=== PATIENT | female | born 1945 | race Caucasian/White ===

== ENCOUNTER 2019-10-06 13:40 | Outpatient (CLI) | payer MEDICARE, SELFPAY ==
--- NOTE | ~2019-10-06 | XR_ITS ---
EXAMINATION: XR chest 2V DATE: 10/06/2019 15:08 INDICATION: Hypertension. Preop. TECHNIQUE: Frontal and lateral views of the chest were obtained. COMPARISON: Chest single view 07/07/2017, chest CT 08/13/2016 FINDINGS: There is mild scarring at the lung apices. A calcified right lung nodule and calcified righ t hilar and mediastinal lymph nodes are consistent with old granulomatous disease. There is blunting of right posterior costophrenic angle. No pneumothorax. The heart size is normal. IMPRESSION: 1. Blunting of right posterior costophrenic angle, consistent with scarring versus tiny pleural effus ion. 2. Mild scarring at the lung apices. Reviewed, dictated and finalized at location A. IMPRESSION: 1. Blunting of right posterior costophrenic angle, consistent with scarring oleksandr eladio tiny pleural effusion. 2. Mild scarring at the lung apices.
[2019-10-06 15:08] LABS: Basophils Absolute Auto 0.1 K/mm3 (0.0-0.1); Basophils Percent Auto 0.8 % (0.2-1.2); Eosinophils Percent Auto 0.1 % (0-4.4); Hematocrit 42.5 % (37.0-47.0); Hemoglobin 13.8 g/dL (12.0-15.0); Immature Granulocyte Absolute 0.44 K/mm3 (0.00-0.031); Immature Granulocyte Percent A 3.8 % (0-0.5); Lymphocytes Absolute Auto 1.11 K/mm3 (0.9-3.2); Lymphocytes Percent Auto 9.7 % (18.3-44.2); Mean Corpuscular HGB Conc 32.5 g/dl (32-36); Mean Corpuscular Hemoglobin 31.3 pg (26-34); Mean Corpuscular Volume 96.4 fl (80-100); Mean Platelet Volume 10.4 fl (7.4-10.4); Monocytes Absolute Auto 0.5 K/mm3 (0.1-0.6); Neutrophils Absolute Auto 9.3 K/mm3 (1.3-6.7); Neutrophils Percent Auto 81.6 % (45.5-73.1); Platelet Count Result 256 k/mm3 (150-375); Red Blood Count 4.41 M/mm3 (4.2-5.4); White Blood Count 11.5 K/mm3 (4.5-10.0)
[2019-10-06 15:19] LABS: Albumin Level 4.7 g/dL (3.5-5.1); Blood Urea Nitrogen 23 mg/dL (7-17); Calcium 10.2 mg/dL (8.4-10.2); Carbon Dioxide 29 mmol/L (22-30); Chloride 98 mmol/L (98-107); Estimated Glomerular Filt Rate 31; Glucose 104 mg/dL (65-105); Potassium 3.9 mmol/L (3.4-5.0); Sodium 133 mmol/L (137-145)
[2019-10-06 15:20] LABS: Hemoglobin A1C 5.1 % (<5.7)
[2019-10-06 15:21] LABS: Urine Cotinine NEGATIVE
== END 2019-10-06 13:41 | disposition home or self-care (01) ==
LOC: ANHSURGERY 13:45
PROVIDERS: PCP Internal Medicine; Visit Provider Orthopaedic Surgery
DX: M17.11 Unilateral primary osteoarthritis, right knee (principal); Z01.818 Encounter for other preprocedural examination; R91.8 Other nonspecific abnormal finding of lung field
CPT/HCPCS: 36415; 71046; 80048; 80307; 82040; 83036; 85025; 86850; 86900; 86901; 87070

== ENCOUNTER 2019-10-12 12:10 | Outpatient (CLI) | payer MEDICARE, SELFPAY ==
[2019-10-12 12:52] LABS: Hematocrit 41.2 % (37.0-47.0); Hemoglobin 13.6 g/dL (12.0-15.0); Mean Corpuscular Hemoglobin 31.2 pg (26-34); Mean Corpuscular Volume 94.5 fl (80-100); Mean Platelet Volume 10.4 fl (7.4-10.4); Platelet Count Result 243 k/mm3 (150-375); Red Blood Count 4.36 M/mm3 (4.2-5.4); Red Cell Distribution Width 13.1 % (11.5-14.5); White Blood Count 11.3 K/mm3 (4.5-10.0)
[2019-10-12 12:59] LABS: Creatinine Urine 41.3 mg/dL; Total Protein Urine Random 13 mg/dL
[2019-10-12 13:05] LABS: Albumin Level 4.8 g/dL (3.5-5.1); Blood Urea Nitrogen 24 mg/dL (7-17); Calcium 10.4 mg/dL (8.4-10.2); Carbon Dioxide 29 mmol/L (22-30); Chloride 97 mmol/L (98-107); Estimated Glomerular Filt Rate 37; Glucose 110 mg/dL (65-105); Phosphorus 3.5 mg/dL (2.5-4.5); Potassium 3.9 mmol/L (3.4-5.0); Sodium 133 mmol/L (137-145)
[2019-10-12 13:16] LABS: Parathyroid Intact 103.6 pg/mL (7.5-53.5)
[2019-10-12 13:48] LABS: Vitamin D 25 Hydroxy 51.1 ng/mL
[2019-10-18 15:56] LABS: Chloride Rand Ur 47 mmol/L (32-290); Chloride/Creatinine Rand Ur 118 (38-318); Creatinine Random Urine 40 mg/dL (20-275)
== END 2019-10-12 12:11 | disposition home or self-care (01) ==
PROVIDERS: PCP Internal Medicine; Referring Provider Orthopaedic Surgery; Visit Provider Internal Medicine Nephrology
DX: N18.3 Chronic kidney disease, stage 3 (moderate) (principal)
CPT/HCPCS: 36415; 80069; 82306; 82436; 82570; 83970; 84156; 85027; 85999

== ENCOUNTER 2019-10-14 00:03 | Outpatient (CLI) | payer MEDICARE, SELFPAY ==
[2019-10-14 17:53] LABS: SARS-CoV-2 RNA PCR Negative
== END 2019-10-14 00:04 | disposition home or self-care (01) ==
PROVIDERS: PCP Internal Medicine; Visit Provider Orthopaedic Surgery
DX: Z20.828 Contact with and (suspected) exposure to other viral communicable diseases (principal); Z01.812 Encounter for preprocedural laboratory examination
CPT/HCPCS: 87635; C9803; U0003

== ENCOUNTER 2019-10-17 02:06 | Day surgery (SDC) | payer MEDICARE, SELFPAY ==
[2019-10-06 14:23] VITALS: BMI 21.4
[2019-10-06 15:03] VITALS: BP 161/89; PULSE 84; RESP 18; TEMP 37; O2SAT 98
--- NOTE | 2019-10-14 13:52 | HP_ITS ---
DATE OF SERVICE: 10/17/2019 ADMIT DIAGNOSIS: Degenerative joint disease, right knee. HISTORY OF PRESENT ILLNESS: The patient is a 74-year-old female patient of Dr. Isaacs presents today for a right total knee arthroplasty. She has a history of rheumatoid arthritis and she is having continued symptoms of rather severe pain in the right knee. She has been on rheumatoid medications on a regular basis. She has had 2 prior cortisone injections with aspirations in the past, which gave her only very short-term relief of her symptoms, last ones being well over 3 months. She has advanced arthritis in the knee, mostly in the medial compartment as well as mildly in the patellofemoral joint. She has reached a point where her symptoms were rather severe on daily basis and feels she would rather proceed with total knee arthroplasty rather continue nonsurgical treatment. PAST MEDICAL HISTORY: She has had tubal ligation in the past, tonsils in the past. She has a history of atrial fibrillation. She has also had a history of runs of SVT seen on Holter monitor in the past as well. CURRENT MEDICATIONS: 1. Alprazolam 0.5 mg q.h.s. 2. Atorvastatin 20 mg daily. 3. Carvedilol 3.125 mg daily. 4. Hydrochlorothiazide 25 mg daily. 5. Leflunomide 10 mg daily. 6. Lysine 500 mg daily. 7. Mag oxide 400 mg twice a day. 8. Omeprazole 40 mg daily. 9. Potassium 99 twice daily. 10. Prednisone 5 mg daily. 11. Spironolactone 25 mg daily. 12. Vitamin B complex daily. 13. Xarelto 15 mg daily. ALLERGIES: SULFADIAZINE, WHICH CAUSES SEVERE NAUSEA. FAMILY HISTORY: Severe hypertension disorder and cancer. SOCIAL HISTORY: She is a nonsmoker, who quit 20 years ago. PHYSICAL EXAMINATION: VITAL SIGNS: The patient is 5 feet 5 inches tall. Other vital signs per nursing on the morning of surgery. HEENT: Grossly normal. LUNGS: Clear bilaterally. HEART: Regular rate and rhythm. EXTREMITIES: Range of motion of the right knee is from 0-145 degrees. She has moderately large effusion and synovitis. No obvious instability. Full range of motion of the hip without discomfort. Negative Stinchfield maneuvers. Moderate tenderness diffusely around the right knee. Venous stasis skin changes in both calves, right greater than left. No ulcers noted. 2+ dorsalis pedis, 1+ posterior tibial pulse. Reports numbness and tingling in both feet, which is chronic. She has no edema in the lower extremities. She has pronounced upper thoracic kyphosis and she does have dependent rubor in the right 2nd and 3rd toes. Walks with a mild limp. DIAGNOSTIC DATA: X-ray showed advanced medial compartment arthritis. There is medial subluxation of the femur on the tibia. Osteopenia noted. IMPRESSION: The patient has severe medial compartment arthritis with continued symptoms in her knee. She would like to proceed with total knee arthroplasty at this point. Surgical procedure as well as risks and complications were discussed. All questions were answered and we will proceed. The patient will see Dr. Isaacs for presurgical clearance. She has seen Dr. Oscar, the head of science and has been evaluated. She has had a stress test done on 09/28 of this year. Ejection fraction was 64% with normal left ventricular function, normal myocardial perfusion. Overall negative stress test. She has been cleared from Dr. Oscar. She will stop her Xarelto in 4 days prior to surgery. The patient also has stage 3 kidney disease, which is chronic and stable. She has seen Dr. Gao, non ferrous material handler and has been cleared on his standpoint as well. We will avoid anti-inflammatories on the patient postoperatively. Her nasal swab was negative. Sodium was slightly low at 133, potassium was normal. Her creatinine is 1.6 with a GFR of 31.
[2019-10-17] VITALS (14 sets, daily range): BP systolic 141–178; BP diastolic 67–96; PULSE 70–84; RESP 12–18; TEMP 36–36.7; O2SAT 94–100
--- NOTE | ~2019-10-17 | XR_ITS ---
EXAMINATION: XR knee RT 2V DATE: 10/17/2019 10:44 INDICATION: Postoperative evaluation following right total knee arthroplasty. TECHNIQUE: Anteroposterior and lateral views of the right knee were obtained. COMPARISON: None. FINDINGS: Right total knee arthroplasty with patellar resurfacing appears well seated and in near anatomic alig nment. No fractures identified. Expected postoperative subcutaneous intramedullary and intra-articul ar gas. IMPRESSION: 1. Right total knee arthroplasty, negative for postoperative purposes. Reviewed, dictated and finalized at location A.
--- NOTE | 2019-10-17 06:44 | WPDANESEPPF ---
Anes - Initial Pre Proc Eval Procedure: Operation Date: 10/17/19 07:30 Proposed Procedures p Right Total Knee Arthroplasty - Arash Oconnor MD Date/Time: 10/17/19 06:44 Surgeon: Arash Oconnor MD Pre Op Diagnosis: Right Knee RA Patient Data Age: 74 Gender: F Height: 1.7 m Weight: 61.5 kg Last Vital Signs Temp 37.0 C 10/06/19 15:03 Pulse 84 10/06/19 15:03 Resp 18 10/06/19 15:03 BP 161/89 H 10/06/19 15:03 Pulse Ox 98 10/06/19 15:03 Allergies Allergy/AdvReac Type Severity Reaction Status Date / Time Sulfa (Sulfonamide Allergy Unknown Nausea Verified 10/17/19 06:13 Antibiotics) Home Medications Medication Instructions Recorded Confirmed Type alprazolam 0.5 mg PO HS 10/06/19 10/06/19 History ascorbic acid (vitamin C) 500 mg PO DAILY 10/06/19 10/06/19 History atorvastatin 20 mg PO DAILY 10/06/19 10/06/19 History calcium citrate-vitamin D3 1 tablet PO DAILY 10/06/19 10/06/19 History [Citracal Regular] carvedilol 3.125 mg PO BID 10/06/19 10/06/19 History hydrochlorothiazide 25 mg PO DAILY 10/06/19 10/06/19 History lysine 500 mg PO DAILY 10/06/19 10/06/19 History magnesium oxide 400 mg PO BID 10/06/19 10/06/19 History omeprazole 40 mg PO DAILY 10/06/19 10/06/19 History potassium gluconate 198 mg PO DAILY 10/06/19 10/06/19 History prednisone 5 mg PO EVERY OTHER DAY 10/06/19 10/06/19 History prednisone 10 mg PO EVERY OTHER DAY 10/06/19 10/06/19 History rivaroxaban [Xarelto] 15 mg PO QPM 10/06/19 10/06/19 History spironolactone 25 mg PO BID 10/06/19 10/06/19 History vitamin B complex [B 1 tablet PO QPM 10/06/19 10/06/19 History Complex-Vitamin B12] Patient hx anesthesia problems: none Family hx anesthesia problems: none PMFSH Past Medical History Medical History (Updated 10/14/19 @ 13:14 by Eriberto Sanchez DO) Anxiety Atrial fibrillation GERD (gastroesophageal reflux disease) Hyperlipidemia Hypertension Rheumatoid arthritis Surgical History Surgical History (Updated 10/14/19 @ 13:14 by Eriberto Sanchez DO) History of tonsillectomy History of tubal ligation Family History Family History (Updated 10/26/18 @ 13:48 by DOCTOR UNKNOWN) Father Carcinoma of colon Mother Family history of congestive heart failure Other Family history of malignant neoplasm Hypertension Social History Social History Smoking status: Former smoker Smoking end date: 04/27/93 Alcohol intake: current Anes - Eval Final PreProcedure Day of Procedure 10/17/19 06:44 Patient weight: normal Heart: regular rate and rhythm Lungs: clear to auscultation and normal air movement Airway: Mallampati scale class II Neurological: alert and oriented Last oral intake: >/= 8 hours ASA classification: III Emergent: no Anesthetic plan: proceed Anesthesia type and monitoring: general LMA and standard monitoring Informed Consent: The patient's anesthetic plan and its attendant risks and benefits were discussed with the patient/family/POA. Questions were solicited and answers provided to the satisfaction of the patient/family/POA.
[2019-10-17] MEDS: LACTATED RINGERS 1,000 ML 30 ML IV CONT ×2 (06:45→10:35)
--- NOTE | 2019-10-17 07:24 | WPDHPUPDATE1 ---
History and Physical Update Update Date/Time: 10/17/19 07:24 History and Physical has been reviewed, including an updated exam of the patient. There are NO changes in the patient's condition. Risks, benefits, and alternatives have been discussed and questions answered. Patient agrees to proceed with procedure. Pt has venous stasis skin changes and 2 small 3-4 week old dry eschars on right leg which look to be healing fine. No Cellulitis . Risks of these worsening and risk of infection discussed . Option of postponement discussed. She would rather proceed and i think that is reasonable.
[2019-10-17] MEDS: ceFAZolin 2 GM/D5W 50 ML 2 GM/50 ML BAG IVPB (07:28)
[2019-10-17] MEDS: TRANEXAMIC ACID 1,000MG/ISO100 1,000 MG/100 ML BAG 200 MG IVPB (07:37)
[2019-10-17] MEDS: ceFAZolin SODIUM 1 GM VIAL 3 GM IRRIGATION (07:56)
[2019-10-17] MEDS: GENTAMICIN BONE CEMENT REFOBACIN 1 EACH TOPICAL (07:57)
[2019-10-17] MEDS: ceFAZolin SODIUM 1 GM VIAL IV PUSH (09:41)
--- NOTE | 2019-10-17 10:06 | PM.PROC ---
Procedure Note - Detailed Date of procedure: 10/17/19 Pre-op diagnosis: Right Knee RA RA OA right knee Post-op diagnosis: same Procedure performed: Right total knee arthroplasty Description of procedure: Patient was brought to the operating room and general anesthesia was administered. She received 2 g of Ancef 1 g of tranexamic acid preoperatively. The right leg was prepped draped in usual fashion. An op site was placed on the too small eschars. Limb was exsanguinated and tourniquet elevated to 250 mmHg. A 7 in longitudinal midline incision was used and a vastus medialis splitting approach utilized. Infrapatellar and suprapatellar fat pads were excised and a quadriceps synovectomy carried out. The cartilage on the patella and trochlea were in good condition but with her history of rheumatoid arthritis patellar resurfacing was selected. Patellar patella measured 23 mm in thickness and was cut to 17 mm. Bone quality of the patella was good. Next a guide rommel was inserted down the femoral canal after aspiration of canal contents using the 5 degree valgus cutting bushing 10 mm of bone removed the distal femur. This removed a little bit less than 10 medially because of osteophyte. Then we made the cut we introduced a few degrees of slope as she had a prominent curve on her distal femur. Next the tibial plateau was cut. We made a skim cut off the low point of the posterior central defect in the medial plateau in this removed about 8 laterally. PCL was recessed. Mild osteoporosis noted in the lateral plateau. Meniscal remnants were excised. The knee was just a little bit tight with the 10 mm spacer block in extension at this point. In flexion the medial side measured 9 mm the lateral gap 14. We set the femoral sizing guide to 5? of external rotation which matched Whitesides line nicely. Posterior referencing pins were placed. We placed the 65 cutting block and we saw that this would notch we went up to the 67.5 vanguard cutting block and this gave a flush cut with the anterior cortex. Posterior chamber cuts were made. The 67.5 overhung 1 mm laterally when it was line to line medially but otherwise fit well this time. The tibial alignment was confirmed to be appropriate. We had not released any medial capsule from the tibia thus far and we found it unnecessary to do so during the procedure. The tibia was sized to a size 71 vanguard which fit line to line posterolateral to anteromedial 1 placed at proper rotation referenced off the medial 3rd of the tibial tubercle anterior cortex of the tibial plateau and the foot. The tibia was punched and we trialed and with the size 10 insert we seemed to have appropriate stability in flexion and laterally and opened up 2 mm medial 1 appropriate anterior drawer stability and gravity flexion 145. S we were lacking about 10? of extension and there was a little bit of play medially laterally at this point. We removed the femoral trial released posterior central capsule and trialed again and this time the knee lacked about 6 or 7? of extension S. We proceeded to remove additional 2 mm of distal femur at this time. Chamfer cuts were reviewed sized. There is no posterior femoral bone removed this point. We trialed and the knee had a barely positive bounce at this time with the 10 insert 2-3 medial and 1-2 lateral opening. We removed we did a more thorough posterior central capsule released from the femur and then retry in the knee came out easily to full extension with a negative bounce with again 2-3 opening medial 1-2 lateral. Lug holes for the femur were drilled. The patella was sized to a 31 thin lug holes drilled. The bony surfaces were thoroughly irrigated and dried. A step drill was used in the sclerotic surface of the medial tibial plateau to make multiple perforations there. The mixed 2 batches of methylmethacrylate 1 continue gentamicin powder the cement was immediately applied the tibial component and then applied t
--- NOTE | 2019-10-17 11:16 | SUR.PHASEI ---
1115 - family updated on pt's status
[2019-10-17] MEDS: ACETAMINOPHEN 500 MG TABLET 1000 MG PO ×2 (14:08→20:00)
[2019-10-17] MEDS: POTASSIUM CHLORIDE 10 MEQ TABLET.ER PO (15:13)
[2019-10-17] MEDS: predniSONE 10 MG TABLET PO (15:13)
[2019-10-17] MEDS: SENNA/DOCUSATE SODIUM TABLET 2 TAB PO (16:54)
[2019-10-17] MEDS: MAGNESIUM OXIDE 400 MG TABLET PO (16:54)
[2019-10-17] MEDS: DOCUSATE SODIUM 100 MG CAPSULE PO (16:54)
[2019-10-17] MEDS: SPIRONOLACTONE 25 MG TABLET PO (16:54)
[2019-10-17] MEDS: VITAMIN B COMPLEX CAPSULE 1 CAP PO (16:54)
[2019-10-17] MEDS: FAMOTIDINE 20 MG TABLET PO (21:03)
[2019-10-17] MEDS: carvediloL 3.125 MG TABLET PO (21:03)
[2019-10-17] MEDS: ALPRAZOLAM 0.5 MG TABLET PO (21:03)
[2019-10-17] MEDS: APIXABAN 2.5 MG TABLET PO (21:03)
[2019-10-17] MEDS: ONDANSETRON INJ 4 MG/2 ML VIAL IV PUSH (21:07)
--- NOTE | 2019-10-17 23:29 | PM.IMCN ---
Assessment and Plan Assessment and plan (1) Status post total knee replacement, right: Code(s): Z96.651 - Presence of right artificial knee joint Status: Acute Assessment and Plan: Postop care per Ortho. The patient had been holding her Xarelto prior to surgery. She is now on Eliquis per Ortho for DVT prophylaxis. Pain management per Ortho. PT OT per ortho as well. (2) Hyperlipidemia: Code(s): E78.5 - Hyperlipidemia, unspecified Status: Chronic Assessment and Plan: She was continued on atorvastatin (3) Hypertension: Code(s): I10 - Essential (primary) hypertension Status: Chronic Assessment and Plan: She was continued on hydrochlorothiazide, Aldactone, and Coreg. Please continue to monitor basic metabolic panel. (4) Rheumatoid arthritis: Code(s): M06.9 - Rheumatoid arthritis, unspecified Status: Chronic Assessment and Plan: She has been continue with her prednisone she is on lysine at home but is on hold here (5) GERD (gastroesophageal reflux disease): Code(s): K21.9 - Gastro-esophageal reflux disease without esophagitis Status: Chronic Assessment and Plan: She has been continued on Pepcid (6) Anxiety: Code(s): F41.9 - Anxiety disorder, unspecified Status: Chronic Assessment and Plan: She takes Xanax at home and has been continued here. (7) Atrial fibrillation: Code(s): I48.91 - Unspecified atrial fibrillation Status: Chronic Assessment and Plan: She has paroxysmal atrial fibrillation. She also has a history of SVT. She did have a cardiac clearance prior to the surgery today. She was on Xarelto and that was on hold. She is now on Eliquis for DVT prophylaxis. She stated that she did wear a Holter monitor for about 7 days and reportedly only had 1 day where her heart rate was fast. HPI Data of Consult Consult date: 10/17/19 Requesting Physician: Arash Anaya MD Primary Care Provider: Jason Isaacs MD Consult Narrative Narrative: Chasidy Thomas is a 74 year old female who had a right total knee arthroplasty performed today by Dr. anaya the patient has a history of rheumatoid arthritis and has been on prednisone. The patient has had severe pain but has not made her immobile. The patient stated that it takes her moving around to help with the discomfort. She stated that the longer that she sits around her lays around the worse the pain gets. She has had 2 prior cortisone injections with aspirations in the past and only lasted for a short period of time with symptomatic relief. The patient is on steroids for her rheumatoid arthritis. The patient initially was scheduled to have surgery last month but due to the COVID outbreak she was not able to get it until today. The patient did have a nerve block and is not having any discomfort at this time. Although she stated she did has some mild nausea and has some acid reflux. Date of service 10/17/[address] anaya for this consult Review of Systems Review of Systems: Narrative: No fever no chills. All systems reviewed & are unremarkable except as noted in HPI and below Constitutional: Constitutional: Reports as per HPI and Reports no additional constitutional complaints Eyes: Eyes: Reports as per HPI and Reports no additional eye complaints ENT: Reports system reviewed and no additional complaints, except as documented and Reports Normal hearing present Cardiovascular: Cardiovascular: Reports no additional cardiovascular complaints Respiratory: Respiratory: Reports no additional respiratory complaints and Reports no additional respiratory complaints Gastrointestinal: Gastrointestinal: Reports as per HPI and Reports no additional gastrointestinal complaints Musculoskeletal: Musculoskeletal: Reports no additional musculoskeletal complaints Integumentary/Breasts: Skin/Breast: Reports system reviewed and no additional complai
[2019-10-18] MEDS: ACETAMINOPHEN 500 MG TABLET 1000 MG PO ×2 (01:43→08:06)
[2019-10-18 02:00] VITALS: BP 125/66; PULSE 79; RESP 12; TEMP 36.6; O2SAT 100
[2019-10-18 05:56] LABS: Basophils Percent Auto 0.2 % (0.2-1.2); Hematocrit 35.4 % (37.0-47.0); Hemoglobin 11.8 g/dL (12.0-15.0); Immature Granulocyte Absolute 0.24 K/mm3 (0.00-0.031); Immature Granulocyte Percent A 1.3 % (0-0.5); Lymphocytes Absolute Auto 0.92 K/mm3 (0.9-3.2); Mean Corpuscular HGB Conc 33.3 g/dl (32-36); Mean Corpuscular Hemoglobin 31.5 pg (26-34); Mean Corpuscular Volume 94.4 fl (80-100); Mean Platelet Volume 10.6 fl (7.4-10.4); Monocytes Absolute Auto 1.3 K/mm3 (0.1-0.6); Neutrophils Absolute Auto 15.9 K/mm3 (1.3-6.7); Neutrophils Percent Auto 86.5 % (45.5-73.1); Platelet Count Result 221 k/mm3 (150-375); Red Blood Count 3.75 M/mm3 (4.2-5.4); Red Cell Distribution Width 13.2 % (11.5-14.5); White Blood Count 18.4 K/mm3 (4.5-10.0)
[2019-10-18 06:00] VITALS: BP 134/59; PULSE 71; RESP 12; TEMP 36.7; O2SAT 98
[2019-10-18 06:14] LABS: Blood Urea Nitrogen 16 mg/dL (7-17); Calcium 8.5 mg/dL (8.4-10.2); Carbon Dioxide 25 mmol/L (22-30); Chloride 96 mmol/L (98-107); Estimated CRCL calculation 42 ml/min; Estimated Glomerular Filt Rate 54; Glucose 123 mg/dL (65-105); Potassium 3.7 mmol/L (3.4-5.0); Sodium 127 mmol/L (137-145)
--- NOTE | 2019-10-18 06:29 | PM.PNORT ---
Progress Note: A&P Additional Plan POD 1 alert min pain labs-noted, Cr-1.00, wd-dry min swelling, pt has been up with PT yesterday , NVI, overall doing well, plan to send home later today Subjective Subjective Date/Time Seen: 10/18/19 06:29 Objective Data Vital Signs Vital Signs: Vital Signs - 24 hr 10/17/19 07:11 10/17/19 10:35 10/17/19 10:50 Temperature 36.6 C 36.2 C L Pulse Rate 84 80 72 Respiratory Rate 16 14 12 Blood Pressure 150/81 H 178/96 H 165/96 H Pulse Oximetry 100 100 100 10/17/19 11:00 10/17/19 11:15 10/17/19 11:20 Temperature 36.0 C L Pulse Rate 72 72 76 Respiratory Rate 14 18 12 Blood Pressure 169/76 H 161/68 H 157/80 H Pulse Oximetry 100 97 94 10/17/19 11:35 10/17/19 12:00 10/17/19 12:15 Temperature 36.3 C L 36.2 C L Pulse Rate 71 71 72 Respiratory Rate 16 16 Blood Pressure 167/72 H 171/74 H 166/67 H Pulse Oximetry 96 97 98 10/17/19 12:45 10/17/19 13:45 10/17/19 18:00 Temperature 36.0 C L 36.3 C L 36.1 C L Pulse Rate 70 74 76 Respiratory Rate 16 16 16 Blood Pressure 163/71 H 157/74 H 150/71 H Pulse Oximetry 98 98 99 10/17/19 21:03 10/17/19 22:00 10/18/19 02:00 Temperature 36.7 C 36.6 C Pulse Rate 80 81 79 Respiratory Rate 12 12 Blood Pressure 141/79 H 125/66 Pulse Oximetry 100 100 Intake/Output Intake/Output: Intake & Output 10/15/19 10/16/19 10/17/19 10/18/19 23:59 23:59 23:59 23:59 Intake Total 1710 Balance 1710 Meds/Results Medications: Active Medications Generic Name Dose Route Start Last Admin Trade Name Freq PRN Reason Stop Dose Admin Acetaminophen 1,000 mg 10/17/19 14:00 10/18/19 01:43 Tylenol Tablet PO 1,000 mg Q6H CHASE Administration Alprazolam 0.5 mg 06/22/20 21:00 10/17/19 21:03 Xanax PO 0.5 mg HS CHASE Administration Apixaban 2.5 mg 10/17/19 21:00 10/17/19 21:03 Eliquis PO 10/29/19 09:01 2.5 mg Q12HR CHASE Administration Ascorbic Acid 500 mg 10/18/19 09:00 Vitamin C PO DAILY [facility] Atorvastatin Calcium 20 mg 10/18/19 09:00 Lipitor PO DAILY [facility] Bisacodyl 10 mg 10/17/19 11:47 Dulcolax Suppository RECTAL DAILY PRN Constipation Calcium Citrate 1 tablet 10/18/19 09:00 Calcitrate + Vit D Caplet PO 11/17/19 09:01 DAILY [facility] Carvedilol 3.125 mg 10/17/19 21:00 10/17/19 21:03 Coreg PO 3.125 mg Q12HR CHASE Administration Cephalexin HCl 500 mg 10/18/19 17:00 Keflex Capsule PO 10/25/19 17:01 TID [facility] Diphenhydramine HCl 25 mg 10/17/19 11:47 Benadryl Inj IV PUSH Q6H PRN Itching Docusate Sodium 100 mg 10/17/19 17:00 10/17/19 16:54 Colace Capsule PO 100 mg BID [facility] Administration Famotidine 20 mg 10/17/19 21:00 10/17/19 21:03 Pepcid PO 20 mg Q12HR CHASE Administration Hydrochlorothiazide 25 mg 10/18/19 09:00 Hydrochlorothiazide PO DAILY [facility] Cefazolin Sodium 1 gm in 50 mls @ 100 mls/hr 10/17/19 15:30 10/17/19 23:54 Ancef 1 Gm/D5w 50 Ml Pm IVPB 10/18/19 07:59 Infused Q8H CHASE Infusion Vancomycin HCl 1,000 mg in 250 mls @ 250 mls/hr 10/17/19 19:00 10/17/19 19:51 Vancomycin 1,000 Mg/D5w 250 Ml IVPB 10/18/19 07:59 Infused Q12H CHASE Infusion Magnesium Oxide 400 mg 10/17/19 17:00 10/17/19 16:54 Mag-Ox PO 400 mg BID CHASE Administration Morphine Sulfate 2 mg 10/17/19 11:47 Morphine Sulfate Inj IV PUSH Q2H PRN Breakthrough pain rated 4-6 Naloxone HCl 0.1 mg 10/17/19 11:47 Narcan IV PUSH Q2M PRN Opiate Reversal Non-Formulary Medication 500 mg 10/18/19 09:00 Lysine PO 11/17/19 09:01 DAILY CHASE Ondansetron HCl 4 mg 10/17/19 11:47 10/17/19 21:07 Zofran Inj IV PUSH 4 mg Q4H PRN Administration Nausea And Vomiting Oxycodone HCl 5 mg 10/17/19 13:00 10/18/19 05:19 Roxicodone Ir Tablet PO 5 mg Q4H CHASE Administration Oxycodone HCl 5 mg 10/17/19 11:47 Roxicodone Ir Tablet PO Q4H PRN Pa
[2019-10-18 08:00] VITALS: PULSE 84
--- NOTE | 2019-10-18 08:00 | WPDANESPN ---
Anes - Prog Note Post-Op Date/Time: 10/18/19 08:00 Cardiovascular status: normal Respiratory status: normal Airway patency: baseline Mental status: baseline Post-Op hydration status: normal Vital Signs: Last Vital Signs Temp 36.7 C 10/18/19 06:00 Pulse 71 10/18/19 06:00 Resp 12 10/18/19 06:00 BP 134/59 L 10/18/19 06:00 Pulse Ox 98 10/18/19 06:00 I/O: Intake & Output 10/17/19 10/18/19 10/18/19 23:59 07:59 15:59 Intake Total 840 350 Output Total 800 Balance 840 -450 Laboratory Tests 10/18/19 05:41 10/18/19 05:41 10/18/19 10/18/19 05:41 05:41 WBC 18.4 H RBC 3.75 L Hgb 11.8 L Hct 35.4 L MCV 94.4 MCH 31.5 MCHC 33.3 RDW 13.2 Plt Count 221 MPV 10.6 H Immature Gran % (Auto) 1.3 H Neut % (Auto) 86.5 H Lymph % (Auto) 5.0 L [place] % (Auto) 7.0 Eos % (Auto) 0.0 Baso % (Auto) 0.2 Lymph # (Auto) 0.92 [place] # (Auto) 1.3 H Eos # (Auto) 0.0 Baso # (Auto) 0.0 Abs Immat Gran (auto) 0.24 H Absolute Neuts (auto) 15.9 H Absolute Nucleated RBC 0.0 Nucleated RBC % 0.0 Sodium 127 L Potassium 3.7 Chloride 96 L Carbon Dioxide 25 BUN 16 Creatinine 1.00 Estim Creat Clear Calc 42 Estimated GFR 54 L Glucose 123 H Calcium 8.5 Post-procedural complaints: none Patient Feedback: Patient satisfied with anesthetic care.
[2019-10-18 08:06] VITALS: PULSE 75
[2019-10-18] MEDS: ASCORBIC ACID 500 MG TABLET PO (08:06)
[2019-10-18] MEDS: ATORVASTATIN 20 MG TABLET PO (08:06)
[2019-10-18] MEDS: carvediloL 3.125 MG TABLET PO (08:06)
[2019-10-18] MEDS: APIXABAN 2.5 MG TABLET PO (08:06)
[2019-10-18] MEDS: FAMOTIDINE 20 MG TABLET PO (08:08)
[2019-10-18] MEDS: SPIRONOLACTONE 25 MG TABLET PO (08:08)
[2019-10-18] MEDS: POTASSIUM CHLORIDE 10 MEQ TABLET.ER PO (08:08)
[2019-10-18] MEDS: hydroCHLOROthiazide 25 MG TABLET PO (08:08)
[2019-10-18] MEDS: MAGNESIUM OXIDE 400 MG TABLET PO (08:08)
[2019-10-18] MEDS: predniSONE 5 MG TABLET PO (08:08)
[2019-10-18] MEDS: DOCUSATE SODIUM 100 MG CAPSULE PO (08:08)
[2019-10-18] MEDS: SENNA/DOCUSATE SODIUM TABLET 2 TAB PO (08:09)
[2019-10-18] MEDS: polyethylene glycoL 3350 17 GM POWD.PACK PO (08:09)
[2019-10-18 10:00] VITALS: BP 148/69; PULSE 78; RESP 18; TEMP 36.6; O2SAT 99
--- NOTE | 2019-10-18 11:18 | PM.IMPN ---
Progress Note: A&P Assessment and Plan (1) Status post total knee replacement, right: Code(s): Z96.651 - Presence of right artificial knee joint Status: Acute Assessment and Plan: -----doing well postop with minimal pain. Okay to discharge from medical standpoint. I have confirmed that ortho once the reduced dose of Eliquis and then she will continue her Xarelto after Eliquis is done. (2) Hyperlipidemia: Code(s): E78.5 - Hyperlipidemia, unspecified Status: Chronic Assessment and Plan: -----continue home meds (3) Hypertension: Code(s): I10 - Essential (primary) hypertension Status: Chronic Assessment and Plan: -----Continue home meds. HCTZ stopped, losartan started. (4) Rheumatoid arthritis: Code(s): M06.9 - Rheumatoid arthritis, unspecified Status: Chronic Assessment and Plan: -----Continue steroids. I don't believe she received extra steroids perioperative. Unsure of outpt work up. She has low sodium but that seems chronic and her potassium is okay. No signs of adrenal insufficiency--bp and glucose WNL. (5) GERD (gastroesophageal reflux disease): Code(s): K21.9 - Gastro-esophageal reflux disease without esophagitis Status: Chronic Assessment and Plan: -----No acute symptoms. (6) Anxiety: Code(s): F41.9 - Anxiety disorder, unspecified Status: Chronic Assessment and Plan: -----continue xanax (7) Atrial fibrillation: Code(s): I48.91 - Unspecified atrial fibrillation Status: Chronic Assessment and Plan: -------She has paroxysmal atrial fibrillation. She also has a history of SVT. She did have a cardiac clearance prior to the surgery today. She was on Xarelto and that is on hold until 2 weeks post op. She is now on Eliquis for DVT prophylaxis (confrimed with ortho). (8) Hyponatremia: Code(s): E87.1 - Hypo-osmolality and hyponatremia Status: Acute Assessment and Plan: -----she was normal back in March but low preop at 133. After surgery she is now 127. I have spoke to her primary care physician we are going to stop the hydrochlorothiazide and the potassium. To cover her hypertension, losartan was started and we will do a BMP in 1 week. He is going to follow her for this. Time Spent With Patient Time with patient: 25 - 35 minutes Subjective Date/time seen: 10/18/19 11:18 Interval history: Pt is a 74-year-old female here for right total knee replacement. Patient was seen today and states her pain is a 6/10 requesting Tylenol. She had some nausea earlier but overall doing okay. We spoke about her sodium and she does not think she has history of hypernatremia. 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 The patient has no chest pain or shortness of breath. Review of Systems Review of Systems: All systems reviewed & are unremarkable except as noted in HPI and below Exam Narrative: Exam Narrative: General: Well developed well nourished patient in NAD HEENT: normocephalic Neck: supple Neuro: Alert and oriented x4 CV:RRR Resp:CTA Abd: Soft, non distended. No pain to palpation. Positive bowel sounds Extremities: Right knee with bandage patch without any bleeding, excessive erythema, or swelling. Negative Homans sign Objective Data Vital Signs Vital Signs: Vital Signs - 24 hr 10/17/19 11:20 10/17/19 11:35 10/17/19 12:00 Temperature 96.8 F L 97.4 F L Pulse Rate 76 71 71 Respiratory Rate 12 16 Blood Pressure 157/80 H 167/72 H 171/74 H Pulse Oximetry 94 96 97 10/17/19 12:15 10/17/19 12:45 10/17/19 13:45 Temperature 97.2 F L 96.8 F L 97.4 F L Pulse Rate 72 70 74 Respiratory Rate 16 16 16 Blood Pressure 166/67 H 163/71 H 157/74 H Pulse Oximetry 98 98 98 10/17/19
--- NOTE | 2019-10-18 12:40 | DS_ITS ---
DATE OF DISCHARGE: 10/18/2019 DIAGNOSIS: Degenerative joint disease, right knee. The patient is a 74-year-old female who underwent right total knee arthroplasty by Dr. Oocnnor on 10/17/2019. Underwent procedure without any complications. Postoperative, she has been afebrile. Vital signs were stable. Neurovascularly intact. Her wound is dry. She has a Mepilex dressing over it. She is on Eliquis for 2 weeks, and then she will resume her Xarelto that she takes chronically for atrial fibrillation. She has been in normal sinus rhythm while at the hospital. She is weightbearing as tolerated. She is on scheduled Tylenol and oxycodone for pain. We are not giving her Celebrex. She is on prednisone long-term and she will continue with this. She is off her leflunomide, will be off this for at least 2 weeks postop. She will go home with scheduled Tylenol as well as oxycodone for pain. MiraLAX and Senokot for constipation. Hemoglobin postop day 1 was 11.8, platelets were 221. Her creatinine improved while she has been here. She was 1.4 preop and was cleared by Nephrology after hydration with surgery. On postop day 1, creatinine is 1.00. GFR was still low at 54, but has had significant improvement. The patient was advised to go home, keep the leg elevated, but do her exercise on a regular basis. She has outpatient physical therapy starting in 2 days. We are not using JOSUE hose on her, because she has very thin skin. She was advised any questions or concerns before she goes home, she should call otherwise when she goes home. If there is any continued questions or concerns, she is to call the office; otherwise, we will see her at her appointed date. D I MT: Becca
[2019-10-18] MEDS: ONDANSETRON HCL ODT 4 MG TABLET PO (13:15)
== END 2019-10-18 13:24 | disposition home or self-care (01) ==
LOC: ANHSURGERY 06:03 → ANH2MED 11:50
PROVIDERS: Physician Assistant Surgical; PCP Internal Medicine; Visit Provider Orthopaedic Surgery
PROC: (CPT 27447; principal; 2019-10-17 07:30)
DX: M06.861 Other specified rheumatoid arthritis, right knee (principal); M17.11 Unilateral primary osteoarthritis, right knee; M81.0 Age-related osteoporosis without current pathological fracture; I10 Essential (primary) hypertension; E78.5 Hyperlipidemia, unspecified; K21.9 Gastro-esophageal reflux disease without esophagitis; I48.0 Paroxysmal atrial fibrillation; Z79.01 Long term (current) use of anticoagulants; Z87.891 Personal history of nicotine dependence
CPT/HCPCS: 27447; 36415; 73560; 80048; 85025; 97110; 97116; 97161; 97165; 97530; A9270; C1713; C1776; J0131; J0171; J0690; J1100; J2270; J2405; J2704; J2795; J3010; J3370; J7120; J7512

== ENCOUNTER 2019-10-20 10:55 | Observation (INO) | payer MEDICARE, SELFPAY ==
[2019-10-20] VITALS (8 sets, daily range): BP systolic 80–118; BP diastolic 43–65; PULSE 78–96; RESP 16–18; TEMP 36.3–36.6; O2SAT 96–99; BMI 24.5
--- NOTE | 2019-10-20 11:16 | ECG_ITS ---
Measurements Intervals [place] Rate: 86 P: 66 IN: 138 QRS: 87 QRSD: 82 T: 77 QT: 347 QTc: 417 Interpretive Statements SINUS RHYTHM BASELINE ARTIFACT- I, II, III, AVF NORMAL ECG Electronically Signed On 10-20-2019 12:47:10 CDT by Markus Ayala D.O.
[2019-10-20 11:39] LABS: Hematocrit 31.9 % (35.0-42.0); Hemoglobin 10.6 g/dL (11.7-13.8); Mean Corpuscular HGB Conc 33.2 g/dL (32.0-36.0); Mean Corpuscular Hemoglobin 31.5 pg (27.0-31.0); Mean Corpuscular Volume 94.7 fL (78.0-102.0); Mean Platelet Volume 10.6 fl (9.2-11.8); Platelet Count Result 236 K/mm3 (150-420); Red Blood Count 3.37 M/mm3 (4.20-5.40); Red Cell Distribution Width 13.1 % (11.6-14.4); White Blood Count 16.9 K/mm3 (4.8-10.8)
[2019-10-20 11:40] LABS: Add Urine Microscopic? YES; Appearance Urine Clear (Clear); Bilirubin Urine 2+ (Negative); Blood Urine Negative (Negative); Color Urine Yellow (Yellow); Glucose Urine UA Negative (Negative); Ketones Urine Trace (Negative); Leukocyte Esterase Ur Negative (Negative); Nitrate Urine Negative (Negative); Protein Urine 1+ (Negative); Urobilinogen Urine 0.2 mg/dL (0.2-1.0); pH Urine 5.5 (5.0-8.0)
[2019-10-20] MEDS: SODIUM CHLORIDE 0.9% IV 1,000 ML 999 ML IV CONT (11:43)
[2019-10-20] MEDS: ONDANSETRON INJ 4 MG/2 ML VIAL IV PUSH (11:43)
[2019-10-20 11:45] LABS: Bacteria Urine 1+ /hpf; RBC Urine 0-2 /hpf (0-2); Squamous Epithelial Cell Urine Few /hpf (Few); WBC Urine 0-3 /hpf (0-3)
[2019-10-20 11:55] LABS: Alanine Aminotransferase 34 U/L (14-59); Albumin Level 2.9 g/dL (3.4-5.0); Alkaline Phosphatase 111 U/L (46-116); Anion Gap 11.7 mmol/L (7-16); Aspartate Amino Transferase 54 U/L (15-37); Bilirubin,Total 0.8 mg/dL (0.00-1.00); Blood Urea Nitrogen 22 mg/dL (7-18); Calcium 9.4 mg/dL (8.5-10.1); Carbon Dioxide 29 mmol/L (21-32); Chloride 89 mmol/L (98-108); Estimated CRCL calculation 27 ml/min; Estimated Glomerular Filt Rate 32; Glucose 102 mg/dL (70-99); Osmolality Calculated 265 mOsm/kg (285-295); Potassium 3.7 mmol/L (3.5-5.1); Sodium 126 mmol/L (136-145); Total Protein 6.7 g/dL (6.4-8.2)
--- NOTE | 2019-10-20 12:05 | ED.NAVMDI ---
HPI - Nausea/Vomiting/Diarrhea General Chief complaint: Nausea/Vomiting/Diarrhea Stated complaint: in a lot of pain after knee surgery Source: patient Mode of arrival: ambulatory Limitations: no limitations History of Present Illness HPI Narrative: This is a 74-year-old female that presents to the emergency room status post right total knee arthroplasty on 10/16, [facility] and presents today with increased weakness with nausea vomiting diarrhea decreased appetite and orthostatic blood pressures. The patient is afebrile with a initial blood pressure of 117/64, there is no chest pain no shortness of breath. The patient has a history of hypertension, atrial fibrillation ruined rheumatoid arthritis. The patient during her hospital stay was switched from Xarelto to Eliquis, and currently on Coreg and spironolactone. The patient is unaware of any history of CHF because of a history of hypertension and atrial fibrillation. MD elicited complaint: nausea, vomiting and diarrhea Pertinent past history: anorexia Onset (ago): day(s) Description of diarrhea: semi-solid Associated nausea: Yes Associated abdominal pain: No Related Data Home Medications Medication Instructions Recorded Confirmed alprazolam 0.5 mg PO HS 10/06/19 10/20/19 ascorbic acid (vitamin C) 500 mg PO DAILY 10/06/19 10/20/19 atorvastatin 20 mg PO DAILY 10/06/19 10/20/19 calcium citrate-vitamin D3 1 tablet PO DAILY 10/06/19 10/20/19 [Citracal Regular] carvedilol 3.125 mg PO BID 10/06/19 10/20/19 lysine 500 mg PO DAILY 10/06/19 10/20/19 magnesium oxide 400 mg PO BID 10/06/19 10/20/19 omeprazole 40 mg PO DAILY 10/06/19 10/20/19 prednisone 5 mg PO EVERY OTHER DAY 10/06/19 10/20/19 prednisone 10 mg PO EVERY OTHER DAY 10/06/19 10/20/19 spironolactone 25 mg PO BID 10/06/19 10/20/19 vitamin B complex [B 1 tablet PO QPM 10/06/19 10/20/19 Complex-Vitamin B12] Allergies Allergy/AdvReac Type Severity Reaction Status Date / Time Sulfa (Sulfonamide Allergy Unknown Nausea Verified 10/17/19 06:13 Antibiotics) Review of Systems Review of Systems: All systems reviewed & are unremarkable except as noted in HPI and below PMFSH Past Medical History Medical History Anxiety Atrial fibrillation Paroxysmal GERD (gastroesophageal reflux disease) H/O supraventricular tachycardia Hyperlipidemia Hypertension Rheumatoid arthritis Surgical History Surgical History H/O cataract extraction H/O dilation and curettage A couple times History of tonsillectomy History of tubal ligation Family History Family History Father Carcinoma of colon Mother Family history of congestive heart failure Other Family history of malignant neoplasm Hypertension Social History Social History Social History: 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 She is and lives with her . She desires ever is a durable power criminal defense attorney for healthcare. Patient desires to be a full code. She has 3 children. She is to smoke but quit when she is around 59 years old. No alcohol marijuana or illicit drugs. Smoking status: Former smoker Tobacco type: cigarettes Smoking end date: 04/27/93 Alcohol intake: never Substance use: never Gender identity (if verbalized by the patient): Female Spiritual care concerns: No Exam Const: General: no acute distress, alert and ill appearing Orientation/consciousness: patient oriented x3 HENMT: Head: normal to inspection Mouth: Yes dry mucous membranes Eyes: Cornea: corneas normal Pupils: Equal, round and reactive pupils present Neck: Neck: normal visual inspection, no lymphadenopathy and no meningeal signs Chest: Chest palpation & inspection: no
[2019-10-20 12:14] LABS: Troponin I < 0.02 ng/mL (0.00-0.056)
[2019-10-20] MEDS: KETOROLAC 30 MG/ML VIAL (*BKC) IV PUSH (12:30)
--- NOTE | 2019-10-20 12:53 | PM.IMHP ---
H&P: HPI History of Present Illness Chief complaint: dehydration Narrative: Chasidy Thomas is a 74 year old female that presented to our ED with complaints of nausea vomiting diarrhea and decreased appetite with fatigue and weakness. This patient has a history of anxiety, AFib, GERD, hyperlipidemia, hypertension, rheumatoid arthritis, supraventricular tachycardia. Patient was recently discharged [facility] status post right TKA 10/16. according to patient when she returned home she became nauseated she is not sure if she was nauseated due to the pain medication Or antibiotics. Patient noted that her appetite had decreased and there were several times that she took her antibiotics and pain medication without meals. Which could possibly be the source of her nausea vomiting. She did note that this morning she did have 1 bout diarrhea. patient noted that she was supposed to start physical therapy/ occupational therapy today but due to her fatigue and weakness she was unable to attend. Patient noted that when she would get up she will get lightheaded and was unable to participate in physical therapy/occupational therapy. she did note that her nausea has improved but remains and she feels a little bit better after receiving IV fluids. while patient was in the ED a EKG was completed which indicated sinus rhythm troponin was negative she did have blood pressure of 80/73 and is currently 04/28/2056 patient was bolus 1 fluids, lactic acid within normal limits UA did indicate bacteria. She is being admitted for dehydration, hypertension, acute kidney injury, hyponatremia.. Patient denies SOB, CP, palpitation, extremity numbness, lightheadness, dizziness, constipation, diarrhea, chills or fever. Review of Systems Review of Systems: Narrative: CONSTITUTIONAL : complains of weakness and fatigue, no weight loss, fever, chills. HEENT: Eyes: No diplopia or blurred vision. ENT: No earache, sore throat or runny nose. CARDIOVASCULAR: No pressure, squeezing, strangling, tightness, heaviness or aching about the chest, neck, axilla or epigastrium. RESPIRATORY: No cough, shortness of breath, PND or orthopnea. GASTROINTESTINAL: patient complains of nausea, vomiting or diarrhea. GENITOURINARY: No dysuria, frequency or urgency. MUSCULOSKELETAL: No muscle, back pain, joint pain or stiffness. SKIN: surgical site wound right knee NEUROLOGIC: No paresthesias, fasciculations, seizures or weakness. PSYCHIATRIC: No disorder of thought or mood. ENDOCRINE: No heat or cold intolerance, polyuria or polydipsia. HEMATOLOGICAL: No easy bruising or bleeding. 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 She is and lives with her . She desires ever is a durable power traffic law attorney for healthcare. Patient desires to be a full code. She has 3 children. She is to smoke but quit when she is around 59 years old. No alcohol marijuana or illicit drugs. Smoking status: Former smoker Tobacco type: cigarettes Second hand tobacco smoke exposure: No Smoking end date: 04/27/93 Alcohol intake: current Drinks per week:
--- NOTE | 2019-10-20 13:32 | PC.NURSE ---
Recent total knee replacement thursday, taking pain meds and noted increase in nausea, vomiting and light headed feeling, admitted for dehydration, feeling a little better at this time, oriented to room and surroundings
[2019-10-20] MEDS: SODIUM CHLORIDE 0.9% IV 1,000 ML 100 ML IV CONT ×2 (14:18→22:59)
--- NOTE | 2019-10-20 14:20 | PC.NURSE ---
ice bag to knee for comfort, no n/v, given jello and ice water to drink, no nausea at thsi time, fluids infusing
[2019-10-20] MEDS: MAGNESIUM OXIDE 400 MG TABLET PO (17:15)
[2019-10-20] MEDS: VITAMIN B COMPLEX CAPSULE 1 CAP PO (17:15)
--- NOTE | 2019-10-20 19:30 | PC.NURSE ---
Patient up to toilet. Denies being light head. no nausea or vomiting.
--- NOTE | 2019-10-20 20:30 | PC.NURSE ---
No nausea or vomiting present. Pain reported to within acceptable range.
--- NOTE | 2019-10-20 21:30 | PC.NURSE ---
Patient resting. pain 0 on FLACC.
[2019-10-20] MEDS: APIXABAN 2.5 MG TABLET PO (21:31)
[2019-10-20] MEDS: ALPRAZOLAM 0.5 MG TABLET PO (21:34)
--- NOTE | 2019-10-20 22:30 | PC.NURSE ---
Patient resting. Call light in reach. Pain 0.
--- NOTE | 2019-10-20 23:33 | PC.NURSE ---
Pt resting quietly in bed and doesnt voice any c/o discomfort.
[2019-10-21] VITALS: BP 125/56; PULSE 78; RESP 14; TEMP 36.6; O2SAT 98
--- NOTE | 2019-10-21 00:31 | PC.NURSE ---
Pt asleep and IV fluid continues to infuse as ordered. No signs of discomfort or nausea noted.
--- NOTE | 2019-10-21 01:55 | PC.NURSE ---
Pt asleep and no signs of nausea noted. IV fluid continues to infuse as ordered.
--- NOTE | 2019-10-21 02:41 | PC.NURSE ---
Pt asleep and no signs of discomfort noted. IV fluid continues to infuse as ordered.
--- NOTE | 2019-10-21 03:37 | PC.NURSE ---
Pt asleep and no signs of nausea or discomfort noted. IV fluid continues to infuse as ordered.
--- NOTE | 2019-10-21 04:24 | PC.NURSE ---
Pt called to use the bathroom. Pt up to the bathroom with her walker and assist of one. Pt voided 550 ml of clear, yellow urine and returned back to bed with her walker and assist of one.
[2019-10-21 05:28] LABS: Hematocrit 25.7 % (35.0-42.0); Hemoglobin 8.4 g/dL (11.7-13.8); Mean Corpuscular HGB Conc 32.7 g/dL (32.0-36.0); Mean Corpuscular Hemoglobin 31.6 pg (27.0-31.0); Mean Corpuscular Volume 96.6 fL (78.0-102.0); Mean Platelet Volume 9.7 fl (9.2-11.8); Platelet Count Result 147 K/mm3 (150-420); Red Blood Count 2.66 M/mm3 (4.20-5.40); Red Cell Distribution Width 13.1 % (11.6-14.4); White Blood Count 7.5 K/mm3 (4.8-10.8)
[2019-10-21 05:44] LABS: Alanine Aminotransferase 20 U/L (14-59); Albumin Level 2.2 g/dL (3.4-5.0); Alkaline Phosphatase 82 U/L (46-116); Anion Gap 12.6 mmol/L (7-16); Aspartate Amino Transferase 31 U/L (15-37); Bilirubin,Total 0.5 mg/dL (0.00-1.00); Blood Urea Nitrogen 16 mg/dL (7-18); Calcium 8.1 mg/dL (8.5-10.1); Carbon Dioxide 26 mmol/L (21-32); Chloride 101 mmol/L (98-108); Estimated CRCL calculation 36 ml/min; Estimated Glomerular Filt Rate 45; Glucose 82 mg/dL (70-99); Osmolality Calculated 282 mOsm/kg (285-295); Potassium 3.6 mmol/L (3.5-5.1); Sodium 136 mmol/L (136-145); Total Protein 5.3 g/dL (6.4-8.2)
[2019-10-21] MEDS: ACETAMINOPHEN 500 MG TABLET 1000 MG PO (05:58)
[2019-10-21] MEDS: CEPHALEXIN 500 MG CAPSULE PO (06:01)
[2019-10-21 06:03] LABS: Band Neutrophils Percent 0 % (0-6); Basophils Absolute Manual 0.15 K/mm3 (0-0.1); Basophils Percent Manual 2 % (0-1); Eosinophils Absolute Manual 0.07 K/mm3 (0.02-0.5); Eosinophils Percent Manual 1 % (1-6); Lymphocytes Absolute Manual 1.12 K/mm3 (1.1-4.5); Lymphocytes Percent Manual 15 % (18-44); Metamyelocytes Percent 1 %; Monocytes Percent Manual 12 % (3-9); Myelocytes Percent 1 %; Neutrophils Percent Manual 68 % (46-73); Platelet Estimate Adequate (Adequate)
[2019-10-21 06:07] LABS: BNP 309 pg/mL (0-100)
--- NOTE | 2019-10-21 06:14 | PC.NURSE ---
0600 Pt c/o pain in her right hip and knee and requested pain medication. Pt given tylenol 1000 mg PO for pain relief and cephalexin 500 mg PO as ordered.
[2019-10-21 07:34] VITALS: BP 103/54; PULSE 86; RESP 18; TEMP 36.6; O2SAT 94
[2019-10-21] MEDS: CALCIUM/VITAMIN D 250 MG TABLET 1 TABLET PO (08:32)
[2019-10-21] MEDS: MAGNESIUM OXIDE 400 MG TABLET PO (08:33)
[2019-10-21] MEDS: ASCORBIC ACID 500 MG TABLET PO (08:33)
[2019-10-21] MEDS: PANTOPRAZOLE SOD SESQUIHYDRATE 20 MG TAB PO (08:33)
[2019-10-21] MEDS: APIXABAN 2.5 MG TABLET PO (08:33)
[2019-10-21] MEDS: ATORVASTATIN 10 MG TABLET 20 MG PO (08:34)
[2019-10-21] MEDS: SENNA/DOCUSATE SODIUM TABLET 2 TAB PO (08:37)
[2019-10-21] MEDS: predniSONE 10 MG TABLET PO (08:39)
--- NOTE | 2019-10-21 09:33 | PC.NURSE ---
No nausea, no vomiting, denies need for pain med at this time, ice to knee, feeling better and ready to go home, hospitalist working on DC orders
[2019-10-21 11:35] LABS: Occult Blood Negative (Negative)
--- NOTE | 2019-10-21 11:39 | P.DS_ITS ---
DS: Admitting Diagnosis Admitting Diagnosis Admitting Diagnosis: Dehydration DS: Discharge Diagnosis Discharge Diagnosis (1) Acute dehydration: Code(s): E86.0 - Dehydration Status: Acute Assessment and Plan: * resolved * secondary to nausea vomiting and diarrhea and decreased appetite as evidence low sodium level (2) Hyponatremia: Code(s): E87.1 - Hypo-osmolality and hyponatremia Status: Acute Assessment and Plan: * secondary to dehydration * improved (3) Status post total knee replacement, right: Code(s): Z96.651 - Presence of right artificial knee joint Status: Acute Assessment and Plan: * s/p R TKA on 10/16 * will follow-up with ortho * continue Eliquis for 10 days and then resume Xarelto * continue Keflex (4) Rheumatoid arthritis: Code(s): M06.9 - Rheumatoid arthritis, unspecified Status: Chronic Assessment and Plan: * continue steroids (5) Hypertension: Code(s): I10 - Essential (primary) hypertension Status: Chronic Assessment and Plan: * patient blood pressure stable * (6) Hyperlipidemia: Code(s): E78.5 - Hyperlipidemia, unspecified Status: Chronic Assessment and Plan: * continues to atorvastatin (7) GERD (gastroesophageal reflux disease): Code(s): K21.9 - Gastro-esophageal reflux disease without esophagitis Status: Chronic Assessment and Plan: * continue omeprazole (8) Atrial fibrillation: Qualifiers: Atrial fibrillation type: paroxysmal Qualified Code(s): I48.0 - Paroxysmal atrial fibrillation Code(s): I48.91 - Unspecified atrial fibrillation Status: Chronic Assessment and Plan: * controlled heart rate * EKG normal sinus rhythm * patient currently on Eliquis will continue Xarelto once Eliquis is completed * follow-up with string winding machine operator or PCP (9) Anxiety: Code(s): F41.9 - Anxiety disorder, unspecified Status: Chronic Assessment and Plan: * continue Xanax (10) Other elevated white blood cell count: Code(s): D72.828 - Other elevated white blood cell count Status: Acute Assessment and Plan: * within normal limits * probably secondary to the use of steroids for rheumatoid arthritis * patient afebrile no signs and symptoms infection noted * (11) Hypotension: Code(s): I95.9 - Hypotension, unspecified Status: Acute Assessment and Plan: * resolved * secondary to dehydration * (12) Acute kidney injury: Code(s): N17.9 - Acute kidney failure, unspecified Status: Acute Assessment and Plan: * improved * secondary to dehydration * creatinine is elevated at 1.59 currently 1.18 * unsure of patient's baseline * patient creatinine back in 06/2017 was 0.90 * patient's creatinine between 03/15- currently has been between 1.00 and 1.69 * (13) Elevated AST (SGOT): Code(s): R74.0 - Nonspecific elevation of levels of transaminase and lactic acid dehydrogenase [LDH] Status: Acute Assessment and Plan: * resolved * possibly secondary to dehydration * DS: Summary Hospital Course Hospital Course: Narrative: Chasidy Thomas is a 74 year old female that presented to our ED with complaints of nausea vomiting diarrhea and decreased appetite with fatigue and weakness. This patient has a history of anxiety, AFib, GERD, hyperlipidemia, hypertension, rheumato
--- NOTE | 2019-10-21 11:39 | PM.DS ---
DS: Admitting Diagnosis Admitting Diagnosis Admitting Diagnosis: Dehydration DS: Discharge Diagnosis Discharge Diagnosis (1) Acute dehydration: Code(s): E86.0 - Dehydration Status: Acute Assessment and Plan: resolved secondary to nausea vomiting and diarrhea and decreased appetite as evidence low sodium level (2) Hyponatremia: Code(s): E87.1 - Hypo-osmolality and hyponatremia Status: Acute Assessment and Plan: secondary to dehydration improved (3) Status post total knee replacement, right: Code(s): Z96.651 - Presence of right artificial knee joint Status: Acute Assessment and Plan: s/p R TKA on 10/16 will follow-up with ortho continue Eliquis for 10 days and then resume Xarelto continue Keflex (4) Rheumatoid arthritis: Code(s): M06.9 - Rheumatoid arthritis, unspecified Status: Chronic Assessment and Plan: continue steroids (5) Hypertension: Code(s): I10 - Essential (primary) hypertension Status: Chronic Assessment and Plan: patient blood pressure stable (6) Hyperlipidemia: Code(s): E78.5 - Hyperlipidemia, unspecified Status: Chronic Assessment and Plan: continues to atorvastatin (7) GERD (gastroesophageal reflux disease): Code(s): K21.9 - Gastro-esophageal reflux disease without esophagitis Status: Chronic Assessment and Plan: continue omeprazole (8) Atrial fibrillation: Qualifiers: Atrial fibrillation type: paroxysmal Qualified Code(s): I48.0 - Paroxysmal atrial fibrillation Code(s): I48.91 - Unspecified atrial fibrillation Status: Chronic Assessment and Plan: controlled heart rate EKG normal sinus rhythm patient currently on Eliquis will continue Xarelto once Eliquis is completed follow-up with automation qa lead or PCP (9) Anxiety: Code(s): F41.9 - Anxiety disorder, unspecified Status: Chronic Assessment and Plan: continue Xanax (10) Other elevated white blood cell count: Code(s): D72.828 - Other elevated white blood cell count Status: Acute Assessment and Plan: within normal limits probably secondary to the use of steroids for rheumatoid arthritis patient afebrile no signs and symptoms infection noted (11) Hypotension: Code(s): I95.9 - Hypotension, unspecified Status: Acute Assessment and Plan: resolved secondary to dehydration (12) Acute kidney injury: Code(s): N17.9 - Acute kidney failure, unspecified Status: Acute Assessment and Plan: improved secondary to dehydration creatinine is elevated at 1.59 currently 1.18 unsure of patient's baseline patient creatinine back in 06/2017 was 0.90 patient's creatinine between 03/15- currently has been between 1.00 and 1.69 (13) Elevated AST (SGOT): Code(s): R74.0 - Nonspecific elevation of levels of transaminase and lactic acid dehydrogenase [LDH] Status: Acute Assessment and Plan: resolved possibly secondary to dehydration DS: Summary Hospital Course Hospital Course: Narrative: Chasidy Thomas is a 74 year old female that presented to our ED with complaints of nausea vomiting diarrhea and decreased appetite with fatigue and weakness. This patient has a history of anxiety, AFib, GERD, hyperlipidemia, hypertension, rheumatoid arthritis, supraventricular tachycardia. Patient was recently discharged [facility] status post right TKA 10/16. according to patient when she returned home she became nauseated she is not sure if she was nauseated due to the pain medication Or antibiotics. Patient noted that her appetite had decreased and there were several times that she took her antibiotics and pain medication without meals. Which could possibly be the source of her nausea vomiting. She did note that she did have 1
--- NOTE | 2019-10-21 12:00 | PC.NURSE ---
Up to chair for lunch, denies increase pain
--- NOTE | 2019-10-21 13:45 | PC.NURSE ---
Discharge to home via wheel chair, personal items returned, discharge instructions reviewed with patient, no questions or concerns voiced
== END 2019-10-21 13:45 | disposition home or self-care (01) ==
LOC: CHSED 12:16 → CHS2ND 12:24
PROVIDERS: Nurse Practitioner; Admitting Provider Emergency Medicine; Emergency Provider Emergency Medicine; PCP Internal Medicine; Visit Provider Emergency Medicine
DX: E86.0 Dehydration (principal); N17.9 Acute kidney failure, unspecified; E87.1 Hypo-osmolality and hyponatremia; I48.0 Paroxysmal atrial fibrillation; I10 Essential (primary) hypertension; M06.9 Rheumatoid arthritis, unspecified; K21.9 Gastro-esophageal reflux disease without esophagitis; E78.5 Hyperlipidemia, unspecified; F41.9 Anxiety disorder, unspecified; Z96.651 Presence of right artificial knee joint; Z87.891 Personal history of nicotine dependence
CPT/HCPCS: 36415; 80053; 81001; 82272; 83605; 83880; 84484; 85025; 85027; 87040; 88321; 93005; 96361; 96365; 96375; 97161; 99283; 99285; A9270; G0378; J0696; J1885; J2405; J7030; J7512

== ENCOUNTER 2019-10-25 10:07 | Outpatient (CLI) | payer MEDICARE, SELFPAY ==
[2019-10-25 10:19] LABS: Hematocrit 30.6 % (35.0-42.0); Hemoglobin 9.6 g/dL (11.7-13.8)
[2019-10-25 11:00] LABS: Anion Gap 9.4 mmol/L (7-16); Blood Urea Nitrogen 18 mg/dL (7-18); Calcium 9.5 mg/dL (8.5-10.1); Carbon Dioxide 31 mmol/L (21-32); Chloride 99 mmol/L (98-108); Estimated Glomerular Filt Rate 42; Glucose 83 mg/dL (70-99); Osmolality Calculated 280 mOsm/kg (285-295); Potassium 4.4 mmol/L (3.5-5.1); Sodium 135 mmol/L (136-145)
== END 2019-10-25 10:08 | disposition home or self-care (01) ==
LOC: CHSLAB 10:10
PROVIDERS: Physician Assistant; PCP Internal Medicine; Visit Provider Nurse Practitioner
DX: D64.9 Anemia, unspecified (principal); E87.1 Hypo-osmolality and hyponatremia
CPT/HCPCS: 36415; 80048; 85014; 85018

== ENCOUNTER 2019-10-25 13:46 | Outpatient (RCR) | payer MEDICARE, SELFPAY ==
--- NOTE | 2019-10-25 14:37 | PTOPEVAL ---
Thank you for referring Chasidy Thomas to [facility]. Please review, sign, date and return this plan of care HALINA. I agree with and certify that the following plan of care is medically necessary. Referring Physician Date Admitting Provider: Attending Provider: Arash Oconnor MD Referring Provider: *PT Outpatient Evaluation Start: 10/25/19 13:56 Freq: Status: Active Protocol: Document 10/25/19 14:00 JROBI (Rec: 10/25/19 14:23 [facility] [id number]) Therapy Assessment Status Assessment Status Assessment Status Evaluation Outpatient Past Medical History Neurological History Hx Neurological Disorders No Significant History Cardiovascular History Hx Atrial Fibrillation Yes Hx Hypercholesterolemia Yes Hx Hypertension Yes Hx Other Cardiac Disorders Yes: DR GILL EVERY 6 MONTHS. NEXT APPT 10/10/19 . NUC STRESS 09/2019 Respiratory History Hx Respiratory Disorders No Significant History Gastrointestinal History Hx Gastroesophageal Reflux Disease Yes Genitourinary History Hx Genitourinary Disorders No Significant History Musculoskeletal History Hx Joint Replacement Yes: right knee Hx Rheumatoid Arthritis Yes Hx Other Musculoskeletal Disorders Yes: OA RT KNEE Hematological History Hx Hematological Disorders No Significant History Endocrine History Hx Endocrine Disorders No Significant History HEENT History Hx Tonsillectomy Yes Integumentary History Hx Skin Disorders No Significant History Reproductive History Hx Post Menopausal Yes Psychosocial History Hx Anxiety Yes Pain History History of Any Previous or Ongoing No Significant History Instance of Pain Anesthesia History Hx Anesthesia Reactions No Significant History Evaluation Information Problem Diagnosis s/p R TKA Onset 10/17/19 Subjective Information patient reports she had a R Query Text:As Reported By Patient/ TKA due to arthritis on 10/16/ . she reports she was back in the [facility] after surgery due to dehydration and effects from her medication. she reports she is now ready to come to rehab for the R knee. she reports she is still taking pain meds for the R knee pain. she reports she is using them less frequently. Prior Level of Function Comments Additional Prior Level of Function prior to surgery, no cane/ Comments
== END 2019-12-06 13:15 | disposition home or self-care (01) ==
LOC: CHSPT 13:46
PROVIDERS: PCP Internal Medicine; Visit Provider Orthopaedic Surgery
DX: Z96.651 Presence of right artificial knee joint (principal)
CPT/HCPCS: 36415; 80048; 85014; 85018; 97016; 97110; 97161

== ENCOUNTER 2019-11-01 09:47 | Outpatient (CLI) | payer MEDICARE, SELFPAY ==
[2019-11-01 09:57] LABS: Mean Corpuscular HGB Conc 31.3 g/dL (32.0-36.0); Mean Corpuscular Hemoglobin 31.1 pg (27.0-31.0); Mean Corpuscular Volume 99.4 fL (78.0-102.0); Mean Platelet Volume 9.2 fl (9.2-11.8); Platelet Count Result 332 K/mm3 (150-420); Red Blood Count 3.22 M/mm3 (4.20-5.40); White Blood Count 12.1 K/mm3 (4.8-10.8)
[2019-11-01 10:23] LABS: Band Neutrophils Percent 0 % (0-6); Basophils Absolute Manual 0.12 K/mm3 (0-0.1); Basophils Percent Manual 1 % (0-1); Eosinophils Absolute Manual 0.12 K/mm3 (0.02-0.5); Eosinophils Percent Manual 1 % (1-6); Lymphocytes Absolute Manual 0.84 K/mm3 (1.1-4.5); Lymphocytes Percent Manual 7 % (18-44); Metamyelocytes Percent 3 %; Monocytes Absolute Manual 0.72 K/mm3 (0.1-0.90); Monocytes Percent Manual 6 % (3-9); Neutrophils Absolute Manual 9.68 K/mm3 (1.7-7.2); Neutrophils Percent Manual 80 % (46-73); Total Cells Counted 100
[2019-11-01 10:24] LABS: Myelocytes Percent 2 %; Platelet Estimate Adequate (Adequate)
[2019-11-01 10:38] LABS: Alanine Aminotransferase 21 U/L (14-59); Albumin Level 3.4 g/dL (3.4-5.0); Alkaline Phosphatase 88 U/L (46-116); Anion Gap 13.4 mmol/L (7-16); Aspartate Amino Transferase 21 U/L (15-37); Bilirubin,Total 0.6 mg/dL (0.00-1.00); Blood Urea Nitrogen 21 mg/dL (7-18); Calcium 9.7 mg/dL (8.5-10.1); Carbon Dioxide 28 mmol/L (21-32); Chloride 102 mmol/L (98-108); Estimated Glomerular Filt Rate 31; Glucose 96 mg/dL (70-99); Osmolality Calculated 291 mOsm/kg (285-295); Potassium 4.4 mmol/L (3.5-5.1); Sodium 139 mmol/L (136-145); Total Protein 6.1 g/dL (6.4-8.2)
== END 2019-11-01 09:48 | disposition home or self-care (01) ==
LOC: CHSLAB 09:49
PROVIDERS: PCP Internal Medicine; Visit Provider Internal Medicine
DX: E87.1 Hypo-osmolality and hyponatremia (principal); R79.89 Other specified abnormal findings of blood chemistry
CPT/HCPCS: 36415; 80053; 85025

== ENCOUNTER 2019-12-07 11:34 | Outpatient (CLI) | payer MEDICARE, SELFPAY ==
[2019-12-07 11:49] LABS: Add Urine Microscopic? NO; Appearance Urine Clear (Clear); Bilirubin Urine Negative (Negative); Blood Urine Negative (Negative); Color Urine Yellow (Yellow); Glucose Urine UA Negative (Negative); Ketones Urine Negative (Negative); Leukocyte Esterase Ur Negative (Negative); Nitrate Urine Negative (Negative); Protein Urine Negative (Negative); Specific Grav Ur <= 1.005 (1.010-1.020); Urobilinogen Urine 0.2 mg/dL (0.2-1.0); pH Urine 6.5 (5.0-8.0)
[2019-12-07 11:59] LABS: Creatinine Urine 14.72 mg/dL (40-278); Total Protein Urine Random < 7.0 mg/dL (0.0-11.9)
[2019-12-07 12:48] LABS: Erythrocyte Sedimentation Rate 23 mm/hr (0-20)
[2019-12-07 13:00] LABS: Albumin Level 3.8 g/dL (3.4-5.0); Anion Gap 9 mmol/L (8-16); Blood Urea Nitrogen 23 mg/dL (7-18); Calcium 9.3 mg/dL (8.5-10.1); Carbon Dioxide 27 mmol/L (21-32); Chloride 100 mmol/L (98-108); Estimated Glomerular Filt Rate 31; Glucose 71 mg/dL (70-99); Osmolality Calculated 283 mOsm/kg (285-295); Phosphorus 3.7 mg/dL (2.6-4.7); Potassium 4.7 mmol/L (3.5-5.1); Sodium 136 mmol/L (136-145)
[2019-12-09 13:11] LABS: Complement Total CH50 >60 U/mL (31-60)
[2019-12-10 22:45] LABS: Kappa\\Lambda Light Chains 1.22 (0.26-1.65); Lambda Light Chain 13.4 mg/L (5.7-26.3)
[2019-12-11 22:28] LABS: Complement C3 147 mg/dL (83-193)
== END 2019-12-07 11:35 | disposition home or self-care (01) ==
LOC: CHSLAB 11:35
PROVIDERS: PCP Internal Medicine; Visit Provider Internal Medicine Nephrology
DX: N18.3 Chronic kidney disease, stage 3 (moderate) (principal)
CPT/HCPCS: 36415; 80069; 81003; 82570; 83883; 84156; 85652; 86038; 86160; 86162; 86334; 86335

== ENCOUNTER 2019-12-14 13:31 | Outpatient (CLI) | payer MEDICARE, SELFPAY ==
[2019-12-14 13:50] LABS: Basophils Absolute Auto 0.07 K/mm3 (0.00-0.10); Basophils Percent Auto 0.6 % (0.0-1.0); Eosinophils Absolute Auto 0.04 K/mm3 (0.02-0.50); Eosinophils Percent Auto 0.3 % (1.0-6.0); Hematocrit 34.4 % (35.0-42.0); Hemoglobin 10.9 g/dL (11.7-13.8); Immature Granulocyte Absolute 0.23 K/mm3 (0.00-0.00); Immature Granulocyte Percent A 1.9 % (0.0-0.0); Lymphocytes Absolute Auto 1.32 K/mm3 (1.10-4.50); Lymphocytes Percent Auto 10.6 % (18.0-42.0); Mean Corpuscular HGB Conc 31.7 g/dL (32.0-36.0); Mean Corpuscular Volume 97.7 fL (78.0-102.0); Mean Platelet Volume 10.3 fl (9.2-11.8); Monocytes Absolute Auto 0.71 K/mm3 (0.10-0.90); Monocytes Percent Auto 5.7 % (2.0-11.0); Neutrophils Absolute Auto 10.1 K/mm3 (1.7-7.2); Neutrophils Percent Auto 80.9 % (50.0-70.0); Platelet Count Result 252 K/mm3 (150-420); Red Blood Count 3.52 M/mm3 (4.20-5.40); Red Cell Distribution Width 13.7 % (11.6-14.4); White Blood Count 12.4 K/mm3 (4.8-10.8)
[2019-12-14 14:57] LABS: Alanine Aminotransferase 28 U/L (14-59); Albumin Level 3.6 g/dL (3.4-5.0); Alkaline Phosphatase 73 U/L (46-116); Anion Gap 7 mmol/L (8-16); Aspartate Amino Transferase 24 U/L (15-37); Bilirubin,Total 0.4 mg/dL (0.00-1.00); Blood Urea Nitrogen 23 mg/dL (7-18); Calcium 9.1 mg/dL (8.5-10.1); Carbon Dioxide 28 mmol/L (21-32); Chloride 103 mmol/L (98-108); Creatine Kinase 30 U/L (26-192); Estimated Glomerular Filt Rate 27; Glucose 90 mg/dL (70-99); Osmolality Calculated 289 mOsm/kg (285-295); Potassium 4.8 mmol/L (3.5-5.1); Rheumatoid Factor Screen Negative (Negative); Sodium 138 mmol/L (136-145); Total Protein 6.6 g/dL (6.4-8.2)
== END 2019-12-14 13:32 | disposition home or self-care (01) ==
LOC: CHSLAB 13:34
PROVIDERS: PCP Internal Medicine
DX: M05.79 Rheumatoid arthritis with rheumatoid factor of multiple sites without organ or systems involvement (principal); M06.4 Inflammatory polyarthropathy; M77.9 Enthesopathy, unspecified; M79.10 Myalgia, unspecified site; Z51.81 Encounter for therapeutic drug level monitoring
CPT/HCPCS: 36415; 80053; 82550; 85025; 86430

== ENCOUNTER 2020-03-08 10:05 | Outpatient (CLI) | payer MEDICARE, SELFPAY ==
[2020-03-08 10:19] LABS: Basophils Absolute Auto 0.06 K/mm3 (0.00-0.10); Basophils Percent Auto 0.6 % (0.0-1.0); Eosinophils Absolute Auto 0.11 K/mm3 (0.02-0.50); Hematocrit 36.2 % (35.0-42.0); Hemoglobin 11.2 g/dL (11.7-13.8); Immature Granulocyte Percent A 1.9 % (0.0-0.0); Lymphocytes Absolute Auto 1.26 K/mm3 (1.10-4.50); Mean Corpuscular HGB Conc 30.9 g/dL (32.0-36.0); Mean Corpuscular Hemoglobin 28.4 pg (27.0-31.0); Mean Corpuscular Volume 91.9 fL (78.0-102.0); Monocytes Absolute Auto 0.55 K/mm3 (0.10-0.90); Monocytes Percent Auto 5.2 % (2.0-11.0); Neutrophils Absolute Auto 8.4 K/mm3 (1.7-7.2); Neutrophils Percent Auto 79.3 % (50.0-70.0); Platelet Count Result 239 K/mm3 (150-420); Red Blood Count 3.94 M/mm3 (4.20-5.40); Red Cell Distribution Width 13.7 % (11.6-14.4); White Blood Count 10.5 K/mm3 (4.8-10.8)
[2020-03-08 10:38] LABS: Total Protein Urine Random < 6.0 mg/dL (0.0-11.9)
[2020-03-08 12:04] LABS: Albumin Level 3.8 g/dL (3.4-5.0); Anion Gap 10 mmol/L (8-16); Blood Urea Nitrogen 22 mg/dL (7-18); Calcium 9.8 mg/dL (8.5-10.1); Carbon Dioxide 27 mmol/L (21-32); Chloride 100 mmol/L (98-108); Estimated Glomerular Filt Rate 31; Glucose 86 mg/dL (70-99); Osmolality Calculated 286 mOsm/kg (285-295); Phosphorus 3.6 mg/dL (2.6-4.7); Potassium 3.6 mmol/L (3.5-5.1); Sodium 137 mmol/L (136-145)
[2020-03-12 11:49] LABS: Parathyroid Intact 72 pg/mL (14-64)
[2020-03-13 12:04] LABS: Vitamin D 25 Hydroxy 27 ng/mL (30-100)
== END 2020-03-08 10:06 | disposition home or self-care (01) ==
LOC: CHSLAB 10:06
PROVIDERS: PCP Internal Medicine; Visit Provider Internal Medicine Nephrology
DX: I12.9 Hypertensive chronic kidney disease with stage 1 through stage 4 chronic kidney disease, or unspecified chronic kidney disease (principal); N18.30 Chronic kidney disease, stage 3 unspecified
CPT/HCPCS: 36415; 80069; 82306; 82570; 83970; 84156; 85025

== ENCOUNTER 2020-04-03 12:54 | Outpatient (CLI) | payer MEDICARE, SELFPAY ==
--- NOTE | ~2020-04-03 | US_ITS ---
EXAMINATION: US retroperitoneal comp DATE: 04/03/2020 13:27 INDICATION: Stage III chronic kidney disease TECHNIQUE: Multiple ultrasound grayscale images of the kidneys were obtained. COMPARISON: None. FINDINGS: The right kidney measures 10.1 x 4.2 x 4.1 cm. The left kidney measures 9.4 x 4.4 x 4.6 cm. Diffuse m ild increased renal cortical echogenicity of both kidneys consistent with medical renal disease. Ther e is no right hydronephrosis. There is a hypoechoic region at the left renal hilum without internal v ascular flow on color Doppler, unclear whether soft tissue density or more likely the mildly dilated left renal pelvis. No stones identified. The bladder is normal. IMPRESSION: 1. Bilateral increased renal cortical echogenicity consistent with medical renal disease. 2. Hypoechoic region in the left renal pelvis which could represent either a solid mass or more likel y dilated renal pelvis but with greater than typical echogenicity. Correlate with urinalysis and woul d consider further evaluation with pre and postcontrast CT. Reviewed, dictated and finalized at location A. [employer] IMPRESSION: 1. Bilateral increased renal cortical echogenicity consistent with medical coral al disease. 2. Hypoechoic region in the left renal pelvis which could represent either a so lid mass or more likely dilated renal pelvis but with greater than typical echo genicity. Correlate with urinalysis and would consider further evaluation with pre and postcontrast CT.
== END 2020-04-03 12:55 | disposition home or self-care (01) ==
PROVIDERS: PCP Internal Medicine; Visit Provider Internal Medicine Nephrology
DX: N18.32 Chronic kidney disease, stage 3b (principal)
CPT/HCPCS: 76770

== ENCOUNTER 2020-04-29 07:19 | Emergency (ER) | payer MEDICARE, SELFPAY ==
--- NOTE | ~2020-04-29 | XR_ITS ---
EXAMINATION: XR tibia fibula RT 2V DATE: 04/29/2020 08:21 INDICATION: Skin laceration to the right lower leg TECHNIQUE: AP and lateral views of the right tibia and fibula were obtained. COMPARISON: Right knee radiographs dated 10/17/2019 FINDINGS: There is some bandaging material about the mid to distal right lower leg. Partially visualized right total knee arthroplasty which remains in near-anatomic alignment with no periprosthetic lucency to campa ggest loosening or infection. No fracture. Normal alignment and joint space at the right ankle and vi sualized hindfoot. IMPRESSION: 1. No acute osseous abnormality. Reviewed, dictated and finalized at location A. [employer]IC
[2020-04-29 07:30] VITALS: BP 159/84; PULSE 88; RESP 16; TEMP 36.6; O2SAT 100
--- NOTE | 2020-04-29 08:12 | ED.WOUNDLAC ---
HPI - Wound/Laceration General Chief Complaint: Wound/Laceration Stated Complaint: 74 YO female w/ right leg superficial laceration after she fell off a chair last night. Patient is on xarelto for a fib. Here because wound is oozing blood. Related Data Home Medications Medication Instructions Recorded Confirmed alprazolam 0.5 mg PO HS 10/06/19 04/29/20 ascorbic acid (vitamin C) 500 mg PO DAILY 10/06/19 04/29/20 atorvastatin 20 mg PO DAILY 10/06/19 04/29/20 calcium citrate-vitamin D3 1 tablet PO DAILY 10/06/19 04/29/20 [Citracal Regular] carvedilol 3.125 mg PO BID 10/06/19 04/29/20 lysine 500 mg PO DAILY 10/06/19 04/29/20 magnesium oxide 400 mg PO BID 10/06/19 04/29/20 omeprazole 40 mg PO DAILY 10/06/19 04/29/20 prednisone 5 mg PO EVERY OTHER DAY 10/06/19 04/29/20 prednisone 10 mg PO EVERY OTHER DAY 10/06/19 04/29/20 vitamin B complex [B 1 tablet PO QPM 10/06/19 04/29/20 Complex-Vitamin B12] hydrochlorothiazide 25 mg PO DAILY 04/29/20 04/29/20 leflunomide 10 mg PO DAILY 04/29/20 04/29/20 rivaroxaban [Xarelto] 15 mg PO DAILY 04/29/20 04/29/20 Allergies Allergy/AdvReac Type Severity Reaction Status Date / Time Sulfa (Sulfonamide Allergy Unknown Nausea Verified 10/17/19 06:13 Antibiotics) oxycodone Allergy Unknown Verified 04/29/20 07:33 Review of Systems Review of Systems: All systems reviewed & are unremarkable except as noted in HPI and below Constitutional: Constitutional: Reports no additional constitutional complaints Cardiovascular: Cardiovascular: Reports no additional cardiovascular complaints Respiratory: Respiratory: Reports no additional respiratory complaints Gastrointestinal: Gastrointestinal: Reports no additional gastrointestinal complaints Musculoskeletal: Musculoskeletal: Reports no additional musculoskeletal complaints Integumentary/Breasts: Skin/Breast: Reports bleeding lesions (Right Leg superficial skin tear w/ blood oozing from lesion. Length 4 cm) Neurologic: Reports system reviewed and no additional complaints, except as documented Psychiatric: Psychiatric: Reports no additional psychiatric complaints Endocrine: Endocrine: Reports no additional endocrine complaints Hematologic/Lymphatic: Hematologic/Lymphatic: Reports easy bruising Allergic/Immunologic: Allergic/Immunologic: Reports no additional allergic/immunologic complaints [facility] Past Medical History Medical History (Updated 04/29/20 @ 08:26 by Jose Shabazz MD) Anxiety Atrial fibrillation Paroxysmal GERD (gastroesophageal reflux disease) H/O supraventricular tachycardia Hyperlipidemia Hypertension Rheumatoid arthritis Surgical History Surgical History H/O cataract extraction H/O dilation and curettage A couple times History of tonsillectomy History of tubal ligation Family History Family History Father Carcinoma of colon Mother Family history of congestive heart failure Other Family history of malignant neoplasm Hypertension Social History Social History Social History: 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 She is and lives with her . She desires ever is a durable power regulatory attorney for healthcare. Patient desires to be a full code. She has 3 children. She is to smoke but quit when she is around 59 years old. No alcohol marijuana or illicit drugs. Smoking status: Former smoker Tobacco type: cigarettes Second hand tobacco smoke exposure: No Smoking end date: 04/27/93 Alcohol intake: current Drinks per week: 3 Substance use: never Gender identity (if verbalized by the patient): Female Spiritual care concerns: No Exam Const: General: cooperative, healthy appearing, comfortable, no acute distress, alert, awake and Physically active
== END 2020-04-29 08:44 | disposition home or self-care (01) ==
PROVIDERS: Emergency Provider Family Medicine; PCP Internal Medicine
DX: S81.811A Laceration without foreign body, right lower leg, initial encounter (principal); Z79.01 Long term (current) use of anticoagulants; W07.XXXA Fall from chair, initial encounter
CPT/HCPCS: 73590; 99283

== ENCOUNTER 2020-05-16 09:13 | Outpatient (CLI) | payer MEDICARE, SELFPAY ==
[2020-05-16 10:09] LABS: Alanine Aminotransferase 27 U/L (14-59); Albumin Level 3.8 g/dL (3.4-5.0); Alkaline Phosphatase 56 U/L (46-116); Anion Gap 11 mmol/L (8-16); Aspartate Amino Transferase 20 U/L (15-37); Bilirubin,Total 0.4 mg/dL (0.00-1.00); Blood Urea Nitrogen 30 mg/dL (7-18); Calcium 9.5 mg/dL (8.5-10.1); Carbon Dioxide 26 mmol/L (21-32); Chloride 102 mmol/L (98-108); Estimated Glomerular Filt Rate 25; Glucose 89 mg/dL (70-99); Osmolality Calculated 293 mOsm/kg (285-295); Phosphorus 3.2 mg/dL (2.6-4.7); Sodium 139 mmol/L (136-145); Total Protein 6.6 g/dL (6.4-8.2)
[2020-05-16 12:25] LABS: Basophils Absolute Auto 0.07 K/mm3 (0.00-0.10); Basophils Percent Auto 0.7 % (0.0-1.0); Eosinophils Absolute Auto 0.15 K/mm3 (0.02-0.50); Eosinophils Percent Auto 1.4 % (1.0-6.0); Immature Granulocyte Absolute 0.14 K/mm3 (0.00-0.00); Immature Granulocyte Percent A 1.3 % (0.0-0.0); Lymphocytes Percent Auto 24.8 % (18.0-42.0); Mean Corpuscular Volume 90.1 fL (78.0-102.0); Monocytes Absolute Auto 0.88 K/mm3 (0.10-0.90); Monocytes Percent Auto 8.4 % (2.0-11.0); Neutrophils Absolute Auto 6.6 K/mm3 (1.7-7.2); Neutrophils Percent Auto 63.4 % (50.0-70.0); Platelet Count Result 309 K/mm3 (150-420); Red Blood Count 3.22 M/mm3 (4.20-5.40); Red Cell Distribution Width 15.1 % (11.6-14.4); White Blood Count 10.5 K/mm3 (4.8-10.8)
== END 2020-05-16 09:14 | disposition home or self-care (01) ==
PROVIDERS: PCP Internal Medicine; Visit Provider Internal Medicine Nephrology
DX: R42 Dizziness and giddiness (principal); N18.30 Chronic kidney disease, stage 3 unspecified
CPT/HCPCS: 36415; 80053; 84100; 85025

== ENCOUNTER 2020-05-31 09:20 | Outpatient (CLI) | payer MEDICARE, SELFPAY ==
[2020-05-31 09:44] LABS: Hemoglobin 8.8 g/dL (11.7-13.8); Mean Corpuscular HGB Conc 31.4 g/dL (32.0-36.0); Mean Corpuscular Hemoglobin 27.7 pg (27.0-31.0); Mean Corpuscular Volume 88.1 fL (78.0-102.0); Mean Platelet Volume 10.2 fl (9.2-11.8); Platelet Count Result 286 K/mm3 (150-420); Red Blood Count 3.18 M/mm3 (4.20-5.40); Red Cell Distribution Width 14.5 % (11.6-14.4); White Blood Count 9.8 K/mm3 (4.8-10.8)
[2020-05-31 10:09] LABS: BNP 73.9 pg/mL (0-100)
[2020-05-31 10:25] LABS: Alanine Aminotransferase 38 U/L (14-59); Albumin Level 3.6 g/dL (3.4-5.0); Alkaline Phosphatase 115 U/L (46-116); Anion Gap 14 mmol/L (8-16); Aspartate Amino Transferase 30 U/L (15-37); Bilirubin,Total 0.4 mg/dL (0.00-1.00); Blood Urea Nitrogen 35 mg/dL (7-18); Calcium 9.3 mg/dL (8.5-10.1); Carbon Dioxide 25 mmol/L (21-32); Chloride 99 mmol/L (98-108); Estimated Glomerular Filt Rate 23; Ferritin 54 ng/mL (8-252); Glucose 102 mg/dL (70-99); Iron 26 ug/dL (50-170); Osmolality Calculated 294 mOsm/kg (285-295); Percent Iron Saturation 7 % (12-57); Potassium 3.8 mmol/L (3.5-5.1); Sodium 138 mmol/L (136-145); Total Protein 6.6 g/dL (6.4-8.2)
[2020-05-31 10:31] LABS: Band Neutrophils Percent 0 % (0-6); Lymphocytes Absolute Manual 2.94 K/mm3 (1.1-4.5); Lymphocytes Percent Manual 30 % (18-44); Neutrophils Absolute Manual 5.58 K/mm3 (1.7-7.2); Neutrophils Percent Manual 57 % (46-73); Total Cells Counted 100
[2020-05-31 10:32] LABS: Basophils Percent Manual 0 % (0-1); Eosinophils Absolute Manual 0.39 K/mm3 (0.02-0.5); Eosinophils Percent Manual 4 % (1-6); Monocytes Absolute Manual 0.78 K/mm3 (0.1-0.90); Monocytes Percent Manual 8 % (3-9); Myelocytes Percent 1 %; Platelet Estimate Adequate (Adequate)
[2020-05-31 10:57] LABS: Add Urine Microscopic? NO; Appearance Urine Clear (Clear); Bilirubin Urine Negative (Negative); Blood Urine Negative (Negative); Color Urine Yellow (Yellow); Glucose Urine UA Negative (Negative); Ketones Urine Negative (Negative); Leukocyte Esterase Ur Negative (Negative); Nitrate Urine Negative (Negative); Protein Urine Negative (Negative); Urobilinogen Urine 0.2 mg/dL (0.2-1.0); pH Urine 6.5 (5.0-8.0)
[2020-05-31 11:26] LABS: Erythrocyte Sedimentation Rate 56 mm/hr (0-20)
[2020-05-31 11:36] LABS: Creatine Kinase 44 U/L (26-192)
[2020-06-04 09:18] LABS: Methylmalonic Acid 156 nmol/L (87-318)
[2020-06-04 20:32] LABS: Erythropoietin (EPO) 17.4 mIU/mL (2.6-18.5)
[2020-06-05 06:38] LABS: Red Blood Cell Folate >1000 ng/mL RBC (>280)
== END 2020-05-31 09:21 | disposition home or self-care (01) ==
LOC: CHSLAB 09:21
PROVIDERS: PCP Internal Medicine; Visit Provider Internal Medicine
DX: D64.9 Anemia, unspecified (principal); I50.9 Heart failure, unspecified; N18.30 Chronic kidney disease, stage 3 unspecified
CPT/HCPCS: 36415; 80053; 81003; 82550; 82668; 82728; 82747; 83540; 83550; 83880; 83921; 85025; 85652

== ENCOUNTER 2020-06-25 15:17 | Outpatient (CLI) | payer MEDICARE, SELFPAY ==
[2020-06-25 15:37] LABS: Basophils Absolute Auto 0.08 K/mm3 (0.00-0.10); Basophils Percent Auto 0.7 % (0.0-1.0); Eosinophils Absolute Auto 0.04 K/mm3 (0.02-0.50); Eosinophils Percent Auto 0.4 % (1.0-6.0); Hematocrit 30.5 % (35.0-42.0); Hemoglobin 9.3 g/dL (11.7-13.8); Immature Granulocyte Absolute 0.25 K/mm3 (0.00-0.00); Immature Granulocyte Percent A 2.2 % (0.0-0.0); Immature Reticulocyte Fraction 21.1 % (2.0-16.52); Lymphocytes Absolute Auto 1.49 K/mm3 (1.10-4.50); Lymphocytes Percent Auto 13.3 % (18.0-42.0); Mean Corpuscular HGB Conc 30.5 g/dL (32.0-36.0); Mean Corpuscular Hemoglobin 26.6 pg (27.0-31.0); Mean Corpuscular Volume 87.1 fL (78.0-102.0); Mean Platelet Volume 10.9 fl (9.2-11.8); Monocytes Absolute Auto 0.59 K/mm3 (0.10-0.90); Monocytes Percent Auto 5.3 % (2.0-11.0); Neutrophils Absolute Auto 8.8 K/mm3 (1.7-7.2); Neutrophils Percent Auto 78.1 % (50.0-70.0); Platelet Count Result 275 K/mm3 (150-420); Red Cell Distribution Width 14.8 % (11.6-14.4); Reticulocyte Percent 2.12 % (0.50-1.50); Reticulocytes Absolute 0.07 M/mm3 (0.02-0.1); White Blood Count 11.2 K/mm3 (4.8-10.8)
[2020-06-25 16:32] LABS: Alanine Aminotransferase 31 U/L (14-59); Alkaline Phosphatase 67 U/L (46-116); Anion Gap 11 mmol/L (8-16); Aspartate Amino Transferase 22 U/L (15-37); Bilirubin,Total 0.4 mg/dL (0.00-1.00); Blood Urea Nitrogen 33 mg/dL (7-18); Calcium 9.3 mg/dL (8.5-10.1); Carbon Dioxide 26 mmol/L (21-32); Chloride 101 mmol/L (98-108); Estimated Glomerular Filt Rate 26; Ferritin 28 ng/mL (8-252); Glucose 98 mg/dL (70-99); Iron 30 ug/dL (50-170); Lactate Dehydrogenase 181 U/L (81-234); Osmolality Calculated 293 mOsm/kg (285-295); Percent Iron Saturation 7 % (12-57); Potassium 4.5 mmol/L (3.5-5.1); Sodium 138 mmol/L (136-145); Total Protein 6.8 g/dL (6.4-8.2); Vitamin B12 762 pg/mL (193-986)
[2020-06-25 16:37] LABS: Folic Acid > 20.0 ng/mL (8.6->20)
[2020-06-28 21:41] LABS: Albumin 4.2 g/dL (3.8-4.8); Alpha 1 Globulin 0.3 g/dL (0.2-0.3); Alpha 2 Globulin 0.8 g/dL (0.5-0.9); Beta 1 Globulin 0.6 g/dL (0.4-0.6); Gamma Globulin 0.5 g/dL (0.8-1.7); Interpretation Consistent with; Protein, Total 6.6 g/dL (6.1-8.1)
[2020-06-30 11:32] LABS: Methylmalonic Acid 160 nmol/L (87-318)
== END 2020-06-25 15:18 | disposition home or self-care (01) ==
LOC: CHSLAB 15:19
PROVIDERS: PCP Internal Medicine; Visit Provider Internal Medicine Hematology & Oncology
DX: D64.9 Anemia, unspecified (principal)
CPT/HCPCS: 36415; 80053; 82607; 82728; 82746; 83540; 83550; 83615; 83921; 84155; 84165; 85025; 85046; 85055

== ENCOUNTER → 2020-07-02 00:34 | Outpatient (CLI) | payer MEDICARE, SELFPAY ==
[2020-07-02 18:03] LABS: SARS-CoV-2 RNA PCR Negative
== END ==
PROVIDERS: Visit Provider Urology
DX: Z01.812 Encounter for preprocedural laboratory examination (principal); Z20.822 Contact with and (suspected) exposure to COVID-19
CPT/HCPCS: C9803; U0003; U0005

== ENCOUNTER 2020-07-05 01:17 | Day surgery (SDC) | payer MEDICARE, SELFPAY ==
[2020-06-26 13:13] VITALS: BMI 22.2
--- NOTE | ~2020-07-05 | XR_ITS ---
EXAMINATION: XR retrograde pyelogram LT EXAM DATE: 07/05/2020 15:20 INDICATION: Left-sided retrograde pyelogram. TECHNIQUE: Fluoroscopy used during XR retrograde pyelogram LT performed by Dr. Anderson Gregg MD . The DAP for this procedure was 717 radcm2. Cine run(s) available for review. FINDINGS: The left ureter was cannulated and injected. Mildly prominent calyces. Correlate with pr ocedure note. IMPRESSION: Fluoroscopy used during XR retrograde pyelogram LT. Reviewed, dictated and finalized at location B. [employer]ENT
--- NOTE | 2020-07-05 11:39 | WPDHPUPDATE1 ---
History and Physical Update Update Date/Time: 07/05/20 11:39 History and Physical has been reviewed, including an updated exam of the patient. There are NO changes in the patient's condition. Risks, benefits, and alternatives have been discussed and questions answered. Patient agrees to proceed with procedure.
[2020-07-05] MEDS: LACTATED RINGERS 1,000 ML 30 ML IV CONT (14:09)
[2020-07-05 14:11] VITALS: BP 157/81; PULSE 100; RESP 16; TEMP 36.9; O2SAT 100
--- NOTE | 2020-07-05 14:40 | WPDANESEPPF ---
Anes - Initial Pre Proc Eval Procedure: Operation Date: 07/05/20 14:45 Proposed Procedures p Cystoscopy, Left Retrograde Pyelogram, Left Ureteroscopy - Anderson Gregg MD Date/Time: 07/05/20 14:40 Surgeon: Anderson Gregg MD Pre Op Diagnosis: Left Renal Mass Patient Data Age: 74 Gender: F Height: 5 ft 8 in Weight: 64.65 kg Last Vital Signs Temp 98.5 F 07/05/20 14:11 Pulse 100 07/05/20 14:11 Resp 16 07/05/20 14:11 BP 157/81 H 07/05/20 14:11 Pulse Ox 100 07/05/20 14:11 Allergies Allergy/AdvReac Type Severity Reaction Status Date / Time Sulfa (Sulfonamide Allergy Unknown Nausea Verified 07/05/20 13:47 Antibiotics) oxycodone Allergy Nausea and Verified 07/05/20 13:47 Vomiting Home Medications Medication Instructions Recorded Confirmed Type alprazolam 0.5 mg PO HS 10/06/19 07/05/20 History ascorbic acid (vitamin C) 500 mg PO DAILY 10/06/19 07/05/20 History atorvastatin 20 mg PO QAM 10/06/19 07/05/20 History calcium citrate-vitamin D3 1 tablet PO DAILY 10/06/19 07/05/20 History [Citracal Regular] magnesium oxide 400 mg PO BID 10/06/19 07/05/20 History omeprazole 40 mg PO DAILY 10/06/19 07/05/20 History prednisone 5 mg PO EVERY OTHER DAY 10/06/19 07/05/20 History prednisone 10 mg PO EVERY OTHER DAY 10/06/19 07/05/20 History losartan 25 mg PO DAILY #30 tablet 10/18/19 07/05/20 Rx hydrochlorothiazide 25 mg PO DAILY 04/29/20 07/05/20 History leflunomide 10 mg PO DAILY 04/29/20 07/05/20 History rivaroxaban [Xarelto] 15 mg PO DAILY 04/29/20 07/04/20 History acetaminophen 1,000 mg PO Q6H 06/26/20 07/05/20 History metoprolol succinate 12.5 mg PO QAM 06/26/20 07/05/20 History spironolactone 25 mg PO DAILY 06/26/20 07/05/20 History Patient hx anesthesia problems: none Family hx anesthesia problems: none [facility] Past Medical History Medical History (Updated 06/26/20 @ 17:05 by Rodolfo Hernandez MD) Anxiety Atrial fibrillation Paroxysmal GERD (gastroesophageal reflux disease) H/O supraventricular tachycardia Hyperlipidemia Hypertension Rheumatoid arthritis Surgical History Surgical History H/O cataract extraction H/O dilation and curettage A couple times History of tonsillectomy History of tubal ligation Family History Family History Father Carcinoma of colon Mother Family history of congestive heart failure Other Family history of malignant neoplasm Hypertension Social History Social History Social History: 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 She is and lives with her . She desires ever is a durable power hands and dial inspector for healthcare. Patient desires to be a full code. She has 3 children. She is to smoke but quit when she is around 59 years old. No alcohol marijuana or illicit drugs. Smoking status: Never smoker Tobacco type: cigarettes Second hand tobacco smoke exposure: No Smoking end date: 04/27/93 Additional smoking assessment comments: STATES 1PK/DAY/30YRS QUIT 1993 Alcohol intake: current Drinks per week: 3 Substance use: never Substance use type: does not use Living arrangements: with family Gender identity (if verbalized by the patient): Female Spiritual care concerns: No Anes - Eval Final PreProcedure Day of Procedure 07/05/20 14:40 Patient weight: normal Heart: irregular rhythm Lungs: clear to auscultation Airway: Mallampati scale class II Neurological: alert and oriented Last oral intake: >/= 8 hours ASA classification: III Emergent: no Anesthetic plan: proceed Anesthesia type and monitoring: general LMA and standard monitoring Informed Consent: The patient's anesthetic plan and its attendant risks and benefits were discussed with the patient/family/POA. Questions were solicite
[2020-07-05] MEDS: ceFAZolin 2 GM/D5W 50 ML 2 GM/50 ML BAG IVPB (14:51)
[2020-07-05] MEDS: LIDOCAINE HCL 2% GEL UROJET 10 ML PKG MUCOUS MEM (15:01)
--- NOTE | 2020-07-05 15:20 | PM.PROC ---
Procedure Note - Detailed Date of procedure: 07/05/20 Pre-op diagnosis: Left Renal Mass Post-op diagnosis: other (Normal left collecting system/ureter/bladder) Procedure performed: 1. Cysto., left RPG 2. Left ureteroscopy Implants: Patient is brought to the operative suite where she was prepped and draped in routine sterile fashion while in a dorsal lithotomy position. 2% xylocaine jelly was introduced into referred systemic sedation is administered per the anesthesia department. Cystoscopy is undertaken with a 19 F rigid cystoscope. Urine was collected for cytology. The bladder was carefully inspected. Bladder mucosa without hyperemia. There is no intravesical foreign body or neoplasm. She has a single orthotopic ureteral orifices with clear efflux bilaterally. 0.035 in glidewire was advanced in left renal pelvis. Angiographic catheter was placed over that and used to obtain retrograde pyelograms. Retrograde pyelogram appeared normal without filling defect or points of obstruction. Then dilated the distal ureter with an 8 F 10 F dilator and did digital ureteroscopy with a 7.5 F scope. All calices and renal pelvis were carefully inspected and found to be without any signs of mucosal abnormalities. There is no mucosal hyperemia and no neoplastic masses or stones of any type. Ureter was carefully inspected while withdrawing the scope and likewise, found to be endoscopically normal. Anesthesia: MAC Surgeon: Anderson Gregg MD Estimated blood loss (mL): 0 Drains: No Packing: No Pathology: yes (Urine cytology) Complications: No immediate complications Condition: stable Disposition: PACU
[2020-07-05 15:22] VITALS: BP 153/78; PULSE 84; RESP 14; O2SAT 97
[2020-07-05 15:50] VITALS: BP 159/84; PULSE 78; RESP 14; O2SAT 98
== END 2020-07-05 16:20 | disposition home or self-care (01) ==
PROVIDERS: PCP Internal Medicine; Visit Provider Urology
PROC: (CPT 52352; principal; 2020-07-05 14:45)
DX: R93.41 Abnormal radiologic findings on diagnostic imaging of renal pelvis, ureter, or bladder (principal); I48.0 Paroxysmal atrial fibrillation; I10 Essential (primary) hypertension; E78.5 Hyperlipidemia, unspecified; K21.9 Gastro-esophageal reflux disease without esophagitis; M06.9 Rheumatoid arthritis, unspecified; F41.9 Anxiety disorder, unspecified; Z79.01 Long term (current) use of anticoagulants; Z87.891 Personal history of nicotine dependence
CPT/HCPCS: 52005; 74420; 88108; A9270; C1769; J0690; J2704; J3010; J7120; Q9966

== ENCOUNTER 2020-08-27 10:43 | Outpatient (CLI) | payer MEDICARE, SELFPAY ==
[2020-08-27 11:00] LABS: Basophils Absolute Auto 0.08 K/mm3 (0.00-0.10); Basophils Percent Auto 0.7 % (0.0-1.0); Eosinophils Absolute Auto 0.11 K/mm3 (0.02-0.50); Hematocrit 40.7 % (35.0-42.0); Hemoglobin 12.9 g/dL (11.7-13.8); Immature Granulocyte Absolute 0.24 K/mm3 (0.00-0.00); Immature Granulocyte Percent A 2.2 % (0.0-0.0); Lymphocytes Absolute Auto 1.37 K/mm3 (1.10-4.50); Lymphocytes Percent Auto 12.3 % (18.0-42.0); Mean Corpuscular HGB Conc 31.7 g/dL (32.0-36.0); Mean Corpuscular Hemoglobin 29.5 pg (27.0-31.0); Mean Corpuscular Volume 92.9 fL (78.0-102.0); Mean Platelet Volume 11.4 fl (9.2-11.8); Monocytes Absolute Auto 0.71 K/mm3 (0.10-0.90); Monocytes Percent Auto 6.4 % (2.0-11.0); Neutrophils Absolute Auto 8.6 K/mm3 (1.7-7.2); Neutrophils Percent Auto 77.4 % (50.0-70.0); Platelet Count Result 211 K/mm3 (150-420); Red Blood Count 4.38 M/mm3 (4.20-5.40); Red Cell Distribution Width 18.5 % (11.6-14.4); White Blood Count 11.1 K/mm3 (4.8-10.8)
[2020-08-27 11:19] LABS: Creatinine Urine 33.82 mg/dL (40-278); Total Protein Urine Random < 6.0 mg/dL (0.0-11.9); Ur Ttl Prot Creatinine Ratio 0.18 mg/mg (0-0.20)
[2020-08-27 11:47] LABS: Albumin Level 3.8 g/dL (3.4-5.0); Anion Gap 8 mmol/L (8-16); Blood Urea Nitrogen 30 mg/dL (7-18); Calcium 9.7 mg/dL (8.5-10.1); Carbon Dioxide 28 mmol/L (21-32); Chloride 101 mmol/L (98-108); Estimated Glomerular Filt Rate 33; Ferritin 98 ng/mL (8-252); Glucose 86 mg/dL (70-99); Iron 131 ug/dL (50-170); Osmolality Calculated 289 mOsm/kg (285-295); Percent Iron Saturation 38 % (12-57); Phosphorus 2.8 mg/dL (2.6-4.7); Potassium 4.1 mmol/L (3.5-5.1); Sodium 137 mmol/L (136-145)
== END 2020-08-27 10:44 | disposition home or self-care (01) ==
PROVIDERS: PCP Internal Medicine; Visit Provider Internal Medicine Hematology & Oncology
DX: N18.32 Chronic kidney disease, stage 3b (principal); D64.9 Anemia, unspecified
CPT/HCPCS: 36415; 80069; 82570; 82728; 83540; 83550; 84156; 85025

== ENCOUNTER 2020-09-28 10:59 | Observation (INO) | payer MEDICARE, SELFPAY ==
--- NOTE | ~2020-09-28 | XR_ITS ---
EXAMINATION: XR chest 2V EXAM DATE: 09/28/2020 12:04 INDICATION: Mid chest pain. TECHNIQUE: Frontal and lateral projections of the chest obtained and reviewed. Comparison is made to prior examination from 10/06/2019. FINDINGS: Small amount of nonspecific airspace disease seen overlying the posterior sulci on the lat eral projection, probably in the right lower lobe. Possible developing pneumonia. The lungs are hyper inflated which can be seen with chronic obstructive pulmonary disease (a clinical diagnosis of functi onal impairment), but is not diagnostic of it. Narrow cardiac silhouette. Biapical scarring. There is no pneumothorax suspected. There are no pleural effusions. IMPRESSION: 1. Small amount of ill-defined right basilar airspace disease, possible developing pneumonia. 2. Severe chronic hyperinflation. Reviewed, dictated and finalized at location B. IMPRESSION: 1. Small amount of ill-defined right basilar airspace disease, possible devel oping pneumonia. 2. Severe chronic hyperinflation.
[2020-09-28 11:00] VITALS: BP 158/105; PULSE 144; PULSE 153; RESP 11; TEMP 36.6; O2SAT 100
--- NOTE | 2020-09-28 11:04 | ECG_ITS ---
Measurements Intervals [place] Rate: 153 P: NC: 0 QRS: 63 QRSD: 81 T: 48 QT: 250 QTc: 399 Interpretive Statements ATRIAL FIBRILLATION WITH RAPID VENTRICULAR RESPONSE BASELINE ARTIFACT- II, III, V6 ABNORMAL ECG Electronically Signed On 09-28-2020 11:22:50 CDT by Markus Ayala D.O.
--- NOTE | 2020-09-28 11:14 | ED.ARRPALP ---
HPI - Arrhythmia/Palpitations General Chief Complaint: Arrhythmia/Palpitations Stated Complaint: chest pain, tachycardia Time Seen by Provider: 09/28/20 11:05 Source: patient Mode of arrival: ambulatory Limitations: no limitations History of Present Illness HPI narrative: 75-year-old woman with a history of atrial fibrillation comes in today complaining of shortness of breath, rapid heart rate, and chest pain since last evening. Patient states that it started abruptly while she was riding in her car. She states the chest pain is intermittent, 4/10 and sharp and also states that it is worse with a deep breath. She states she was diagnosed with atrial fibrillation 2 years ago and has been on Xarelto since. She states that she had a negative stress test at the time of that diagnosis. Has no lightheadedness, recent illness, fever, vomiting, cough or cold symptoms or dysuria. MD complaint: rapid heart beat Onset (ago): hour(s) (12) Duration: constant Severity: moderate Context: occurred during rest Arrhythmia history: atrial fibrillation Associated symptoms: chest pain and shortness of breath Related Data Home Medications Medication Instructions Recorded Confirmed alprazolam 0.5 mg PO HS 10/06/19 09/28/20 ascorbic acid (vitamin C) 500 mg PO DAILY 10/06/19 09/28/20 atorvastatin 20 mg PO QAM 10/06/19 09/28/20 calcium citrate-vitamin D3 1 tablet PO DAILY 10/06/19 09/28/20 [Citracal Regular] magnesium oxide 400 mg PO BID 10/06/19 09/28/20 omeprazole 40 mg PO DAILY 10/06/19 09/28/20 prednisone 5 mg PO EVERY OTHER DAY 10/06/19 09/28/20 prednisone 10 mg PO EVERY OTHER DAY 10/06/19 09/28/20 Xarelto 15 mg PO DAILY 04/29/20 09/28/20 hydrochlorothiazide 25 mg PO DAILY 04/29/20 09/28/20 leflunomide 10 mg PO DAILY 04/29/20 09/28/20 acetaminophen 1,000 mg PO Q6H 06/26/20 09/28/20 metoprolol succinate 12.5 mg PO QAM 06/26/20 09/28/20 spironolactone 25 mg PO DAILY 06/26/20 09/28/20 ferrous sulfate [Iron (ferrous 325 mg PO TID 09/28/20 09/28/20 sulfate)] Allergies Allergy/AdvReac Type Severity Reaction Status Date / Time Sulfa (Sulfonamide Allergy Unknown Nausea Verified 07/18/20 11:16 Antibiotics) oxycodone Allergy Nausea and Verified 07/18/20 11:16 Vomiting Review of Systems Constitutional: Constitutional: Denies chills and Denies fever(s) Eyes: Eyes: Denies change in vision and Denies photophobia ENT: Denies nasal congestion and Denies sore throat Cardiovascular: Cardiovascular: Reports chest pain and Denies radiating jaw, neck or arm pain Respiratory: Respiratory: Denies cough and Denies dyspnea Gastrointestinal: Gastrointestinal: Denies abdominal pain, Denies diarrhea, Denies nausea and Denies vomiting Genitourinary: Genitourinary: Denies nocturia and Denies dysuria Musculoskeletal: Musculoskeletal: Denies back pain, Denies arthralgias and Denies joint swelling Integumentary/Breasts: Skin/Breast: Denies pruritus, Denies erythema and Denies rash Neurologic: Denies vertigo, Denies dizziness and Denies syncope Hematologic/Lymphatic: Hematologic/Lymphatic: Denies easy bleeding and Denies easy bruising Allergic/Immunologic: Allergic/Immunologic: Denies throat swelling and Denies tongue swelling [facility] Past Medical History Medical History (Updated 09/28/20 @ 13:19 by Steven Colvin MD) Anxiety Atrial fibrillation Paroxysmal GERD (gastroesophageal reflux disease) H/O supraventricular tachycardia Hyperlipidemia Hypertension Rheumatoid arthritis Surgical History Surgical History H/O cataract extraction H/O dilation and curettage A couple times History of tonsillectomy History of tubal ligation Family History Family History Father Carcinoma of colon Mother Family history of congestive heart failure Other Family history of malignant neoplasm Hypertension Social History
[2020-09-28 11:20] VITALS: BP 158/105; PULSE 153
[2020-09-28] MEDS: dilTIAZem HCl INJ 25 MG/5 ML VIAL 10 MG IV PUSH (11:20)
[2020-09-28 11:28] LABS: Hematocrit 40.4 % (35.0-42.0); Hemoglobin 13.3 g/dL (11.7-13.8); Mean Corpuscular HGB Conc 32.9 g/dL (32.0-36.0); Mean Corpuscular Hemoglobin 30.5 pg (27.0-31.0); Mean Corpuscular Volume 92.7 fL (78.0-102.0); Mean Platelet Volume 10.7 fl (9.2-11.8); Platelet Count Result 263 K/mm3 (150-420); Red Blood Count 4.36 M/mm3 (4.20-5.40); Red Cell Distribution Width 15.6 % (11.6-14.4)
[2020-09-28 11:49] LABS: Alanine Aminotransferase 25 U/L (14-59); Albumin Level 3.6 g/dL (3.4-5.0); Alkaline Phosphatase 68 U/L (46-116); Anion Gap 9 mmol/L (8-16); Aspartate Amino Transferase 20 U/L (15-37); Bilirubin,Total 0.4 mg/dL (0.00-1.00); Blood Urea Nitrogen 33 mg/dL (7-18); Calcium 9.7 mg/dL (8.5-10.1); Carbon Dioxide 28 mmol/L (21-32); Chloride 100 mmol/L (98-108); Estimated Glomerular Filt Rate 32; Glucose 84 mg/dL (70-99); NT Pro B Type Natriuretic Pept 4216 pg/mL (0-450); Osmolality Calculated 290 mOsm/kg (285-295); Potassium 3.6 mmol/L (3.5-5.1); Sodium 137 mmol/L (136-145); Total Protein 6.6 g/dL (6.4-8.2); Troponin I 14.2 ng/L (0.00-60.4)
[2020-09-28 12:04] LABS: Band Neutrophils Percent 0 % (0-6); Eosinophils Absolute Manual 0.12 K/mm3 (0.02-0.5); Eosinophils Percent Manual 1 % (1-6); Lymphocytes Absolute Manual 1.68 K/mm3 (1.1-4.5); Lymphocytes Percent Manual 14 % (18-44); Monocytes Percent Manual 10 % (3-9); Neutrophils Percent Manual 75 % (46-73); Platelet Estimate Adequate (Adequate); Total Cells Counted 100
[2020-09-28 12:16] LABS: Add Urine Microscopic? NO; Appearance Urine Clear (Clear); Bilirubin Urine Negative (Negative); Blood Urine Negative (Negative); Color Urine Yellow (Yellow); Glucose Urine UA Negative (Negative); Ketones Urine Negative (Negative); Leukocyte Esterase Ur Negative LEU/UL (Negative); Nitrate Urine Negative (Negative); Protein Urine Negative (Negative); Specific Grav Ur <= 1.005 (1.010-1.020); Urobilinogen Urine 0.2 mg/dL (0.2-1.0)
[2020-09-28 12:29] LABS: Thyroid Stimulating Hormone Reflex 3.15 u/IU/mL (0.36-3.74)
--- NOTE | 2020-09-28 12:39 | PC.NURSE ---
9206 DR. GILL OFFICE CONTACTED. AWAITING CALL BACK
--- NOTE | 2020-09-28 12:44 | PC.NURSE ---
1208 PT CONVERTED TO NSR AT 77. ERP MADE AWARE.
--- NOTE | 2020-09-28 13:11 | PC.NURSE ---
THANH BRAR CONTACTED FOR OBS BED PLACEMENT. ROOM 209 PROVIDED. REGISTRATION NOTIFIED.
[2020-09-28 13:15] VITALS: BP 127/69; PULSE 69; RESP 16; O2SAT 100
[2020-09-28 14:00] VITALS: BP 146/85; PULSE 76; RESP 18; TEMP 36.6; O2SAT 96
--- NOTE | 2020-09-28 14:06 | PM.IMHP ---
H&P: HPI History of Present Illness Date/Time: 09/28/20 14:06 Chasidy Thomas is a 75 year old female who comes to the hospital for a C/C of Chest Pain and SOB. Pt is being admitted under Observation to monitor Atrial fibrillation with RVR, SOB, serial troponin, treat for potential pneumonia bilateral bases. Pt states that she had been doing some garden work 3+ days ago. Last night around 2000 hours she noticed that her heart was beating fast and hard but she did not have any CP at that time. Today she was driving in her car and noticed Left lower chest pain at a level of 5/10 which came about with deep breathing and with movement. Pt states this is a sharp and dull pain that does not radiate. As long as she does not take a deep breath of move her pain is 0-1. Pt has a Hx of A fib for which she takes Xarelto and Metoprolol. No recent changes to her medications. Pt denies dizziness, light headed, feeling faint, no N/V, no changes in vision or hearing, no balance issues, no abdominal pain, no cough. Pt has a PMHx of Anxiety, A fib/Flutter, Diarrhea, RA, SVT, HLD, HTN Chief Complaint: Chest Pain, Rapid Heart Beat Review of Systems Constitutional: Constitutional: Reports no additional constitutional complaints, Denies body ache(s), Denies chills, Denies fever(s) and Denies headache(s) Eyes: Eyes: Reports no additional eye complaints ENT: Reports system reviewed and no additional complaints, except as documented Cardiovascular: Cardiovascular: Reports no additional cardiovascular complaints, Reports chest pain (as noted in the HPI) and Reports chest pain at rest (as noted in the HPI) Respiratory: Respiratory: Reports no additional respiratory complaints, Denies dyspnea and Denies dyspnea on exertion Comments: no SOB at this time Gastrointestinal: Gastrointestinal: Reports no additional gastrointestinal complaints, Denies abdominal pain, Denies belching, Denies heartburn, Denies nausea and Denies vomiting Musculoskeletal: Musculoskeletal: Reports no additional musculoskeletal complaints Neurologic: Reports system reviewed and no additional complaints, except as documented, Reports Normal hearing present, Denies vertigo, Denies dizziness, Denies syncope, Denies headache(s), Denies lack of coordination and Denies focal weakness Psychiatric: Psychiatric: Reports no additional psychiatric complaints [facility] Past Medical History Medical History (Updated 09/28/20 @ 14:27 by TIARA Olmstead) Anxiety Atrial fibrillation Paroxysmal Atrial flutter (08/14/17) Blister of toe (02/24/18) Diarrhea (10/22/17) Effusion, right knee GERD (gastroesophageal reflux disease) H/O supraventricular tachycardia Hemarthrosis of right knee Hyperlipidemia Hypertension Primary osteoarthritis of right knee Primary osteoarthritis of right wrist Rheumatoid arthritis Shoulder pain (08/14/17) Wrist pain (03/09/18) Surgical History Surgical History H/O cataract extraction H/O dilation and curettage A couple times History of tonsillectomy History of tubal ligation Family History Family History Father Carcinoma of colon Mother Family history of congestive heart failure Other Family history of malignant neoplasm Hypertension Social History Social History Social History: 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. She is and lives with her . She desires ever is a durable power civil rights attorney for healthcare. Patient desires to be a full code. She has 3 children. She is to smoke but quit when she is around 59 years old. No alcohol marijuana or illicit drugs. Smoking status: Never smoker Tobacco type: cigarettes Second hand tobacco smoke exposure: No Smoking end date: 04/27/93 Additional smoking assessment comments: STATES 1PK/
[2020-09-28] MEDS: ASPIRIN 81 MG CHEWABLE TABLET 324 MG PO (14:59)
[2020-09-28 15:04] VITALS: BMI 22.6
[2020-09-28 16:00] VITALS: BP 119/72; PULSE 70; RESP 18; TEMP 36.9; O2SAT 100
[2020-09-28 16:28] LABS: Troponin I 10.5 ng/L (0.00-60.4)
[2020-09-28] MEDS: MAGNESIUM OXIDE 400 MG TABLET PO (16:37)
[2020-09-28] MEDS: RIVAROXABAN 10 MG TABLET 15 MG PO (16:49)
[2020-09-28 20:00] VITALS: BP 123/66; PULSE 73; PULSE 74; RESP 18; TEMP 36.8; O2SAT 97
[2020-09-28 20:18] LABS: Troponin I 7.8 ng/L (0.00-60.4)
[2020-09-28] MEDS: ALPRAZolam (*CRX) 0.5 MG TABLET PO (21:59)
[2020-09-28] MEDS: CEFDINIR 300 MG CAPSULE PO (21:59)
[2020-09-29] VITALS (8 sets, daily range): BP systolic 93–122; BP diastolic 58–71; PULSE 62–82; RESP 18; TEMP 36.1–36.8; O2SAT 97–98
--- NOTE | 2020-09-29 03:57 | PC.NURSE ---
Pump Assembler started new bag of cardizem at 5mg/hr. HR 68 BP 122/71. Patient NSR. Monitoring per telemetry.
[2020-09-29 05:47] LABS: Hematocrit 37.7 % (35.0-42.0); Mean Corpuscular HGB Conc 31.8 g/dL (32.0-36.0); Mean Corpuscular Hemoglobin 29.7 pg (27.0-31.0); Mean Corpuscular Volume 93.3 fL (78.0-102.0); Mean Platelet Volume 10.9 fl (9.2-11.8); Platelet Count Result 190 K/mm3 (150-420); Red Blood Count 4.04 M/mm3 (4.20-5.40); Red Cell Distribution Width 15.6 % (11.6-14.4)
[2020-09-29 06:13] LABS: Alanine Aminotransferase 25 U/L (14-59); Albumin Level 3.3 g/dL (3.4-5.0); Alkaline Phosphatase 62 U/L (46-116); Anion Gap 8 mmol/L (8-16); Aspartate Amino Transferase 17 U/L (15-37); Bilirubin,Total 0.4 mg/dL (0.00-1.00); Blood Urea Nitrogen 29 mg/dL (7-18); Calcium 9.4 mg/dL (8.5-10.1); Carbon Dioxide 29 mmol/L (21-32); Chloride 102 mmol/L (98-108); Estimated CRCL calculation 29 ml/min; Estimated Glomerular Filt Rate 34; Glucose 82 mg/dL (70-99); Osmolality Calculated 292 mOsm/kg (285-295); Potassium 3.9 mmol/L (3.5-5.1); Sodium 139 mmol/L (136-145); Total Protein 6.1 g/dL (6.4-8.2); Troponin I 6.2 ng/L (0.00-60.4)
[2020-09-29 06:32] LABS: Band Neutrophils Percent 1 % (0-6); Eosinophils Percent Manual 0 % (1-6); Lymphocytes Absolute Manual 2.08 K/mm3 (1.1-4.5); Lymphocytes Percent Manual 26 % (18-44); Monocytes Percent Manual 5 % (3-9); Neutrophils Percent Manual 64 % (46-73); Total Cells Counted 100
[2020-09-29 06:33] LABS: Basophils Absolute Manual 0.16 K/mm3 (0-0.1); Basophils Percent Manual 2 % (0-1); Myelocytes Percent 2 %; Platelet Estimate Adequate (Adequate)
[2020-09-29] MEDS: SPIRONOLACTONE 25 MG TABLET PO (08:45)
[2020-09-29] MEDS: METOPROLOL SUCCINATE EXT REL 12.5 MG TABCR PO (08:45)
[2020-09-29] MEDS: CEFDINIR 300 MG CAPSULE PO (08:45)
[2020-09-29] MEDS: hydroCHLOROthiazide 25 MG TABLET PO (08:45)
--- NOTE | 2020-09-29 11:42 | PM.DS ---
DS: Admitting Diagnosis Admitting Diagnosis Admitting Diagnosis: A. fib with RVR DS: Discharge Diagnosis Discharge Diagnosis (1) Atrial fibrillation with RVR: Code(s): I48.91 - Unspecified atrial fibrillation Status: Acute Assessment and Plan: Pt on Cardizem and will be transitioned to PO, Cardiac Monitoring, SpO2 monitoring, monitor VS, continue with Xarelto, Metoprolol, Losartan, Spironolactone, HCTZ History of paroxysmal Afib Patient currently sinus rhythm with a heart rate of 69 Patient will discharge home with Cardizem p.o. 120 mg and will need to follow-up with her primary care physician she is currently on metoprolol in She will need to follow-up with Dr. Oscar Patient last admission for A. fib with RVR was back in 07/07/2017. At that time patient was medically converted to sinus rhythm. Since then she has not had any episodes so her wire roller took her off of Cardizem. Repeat EKG before discharge indicates sinus rhythm (2) Chest pain: Qualifiers: Chest pain type: precordial pain Qualified Code(s): R07.2 - Precordial pain Code(s): R07.9 - Chest pain, unspecified Status: Acute Assessment and Plan: Serial Troponin, possible costochondritis vs cardiac in nature d/t recent yard work and physical assessment findings vs A fib RVR causing increased O2 demand, see A fib above Resolved (3) Infiltrate of lower lobe of lung present on imaging study: Code(s): R91.8 - Other nonspecific abnormal finding of lung field Status: Acute Assessment and Plan: BNP elevated, no rales on the lungs, possible pneumonia for which Cefdinir given IV Patient was discharged home with 10 days of cefdinir No blood culture collected (4) Rheumatoid arthritis: Code(s): M06.9 - Rheumatoid arthritis, unspecified Status: Chronic Assessment and Plan: Continue Prednisone which alternates 10 mg and 5 mg every other day (Pt unsure which dose she had today, will start tomorrow with 5 mg), Leflunomide (Pt will need to bring this medication in from home) (5) Hypertension: Code(s): I10 - Essential (primary) hypertension Status: Chronic Assessment and Plan: Continue HCTZ, Losartan, Metoprolol, Spironolactone, monitor VS, make adjustments to medications as needed especially with addition of Cardizem and transitioning to PO. (6) Hyperlipidemia: Code(s): E78.5 - Hyperlipidemia, unspecified Status: Chronic Assessment and Plan: Continue Atorvastatin (7) Anxiety: Code(s): F41.9 - Anxiety disorder, unspecified Status: Chronic Assessment and Plan: Continue Alprazolam DS: Summary Hospital Course Reason for hospitalization: A. fib with RVR Hospital Course: Chasidy Thomas is a 75 year old female who comes to the hospital for a C/C of Chest Pain and SOB. Pt admitted under Observation to monitor Atrial fibrillation with RVR, SOB, serial troponin, treat for potential pneumonia bilateral bases. Pt states that she had been doing some garden work 3+ days ago. she noticed that her heart was beating fast and hard but she did not have any CP at that time. Yesterday she was driving in her car and noticed Left lower chest pain at a level of 5/10 which came about with deep breathing and with movement. Pt states this is a sharp and dull pain that does not radiate. As long as she does not take a deep breath of move her pain is 0-1. Pt has a Hx of A fib for which she takes Xarelto and Metoprolol. No recent changes to her medications.today patient's heart rate is controlled she was discharged home on Cardizem and follow-up with her wire roller Dr Oscar. The patient denies SOB, CP, palpitation, extremity numbness, lightheadedness, dizziness, constipation, diarrhea, chills, or fever. Patient does admit to having soreness to her left shoulder and chest Disposition Home with self-care Observation Time spent 60 minutes Time Spent with Patient Time at
--- NOTE | 2020-09-29 12:00 | ECG_ITS ---
Measurements Intervals [place] Rate: 65 P: 57 IN: 147 QRS: 69 QRSD: 90 T: 53 QT: 416 QTc: 434 Interpretive Statements SINUS RHYTHM BASELINE ARTIFACT- I, II, III, AVR, AVL, AVF NORMAL ECG Electronically Signed On 09-29-2020 18:02:30 CDT by Markus Ayala D.O.
--- NOTE | 2020-09-29 13:35 | PC.NURSE ---
pt discharged in stable condition, pt ambulated with spouse to personal vehicle, pt verbalized understanding of discharge instructions
--- NOTE | 2020-10-01 15:17 | PC.NURSE ---
Pt states she received and understood her discharge instructions. Pt also states I was very pleased with everybody up there .
== END 2020-09-29 13:35 | disposition home or self-care (01) ==
LOC: CHSED 13:20 → CHS2ND 13:41
PROVIDERS: Admitting Provider Emergency Medicine; Emergency Provider Emergency Medicine; PCP Internal Medicine; Visit Provider Nurse Practitioner
DX: I48.20 Chronic atrial fibrillation, unspecified (principal); R07.9 Chest pain, unspecified; R91.8 Other nonspecific abnormal finding of lung field; I10 Essential (primary) hypertension; K21.9 Gastro-esophageal reflux disease without esophagitis; E78.5 Hyperlipidemia, unspecified; M17.11 Unilateral primary osteoarthritis, right knee; M19.031 Primary osteoarthritis, right wrist; M06.9 Rheumatoid arthritis, unspecified; F41.9 Anxiety disorder, unspecified; Z98.49 Cataract extraction status, unspecified eye; Z80.0 Family history of malignant neoplasm of digestive organs; Z79.02 Long term (current) use of antithrombotics/antiplatelets; Z87.891 Personal history of nicotine dependence
CPT/HCPCS: 36415; 71046; 80053; 81003; 83880; 84443; 84484; 85025; 93005; 96365; 99285; A9270; G0378

== ENCOUNTER 2020-10-31 10:41 | Inpatient (IN) | payer MEDICARE, SELFPAY ==
[2020-10-31] VITALS (13 sets, daily range): BP systolic 92–137; BP diastolic 57–98; PULSE 74–166; RESP 16–20; TEMP 36.3–36.6; O2SAT 98–100; BMI 22.2
--- NOTE | ~2020-10-31 | XR_ITS ---
EXAMINATION: XR chest 1V portable DATE: 10/31/2020 11:29 INDICATION: Shortness of breath. TECHNIQUE: A single frontal view of the chest was obtained. COMPARISON: Chest 2 views 09/28/2020 FINDINGS: There is mild scarring at left lung apex. A calcified right lung nodule and calcified media stinal lymph nodes are consistent with old granulomatous disease. No pleural effusion or pneumothorax . The heart size is normal. IMPRESSION: 1. Mild scarring at left lung apex. Reviewed, dictated and finalized at location A.
--- NOTE | ~2020-10-31 | XR_ITS ---
EXAMINATION: XR chest 1V portable EXAM DATE: 11/01/2020 08:27 INDICATION: Shortness of breath. TECHNIQUE: Portable AP frontal chest x-ray was obtained. Comparison is made to prior examination from 10/31/2020. FINDINGS: Small amount of chronic appearing right basilar reticulonodular opacity, likely postinfecti ous. Biapical scarring as well. The lungs are hyperinflated which can be seen with chronic obstructiv e pulmonary disease (a clinical diagnosis of functional impairment), but is not diagnostic of it. Eduardo row cardiac silhouette from the hyperinflated lungs. There is no pneumothorax suspected. There are no pleural effusions. There are no osseous abnormalities identified. There is no significant interval c hange. IMPRESSION: 1. Hyperinflation. Reviewed, dictated and finalized at location B. IMPRESSION: 1. Hyperinflation.
[2020-10-31] MEDS: dilTIAZem HCl INJ 25 MG/5 ML VIAL 15 MG IV PUSH (10:53)
[2020-10-31 11:15] LABS: Basophils Absolute Auto 0.1 K/mm3 (0.0-0.1); Basophils Percent Auto 0.9 % (0.2-1.2); Eosinophils Absolute Auto 0.1 K/mm3 (0-0.3); Eosinophils Percent Auto 0.7 % (0-4.4); Hematocrit 41.8 % (37.0-47.0); Hemoglobin 13.5 g/dL (12.0-15.0); Immature Granulocyte Absolute 0.72 K/mm3 (0.00-0.031); Immature Granulocyte Percent A 4.8 % (0-0.5); Lymphocytes Absolute Auto 1.53 K/mm3 (0.9-3.2); Lymphocytes Percent Auto 10.3 % (18.3-44.2); Mean Corpuscular HGB Conc 32.3 g/dl (32-36); Mean Corpuscular Hemoglobin 31.5 pg (26-34); Mean Corpuscular Volume 97.4 fl (80-100); Mean Platelet Volume 10.9 fl (7.4-10.4); Neutrophils Absolute Auto 11.3 K/mm3 (1.3-6.7); Neutrophils Percent Auto 76.3 % (45.5-73.1); Platelet Count Result 281 k/mm3 (150-375); Red Blood Count 4.29 M/mm3 (4.2-5.4); Red Cell Distribution Width 15.2 % (11.5-14.5); White Blood Count 14.9 K/mm3 (4.5-10.0)
[2020-10-31 11:24] LABS: Anion Gap 9 mmol/L (8-16); Blood Urea Nitrogen 32 mg/dL (7-17); Calcium 10.1 mg/dL (8.4-10.2); Carbon Dioxide 26 mmol/L (22-30); Chloride 100 mmol/L (98-107); Estimated Glomerular Filt Rate 27; Glucose 94 mg/dL (65-105); Potassium 3.3 mmol/L (3.4-5.0); Sodium 135 mmol/L (137-145)
[2020-10-31 11:29] LABS: INR 1.3; Partial Thromboplastin Time 25.5 SECONDS (22.3-36.8); Prothrombin Time 15.6 Seconds (11.1-14.7)
--- NOTE | 2020-10-31 11:32 | ECG_ITS ---
Measurements Intervals [place] Rate: 150 P: FL: 0 QRS: 63 QRSD: 85 T: 53 QT: 278 QTc: 440 Interpretive Statements ATRIAL FIBRILLATION WITH RAPID VENTRICULAR RESPONSE INCOMPLETE RIGHT BUNDLE BRANCH BLOCK BORDERLINE ST-T WAVE ABNORMALITY- ANTEROLAT/INF LEADS ABNORMAL ECG Electronically Signed On 10-31-2020 11:53:42 CDT by Markus Ayala D.O.
[2020-10-31 11:37] LABS: NT Pro B Type Natriuretic Pept 8910 pg/mL (5-100); Troponin I < 0.012 ng/mL (0.000-0.034)
--- NOTE | 2020-10-31 11:54 | ED.ARRPALP ---
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 Patient has had palpitations over the past 36 hours and some mild shortness of breath. She denies any chest pain. She has been compliant with her medications. States that she was seen at her concrete engineer office this morning, had an EKG performed and was referred to this emergency department. Patient has a history of this in the past in the month of September. No recent medication changes. No leg swelling or chest pain. Related Data Home Medications Medication Instructions Recorded Confirmed alprazolam 0.5 mg PO HS 10/06/19 09/28/20 ascorbic acid (vitamin C) 500 mg PO DAILY 10/06/19 09/28/20 atorvastatin 20 mg PO QAM 10/06/19 09/28/20 calcium citrate-vitamin D3 1 tablet PO DAILY 10/06/19 09/28/20 [Citracal Regular] magnesium oxide 400 mg PO BID 10/06/19 09/28/20 omeprazole 40 mg PO DAILY 10/06/19 09/28/20 prednisone 5 mg PO EVERY OTHER DAY 10/06/19 09/28/20 prednisone 10 mg PO EVERY OTHER DAY 10/06/19 09/28/20 Xarelto 15 mg PO DAILY 04/29/20 09/28/20 hydrochlorothiazide 25 mg PO DAILY 04/29/20 09/28/20 leflunomide 10 mg PO DAILY 04/29/20 09/28/20 acetaminophen 1,000 mg PO Q6H 06/26/20 09/28/20 metoprolol succinate 12.5 mg PO QAM 06/26/20 09/28/20 spironolactone 25 mg PO DAILY 06/26/20 09/28/20 ferrous sulfate [Iron (ferrous 325 mg PO TID 09/28/20 09/28/20 sulfate)] Allergies Allergy/AdvReac Type Severity Reaction Status Date / Time Sulfa (Sulfonamide AdvReac Unknown Nausea Verified 10/31/20 10:53 Antibiotics) oxycodone AdvReac Nausea and Verified 10/31/20 10:53 Vomiting Review of Systems Review of Systems: Narrative: CONSTITUTIONAL: Denies fever, chills, or sweats. EYES: Denies visual changes, redness, or discharge. ENT: Denies rhinorrhea, congestion, sore throat, or otalgia. CARDIOVASCULAR: Denies chest pain, reports palpitations without edema RESPIRATORY: Mild shortness of breath, denies cough GASTROINTESTINAL: Denies abdominal pain, nausea, vomiting, or diarrhea. GENITOURINARY: Denies dysuria or hematuria. SKIN: Denies rash or itching. MUSCULOSKELETAL: Denies back pain, joint pain, or myalgia. NEUROLOGIC: Denies headache, numbness, or weakness. [facility] Past Medical History Medical History Anxiety Atrial fibrillation Paroxysmal Atrial flutter (08/14/17) Blister of toe (02/24/18) Diarrhea (10/22/17) Effusion, right knee GERD (gastroesophageal reflux disease) H/O supraventricular tachycardia Hemarthrosis of right knee Hyperlipidemia Hypertension Primary osteoarthritis of right knee Primary osteoarthritis of right wrist Rheumatoid arthritis Shoulder pain (08/14/17) Wrist pain (03/09/18) Surgical History Surgical History H/O cataract extraction H/O dilation and curettage A couple times History of tonsillectomy History of tubal ligation Family History Family History Father Carcinoma of colon Mother Family history of congestive heart failure Other Family history of malignant neoplasm Hypertension Social History Social History Social History: 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 She is and lives with her . She desires ever is a durable power assistant district attorney for healthcare. Patient desires to be a full code. She has 3 children. S
[2020-10-31] MEDS: SODIUM CHLORIDE 0.9% IV 500 ML 999 ML IV CONT (12:46)
[2020-10-31] MEDS: MAGNESIUM SULF 2 GM/WATER 50ML 2 GM/50 ML BAG IVPB (12:46)
[2020-10-31 14:03] LABS: Troponin I < 0.012 ng/mL (0.000-0.034)
[2020-10-31 14:24] LABS: Add Urine Microscopic? YES; Appearance Urine Clear (Clear); Bilirubin Urine Negative (Negative); Blood Urine Negative (Negative); Color Urine Straw (Yellow); Glucose Urine UA Negative (Negative); Ketones Urine Negative (Negative); Leukocyte Esterase Ur Negative LEU/UL (Negative); Nitrate Urine Negative (Negative); Protein Urine Negative (Negative); Specific Grav Ur 1.009 (1.001-1.035); Squamous Epithelial Cell Urine Rare /hpf (Few); Urobilinogen Urine Negative mg/dL (<2.0); WBC Urine 0-3 /hpf
[2020-10-31] MEDS: ETOMIDATE 20 MG/10 ML AMPUL 5 MG IV PUSH (15:20)
[2020-10-31] MEDS: dilTIAZem HCl INJ 25 MG/5 ML VIAL 10 MG IV PUSH (16:12)
[2020-10-31] MEDS: POTASSIUM CHLORIDE 20 MEQ PACKET (FOR LIQUID) 40 MEQ PO (16:14)
--- NOTE | 2020-10-31 16:49 | ADMGEN ---
This patient, Chasidy Thomas, was admitted to IMU Room 207-01. Patient/family oriented to hospital policies and general routines including ID bracelet, bed and alarms, visiting hours, pain management, procedures, bathroom and other care routines, personal items, smoking policy, room service/diet, and visiting hours. Information on how to activate the Rapid Response Team has been discussed. Patient/Family are encouraged to report perceived risks to care and to ask questions if they do not understand what they are told or what they should do.
[2020-10-31 18:10] LABS: Troponin I < 0.012 ng/mL (0.000-0.034)
--- NOTE | 2020-10-31 18:18 | PM.IMHP ---
H&P: HPI History of Present Illness Date/Time: 10/31/20 18:18 Chief Complaint: shortness of breath Narrative: 75 year female with past medical history significant for hypertension, hyperlipidemia, Rheumatoid arthritis, anxiety and teaches fibrillation who was recently admitted to the hospital 09/29 with AFib with RVR and managed for pneumonia (discharged with 10 days worth of cefdinir), presented from her ob gyn's office with complaints of palpitations and shortness of breath. An EKG was obtained at the ob gyn's office that showed AFib with RVR and she was referred to the emergency room for further management. patient reports that she was discharged on Cardizem and metoprolol however was seen by her ob gyn's office 2 weeks ago, when she was asked to discontinue Cardizem. she reports feeling palpitations with shortness of breath and dyspnea on exertion for the past 2 days. She denies any chest pain, nausea, vomiting, headache, dizziness, blurred vision or any other complaints. In the ED patient was noted to have a heart rate of 160 and was attempted to be cardioverted however was unsuccessful. Cardiology was brought on board and patient was started on diltiazem drip and is now being managed in the IMU for further care. Review of Systems Review of Systems: Narrative: a 10 point review of system was conducted which was otherwise negative pertinent positives are as per HPI. [facility] Past Medical History Medical History Anxiety Atrial fibrillation Paroxysmal Atrial flutter (08/14/17) Blister of toe (02/24/18) Diarrhea (10/22/17) Effusion, right knee GERD (gastroesophageal reflux disease) H/O supraventricular tachycardia Hemarthrosis of right knee Hyperlipidemia Hypertension Primary osteoarthritis of right knee Primary osteoarthritis of right wrist Rheumatoid arthritis Shoulder pain (08/14/17) Wrist pain (03/09/18) Surgical History Surgical History H/O cataract extraction H/O dilation and curettage A couple times History of tonsillectomy History of tubal ligation Family History Family History Father Carcinoma of colon Mother Family history of congestive heart failure Other Family history of malignant neoplasm Hypertension Social History Social History Social History: 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 She is and lives with her . She desires ever is a durable power energy attorney for healthcare. Patient desires to be a full code. She has 3 children. She is to smoke but quit when she is around 59 years old. No alcohol marijuana or illicit drugs. Smoking packs per day: 1 Smoking cigarettes per day: 20.0 Years smoked: 30 Smoking pack-years: 30.00 Smoking status: Former smoker Tobacco type: cigarettes Second hand tobacco smoke exposure: No Smoking end date: 10/31/94 Additional smoking assessment comments: STATES 1PK/DAY/30YRS QUIT 1993 Alcohol intake: current Drinks per week: 6 Substance use: never Substance use type: does not use Gender identity (if verbalized by the patient): Female Spiritual care concerns: No Meds Home Medications and Allergies Home Medications Medication Instructions Recorded Confirmed Type alprazolam 0.5 mg PO HS 10/06/19 10/31/20 History ascorbic acid (vitamin C) 500 mg PO DAILY 10/06/19 10/31/20 History atorvastatin 20 mg PO QAM 10/06/19 10/31/20 History calcium citrate-vitamin D3 1 tablet PO DAILY 10/06/19 09/28/20 History [Citracal Regular] magnesium oxide 400 mg PO BID 10/06/19 10/31/20 History omeprazole 40 mg PO DAILY 10/06/19 10/31/20 History prednisone 5 mg PO EVERY OTHER DAY 10/06/19 09/28/20 History prednisone 10 mg PO EVERY OTHER DAY 10/06/19 0
[2020-10-31 20:06] LABS: Troponin I < 0.012 ng/mL (0.000-0.034)
[2020-10-31] MEDS: RIVAROXABAN 15 MG TABLET PO (22:54)
[2020-10-31] MEDS: ALPRAZolam (*CRX) 0.5 MG TABLET PO (23:11)
--- NOTE | 2020-10-31 23:27 | ECG_ITS ---
Measurements Intervals [place] Rate: 144 P: NM: 0 QRS: 70 QRSD: 80 T: 47 QT: 289 QTc: 448 Interpretive Statements ATRIAL FIBRILLATION WITH RAPID VENTRICULAR RESPONSE ABNORMAL ECG Electronically Signed On 11-01-2020 6:54:43 CDT by Markus Ayala D.O.
[2020-11-01] VITALS (22 sets, daily range): BP systolic 91–114; BP diastolic 53–70; PULSE 70–144; RESP 12–20; TEMP 36.4–36.9; O2SAT 97–99
[2020-11-01 01:24] LABS: Troponin I < 0.012 ng/mL (0.000-0.034)
[2020-11-01] MEDS: dilTIAZem HCl INJ 25 MG/5 ML VIAL 10 MG IV PUSH (05:06)
[2020-11-01 06:11] LABS: Basophils Absolute Auto 0.1 K/mm3 (0.0-0.1); Basophils Percent Auto 1.4 % (0.2-1.2); Eosinophils Absolute Auto 0.2 K/mm3 (0-0.3); Eosinophils Percent Auto 2.2 % (0-4.4); Hematocrit 33.1 % (37.0-47.0); Hemoglobin 10.8 g/dL (12.0-15.0); Immature Granulocyte Absolute 0.47 K/mm3 (0.00-0.031); Immature Granulocyte Percent A 5.3 % (0-0.5); Lymphocytes Absolute Auto 2.21 K/mm3 (0.9-3.2); Lymphocytes Percent Auto 25.1 % (18.3-44.2); Mean Corpuscular HGB Conc 32.6 g/dl (32-36); Mean Corpuscular Hemoglobin 31.1 pg (26-34); Mean Corpuscular Volume 95.4 fl (80-100); Mean Platelet Volume 10.3 fl (7.4-10.4); Monocytes Absolute Auto 0.8 K/mm3 (0.1-0.6); Platelet Count Result 198 k/mm3 (150-375); Red Blood Count 3.47 M/mm3 (4.2-5.4); Red Cell Distribution Width 15.1 % (11.5-14.5); White Blood Count 8.8 K/mm3 (4.5-10.0)
[2020-11-01 06:28] LABS: Alanine Aminotransferase 17 U/L (4-35); Albumin Level 3.3 g/dL (3.5-5.1); Alkaline Phosphatase 54 U/L (38-126); Anion Gap 3 mmol/L (8-16); Aspartate Amino Transferase 25 U/L (14-36); Bilirubin,Total 0.7 mg/dL (0.2-1.3); Blood Urea Nitrogen 22 mg/dL (7-17); Calcium 8.9 mg/dL (8.4-10.2); Carbon Dioxide 25 mmol/L (22-30); Chloride 105 mmol/L (98-107); Estimated CRCL calculation 31 ml/min; Estimated Glomerular Filt Rate 37; Glucose 83 mg/dL (65-105); Potassium 3.7 mmol/L (3.4-5.0); Sodium 133 mmol/L (137-145)
[2020-11-01 06:37] LABS: Troponin I < 0.012 ng/mL (0.000-0.034)
[2020-11-01] MEDS: LOSARTAN POTASSIUM 25 MG TABLET PO (08:13)
[2020-11-01] MEDS: hydroCHLOROthiazide 25 MG TABLET PO (08:13)
[2020-11-01] MEDS: FERROUS SULFATE 324 MG TABLET PO ×3 (08:13→18:59)
[2020-11-01] MEDS: LEFLUNOMIDE 20 MG TABLET 10 MG PO (08:13)
[2020-11-01] MEDS: ATORVASTATIN 20 MG TABLET PO (08:13)
[2020-11-01] MEDS: SPIRONOLACTONE 25 MG TABLET PO (08:13)
[2020-11-01] MEDS: PANTOPRAZOLE 40 MG TABLET PO (08:13)
[2020-11-01] MEDS: predniSONE 5 MG TABLET PO (08:14)
[2020-11-01 08:18] LABS: D Dimer 0.27 ug/mL (<0.48)
--- NOTE | 2020-11-01 08:21 | PC.NURSE ---
Spoke with Brittani Saldaña NP regarding patient's elevated heart rate 150-170's and decreased BP of 94/66. New order to hold Metoprolol until seen by Dr. Jackson and increase Cardizem drip to 10mg/hr.
--- NOTE | 2020-11-01 09:44 | PM.CNCAR ---
Assessment and Plan Additional Plan 1- paroxysmal atrial fibrillation currently in AFib with RVR 2- hypertension 3- CKD stage 3 4- rheumatoid arthritis this 75-year-old female who was admitted with AFib with RVR. currently on IV diltiazem and remains in AFib with RVR and her blood pressure is soft.. She did have a long history of tobacco use and her x-ray shows hyperinflation. I am ahesitant to use amiodarone here due to underlying lung issues. will attempt to use flecainide 50 mg p.o. b.i.d. and hopefully she converts to sinus rhythm. continue IV diltiazem. agree with holding HCTZ, losartan. Will hold also Aldactone given soft blood pressure. she does have underlying CKD stage 3 and therefore I would just keep her on flecainide 50 mg b.i.d. and will not increase the dosage. last echo in office done May 2020 shows normal LV systolic function mild mitral regurgitation. History of Present Illness History of Present Illness Consult date/time: date of tifldtk54/08/21 09:44 Requesting physician: Nadya He MD Consult reason: atrial fibrillation Reason For Visit: a fib with rvr Narrative: this 75-year-old female with past history of rheumatoid arthritis, hypertension, hyperlipidemia, CKD stage 3,atrial fibrillation on Xarelto 15 mg daily who apparently was sent from the office yesterday because of AFib with RVR. she was apparently hospitalized September 29, 2020 for atrial fibrillation at [facility] and at that time discharged home on metoprolol and diltiazem. She converted to sinus rhythm on diltiazem that time. She was seen in the Cardiology office about couple weeks ago and was taken off diltiazem. apparently was seen yesterday in the Cardiology office because patient was feeling funny and the EKG obtained in the office shows AFib with RVR with heart rate in the 180s. She was sent to the emergency room. Because she was anticoagulated all the time attempted cardioversion fail to converted to sinus rhythm. At that time she was started on IV diltiazem drip. remains in AFib with RVR. She feels some palpitations along with dyspnea on exertion but denies chest pain, limb edema, dizziness or syncope, orthopnea paroxysmal nocturnal dyspnea. serum creatinine on admission 1.8 and today 1.4, baseline around 1.5. Electrolytes within normal, hemoglobin 10, EKG reviewed and analyzed by myself shows AFib with RVR. No ischemia. Chest x-ray reviewed analyze myself shows hyperinflation. Troponins negative. Review of Systems Constitutional: Constitutional: Denies chills, Denies fever(s) and Denies poor appetite Eyes: Eyes: Denies eye discharge, Denies loss of vision, Denies eye pain and Denies photophobia ENT: Denies dizziness, Denies epistaxis, Denies nasal congestion and Denies sore throat Cardiovascular: Cardiovascular: Denies chest pain, Denies syncope, Denies pedal edema, Reports irregular heart rhythm, Denies leg edema, Reports palpitations, Denies dyspnea, Reports dyspnea on exertion and Denies orthopnea Respiratory: Respiratory: Denies cough, Reports dyspnea on exertion and Denies wheezing Gastrointestinal: Gastrointestinal: Denies abdominal pain, Denies diarrhea, Denies nausea and Denies vomiting Genitourinary: Genitourinary: Denies hematuria, Denies genital lesions and Denies dysuria Musculoskeletal: Musculoskeletal: Denies arthralgias, Denies joint swelling and Denies numbness Integumentary/Breasts: Skin/Breast: Denies pruritus and Denies rash Neurologic: Denies dizziness, Denies syncope, Denies loss of vision and Denies numbness Psychiatric: Psychiatric: Denies anxiety and Denies depression Endocrine: Endocrine: Denies cold intolerance, Denies heat intolerance and Denies palpitations Hematologic/Lymphatic: Hematologic/Lymphatic: Denies easy bleeding and Denies easy bruising Allergic/Immunologic: Allergic/Immunologic: Denies urticaria and Denies wheezing PMFSH Past Medical History Medical Histor
[2020-11-01] MEDS: FLECAINIDE ACETATE 50 MG TABLET PO ×2 (10:45→20:15)
--- NOTE | 2020-11-01 11:38 | ECG_ITS ---
Measurements Intervals [place] Rate: 77 P: 58 PA: 166 QRS: 65 QRSD: 73 T: 41 QT: 370 QTc: 419 Interpretive Statements SINUS RHYTHM BASELINE ARTIFACT- I, II, III, AVR, AVL, AVF, V1-V6 NORMAL ECG Electronically Signed On 11-01-2020 15:25:09 CDT by Markus Ayala D.O.
--- NOTE | 2020-11-01 11:49 | PC.NURSE ---
Pt converted to NSR around 1050. Notified Dr. Friedman. New order to stop Cardizem drip and obtain 12 lead EKG
[2020-11-01] MEDS: RIVAROXABAN 15 MG TABLET PO (18:59)
--- NOTE | 2020-11-01 19:23 | PM.IMPN ---
Progress Note: A&P Assessment and Plan (1) Atrial fibrillation with RVR: Code(s): I48.91 - Unspecified atrial fibrillation Status: Acute Assessment and Plan: Started on flecainide 50 mg p.o. b.i.d. as per Cardiology service Was continued on IV diltiazem in the interim while awaiting sinus rhythm conversion Patient was noted to convert into sinus rhythm and IV diltiazem drip was discontinued (2) Leukocytosis, unspecified: Qualifiers: Leukocytosis type: unspecified Qualified Code(s): D72.829 - Elevated white blood cell count, unspecified Code(s): D72.829 - Elevated white blood cell count, unspecified Status: Resolved Assessment and Plan: possibly reactive (3) CKD (chronic kidney disease) stage 3, GFR 30-59 ml/min: Qualifiers: Chronic kidney disease stage 3 subtype: stage 3a (GFR 45-59) Qualified Code(s): N18.31 - Chronic kidney disease, stage 3a Code(s): N18.30 - Chronic kidney disease, stage 3 unspecified Status: Acute Assessment and Plan: stable (4) Anemia in chronic kidney disease (CKD): Qualifiers: Chronic kidney disease stage: stage 3 (moderate) Chronic kidney disease stage 3 subtype: stage 3a (GFR 45-59) Qualified Code(s): N18.31 - Chronic kidney disease, stage 3a; D63.1 - Anemia in chronic kidney disease Code(s): N18.9 - Chronic kidney disease, unspecified; D63.1 - Anemia in chronic kidney disease Status: Acute Assessment and Plan: stable (5) Hypertension: Qualifiers: Hypertension type: unspecified Qualified Code(s): I10 - Essential (primary) hypertension Code(s): I10 - Essential (primary) hypertension Status: Acute Assessment and Plan: will hold off on hydrochlorothiazide losartan and Aldactone Await cardiology recommendations regarding metoprolol dosing blood pressures are noted to be on the softer side on diltiazem drip (6) Hyperlipidemia: Qualifiers: Hyperlipidemia type: mixed hyperlipidemia Qualified Code(s): E78.2 - Mixed hyperlipidemia Code(s): E78.5 - Hyperlipidemia, unspecified Status: Acute (7) Rheumatoid arthritis: Qualifiers: Rheumatoid arthritis location: unspecified site Rheumatoid factor presence: unspecified presence Qualified Code(s): M06.9 - Rheumatoid arthritis, unspecified Code(s): M06.9 - Rheumatoid arthritis, unspecified Status: Acute (8) Hypokalemia: Code(s): E87.6 - Hypokalemia Status: Resolved Assessment and Plan: resolved Subjective Date/time seen: 11/01/20 19:23 Interval history: patient feels much better today Was noted to have converted into normal sinus rhythm however earlier in the morning however later converted again into AFib with RVR Received flecainide as per cardiology service and converted to normal sinus rhythm thereafter Review of Systems Review of Systems: All systems reviewed & are unremarkable except as noted in HPI and below Exam Const: General: cooperative HENMT: Head: normal to inspection Eyes: General: appearance normal, both eyes and all related structures Neck: Neck: normal visual inspection Chest: Chest palpation & inspection: normal inspection of the chest Resp: Effort & Inspection: normal respiratory effort Auscultation: clear to auscultation bilaterally Cardio: Jugular venous distension: no JVD Palpation: normal PMI Rate: regular rate Rhythm: regular rhythm Heart sounds: S1 normal heart sound present and S2 normal heart sound present GI: Inspection: normal to inspection GI Palp: Yes Soft to palpation and Yes No hepatosplenomegaly present Percussion: Yes normal to percussion Auscultation: normal bowel sounds Back/Spine/Pelvis: Back: no CVA tenderness Skin: General skin exam: normal color Neuro: General: patient oriented x3, gait normal and tone normal Extrem: General: normal to inspection Right lower
[2020-11-01] MEDS: METOPROLOL SUCCINATE EXT REL 25 MG TABCR PO (20:15)
[2020-11-01] MEDS: ALPRAZolam (*CRX) 0.5 MG TABLET PO (21:58)
[2020-11-02] VITALS (8 sets, daily range): BP systolic 90–112; BP diastolic 54–74; PULSE 64–78; RESP 14–15; TEMP 36.5–36.9; O2SAT 98–100
[2020-11-02 04:54] LABS: Basophils Absolute Auto 0.1 K/mm3 (0.0-0.1); Basophils Percent Auto 1.4 % (0.2-1.2); Eosinophils Absolute Auto 0.2 K/mm3 (0-0.3); Eosinophils Percent Auto 1.7 % (0-4.4); Hematocrit 31.4 % (37.0-47.0); Hemoglobin 10.2 g/dL (12.0-15.0); Immature Granulocyte Absolute 0.45 K/mm3 (0.00-0.031); Immature Granulocyte Percent A 5.2 % (0-0.5); Lymphocytes Absolute Auto 1.91 K/mm3 (0.9-3.2); Lymphocytes Percent Auto 21.9 % (18.3-44.2); Mean Corpuscular HGB Conc 32.5 g/dl (32-36); Mean Corpuscular Hemoglobin 31.6 pg (26-34); Mean Corpuscular Volume 97.2 fl (80-100); Mean Platelet Volume 10.3 fl (7.4-10.4); Monocytes Absolute Auto 0.7 K/mm3 (0.1-0.6); Neutrophils Absolute Auto 5.4 K/mm3 (1.3-6.7); Neutrophils Percent Auto 61.8 % (45.5-73.1); Platelet Count Result 185 k/mm3 (150-375); Red Blood Count 3.23 M/mm3 (4.2-5.4); White Blood Count 8.7 K/mm3 (4.5-10.0)
[2020-11-02 05:02] LABS: Alanine Aminotransferase 16 U/L (4-35); Albumin Level 3.2 g/dL (3.5-5.1); Alkaline Phosphatase 54 U/L (38-126); Anion Gap 4 mmol/L (8-16); Aspartate Amino Transferase 22 U/L (14-36); Bilirubin,Total 0.7 mg/dL (0.2-1.3); Blood Urea Nitrogen 22 mg/dL (7-17); Carbon Dioxide 24 mmol/L (22-30); Chloride 105 mmol/L (98-107); Estimated CRCL calculation 31 ml/min; Estimated Glomerular Filt Rate 37; Glucose 83 mg/dL (65-105); Potassium 3.7 mmol/L (3.4-5.0); Sodium 133 mmol/L (137-145)
--- NOTE | 2020-11-02 07:52 | PM.PNCARD ---
Progress Note: A&P Additional Plan 1- paroxysmal atrial fibrillation currently in AFib with RVR 2- hypertension 3- CKD stage 3 4- rheumatoid arthritis this 75-year-old female who was admitted with AFib with RVR. currently on IV diltiazem and remains in AFib with RVR and her blood pressure is soft.. She did have a long history of tobacco use and her x-ray shows hyperinflation. converted to sinus rhythm. continue flecainide 50 mg p.o. b.i.d. recommend that we hold Aldactone as well because of soft blood pressure. continue Xarelto 15 mg daily. may be able to be discharged home today. will arrange for follow-up as an outpatient in couple weeks. Subjective Date/time seen: date of mykzstf80/09/21 07:52 she feels well today. She converted to sinus rhythm yesterday 15 minutes after giving the flecainide. pressure is soft. Review of Systems Constitutional: Constitutional: Denies chills, Denies fever(s) and Denies poor appetite Eyes: Eyes: Denies eye discharge, Denies loss of vision, Denies eye pain and Denies photophobia ENT: Denies dizziness, Denies epistaxis, Denies nasal congestion and Denies sore throat Cardiovascular: Cardiovascular: Denies chest pain, Denies syncope, Denies pedal edema, Reports irregular heart rhythm, Denies leg edema, Reports palpitations, Reports dyspnea on exertion and Denies orthopnea Respiratory: Respiratory: Denies cough, Reports dyspnea on exertion and Denies wheezing Gastrointestinal: Gastrointestinal: Denies abdominal pain, Denies diarrhea, Denies nausea and Denies vomiting Genitourinary: Genitourinary: Denies hematuria, Denies genital lesions and Denies dysuria Musculoskeletal: Musculoskeletal: Denies arthralgias, Denies joint swelling and Denies numbness Integumentary/Breasts: Skin/Breast: Denies pruritus and Denies rash Neurologic: Denies dizziness, Denies syncope, Denies loss of vision and Denies numbness Psychiatric: Psychiatric: Denies anxiety and Denies depression Endocrine: Endocrine: Denies cold intolerance, Denies heat intolerance and Reports palpitations Hematologic/Lymphatic: Hematologic/Lymphatic: Denies easy bleeding and Denies easy bruising Allergic/Immunologic: Allergic/Immunologic: Denies urticaria and Denies wheezing Exam Const: General: cooperative, comfortable, no acute distress, alert and awake Nutritional Appearance: well nourished Orientation/consciousness: patient oriented x3 HENMT: Head: normal to inspection, normocephalic and atraumatic Ears: hearing grossly normal bilaterally General nose exam: Normal external nose present, Normal nares present and no nasal discharge noted Face and sinus: normal facial exam and no erythema Mouth: No drooling and No restricted motion Throat: uvula midline Eyes: General: appearance normal, both eyes and all related structures Alignment and Position: position normal Conjunctivae: conjunctivae normal Sclera: sclerae normal Direct Ophthalmoscopy: No photophobia Neck: Neck: normal visual inspection and no JVD Thyroid: thyroid normal Carotids: no bruits Lymphatic: lymphedema not noted Chest: Chest palpation & inspection: normal inspection of the chest and no tenderness Resp: Effort & Inspection: normal respiratory effort and no nasal flaring Auscultation: clear to auscultation bilaterally, no crackles, no rales and no wheezes Cardio: Jugular venous distension: no JVD Rate: regular rate and tachycardic Rhythm: abnormal rhythm Heart sounds: S1 normal heart sound present, S2 normal heart sound present, no gallops, no murmurs and no rubs GI: Inspection: non-distended Auscultation: normal bowel sounds Rectal Exam: deferred : General: No no CVA tenderness Back/Spine/Pelvis: Back: No no CVA tenderness Cervical Spine: cervical ROM normal Skin: General skin exam: normal color and rashes and/or lesions noted Neuro: General: patient oriented x3 Cranial nerves: No CN's II-XII intact bilaterally Speech: normal
[2020-11-02] MEDS: ATORVASTATIN 20 MG TABLET PO (08:21)
[2020-11-02] MEDS: PANTOPRAZOLE 40 MG TABLET PO (08:22)
[2020-11-02] MEDS: METOPROLOL SUCCINATE EXT REL 25 MG TABCR PO (08:22)
[2020-11-02] MEDS: FERROUS SULFATE 324 MG TABLET PO (08:22)
[2020-11-02] MEDS: predniSONE 5 MG TABLET PO (08:22)
[2020-11-02] MEDS: FLECAINIDE ACETATE 50 MG TABLET PO (08:22)
[2020-11-02] MEDS: LEFLUNOMIDE 20 MG TABLET 10 MG PO (08:22)
--- NOTE | 2020-11-02 11:23 | PM.DS ---
DS: Admitting Diagnosis Admitting Diagnosis Admitting Diagnosis: AFib with RVR DS: Discharge Diagnosis Discharge Diagnosis (1) CKD (chronic kidney disease) stage 3, GFR 30-59 ml/min: Qualifiers: Chronic kidney disease stage 3 subtype: stage 3a (GFR 45-59) Qualified Code(s): N18.31 - Chronic kidney disease, stage 3a Code(s): N18.30 - Chronic kidney disease, stage 3 unspecified Status: Acute (2) Hypertension: Qualifiers: Hypertension type: unspecified Qualified Code(s): I10 - Essential (primary) hypertension Code(s): I10 - Essential (primary) hypertension Status: Acute (3) Hyperlipidemia: Qualifiers: Hyperlipidemia type: mixed hyperlipidemia Qualified Code(s): E78.2 - Mixed hyperlipidemia Code(s): E78.5 - Hyperlipidemia, unspecified Status: Acute (4) Leukocytosis, unspecified: Qualifiers: Leukocytosis type: unspecified Qualified Code(s): D72.829 - Elevated white blood cell count, unspecified Code(s): D72.829 - Elevated white blood cell count, unspecified Status: Resolved (5) Anemia in chronic kidney disease (CKD): Qualifiers: Chronic kidney disease stage: stage 3 (moderate) Chronic kidney disease stage 3 subtype: stage 3a (GFR 45-59) Qualified Code(s): N18.31 - Chronic kidney disease, stage 3a; D63.1 - Anemia in chronic kidney disease Code(s): N18.9 - Chronic kidney disease, unspecified; D63.1 - Anemia in chronic kidney disease Status: Acute (6) Atrial fibrillation with RVR: Code(s): I48.91 - Unspecified atrial fibrillation Status: Acute DS: Summary Hospital Course Reason for hospitalization: AFib with RVR Hospital Course: 75-year-old female with past medical history significant for hypertension hyperlipidemia rheumatoid arthritis CKD stage 3 and AFib presented with complaints of palpitation. she was managed as a case of AFib with RVR. Started on diltiazem drip however did not show any improvement. Cardiology was brought on board and patient received p.o. flecainide. After this patient converted to normal sinus rhythm and her heart rate has been stable since. During her stay she was noted to have hypotension on diltiazem drip which was stopped. In addition her other blood pressure medications including hydrochlorothiazide losartan and spironolactone were also held. She continued to receive metoprolol and p.o. flecainide. Patient has been advised by Cardiology to hold off on resuming losartan and spironolactone until she sees them. Hydrochlorothiazide will be discontinued at the time discharge. Patient will continue to receive Xarelto 15 mg. Patient was discharged in stable condition and follow-up with cardiology as outpatient. Time Spent with Patient Time attestation: Total time spent providing and/or coordinating discharge services:> 30 minutes Exam Const: General: cooperative HENMT: Head: normal to inspection General nose exam: Normal external nose present Mouth: Yes Normal oral and palatal mucosa present Eyes: General: appearance normal, both eyes and all related structures Neck: Neck: normal visual inspection Chest: Chest palpation & inspection: normal inspection of the chest Resp: Effort & Inspection: normal respiratory effort Auscultation: clear to auscultation bilaterally Cardio: Jugular venous distension: no JVD Palpation: normal PMI Rate: regular rate Rhythm: regular rhythm Heart sounds: S1 normal heart sound present and S2 normal heart sound present GI: Inspection: normal to inspection GI Palp: Yes Soft to palpation and Yes No hepatosplenomegaly present Percussion: Yes normal to percussion Auscultation: normal bowel sounds Back/Spine/Pelvis: Back: no CVA tenderness Skin: General skin exam: normal color Neuro: General: patient oriented x3 and gait normal Extrem: General: normal to inspection Psych: Appearance: grossly normal DS: Data Data Co
== END 2020-11-02 12:50 | disposition home or self-care (01) | DRG 310 ==
LOC: ANHED 15:51 → ANHIMU 15:58
PROVIDERS: Emergency Medicine; Admitting Provider Internal Medicine; Emergency Provider Emergency Medicine; PCP Internal Medicine; Visit Provider Internal Medicine
DX: I48.91 Unspecified atrial fibrillation (principal); I12.9 Hypertensive chronic kidney disease with stage 1 through stage 4 chronic kidney disease, or unspecified chronic kidney disease; N18.31 Chronic kidney disease, stage 3a; D63.1 Anemia in chronic kidney disease; D72.829 Elevated white blood cell count, unspecified; E78.2 Mixed hyperlipidemia; M06.9 Rheumatoid arthritis, unspecified; F41.9 Anxiety disorder, unspecified; Z79.01 Long term (current) use of anticoagulants; Z79.899 Other long term (current) drug therapy; Z87.891 Personal history of nicotine dependence; Z98.49 Cataract extraction status, unspecified eye
CPT/HCPCS: 36415; 71045; 80048; 80053; 81001; 83880; 84484; 85025; 85380; 85610; 85730; 92960; 93005; 96361; 96365; 96366; 96375; 96376; 99285; A9270; G0378; J3475; J7040; J7512

== ENCOUNTER 2020-11-07 10:25 | Outpatient (CLI) | payer MEDICARE, SELFPAY ==
[2020-11-07 11:28] LABS: Albumin Level 3.6 g/dL (3.4-5.0); Anion Gap 10 mmol/L (8-16); Blood Urea Nitrogen 27 mg/dL (7-18); Calcium 9.4 mg/dL (8.5-10.1); Carbon Dioxide 26 mmol/L (21-32); Chloride 106 mmol/L (98-108); Estimated Glomerular Filt Rate 33; Glucose 83 mg/dL (70-99); Osmolality Calculated 298 mOsm/kg (285-295); Phosphorus 2.4 mg/dL (2.6-4.7); Potassium 4.1 mmol/L (3.5-5.1); Sodium 142 mmol/L (136-145)
== END 2020-11-07 10:26 | disposition home or self-care (01) ==
LOC: CHSLAB 10:26
PROVIDERS: PCP Internal Medicine; Visit Provider Internal Medicine Nephrology
DX: N18.9 Chronic kidney disease, unspecified (principal)
CPT/HCPCS: 36415; 80069

== ENCOUNTER 2020-11-21 11:33 | Outpatient (CLI) | payer MEDICARE, SELFPAY ==
[2020-11-21 11:52] LABS: Hemoglobin 11.8 g/dL (11.7-13.8); Mean Corpuscular HGB Conc 31.9 g/dL (32.0-36.0); Mean Corpuscular Hemoglobin 32.7 pg (27.0-31.0); Mean Corpuscular Volume 102.5 fL (78.0-102.0); Mean Platelet Volume 10.1 fl (9.2-11.8); Platelet Count Result 208 K/mm3 (150-420); Red Blood Count 3.61 M/mm3 (4.20-5.40); Red Cell Distribution Width 14.6 % (11.6-14.4); White Blood Count 10.8 K/mm3 (4.8-10.8)
[2020-11-21 12:30] LABS: Band Neutrophils Percent 1 % (0-6); Basophils Percent Manual 1 % (0-1); Eosinophils Percent Manual 1 % (1-6); Lymphocytes Absolute Manual 1.29 K/mm3 (1.1-4.5); Lymphocytes Percent Manual 12 % (18-44); Monocytes Absolute Manual 0.43 K/mm3 (0.1-0.90); Monocytes Percent Manual 4 % (3-9); Myelocytes Percent 1 %; Neutrophils Absolute Manual 8.74 K/mm3 (1.7-7.2); Neutrophils Percent Manual 80 % (46-73); Platelet Estimate Adequate (Adequate); Total Cells Counted 100
[2020-11-21 12:53] LABS: Anion Gap 12 mmol/L (8-16); Blood Urea Nitrogen 26 mg/dL (7-18); Calcium 9.5 mg/dL (8.5-10.1); Carbon Dioxide 29 mmol/L (21-32); Chloride 105 mmol/L (98-108); Estimated Glomerular Filt Rate 35; Glucose 80 mg/dL (70-99); Osmolality Calculated 305 mOsm/kg (285-295); Potassium 3.6 mmol/L (3.5-5.1); Sodium 146 mmol/L (136-145)
== END 2020-11-21 11:34 | disposition home or self-care (01) ==
LOC: CHSLAB 11:35
PROVIDERS: PCP Internal Medicine; Visit Provider Internal Medicine Hematology & Oncology
DX: D64.9 Anemia, unspecified (principal)
CPT/HCPCS: 36415; 80048; 85025

== ENCOUNTER 2021-01-02 13:22 | Outpatient (CLI) | payer MEDICARE, SELFPAY ==
[2021-01-02 13:39] LABS: Hematocrit 41.1 % (35.0-42.0); Hemoglobin 13.3 g/dL (11.7-13.8); Mean Corpuscular HGB Conc 32.4 g/dL (32.0-36.0); Mean Corpuscular Hemoglobin 32.5 pg (27.0-31.0); Mean Corpuscular Volume 100.5 fL (78.0-102.0); Mean Platelet Volume 10.6 fl (9.2-11.8); Platelet Count Result 208 K/mm3 (150-420); Red Blood Count 4.09 M/mm3 (4.20-5.40); Red Cell Distribution Width 13.1 % (11.6-14.4); White Blood Count 12.1 K/mm3 (4.8-10.8)
[2021-01-02 14:35] LABS: Alanine Aminotransferase 33 U/L (14-59); Albumin Level 3.9 g/dL (3.4-5.0); Alkaline Phosphatase 82 U/L (46-116); Anion Gap 9 mmol/L (8-16); Aspartate Amino Transferase 25 U/L (15-37); Bilirubin,Total 0.4 mg/dL (0.00-1.00); Blood Urea Nitrogen 20 mg/dL (7-18); Calcium 9.7 mg/dL (8.5-10.1); Carbon Dioxide 29 mmol/L (21-32); Chloride 105 mmol/L (98-108); Creatine Kinase 32 U/L (26-192); Estimated Glomerular Filt Rate 36; Glucose 87 mg/dL (70-99); Osmolality Calculated 297 mOsm/kg (285-295); Potassium 4.6 mmol/L (3.5-5.1); Sodium 143 mmol/L (136-145); Total Protein 6.3 g/dL (6.4-8.2)
[2021-01-02 14:39] LABS: Rheumatoid Factor Screen Negative (Negative)
[2021-01-02 14:40] LABS: Band Neutrophils Percent 0 % (0-6); Basophils Absolute Manual 0.12 K/mm3 (0-0.1); Basophils Percent Manual 1 % (0-1); Eosinophils Percent Manual 0 % (1-6); Lymphocytes Absolute Manual 1.81 K/mm3 (1.1-4.5); Lymphocytes Percent Manual 15 % (18-44); Monocytes Absolute Manual 0.24 K/mm3 (0.1-0.90); Monocytes Percent Manual 2 % (3-9); Neutrophils Absolute Manual 9.92 K/mm3 (1.7-7.2); Neutrophils Percent Manual 82 % (46-73); Platelet Estimate Adequate (Adequate); Total Cells Counted 100
[2021-01-02 15:28] LABS: Erythrocyte Sedimentation Rate 16 mm/hr (0-20)
== END 2021-01-02 13:23 | disposition home or self-care (01) ==
LOC: CHSLAB 13:25
PROVIDERS: PCP Internal Medicine
DX: I48.91 Unspecified atrial fibrillation (principal); M05.79 Rheumatoid arthritis with rheumatoid factor of multiple sites without organ or systems involvement; M77.9 Enthesopathy, unspecified; M79.10 Myalgia, unspecified site; Z51.81 Encounter for therapeutic drug level monitoring
CPT/HCPCS: 36415; 80053; 82550; 85025; 85652; 86038; 86430

== ENCOUNTER 2021-03-19 11:37 | Outpatient (CLI) | payer MEDICARE, SELFPAY ==
[2021-03-19 11:51] LABS: Hematocrit 43.2 % (35.0-42.0); Hemoglobin 13.4 g/dL (11.7-13.8); Mean Corpuscular Hemoglobin 31.3 pg (27.0-31.0); Mean Corpuscular Volume 100.9 fL (78.0-102.0); Mean Platelet Volume 10.7 fl (9.2-11.8); Platelet Count Result 218 K/mm3 (150-420); Red Blood Count 4.28 M/mm3 (4.20-5.40); Red Cell Distribution Width 13.7 % (11.6-14.4); White Blood Count 12.4 K/mm3 (4.8-10.8)
[2021-03-19 11:56] LABS: Creatinine Urine 118.55 mg/dL (40-278); Total Protein Urine Random 12.9 mg/dL (0.0-11.9); Ur Ttl Prot Creatinine Ratio 0.11 mg/mg (0-0.20)
[2021-03-19 12:32] LABS: Total Cells Counted 100
[2021-03-19 12:33] LABS: Band Neutrophils Percent 1 % (0-6); Lymphocytes Absolute Manual 1.36 K/mm3 (1.1-4.5); Lymphocytes Percent Manual 11 % (18-44); Metamyelocytes Percent 1 %; Monocytes Absolute Manual 0.99 K/mm3 (0.1-0.90); Monocytes Percent Manual 8 % (3-9); Myelocytes Percent 1 %; Neutrophils Absolute Manual 9.79 K/mm3 (1.7-7.2); Neutrophils Percent Manual 78 % (46-73); Platelet Estimate Adequate (Adequate)
[2021-03-19 12:54] LABS: Albumin Level 3.8 g/dL (3.4-5.0); Anion Gap 7 mmol/L (8-16); Blood Urea Nitrogen 30 mg/dL (7-18); Calcium 9.5 mg/dL (8.5-10.1); Carbon Dioxide 30 mmol/L (21-32); Chloride 104 mmol/L (98-108); Estimated Glomerular Filt Rate 31; Glucose 84 mg/dL (70-99); Osmolality Calculated 297 mOsm/kg (285-295); Phosphorus 3.2 mg/dL (2.6-4.7); Potassium 4.6 mmol/L (3.5-5.1); Sodium 141 mmol/L (136-145)
[2021-03-22 11:14] LABS: Parathyroid Intact 164 pg/mL (14-64)
== END 2021-03-19 11:38 | disposition home or self-care (01) ==
LOC: CHSLAB 11:39
PROVIDERS: PCP Internal Medicine; Visit Provider Internal Medicine Nephrology
DX: N18.32 Chronic kidney disease, stage 3b (principal)
CPT/HCPCS: 36415; 80069; 82570; 83970; 84156; 85025

== ENCOUNTER 2021-04-16 13:38 | Outpatient (CLI) | payer MEDICARE, SELFPAY | END 2021-04-16 13:39 | disposition home or self-care (01) | PROVIDERS: PCP Internal Medicine; Visit Provider Specialist | DX: C44.622 Squamous cell carcinoma of skin of right upper limb, including shoulder (principal) | CPT/HCPCS: 88305 ==

== ENCOUNTER 2021-04-24 14:37 | Outpatient (CLI) | payer MEDICARE, SELFPAY ==
[2021-04-24 16:02] LABS: Influenza A QL RT-PCR Negative (Negative); Influenza B QL RT-PCR Negative (Negative); SARS-CoV-2 RNA PCR Positive (Negative)
== END 2021-04-24 14:38 | disposition home or self-care (01) ==
LOC: CHSLAB 14:39
PROVIDERS: PCP Internal Medicine; Visit Provider Internal Medicine
DX: U07.1 COVID-19 (principal); J06.9 Acute upper respiratory infection, unspecified
CPT/HCPCS: 87502; C9803; U0003; U0005

== ENCOUNTER 2021-06-18 13:39 | Outpatient (CLI) | payer MEDICARE, SELFPAY ==
[2021-06-18 13:52] LABS: Basophils Absolute Auto 0.08 K/mm3 (0.00-0.10); Basophils Percent Auto 0.8 % (0.0-1.0); Eosinophils Absolute Auto 0.03 K/mm3 (0.02-0.50); Eosinophils Percent Auto 0.3 % (1.0-6.0); Hematocrit 41.3 % (35.0-42.0); Hemoglobin 13.3 g/dL (11.7-13.8); Immature Granulocyte Absolute 0.22 K/mm3 (0.00-0.00); Immature Granulocyte Percent A 2.1 % (0.0-0.0); Lymphocytes Absolute Auto 1.13 K/mm3 (1.10-4.50); Lymphocytes Percent Auto 10.7 % (18.0-42.0); Mean Corpuscular HGB Conc 32.2 g/dL (32.0-36.0); Mean Corpuscular Volume 99.5 fL (78.0-102.0); Mean Platelet Volume 11.1 fl (9.2-11.8); Monocytes Absolute Auto 0.35 K/mm3 (0.10-0.90); Monocytes Percent Auto 3.3 % (2.0-11.0); Neutrophils Absolute Auto 8.8 K/mm3 (1.7-7.2); Neutrophils Percent Auto 82.8 % (50.0-70.0); Platelet Count Result 208 K/mm3 (150-420); Red Blood Count 4.15 M/mm3 (4.20-5.40); Red Cell Distribution Width 13.3 % (11.6-14.4); White Blood Count 10.6 K/mm3 (4.8-10.8)
[2021-06-18 14:30] LABS: Anion Gap 11 mmol/L (8-16); Blood Urea Nitrogen 25 mg/dL (7-18); Calcium 9.5 mg/dL (8.5-10.1); Carbon Dioxide 27 mmol/L (21-32); Chloride 104 mmol/L (98-108); Estimated Glomerular Filt Rate 32; Glucose 103 mg/dL (70-99); Osmolality Calculated 298 mOsm/kg (285-295); Potassium 4.8 mmol/L (3.5-5.1); Sodium 142 mmol/L (136-145)
== END 2021-06-18 13:40 | disposition home or self-care (01) ==
PROVIDERS: PCP Internal Medicine; Visit Provider Internal Medicine Hematology & Oncology
DX: D64.9 Anemia, unspecified (principal)
CPT/HCPCS: 36415; 80048; 85025

== ENCOUNTER 2021-08-14 11:57 | Emergency (ER) | payer MEDICARE, SELFPAY ==
[2021-08-14] VITALS (18 sets, daily range): BP systolic 128–140; BP diastolic 60–65; PULSE 90–111; RESP 14–25; TEMP 36.8–36.9; O2SAT 91–100
--- NOTE | ~2021-08-14 | XR_ITS ---
EXAMINATION: XR chest 1V portable EXAM DATE: 08/14/2021 13:52 INDICATION: Leukocytosis, N/D, MARIE TECHNIQUE: Portable AP frontal chest x-ray was obtained. Comparison is made to prior examination from 11/01/2020. FINDINGS: The lungs are hyperinflated which can be seen with chronic obstructive pulmonary disease (a clinical diagnosis of functional impairment), but is not diagnostic of it. Scattered apical postinfe ctious residua unchanged. No confluent consolidation, pneumothorax or pleural effusion suspected. Car diomediastinal silhouette is normal. There are no osseous abnormalities identified. IMPRESSION: Chronic hyperinflation. Reviewed, dictated and finalized at location A. IMPRESSION: Chronic hyperinflation.
--- NOTE | ~2021-08-14 | CT_ITS ---
EXAMINATION: CT abdomen pelvis w con DATE: 08/14/2021 13:49 INDICATION: Nausea. Diarrhea. TECHNIQUE: Computed tomography (CT) of the abdomen and pelvis was performed with 100 mL Omnipaque 350 intravenous contrast. Automated exposure control and iterative reconstruction technique were employe d. The dose-length product was 344.90 mGy-cm. COMPARISON: None. FINDINGS: The visualized portions of the lung bases demonstrate mild atelectasis. No pleural effusion . The heart size is normal. No pericardial effusion. There is a moderate-sized sliding hiatal hernia. The liver, gallbladder, spleen, pancreas, and adrenal glands are normal. There is cortical thinning of the kidneys. There is diverticulosis of the colon without evidence of diverticulitis. There are no dilated loops of bowel. The appendix is not visualized. There are no pathologically enlarged lymph n odes. There is no free intraperitoneal fluid. There is severe lower lumbar spondylosis. IMPRESSION: 1. Moderate-sized sliding hiatal hernia. Reviewed, dictated and finalized at location B.
--- NOTE | 2021-08-14 12:44 | ED.NAVMDI ---
HPI - Nausea/Vomiting/Diarrhea General Chief complaint: Nausea/Vomiting/Diarrhea Stated complaint: FEELING SICK Time Seen by Provider: 08/14/21 11:59 Source: patient and RN notes reviewed Mode of arrival: ambulatory Limitations: no limitations History of Present Illness MD elicited complaint: nausea and diarrhea Pertinent past history: other (colitis) Onset (ago): hour(s) (10) Description of diarrhea: watery Associated nausea: Yes Associated abdominal pain: No Location of pain: none Pain consistency: constant Severity: mild Pain scale (0-10): 2 Quality: cramping, aching and dull Exacerbating factors: none Relieving factors: none Context: anticoagulant use Associated symptoms: denies other symptoms, loss of appetite, bloating and other Treatment prior to arrival: none Related Data Home Medications Medication Instructions Recorded Confirmed alprazolam 0.5 mg PO HS 10/06/19 08/14/21 ascorbic acid (vitamin C) 500 mg PO DAILY 10/06/19 08/14/21 atorvastatin 20 mg PO QAM 10/06/19 08/14/21 calcium citrate-vitamin D3 1 tablet PO DAILY 10/06/19 08/14/21 [Citracal Regular] magnesium oxide 400 mg PO BID 10/06/19 08/14/21 omeprazole 40 mg PO DAILY 10/06/19 08/14/21 prednisone 5 mg PO EVERY OTHER DAY 10/06/19 08/14/21 prednisone 10 mg PO EVERY OTHER DAY 10/06/19 08/14/21 Xarelto 15 mg PO DAILY 04/29/20 08/14/21 leflunomide 10 mg PO DAILY 04/29/20 08/14/21 spironolactone 25 mg PO DAILY 06/26/20 08/14/21 ferrous sulfate [Iron (ferrous 325 mg PO TID 09/28/20 08/14/21 sulfate)] Allergies Allergy/AdvReac Type Severity Reaction Status Date / Time Sulfa (Sulfonamide AdvReac Unknown Nausea Verified 08/14/21 12:23 Antibiotics) oxycodone AdvReac Nausea and Verified 08/14/21 12:23 Vomiting Review of Systems Review of Systems: All systems reviewed & are unremarkable except as noted in HPI and below PMFSH Past Medical History Medical History Anxiety Atrial fibrillation Paroxysmal Atrial flutter (08/14/17) Blister of toe (02/24/18) Diarrhea (10/22/17) Effusion, right knee GERD (gastroesophageal reflux disease) H/O supraventricular tachycardia Hemarthrosis of right knee Hyperlipidemia Hypertension Primary osteoarthritis of right knee Primary osteoarthritis of right wrist Rheumatoid arthritis Shoulder pain (08/14/17) Wrist pain (03/09/18) Surgical History Surgical History H/O cataract extraction H/O dilation and curettage A couple times History of tonsillectomy History of tubal ligation Family History Family History Father Carcinoma of colon Mother Family history of congestive heart failure Other Family history of malignant neoplasm Hypertension Social History Social History Social History: 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 She is and lives with her . She desires ever is a durable power rib stiffener and heel dipper for healthcare. Patient desires to be a full code. She has 3 children. She is to smoke but quit when she is around 59 years old. No alcohol marijuana or illicit drugs. Smoking packs per day: 1 Smoking cigarettes per day: 20.0 Years smoked: 30 Smoking pack-years: 30.00 Smoking status: Former smoker Tobacco type: cigarettes Second hand tobacco smoke exposure: No Smoking end date: 10/31/94 Additional smoking assessment comments: STATES 1PK/DAY/30YRS QUIT 1993 Alcohol intake: current Drinks per week: 6 Substance use: never Substance use type: does not use Gender identity (if verbalized by the patient): Female Sexual Orientation (if Verbalized by the Patient): Straight or Heterosexual Spiritual care concerns: No Exam Const: General: no acute distress and alert Nutritional
[2021-08-14] MEDS: SODIUM CHLORIDE 0.9% IV 1,000 ML 999 ML IV CONT (12:51)
[2021-08-14] MEDS: ONDANSETRON INJ 4 MG/2 ML VIAL IV PUSH (12:55)
[2021-08-14] MEDS: PANTOPRAZOLE SODIUM IV 40 MG VIAL IV PUSH (12:55)
[2021-08-14 13:08] LABS: Basophils Absolute Auto 0.06 K/mm3 (0.00-0.10); Basophils Percent Auto 0.4 % (0.0-1.0); Eosinophils Absolute Auto 0.05 K/mm3 (0.02-0.50); Eosinophils Percent Auto 0.3 % (1.0-6.0); Hematocrit 40.1 % (35.0-42.0); Hemoglobin 12.5 g/dL (11.7-13.8); Immature Granulocyte Absolute 0.21 K/mm3 (0.00-0.00); Immature Granulocyte Percent A 1.3 % (0.0-0.0); Lymphocytes Absolute Auto 1.03 K/mm3 (1.10-4.50); Lymphocytes Percent Auto 6.2 % (18.0-42.0); Mean Corpuscular HGB Conc 31.2 g/dL (32.0-36.0); Mean Corpuscular Hemoglobin 31.3 pg (27.0-31.0); Mean Corpuscular Volume 100.3 fL (78.0-102.0); Mean Platelet Volume 11.5 fl (9.2-11.8); Monocytes Absolute Auto 1.02 K/mm3 (0.10-0.90); Monocytes Percent Auto 6.1 % (2.0-11.0); Neutrophils Absolute Auto 14.3 K/mm3 (1.7-7.2); Neutrophils Percent Auto 85.7 % (50.0-70.0); Platelet Count Result 120 K/mm3 (150-420); Red Cell Distribution Width 13.2 % (11.6-14.4); White Blood Count 16.7 K/mm3 (4.8-10.8)
[2021-08-14 13:23] LABS: Alanine Aminotransferase 39 U/L (14-59); Albumin Level 3.3 g/dL (3.4-5.0); Alkaline Phosphatase 89 U/L (46-116); Anion Gap 6 mmol/L (8-16); Aspartate Amino Transferase 27 U/L (15-37); Bilirubin,Total 0.8 mg/dL (0.00-1.00); Blood Urea Nitrogen 23 mg/dL (7-18); Calcium 9.2 mg/dL (8.5-10.1); Carbon Dioxide 29 mmol/L (21-32); Chloride 103 mmol/L (98-108); Estimated CRCL calculation 30 ml/min; Estimated Glomerular Filt Rate 34; Glucose 94 mg/dL (70-99); Osmolality Calculated 289 mOsm/kg (285-295); Potassium 4.2 mmol/L (3.5-5.1); Sodium 138 mmol/L (136-145); Total Protein 6.1 g/dL (6.4-8.2)
[2021-08-14 13:30] LABS: Lipase 151 U/L (73-393)
[2021-08-14 14:03] LABS: Appearance Urine Clear (Clear); Bilirubin Urine Negative (Negative); Color Urine Light Yellow (Yellow); Glucose Urine UA Negative (Negative); Ketones Urine Negative (Negative); Leukocyte Esterase Ur Trace LEU/UL (Negative); Nitrate Urine Negative (Negative); Protein Urine Negative (Negative); Urobilinogen Urine 0.2 mg/dL (0.2-1.0)
[2021-08-14 14:16] LABS: Add Urine Microscopic? YES; Blood Urine Trace-Intact (Negative); RBC Urine 0-2 /hpf (0-2)
[2021-08-14 14:17] LABS: Bacteria Urine Trace /hpf; Squamous Epithelial Cell Urine Occasional /hpf (Few); WBC Urine 0-3 /hpf (0-3)
== END 2021-08-14 16:27 | disposition home or self-care (01) ==
PROVIDERS: Emergency Provider Emergency Medicine; PCP Internal Medicine
DX: K52.9 Noninfective gastroenteritis and colitis, unspecified (principal); N39.0 Urinary tract infection, site not specified; K21.9 Gastro-esophageal reflux disease without esophagitis; E78.5 Hyperlipidemia, unspecified; I10 Essential (primary) hypertension; Z87.891 Personal history of nicotine dependence
CPT/HCPCS: 36415; 71045; 74177; 80053; 81001; 83690; 85025; 87040; 96361; 96365; 96375; 99284; C9113; J0696; J2405; J7030; Q9967

== ENCOUNTER 2021-09-19 13:39 | Outpatient (CLI) | payer MEDICARE, SELFPAY ==
[2021-09-19 14:05] LABS: Creatinine Urine 57.92 mg/dL (40-278); Total Protein Urine Random < 6.0 mg/dL (0.0-11.9)
[2021-09-19 14:23] LABS: Albumin Level 3.8 g/dL (3.4-5.0); Anion Gap 7 mmol/L (8-16); Blood Urea Nitrogen 25 mg/dL (7-18); Calcium 9.2 mg/dL (8.5-10.1); Carbon Dioxide 28 mmol/L (21-32); Chloride 104 mmol/L (98-108); Estimated Glomerular Filt Rate 31; Glucose 105 mg/dL (70-99); Osmolality Calculated 292 mOsm/kg (285-295); Phosphorus 3.6 mg/dL (2.6-4.7); Potassium 4.4 mmol/L (3.5-5.1); Sodium 139 mmol/L (136-145)
[2021-09-23 09:53] LABS: Parathyroid Intact 157 pg/mL (14-64)
[2021-09-24 20:57] LABS: Vitamin D 25 Hydroxy 32 ng/mL (30-100)
== END 2021-09-19 13:40 | disposition home or self-care (01) ==
LOC: CHSLAB 13:43
PROVIDERS: PCP Internal Medicine; Visit Provider Internal Medicine Nephrology
DX: N18.32 Chronic kidney disease, stage 3b (principal); E21.1 Secondary hyperparathyroidism, not elsewhere classified
CPT/HCPCS: 36415; 80069; 82306; 82570; 83970; 84156

== ENCOUNTER 2021-11-25 09:56 | Outpatient (CLI) | payer MEDICARE, SELFPAY ==
--- NOTE | ~2021-11-25 | XR_ITS ---
XR foot RT min 3V DATE: 11/25/2021 10:28 INDICATION: Right foot injury, pain, swelling TECHNIQUE: 3 views COMPARISON: None FINDINGS: There is minimal plantar calcaneal enthesopathy. Mild osteoarthritis at first metatarsopha langeal joint. No fracture or dislocation, periosteal reaction or bone destruction. IMPRESSION: Minimal plantar calcaneal enthesopathy Mild osteoarthritis at first metatarsophalangeal joint Reviewed, dictated and finalized at location B.
[2021-11-25 10:26] LABS: Basophils Absolute Auto 0.09 K/mm3 (0.00-0.10); Eosinophils Absolute Auto 0.16 K/mm3 (0.02-0.50); Eosinophils Percent Auto 1.7 % (1.0-6.0); Hematocrit 42.2 % (35.0-42.0); Hemoglobin 13.4 g/dL (11.7-13.8); Immature Granulocyte Absolute 0.24 K/mm3 (0.00-0.00); Immature Granulocyte Percent A 2.6 % (0.0-0.0); Lymphocytes Absolute Auto 1.68 K/mm3 (1.10-4.50); Lymphocytes Percent Auto 18.2 % (18.0-42.0); Mean Corpuscular HGB Conc 31.8 g/dL (32.0-36.0); Mean Corpuscular Hemoglobin 31.9 pg (27.0-31.0); Mean Corpuscular Volume 100.5 fL (78.0-102.0); Mean Platelet Volume 11.6 fl (9.2-11.8); Monocytes Absolute Auto 0.74 K/mm3 (0.10-0.90); Neutrophils Absolute Auto 6.3 K/mm3 (1.7-7.2); Neutrophils Percent Auto 68.5 % (50.0-70.0); Platelet Count Result 190 K/mm3 (150-420); Red Cell Distribution Width 13.5 % (11.6-14.4); White Blood Count 9.2 K/mm3 (4.8-10.8)
[2021-11-25 10:40] LABS: Alanine Aminotransferase 34 U/L (14-59); Albumin Level 3.6 g/dL (3.4-5.0); Alkaline Phosphatase 96 U/L (46-116); Anion Gap 7 mmol/L (8-16); Aspartate Amino Transferase 26 U/L (15-37); Bilirubin,Total 0.6 mg/dL (0.00-1.00); Blood Urea Nitrogen 24 mg/dL (7-18); CRP < 0.5 mg/dL (0.0-0.9); Calcium 9.6 mg/dL (8.5-10.1); Carbon Dioxide 30 mmol/L (21-32); Chloride 105 mmol/L (98-108); Estimated Glomerular Filt Rate 30; Glucose 89 mg/dL (70-99); Osmolality Calculated 297 mOsm/kg (285-295); Potassium 3.7 mmol/L (3.5-5.1); Sodium 142 mmol/L (136-145); Total Protein 6.6 g/dL (6.4-8.2); Uric Acid 5.3 mg/dL (2.6-6.0)
== END 2021-11-25 09:57 | disposition home or self-care (01) ==
LOC: CHSIMG 09:59
PROVIDERS: PCP Internal Medicine; Visit Provider Nurse Practitioner Family
DX: M79.671 Pain in right foot (principal); M79.89 Other specified soft tissue disorders; S99.921A Unspecified injury of right foot, initial encounter
CPT/HCPCS: 36415; 73630; 80053; 84550; 85025; 86140

== ENCOUNTER 2021-12-23 11:54 | Outpatient (CLI) | payer MEDICARE, SELFPAY ==
[2021-12-23 12:18] LABS: Hematocrit 41.7 % (35.0-42.0); Hemoglobin 13.5 g/dL (11.7-13.8); Mean Corpuscular HGB Conc 32.4 g/dL (32.0-36.0); Mean Corpuscular Hemoglobin 32.1 pg (27.0-31.0); Mean Platelet Volume 11.7 fl (9.2-11.8); Platelet Count Result 178 K/mm3 (150-420); Red Blood Count 4.21 M/mm3 (4.20-5.40); Red Cell Distribution Width 13.5 % (11.6-14.4); White Blood Count 9.6 K/mm3 (4.8-10.8)
[2021-12-23 12:32] LABS: Alanine Aminotransferase 33 U/L (14-59); Albumin Level 3.6 g/dL (3.4-5.0); Alkaline Phosphatase 73 U/L (46-116); Anion Gap 7 mmol/L (8-16); Aspartate Amino Transferase 34 U/L (15-37); Bilirubin,Total 0.5 mg/dL (0.00-1.00); Blood Urea Nitrogen 22 mg/dL (7-18); Calcium 9.5 mg/dL (8.5-10.1); Carbon Dioxide 27 mmol/L (21-32); Chloride 103 mmol/L (98-108); Creatine Kinase 40 U/L (26-192); Estimated Glomerular Filt Rate 31; Glucose 94 mg/dL (70-99); Osmolality Calculated 287 mOsm/kg (285-295); Potassium 4.1 mmol/L (3.5-5.1); Sodium 137 mmol/L (136-145); Total Protein 6.4 g/dL (6.4-8.2); Uric Acid 5.8 mg/dL (2.6-6.0)
[2021-12-23 12:40] LABS: Band Neutrophils Percent 0 % (0-6); Eosinophils Absolute Manual 0.09 K/mm3 (0.02-0.5); Eosinophils Percent Manual 1 % (1-6); Lymphocytes Absolute Manual 1.92 K/mm3 (1.1-4.5); Lymphocytes Percent Manual 20 % (18-44); Monocytes Absolute Manual 0.67 K/mm3 (0.1-0.90); Monocytes Percent Manual 7 % (3-9); Neutrophils Absolute Manual 6.91 K/mm3 (1.7-7.2); Neutrophils Percent Manual 72 % (46-73); Platelet Estimate Adequate (Adequate); Total Cells Counted 100
[2021-12-23 12:47] LABS: Rheumatoid Factor Screen Negative (Negative)
[2021-12-23 13:22] LABS: Erythrocyte Sedimentation Rate 8 mm/hr (0-20)
== END 2021-12-23 11:55 | disposition home or self-care (01) ==
LOC: CHSLAB 12:00
PROVIDERS: PCP Internal Medicine; Visit Provider Internal Medicine Hematology & Oncology
DX: D64.9 Anemia, unspecified (principal); M05.79 Rheumatoid arthritis with rheumatoid factor of multiple sites without organ or systems involvement; M06.4 Inflammatory polyarthropathy; R53.83 Other fatigue; Z51.81 Encounter for therapeutic drug level monitoring
CPT/HCPCS: 36415; 80053; 82550; 84550; 85025; 85652; 86038; 86039; 86430

== ENCOUNTER 2022-01-21 14:08 | Emergency (ER) | payer MEDICARE, SELFPAY ==
[2022-01-21] VITALS (21 sets, daily range): BP systolic 109–128; BP diastolic 61–86; PULSE 96–116; RESP 18–24; TEMP 36.8–37.2; O2SAT 93–99
--- NOTE | ~2022-01-21 | CT_ITS ---
EXAMINATION: CT abdomen pelvis wo con DATE: 01/21/2022 16:03 INDICATION: Left lower quadrant abdominal pain, nausea and fever TECHNIQUE: Computed tomography (CT) of the abdomen and pelvis was performed without intravenous contr ast. The dose Leonardo The dose-length product was 341.42 mGy-cm. COMPARISON: None FINDINGS: Chronic mild linear and groundglass opacities at the right lung base and favor atelectasis/scarring o oleksandr pulmonary edema or pneumonia. Calcified right lower lobe nodule consistent with old granulomatous disease. Heart size is normal. No pericardial or pleural effusion. Small sliding-type hiatal hernia with small amount of fluid in the distal esophagus. Small splenic calcification consistent with old g ranulomatous disease. A couple ill-defined 1-1.5 cm low-attenuation lesions in segment IVb of the dave er. These appear larger and more conspicuous than on the prior postcontrast study. Gallbladder, pancr eas, bilateral adrenal glands and kidneys are normal. There is mild colonic diverticulosis with a sig moid predominance. Couple tiny foci of likely extraluminal gas with prominent surrounding inflammator y stranding along the mesentery at the mid sigmoid colon most consistent with diverticulitis with cristin roperforation. No abscess or more remote free intraperitoneal gas. Bowels are otherwise unremarkable with no obstruction. Bladder, uterus and bilateral adnexa are unremarkable. Mild thoracolumbar levocu rvature. Severe spondylosis at the lumbosacral junction with mild to moderate more cephalad thoracolu mbar spondylosis. IMPRESSION: 1. Sigmoid diverticulitis with microperforation but without abscess. 2. Couple ill-defined 1-1.5 cm low-attenuation hepatic lesions which in the absence of known history of malignancy most likely represent either focal fat or hemangiomas but would consider follow-up with pre and postcontrast MRI. Reviewed, dictated and finalized at location A. IMPRESSION: 1. Sigmoid diverticulitis with microperforation but without abscess. 2. Couple ill-defined 1-1.5 cm low-attenuation hepatic lesions which in the abs ence of known history of malignancy most likely represent either focal fat or h emangiomas but would consider follow-up with pre and postcontrast MRI.
--- NOTE | 2022-01-21 14:17 | ED.ABDPAIN ---
HPI - Abdominal Pain General Chief Complaint: Abdominal Pain Stated Complaint: NAUSEA, ABDOMINAL PAIN Time Seen by Provider: 01/21/22 14:16 Source: patient, family and RN notes reviewed Mode of arrival: ambulatory Limitations: no limitations History of Present Illness MD elicited complaint: abdominal pain Pertinent past history: none Onset (ago): day(s) (1) Pain Consistency: constant Location: pelvis Severity: moderate Quality: aching Radiation: none Migration to: no migration Exacerbating factors: nothing Relieving factors: nothing Associated symptoms: nausea and fever (100.9) Related Data Home Medications Medication Instructions Recorded Confirmed alprazolam 0.5 mg tablet 0.5 mg PO HS 10/06/19 01/21/22 ascorbic acid (vitamin C) 500 mg 500 mg PO DAILY 10/06/19 01/21/22 tablet atorvastatin 20 mg tablet 20 mg PO QAM 10/06/19 01/21/22 calcium citrate 250 mg 1 tablet PO DAILY 10/06/19 01/21/22 calcium-vitamin D3 5 mcg (200 unit) tablet (Citracal Regular) magnesium oxide 400 mg PO BID 10/06/19 01/21/22 omeprazole 40 mg capsule,delayed 40 mg PO DAILY 10/06/19 01/21/22 release prednisone 10 mg tablet 10 mg PO EVERY OTHER DAY 10/06/19 01/21/22 prednisone 5 mg tablet 5 mg PO EVERY OTHER DAY 10/06/19 01/21/22 leflunomide 10 mg tablet 10 mg PO DAILY 04/29/20 01/21/22 rivaroxaban 15 mg tablet (Xarelto) 15 mg PO DAILY 04/29/20 01/21/22 spironolactone 25 mg tablet 25 mg PO DAILY 06/26/20 01/21/22 ferrous sulfate 325 mg (65 mg 325 mg PO TID 09/28/20 01/21/22 iron) tablet (Iron (ferrous sulfate)) Allergies Allergy/AdvReac Type Severity Reaction Status Date / Time Sulfa (Sulfonamide AdvReac Unknown Nausea Verified 01/21/22 14:27 Antibiotics) oxycodone AdvReac Nausea and Verified 01/21/22 14:27 Vomiting Review of Systems Review of Systems: All systems reviewed & are unremarkable except as noted in HPI and below Constitutional: Constitutional: Denies chills ENT: Denies nasal congestion and Denies sore throat Gastrointestinal: Gastrointestinal: Denies diarrhea Musculoskeletal: Musculoskeletal: Denies myalgias Neurologic: Denies headache(s) [facility] Past Medical History Medical History Anxiety Atrial fibrillation Paroxysmal Atrial flutter (08/14/17) Blister of toe (02/24/18) Diarrhea (10/22/17) Effusion, right knee GERD (gastroesophageal reflux disease) H/O supraventricular tachycardia Hemarthrosis of right knee Hyperlipidemia Hypertension Primary osteoarthritis of right knee Primary osteoarthritis of right wrist Rheumatoid arthritis Shoulder pain (08/14/17) Wrist pain (03/09/18) Surgical History Surgical History H/O cataract extraction H/O dilation and curettage A couple times History of tonsillectomy History of tubal ligation Family History Family History Father Carcinoma of colon Mother Family history of congestive heart failure Other Family history of malignant neoplasm Hypertension Social History Social History Social History: 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 She is and lives with her . She desires ever is a durable power criminal defense attorney for healthcare. Patient desires to be a full code. She has 3 children. She is to smoke but quit when she is around 59 years old. No alcohol marijuana or illicit drugs. Smoking packs per day: 1 Smoking cigarettes per day: 20.0 Years smoked: 30 Smoking pack-years: 30.00 Smoking status: Former smoker Tobacco type: cigarettes Second hand tobacco smoke exposure: No Smoking end date: 10/31/94 Additional smoking assessment comments: STATES 1PK/DAY/30YRS QUIT 1993 Alcohol intake: current Drinks per week: 6 Substance use: never Substance
[2022-01-21 15:19] LABS: Basophils Absolute Auto 0.09 K/mm3 (0.00-0.10); Basophils Percent Auto 0.5 % (0.0-1.0); Eosinophils Absolute Auto 0.08 K/mm3 (0.02-0.50); Eosinophils Percent Auto 0.5 % (1.0-6.0); Hemoglobin 14.3 g/dL (11.7-13.8); Immature Granulocyte Absolute 0.23 K/mm3 (0.00-0.00); Immature Granulocyte Percent A 1.3 % (0.0-0.0); Lymphocytes Absolute Auto 1.67 K/mm3 (1.10-4.50); Lymphocytes Percent Auto 9.7 % (18.0-42.0); Mean Corpuscular HGB Conc 32.5 g/dL (32.0-36.0); Mean Corpuscular Hemoglobin 31.8 pg (27.0-31.0); Mean Corpuscular Volume 97.8 fL (78.0-102.0); Mean Platelet Volume 11.6 fl (9.2-11.8); Monocytes Absolute Auto 1.65 K/mm3 (0.10-0.90); Monocytes Percent Auto 9.6 % (2.0-11.0); Neutrophils Absolute Auto 13.4 K/mm3 (1.7-7.2); Neutrophils Percent Auto 78.4 % (50.0-70.0); Platelet Count Result 169 K/mm3 (150-420); Red Cell Distribution Width 13.4 % (11.6-14.4); White Blood Count 17.2 K/mm3 (4.8-10.8)
[2022-01-21] MEDS: SODIUM CHLORIDE 0.9% IV 1,000 ML 999 ML IV CONT (15:20)
[2022-01-21 15:36] LABS: Alanine Aminotransferase 109 U/L (14-59); Albumin Level 3.3 g/dL (3.4-5.0); Alkaline Phosphatase 145 U/L (46-116); Anion Gap 10 mmol/L (8-16); Aspartate Amino Transferase 87 U/L (15-37); Bilirubin,Total 1.6 mg/dL (0.00-1.00); Blood Urea Nitrogen 21 mg/dL (7-18); Calcium 9.7 mg/dL (8.5-10.1); Carbon Dioxide 28 mmol/L (21-32); Chloride 100 mmol/L (98-108); Estimated CRCL calculation 28 ml/min; Estimated Glomerular Filt Rate 31; Glucose 99 mg/dL (70-99); Osmolality Calculated 289 mOsm/kg (285-295); Sodium 138 mmol/L (136-145); Total Protein 6.8 g/dL (6.4-8.2)
[2022-01-21 15:40] LABS: Lactic Acid Reflex 1.6 mmol/L (0.4-2.0)
[2022-01-21 15:51] LABS: CRP > 20.0 mg/dL (0.0-0.9)
--- NOTE | 2022-01-21 15:51 | PC.NURSE ---
Spoke with Dr Monroy regarding BUN, Cr, and eGFR. Per MD, obtain CT scan without contrast at this time.
--- NOTE | 2022-01-21 15:53 | PC.NURSE ---
pt off floor to CT scan
== END 2022-01-21 17:09 | disposition home or self-care (01) ==
PROVIDERS: Emergency Provider Emergency Medicine; PCP Internal Medicine
DX: K57.92 Diverticulitis of intestine, part unspecified, without perforation or abscess without bleeding (principal); I48.91 Unspecified atrial fibrillation; K21.9 Gastro-esophageal reflux disease without esophagitis; E78.5 Hyperlipidemia, unspecified; I10 Essential (primary) hypertension; Z87.891 Personal history of nicotine dependence
CPT/HCPCS: 36415; 74176; 80053; 83605; 85025; 86140; 96360; 99284; J7030

== ENCOUNTER 2022-01-30 11:26 | Outpatient (CLI) | payer MEDICARE, SELFPAY ==
[2022-01-30 11:44] LABS: Hematocrit 40.9 % (35.0-42.0); Hemoglobin 13.1 g/dL (11.7-13.8); Mean Corpuscular Hemoglobin 31.7 pg (27.0-31.0); Mean Platelet Volume 10.3 fl (9.2-11.8); Platelet Count Result 268 K/mm3 (150-420); Red Blood Count 4.13 M/mm3 (4.20-5.40); Red Cell Distribution Width 13.4 % (11.6-14.4); White Blood Count 12.5 K/mm3 (4.8-10.8)
[2022-01-30 12:34] LABS: Alanine Aminotransferase 35 U/L (14-59); Albumin Level 3.5 g/dL (3.4-5.0); Alkaline Phosphatase 113 U/L (46-116); Anion Gap 9 mmol/L (8-16); Aspartate Amino Transferase 28 U/L (15-37); Bilirubin,Total 0.5 mg/dL (0.00-1.00); Blood Urea Nitrogen 15 mg/dL (7-18); Calcium 9.2 mg/dL (8.5-10.1); Carbon Dioxide 26 mmol/L (21-32); Chloride 104 mmol/L (98-108); Estimated Glomerular Filt Rate 38; Glucose 97 mg/dL (70-99); Osmolality Calculated 288 mOsm/kg (285-295); Sodium 139 mmol/L (136-145); Total Protein 6.2 g/dL (6.4-8.2)
[2022-01-30 12:35] LABS: Total Cells Counted 100
[2022-01-30 12:36] LABS: Band Neutrophils Percent 2 % (0-6); Basophils Absolute Manual 0.12 K/mm3 (0-0.1); Basophils Percent Manual 1 % (0-1); Eosinophils Absolute Manual 0.12 K/mm3 (0.02-0.5); Eosinophils Percent Manual 1 % (1-6); Lymphocytes Absolute Manual 1.12 K/mm3 (1.1-4.5); Lymphocytes Percent Manual 9 % (18-44); Metamyelocytes Percent 3 %; Monocytes Absolute Manual 0.25 K/mm3 (0.1-0.90); Monocytes Percent Manual 2 % (3-9); Myelocytes Percent 1 %; Neutrophils Absolute Manual 10.37 K/mm3 (1.7-7.2); Neutrophils Percent Manual 81 % (46-73); Platelet Estimate Adequate (Adequate)
[2022-02-02 05:27] LABS: CA 19-9 108 U/mL (<34)
[2022-02-05 18:33] LABS: Alpha Fetoprotein Tumor Marker 10.3 ng/mL (<6.1)
== END 2022-01-30 11:27 | disposition home or self-care (01) ==
LOC: CHSLAB 11:31
PROVIDERS: PCP Internal Medicine; Visit Provider Internal Medicine
DX: K76.9 Liver disease, unspecified (principal); K57.92 Diverticulitis of intestine, part unspecified, without perforation or abscess without bleeding; D37.8 Neoplasm of uncertain behavior of other specified digestive organs; C7B.00 Secondary carcinoid tumors, unspecified site
CPT/HCPCS: 36415; 80053; 82105; 82378; 85025; 86301

== ENCOUNTER 2022-02-07 10:36 | Outpatient (CLI) | payer MEDICARE, SELFPAY ==
[2022-02-07 10:59] LABS: Hematocrit 41.5 % (35.0-42.0); Hemoglobin 12.9 g/dL (11.7-13.8); Mean Corpuscular HGB Conc 31.1 g/dL (32.0-36.0); Mean Corpuscular Hemoglobin 31.2 pg (27.0-31.0); Mean Corpuscular Volume 100.2 fL (78.0-102.0); Mean Platelet Volume 11.2 fl (9.2-11.8); Platelet Count Result 246 K/mm3 (150-420); Red Blood Count 4.14 M/mm3 (4.20-5.40); Red Cell Distribution Width 13.9 % (11.6-14.4); White Blood Count 10.4 K/mm3 (4.8-10.8)
[2022-02-07 11:17] LABS: Band Neutrophils Percent 1 % (0-6); Basophils Percent Manual 1 % (0-1); Eosinophils Percent Manual 1 % (1-6); Lymphocytes Absolute Manual 1.56 K/mm3 (1.1-4.5); Lymphocytes Percent Manual 15 % (18-44); Monocytes Absolute Manual 0.62 K/mm3 (0.1-0.90); Monocytes Percent Manual 6 % (3-9); Myelocytes Percent 3 %; Neutrophils Absolute Manual 7.59 K/mm3 (1.7-7.2); Neutrophils Percent Manual 72 % (46-73); Promyelocytes Percent 1 %; Total Cells Counted 100
[2022-02-07 11:18] LABS: Platelet Estimate Adequate (Adequate); Schistocytes None Seen (NORMAL)
[2022-02-07 12:31] LABS: Alanine Aminotransferase 30 U/L (14-59); Albumin Level 3.4 g/dL (3.4-5.0); Alkaline Phosphatase 73 U/L (46-116); Anion Gap 8 mmol/L (8-16); Aspartate Amino Transferase 25 U/L (15-37); Bilirubin,Total 0.5 mg/dL (0.00-1.00); Blood Urea Nitrogen 15 mg/dL (7-18); Calcium 9.4 mg/dL (8.5-10.1); Carbon Dioxide 29 mmol/L (21-32); Chloride 105 mmol/L (98-108); Estimated Glomerular Filt Rate 37; Glucose 82 mg/dL (70-99); Osmolality Calculated 293 mOsm/kg (285-295); Potassium 4.2 mmol/L (3.5-5.1); Sodium 142 mmol/L (136-145); Total Protein 6.1 g/dL (6.4-8.2)
== END 2022-02-07 10:37 | disposition home or self-care (01) ==
LOC: CHSLAB 10:38
PROVIDERS: PCP Internal Medicine; Visit Provider Internal Medicine
DX: D72.829 Elevated white blood cell count, unspecified (principal)
CPT/HCPCS: 36415; 80053; 85025

== ENCOUNTER 2022-02-15 09:12 | Outpatient (CLI) | payer MEDICARE, SELFPAY ==
--- NOTE | ~2022-02-15 | MR_ITS ---
EXAMINATION: MR abdomen wo/w con DATE: 02/15/2022 11:50 INDICATION: Liver mass. TECHNIQUE: Magnetic resonance imaging (MRI) of the abdomen was performed without and with 15 mL Multi Delores intravenous contrast. COMPARISON: CT abdomen and pelvis 01/21/2022 FINDINGS: The liver demonstrates focal steatosis adjacent to ligamentum teres correlating with the CT finding. The gallbladder, spleen, pancreas, adrenal glands, and kidneys kidney are normal. There is a 5 mm cys t in right kidney. There are no dilated loops of bowel. There is a small sliding hiatal hernia. There are no pathologically enlarged lymph nodes. There is no free intraperitoneal fluid. IMPRESSION: 1. Focal steatosis in the liver correlating with the CT findings. Reviewed, dictated and finalized at location A.
== END 2022-02-15 09:13 | disposition home or self-care (01) ==
PROVIDERS: PCP Internal Medicine; Visit Provider Internal Medicine
DX: K76.9 Liver disease, unspecified (principal)
CPT/HCPCS: 74183; A9577

== ENCOUNTER 2022-02-19 11:28 | Outpatient (CLI) | payer MEDICARE, SELFPAY | END 2022-02-19 11:29 | disposition home or self-care (01) | LOC: CHSLAB 11:30 | PROVIDERS: PCP Internal Medicine; Visit Provider Internal Medicine | DX: R19.7 Diarrhea, unspecified (principal) | CPT/HCPCS: 87324 ==

== ENCOUNTER 2022-02-20 10:59 | Outpatient (CLI) | payer MEDICARE, SELFPAY ==
[2022-02-20 11:15] LABS: Basophils Absolute Auto 0.09 K/mm3 (0.00-0.10); Basophils Percent Auto 1.1 % (0.0-1.0); Eosinophils Absolute Auto 0.18 K/mm3 (0.02-0.50); Eosinophils Percent Auto 2.2 % (1.0-6.0); Hemoglobin 13.1 g/dL (11.7-13.8); Immature Granulocyte Absolute 0.19 K/mm3 (0.00-0.00); Immature Granulocyte Percent A 2.3 % (0.0-0.0); Lymphocytes Absolute Auto 1.19 K/mm3 (1.10-4.50); Lymphocytes Percent Auto 14.5 % (18.0-42.0); Mean Corpuscular Hemoglobin 31.6 pg (27.0-31.0); Mean Corpuscular Volume 98.8 fL (78.0-102.0); Mean Platelet Volume 11.8 fl (9.2-11.8); Monocytes Absolute Auto 0.65 K/mm3 (0.10-0.90); Monocytes Percent Auto 7.9 % (2.0-11.0); Neutrophils Absolute Auto 5.9 K/mm3 (1.7-7.2); Platelet Count Result 185 K/mm3 (150-420); Red Blood Count 4.15 M/mm3 (4.20-5.40); Red Cell Distribution Width 13.9 % (11.6-14.4); White Blood Count 8.2 K/mm3 (4.8-10.8)
[2022-02-20 12:04] LABS: Alanine Aminotransferase 22 U/L (14-59); Albumin Level 3.6 g/dL (3.4-5.0); Alkaline Phosphatase 65 U/L (46-116); Anion Gap 5 mmol/L (8-16); Aspartate Amino Transferase 24 U/L (15-37); Bilirubin,Total 0.4 mg/dL (0.00-1.00); Blood Urea Nitrogen 16 mg/dL (7-18); Calcium 9.8 mg/dL (8.5-10.1); Carbon Dioxide 30 mmol/L (21-32); Chloride 102 mmol/L (98-108); Estimated Glomerular Filt Rate 33; Glucose 90 mg/dL (70-99); Osmolality Calculated 285 mOsm/kg (285-295); Potassium 4.6 mmol/L (3.5-5.1); Sodium 137 mmol/L (136-145); Total Protein 6.5 g/dL (6.4-8.2)
== END 2022-02-20 11:00 | disposition home or self-care (01) ==
LOC: CHSLAB 11:02
PROVIDERS: PCP Internal Medicine; Visit Provider Internal Medicine
DX: R19.7 Diarrhea, unspecified (principal)
CPT/HCPCS: 36415; 80053; 85025

== ENCOUNTER 2022-03-19 14:06 | Outpatient (CLI) | payer MEDICARE, SELFPAY ==
[2022-03-19 14:41] LABS: Basophils Absolute Auto 0.14 K/mm3 (0.00-0.10); Basophils Percent Auto 1.7 % (0.0-1.0); Eosinophils Absolute Auto 0.09 K/mm3 (0.02-0.50); Eosinophils Percent Auto 1.1 % (1.0-6.0); Hematocrit 40.4 % (35.0-42.0); Hemoglobin 12.9 g/dL (11.7-13.8); Immature Granulocyte Percent A 4.9 % (0.0-0.0); Lymphocytes Percent Auto 17.2 % (18.0-42.0); Mean Corpuscular HGB Conc 31.9 g/dL (32.0-36.0); Mean Corpuscular Hemoglobin 31.9 pg (27.0-31.0); Mean Corpuscular Volume 99.8 fL (78.0-102.0); Mean Platelet Volume 11.6 fl (9.2-11.8); Monocytes Absolute Auto 0.75 K/mm3 (0.10-0.90); Monocytes Percent Auto 9.2 % (2.0-11.0); Neutrophils Absolute Auto 5.4 K/mm3 (1.7-7.2); Neutrophils Percent Auto 65.9 % (50.0-70.0); Platelet Count Result 243 K/mm3 (150-420); Red Blood Count 4.05 M/mm3 (4.20-5.40); Red Cell Distribution Width 13.8 % (11.6-14.4); White Blood Count 8.2 K/mm3 (4.8-10.8)
[2022-03-19 14:44] LABS: Creatinine Urine 49.67 mg/dL (40-278)
[2022-03-19 14:54] LABS: Total Protein Urine Random < 7.0 mg/dL (0.0-11.9); Ur Ttl Prot Creatinine Ratio 0.14 mg/mg (0-0.20)
[2022-03-19 14:58] LABS: Albumin Level 3.4 g/dL (3.4-5.0); Anion Gap 10 mmol/L (8-16); Blood Urea Nitrogen 18 mg/dL (7-18); Calcium 9.2 mg/dL (8.5-10.1); Carbon Dioxide 25 mmol/L (21-32); Chloride 103 mmol/L (98-108); Estimated Glomerular Filt Rate 33; Glucose 116 mg/dL (70-99); Osmolality Calculated 288 mOsm/kg (285-295); Phosphorus 3.3 mg/dL (2.6-4.7); Potassium 4.5 mmol/L (3.5-5.1); Sodium 138 mmol/L (136-145)
[2022-03-26 22:29] LABS: Parathyroid Intact 191 pg/mL (14-64)
== END 2022-03-19 14:07 | disposition home or self-care (01) ==
LOC: CHSLAB 14:08
PROVIDERS: PCP Internal Medicine; Visit Provider Internal Medicine Nephrology
DX: N18.32 Chronic kidney disease, stage 3b (principal); R10.9 Unspecified abdominal pain; R19.7 Diarrhea, unspecified
CPT/HCPCS: 36415; 80069; 82570; 83970; 84156; 85025; 87045; 87177; 87209; 87324; 87427

== ENCOUNTER 2022-04-17 08:47 | Outpatient (CLI) | payer MEDICARE, SELFPAY ==
--- NOTE | ~2022-04-17 | US_ITS ---
EXAMINATION: US_ABDRLQ_US DATE: 04/17/2022 09:19 INDICATION: Right lower quadrant abdominal mass and tenderness. TECHNIQUE: Multiple grayscale and Doppler ultrasound images of the abdomen were obtained. COMPARISON: CT abdomen and pelvis 01/21/2022, abdomen MRI 02/15/2022 FINDINGS: There is no abnormal mass or hernia in the patient's area of concern in the right lower sue drant of the abdomen. IMPRESSION: 1. No abnormal mass or hernia in the patient's area of concern in the right lower quadrant of the abd omen. Reviewed, dictated and finalized at location A. R RULER IMPRESSION: 1. No abnormal mass or hernia in the patient's area of concern in the right low er quadrant of the abdomen.
== END 2022-04-17 08:48 | disposition home or self-care (01) ==
LOC: CHSIMG 08:50
PROVIDERS: PCP Internal Medicine; Visit Provider Nurse Practitioner
DX: R10.813 Right lower quadrant abdominal tenderness (principal); R19.03 Right lower quadrant abdominal swelling, mass and lump
CPT/HCPCS: 76705

== ENCOUNTER 2022-04-25 02:15 | Day surgery (SDC) | payer MEDICARE, SELFPAY ==
[2022-04-15 13:32] VITALS: BMI 21.9
[2022-04-25 10:18] VITALS: BP 134/67; PULSE 74; RESP 18; TEMP 36.2; O2SAT 100
[2022-04-25] MEDS: LACTATED RINGERS 1,000 ML 150 ML IV CONT (10:29)
--- NOTE | 2022-04-25 10:41 | PM.HPGS ---
History of Present Illness History of Present Illness Consent: Risks, benefits, and alternatives have been discussed and questions answered. Patient agrees to proceed with procedure. Chief complaint: diverticulitis Narrative: Chasidy Thomas is a 76 year old female who was diagnosed with sigmoid diverticulitis with micro perforation without abscess via CT without contrast (has CKD-can't have contrast) on 01/21/2022 after she presented with left lower quadrant abdominal pain nausea and fever.? elevated white blood cell count was noted.? She was treated with Augmentin and Flagyl for 10 days and then due to persistent elevated WBC she was treated with never round of Flagyl.? She began developing severe diarrhea with mucus and blood in her stools and was diagnosed with C diff. she was treated with an antibiotic but she is unsure of the name but it did not help.? She had a repeat C diff 03/19/2022 that was positive. Review of Systems Review of Systems: All systems reviewed & are unremarkable except as noted in HPI and below PMFSH Past Medical History Medical History Anxiety Atrial fibrillation Paroxysmal Atrial flutter (08/14/17) Blister of toe (02/24/18) Clostridioides difficile infection Diarrhea (10/22/17) Effusion, right knee Elevated AFP Elevated CA 19-9 level Family history of colon cancer GERD (gastroesophageal reflux disease) H/O supraventricular tachycardia Hemarthrosis of right knee Hyperlipidemia Hypertension Primary osteoarthritis of right knee Primary osteoarthritis of right wrist Rheumatoid arthritis RLQ abdominal mass RLQ abdominal tenderness Shoulder pain (08/14/17) Wrist pain (03/09/18) Surgical History Surgical History H/O cataract extraction H/O dilation and curettage A couple times History of tonsillectomy History of tubal ligation Family History Family History Father Carcinoma of colon Mother Family history of congestive heart failure Other Family history of malignant neoplasm Hypertension Social History Social History Social History: 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 She is and lives with her . She desires ever is a durable power claim attorney for healthcare. Patient desires to be a full code. She has 3 children. She is to smoke but quit when she is around 59 years old. No alcohol marijuana or illicit drugs. Smoking packs per day: 0.75 Smoking cigarettes per day: 15.0 Years smoked: 30 Smoking pack-years: 22.50 Smoking status: Former smoker Tobacco type: cigarettes Second hand tobacco smoke exposure: No Smoking end date: 10/31/94 Additional smoking assessment comments: STATES 1PK/DAY/30YRS QUIT 1993 Alcohol intake: current Drinks per week: 6 Substance use: never Substance use type: does not use Living arrangements: with family Gender identity (if verbalized by the patient): Female Sexual Orientation (if Verbalized by the Patient): Straight or Heterosexual Spiritual care concerns: No Meds Home Medications and Allergies Home Medications Medication Instructions Recorded Confirmed Type alprazolam 0.5 mg tablet 0.5 mg PO HS 10/06/19 04/15/22 History ascorbic acid (vitamin C) 500 mg 500 mg PO DAILY 10/06/19 04/15/22 History tablet atorvastatin 20 mg tablet 20 mg PO QAM 10/06/19 04/15/22 History calcium citrate 250 mg 1 tablet PO DAILY 10/06/19 04/15/22 History calcium-vitamin D3 5 mcg (200 unit) tablet (Citracal Regular) magnesium oxide 400 mg PO BID 10/06/19 04/15/22 History omeprazole 40 mg capsule,delayed 40 mg PO DAILY 10/06/19 04/15/22 History release prednisone 5 mg tablet 5 mg PO EVERY OTHER DAY 10/06/19 04/15/22 History leflunomide 10 mg tablet 10 m
--- NOTE | 2022-04-25 10:41 | WPDANESEPPF ---
Anes - Initial Pre Proc Eval Procedure: Operation Date: 04/25/22 11:30 Proposed Procedures p Colonoscopy - Tyler Love MD Date/Time: 04/25/22 10:41 Surgeon: Tyler Love MD Pre Op Diagnosis: diverticulitis Patient Data Age: 76 Gender: F Height: 1.73 m Weight: 64.8 kg Last Vital Signs Temp 36.2 C L 04/25/22 10:18 Pulse 74 04/25/22 10:18 Resp 18 04/25/22 10:18 BP 134/67 04/25/22 10:18 Pulse Ox 100 04/25/22 10:18 O2 Del Method Room Air 04/25/22 10:18 Allergies Allergy/AdvReac Type Severity Reaction Status Date / Time Sulfa (Sulfonamide AdvReac Unknown Nausea Verified 04/25/22 10:15 Antibiotics) oxycodone AdvReac Nausea and Verified 04/25/22 10:15 Vomiting Home Medications Medication Instructions Recorded Confirmed Type alprazolam 0.5 mg tablet 0.5 mg PO HS 10/06/19 04/15/22 History ascorbic acid (vitamin C) 500 mg 500 mg PO DAILY 10/06/19 04/15/22 History tablet atorvastatin 20 mg tablet 20 mg PO QAM 10/06/19 04/15/22 History calcium citrate 250 mg 1 tablet PO DAILY 10/06/19 04/15/22 History calcium-vitamin D3 5 mcg (200 unit) tablet (Citracal Regular) magnesium oxide 400 mg PO BID 10/06/19 04/15/22 History omeprazole 40 mg capsule,delayed 40 mg PO DAILY 10/06/19 04/15/22 History release prednisone 5 mg tablet 5 mg PO EVERY OTHER DAY 10/06/19 04/15/22 History leflunomide 10 mg tablet 10 mg PO DAILY 04/29/20 04/15/22 History rivaroxaban 15 mg tablet (Xarelto) 15 mg PO QPM 04/29/20 04/15/22 History spironolactone 25 mg tablet 25 mg PO DAILY 06/26/20 04/15/22 History ferrous sulfate 325 mg (65 mg 325 mg PO DAILY 09/28/20 04/15/22 History iron) tablet (Iron (ferrous sulfate)) flecainide 50 mg tablet 50 mg PO Q12HR 30 days #60 tabs 11/02/20 04/15/22 Rx metoprolol succinate 25 mg 25 mg PO Q12HR 30 days #60 tabs 11/02/20 04/15/22 Rx tablet,extended release 24 hr (Toprol XL) Patient hx anesthesia problems: none Family hx anesthesia problems: none Results Review: All pre-operative results and documents have been reviewed as part of the pre-operative evaluation. [facility] Past Medical History Medical History (Updated 04/25/22 @ 10:42 by Tyler Love MD) Anxiety Atrial fibrillation Paroxysmal Atrial flutter (08/14/17) Blister of toe (02/24/18) Clostridioides difficile infection Diarrhea (10/22/17) Effusion, right knee Elevated AFP Elevated CA 19-9 level Family history of colon cancer GERD (gastroesophageal reflux disease) H/O supraventricular tachycardia Hemarthrosis of right knee Hyperlipidemia Hypertension Primary osteoarthritis of right knee Primary osteoarthritis of right wrist Rheumatoid arthritis RLQ abdominal mass RLQ abdominal tenderness Shoulder pain (08/14/17) Wrist pain (03/09/18) Surgical History Surgical History H/O cataract extraction H/O dilation and curettage A couple times History of tonsillectomy History of tubal ligation Family History Family History Father Carcinoma of colon Mother Family history of congestive heart failure Other Family history of malignant neoplasm Hypertension Social History Social History Social History: 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 She is and lives with her . She desires ever is a durable power city attorney for healthcare. Patient desires to be a full code. She has 3 children. She is to smoke but quit when she is around 59 years old. No alcohol marijuana or illicit drugs. Smoking packs per day: 0.75 Smoking cigarettes per day: 15.0 Years smoked: 30 Smoking pack-years: 22.50 Smoking status: Former smoker Tobacco type: cigarettes Second hand tobacco smoke exposure: No Smoking end date: 10/31/94 Carrillo
[2022-04-25 11:31] VITALS: BP 122/79; PULSE 67; RESP 22; O2SAT 100
[2022-04-25 11:41] VITALS: BP 139/73; PULSE 64; RESP 17; O2SAT 100
[2022-04-25 11:51] VITALS: BP 147/72; PULSE 60; RESP 20; O2SAT 100
== END 2022-04-25 11:59 | disposition home or self-care (01) ==
PROVIDERS: PCP Internal Medicine; Visit Provider Internal Medicine Gastroenterology
PROC: 0DJD8ZZ Inspection of Lower Intestinal Tract, Via Natural or Artificial Opening Endoscopic (ICD-10-PCS; CPT 45378; principal; 2022-04-25 11:30)
DX: Z09 Encounter for follow-up examination after completed treatment for conditions other than malignant neoplasm (principal); K57.30 Diverticulosis of large intestine without perforation or abscess without bleeding; R19.4 Change in bowel habit; Z87.19 Personal history of other diseases of the digestive system; I48.0 Paroxysmal atrial fibrillation; F41.9 Anxiety disorder, unspecified; K21.9 Gastro-esophageal reflux disease without esophagitis; I10 Essential (primary) hypertension; E78.5 Hyperlipidemia, unspecified; M06.9 Rheumatoid arthritis, unspecified; Z79.01 Long term (current) use of anticoagulants; Z87.891 Personal history of nicotine dependence
CPT/HCPCS: 45380; 88305; J2704; J7120

== ENCOUNTER 2022-04-29 13:10 | Outpatient (CLI) | payer MEDICARE, SELFPAY | END 2022-04-29 13:11 | disposition home or self-care (01) | PROVIDERS: PCP Internal Medicine; Visit Provider Specialist | DX: C44.42 Squamous cell carcinoma of skin of scalp and neck (principal) | CPT/HCPCS: 88305 ==

== ENCOUNTER 2022-06-02 07:37 | Outpatient (CLI) | payer MEDICARE, SELFPAY ==
--- NOTE | ~2022-06-02 | CT_ITS ---
Non-contrast CT scan of the Abdomen and Pelvis Clinical indication: Liver lesion Technique: 5 mm axial scans were obtained through the abdomen and pelvis without intravenous or oral contrast. Dose reduction technique was used on this scan by utilizing automated exposure control and iterative reconstruction technique. The dose-length product (DLP) was 352.58 mGy-cm. COMPARISON: 01/21/2022 Findings: Images through the lung bases reveal chronic right basilar scarring or interstitial change . There is no evidence of renal or ureteral calculi. The kidneys and the ureters are nondilated. Stable focal hypodense area in the liver in the left hepatic lobe noted (axial image 36 for example). The spleen, pancreas, gallbladder, and adrenals appear normal. There is no aortic aneurysm. There is no evidence of bowel obstruction. Images through the pelvis were performed. There is no evidence of ascites or lymphadenopathy. Urinary bladder unremarkable. No adnexal mass seen. No ascites. Impression: Stable focal hypodense area in the left hepatic lobe. This was previously shown on MR to represent fo melanie steatosis. No other significant findings. Reviewed, dictated and finalized at [facility]. 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 This was previously shown on MR to represent focal steatosis. No other significant findings.
[2022-06-02 08:08] LABS: Basophils Absolute Auto 0.09 K/mm3 (0.00-0.10); Eosinophils Absolute Auto 0.18 K/mm3 (0.02-0.50); Hematocrit 42.3 % (35.0-42.0); Hemoglobin 13.5 g/dL (11.7-13.8); Immature Granulocyte Absolute 0.19 K/mm3 (0.00-0.00); Immature Granulocyte Percent A 2.1 % (0.0-0.0); Lymphocytes Absolute Auto 2.87 K/mm3 (1.10-4.50); Lymphocytes Percent Auto 31.4 % (18.0-42.0); Mean Corpuscular HGB Conc 31.9 g/dL (32.0-36.0); Mean Corpuscular Hemoglobin 31.9 pg (27.0-31.0); Mean Platelet Volume 11.2 fl (9.2-11.8); Monocytes Percent Auto 7.7 % (2.0-11.0); Neutrophils Absolute Auto 5.1 K/mm3 (1.7-7.2); Neutrophils Percent Auto 55.8 % (50.0-70.0); Platelet Count Result 164 K/mm3 (150-420); Red Blood Count 4.23 M/mm3 (4.20-5.40); Red Cell Distribution Width 13.3 % (11.6-14.4); White Blood Count 9.2 K/mm3 (4.8-10.8)
[2022-06-02 08:38] LABS: Alanine Aminotransferase 30 U/L (14-59); Albumin Level 3.6 g/dL (3.4-5.0); Alkaline Phosphatase 66 U/L (46-116); Anion Gap 6 mmol/L (8-16); Aspartate Amino Transferase 23 U/L (15-37); Bilirubin,Total 0.5 mg/dL (0.00-1.00); Blood Urea Nitrogen 24 mg/dL (7-18); Carbon Dioxide 31 mmol/L (21-32); Chloride 105 mmol/L (98-108); Estimated Glomerular Filt Rate 35; Glucose 82 mg/dL (70-99); Osmolality Calculated 297 mOsm/kg (285-295); Potassium 4.1 mmol/L (3.5-5.1); Sodium 142 mmol/L (136-145); Total Protein 6.2 g/dL (6.4-8.2)
[2022-06-05 12:20] LABS: CA 19-9 110 U/mL (<34)
== END 2022-06-02 07:38 | disposition home or self-care (01) ==
PROVIDERS: PCP Internal Medicine; Visit Provider Internal Medicine Hematology & Oncology
DX: K76.9 Liver disease, unspecified (principal); D37.8 Neoplasm of uncertain behavior of other specified digestive organs
CPT/HCPCS: 36415; 74176; 80053; 85025; 86301

== ENCOUNTER 2022-06-11 08:48 | Outpatient (CLI) | payer MEDICARE, SELFPAY ==
--- NOTE | ~2022-06-11 | MM_ITS ---
EXAMINATION: MM screening jose alberto BI w aurea HISTORY: Screening mammogram TECHNIQUE: Craniocaudal and mediolateral oblique 3-D tomosynthesis images were obtained and synthetic 2-D images were generated. CAD analysis was submitted and interpreted. COMPARISON: 10/15/2018 bilateral screening mammogram BREAST PARENCHYMAL COMPOSITION: The breasts are heterogeneously dense, which may obscure small masses . FINDINGS: There is no evidence of suspicious mass, calcification, or architectural distortion to sugg est malignancy in either breast. There has been no suspicious interval change. IMPRESSION: 1. No mammographic evidence of malignancy. 2. Recommend routine screening mammography in one year. BI-RADS Category 1: Negative Reviewed, dictated and finalized at location C. ATRIC PROGRAM COORDINATOR
== END 2022-06-11 08:49 | disposition home or self-care (01) ==
LOC: CHSIMG 08:49
PROVIDERS: PCP Internal Medicine; Visit Provider Internal Medicine
DX: Z12.31 Encounter for screening mammogram for malignant neoplasm of breast (principal)
CPT/HCPCS: 77063; 77067

== ENCOUNTER 2022-08-18 10:52 | Outpatient (CLI) | payer MEDICARE, SELFPAY ==
--- NOTE | ~2022-08-18 | CT_ITS ---
EXAMINATION: CT LE LT wo con DATE: 08/18/2022 11:42 INDICATION: Left lower limb pain and erythema and swelling. TECHNIQUE: Computed tomography (CT) of the left lower limb was performed without intravenous contrast . Automated exposure control and iterative reconstruction technique were employed. The dose-length pr oduct was 933.80 mGy-cm. COMPARISON: None FINDINGS: Bone alignment is normal. No fracture. The knee demonstrates moderate osteoarthritis of the medial compartment and mild osteoarthritis of the lateral and patellofemoral compartments. No knee j oint effusion. There is mild osteoarthritis of first metatarsophalangeal joint. There is mild Jessica s tendinopathy. There is subcutaneous edema in the calf and foot. There is soft tissue swelling plant ar to the first metatarsophalangeal joint and first distal phalanx. There is soft tissue swelling светлана ntar to fourth and fifth metatarsophalangeal joints. There are masses with central low-attenuation pl calvin to calcaneal tuberosity that may be fat necrosis or abscesses. The largest measures 1.6 x 1.1 x 0.9 cm. No radiopaque foreign body. IMPRESSION: 1. Masses plantar to calcaneal tuberosity that may be fat necrosis or abscesses. 2. Areas of soft tissue swelling in the plantar aspect of the forefoot, which may be pressure points. Reviewed, dictated and finalized at location A. IMPRESSION: 1. Masses plantar to calcaneal tuberosity that may be fat necrosis or abscesses . 2. Areas of soft tissue swelling in the plantar aspect of the forefoot, which m ay be pressure points.
[2022-08-18 11:06] LABS: Hematocrit 42.2 % (35.0-42.0); Hemoglobin 13.2 g/dL (11.7-13.8); Mean Corpuscular HGB Conc 31.3 g/dL (32.0-36.0); Mean Corpuscular Hemoglobin 31.4 pg (27.0-31.0); Mean Corpuscular Volume 100.2 fL (78.0-102.0); Mean Platelet Volume 10.9 fl (9.2-11.8); Platelet Count Result 222 K/mm3 (150-420); Red Blood Count 4.21 M/mm3 (4.20-5.40); Red Cell Distribution Width 13.2 % (11.6-14.4); White Blood Count 11.8 K/mm3 (4.8-10.8)
[2022-08-18 11:20] LABS: Band Neutrophils Percent 2 % (0-6); Neutrophils Absolute Manual 9.55 K/mm3 (1.7-7.2); Neutrophils Percent Manual 79 % (46-73); Total Cells Counted 100
[2022-08-18 11:21] LABS: Basophils Absolute Manual 0.11 K/mm3 (0-0.1); Basophils Percent Manual 1 % (0-1); Lymphocytes Absolute Manual 0.82 K/mm3 (1.1-4.5); Lymphocytes Percent Manual 7 % (18-44); Monocytes Absolute Manual 1.06 K/mm3 (0.1-0.90); Monocytes Percent Manual 9 % (3-9); Myelocytes Percent 2 %; Platelet Estimate Adequate (Adequate)
[2022-08-18 11:33] LABS: Alanine Aminotransferase 43 U/L (14-59); Albumin Level 3.5 g/dL (3.4-5.0); Alkaline Phosphatase 153 U/L (46-116); Anion Gap 8 mmol/L (8-16); Aspartate Amino Transferase 30 U/L (15-37); Bilirubin,Total 0.6 mg/dL (0.00-1.00); Blood Urea Nitrogen 24 mg/dL (7-18); CRP 3.1 mg/dL (0.0-0.9); Calcium 10.5 mg/dL (8.5-10.1); Carbon Dioxide 29 mmol/L (21-32); Chloride 103 mmol/L (98-108); Estimated Glomerular Filt Rate 35; Glucose 87 mg/dL (70-99); Osmolality Calculated 293 mOsm/kg (285-295); Potassium 3.9 mmol/L (3.5-5.1); Sodium 140 mmol/L (136-145); Total Protein 7.2 g/dL (6.4-8.2)
== END 2022-08-18 10:53 | disposition home or self-care (01) ==
LOC: CHSIMG 10:55
PROVIDERS: PCP Internal Medicine; Visit Provider Internal Medicine
DX: M79.605 Pain in left leg (principal); M79.89 Other specified soft tissue disorders
CPT/HCPCS: 36415; 73700; 80053; 85025; 86140

== ENCOUNTER 2022-08-20 16:12 | Outpatient (CLI) | payer MEDICARE, SELFPAY | END 2022-08-20 16:13 | disposition home or self-care (01) | PROVIDERS: PCP Internal Medicine; Visit Provider Internal Medicine | DX: R19.7 Diarrhea, unspecified (principal) | CPT/HCPCS: 87324 ==

== ENCOUNTER 2022-09-23 09:14 | Outpatient (CLI) | payer MEDICARE, SELFPAY ==
[2022-09-23 09:50] LABS: Hematocrit 39.8 % (35.0-42.0); Hemoglobin 12.7 g/dL (11.7-13.8); Mean Corpuscular HGB Conc 31.9 g/dL (32.0-36.0); Mean Corpuscular Hemoglobin 31.9 pg (27.0-31.0); Mean Platelet Volume 11.1 fl (9.2-11.8); Platelet Count Result 168 K/mm3 (150-420); Red Blood Count 3.98 M/mm3 (4.20-5.40); Red Cell Distribution Width 13.7 % (11.6-14.4); White Blood Count 8.4 K/mm3 (4.8-10.8)
[2022-09-23 10:09] LABS: Alanine Aminotransferase 21 U/L (14-59); Albumin Level 3.5 g/dL (3.4-5.0); Alkaline Phosphatase 65 U/L (46-116); Anion Gap 8 mmol/L (8-16); Aspartate Amino Transferase 23 U/L (15-37); Bilirubin,Total 0.5 mg/dL (0.00-1.00); Blood Urea Nitrogen 24 mg/dL (7-18); Calcium 9.8 mg/dL (8.5-10.1); Carbon Dioxide 29 mmol/L (21-32); Chloride 105 mmol/L (98-108); Estimated Glomerular Filt Rate 40; Glucose 81 mg/dL (70-99); Osmolality Calculated 297 mOsm/kg (285-295); Phosphorus 3.5 mg/dL (2.6-4.7); Potassium 3.6 mmol/L (3.5-5.1); Sodium 142 mmol/L (136-145); Total Protein 6.1 g/dL (6.4-8.2)
[2022-09-23 10:39] LABS: Band Neutrophils Percent 1 % (0-6); Basophils Absolute Manual 0.08 K/mm3 (0-0.1); Basophils Percent Manual 1 % (0-1); Eosinophils Absolute Manual 0.16 K/mm3 (0.02-0.5); Eosinophils Percent Manual 2 % (1-6); Lymphocytes Absolute Manual 2.52 K/mm3 (1.1-4.5); Lymphocytes Percent Manual 30 % (18-44); Metamyelocytes Percent 1 %; Monocytes Absolute Manual 0.25 K/mm3 (0.1-0.90); Monocytes Percent Manual 3 % (3-9); Myelocytes Percent 3 %; Neutrophils Absolute Manual 5.04 K/mm3 (1.7-7.2); Neutrophils Percent Manual 59 % (46-73); Platelet Estimate Adequate (Adequate); Total Cells Counted 100
[2022-09-23 11:16] LABS: Creatinine Urine 36.52 mg/dL (40-278); Total Protein Urine Random < 6.0 mg/dL (0.0-11.9); Ur Ttl Prot Creatinine Ratio 0.16 mg/mg (0-0.20)
[2022-09-27 05:09] LABS: CA 19-9 109 U/mL (<34)
[2022-09-27 21:38] LABS: Parathyroid Intact 49 pg/mL (14-64)
[2022-09-28 05:19] LABS: Vitamin D 25 Hydroxy 30 ng/mL (30-100)
== END 2022-09-23 09:15 | disposition home or self-care (01) ==
LOC: CHSLAB 09:20
PROVIDERS: PCP Internal Medicine; Visit Provider Internal Medicine Nephrology
DX: K76.9 Liver disease, unspecified (principal); N18.32 Chronic kidney disease, stage 3b; E21.1 Secondary hyperparathyroidism, not elsewhere classified; D37.8 Neoplasm of uncertain behavior of other specified digestive organs
CPT/HCPCS: 36415; 80053; 82306; 82570; 83970; 84100; 84156; 85025; 86301

== ENCOUNTER 2022-09-29 07:38 | Outpatient (CLI) | payer MEDICARE, SELFPAY ==
--- NOTE | ~2022-09-29 | CT_ITS ---
Non-contrast CT scan of the Abdomen and Pelvis Clinical indication: Liver lesion Technique: 2.5 mm axial scans were obtained through the abdomen and pelvis without intravenous or or al contrast. Dose reduction technique was used on this scan by utilizing automated exposure control a nd iterative reconstruction technique. The dose-length product (DLP) was 327.31 mGy-cm. Findings: Images through the lung bases reveal no abnormalities. There is no evidence of renal or ureteral calculi. The kidneys and the ureters are nondilated. The liver, spleen, pancreas, gallbladder, and adrenals appear normal. There are atherosclerotic calci fications of the aorta. There is no evidence of bowel obstruction. Images through the pelvis were performed. There is no evidence of ascites or lymphadenopathy. Urinary bladder unremarkable. No pelvic mass identified. Impression: No liver lesion identified. No significant abnormality seen. Reviewed, dictated and finalized at [facility]. Impression: No liver lesion identified. No significant abnormality seen.
== END 2022-09-29 07:39 | disposition home or self-care (01) ==
LOC: CHSIMG 07:39
PROVIDERS: PCP Internal Medicine; Visit Provider Internal Medicine Hematology & Oncology
DX: K76.9 Liver disease, unspecified (principal)
CPT/HCPCS: 74176

== ENCOUNTER 2022-12-25 12:12 | Outpatient (CLI) | payer MEDICARE, BC, SELFPAY ==
--- NOTE | ~2022-12-25 | DEXA_ITS ---
Bone Density Report Name: MELI VELEZ Age: 77 Sex: Female Ethnicity: White Date of : 1945 Indication: postmenopausal; screening for osteoporosis; parental hip fracture; height loss; rheumatoid arthritis; Referring Provider: Jason Isaacs Study: Bone densitometry was performed. Exam Date: December 25, 2022 Accession number: [id number] Bone Density: Region BMD T-score Z-score Classification AP Spine(L1-L4) 0.753 -2.7 -0.1 Osteoporosis Femoral Neck (Left) 0.641 -1.9 0.4 Osteopenia Total Hip (Left) 0.716 -1.9 0.1 Osteopenia Femoral Neck (Right) 0.575 -2.5 -0.2 Osteoporosis Total Hip (Right) 0.715 -1.9 0.1 Osteopenia Femoral Neck Mean 0.608 -2.2 0.1 Osteopenia Total Hip Mean 0.715 -1.9 0.1 Osteopenia World Health Organization criteria for BMD impression classify patients as: Normal (T-score at or above -1.0), Osteopenia (T-score between -1.0 and -2.5), or Osteoporosis (T-score at or below -2.5). 10-year Fracture Risk: FRAX not reported because: Some T-score for Spine Total or Hip Total or Femoral Neck at or below -2.5 Treated for osteoporosis Clinical Information Provided by Patient: Parent has had a hip fracture Has rheumatoid arthritis Is being treated for osteoporosis Has used the following medications: Reclast (i.e. zoledronate), Vitamin D, Calcium Patient maximum height was 69 Menopause Age: 49 No regular weight bearing exercise Does not regularly consume dairy products Drinks caffeinated beverages Onset of menses at age 14 Number of children 3 Impression: The patient has osteoporosis, based on the Total Spine T-score. The patient has risk factors, including: parental hip fracture. Discussion: It is important to ask patients whether they are taking their medications and to encourage continued and appropriate compliance with their osteoporosis therapies to reduce fracture risk. It is also important to review their risk factors and encourage appropriate calcium and vitamin D intakes, exercise, fall prevention and other lifestyle measures. Follow-Up: Consider a repeat BMD and Vertebral Fracture Assessment (VFA) exam in 2 years or sooner if medically necessary, to reassess this patient's status. Reported by: Dr. Nick Garcia on 12/25/2022 12:55:00 PM. Reviewed, dictated and finalized at location A.
== END 2022-12-25 12:13 | disposition home or self-care (01) ==
LOC: CHSIMG 12:14
PROVIDERS: PCP Internal Medicine; Visit Provider Internal Medicine
DX: Z78.0 Asymptomatic menopausal state (principal); M85.89 Other specified disorders of bone density and structure, multiple sites; M81.0 Age-related osteoporosis without current pathological fracture
CPT/HCPCS: 77080

== ENCOUNTER 2022-12-26 09:55 | Outpatient (CLI) | payer MEDICARE, BC, SELFPAY ==
[2022-12-26] MEDS: ZOLEDRONIC ACID 5 MG/100 ML 100 ML 400 MG IVPB (10:15)
[2022-12-26 10:39] VITALS: BP 117/68; PULSE 72; RESP 14; TEMP 36.7; O2SAT 98; BMI 23.4
--- NOTE | 2022-12-26 10:41 | PC.NURSE ---
Patient here for yearly IV Reclast. Education given. All questions answered. IV Reclast administered. SEE MAR. Tolerated well. Safe exit of hospital per self/amb.
== END 2022-12-26 09:56 | disposition home or self-care (01) ==
PROVIDERS: PCP Internal Medicine; Visit Provider Internal Medicine
DX: M81.0 Age-related osteoporosis without current pathological fracture (principal)
CPT/HCPCS: 96365; 96374; J3489

== ENCOUNTER 2023-02-03 08:46 | Outpatient (CLI) | payer MEDICARE, SELFPAY ==
[2023-02-03 09:11] LABS: Hematocrit 37.2 % (35.0-42.0); Hemoglobin 11.6 g/dL (11.7-13.8); Mean Corpuscular HGB Conc 31.2 g/dL (32.0-36.0); Mean Corpuscular Hemoglobin 32.4 pg (27.0-31.0); Mean Corpuscular Volume 103.9 fL (78.0-102.0); Mean Platelet Volume 10.4 fl (9.2-11.8); Platelet Count Result 170 K/mm3 (150-420); Red Blood Count 3.58 M/mm3 (4.20-5.40); Red Cell Distribution Width 13.5 % (11.6-14.4); White Blood Count 8.4 K/mm3 (4.8-10.8)
[2023-02-03 09:35] LABS: Albumin Level 3.6 g/dL (3.4-5.0); Anion Gap 9 mmol/L (8-16); Blood Urea Nitrogen 28 mg/dL (7-18); Calcium 9.4 mg/dL (8.5-10.1); Carbon Dioxide 27 mmol/L (21-32); Chloride 106 mmol/L (98-108); Estimated Glomerular Filt Rate 34; Glucose 91 mg/dL (70-99); Osmolality Calculated 299 mOsm/kg (285-295); Phosphorus 2.7 mg/dL (2.6-4.7); Potassium 3.9 mmol/L (3.5-5.1); Sodium 142 mmol/L (136-145)
[2023-02-03 12:46] LABS: Creatinine Urine 46.57 mg/dL (40-278); Total Protein Urine Random < 6.0 mg/dL (0.0-11.9); Ur Ttl Prot Creatinine Ratio 0.13 mg/mg (0-0.20)
[2023-02-05 19:35] LABS: Parathyroid Intact 156 pg/mL (14-64)
== END 2023-02-03 08:47 | disposition home or self-care (01) ==
LOC: CHSLAB 08:49
PROVIDERS: PCP Internal Medicine; Visit Provider Internal Medicine Nephrology
DX: N18.31 Chronic kidney disease, stage 3a (principal); D63.1 Anemia in chronic kidney disease
CPT/HCPCS: 36415; 80069; 82570; 83970; 84156; 85027

== ENCOUNTER 2023-02-16 14:17 | Outpatient (CLI) | payer MEDICARE, SELFPAY ==
--- NOTE | ~2023-02-16 | US_ITS ---
EXAMINATION: US pelvic complete DATE: 02/16/2023 14:46 INDICATION: Vaginal spotting Comparison:10/15/2018 TECHNIQUE: Multiple transabdominal sonographic images of the pelvis performed. Patient refused transv aginal examination. FINDINGS: The uterus measures 5.1 x 2.3 x 2.4 cm. The endometrial complex measures 10 mm. There is fl uid in the endometrium. The ovaries are not visualized. There is no free fluid in the pelvis. There are no abnormal masses seen on either side. IMPRESSION: 1. Thickened endomtrial complex. The differential diagnosis includes endometrial hyperplasia, polyp a nd carcinoma. Biopsy is recommended. Reviewed, dictated and finalized at location B. IMPRESSION: 1. Thickened endomtrial complex. The differential diagnosis includes endometria l hyperplasia, polyp and carcinoma. Biopsy is recommended.
== END 2023-02-16 14:18 | disposition home or self-care (01) ==
LOC: CHSIMG 14:20
PROVIDERS: PCP Internal Medicine; Visit Provider Internal Medicine
DX: N93.8 Other specified abnormal uterine and vaginal bleeding (principal); R93.3 Abnormal findings on diagnostic imaging of other parts of digestive tract
CPT/HCPCS: 76856

== ENCOUNTER 2023-03-13 00:21 | Day surgery (SDC) | payer MEDICARE, SELFPAY ==
[2023-03-09 13:23] VITALS: BMI 22.7
--- NOTE | 2023-03-09 13:24 | PC.NURSE ---
Report to the Outpatient Waiting Room, entrance under the green pavilion located off [facility], at time _0630_ on date _[id number]_. Planned Procedure Time: _0830_. Time changes happen often and if your time is changed the preop area will call you the afternoon before. - You and your visitor will be asked to self-screen and do not enter if you have any COVID symptoms. - A mask is optional within the hospital at this time. Patients may have clear liquids (water, carbonated beverages, clear teas, apple juice) until 3 hours prior to surgery with a maximum of 20 ounces. - No food from midnight until time of surgery Take the following medications with a SIP of water the morning of surgery: ___Flecainide, Metoprolol and Prednisone DO NOT STOP ANY OF YOUR OTHER PRESCRIPTION MEDICATIONS PRIOR TO SURGERY ?EXCEPT THE FOLLOWING Medications to discontinue per physician Patient says is stopping Xarelto 4 days prior to surgery as instructed by .____ Date to take last dose Please no make-up, nail ugandan, hairspray, perfume, deodorant, or body powder the day of surgery. No jewelry (including any body piercings) or valuables the day of surgery, leave them at home. Please take a shower or bath the night before, or the morning of, surgery with an antibacterial soap. Wear comfortable, loose fitting clothing. - Jewelry must be removed prior to entering the operating room. Rings and piercings that are not removed may be cut off. - The hospital will not accept responsibility for valuables. - Please leave all valuables, including medications, at home the day of surgery. If you are going home after surgery, a licensed school bus driver/custodian must drive you home. - NO public transportation without another adult if you receive anesthesia. - We recommend that an adult stay with you for 24 hours following discharge. - We also recommend that you do not drive, make important decision, drink alcoholic beverages, or take any drugs that were not prescribed by your health care provider for at least 24 hours after your discharge time. Follow any additional instructions given to you from your surgeon. If you or anyone in your household have experienced Covid symptoms in the past week, please notify your surgeon or the nurse liaison at the phone number below for possible testing. Telephone instructions given to _Chasidy__and asked if any additional questions and then verbalized understanding. Patient advised to call surgeon office or pre surgery nurse liaison [phone] if any additional questions.
--- NOTE | 2023-03-12 12:42 | PM.IMHP ---
H&P: HPI History of Present Illness Date/Time: 03/12/23 12:42 Chief Complaint: Postmenopausal bleeding Narrative: 77 y/o with episode of postmenopausal bleeding and thickened endometrial stripe of 10mm on ultrasound. She was recommended for endometrial sampling and opted for D and C hysteroscopy. Review of Systems Review of Systems: All systems reviewed & are unremarkable except as noted in HPI and below Cardiovascular: Cardiovascular: Reports no additional cardiovascular complaints, Denies chest pain and Denies dyspnea Respiratory: Respiratory: Reports no additional respiratory complaints and Denies dyspnea Gastrointestinal: Gastrointestinal: Reports abdominal pain, Denies change in bowel habits, Denies diarrhea, Denies nausea and Denies vomiting Genitourinary: Genitourinary: Reports pelvic pain Musculoskeletal: Musculoskeletal: Reports back pain Integumentary/Breasts: Skin/Breast: Reports system reviewed and no additional complaints, except as docu Neurologic: Reports system reviewed and no additional complaints, except as documented PMF Past Medical History Medical History Anxiety Atrial fibrillation Paroxysmal Atrial flutter (08/14/17) Clostridioides difficile infection Diarrhea (10/22/17) Effusion, right knee Elevated AFP Elevated CA 19-9 level GERD (gastroesophageal reflux disease) H/O supraventricular tachycardia Hemarthrosis of right knee Hyperlipidemia Hypertension Primary osteoarthritis of right knee Primary osteoarthritis of right wrist Rheumatoid arthritis RLQ abdominal mass RLQ abdominal tenderness Shoulder pain (08/14/17) Wrist pain (03/09/18) Surgical History Surgical History H/O cataract extraction H/O dilation and curettage A couple times History of appendectomy History of carpal tunnel release History of tonsillectomy History of tubal ligation History of ureteroscopy Family History Family History Father Carcinoma of colon at age 82, colon cancer Leukemia Mother Heart disease at age 72, heart disease ICH (intracerebral hemorrhage) Sibling Hypertension Leukemia Renal carcinoma Other Family history of malignant neoplasm Social History Social History Social History: 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 She is and lives with her . She desires ever is a durable power bankruptcy attorney for healthcare. Patient desires to be a full code. She has 3 children. She is to smoke but quit when she is around 59 years old. No alcohol marijuana or illicit drugs. Smoking packs per day: 1 Smoking cigarettes per day: 20.0 Years smoked: 20 Smoking pack-years: 20.00 Smoking status: Former smoker Tobacco type: cigarettes Second hand tobacco smoke exposure: No Smoking end date: 03/09/98 Additional smoking assessment comments: STATES 1PK/DAY/30YRS QUIT 1993 Alcohol intake: current Drinks per week: 6 Substance use: never Substance use type: does not use Lack of Transportation: No Lack of Food: Never True Current Housing: I Have Housing Concerned About Future Housing: No Difficulty Paying Gas/Electric Bills: No Difficulty Paying for Meds: No Currently Unemployed: No Education: High School Diploma/GED Difficulty w/ Childcare or Family Care: No Living arrangements: with family Additional living arrangements comments: Occupation/Education: retired Gender identity (if verbalized by the patient): Female Sexual Orientation (if Verbalized by the Patient): Straight or Heterosexual Spiritual care concerns: No Meds Home Medications and Allergies Home Medications Medication Instructions Recorded Confirmed Type alprazol
[2023-03-13 07:37] VITALS: BP 144/70; PULSE 67; RESP 20; TEMP 36.9; O2SAT 100
--- NOTE | 2023-03-13 07:57 | WPDANESEPPF ---
Anes - Initial Pre Proc Eval Procedure: Operation Date: 03/13/23 09:30 Proposed Procedures p Hysteroscopy Dilation and Curettage, Removal of any Endometrial Lesion, if Necessary - Graham Edwards MD Date/Time: 03/13/23 07:57 Surgeon: Graham Edwards MD Pre Op Diagnosis: Post Menopausal Bleeding Patient Data Age: 77 Gender: F Height: 1.7 m Weight: 65.9 kg Allergies Allergy/AdvReac Type Severity Reaction Status Date / Time oxycodone AdvReac Severe Nausea and Verified 03/13/23 07:41 Vomiting Sulfa (Sulfonamide AdvReac Mild Nausea Verified 03/13/23 07:41 Antibiotics) Home Medications Medication Instructions Recorded Confirmed Type alprazolam 0.5 mg tablet 0.5 mg PO HS 10/06/19 03/13/23 History ascorbic acid (vitamin C) 500 mg 500 mg PO DAILY 10/06/19 03/13/23 History tablet atorvastatin 20 mg tablet 20 mg PO QAM 10/06/19 03/13/23 History calcium citrate 250 mg 1 tablet PO DAILY 10/06/19 03/13/23 History calcium-vitamin D3 5 mcg (200 unit) tablet (Citracal Regular) magnesium oxide 400 mg PO BID 10/06/19 03/13/23 History omeprazole 40 mg capsule,delayed 40 mg PO DAILY 10/06/19 03/13/23 History release prednisone 5 mg tablet 5 mg PO EVERY OTHER DAY 10/06/19 03/13/23 History leflunomide 10 mg tablet 10 mg PO DAILY 04/29/20 03/13/23 History rivaroxaban 15 mg tablet (Xarelto) 15 mg PO QPM 04/29/20 03/13/23 History ferrous sulfate 325 mg (65 mg 325 mg PO DAILY 09/28/20 03/13/23 History iron) tablet (Iron (ferrous sulfate)) flecainide 50 mg tablet 50 mg PO Q12HR 30 days #60 tabs 11/02/20 03/13/23 Rx metoprolol succinate 25 mg 25 mg PO Q12HR 30 days #60 tabs 11/02/20 03/13/23 Rx tablet,extended release 24 hr (Toprol XL) spironolactone 25 mg tablet 25 mg PO DAILY #90 tabs 02/24/23 03/13/23 Rx cholecalciferol (vitamin D3) 25 25 mcg PO DAILY 03/09/23 03/13/23 History mcg (1,000 unit) tablet (Vitamin D3) Patient hx anesthesia problems: none Family hx anesthesia problems: none Results Review: All pre-operative results and documents have been reviewed as part of the pre-operative evaluation. [facility] Past Medical History Medical History Anxiety Atrial fibrillation Paroxysmal Atrial flutter (08/14/17) Clostridioides difficile infection Diarrhea (10/22/17) Effusion, right knee Elevated AFP Elevated CA 19-9 level GERD (gastroesophageal reflux disease) H/O supraventricular tachycardia Hemarthrosis of right knee Hyperlipidemia Hypertension Primary osteoarthritis of right knee Primary osteoarthritis of right wrist Rheumatoid arthritis RLQ abdominal mass RLQ abdominal tenderness Shoulder pain (08/14/17) Wrist pain (03/09/18) Surgical History Surgical History H/O cataract extraction H/O dilation and curettage A couple times History of appendectomy History of carpal tunnel release History of tonsillectomy History of tubal ligation History of ureteroscopy Family History Family History Father Carcinoma of colon at age 82, colon cancer Leukemia Mother Heart disease at age 72, heart disease ICH (intracerebral hemorrhage) Sibling Hypertension Leukemia Renal carcinoma Other Family history of malignant neoplasm Social History Social History Social History: 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 She is and lives with her . 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 Patient desires to be a full code. She has 3 children. She is to smoke but quit when she is around 59 years old. No alcohol marijuana or illicit drugs. Smoking packs per day: 1 Smoking cigarettes per day: 20.0 Years smoked: 20 Smoking pack-years: 20.00 S
[2023-03-13] MEDS: LACTATED RINGERS 1,000 ML 30 ML IV CONT (08:15)
[2023-03-13] MEDS: ACETAMINOPHEN 500 MG TABLET 1000 MG PO (08:25)
--- NOTE | 2023-03-13 08:36 | WPDHPUPDATE1 ---
History and Physical Update Update Date/Time: 03/13/23 08:36 History and Physical has been reviewed, including an updated exam of the patient. There are NO changes in the patient's condition. Risks, benefits, and alternatives have been discussed and questions answered. Patient agrees to proceed with procedure.
[2023-03-13] MEDS: ceFAZolin 2 GM/D5W 50 ML 2 GM/50 ML BAG IVPB (09:16)
[2023-03-13] MEDS: LIDOCAINE HCL 1% LOCAL INJ 20 ML VIAL 10 ML INFILTRATE (09:28)
--- NOTE | 2023-03-13 09:38 | W.PM.PROC2 ---
Procedure Note - Detailed Date of Procedure 03/13/23 Pre-op Diagnosis Post Menopausal Bleeding, thickened endometrial stripe Post-op Diagnosis Same Procedure Performed Dilation and curettage hysteroscopy diagnostic and removal of endometrial lesion. Surgeon Graham Edwards MD Anesthesia MAC and Local Indications Postmenopausal bleeding and abnormal thickened endometrial stripe Findings The uterine cavity there was a 1.5 cm growth consistent with polyp texture. It was removed completely rest of the cavity was atrophic appearing. Description of Procedure After form consent was obtained patient was taken to the operating room and adequate IV sedation was administered. She was placed in low lithotomy position and prepped and draped in sterile fashion. Attention was turned to the vagina. Speculum inserted. Single-tooth tenaculum placed on anterior lip of the cervix. 1% lidocaine was injected at the cervical vaginal interface at 2, 5, 8 and 10 position. The hysteroscope was inserted and hydrodilation was used to enter the cervical canal and uterine cavity. There was noted to be the 1.5 cm lesion at the posterior wall of the mid uterine cavity. The Aveta instrument was used and removed the growth completely. A curettage was then performed and there was minimal tissue obtained. The single-tooth tenaculum was removed. Hemostasis was noted. The speculum was removed. The patient tolerated procedure well. Estimated Blood Loss 5 Drains No Packing No Pathology Yes (1. Endometrial growth and scant endometrial curettings) Complications No immediate complications Condition Stable Disposition Same day [facility] Billing Surgery - Charge Forward: Surgery Billing
[2023-03-13 09:39] VITALS: BP 100/49; PULSE 58; RESP 12; O2SAT 97
[2023-03-13 10:05] VITALS: BP 121/58; PULSE 57; RESP 14
[2023-03-13 10:34] VITALS: BP 158/72; PULSE 62; RESP 16
== END 2023-03-13 10:44 | disposition home or self-care (01) ==
PROVIDERS: PCP Internal Medicine; Visit Provider Obstetrics & Gynecology
PROC: 0U5B8ZZ Destruction of Endometrium, Via Natural or Artificial Opening Endoscopic (ICD-10-PCS; CPT 58563; principal; 2023-03-13 09:30)
DX: N85.8 Other specified noninflammatory disorders of uterus (principal); N95.0 Postmenopausal bleeding; F41.9 Anxiety disorder, unspecified; I48.0 Paroxysmal atrial fibrillation; K21.9 Gastro-esophageal reflux disease without esophagitis; E78.5 Hyperlipidemia, unspecified; I10 Essential (primary) hypertension; Z87.891 Personal history of nicotine dependence; Z79.01 Long term (current) use of anticoagulants; Z80.0 Family history of malignant neoplasm of digestive organs; Z80.51 Family history of malignant neoplasm of kidney; Z82.49 Family history of ischemic heart disease and other diseases of the circulatory system
CPT/HCPCS: 58558; 88305; A9270; J0690; J2704; J3010; J7120

== ENCOUNTER 2023-05-06 09:03 | Outpatient (CLI) | payer MEDICARE, SELFPAY ==
[2023-05-06 09:30] LABS: Hematocrit 40.4 % (35.0-42.0); Hemoglobin 12.7 g/dL (11.7-13.8); Mean Corpuscular HGB Conc 31.4 g/dL (32.0-36.0); Mean Corpuscular Hemoglobin 32.1 pg (27.0-31.0); Mean Platelet Volume 11.1 fl (9.2-11.8); Platelet Count Result 197 K/mm3 (150-420); Red Blood Count 3.96 M/mm3 (4.20-5.40); Red Cell Distribution Width 13.1 % (11.6-14.4); White Blood Count 9.6 K/mm3 (4.8-10.8)
[2023-05-06 09:50] LABS: Band Neutrophils Percent 0 % (0-6); Eosinophils Absolute Manual 0.28 K/mm3 (0.02-0.5); Eosinophils Percent Manual 3 % (1-6); Lymphocytes Absolute Manual 3.07 K/mm3 (1.1-4.5); Lymphocytes Percent Manual 32 % (18-44); Monocytes Absolute Manual 0.96 K/mm3 (0.1-0.90); Monocytes Percent Manual 10 % (3-9); Myelocytes Percent 2 %; Neutrophils Absolute Manual 5.08 K/mm3 (1.7-7.2); Neutrophils Percent Manual 53 % (46-73); Platelet Estimate Adequate (Adequate); Total Cells Counted 100
[2023-05-06 10:01] LABS: Alanine Aminotransferase 35 U/L (14-59); Albumin Level 3.4 g/dL (3.4-5.0); Alkaline Phosphatase 63 U/L (46-116); Anion Gap 10 mmol/L (8-16); Aspartate Amino Transferase 24 U/L (15-37); Bilirubin,Total 0.5 mg/dL (0.00-1.00); Blood Urea Nitrogen 28 mg/dL (7-18); Calcium 8.9 mg/dL (8.5-10.1); Carbon Dioxide 28 mmol/L (21-32); Chloride 103 mmol/L (98-108); Estimated Glomerular Filt Rate 30; Glucose 84 mg/dL (70-99); Osmolality Calculated 296 mOsm/kg (285-295); Potassium 3.7 mmol/L (3.5-5.1); Sodium 141 mmol/L (136-145); Total Protein 6.2 g/dL (6.4-8.2)
[2023-05-09 07:44] LABS: CA 19-9 137 U/mL (<34)
== END 2023-05-06 09:04 | disposition home or self-care (01) ==
LOC: CHSLAB 09:05
PROVIDERS: PCP Internal Medicine; Visit Provider Internal Medicine Hematology & Oncology
DX: K76.9 Liver disease, unspecified (principal); D37.8 Neoplasm of uncertain behavior of other specified digestive organs
CPT/HCPCS: 36415; 80053; 85025; 86301

== ENCOUNTER 2023-05-15 07:16 | Outpatient (CLI) | payer MEDICARE, SELFPAY ==
--- NOTE | ~2023-05-15 | CT_ITS ---
EXAMINATION: CT abdomen pelvis w con DATE: 05/15/2023 08:20 INDICATION: Liver lesion TECHNIQUE: Computed tomography (CT) of the abdomen and pelvis was performed with 200 mL Omnipaque-350 intravenous contrast. Imaging was repeated as there was essentially no evident contrast on the initi al scan. The dose-length product was 635.76 mGy-cm. COMPARISON: CT studies dated 09/29/2022 and 01/21/2022 and MRI dated 02/15/2022 FINDINGS: Mild bronchiectatic changes and reticular pattern of scarring in the right lower lobe. Calcified righ t lower lobe nodule consistent with old granulomatous disease. Heart size is normal. No pericardial o r pleural effusion. Small sliding-type hiatal hernia. Again seen are couple very small ill-defined fo ci of decreased density in segment IVb of the liver which demonstrates corresponding signal dropout o n opposed phase imaging on prior MRI consistent with focal hepatic steatosis. No other hepatic lesion s identified. Gallbladder, spleen, pancreas, bilateral adrenal glands and left kidney are normal. 5 m m cyst at the upper pole the right kidney. There is mild colonic diverticulosis with a sigmoid predom inance. There is no adjacent inflammatory change to suggest diverticulitis. Normal small bowel. Blad pablito, uterus and bilateral adnexa are unremarkable. No free intraperitoneal gas or fluid. No pathologi kristopher enlarged abdominal or pelvic lymphadenopathy. Mild lumbar levocurvature with severe spondylosis . IMPRESSION: 1. No interval change in a couple small poorly defined foci of focal hepatic steatosis in segment IVb of the liver which would require no further follow-up. No other hepatic lesions identified. Reviewed, dictated and finalized at location A. [place] [employer] IMPRESSION: 1. No interval change in a couple small poorly defined foci of focal hepatic st eatosis in segment IVb of the liver which would require no further follow-up. N o other hepatic lesions identified.
== END 2023-05-15 07:17 | disposition home or self-care (01) ==
LOC: CHSIMG 07:17
PROVIDERS: PCP Internal Medicine; Visit Provider Internal Medicine Hematology & Oncology
DX: K76.9 Liver disease, unspecified (principal)
CPT/HCPCS: 74177; Q9967

== ENCOUNTER 2023-06-16 08:19 | Outpatient (CLI) | payer MEDICARE, SELFPAY ==
[2023-06-16 10:36] LABS: Hemoglobin 12.4 g/dL (11.7-13.8); Mean Corpuscular Hemoglobin 31.6 pg (27.0-31.0); Mean Corpuscular Volume 101.8 fL (78.0-102.0); Platelet Count Result 183 K/mm3 (150-420); Red Blood Count 3.93 M/mm3 (4.20-5.40); Red Cell Distribution Width 13.4 % (11.6-14.4); White Blood Count 9.4 K/mm3 (4.8-10.8)
[2023-06-16 10:44] LABS: Albumin Level 3.3 g/dL (3.4-5.0); Anion Gap 10 mmol/L (8-16); Blood Urea Nitrogen 25 mg/dL (7-18); Calcium 9.3 mg/dL (8.5-10.1); Carbon Dioxide 27 mmol/L (21-32); Chloride 106 mmol/L (98-108); Estimated Glomerular Filt Rate 30; Glucose 94 mg/dL (70-99); Osmolality Calculated 300 mOsm/kg (285-295); Phosphorus 3.1 mg/dL (2.6-4.7); Potassium 3.5 mmol/L (3.5-5.1); Sodium 143 mmol/L (136-145)
[2023-06-16 10:45] LABS: Creatinine Urine 82.71 mg/dL (40-278); Total Protein Urine Random 7.5 mg/dL (0.0-11.9); Ur Ttl Prot Creatinine Ratio 0.09 mg/mg (0-0.20)
[2023-06-19 14:57] LABS: Parathyroid Intact 141 pg/mL (14-64)
[2023-06-20 02:03] LABS: Vitamin D 25 Hydroxy 38 ng/mL (30-100)
== END 2023-06-16 08:20 | disposition home or self-care (01) ==
PROVIDERS: PCP Internal Medicine; Visit Provider Internal Medicine Nephrology
DX: N18.31 Chronic kidney disease, stage 3a (principal); D63.1 Anemia in chronic kidney disease; E21.1 Secondary hyperparathyroidism, not elsewhere classified; N18.30 Chronic kidney disease, stage 3 unspecified
CPT/HCPCS: 36415; 80069; 82306; 82570; 83970; 84156; 85027

== ENCOUNTER 2023-09-10 08:41 | Outpatient (CLI) | payer MEDICARE, SELFPAY ==
--- NOTE | ~2023-09-10 | XR_ITS ---
Clinical Indication: Cough, fever PA and lateral views of the chest: Comparison: 08/14/2021 Findings: The lungs are clear, without evidence of focal consolidation or pleural effusion. Probable COPD. Cardiomediastinal silhouette is within normal limits. Bones and soft tissues are unremarkable. Impression: COPD. No acute abnormality. Reviewed, dictated and finalized at location . Impression: COPD. No acute abnormality.
[2023-09-10 09:28] LABS: Hematocrit 35.3 % (35.0-42.0); Hemoglobin 11.1 g/dL (11.7-13.8); Mean Corpuscular HGB Conc 31.4 g/dL (32-36); Mean Corpuscular Hemoglobin 31.1 pg (27.0-31.0); Mean Corpuscular Volume 98.9 fL (78.0-102.0); Mean Platelet Volume 10.3 fl (9.2-11.8); Platelet Count Result 216 K/mm3 (150-420); Red Blood Count 3.57 M/mm3 (4.20-5.40); Red Cell Distribution Width 13.2 % (11.6-14.4)
[2023-09-10 09:45] LABS: White Blood Count 20.6 K/mm3 (4.8-10.8)
[2023-09-10 09:50] LABS: D Dimer 0.25 mg/L (0.19-0.50)
[2023-09-10 09:55] LABS: Band Neutrophils Percent 0 % (0-6); Lymphocytes Absolute Manual 1.64 K/mm3 (1.1-4.5); Lymphocytes Percent Manual 8 % (18-44); Metamyelocytes Percent 1 %; Monocytes Absolute Manual 2.06 K/mm3 (0.1-0.90); Monocytes Percent Manual 10 % (3-9); Neutrophils Absolute Manual 16.68 K/mm3 (1.7-7.2); Neutrophils Percent Manual 81 % (46-73); Platelet Estimate Adequate (Adequate); Total Cells Counted 100
[2023-09-10 10:09] LABS: Alanine Aminotransferase 79 U/L (14-59); Albumin Level 2.9 g/dL (3.4-5.0); Alkaline Phosphatase 262 U/L (46-116); Anion Gap 9 mmol/L (4-12); Aspartate Amino Transferase 62 U/L (15-37); Bilirubin,Total 1.4 mg/dL (0.00-1.00); Blood Urea Nitrogen 23 mg/dL (7-18); Calcium 9.5 mg/dL (8.5-10.1); Carbon Dioxide 28 mmol/L (21-32); Chloride 100 mmol/L (98-108); Estimated Glomerular Filt Rate 33; Glucose 92 mg/dL (70-99); Osmolality Calculated 287 mOsm/kg (285-295); Potassium 3.6 mmol/L (3.5-5.1); Sodium 137 mmol/L (136-145); Total Protein 5.9 g/dL (6.4-8.2)
== END 2023-09-10 08:42 | disposition home or self-care (01) ==
LOC: CHSLAB 08:44
PROVIDERS: PCP Internal Medicine; Visit Provider Nurse Practitioner Family
DX: R09.89 Other specified symptoms and signs involving the circulatory and respiratory systems (principal); R53.83 Other fatigue; J98.01 Acute bronchospasm
CPT/HCPCS: 36415; 71046; 80053; 85025; 85380

== ENCOUNTER 2023-09-14 08:51 | Outpatient (CLI) | payer MEDICARE, SELFPAY ==
[2023-09-14 11:15] LABS: Hematocrit 35.4 % (35.0-42.0); Hemoglobin 11.1 g/dL (11.7-13.8); Mean Corpuscular HGB Conc 31.4 g/dL (32-36); Mean Corpuscular Hemoglobin 31.4 pg (27.0-31.0); Mean Platelet Volume 11.1 fl (9.2-11.8); Platelet Count Result 269 K/mm3 (150-420); Red Blood Count 3.54 M/mm3 (4.20-5.40); White Blood Count 11.9 K/mm3 (4.8-10.8)
[2023-09-14 23:12] LABS: Anion Gap 11 mmol/L (4-12); Blood Urea Nitrogen 19 mg/dL (7-18); Calcium 9.7 mg/dL (8.5-10.1); Carbon Dioxide 25 mmol/L (21-32); Chloride 103 mmol/L (98-108); Estimated Glomerular Filt Rate 35; Glucose 84 mg/dL (70-99); Osmolality Calculated 289 mOsm/kg (285-295); Sodium 139 mmol/L (136-145)
[2023-09-19 10:34] LABS: Vitamin D 25 Hydroxy 73 ng/mL (30-100)
[2023-09-23 16:09] LABS: Parathyroid Intact 46 pg/mL (16-77)
== END 2023-09-14 08:52 | disposition home or self-care (01) ==
LOC: CHSLAB 08:53
PROVIDERS: PCP Internal Medicine; Visit Provider Internal Medicine Nephrology
DX: N18.31 Chronic kidney disease, stage 3a (principal); D63.1 Anemia in chronic kidney disease; N18.30 Chronic kidney disease, stage 3 unspecified; I10 Essential (primary) hypertension; E78.5 Hyperlipidemia, unspecified; E21.1 Secondary hyperparathyroidism, not elsewhere classified; J10.00 Influenza due to other identified influenza virus with unspecified type of pneumonia; R50.9 Fever, unspecified; D72.829 Elevated white blood cell count, unspecified
CPT/HCPCS: 36415; 80069; 82306; 83970; 85025; 85027

== ENCOUNTER 2023-09-22 13:50 | Outpatient (CLI) | payer MEDICARE, SELFPAY ==
[2023-09-22 14:23] LABS: Hematocrit 36.5 % (35.0-42.0); Hemoglobin 11.5 g/dL (11.7-13.8); Mean Corpuscular HGB Conc 31.5 g/dL (32-36); Mean Corpuscular Hemoglobin 31.3 pg (27.0-31.0); Mean Corpuscular Volume 99.5 fL (78.0-102.0); Mean Platelet Volume 11.4 fl (9.2-11.8); Platelet Count Result 244 K/mm3 (150-420); Red Blood Count 3.67 M/mm3 (4.20-5.40); Red Cell Distribution Width 13.4 % (11.6-14.4); White Blood Count 9.4 K/mm3 (4.8-10.8)
[2023-09-22 15:31] LABS: Alanine Aminotransferase 30 U/L (14-59); Albumin Level 3.4 g/dL (3.4-5.0); Alkaline Phosphatase 111 U/L (46-116); Anion Gap 11 mmol/L (4-12); Aspartate Amino Transferase 25 U/L (15-37); Bilirubin,Total 0.4 mg/dL (0.00-1.00); Blood Urea Nitrogen 21 mg/dL (7-18); Calcium 9.7 mg/dL (8.5-10.1); Carbon Dioxide 28 mmol/L (21-32); Chloride 104 mmol/L (98-108); Estimated Glomerular Filt Rate 30; Glucose 114 mg/dL (70-99); Magnesium 1.2 mg/dL (1.8-2.4); NT Pro B Type Natriuretic Pept 332 pg/mL (0-450); Osmolality Calculated 300 mOsm/kg (285-295); Potassium 4.1 mmol/L (3.5-5.1); Sodium 143 mmol/L (136-145); Total Protein 6.2 g/dL (6.4-8.2)
[2023-09-22 15:32] LABS: Band Neutrophils Percent 0 % (0-6); Basophils Absolute Manual 0.09 K/mm3 (0-0.1); Basophils Percent Manual 1 % (0-1); CRP < 0.5 mg/dL (0.0-0.9); Eosinophils Percent Manual 0 % (1-6); Lymphocytes Absolute Manual 0.75 K/mm3 (1.1-4.5); Lymphocytes Percent Manual 8 % (18-44); Monocytes Absolute Manual 0.37 K/mm3 (0.1-0.90); Monocytes Percent Manual 4 % (3-9); Myelocytes Percent 1 %; Neutrophils Absolute Manual 7.99 K/mm3 (1.7-7.2); Neutrophils Percent Manual 85 % (46-73); Total Cells Counted 100
[2023-09-22 15:33] LABS: Platelet Estimate Adequate (Adequate); Promyelocytes Percent 1 %
== END 2023-09-22 13:51 | disposition home or self-care (01) ==
LOC: CHSLAB 13:52
PROVIDERS: PCP Internal Medicine; Visit Provider Internal Medicine
DX: J98.4 Other disorders of lung (principal); I50.9 Heart failure, unspecified; R53.1 Weakness
CPT/HCPCS: 36415; 80053; 83735; 83880; 84100; 85025; 86140

== ENCOUNTER 2023-10-07 07:58 | Outpatient (CLI) | payer MEDICARE, SELFPAY ==
[2023-10-07 08:45] LABS: Alanine Aminotransferase 25 U/L (14-59); Albumin Level 3.4 g/dL (3.4-5.0); Alkaline Phosphatase 63 U/L (46-116); Anion Gap 7 mmol/L (4-12); Aspartate Amino Transferase 19 U/L (15-37); Bilirubin,Total 0.5 mg/dL (0.00-1.00); Blood Urea Nitrogen 30 mg/dL (7-18); Calcium 9.4 mg/dL (8.5-10.1); Carbon Dioxide 30 mmol/L (21-32); Chloride 104 mmol/L (98-108); Estimated Glomerular Filt Rate 30; Glucose 82 mg/dL (70-99); Magnesium 1.6 mg/dL (1.8-2.4); Osmolality Calculated 297 mOsm/kg (285-295); Potassium 3.9 mmol/L (3.5-5.1); Sodium 141 mmol/L (136-145)
== END 2023-10-07 07:59 | disposition home or self-care (01) ==
LOC: CHSLAB 08:03
PROVIDERS: PCP Internal Medicine; Visit Provider Internal Medicine
DX: E61.2 Magnesium deficiency (principal); E86.0 Dehydration
CPT/HCPCS: 36415; 80053; 83735

== ENCOUNTER 2023-10-16 10:04 | Outpatient (CLI) | payer MEDICARE, SELFPAY ==
[2023-10-16 10:21] LABS: Hematocrit 37.4 % (35.0-42.0); Hemoglobin 11.9 g/dL (11.7-13.8); Mean Corpuscular HGB Conc 31.8 g/dL (32-36); Mean Corpuscular Hemoglobin 32.5 pg (27.0-31.0); Mean Corpuscular Volume 102.2 fL (78.0-102.0); Mean Platelet Volume 10.9 fl (9.2-11.8); Platelet Count Result 178 K/mm3 (150-420); Red Blood Count 3.66 M/mm3 (4.20-5.40); Red Cell Distribution Width 14.5 % (11.6-14.4); White Blood Count 10.7 K/mm3 (4.8-10.8)
[2023-10-16 10:38] LABS: Creatinine Urine 188.61 mg/dL (40-278); Total Protein Urine Random 23.9 mg/dL (0.0-11.9); Ur Ttl Prot Creatinine Ratio 0.13 mg/mg (0-0.20)
[2023-10-16 11:05] LABS: Albumin Level 3.5 g/dL (3.4-5.0); Anion Gap 8 mmol/L (4-12); Blood Urea Nitrogen 24 mg/dL (7-18); Calcium 9.5 mg/dL (8.5-10.1); Carbon Dioxide 26 mmol/L (21-32); Chloride 107 mmol/L (98-108); Estimated Glomerular Filt Rate 28; Glucose 68 mg/dL (70-99); Osmolality Calculated 294 mOsm/kg (285-295); Phosphorus 2.8 mg/dL (2.6-4.7); Potassium 3.8 mmol/L (3.5-5.1); Sodium 141 mmol/L (136-145)
[2023-10-17 11:13] LABS: Parathyroid Intact 90 pg/mL (16-77)
[2023-10-18 07:08] LABS: Vitamin D 25 Hydroxy 67 ng/mL (30-100)
== END 2023-10-16 10:05 | disposition home or self-care (01) ==
LOC: CHSLAB 10:07
PROVIDERS: PCP Internal Medicine; Visit Provider Internal Medicine Nephrology
DX: N18.31 Chronic kidney disease, stage 3a (principal); D63.1 Anemia in chronic kidney disease; N18.30 Chronic kidney disease, stage 3 unspecified; I10 Essential (primary) hypertension; E78.5 Hyperlipidemia, unspecified; E21.1 Secondary hyperparathyroidism, not elsewhere classified
CPT/HCPCS: 36415; 80069; 82306; 82570; 83970; 84156; 85027

== ENCOUNTER 2023-11-17 11:16 | Outpatient (CLI) | payer MEDICARE, SELFPAY ==
[2023-11-17 12:26] LABS: Anion Gap 10 mmol/L (4-12); Blood Urea Nitrogen 23 mg/dL (7-18); Calcium 9.8 mg/dL (8.5-10.1); Carbon Dioxide 27 mmol/L (21-32); Chloride 104 mmol/L (98-108); Estimated Glomerular Filt Rate 29; Glucose 110 mg/dL (70-99); Osmolality Calculated 296 mOsm/kg (285-295); Potassium 3.9 mmol/L (3.5-5.1); Sodium 141 mmol/L (136-145)
== END 2023-11-17 11:17 | disposition home or self-care (01) ==
LOC: CHSLAB 11:18
PROVIDERS: PCP Internal Medicine; Visit Provider Internal Medicine Nephrology
DX: N18.30 Chronic kidney disease, stage 3 unspecified (principal); I10 Essential (primary) hypertension; E21.1 Secondary hyperparathyroidism, not elsewhere classified
CPT/HCPCS: 36415; 80048

== ENCOUNTER 2024-01-26 08:42 | Outpatient (CLI) | payer MEDICARE, SELFPAY ==
--- NOTE | ~2024-01-26 | XR_ITS ---
Supine and upright views of the abdomen Clinical history: Diarrhea Findings: Bowel gas pattern is nonspecific. No evidence for obstruction or free air. No abnormal mass lesion or calcification is seen. There is levoscoliosis, with degenerative change of the lumbar spin e. Impression: Nonspecific bowel gas pattern. Reviewed, dictated and finalized at [facility]. Impression: Nonspecific bowel gas pattern.
[2024-01-26 09:14] LABS: Hematocrit 37.6 % (35.0-42.0); Hemoglobin 12.1 g/dL (11.7-13.8); Mean Corpuscular HGB Conc 32.2 g/dL (32-36); Mean Corpuscular Hemoglobin 32.3 pg (27.0-31.0); Mean Corpuscular Volume 100.3 fL (78.0-102.0); Mean Platelet Volume 10.9 fl (9.2-11.8); Platelet Count Result 191 K/mm3 (150-420); Red Blood Count 3.75 M/mm3 (4.20-5.40); Red Cell Distribution Width 13.6 % (11.6-14.4)
[2024-01-26 09:21] LABS: Occult Blood Negative (Negative)
[2024-01-26 09:47] LABS: Band Neutrophils Percent 0 % (0-6); Basophils Absolute Manual 0.09 K/mm3 (0-0.1); Basophils Percent Manual 1 % (0-1); Eosinophils Absolute Manual 0.36 K/mm3 (0.02-0.50); Eosinophils Percent Manual 4 % (1-6); Lymphocytes Absolute Manual 3.24 K/mm3 (1.1-4.5); Lymphocytes Percent Manual 36 % (18-44); Monocytes Percent Manual 10 % (3-9); Neutrophils Absolute Manual 4.41 K/mm3 (1.7-7.2); Neutrophils Percent Manual 49 % (46-73); Total Cells Counted 100
[2024-01-26 09:48] LABS: Platelet Estimate Adequate (Adequate)
[2024-01-26 10:03] LABS: Alanine Aminotransferase 24 U/L (14-59); Albumin Level 3.4 g/dL (3.4-5.0); Alkaline Phosphatase 65 U/L (46-116); Amylase 75 U/L (25-115); Anion Gap 7 mmol/L (4-12); Aspartate Amino Transferase 20 U/L (15-37); Bilirubin,Total 0.5 mg/dL (0.00-1.00); Blood Urea Nitrogen 20 mg/dL (7-18); Calcium 9.6 mg/dL (8.5-10.1); Carbon Dioxide 30 mmol/L (21-32); Chloride 105 mmol/L (98-108); Estimated Glomerular Filt Rate 32; Glucose 87 mg/dL (70-99); Lipase 55 U/L (16-77); Osmolality Calculated 295 mOsm/kg (285-295); Potassium 3.9 mmol/L (3.5-5.1); Sodium 142 mmol/L (136-145)
[2024-01-26 10:22] LABS: Toxigenic C. Diff NEGATIVE (NEGATIVE)
== END 2024-01-26 08:43 | disposition home or self-care (01) ==
PROVIDERS: PCP Internal Medicine; Visit Provider Nurse Practitioner Family
DX: R19.7 Diarrhea, unspecified (principal); K57.20 Diverticulitis of large intestine with perforation and abscess without bleeding; R19.5 Other fecal abnormalities
CPT/HCPCS: 36415; 74018; 80053; 82150; 82272; 83690; 85025; 87045; 87427; 87449; 87493

== ENCOUNTER 2024-02-22 07:58 | Outpatient (CLI) | payer MEDICARE, SELFPAY ==
[2024-02-22 08:40] LABS: Hematocrit 39.8 % (35.0-42.0); Hemoglobin 12.3 g/dL (11.7-13.8); Mean Corpuscular HGB Conc 30.9 g/dL (32-36); Mean Corpuscular Hemoglobin 31.4 pg (27.0-31.0); Mean Corpuscular Volume 101.5 fL (78.0-102.0); Platelet Count Result 186 K/mm3 (150-420); Red Blood Count 3.92 M/mm3 (4.20-5.40); Red Cell Distribution Width 13.3 % (11.6-14.4); White Blood Count 8.8 K/mm3 (4.8-10.8)
[2024-02-22 08:59] LABS: Creatinine Urine 52.08 mg/dL (40-278); Total Protein Urine Random < 7.0 mg/dL (0.0-11.9); Ur Ttl Prot Creatinine Ratio 0.13 mg/mg (0-0.20)
[2024-02-22 09:14] LABS: Albumin Level 3.5 g/dL (3.4-5.0); Anion Gap 8 mmol/L (4-12); Blood Urea Nitrogen 24 mg/dL (7-18); Calcium 9.6 mg/dL (8.5-10.1); Carbon Dioxide 31 mmol/L (21-32); Chloride 106 mmol/L (98-108); Estimated Glomerular Filt Rate 34; Glucose 81 mg/dL (70-99); Osmolality Calculated 303 mOsm/kg (285-295); Phosphorus 3.1 mg/dL (2.6-4.7); Sodium 145 mmol/L (136-145)
[2024-02-23 17:18] LABS: Parathyroid Intact 69 pg/mL (16-77)
== END 2024-02-22 07:59 | disposition home or self-care (01) ==
LOC: CHSLAB 08:00
PROVIDERS: PCP Internal Medicine; Visit Provider Internal Medicine Nephrology
DX: D63.1 Anemia in chronic kidney disease (principal); I10 Essential (primary) hypertension; N18.31 Chronic kidney disease, stage 3a; E21.1 Secondary hyperparathyroidism, not elsewhere classified
CPT/HCPCS: 36415; 80069; 82570; 83970; 84156; 85027

== ENCOUNTER 2024-03-02 09:59 | Outpatient (CLI) | payer MEDICARE, SELFPAY ==
[2024-03-02 10:22] VITALS: BP 133/66; PULSE 78; RESP 14; TEMP 36.6; O2SAT 97; BMI 23.4
[2024-03-02] MEDS: ZOLEDRONIC ACID 5 MG/100 ML 100 ML 400 MG IVPB (10:30)
--- NOTE | 2024-03-02 11:55 | PC.NURSE ---
Patient here for yearly IV Reclast. Education given. NO concerns voiced. Reclast infusion administered. SEE MAR/patient care notes. Tolerated well.
== END 2024-03-02 10:00 | disposition home or self-care (01) ==
PROVIDERS: PCP Internal Medicine; Visit Provider Internal Medicine
DX: M81.0 Age-related osteoporosis without current pathological fracture (principal)
CPT/HCPCS: 96374; J3489

== ENCOUNTER 2024-04-08 15:58 | Outpatient (CLI) | payer MEDICARE, SELFPAY ==
--- NOTE | ~2024-04-08 | US_ITS ---
EXAMINATION: US venous doppler LE RT DATE: 04/08/2024 16:56 INDICATION: Right lower limb swelling. TECHNIQUE: Grayscale ultrasound images without and with compression and Doppler ultrasound images of the right lower extremity veins were obtained. COMPARISON: None. FINDINGS: The visualized portions of right common femoral vein, profunda (deep) femoral vein, femoral vein, pop liteal vein, peroneal veins, posterior tibial veins, and greater saphenous vein outflow are patent. IMPRESSION: 1. No deep venous thrombosis. Reviewed, dictated and finalized at location A. [employer] INSTRU[employer]
[2024-04-08 17:37] LABS: Hematocrit 36.7 % (37.0-47.0); Hemoglobin 11.8 g/dL (12.0-15.0); Mean Corpuscular HGB Conc 32.2 g/dl (32-36); Mean Corpuscular Hemoglobin 32.4 pg (26-34); Mean Corpuscular Volume 100.8 fl (80-100); Mean Platelet Volume 10.9 fl (7.4-10.4); Platelet Count Result 173 k/mm3 (150-375); Red Blood Count 3.64 M/mm3 (4.2-5.4); Red Cell Distribution Width 13.9 % (11.5-14.5); White Blood Count 16.1 K/mm3 (4.5-10.0)
[2024-04-08 18:08] LABS: Alanine Aminotransferase 88 U/L (6-35); Albumin Level 4.1 g/dL (3.5-5.1); Alkaline Phosphatase 154 U/L (38-126); Anion Gap 3 mmol/L (4-12); Aspartate Amino Transferase 99 U/L (14-36); Bilirubin,Total 0.8 mg/dL (0.2-1.3); Blood Urea Nitrogen 32 mg/dL (7-17); CRP 18.7 mg/dL (<1.0); Calcium 9.8 mg/dL (8.4-10.2); Carbon Dioxide 28 mmol/L (22-30); Chloride 105 mmol/L (98-107); Estimated Glomerular Filt Rate 27; Glucose 103 mg/dL (65-110); Potassium 3.9 mmol/L (3.4-5.0); Sodium 136 mmol/L (137-145); Uric Acid 4.8 mg/dL (2.5-7.5)
[2024-04-08 18:12] LABS: Erythrocyte Sedimentation Rate 63 mm/hr (0-20)
--- OUTSIDE RECORDS SUMMARY | 2024-04-12 04:08 | XMS_ITS | Referral Summary ---
Author Organization [facility] [place] [address] Address [address] [place] [address] Care Team Providers Care Ham Clerk Name Role Phone Jason Isaacs MD Primary Care Provider Allergies Active Allergy Reactions Criticality Noted Date Comments Oxycodone Dizziness,Nausea only,Hypotension,Other (See comments) High 10/18/2019 Sulfadiazine Nausea And Vomiting High 06/25/2020 Medications ALPRAZolam (XANAX) 0.5 mg tablet Take 1 tablet (0.5 mg total) by mouth nightly 8 Active atorvastatin (LIPITOR) 20 mg tablet Take 1 tablet (20 mg total) by mouth daily 8 Active predniSONE (DELTASONE) 5 mg tablet 5 mg alt with 10 mg every other day 8 Active leflunomide (ARAVA) 10 mg tabletIndication s:Rheumatoid Arthritis Take 1 tablet (10 mg total) by mouth daily 8 Active omeprazole (PriLOSEC) 40 mg capsule Take 1 capsule (40 mg total) by mouth daily Active ascorbic acid (VITAMIN C) 500 mg tablet,chewable Acti ve calcium citrate-vitamin D3 200 mg calcium -250 unit tablet 1 tablet Active magnesium oxide (MAG-OX) 400 mg (241.3 mg elemental magnesium) tablet Take 1 tablet (400 mg total) by mouth 2 (two) times a day 99 9 Active ferrous sulfate 325 mg (65 mg of elemental iron) tabletIndication s:Iron Deficiency Anemia Take 1 tablet (65 mg of elemental iron total) by mouth 3 (three) times a day with meals Active spironolactone (ALDACTONE) 25 mg tablet 1 Active flecainide (TAMBOCOR) 50 mg tablet TAKE 1 TABLET BY MOUTH TWICE A DAY 180 tablet 3 4 Active Xarelto 15 mg tablet TAKE 1 TABLET BY MOUTH EVERY DAY 90 tablet 3 4 Active montelukast (SINGULAIR) 10 mg tablet Take 1 tablet (10 mg total) by mouth every evening 4 Active cholecalciferol (VITAMIN D-3) 30826 unit capsule Take 1 capsule (10,000 Units total) by mouth daily Active metoprolol XL (TOPROL-XL) 25 mg extended release tabletIndication s:Atrial fibrillation, unspecified type (HCC) TAKE 1 TABLET BY MOUTH TWICE A DAY 180 tablet 3 4 Active Active Problems Problem Noted Date Diagnosed Date SOB (shortness of breath) 06/24/2023 Encounter for monitoring flecainide therapy 01/25 Chronic renal impairment 01/12/2020 PAF (paroxysmal atrial fibrillation) (CMS/HCC) 0 09/04/2017 Essential hypertension 09/04/2017 Rheumatoid arthritis 09/04/2017 Chronic anticoagulation 09/04/2017 Social History Tobacco Use Types Packs/Day Years Used Date Smoking Tobacco: Former Cigarettes Q uit: 07/13/1998 Smokeless Tobacco: Never Tobacco Cessation:Counseling Given: Not Answered Alcohol Use Standard Drinks/Week Comments Yes 2 (1 standard drink = 0.6 oz pur e alcohol) 2 beers a day Personal Safety Answer Date Recorded Getting School Help Needed Not on file 06/24 Comments Unknown Sex and Gender Information Value Date Recorded Sex Assigned at Not on file 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 Gender Identity Not on file Sexual Orientation Not on file Last Filed Vital Signs Vital Sign Reading Time Taken Comments Blood Pressure 110/60 12/31/2023 9:16 AM CDT Pulse 64 12/31/2023 9:16 AM CDT Temperature 36.8 ??C (98.2 ??F) 06/12/2020 11:[address] Respiratory Rate - - Oxygen Saturation 97% 12/31/2023 9:16 AM CDT Inhaled Oxygen Concentration - - Weight 65.8 kg (145 lb) 12/31/2023 9:16 AM CDT Height 175.3 cm (5' 9 ) 12/31/2023 9:16 AM CDT Body Mass Index 21.41 12/31/2023 9:16 AM CDT Plan of Treatment Not on file Insurance MEDICARE [employer] [facility] MEDICARE [facility] Care Teams Ham Clerk Relationship Specialty Start Date End Date Jason Isaacs MD PCP - General Internal Medicine 07/13/18
--- OUTSIDE RECORDS SUMMARY | 2024-04-12 04:08 | XMS_ITS | Continuity of Care Document ---
Author Organization [facility] [address] Address [address] [id number] Care Team Providers Care Senior Account Manager Name Role Phone Jason Isaacs Primary Care Physician Encounter [facility] Financial Number [id number] Date(s): 12/24/23 - 12/24/23 [facility] [address] [address] [facility] [address], [place] [id number] Encounter Diagnosis Rheumatoid arthritis involving multiple sites with positive rheumatoid factor (Discharge Diagnosis) - 12/22/23 Inflammatory polyarthritis(Discharge Diagnosis) - 12/22/23 Therapeutic drug monitoring(Discharge Diagnosis) - 12/22/23 R53.83 Fatigue(Discharge Diagnosis) - 12/22/23 M79.1 Myalgia(Discharge Diagnosis) - 12/22/23 M77.9 Tendonitis(Discharge Diagnosis) - 12/22/23 Lumbar pain with radiation down leg(Discharge Diagnosis) - 12/24/23 Discharge Disposition: Home or Self Care Attending Physician: Matthew Diaz MD Allergies, Adverse Reactions, Alerts Substance Criticality Severity Reaction Reaction Severity Status sulfa drugs Unable to assess criticality Mild Active oxyCODONE Active Assessment and Plan Future Appointments Appointment Date:12/22/2024 11:00:00 AM Scheduled Provider:Matthew Diaz MD Location:[facility] Appointment Type:[facility] EP Established Patient Medications ALPRAZolam 0.5 mg oral tablet 0.5 mg, 1 tablet(s), Oral, daily, PRN, Tablet(s), 0, anxiety Start Date: 06/08/18 Status: Ordered atorvastatin 20 mg oral tablet 20 mg, 1 tablet(s), Oral, daily, 30 tablet(s), Tablet(s), 0 Start Date: 06/08/18 Status: Ordered Citracal 1 tablet(s), Oral, daily, 180 tablet(s), Tablet(s), 0 Start Date: 12/13/19 Status: Ordered Citracal + D 1 tablet(s), Oral, daily with breakfast, 30 tablet(s), Tablet(s), 0 Start Date: 06/08/18 Status: Ordered ferrous sulfate 325 mg (65 mg elemental iron) oral tablet 325 mg, 1 tablet(s), Oral, tid with meals, Tablet(s), 0 Start Date: 12/11/20 Status: Ordered flecainide 50 mg oral tablet 50 mg, 1 tablet(s), Oral, [id number], 180 tablet(s), Tablet(s), 0 Start Date: 12/11/20 Status: Ordered leFLUNomide 10 mg oral tablet 1 tablet(s), Oral, daily, 90 tablet(s), 0, Route to Pharmacy Electronically, [id number], NCPDP_[id number], 175.3, cm, 12/18/22 10:27:00 CDT, Height, 66.5, kg, 12/18/22 10:27:00 CDT, Weight Start Date: 12/01/23 Status: Ordered magnesium oxide 400 mg oral tablet 400 mg, 1 tablet(s), Oral, bid, 14 tablet(s), Tablet(s), 0 Start Date: 12/14/18 Stop Date: 12/28/18 Status: Ordered Metoprolol Succinate ER 25 mg oral tablet, extended release 25 mg, 1 tablet(s), Oral, bid, 60 tablet(s), Tablet CR, 0 Start Date: 12/11/20 Status: Ordered montelukast 10 mg oral tablet 10 mg, 1 tablet(s), Oral, qpm, 30 tablet(s), Tablet(s), 0 Start Date: 12/24/23 Status: Ordered omeprazole 40 mg oral delayed release capsule 40 mg, 1 capsule(s), Oral, daily before breakfast, 30 capsule(s), Capsule(s), 0 Start Date: 06/08/18 Status: Ordered predniSONE 5 mg oral tablet See Instructions, 135 tablet(s), 1, ALTERNATE DAILY BETWEEN TAKING 1 TABLET EVERY MORNING AND 2 TABLETS EVERY MORNING, Route to Pharmacy Electronically, [id number], NCPDP_[id number], Instructions Replace Required Details, 175.3, cm, 12/18/22 10:27:00 CDT, Height, 66.5, kg, 12/18/22 10:27:00 CDT, Weight Start Date: 08/28/23 Status: Ordered spironolactone 25 mg oral tablet 25 mg, 1 tablet(s), Oral, daily, 90 tablet(s), Tablet(s), 0 Start Date: 12/12/21 Status: Ordered Vitamin C 500 mg oral tablet 500 mg, 1 tablet(s), Oral, daily, 30 tablet(s), Tablet(s), 0 Start Date: 06/08/18 Status: Ordered Xarelto 15 mg oral tablet 15 mg, 1 tablet(s), Oral, pm with dinner, 30 tablet(s), 0, Take with Food Start Date: 12/13/19 Status: Ordered Problem List Condition Confirmation Course Effective Dates Status H ealth Status Informant Atrial fibrillation Confirmed Active R70.0 Elevated sed rate Confirmed Active M77.9 Tendonitis Confirmed Active E83.52 Hypercalcemia Confirmed Active E87.6 Hypokalemia Confirmed Active Inflammatory polyarthritis Confirmed Active M79.1 Myalgia Confirmed Active Osteoporosis Confirmed Active R53.83 Fatigue Confirmed Active Therapeutic drug monitoring Confirmed Active Rheumatoid arthritis involving multiple sites with positive rheumatoid factor Confirmed Active E55.9 Vitamin D deficiency Confirmed Active Procedures Procedure Date Related Diagnosis Body Site Status Total knee replacement 1 10/10/19 Completed 1right Vital Signs Most recent to oldest [Reference Range]: 1 Temperature Temporal Artery [35.8-38 Deg C] 36.4 DegC (12/24/23 9:11 AM) Peripheral Pulse Rate [60-100 bpm] 80 bp m (12/24/23 9:11 AM) Blood Pressure [89-139/60-90 mm Hg] 130/ 80mm Hg (12/24/23 9:11 AM) Height 167.7 cm (12/24/23 9:11 AM) Weight 66 kg (12/24/23 9:11 AM) Social History Social History Type Response Alcohol Never alcohol user Substance Abuse Never drug user Smoking Status Never smoker;Never; Tobacco Cessation Counseling Requested N/A entered on: 12/18/22 Sex Note * Event Display: Privacy Practice Authored Date: * Event Display: Consent/Registration Forms * Event Display: Consent/Registration Forms * Event Display: ROI_Correspondence Authored Date: * Event Display: ROI_Correspondence Authored Date: Internal medicine Outpatient Note * Matthew Diaz MD: PERFORM Event Display: Internal Medicine Office/Clinic Note Authored Date: Patient Information Name:MELI VELEZ Address: [address] [place] [phone] Sex:Female Date of :1945 Emergency Contact:YOLANDA VELEZ Location:[facility] [address] Registration Date and Time:12/24/2023 10:34 CDT Primary Care Physician: Jason Isaacs M.D., Attending Physician: Matthew Diaz MD, Chief Complaint follow up History of Present Illness RHEUMATOLOGY NOTE ?? Multiple ongoing problems addressed today.?See lab??and treatment interventions. The patient presents today for evaluation for multiple active medical problems. The problems addressed are noted in the assessment section below. All medications will be reviewed with the patient. The risks to the patient and the the severity of the problems will be documented below. Laboratory studies and Imaging Studies will be ordered as needed.? REVIEW MULTIPLE ISSUES REVIEW SENIOR LIVING MANAGEMENT STRATEGY,,,? Longitudinal care is provided today.?? The patient has serious ongoing issues.?? This office is thecontinuing focal point for these health services. We are providing??continuity of care for multiple complex issues.?? See Assessment/plan section below.?? Follow up visit arranged. ? PCP ,,,,,, JASON CLEMENTS ,,,,FRAILEY RHEUM ,,, RAYMON ?? MEDS ...... LEFLUNOMIDE ?? POTTS ISSUES Amatory polyarthritis Rheumatoid arthritis, seropositive Myalgia Tendinitis Bursitis Therapeutic drug monitoring Vitamin D deficiency Osteoarthritis Right total knee replacement Atrial fibrillation on Xarelto Renal insufficiency Hypokalemia ?? HISTORY of COMPLAINT Nature of complaint,,,,MULTIPLE ISSUES Quality,,,,,,,,,,,,,,,,,,,,,,,,SEE BELOW FOR INDIVIDUAL DISCUSSSION OF EACH ISSUE Severity,,,,,,,,,,,,,,,,,,,,,, SIGNIFICANT RISK ?? PCP,,,,,,,,,,,,,,, DMITRI, NOW MELISSA RHEUM,,,,,,,,,,,RAYMON GI,,,,,,,,,,,,,,,,,, BUSE NEURO,,,,,,,,,,?? DEENA ORTHO ,,,,,,,, SCHROERER ? Labs Rheumatoid Factor: <10.0 (12/18/22) RF Screen: Negative (12/14/18) Cyclic Citrullinated Peptide IgG:??>250??High (12/18/22) FLASH Titer: <1:40 (06/04/10) Sed Rate: 4 mm/hr (12/18/22) C3: 148 (06/04/10) C4: 32 (06/04/10) Uric Acid: 5.8 mg/dL (12/14/18) FLASH Screen: NEGATIVE (08/01/16) ?? RHEUM FACTOR HAS BEEN HIGH AT TIMES CCP IS ALWAYS POSITIVE ?? PAST MEDICATION REVIEW ?AZULFIDINE DID NOTHING ?SHE HAD LIVER TROUBLE WITH THE METHOTREXATE ?TRY ARAVA 10 MG DAILY ?SHE COULD NOT HANDLE THE METHOTREXATE ?SHE TRIED TUMERIC ?WE WILL GO WITH THE ARAVA. Review of Systems General Weight Change >10lbs: No ?Fever: No ?Fatigue: No ?Difficulty Sleeping: No ?BloodTransfusion: No?Psych/Social Feeling blue/discouraged: No ?High anxiety/stress: No ?Loss of friends: No ?Feeling life has no purpose: No ?Feeling others are talking about you: No ?Feeling fear: No ?Hearing voices: No ?Marital or relationship problems: No ?tie cutter awakenings: No?Head & Neck ROS Visual Changes (Not Glasses): No ?Dizziness: No ?Double vision: No ?Sinus problems:No ?Frequent persistent nosebleeds: No ?Ear pain: No ?Trouble hearing: No ?Ringing in Ears: No ?Hoarseness: No ?Persistent sore throat: No ?Mouth sores: No ?Swollen glands (Frequent): No?Kidney/Bladder UTI: No ?Urinary Incontinence: No ?Urinary Hesitancy: No ?Frequent Urination: No ?Frequent urination at night: No ?Difficulty urinating: No ?Urinary Urgency: No ?Urinary Retention: No ?Blood in urine: No?Respiratory/Lungs Stop breathing during sleep: No ?Shortness of Breath: No ?Coughing up blood: No ?Wheezing: No ?Cough.: No ?Sore Throat: No ?Snoring: No ?Daytime sleepiness: No?Skeletal Gout: No ?Back Pain (Major): Yes ?Neck Pain (Major): No ?Weakness of arm or leg: No ?Joints Swelling/Stiffness: No ?Deformities of Back/Extremities: No ?Leg swelling: No ?Edema: No?Heart/Vascular Chest discomfort/tightness: No ?Irregular rapid heart beat: No ?Smothering feeling at night: No ?Ankle swelling: Yes ?Light headed: No ?Fainting episodes: No ?Varicose Veins: No ?Leg Pain with Walking: No ?Color/Temperature Changes of Extremities: No ?Leg Swelling ROS: No?Neuro Numbness or tingling: No ?Severe frequent headaches: No ?Abnormal coordination: No ?Trouble with speech: No ?Forgetfulness/confusion: No?Stomach/Bowel Black/Bloody stools: No ?Nausea/Vomiting (Frequent): No ?Frequent heart burn/acid (GERD): No ?Abdominal pain.: No ?Diarrhea (Frequent): Yes ?Constipation.: No ?Difficulty swallowing: No ?Vomiting blood: No?Skin & Hair Changes in hair/hair loss: No ?Major skin problems: No ?Wounds that will not heal: No ?Persistent rash: No ?Changes in moles: No?Reproduction Inability to reach climax: No ?Infertility: No ?Painful intercourse: No ?Decreased sexual desire: No ?Sexually Transmitted Diseases: No?Women Breast pain/lumps: No ?Pelvic Pain: No ?Vaginal discharge: No ?Vaginal dryness: No ?Frequent sweats/hot flashes: No ?Menstrual problems: No ?Menopause: No ? Problems: No ?Baby weighing 9lbs or more: No?? Vitals and Measurements Vital Signs Height: 167.7 cm Height Inches Conversion: 66 Weight: 66 kg Weight in Pounds (kg conversion): 145.2 Body Surface Area: 1.7534 m2 Body Mass Index: 23.47 kg/m2 Temperature Temporal Artery: 36.4 DegC Systolic Blood Pressure: 130 mm Hg Diastolic Blood Pressure: 80 mm Hg Peripheral Pulse Rate: 80 bpm Oxygen Saturation: 100 % Primary Pain Comments: low back pain HRA Pain Present: Yes Physical Exam ? Rheumatology:?? CERVICAL SPINES:??normal range of motion,??normal flexion and extension,??normal rotations.?? THORACIC SPINE:??Normal examination. No swelling or tenderness. Normal ROM.?? SACROILIAC:??No tenderness or spasm.?? LUMBAR SPINES:??STIFF AND SORE LUMBAR,,,,,NEEDS IMAGING UPPER EXTREMITY:??Bilateral examination. Mild swelling and tenderness. Mild decrease in ROM??.?? LOWER EXTREMITY:??Bilateral examination. Mild swelling and tenderness. Mild decrease in ROM.?? SHOULDERS:??Bilateral exam. Mild swelling and tenderness. Mild decrease in ROM.?? ELBOWS:??Bilateral examination. Mild swelling and tenderness. Mild decrease in ROM.?? WRISTS: Bilateral examination. Mild swelling and tenderness. Mild decrease in ROM.?? HANDS:??Bilateral examination. DIP, PIP, MCP, Wrist, Thumb evaluated. Mild swelling and tenderness.Mild decrease in ROM.??HANDS SHOW SOME INFLAMMATION, SCATTERED NODULES HIPS:??Bilateral examination. Mild swelling and tenderness. Mild decrease in ROM. No trochanteric bursitis.?? KNEES:??Bilateral examination.??LEFT KNEE IS OK,,,,Mild swelling and tenderness. Mild decrease in ROM.??,,,,RIGHT IS A TOTAL KNEE REPLACEMENT ANKLES:??Bilateral examination. Mild swelling and tenderness. Mild decrease in ROM.?? FEET:??Bilateral exam is done. Midfoot, MTP, IP toes evaluated. Mild swelling and tenderness. Mild decrease in range of motion.?? FIBROMYALGIA TENDER POINTS:??The 18 fibromyalgia trigger points were tested and were found to be negative. The count is 0/18.? Examination:?? General Examination::?? GENERAL??Patient appears well and healthy, NAD. Female Patient.? RESPIRATORY??Normal respiratory effort. Clear to auscultation bilaterally. Good air movement.?? CARDIOVASCULAR??S1 S2 normal. Regular rhythm. No extrasystoles.??No murmurs, rubs or gallops.??Carotids 2+, no bruit. No JVD.? EXTREMITY??No cyanosis, clubbing, or edema.?? MUSCULOSKELETAL??No kyphosis. No scoliosis. No tenderness. No muscle atrophy or spasm.?? SKIN??No rashes.??No skin lesions noted.?? NEUROLOGIC??No focal deficits. Motor normal 5/5, upper and lower extremity. Sensory normal. No tremor or cogwheeling..?? Assessment/Plan 1.??Rheumatoid arthritis involving multiple sites with positive rheumatoid factor Check for progression of underlying seropositive rheumatoid disease. ??Go over treatment strategies 2.??Inflammatory polyarthritis For progression of inflammatory synovitis. ??See lab work. 3.??Therapeutic drug monitoring Review medication risks and benefits??and??see lab. 4.??R53.83 Fatigue Check for progression of underlying issues. ??Watch for worsening fatigue 5.??M79.1 Myalgia Check CK. ??Check for weakness and tenderness. 6.??M77.9 Tendonitis Low impact exercise. ??Yoga. ??Water exercise. 7.??Lumbar pain with radiation down leg BOTH LEGS GO NUMB,,,,NERVY PAIN? Orders (Last 48 Hours): ???CBC with Differential, 12/24/23, Blood, ROUTINE, Routine, Order for Future Visit, Nurse Collect, Print Label, Rheumatoid arthritis involving multiple sites with positive rheumatoid factor Inflammatory polyarthritis Therapeutic drug monitoring R53.83 Fatigue M79.1 My... ???Comprehensive Metabolic Profile(CMP), 12/24/23, Blood, ROUTINE, Routine, Order for Future Visit,Nurse Collect, Print Label, Rheumatoid arthritis involving multiple sites with positive rheumatoid factor Inflammatory polyarthritis Therapeutic drug monitoring R53.83 Fatigue M79.1 My... ???Creatine Kinase(CPK (CK Total)), 12/24/23, Blood, ROUTINE, Routine, Order for Future Visit, Nurse Collect, Print Label, Rheumatoid arthritis involving multiple sites with positive rheumatoid factor Inflammatory polyarthritis Therapeutic drug monitoring R53.83 Fatigue M79.1 My... ???Cyclic Citrullinated Peptide (CCP)(CCP), 12/24/23, Blood, ROUTINE, Routine, Order for Future Visit, Nurse Collect, Print Label, Rheumatoid arthritis involving multiple sites with positive rheumatoid factor Inflammatory polyarthritis Therapeutic drug monitoring R53.83 Fatigue M79.1 My... ???LUMBAR SPINE AP/LAT 2/3 VIEWS, LUMBAR PAIN, 12/24/23, ROUTINE, Rheumatoid arthritis involving multiple sites with positive rheumatoid factor Inflammatory polyarthritis Therapeutic drug monitoring R53.83 Fatigue M79.1 Myalgia M77.9 Tendonitis Lumbar pain with radiation d... ???Return to Clinic - Established Patient, *Est. 06/24/24 +/- 28 day(s), Order for Future Visit, [facility], [facility] ???Rheumatoid Factor, Quantitative, 12/24/23, Blood, ROUTINE, Routine, Order for Future Visit, Nurse Collect, Print Label, Rheumatoid arthritis involving multiple sites with positive rheumatoid factor Inflammatory polyarthritis Therapeutic drug monitoring R53.83 Fatigue M79.1 My... ???SACRO ILIAC JOINTS COMPLETE, LUMBAR PAIN, 12/24/23, ROUTINE, Rheumatoid arthritis involving multiple sites with positive rheumatoid factor Inflammatory polyarthritis Therapeutic drug monitoring R53.83 Fatigue M79.1 Myalgia M77.9 Tendonitis Lumbar pain with radiation d... ???Sedimentation Rate(Sed Rate), 12/24/23, Blood, ROUTINE, Routine, Order for Future Visit, Nurse Collect, Print Label, Rheumatoid arthritis involving multiple sites with positive rheumatoid factor Inflammatory polyarthritis Therapeutic drug monitoring R53.83 Fatigue M79.1 My... ???Uric Acid, 12/24/23, Blood, ROUTINE, Routine, Order for Future Visit, Nurse Collect, Print Label, Rheumatoid arthritis involving multiple sites with positive rheumatoid factor Inflammatory polyarthritis Therapeutic drug monitoring R53.83 Fatigue M79.1 My... ?? We are going to address multiple serious medial issues as noted above. This evaluation will requirelaboratory and other testing. Those tests will have to be evaluated carefully and the appropriate literature reviewed. The patient's other physicians will be consulted as necessary. The data complexity is extensive. Management options are extensive. Therapy options are extensive. Literature review was done using text and internet sources. Risk to the patient is extensive. Old records were reviewed. The patient will be contacted by phone or letter when data is received.? LETTER COMMUNICATION IS DONE FOR ALL DATA. ?? Please see the orders for details. ?? A COMPLETE CHART REVIEW AND CHART PREP WAS DONE. EARLIER DATA WAS REVIEWED.? DIAGNOSES ADDRESSED ARE NOTED ABOVE WITH AN INDIVIDUAL COMMENT ON HOW THE PROBLEM WAS ADDRESSED DURING THE VISIT ?? NEW DATA REVIEWED.?? SEE ORDERS FOR DETAILS.? ANALYZE NEW DATA ??IN DETAIL. ?? RISK TO THE PATIENT IS HIGH ? Future Order Details CBC with Differential, 12/24/23, Blood, ROUTINE, Routine, Order for Future Visit, Nurse Collect, Print Label, Rheumatoid arthritis involving multiple sites with positive rheumatoid factor Inflammatory polyarthritis Therapeutic drug monitoring R53.83 Fatigue M79.1 My... Comprehensive Metabolic Profile, 12/24/23, Blood, ROUTINE, Routine, Order for Future Visit, Nurse Collect, Print Label, Rheumatoid arthritis involving multiple sites with positive rheumatoid factor Inflammatory polyarthritis Therapeutic drug monitoring R53.83 Fatigue M79.1 My... Creatine Kinase, 12/24/23, Blood, ROUTINE, Routine, Order for Future Visit, Nurse Collect, Print Label, Rheumatoid arthritis involving multiple sites with positive rheumatoid factor Inflammatory polyarthritis Therapeutic drug monitoring R53.83 Fatigue M79.1 My... Cyclic Citrullinated Peptide (CCP), 12/24/23, Blood, ROUTINE, Routine, Order for Future Visit, Nurse Collect, Print Label, Rheumatoid arthritis involving multiple sites with positive rheumatoid factor Inflammatory polyarthritis Therapeutic drug monitoring R53.83 Fatigue M79.1 My... Rheumatoid Factor, Quantitative, 12/24/23, Blood, ROUTINE, Routine, Order for Future Visit, Nurse Collect, Print Label, Rheumatoid arthritis involving multiple sites with positive rheumatoid factor Inflammatory polyarthritis Therapeutic drug monitoring R53.83 Fatigue M79.1 My... Sedimentation Rate, 12/24/23, Blood, ROUTINE, Routine, Order for Future Visit, Nurse Collect, PrintLabel, Rheumatoid arthritis involving multiple sites with positive rheumatoid factor Inflammatorypolyarthritis Therapeutic drug monitoring R53.83 Fatigue M79.1 My... Uric Acid, 12/24/23, Blood, ROUTINE, Routine, Order for Future Visit, Nurse Collect, Print Label, Rheumatoid arthritis involving multiple sites with positive rheumatoid factor Inflammatory polyarthritis Therapeutic drug monitoring R53.83 Fatigue M79.1 My... LUMBAR SPINE AP/LAT 2/3 VIEWS, LUMBAR PAIN, 12/24/23, ROUTINE, Rheumatoid arthritis involving multiple sites with positive rheumatoid factor Inflammatory polyarthritis Therapeutic drug monitoring R53.83 Fatigue M79.1 Myalgia M77.9 Tendonitis Lumbar pain with radiation d... SACRO ILIAC JOINTS COMPLETE, LUMBAR PAIN, 12/24/23, ROUTINE, Rheumatoid arthritis involving multiple sites with positive rheumatoid factor Inflammatory polyarthritis Therapeutic drug monitoring R53.83 Fatigue M79.1 Myalgia M77.9 Tendonitis Lumbar pain with radiation d... Problem List/Past Medical History Ongoing Atrial fibrillation E55.9 Vitamin D deficiency E83.52 Hypercalcemia E87.6 Hypokalemia Inflammatory polyarthritis M77.9 Tendonitis M79.1 Myalgia Osteoporosis R53.83 Fatigue R70.0 Elevated sed rate Rheumatoid arthritis involving multiple sites with positive rheumatoid factor Therapeutic drug monitoring Historical No qualifying data Procedure/Surgical History ???Total knee replacement (10/10/2019) Medications Unchanged ALPRAZolam (ALPRAZolam 0.5 mg oral tablet)1 tablet(s) By mouth daily as needed anxiety. ascorbic acid (Vitamin C 500 mg oral tablet)1 tablet(s) By mouth daily. atorvastatin (atorvastatin 20 mg oral tablet)1 tablet(s) By mouth daily. calcium citrate (Citracal)1 tablet(s) By mouth daily. calcium-vitamin D (Citracal + D)1 tablet(s) By mouth daily with breakfast. ferrous sulfate (ferrous sulfate 325 mg (65 mg elemental iron) oral tablet)1 tablet(s) By mouth 3 times a day with meals. flecainide (flecainide 50 mg oral tablet)1 tablet(s) By mouth every 12 hours. leFLUNomide (leFLUNomide 10 mg oral tablet)1 tablet(s) By mouth daily. Refills: 0. magnesium oxide (magnesium oxide 400 mg oral tablet)1 tablet(s) By mouth 2 times a day for 14 day(s). metoprolol (Metoprolol Succinate ER 25 mg oral tablet, extended release)1 tablet(s) By mouth 2 times a day. montelukast (montelukast 10 mg oral tablet)1 tablet(s) By mouth once a day (in the evening). omeprazole (omeprazole 40 mg oral delayed release capsule)1 capsule(s) By mouth daily before breakfast. predniSONE (predniSONE 5 mg oral tablet)ALTERNATE DAILY BETWEEN TAKING 1 TABLET EVERY MORNING AND 2TABLETS EVERY MORNING. Refills: 1. rivaroxaban (Xarelto 15 mg oral tablet)1 tablet(s) By mouth every evening with dinner. Take with Food. spironolactone (spironolactone 25 mg oral tablet)1 tablet(s) By mouth daily. Allergies sulfa drugs oxyCODONE Social History Alcohol Never alcohol user, 12/18/2022 Substance Abuse Never drug user, 12/18/2022 Tobacco Never smoker, Smokeless Tobacco use: Never. N/A Cessation Counseling., 12/18/2022 Family History ?Mother ?Positive ?Arthritis ?Father ?Positive ?Arthritis ?Mother ?Positive ?Tendonitis ?Father ?Positive ?Tendonitis ? POC Results Event Name?? Event Result?? Date/Time?? Oxygen Saturation 100 % 12/24/23 09:11:00 ? Voice to Text Technology Disclaimer This note may contain text inserted via Dragon or other voice to text assistive technology and airline lounge receptionist, variances may occur. Outpatient Summary note * Simran Eason RN: PERFORM Event Display: Ambulatory Patient Summary Authored Date: [id number] MELI VELEZ :1945 Visit Date:12/24/2023 [facility] Visit Instructions Your Diagnosis Rheumatoid arthritis involving multiple sites with positive rheumatoid factor Inflammatory polyarthritis Therapeutic drug monitoring R53.83 Fatigue M79.1 Myalgia M77.9 Tendonitis Lumbar pain with radiation down leg Your Care Team Attending Physician - Matthew Diaz MD Primary Care Physician - Jason Isaacs M.D. Procedure History ???Total knee replacement (10/10/2019) Discharge Vitals Vital Signs Height: 167.7 cm Height Inches Conversion: 66 Weight: 66 kg Weight in Pounds (kg conversion): 145.2 Body Surface Area: 1.7534 m2 Body Mass Index: 23.47 kg/m2 Temperature Temporal Artery: 36.4 DegC Systolic Blood Pressure: 130 mm Hg Diastolic Blood Pressure: 80 mm Hg Peripheral Pulse Rate: 80 bpm Oxygen Saturation: 100 % Primary Pain Comments: low back pain HRA Pain Present: Yes What to do next Scheduled Follow-Up Appointments 2024 11:00 AM CDT ?? With: Matthew Diaz MD Where: [facility] [address] [id number] You Need to Complete the Following CBC with Differential, 12/24/23, Blood, ROUTINE, Routine, Order for Future Visit, Nurse Collect, Print Label, Rheumatoid arthritis involving multiple sites with positive rheumatoid factor Inflammatory polyarthritis Therapeutic drug monitoring R53.83 Fatigue M79.1 My... Comprehensive Metabolic Profile, 12/24/23, Blood, ROUTINE, Routine, Order for Future Visit, Nurse Collect, Print Label, Rheumatoid arthritis involving multiple sites with positive rheumatoid factor Inflammatory polyarthritis Therapeutic drug monitoring R53.83 Fatigue M79.1 My... Creatine Kinase, 12/24/23, Blood, ROUTINE, Routine, Order for Future Visit, Nurse Collect, Print Label, Rheumatoid arthritis involving multiple sites with positive rheumatoid factor Inflammatory polyarthritis Therapeutic drug monitoring R53.83 Fatigue M79.1 My... Cyclic Citrullinated Peptide (CCP), 12/24/23, Blood, ROUTINE, Routine, Order for Future Visit, Nurse Collect, Print Label, Rheumatoid arthritis involving multiple sites with positive rheumatoid factor Inflammatory polyarthritis Therapeutic drug monitoring R53.83 Fatigue M79.1 My... Rheumatoid Factor, Quantitative, 12/24/23, Blood, ROUTINE, Routine, Order for Future Visit, Nurse Collect, Print Label, Rheumatoid arthritis involving multiple sites with positive rheumatoid factor Inflammatory polyarthritis Therapeutic drug monitoring R53.83 Fatigue M79.1 My... Sedimentation Rate, 12/24/23, Blood, ROUTINE, Routine, Order for Future Visit, Nurse Collect, PrintLabel, Rheumatoid arthritis involving multiple sites with positive rheumatoid factor Inflammatorypolyarthritis Therapeutic drug monitoring R53.83 Fatigue M79.1 My... Uric Acid, 12/24/23, Blood, ROUTINE, Routine, Order for Future Visit, Nurse Collect, Print Label, Rheumatoid arthritis involving multiple sites with positive rheumatoid factor Inflammatory polyarthritis Therapeutic drug monitoring R53.83 Fatigue M79.1 My... LUMBAR SPINE AP/LAT 2/3 VIEWS, LUMBAR PAIN, 12/24/23, ROUTINE, Rheumatoid arthritis involving multiple sites with positive rheumatoid factor Inflammatory polyarthritis Therapeutic drug monitoring R53.83 Fatigue M79.1 Myalgia M77.9 Tendonitis Lumbar pain with radiation d... SACRO ILIAC JOINTS COMPLETE, LUMBAR PAIN, 12/24/23, ROUTINE, Rheumatoid arthritis involving multiple sites with positive rheumatoid factor Inflammatory polyarthritis Therapeutic drug monitoring R53.83 Fatigue M79.1 Myalgia M77.9 Tendonitis Lumbar pain with radiation d... Referral Information Referral Information ? No Results Found ? Medications What How Much When Instructions Unchanged ALPRAZolam (ALPRAZolam 0.5 mg oral tablet) 1 tablet(s) By mouth Daily as needed for anxiety Contact prescribing physician if questions or concerns ?? Unchanged ascorbic acid (Vitamin C 500 mg oral tablet) 1 tablet(s) By mouth Daily Contact prescribing physician if questions or concerns ?? Unchanged atorvastatin (atorvastatin 20 mg oral tablet) 1 tablet(s) By mouth Daily Contact prescribing physician if questions or concerns ?? Unchanged calcium citrate (Citracal) 1 tablet(s) By mouth Daily Contact prescribing physician if questions or concerns ?? Unchanged calcium-vitamin D (Citracal + D) 1 tablet(s) By mouth Daily with breakfast Contact prescribing physician if questions or concerns ?? Unchanged ferrous sulfate (ferrous sulfate 325 mg (65 mg elemental iron) oral tablet) 1 tablet(s) By mouth 3 times a day with meals Contact prescribing physician if questions or concerns ?? Unchanged flecainide (flecainide 50 mg oral tablet) 1 tablet(s) By mouth Every 12 hours Contact prescribing physician if questions or concerns ?? Unchanged leFLUNomide (leFLUNomide 10 mg oral tablet) 1 tablet(s) By mouth Daily Contact prescribing physician if questions or concerns ?? Unchanged magnesium oxide (magnesium oxide 400 mg oral tablet) 1 tablet(s) By mouth 2 times a day Duration: 14 day(s) Contact prescribing physician if questions or concerns ?? Unchanged metoprolol (Metoprolol Succinate ER 25 mg oral tablet, extended release) 1 tablet(s) By mouth 2 times a day Contact prescribing physician if questions or concerns ?? Unchanged montelukast (montelukast 10 mg oral tablet) 1 tablet(s) By mouth Once a day (in the evening) Contact prescribing physician if questions or concerns ?? Unchanged omeprazole (omeprazole 40 mg oral delayed release capsule) 1 capsule(s) By mouth Daily before breakfast Contact prescribing physician if questions or concerns ?? Unchanged predniSONE (predniSONE 5 mg oral tablet) See instructions ALTERNATE DAILY BETWEEN TAKING 1 TABLET EVERY MORNING AND 2 TABLETS EVERY MORNING Contact prescribing physician if questions or concerns ?? Unchanged rivaroxaban (Xarelto 15 mg oral tablet) 1 tablet(s) By mouth Every evening with dinner Take with Food Contact prescribing physician if questions or concerns ?? Unchanged spironolactone (spironolactone 25 mg oral tablet) 1 tablet(s) By mouth Daily Contact prescribing physician if questions or concerns ?? Medications and Immunizations Administered Medication Administrations ? No Results Found ? Allergies sulfa drugs oxyCODONE Problems Ongoing Atrial fibrillation E55.9 Vitamin D deficiency E83.52 Hypercalcemia E87.6 Hypokalemia Inflammatory polyarthritis M77.9 Tendonitis M79.1 Myalgia Osteoporosis R53.83 Fatigue R70.0 Elevated sed rate Rheumatoid arthritis involving multiple sites with positive rheumatoid factor Therapeutic drug monitoring PatientStated No qualifying data Historical No qualifying data Common Emergency Awareness Tips IS IT A STROKE? Act FAST and Check for these signs: FACE Does the face look uneven? ARM Does one arm drift down? SPEECH Does their speech sound strange? TIME Call at any sign of stroke Voice to Text Technology Disclaimer This note may contain text inserted via Dragon or other voice to text assistive technology and airline lounge receptionist, variances may occur. Patient Care team information Care Team Personnel Name: Matthew Diaz MD Position: Physician - Internal Medicine Member Role: Specialist Physician Address: Address: [address] [place] [address] Name: Jason Isaacs M.D. Position: [facility] FAX ONLY - MD NOT ON STAFF Member Role: Primary Care Physician Address: Address: [address] [place] [address] Name: Matthew Diaz MD Position: Physician - Internal Medicine Med Service: Command And Control Specialist Senior Account Manager Role: Attending Physician Address: Address: [address] [place] [address] Care Team Related Persons Name: YOLANDA VELEZ Address: home [address] [place], [place] [id number]
--- OUTSIDE RECORDS SUMMARY | 2024-04-12 04:08 | XMS_ITS | Continuity of Care Document ---
Author Organization [facility] [address] Address [address] [facility] [address], [place] [id number] Care Team Providers Care Porcelain Turner Name Role Phone Jason Torres Primary Care Physician [phone] Encounter [facility] Financial Number [id number] Date(s): 12/18/22 - 12/18/22 [facility] [address] [facility] [address], [place] [id number] Encounter Diagnosis Rheumatoid arthritis involving multiple sites with positive rheumatoid factor (Discharge Diagnosis) - 12/17/22 Inflammatory polyarthritis(Discharge Diagnosis) - 12/17/22 M79.1 Myalgia(Discharge Diagnosis) - 12/17/22 M77.9 Tendonitis(Discharge Diagnosis) - 12/17/22 R53.83 Fatigue(Discharge Diagnosis) - 12/17/22 Therapeutic drug monitoring(Discharge Diagnosis) - 12/17/22 Osteoporosis(Discharge Diagnosis) - 12/18/22 Discharge Disposition: Home or Self Care Attending Physician: Matthew Diaz MD Allergies, Adverse Reactions, Alerts Substance Reaction Severity Status sulfa drugs Mild Active oxyCODONE Active Assessment and Plan Future Appointments Appointment Date:12/24/2023 11:00:00 AM Scheduled Provider:Matthew Diaz MD Location:[facility] 43 Appointment Type:CIMR EP Established Patient Medications [...] oral tablet 50 mg, 1 tablet(s), Oral, [id number], 180 tablet(s), Tablet(s), 0 Start Date: 12/11/20 Status: Ordered leflunomide 10 mg oral tablet 1 tablet(s), Oral, daily, 90 tablet(s), 0, 0, Route to Pharmacy Electronically, [facility]/pharmacy #[id number], NCPDP_ID-[id number], 170.3, cm, 12/12/21 10:49:00 CDT, Height, 70, kg, 12/12/21 10:49:00 CDT, Weight Start Date: 12/15/22 Stop Date: 03/15/23 Status: Ordered magnesium oxide 400 mg oral tablet 400 mg, 1 tablet(s), Oral, bid, 14 tablet(s), Tablet(s), 0 Start Date: 12/14/18 Stop Date: 12/28/18 Status: Ordered Metoprolol Succinate ER 25 mg oral tablet, extended release 25 mg, 1 tablet(s), Oral, bid, 60 tablet(s), Tablet CR, 0 Start Date: 12/11/20 Status: Ordered omeprazole 40 mg oral delayed release capsule 40 mg, 1 capsule(s), Oral, daily before breakfast, 30 capsule(s), Capsule(s), 0 Start Date: 06/08/18 Status: Ordered predniSONE 5 mg oral tablet See Instructions, 135 tablet(s), 1, ALTERNATE DAILY BETWEEN TAKING 1 TABLET EVERY MORNING AND 2 TABLETS EVERY MORNING, Route to Pharmacy Electronically, [facility] STORE [id number], NCPDP_ID-[id number], Instructions Replace Required Details, 170.3, cm, 12/12/2021 1049, Height, 70, kg, 12/12/2021 1049, Weight Start Date: 08/14/22 Status: Ordered spironolactone 25 mg oral tablet [...] Temporal Artery [35.8-38 Deg C] 36.4 DegC (12/18/22 10:24 AM) Peripheral Pulse Rate [60-100 bpm] 77 bp m (12/18/22 10:24 AM) Blood Pressure [89-139/60-90 mm Hg] 130/ 80mm Hg (12/18/22 10:24 AM) Height 175.3 cm (12/18/22 10:24 AM) Weight 66.5 kg (12/18/22 10:24 AM) Social History Social History Type Response Alcohol Never alcohol user Substance Abuse Never drug user Smoking Status Never smoker;Never; Tobacco Cessation Counseling Requested N/A entered on: 12/18/22 Sex Note * Event Display: Consent/Registration Forms Authored Date: * Event Display: Consent/Registration Forms Authored Date: * Event Display: Privacy Practice Authored Date: * Event Display: ROI_Correspondence Authored Date: * Event Display: ROI_Correspondence Authored Date: Internal medicine Outpatient Note * Matthew Diaz MD: PERFORM Event Display: Internal Medicine Office/Clinic Note Authored Date: Patient Information Name:MELI VELEZ Address: [address] [place] [phone] Sex:Female Date of :1945 Emergency Contact:YOLANDA VELEZ Location:[facility] 43 Registration Date and Time:12/18/2022 10:20 CDT Primary Care Physician: Jason Torres M.D., Attending Physician: Matthew Diaz MD, Chief Complaint follow up History of Present Illness RHEUMATOLOGY NOTE ?? PCP ,,,,,, JASON TORRES CARD ,,,,FRAILEY RHEUM ,,, RAYMNO ?? MEDS ...... LEFLUNOMIDE ?? POTTS ISSUES Amatory polyarthritis Rheumatoid arthritis, seropositive Myalgia Tendinitis Bursitis Therapeutic drug monitoring Vitamin D deficiency Osteoarthritis Right total knee replacement Atrial fibrillation on Xarelto Renal insufficiency Hypokalemia ?? 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 SEE LAB ? FIRST THING IN THE AM,,,,,QUADS ARE SORE Context,,,,,,,,,,,,,,,,,,,,,,,,BETTER WITH EXERCISE Modifying factors,,,,,,,,MEDICATIONS ARE OK Associated signs,,,,,,,,,SHE HELD THE ARAVA,,,,,OK TO RESTART...SHE WOULD PREFER TO WAIT, ,,,,,,SO,SHE WILL LET ME KNOW Timing,,,,,,,,,,,,,,,,,,,,,,,,VARY DAY TO DAY ?? PCP,,,,,,,,,,,,,,, DMITRI, NOW MELISSA RHEUM,,,,,,,,,,,RAYMON GI,,,,,,,,,,,,,,,,,, BUSE NEURO,,,,,,,,,,?? DEENA ORTHO ,,,,,,,, SCHROERER ?? 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: No?Head & Neck ROS Visual Changes [...] sleepiness: No?Skeletal Gout: No ?Back Pain (Major): No ?Neck Pain (Major): No ?Weakness of arm or leg: No ?Joints Swelling/Stiffness: No ?Deformities of Back/Extremities: No ?Leg swelling: No ?Edema: No?Heart/Vascular Chest discomfort/tightness: No ?Irregular rapid heart beat: No ?Smothering feeling at night: No ?Ankle swelling: No ?Light headed: No ?Fainting episodes: No ?Varicose Veins: No ?Leg Pain with Walking: No ?Color/Temperature Changes of Extremities: No ?Leg SwellingROS: No?Neuro Numbness or tingling: No ?Severe frequent headaches: No ?Abnormal coordination: No ?Trouble with speech: No ?Forgetfulness/confusion: No?Stomach/Bowel Black/Bloody stools: No ?Nausea/Vomiting (Frequent): No ?Frequent heart burn/acid (GERD): No ?Abdominal pain.: No ?Diarrhea (Frequent): No ?Constipation.: No ?Difficulty swallowing: No ?Vomiting blood: No?Skin & Hair Changes in hair/hair loss: No ?Major skin problems: No ?Wounds that will not heal: No ?Persistent rash: No ?Changes in moles: No?Reproduction Inability to have an erection: No ?Inability to reach climax: No ?Infertility: No ?Painful intercourse: No ?Decreased sexual desire: No ?Sexually Transmitted Diseases: No?Women Breast pain/lumps: No ?Pelvic Pain: No ?Vaginal discharge: No ?Vaginal dryness: No ?Frequent sweats/hot flashes: No ?Menstrual problems: No ?Menopause: No ? Problems: No ?Baby weighing 9lbs or more: No?? Vitals and Measurements Vital Signs Height: 175.3 cm Height Inches Conversion: 69 Weight: 66.5 kg Weight in Pounds (kg conversion): 146.3 Body Surface Area: 1.7995 m2 Body Mass Index: 21.64 kg/m2 Temperature Temporal Artery: 36.4 DegC Systolic Blood Pressure: 130 mm Hg Diastolic Blood Pressure: 80 mm Hg Peripheral Pulse Rate: 77 bpm Oxygen Saturation: 97 % Primary Pain Location: Generalized HRA Pain Present: Yes Physical Exam Rheumatology:?? CERVICAL SPINES:??normal range of motion,??normal flexion and extension,??normal rotations.?? THORACIC SPINE:??Normal examination. No swelling or tenderness. Normal ROM.?? SACROILIAC:??No tenderness or spasm.?? LUMBAR SPINES:??normal forward and lateral bending,??no sacroiliac joint tenderness,??SLR unremarkable.?? UPPER EXTREMITY:??Bilateral examination. Mild swelling and tenderness. [...] decrease in ROM. No trochanteric bursitis.?? KNEES:??Bilateral examination. LEFT KNEE IS OK,,,,Mild swelling and tenderness. Mild [...] involving multiple sites with positive rheumatoid factor Review response to medication. ??Review medication risks and benefits?? Ordered: .34918 Office Visit Level 4 Est CBC with Differential Comprehensive Metabolic Profile Creatine Kinase Cyclic Citrullinated Peptide (CCP) Return to Clinic - Established Patient Rheumatoid Factor, Quantitative Sedimentation Rate ?? 2.??Inflammatory polyarthritis Go over long-term management of inflammatory synovitis. Ordered: .[id number] Office Visit Level 4 Est CBC with Differential Comprehensive Metabolic Profile Creatine Kinase Cyclic Citrullinated Peptide (CCP) Return to Clinic - Established Patient Rheumatoid Factor, Quantitative Sedimentation Rate ?? 3.??M79.1 Myalgia Check CK. ??Check for weakness and tenderness Ordered: .[id number] Office Visit Level 4 Est CBC with Differential Comprehensive Metabolic Profile Creatine Kinase Cyclic Citrullinated Peptide (CCP) Return to Clinic - Established Patient Rheumatoid Factor, Quantitative Sedimentation Rate ?? 4.??M77.9 Tendonitis Low impact exercise. ??Yoga. Ordered: .78096 Office Visit Level 4 Est CBC with Differential Comprehensive Metabolic Profile Creatine Kinase Cyclic Citrullinated Peptide (CCP) Return to Clinic - Established Patient Rheumatoid Factor, Quantitative Sedimentation Rate ?? 5.??R53.83 Fatigue Check lab for signs of new underlying issues. Ordered: .59750 Office Visit Level 4 Est CBC with Differential Comprehensive Metabolic Profile Creatine Kinase Cyclic Citrullinated Peptide (CCP) Return to Clinic - Established Patient Rheumatoid Factor, Quantitative Sedimentation Rate ?? 6.??Therapeutic drug monitoring Reviewed drug risks and benefits. ??Go over alternative medications. Ordered: .21047 Office Visit Level 4 Est CBC with Differential Comprehensive Metabolic Profile Creatine Kinase Cyclic Citrullinated Peptide (CCP) Return to Clinic - Established Patient Rheumatoid Factor, Quantitative Sedimentation Rate ?? 7.??Osteoporosis SHE WILL GET THE DEXA OVER THERE,,,,,,,SHE WAS ON [place] IN THE PAST, SHE WILL CHECK IN [place] ? We are going to address multiple serious [...] ?? RISK TO THE PATIENT IS HIGH Problem List/Past Medical History Ongoing Atrial fibrillation [...] tablet)1 tablet(s) By mouth every 12 hours. leflunomide (leflunomide 10 mg oral tablet)1 tablet(s) By mouth daily for 90 day(s). Refills: 0. magnesium oxide (magnesium oxide 400 mg oral tablet)1 tablet(s) By mouth 2 times a day for 14 day(s). metoprolol (Metoprolol Succinate ER 25 mg oral tablet, extended release)1 tablet(s) By mouth 2 times a day. omeprazole (omeprazole 40 mg oral delayed release [...] Event Name?? Event Result?? Date/Time?? Oxygen Saturation 97 % 12/18/22 10:24:00 ? Voice to Text Technology Disclaimer This note may contain text inserted via Dragon or other voice to text assistive technology and buckle attaching machine operator, variances may occur. Outpatient Summary note * Simran Eason RN: PERFORM Event Display: Ambulatory Patient Summary Authored Date: [id number] ROSIE MELI K :1945 Visit Date:12/18/2022 [facility] Visit Instructions Your Diagnosis Rheumatoid arthritis involving multiple sites with positive rheumatoid factor Inflammatory polyarthritis M79.1 Myalgia M77.9 Tendonitis R53.83 Fatigue Therapeutic drug monitoring Osteoporosis Your Care Team Attending Physician - Matthew Diaz MD Primary Care Physician - Jason Torres M.D. Procedure History ???Total knee replacement (10/10/2019) Discharge Vitals Vital Signs Height: 175.3 cm Height Inches Conversion: 69 Weight: 66.5 kg Weight in Pounds (kg conversion): 146.3 Body Surface Area: 1.7995 m2 Body Mass Index: 21.64 kg/m2 Temperature Temporal Artery: 36.4 DegC Systolic Blood Pressure: 130 mm Hg Diastolic Blood Pressure: 80 mm Hg Peripheral Pulse Rate: 77 bpm Oxygen Saturation: 97 % Primary Pain Location: Generalized HRA Pain Present: Yes What to do next Scheduled Follow-Up Appointments 2023 11:00 AM CDT ?? With: Matthew Diaz MD Where: [facility] [address] [phone] You Need to Complete the Following CBC with Differential, 12/18/22, Blood, ROUTINE, Routine, Order for Future Visit, Nurse Collect, Print Label, Rheumatoid arthritis involving multiple sites with positive rheumatoid factor Inflammatory polyarthritis M79.1 Myalgia M77.9 Tendonitis R53.83 Fatigue The... Comprehensive Metabolic Profile, 12/18/22, Blood, ROUTINE, Routine, Order for Future Visit, Nurse Collect, Print Label, Rheumatoid arthritis involving multiple sites with positive rheumatoid factor Inflammatory polyarthritis M79.1 Myalgia M77.9 Tendonitis R53.83 Fatigue The... Creatine Kinase, 12/18/22, Blood, ROUTINE, Routine, Order for Future Visit, Nurse Collect, Print Label, Rheumatoid arthritis involving multiple sites with positive rheumatoid factor Inflammatory polyarthritis M79.1 Myalgia M77.9 Tendonitis R53.83 Fatigue The... Cyclic Citrullinated Peptide (CCP), 12/18/22, Blood, ROUTINE, Routine, Order for Future Visit, Nurse Collect, Print Label, Rheumatoid arthritis involving multiple sites with positive rheumatoid factor Inflammatory polyarthritis M79.1 Myalgia M77.9 Tendonitis R53.83 Fatigue The... Rheumatoid Factor, Quantitative, 12/18/22, Blood, ROUTINE, Routine, Order for Future Visit, Nurse Collect, Print Label, Rheumatoid arthritis involving multiple sites with positive rheumatoid factor Inflammatory polyarthritis M79.1 Myalgia M77.9 Tendonitis R53.83 Fatigue The... Sedimentation Rate, 12/18/22, Blood, ROUTINE, Routine, Order for Future Visit, Nurse Collect, PrintLabel, Rheumatoid arthritis involving multiple sites with positive rheumatoid factor Inflammatorypolyarthritis M79.1 Myalgia M77.9 Tendonitis R53.83 Fatigue The... Referral Information Referral Information ? No Results [...] physician if questions or concerns ?? Unchanged leflunomide (leflunomide 10 mg oral tablet) 1 tablet(s) By mouth Daily Duration: 90 day(s) Contact prescribing physician if questions or [...] other voice to text assistive technology and buckle attaching machine operator, variances may occur. Patient Care team information Care Team Personnel Name: Matthew Diaz MD Position: Physician - Internal Medicine Member Role: Specialist Physician Address: Address: [address] [place] [address] Name: Jason Torres M.D. Position: [facility] FAX ONLY - MD NOT ON STAFF Member Role: Primary Care Physician Address: Address: [address] [place] [address] [place] Name: Matthew Diaz MD Position: Physician - Internal Medicine Med Service: System Trainer Porcelain Turner Role: Attending Physician Address: Address: [address] [place] [address] Care Team Related Persons Name: ROSIE YOLANDA Address: [address] [phone]
--- OUTSIDE RECORDS SUMMARY | 2024-04-12 04:08 | XMS_ITS | Clinical Summary ---
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 Gender Identity Not on file Sexual Orientation Not on file Obstetrics History Last Filed Vital Signs Vital Sign Reading [...] 12/31/2023 9:16 AM CDT Plan of Treatment Health Maintenance Due Date Last Done Comments Depression Screening 1945 Fall Risk Assessment 1945 Hepatitis C Screening 1945 Osteoporosis Screening-Bone Density Scan 1945 DTaP/Tdap/Td Vaccine (1 - Tdap) 08/19/1955 Hepatitis B Screening 1962 Zoster Vaccine (1 of 2) 1994 Well Visit 65+ 2009 Pneumococcal vaccine 65+ (2 of 2 - PPSV23 or PCV20) 12/26/2018 12/26/2017 Influenza Vaccine (#1) 2023 2, 02/18/2021, 02/09/2020, Additional history exists Insurance MEDICARE [facility] MEDICARE [facility] Care Teams Tooth Cutter Clutch Relationship Specialty Start Date End Date Jason Isaacs MD PCP - General Internal Medicine 07/13/18
--- OUTSIDE RECORDS SUMMARY | 2024-04-12 04:09 | XMS_ITS | Encounter Summary ---
Author Organization [facility] Address [address] [place] [address] Care Team Providers Care Drug Abuse Resistance Education Officer Name Role Phone Jason Isaacs MD Primary Care Provider [phone] Reason for Visit * Reason Comments Follow-up 6mo PAF Hypertension Encounter Details Date Type Department Care Team (Latest Contact Info) Description 01/12/2020 10:15 AM CDT Office Visit [facility] Cardiology [address] [place] [address] Edilberto Oscar MD [facility] [place] [id number] Chronic anticoagulation (Primary Dx); Rheumatoid arthritis, involving unspecified site, unspecified rheumatoid factor presence (CMS/HCC); Essential hypertension; PAF (paroxysmal atrial fibrillation) (CMS/HCC); Chronic renal impairment, unspecified CKD stage Social History Tobacco Use Types Packs/Day Years Used Date Smoking Tobacco: Former Cigarettes Q uit: 07/13/1998 Smokeless Tobacco: Never Alcohol Use Standard Drinks/Week Comments Yes 2 (1 standard drink = 0.6 oz pur e alcohol) 2 beers a day Comments Unknown Sex and Gender Information Value Date Recorded Sex Assigned at Not on file 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 Gender Identity Not on file Sexual Orientation Not on file documented as of this encounter Last Filed Vital Signs Vital Sign Reading Time Taken Comments Blood Pressure 120/72 01/12/2020 10:27 AM CDT Pulse 71 01/12/2020 10:27 AM CDT Temperature - - Respiratory Rate - - Oxygen Saturation 98% 01/12/2020 10:27 AM CDT Inhaled Oxygen Concentration - - Weight 63 kg (139 lb) 01/12/2020 10:27 AM CDT Height 175.3 cm (5' 9 ) 01/12/2020 10:27 AM CDT Body Mass Index 20.53 01/12/2020 10:27 AM CDT documented in this encounter Progress Notes * Edilberto Oscar MD - 01/12/2020 10:15 AM CDT [facility] DATE OF VISIT: 01/12/2020 CHIEF COMPLAINT Chief Complaint Patient presents with ??? Follow-up 6mo ??? PAF ??? Hypertension HPI Chasidy Thomas is a 74 y.o. female with atrial fibrillation. I saw her in the hospital in mid June.She had acute onset of dizziness and heart palpitations. She went to the emergency room and start in and was found to be in atrial fibrillation with rapid ventricular response. She was started on a diltiazem drip and eventually converted to sinus rhythm. She was started on Xarelto because she has achads Vasc score of 3 and nearly 4 given her age. She returns today for follow-up. Telephone visit 07/25/2019: She returns without any complaints of chest pain, shortness breath, syncope, presyncope, paroxysmal nocturnal dyspnea, orthopnea, unusual edema or palpitations. No bleeding problems. Blood pressure is better controlled with the addition of carvedilol Office visit with FACTORY MAINTENANCE TECHNICIAN 10/10/2019: She called the office a few weeks ago with complaint of some chestheaviness and ???feeling funny. Her home blood pressure machine had given an irregular heart beat indication. Dr. Oscar advised a 7 day satellite project site monitor and stress testing. Since the week she called the office, she has felt better and has not had any more of the symptoms. She has a right total knee replacement scheduled for next week and has been advised to hold her Xarelto 4 days prior. She has a question about the comment on her stress test regarding ???cannot r/o IMI. Follow-up note 01/12/2020: She denies any chest pain, shortness breath, syncope, presyncope, paroxysmal nocturnal dyspnea, orthopnea, edema or palpitations. MEDICAL HISTORY History reviewed. Was PAF, rheumatoid arthritis, hypertension Social History Tobacco Use ??? Smoking status: Former Smoker Types: Cigarettes Quit date: 07/13/1998 Years since quittin.5 ??? Smokeless tobacco: Never Used Substance Use Topics ??? Alcohol use: Yes Alcohol/week: 2.0 standard drinks Types: 2 Cans of beer per week Comment: 2 beers a day ??? Drug use: No No family history on file. MEDICATIONS Home Medications ALPRAZOLAM (XANAX) 0.5 MG TABLET ASCORBIC ACID (ASCORBIC ACID WITH RUPESH HIPS) 500 MG TABLET,CHEWABLE ATORVASTATIN (LIPITOR) 20 MG TABLET CALCIUM CITRATE-VITAMIN D3 200 MG CALCIUM -250 UNIT TABLET 1 tablet. CARVEDILOL (COREG) 3.125 MG TABLET Take 3.125 mg by mouth 2 (two) times a day with meals HYDROCHLOROTHIAZIDE (HYDRODIURIL) 25 MG TABLET Take 25 mg by mouth daily LEFLUNOMIDE (ARAVA) 10 MG TABLET LYSINE 500 MG TABLET 500 mg. MAGNESIUM OXIDE (MAG-OX) 400 MG (241.3 MG ELEMENTAL MAGNESIUM) TABLET Take 1 tablet by mouth 2 (two) times a day OMEPRAZOLE (PRILOSEC) 40 MG CAPSULE Take 40 mg by mouth daily. POTASSIUM 99 MG TABLET Take by mouth. PREDNISONE (DELTASONE) 5 MG TABLET RIVAROXABAN (XARELTO) 15 MG TABLET Take 1 tablet (15 mg total) by mouth daily SPIRONOLACTONE (ALDACTONE) 25 MG TABLET Take 50 mg by mouth daily VITAMIN B COMPLEX CAPSULE Take 1 capsule by mouth daily ALLERGIES Allergies Allergen Reactions ??? Sulfasalazine Nausea only REVIEW OF SYSTEMS Review of Systems Constitution: Negative for weight gain and weight loss. HENT: Negative for hearing loss. Eyes: Negative for blurred vision and visual disturbance. Cardiovascular: Negative for chest pain, claudication, dyspnea on exertion, irregular heartbeat, leg swelling, near-syncope, orthopnea, palpitations, paroxysmal nocturnal dyspnea and syncope. Respiratory: Positive for cough. Negative for hemoptysis, shortness of breath, snoring, sputum production and wheezing. Endocrine: Negative for cold intolerance, heat intolerance and polyuria. Hematologic/Lymphatic: Bruises/bleeds easily. Skin: Negative for color change and rash. Musculoskeletal: Negative for falls, joint pain, joint swelling and myalgias. Gastrointestinal: Positive for heartburn. Negative for abdominal pain, nausea and vomiting. Genitourinary: Negative for dysuria. Neurological: Negative for dizziness, focal weakness, headaches, light- headedness, numbness and weakness. Psychiatric/Behavioral: Negative for depression. The patient is not nervous/anxious. Allergic/Immunologic: Negative for environmental allergies. PHYSICAL EXAM Blood pressure 120/72, pulse 71, height 175.3 cm (5' 9 ), weight 63 kg (139 lb), SpO2 98 %. Body mass index is 20.53 kg/m??. Physical Exam Constitutional: She is oriented to person, place, and time. She appears well-nourished. HENT: Head: Normocephalic and atraumatic. Nose: Nose normal. Eyes: Conjunctivae and EOM are normal. No scleral icterus. Neck: Neck supple. Cardiovascular: Normal rate, regular rhythm, normal heart sounds and intact distal pulses. Exam reveals no gallop and no friction rub. No murmur heard. Pulmonary/Chest: Effort normal and breath sounds normal. No respiratory distress. She has no wheezes. She has no rales. She exhibits no tenderness. Abdominal: Soft. Bowel sounds are normal. She exhibits no distension. There is no abdominal tenderness. Musculoskeletal: Normal range of motion. General: No edema. Neurological: She is alert and oriented to person, place, and time. Skin: Skin is warm and dry. Psychiatric: She has a normal mood and affect. LABS AND OTHER DIAGNOSTIC TESTS No results found for: WBC, HGB, HCT, MCV, PLT Chemistry No results found for: SODIUM, POTASSIUM, CHLORIDE, CO2, BUNSER, CREATININE, GLUCOSE No results found for: CALCIUM, ALKPHOS, AST, ALT, BILITOT No results found for: CHOL No results found for: HDL No results found for: LDL] No results found for: LDLCALC No results found for: TRIG No results found for: CHOLHDL EKG Echo June 2017: EF 60-65% with mild left atrial enlargement. No significant valve problems. Myocardial Perfusion study 07/24/2017: EF 75% without infarction or ischemia. ASSESSMENT Diagnoses and all orders for this visit: PAF (paroxysmal atrial fibrillation) (CMS/HCC) (Primary) Remains in sinus rhythm and on anticoagulation Essential hypertension At goal Rheumatoid arthritis, involving unspecified site, unspecified rheumatoid factor presence (CMS/HCC) Stable Chronic anticoagulation No bleeding problems Chronic renal insufficiency, unspecified CKD stage: Followed by Dr. Gao PLAN/RECOMMENDATIONS She is stable. She should continue her current drug regimen without change. I will see her back in 6 months or sooner as clinically indicated Edilberto Oscar MD, [facility] documented in this encounter Miscellaneous Notes * Addendum Note - Ofelia Arguelles MA - 01/12/2020 10:15 AM CDTAddended by: OFELIA ARGUELLES on: 01/12/2020 01:32 PM Modules accepted: Orders documented in this encounter Plan of Treatment Not on file documented as of this encounter Procedures Procedure Name Priority Date/Time Associated Diagnosis Comments POCT LIPID PANEL Routine 01/12/2020 1:31 PM CDT Essential hypertension documented in this encounter Results * POCT lipid panel (01/12/2020 1:31 PM CDT) Cholesterol, POC 187 mg/dL HDL, POC 100 mg/dL Triglycerides, POC 131 mg/dL LDL Cholesterol POC 61 mg/dL Capillary blood 01/12/2020 1 :31 PM CDT Edilberto Oscar MD POINT OF CARE TEST ORDERA BLES Final Result documented in this encounter Visit Diagnoses Diagnosis Chronic anticoagulation- Primary Encounter for long-term (current) use of anticoagulants Rheumatoid arthritis, involving unspecified site, unspecified rheumatoid factor presence Essential hypertension Unspecified essential hypertension PAF (paroxysmal atrial fibrillation) (CMS/HCC) (HCC) Atrial fibrillation Chronic renal impairment, unspecified CKD stage documented in this encounter Care Teams Drug Abuse Resistance Education Officer Relationship Specialty Start Date End Date Jason Isaacs MD PCP - General Internal Medicine 07/13/18 documented as of this encounter
--- OUTSIDE RECORDS SUMMARY | 2024-04-12 04:09 | XMS_ITS | Encounter Summary ---
Author Organization [facility] Address [address] [facility] [address] [place] [id number] Care Team Providers Care Apartment Coordinator Name Role Phone Jason Isaacs MD Primary Care Provider [phone] Reason for Visit * Reason Comments Hospital Follow Up Atrial Fibrillation Encounter Details Date Type Department Care Team ([facility] Contact Info) Description 11/15/2020 9:30 AM CDT Office Visit [facility] Cardiology [address] [place] [address] Cathie Brody NP [address] [facility] [address] [place] [address] Atrial fibrillation, unspecified type (HCC); Edema, lower extremity; Essential hypertension; Chronic anticoagulation; Hospital discharge follow-up Social History Tobacco Use Types Packs/Day Years Used Date Smoking Tobacco: Former Cigarettes Q uit: 07/13/1998 Smokeless Tobacco: Never Alcohol Use Standard Drinks/Week Comments Yes 2 (1 standard drink = 0.6 oz pur e alcohol) 2 beers a day Comments Unknown Sex and Gender Information Value Date Recorded Sex Assigned at Not on file Legal 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 Gender Identity Not on file Sexual Orientation Not on file documented as of this encounter Last Filed Vital Signs Vital Sign Reading Time Taken Comments Blood Pressure 126/74 11/15/2020 9:22 AM CDT Pulse 68 11/15/2020 9:22 AM CDT Temperature - - Respiratory Rate - - Oxygen Saturation 96% 11/15/2020 9:22 AM CDT Inhaled Oxygen Concentration - - Weight 69.9 kg (154 lb) 11/15/2020 9:22 AM CDT Height 175.3 cm (5' 9 ) 11/15/2020 9:22 AM CDT Body Mass Index 22.74 11/15/2020 9:22 AM CDT documented in this encounter Patient Instructions * Patient Instructions* Cathie Brody NP - 11/15/2020 9:30 AM CDT Temporarily stop the hydrochlorothiazide again. Take new medication to relieve swelling in legs - it's called furosemide. You will take 20 mg once a day in the morning for 4-5 days until you see the swelling in your legs improve. If swelling is better in 4-5 days, stop furosemide, and resume hydrochlorothiazide. If swelling is NOT better after 6-7 days on the furosemide, call the office to let meknow. Keep checking blood pressure daily and if top number remains ABOVE 130 consistently, call the office so we can instruct you to restart the losartan. documented in this encounter Ordered Prescriptions Prescription Sig Dispense Quantity Refills Last Filled Start Date End Date metoprolol XL (TOPROL-XL) 25 mg extended release tabletIndications: Atrial fibrillation, unspecified type (HCC) Take 1 tablet (25 mg total) by mouth 2 (two) times a day 11/15/2020 1 hydroCHLOROthiazid e (HYDRODIURIL) 25 mg tabletIndications: Edema, lower extremity Take 1 tablet (25 mg total) by mouth daily 2 11/23/2020 1 furosemide (LASIX) 20 mg tabletIndications: Edema, lower extremity Take one tablet daily every morning for up to 7 days. Call the office before taking longer than 7 days. 10 tablet 11/15/2020 1 documented in this encounter Progress Notes * Cathie Brody NP - 11/15/2020 9:30 AM CDT Images from the original note were not included. [facility] Cardiology [address] [place] [address] Date of Visit: 11/15/2020 Patient ID: Chasidy Thomas 1945 Chief Complaint: Chasidy Thomas is a 75 y.o. female is an established patient of Dr. Oscar returning the office for hospital follow-up after she was treated for AFib with RVR. History of Present Illness: Chasidy Thomas is a 75 y.o. femalewith atrial fibrillation. I saw her in the hospital in mid June. She had acute onset of dizziness and heart palpitations. She went to the emergency room and start inand was found to be in atrial fibrillation with rapid ventricular response. She was started on a diltiazem drip and eventually converted to sinus rhythm. She was started on Xarelto because she has a chads Vasc score of 3 and nearly 4 given her age. She returns today for follow-up. Telephone visit 07/25/2019: She returns without any complaints of chest pain, shortness breath, syncope, presyncope, paroxysmal nocturnal dyspnea, orthopnea, unusual edema or palpitations. No bleeding problems. Blood pressure is better controlled with the addition of carvedilol Office visit with MARY 10/10/2019: She called the office a few weeks ago with complaint of some chestheaviness and ???feeling funny. Her home blood pressure machine had given an irregular heart beat indication. Dr. Oscar advised a 7 day psych rn and stress testing. Since the week she called the office, she has felt better and has not had any more of the symptoms. She has a right total knee replacement scheduled for next week and has been advised to hold her Xarelto 4 days prior. She has a question about the comment on her stress test regarding ???cannot r/o IMI. Follow-up note 07/17/2020: She denies any chest pain, shortness breath, syncope, presyncope, paroxysmal nocturnal dyspnea, orthopnea, edema or palpitations. She is receiving Procrit shots. Hemoglobinhas been in the 8. Hospital follow-up with MARY Stoll 10/19/2020 - Chasidy Thomas comes to the office today for a hospital follow up visit. On 09/28/2020 she was admitted to [facility]. She presented there with palpitations, chest pain, shortness of breath. She was found to be in atrial fibrillation with rapid ventricular response. She was placed on a diltiazem drip and subsequently converted to sinus rhythm. She was sent home on oral diltiazem. Today, she reports that she is feeling well. She denies any palpitations. She has not had any symptoms since her discharge from the hospital. She remainscompliant with her anticoagulation. At this visit, diltiazem was stopped and she was kept on metoprolol and Xarelto. Hospital follow-up with MARY Brody 11/15/2020: She was readmitted for AFib with RVR. She did not respond to IV diltiazem and she became hypotensive. Therefore she was placed on flecainide (50 mg b.i.d. was chosen due to her CKD), metoprolol succinate was increased to 25 mg b.i.d.. Losartan and spironolactone were held, HCTZ discontinued. About a week or so after discharge, she called the office because feet and legs were swelling and therefore she was advised to restart HCTZ. Recent blood pressures at home have been 131/67, 137/74, 121/72. Today she reports ???feeling real good.?? She has been back on HCTZ for 4 days and she thinks it has helped the swelling ???a little.?? Otherwise she has no complaints or concerns. Twelve lead ECG performed in the office today was reviewed by me personally and shows sinus rhythm,normal axis and normal intervals, QTC 430 MS, rate 71 beats per minute Records that I personally reviewed on the day of this visit include: (the interpretation is outlined in the HPI above) 07/17/[address] Oscar, 10/19/2020 office note from MARY Saldaña I have also reviewed: allergies, current medications, past family history, past medical history, past social history, past surgical history and problem list Review of Systems Constitutional: Negative for diaphoresis, fever, malaise/fatigue, weight gain and weight loss. HENT: Negative for hearing loss. Eyes: Negative for visual disturbance. Cardiovascular: Positive for leg swelling. Negative for chest pain, claudication, dyspnea on exertion, orthopnea, palpitations, paroxysmal nocturnal dyspnea and syncope. Respiratory: Negative for cough, hemoptysis, shortness of breath, snoring and wheezing. Hematologic/Lymphatic: Bruises/bleeds easily. Skin: Negative for poor wound healing and rash. Musculoskeletal: Negative for joint pain and myalgias. Gastrointestinal: Negative for heartburn, nausea and vomiting. Genitourinary: Negative for hematuria. Neurological: Negative for dizziness, headaches and light-headedness. Psychiatric/Behavioral: Negative for depression. The patient is not nervous/anxious. Vital Signs: BP 126/74 (BP Location: Left arm, Patient Position: Sitting) Pulse 68 Ht 175.3 cm (5' 9 ) Wt 69.9 kg (154 lb) SpO2 96% BMI 22.74 kg/m?? Physical Exam Constitutional: General: She is not in acute distress. Appearance: She is well-developed. HENT: Head: Normocephalic and atraumatic. Nose: Comments: Wearing a mask Eyes: General: No scleral icterus. Conjunctiva/sclera: Conjunctivae normal. Pupils: Pupils are equal, round, and reactive to light. Neck: Vascular: No JVD. Trachea: No tracheal deviation. Cardiovascular: Rate and Rhythm: Normal rate and regular rhythm. Heart sounds: Normal heart sounds. No murmur heard. Pulmonary: Effort: Pulmonary effort is normal. No respiratory distress. Breath sounds: Normal breath sounds. Abdominal: General: Bowel sounds are normal. Palpations: Abdomen is soft. Tenderness: There is no abdominal tenderness. Musculoskeletal: Right lower leg: Edema (2+ pitting extends 3 above ankles) present. Left lower leg: Edema (2+ pitting extends 3 above ankles) present. Skin: General: Skin is warm and dry. Neurological: Mental Status: She is alert and oriented to person, place, and time. Psychiatric: Mood and Affect: Mood normal. Behavior: Behavior normal. Allergies Allergen Reactions ??? Oxycodone Dizziness, Nausea only and Hypotension ??? Sulfadiazine Nausea And Vomiting Current Outpatient Medications: ??? ALPRAZolam (XANAX) 0.5 mg tablet, Take 0.5 mg by mouth nightly , Disp: , Rfl: ??? ascorbic acid (ascorbic acid with trish hips) 500 mg tablet,chewable, , Disp: , Rfl: ??? atorvastatin (LIPITOR) 20 mg tablet, Take 20 mg by mouth daily , Disp: , Rfl: ??? calcium citrate-vitamin D3 200 mg calcium -250 unit tablet, 1 tablet., Disp: , Rfl: ??? ferrous sulfate 325 mg (65 mg of elemental iron) tablet, Take 65 mg of elemental iron by mouth 3 (three) times a day with meals, Disp: , Rfl: ??? flecainide (TAMBOCOR) 50 mg tablet, TAKE 1 TABLET BY MOUTH EVERY 12 HOURS FOR 30 DAYS, Disp: , Rfl: ??? [START ON 11/23/2020] hydroCHLOROthiazide (HYDRODIURIL) 25 mg tablet, Take 1 tablet (25 mg total) by mouth daily, Disp: , Rfl: 2 ??? leflunomide (ARAVA) 10 mg tablet, Take 10 mg by mouth daily , Disp: , Rfl: ??? magnesium oxide (MAG-OX) 400 mg (241.3 mg elemental magnesium) tablet, Take 1 tablet by mouth 2(two) times a day, Disp: , Rfl: 99 ??? metoprolol XL (TOPROL-XL) 25 mg extended release tablet, Take 1 tablet (25 mg total) by mouth 2(two) times a day, Disp: , Rfl: ??? omeprazole (PriLOSEC) 40 mg capsule, Take 40 mg by mouth daily., Disp: , Rfl: ??? predniSONE (DELTASONE) 5 mg tablet, 5 mg alt with 10 mg every other day, Disp: , Rfl: ??? Xarelto 15 mg tablet, TAKE 1 TABLET BY MOUTH EVERY DAY, Disp: 90 tablet, Rfl: 3 ??? furosemide (LASIX) 20 mg tablet, Take one tablet daily every morning for up to 7 days. Call theoffice before taking longer than 7 days., Disp: 10 tablet, Rfl: 0 No results found for: POTASSIUM, BUNSER, CREATININE, CHOL, TRIG, LDL, LDLCALC, HDL Assessment: Diagnoses and all orders for this visit: Atrial fibrillation, unspecified type (CMS/HCC) - metoprolol XL (TOPROL-XL) 25 mg extended release tablet; Take 1 tablet (25 mg total) by mouth 2 (two) times a day Edema, lower extremity - furosemide (LASIX) 20 mg tablet; Take one tablet daily every morning for up to 7 days. Call the office before taking longer than 7 days. - hydroCHLOROthiazide (HYDRODIURIL) 25 mg tablet; Take 1 tablet (25 mg total) by mouth daily Essential hypertension Chronic anticoagulation Hospital discharge follow-up Plan/Recommendations: She had 2 recent hospitalizations for AFib with RVR. She is now on flecainide and a higher dose of metoprolol and she is maintaining sinus rhythm. Her QT interval is appropriate. Continue flecainide 50 mg b.i.d. and metoprolol succinate 25 mg b.i.d. Her lower extremity edema is significant enough I am not confident the HCTZ will effectively treated. Therefore I directed her to take furosemide 20 mg daily for 4-5 days until the edema is relieved.Then stop the furosemide and resume hydrochlorothiazide. May take the furosemide up to 7 days, but if edema is still not relieved, call the office before taking anymore. Try to eat some extra potassium rich food by taking the furosemide. Blood pressures were low in the hospital and therefore losartan and spironolactone were held. I advised her to keep checking her blood pressures at home and if her systolic BP is consistently stayingabove 130, call the office and I would direct her to resume her losartan. We would ask her to keep checking it and if needed we could later resume the spironolactone if indicated. She is tolerating anticoagulation with Xarelto. Continue. Keep the previously scheduled follow-up visit with Dr. Oscar in 2 months. Call us sooner with questions or concerns. TATYANA Noonan- Nurse Practitioner with [facility] [place] This note is dictated and transcribed using [employer] Direct Software. Labor Relations Representative variancesmay occur. Despite proofreading, typographical errors may occur. documented in this encounter Miscellaneous Notes * Addendum Note - Mame Escobar MA - 11/15/2020 9:30 AM CDTAddended by: MAME ESCOBAR on: 11/15/2020 11:12 AM Modules accepted: Orders documented in this encounter Plan of Treatment Scheduled Orders Name Type Priority Associated Diagnoses Orde r Schedule ECG 12 lead ECG Routine Atrial fibrillation, unspecified type (HCC) Ordered: 11/15/2020 documented as of this encounter Visit Diagnoses Diagnosis Atrial fibrillation, unspecified type (HCC) Edema, lower extremity Essential hypertension Unspecified essential hypertension Chronic anticoagulation Encounter for long-term (current) use of anticoagulants Hospital discharge follow-up Other follow-up examination documented in this encounter Discontinued Medications Medication Sig Discontinue Reason Start Date End Da te hydroCHLOROthiazide (HYDRODIURIL) 25 mg tablet Take 25 mg by mouth daily Discontinued by another clinician 10/26/2018 11/15/2020 dilTIAZem CD 120 mg 24 hr capsule Take 120 mg by mouth daily Alternate therapy 09/29/2020 11/15/2020 losartan (COZAAR) 25 mg tablet Take 25 mg by mouth daily Side effects 12/09/2019 11/15/2020 spironolactone (ALDACTONE) 25 mg tablet Take 25 mg by mouth daily Side effects 12/10/2018 11/15/2020 metoprolol XL (TOPROL-XL) 25 mg extended release tabletIndications:Fatig ue, unspecified type TAKE 1/2 TABLET BY MOUTH EVERY DAY 08/09/2020 11/15/2020 documented as of this encounter Historical Medications * This list may reflect changes made after this encounter. flecainide (TAMBOCOR) 50 mg tablet TAKE 1 TABLET BY MOUTH EVERY 12 HOURS FOR 30 DAYS 11/02/2020 01/24/2021 added in this encounter Care Teams Apartment Coordinator Relationship Specialty Start Date End Date Jason Isaacs MD PCP - General Internal Medicine 07/13/18 documented as of this encounter
--- OUTSIDE RECORDS SUMMARY | 2024-04-12 04:09 | XMS_ITS | Encounter Summary ---
Author Organization [facility] Address [address] [facility] [address] [place] [address] Care Team Providers Care Donor Recruiter Name Role Phone Jason Isaacs MD Primary Care Provider [phone] Reason for Visit * Reason Comments Follow-up 6 month follow up. 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 Gender Identity Not on file Sexual Orientation Not on file documented as of this encounter Last Filed Vital Signs Vital Sign Reading Time Taken Comments Blood Pressure 118/78 12/17/2022 8:08 AM CDT Pulse 72 12/17/2022 8:08 AM CDT Temperature - - Respiratory Rate - - Oxygen Saturation 95% 12/17/2022 8:08 AM CDT Inhaled Oxygen Concentration - - Weight 67.1 kg (148 lb) 12/17/2022 8:08 AM CDT Height 175.3 cm (5' 9 ) 12/17/2022 8:08 AM CDT Body Mass Index 21.86 12/17/2022 8:08 AM CDT documented in this encounter Progress Notes * Edilberto Oscar MD - 12/17/2022 8:30 AM CDT Images from the original note were not included. [facility] DATE OF VISIT: 12/17/2022 CHIEF COMPLAINT Chief Complaint Patient presents with Follow-up 6 month follow up. SHASHA Thomas is a 77 y.o. female with atrial fibrillation. I saw [...] the addition of carvedilol Office visit with HR SYSTEMS ANALYST 10/10/2019: She called the office a few weeks ago with complaint of some chestheaviness and ???feeling funny. Her home blood pressure machine had given an irregular heart beat indication. Dr. Oscar advised a 7 day library monitor and stress testing. Since the week she called the office, she has felt better and has not had any more of the symptoms. She has a right total knee replacement scheduled for next week and has been advised to hold her Xarelto 4 days prior. She has a question about the comment on her stress test regarding ???cannot r/o IMI. Follow-up note 01/24/2021: She denies any chest pain, shortness breath, syncope, presyncope, paroxysmal nocturnal dyspnea, orthopnea, or palpitations. She has some lower extremity edema at times but is doing okay and the swelling is controlled by compression stockings to this point. Follow-up note 02/05/2022: She denies any chest pain, shortness breath, syncope, presyncope, paroxysmal nocturnal dyspnea, orthopnea, edema or palpitations. No bleeding problems Date of service 12/17/2022: She feels well. She has had some issues with diverticulitis was then lead to C diff. Her GI symptoms have now improved. She denies any chest pain, shortness breath, syncope, presyncope, paroxysmal nocturnal dyspnea orthopnea, edema, palpitations, bleeding MEDICAL HISTORY History reviewed. Was PAF, rheumatoid arthritis, hypertension Social History Tobacco Use Smoking status: Former Smoker Types: Cigarettes Quit date: 07/13/1998 Years since quittin.0 Smokeless tobacco: Never Used Substance Use Topics Alcohol use: Yes Alcohol/week: 2.0 standard drinks Types: 2 Cans of beer per week Comment: 2 beers a day Drug use: No History reviewed. No pertinent family history. MEDICATIONS Medication List Accurate as of December 17, 2022 8:40 AM. If you have any questions, ask your nurse or doctor. CONTINUE taking these medications ALPRAZolam 0.5 mg tablet Commonly known as: XANAX ascorbic acid 500 mg tablet,chewable Commonly known as: VITAMIN C atorvastatin 20 mg tablet Commonly known as: LIPITOR calcium citrate-vitamin D3 200 mg-6.25 mcg (250 unit) tablet ciprofloxacin 250 mg tablet Commonly known as: CIPRO ferrous sulfate 325 mg (65 mg of elemental iron) tablet flecainide 50 mg tablet Commonly known as: TAMBOCOR TAKE 1 TABLET BY MOUTH TWICE A DAY furosemide 20 mg tablet Commonly known as: LASIX Take one tablet in the am for the next 14 days. Call office if your swelling hasn't resolved. leflunomide 10 mg tablet Commonly known as: ARAVA magnesium oxide 400 mg (241.3 mg elemental magnesium) tablet Commonly known as: MAG-OX metoprolol XL 25 mg extended release tablet Commonly known as: TOPROL-XL TAKE 1 TABLET BY MOUTH TWICE A DAY metroNIDAZOLE 500 mg tablet Commonly known as: FLAGYL omeprazole 40 mg capsule Commonly known as: PriLOSEC predniSONE 5 mg tablet Commonly known as: DELTASONE spironolactone 25 mg tablet Commonly known as: ALDACTONE Xarelto 15 mg tablet Generic drug: rivaroxaban TAKE 1 TABLET BY MOUTH EVERY DAY ALLERGIES Allergies Allergen Reactions Oxycodone Dizziness, Nausea only, Hypotension and Other (See comments) Sulfadiazine Nausea And Vomiting REVIEW OF SYSTEMS Review of Systems Constitutional: Positive for weight loss. Negative for malaise/fatigue and weight gain. HENT: Negative for hearing loss. Eyes: Negative for blurred vision and visual disturbance. Cardiovascular: Negative for chest pain, claudication, dyspnea on exertion, irregular heartbeat, leg swelling, near-syncope, orthopnea, palpitations, paroxysmal nocturnal dyspnea and syncope. Respiratory: Negative for cough, hemoptysis, shortness of breath, snoring, sputum production and wheezing. Endocrine: Negative for cold intolerance, heat intolerance and polyuria. Hematologic/Lymphatic: Bruises/bleeds easily. Skin: Negative for color change and rash. Musculoskeletal: Positive for joint pain. Negative for falls, joint swelling and myalgias. Gastrointestinal: Positive for heartburn. Negative for abdominal pain, nausea and vomiting. Genitourinary: Negative for dysuria. Neurological: Negative for dizziness, focal weakness, headaches, light- headedness, numbness and weakness. Psychiatric/Behavioral: Negative for depression. The patient is not nervous/anxious. Allergic/Immunologic: Negative for environmental allergies. PHYSICAL EXAM Blood pressure 118/78, pulse 72, height 175.3 cm (5' 9 ), weight 67.1 kg (148 lb), SpO2 95 %. Body mass index is 21.86 kg/m??. Physical Exam Vitals reviewed. HENT: Head: Normocephalic and atraumatic. Nose: Nose normal. Eyes: General: No scleral icterus. Conjunctiva/sclera: Conjunctivae normal. Cardiovascular: Rate and Rhythm: Normal rate and regular rhythm. Pulses: Intact distal pulses. Heart sounds: Normal heart sounds. No murmur heard. No friction rub. No gallop. Pulmonary: Effort: Pulmonary effort is normal. No respiratory distress. Breath sounds: Normal breath sounds. No wheezing or rales. Chest: Chest wall: No tenderness. Abdominal: General: Bowel sounds are normal. There is no distension. Palpations: Abdomen is soft. Tenderness: There is no abdominal tenderness. Musculoskeletal: General: Normal range of motion. Cervical back: Neck supple. Skin: General: Skin is warm and dry. Neurological: Mental Status: She is alert and oriented to person, place, and time. Psychiatric: Mood and Affect: Mood normal. LABS AND OTHER DIAGNOSTIC TESTS No results found for: WBC , HGB , HCT , MCV , PLT Chemistry No results found for: SODIUM , POTASSIUM , CHLORIDE , CO2 , BUNSER , CREATININE , GLUCOSE No results found for: CALCIUM , ALKPHOS , AST , ALT , BILITOT No results found for: CHOL No results found for: HDL No results found for: LDL ] No results found for: LDLCALC No results found for: TRIG No results found for: CHOLHDL EKG 02/05/2022: Normal sinus rhythm. Normal EKG Echo June 2017: EF 60-65% with [...] unspecified CKD stage: Followed by Dr. Gao Encounter for monitoring flecainide therapy PLAN/RECOMMENDATIONS She will be due for an EKG at next visit because of chronic flecainide use She is stable. She should continue her current drug regimen without change including flecainide, metoprolol and Xarelto because of atrial fibrillation. I will see her back in 6 months or sooner as clinically indicated. Edilberto Oscar MD, [facility] documented in this encounter Plan of Treatment Not on file documented as of this encounter Visit Diagnoses Diagnosis Chronic anticoagulation- Primary Encounter for long-term (current) use of anticoagulants PAF (paroxysmal atrial fibrillation) (CMS/HCC) (HCC) Atrial fibrillation Essential hypertension Unspecified essential hypertension Encounter for monitoring flecainide therapy documented in this encounter Discontinued Medications Medication Sig Discontinue Reason Start Date End Da te ciprofloxacin (CIPRO) 250 mg tablet Take 1 tablet (250 mg total) by mouth every 12 (twelve) hours Therapy completed 01/31/2022 12/17/2022 metroNIDAZOLE (FLAGYL) 500 mg tablet Take 1 tablet (500 mg total) by mouth 3 (three) times a day Therapy completed 01/31/2022 12/17/2022 documented as of this encounter Care Teams Donor Recruiter Relationship Specialty Start Date End Date Jason Isaacs MD PCP - General Internal Medicine 07/13/18 documented as of this encounter
--- OUTSIDE RECORDS SUMMARY | 2024-04-12 04:09 | XMS_ITS | Encounter Summary ---
Author Organization [facility] Address [address] [place] [address] Care Team Providers Care Gyn Name Role Phone Jason Isaacs MD Primary Care Provider [phone] Encounter Details Date Type Department Care Team (Late st Contact Info) Description 12/06/2020 Telephone [facility] Cardiology [address] [place] [address] Edilberto Oscar MD [address] [id number] Social History Tobacco Use Types Packs/Day Years Used Date Smoking Tobacco: Former Cigarettes Q uit: 07/13/1998 Smokeless Tobacco: Never Alcohol Use Standard Drinks/Week Comments Yes 2 (1 standard drink = 0.6 oz pur e alcohol) 2 beers a day Comments Unknown Sex and Gender Information Value Date Recorded Sex Assigned at Not on file 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 She said that she will continue another 7 days of the furosemide and appreciated our call back. She will call us next week with updates and bpreadings. I spoke w/ her about sodium restriction and patient verbalized understanding. * Telephone Encounter - Brittani Saldaña NP - 12/07/2020 12:45 PM CDT She can continue the furosemide for another 7 days and call office with update next week. If her BPis not soft, her spironolactone can be resumed to help with the edema. Please discuss sodium restriction (2g/day) with her as well. Thank you. * Telephone Encounter - Isaac Bautista RN - 12/06/2020 2:24 PM CDT Patient is calling complaining of significant amount of swelling in her legs still. She said that she was prescribed furosemide 20 mg daily by Cathie Brody. She was advised to call back after 7 days which she continued for another 7 days. She said the furosemide has helped maybe a little but notmuch. She is not on HCTZ or spirolactone, just furosemide 20 mg daily. She is not having any issueswith urinating and has not had any worsening swelling. She just is wondering if she should stop at 14 days as instructed with her legs being this swollen. She wanted to call before the weekend but states it is not an urgent matter and she can wait for Brittani Lane to answer. Cathie Brody last note copied and pasted below: Her lower extremity edema is significant enough [...] could later resume the spironolactone if indicated. Please advise! * Telephone Encounter - Smita Rodrigues - 12/06/2020 2:07 PM CDT Pt called requesting a call from a nurse in regard to her medication Furosemide,pt states she was instructed to take this medication for 14 days,states Friday 12/08 will make 14days,pt states she still has a significant amount of swelling in her legs and feet and wants to know should she continue t he med until 12/08.please advise.Thank you Contact:[phone] documented in this encounter Plan of Treatment Not on file documented as of this encounter Visit Diagnoses Not on filedocumented in this encounter Care Teams Gyn Relationship Specialty Start Date End Date Jason Isaacs MD PCP - General Internal Medicine 07/13/18 documented as of this encounter
--- OUTSIDE RECORDS SUMMARY | 2024-04-12 04:09 | XMS_ITS | Encounter Summary ---
Author Organization [facility] Address [address] [place] [id number] Care Team Providers Care Liquor Merchant Name Role Phone Jason Isaacs MD Primary Care Provider [phone] Reason for Visit * Reason Comments Hospital Follow Up ED f/u Encounter Details Date Type Department Care Team (Latest Contact Info) Description 10/19/2020 1:00 PM CDT Office Visit [facility] Cardiology [address] [place] [address] Brittani Saldaña NP [address] [place] [address] PAF (paroxysmal atrial fibrillation) (CMS/HCC) (Primary Dx); Essential hypertension; Chronic anticoagulation Social History Tobacco Use Types Packs/Day Years Used Date Smoking Tobacco: Former Cigarettes Q uit: 07/13/1998 Smokeless Tobacco: Never Alcohol Use Standard Drinks/Week Comments Yes 2 (1 standard drink = 0.6 oz pur e alcohol) 2 beers a day Comments Unknown Sex and Gender Information Value Date Recorded Sex Assigned at Not on file 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 Gender Identity Not on file Sexual Orientation Not on file documented as of this encounter Last Filed Vital Signs Vital Sign Reading Time Taken Comments Blood Pressure 108/56 10/19/2020 12:59 PM CDT Pulse 76 10/19/2020 12:59 PM CDT Temperature - - Respiratory Rate - - Oxygen Saturation 98% 10/19/2020 12:59 PM CDT Inhaled Oxygen Concentration - - Weight 68 kg (150 lb) 10/19/2020 12:59 PM CDT Height 175.3 cm (5' 9 ) 10/19/2020 12:59 PM CDT Body Mass Index 22.15 10/19/2020 12:59 PM CDT documented in this encounter Progress Notes * Brittani Saldaña, MARY - 10/19/2020 1:00 PM CDT [facility] Cardiology [address] [place] [address] Date of Visit: 10/19/2020 Patient ID: Chasidy Thomas 1945 Chief Complaint: Chasidy Thomas is a 75 y.o. female who comes to the office for a hospital follow up for Afib with RVR History of Present Illness: Chasidy Thomas is a 74 y.o. female with atrial fibrillation. She was admitted to [facility] in June of [address] Oscar saw her in consultation. She had acute onset of dizziness and heart palpitations. She went to the emergency room and start in and was found to be in atrial fibrillation with rapid ventricular response. She was started on a diltiazem drip and eventually converted to sinus rhythm. She was started on Xarelto because she has a chads Vasc score of 3 and nearly 4 given herage. She returns today for follow-up. ?? Telephone visit 07/25/2019: She returns without any complaints of chest pain, shortness breath, syncope, presyncope, paroxysmal nocturnal dyspnea, orthopnea, unusual edema or palpitations. No bleeding problems. Blood pressure is better controlled with the addition of carvedilol ?? Office visit with COMMUNICATIONS PROFESSOR 10/10/2019: She called the office a few weeks ago with complaint of some chestheaviness and ???feeling funny. Her home blood pressure machine had given an irregular heart beat indication. Dr. Oscar advised a 7 day bank analyst and stress testing. Since the week she called the office, she has felt better and has not had any more of the symptoms. She has a right total knee replacement scheduled for next week and has been advised to hold her Xarelto 4 days prior. She has a question about the comment on her stress test regarding ???cannot r/o IMI. ?? Follow-up note 07/17/2020: She denies any chest pain, shortness breath, syncope, presyncope, paroxysmal nocturnal dyspnea, orthopnea, edema or palpitations. She is receiving Procrit shots. [place] been in the 8. 10/19/2020 Hospital follow-up with MARY Stoll Martha comes to the office today for a hospital follow up visit. [facility] She [facility] there with palpitations, chest pain, [...] the hospital. She remainscompliant with her anticoagulation. Records that I personally reviewed on the day of this visit include: (the interpretation is outlined in the HPI above) Records from the above mentioned hospital admission. Dr. Oscar office note from 07/17/2020 I have also reviewed: allergies, current medications, past family history, past medical history, past social history, past surgical history and problem list Review of Systems Constitutional: Negative for fever, malaise/fatigue, night sweats, weight gain and weight loss. HENT: Negative for hearing loss. Eyes: Negative for blurred vision and visual disturbance. Cardiovascular: Negative for chest pain, dyspnea on exertion, irregular heartbeat, leg swelling, near-syncope, palpitations and syncope. Respiratory: Negative for shortness of breath, sleep disturbances due to breathing, snoring and wheezing. Hematologic/Lymphatic: Negative for bleeding problem. Musculoskeletal: Negative for muscle cramps and muscle weakness. Gastrointestinal: Negative for abdominal pain, change in bowel habit, diarrhea, nausea and vomiting. Genitourinary: Negative for hematuria. Neurological: Negative for dizziness and headaches. Vital Signs: BP 108/56 (BP Location: Left arm, Patient Position: Sitting) Pulse 76 Ht 175.3 cm (5' 9 ) Wt 68 kg (150 lb) SpO2 98% BMI 22.15 kg/m?? Body mass index is 22.15 kg/m??. Physical Exam Vitals reviewed. Constitutional: General: She is not in acute distress. HENT: Head: Normocephalic and atraumatic. Eyes: Conjunctiva/sclera: Conjunctivae normal. Cardiovascular: Rate and Rhythm: Normal rate and regular rhythm. Heart sounds: Normal heart sounds. Pulmonary: Effort: Pulmonary effort is normal. No respiratory distress. Breath sounds: Normal breath sounds. Abdominal: General: Bowel sounds are normal. Palpations: Abdomen is soft. Musculoskeletal: General: Normal range of motion. Cervical back: Normal range of motion and neck supple. Right lower leg: Edema (trace) present. Left lower leg: Edema (trace) present. Skin: General: Skin is warm and dry. Neurological: Mental Status: She is alert and oriented to person, place, and time. Allergies Allergen Reactions ??? Oxycodone Dizziness, Nausea [...] tablet, 1 tablet., Disp: , Rfl: ??? dilTIAZem CD 120 mg 24 hr capsule, Take 120 mg by mouth daily , Disp: , Rfl: ??? ferrous sulfate 325 mg (65 mg of elemental iron) tablet, Take 65 mg of elemental iron by mouth 3 (three) times a day with meals, Disp: , Rfl: ??? hydroCHLOROthiazide (HYDRODIURIL) 25 mg tablet, Take 25 mg by mouth daily, Disp: , Rfl: 2 ??? leflunomide (ARAVA) 10 mg tablet, Take 10 mg by mouth daily , Disp: , Rfl: ??? losartan (COZAAR) 25 mg tablet, Take 25 mg by mouth daily , Disp: , Rfl: ??? magnesium oxide (MAG-OX) 400 mg (241.3 mg elemental magnesium) tablet, Take 1 tablet by mouth 2(two) times a day, Disp: , Rfl: 99 ??? metoprolol XL (TOPROL-XL) 25 mg extended release tablet, TAKE 1/2 TABLET BY MOUTH EVERY DAY, Disp: 45 tablet, Rfl: 1 ??? omeprazole (PriLOSEC) 40 mg capsule, Take 40 mg by mouth daily., Disp: , Rfl: ??? predniSONE (DELTASONE) 5 mg tablet, 5 mg alt with 10 mg every other day, Disp: , Rfl: ??? spironolactone (ALDACTONE) 25 mg tablet, Take 25 mg by mouth daily , Disp: , Rfl: 0 ??? Xarelto 15 mg tablet, TAKE 1 TABLET BY MOUTH EVERY DAY, Disp: 90 tablet, Rfl: 3 No results found for: POTASSIUM, BUNSER, CREATININE, CHOL, TRIG, LDL, LDLCALC, HDL Assessment: Diagnoses and all orders for this visit: PAF (paroxysmal atrial fibrillation) (CMS/HCC) (Primary) Essential hypertension Chronic anticoagulation History of paroxysmal atrial fibrillation that was diagnosed about 2 years ago. Since that time sheis remained well controlled on metoprolol. After her recent hospitalization she was discharged on both metoprolol and diltiazem. She is in normal sinus rhythm today. I am going to stop her diltiazem as she has previously been well controlled with metoprolol only. Her blood pressure is at goal. Continue systemic anticoagulation with Xarelto. She is not having any signs or symptoms of bleeding. She will follow up with Dr. Oscar in 3 months or earlier if clinically indicated. Brittani JOE- Nurse Practitioner with [facility] Cardiology This note is dictated and transcribed using [employer] Direct Software. Shampoo Assistant variancesmay occur. Despite proofreading, typographical errors may occur. documented in this encounter Plan of Treatment Not on file documented as of this encounter Procedures Procedure Name Priority Date/Time Associated Diagnosis Comments ECG 12-LEAD Routine 10/19/2020 PAF (paroxysmal atrial fibrillation) (CMS/HCC) documented in this encounter Results * ECG 12 lead (10/19/2020) Brittani Saldaña NP ECG ORDERABLES Final Result documented in this encounter Visit Diagnoses Diagnosis PAF (paroxysmal atrial fibrillation) (CMS/HCC) (HCC)- Primary Atrial fibrillation Essential hypertension Unspecified essential hypertension Chronic anticoagulation Encounter for long-term (current) use of anticoagulants documented in this encounter Historical Medications * This list may reflect changes made after this encounter. dilTIAZem CD 120 mg 24 hr capsule Take 120 mg by mouth daily 09/29/2020 11/15/2020 added in this encounter Care Teams Liquor Merchant Relationship Specialty Start Date End Date Jason Isaacs MD PCP - General Internal Medicine 07/13/18 documented as of this encounter
--- OUTSIDE RECORDS SUMMARY | 2024-04-12 04:09 | XMS_ITS | Encounter Summary ---
Author Organization [facility] Address [address] [place] [address] Care Team Providers Care Nurse Behavioral Health Care Name Role Phone Jason Isaacs MD Primary Care Provider [phone] Reason for Visit * Cardiology (Routine) - Closed Specialty Diagnoses / Procedures Referred By Contac t Referred To Contact Diagnoses Essential hypertension SOB (shortness of breath) Procedures Transthoracic Echo (TTE) Complete W Doppler/CF Jeane Gill MD [address] [address] Phone: tel: fax: [facility] Referral ID Status Reason Start Date Expiration Date Visits Re quested Visits Authorized [id number] Closed 06/24/2023 07/23/2024 1 1 Encounter Details Date Type Department Care Team (Latest Contact Info) Description 06/30/2023 12:30 PM IT COMPLIANCE ANALYST Ancillary Procedure [facility] Cardiology at [address] [place] [address] Essential hypertension; SOB (shortness of breath) Social History Tobacco Use Types Packs/Day Years [...] file Legal Sex Female 12:00 AM IT COMPLIANCE ANALYST Gender Identity Not on file Sexual Orientation Not on file documented as of this encounter Plan of Treatment Not on file documented as of this encounter Procedures Procedure Name Priority Date/Time Associated Diagnosis Comments TRANSTHORACIC ECHO (TTE) COMPLETE W DOPPLER/CF WO CONTRAST Routine 06/30/2023 1:06 PM IT COMPLIANCE ANALYST Essential hypertension SOB (shortness of breath) documented in this encounter Results * TRANSTHORACIC ECHO (TTE) COMPLETE W DOPPLER/CF WO CONTRAST (06/30/2023 1:06 PM IT COMPLIANCE ANALYST) Anatomical Region Laterality Modality Ultrasound 06/30/2023 12:3 0 PM IT COMPLIANCE ANALYST Narrative 06/30/2023 4:[address]IANCE ANALYST [facility] Cardiology [address], [address], [place] [address] P:[phone] P:[phone] Echocardiographic Report Patient Name: CHASIDY THOMAS K : 1945 Study Date: 06/30/2023 12:30:46 PM Gender: F Tech: Location: [facility] Ref Provider: JEANE GILL ?Height(Cm): 175 BSA: 1.81 Weight(Kg): 67.6 Heart Rate: 75 BP: 144 / 80 Quality: Good Order Provider: JEANE GILL PROCEDURES: Echocardiographic Report: Transthoracic echocardiogram with complete 2D, M-Mode, and color Doppler examination. With Strain Analysis. INDICATIONS: Hypertension, and Shortness of breath. Measurements: 2D/MM ?Value ? Range ?Doppler ?Value ? Range EF Mod ? 62 ? AV Mean PG ? 3 mmHg EF Teich MM ?56 % ?[ 54 - 74 ] ?AV Peak Varinder ?1.26 m/s ?[ 1.00 - 1.70 ] LVIDd 2D ? 4.48 cm ? [ 3.80 - 5.20 ] ?AV Peak PG ? 6 mmHg LVIDd MM ? 5.85 cm ? [ 3.80 - 5.20 ] ?AV VTI ? 29.67 cm LVIDs 2D ? 2.87 cm ? [ 2.20 - 3.50 ] ?LVOT Peak Varinder ?1.01 m/s ?[ 0.70 - 1.10 ] LVIDs MM ? 4.12 cm ? [ 2.20 - 3.50 ] ?LVOT VTI ? 24.30 cm LVPWd 2D ? 0.71 cm ? [ 0.60 - 0.90 ] ?MV E Peak Varinder ?1.23 m/s ?[ 0.60 - 1.30 ] LVPWd MM ? 0.78 cm ? [ 0.60 - 0.90 ] ?MV A Peak Varinder ?1.00 m/s ?[ 1.00 - 1.20 ] IVSd 2D ?0.77 cm ? [ 0.60 - 0.90 ] ?MV Decel Time ?201 msec ?[ 104 - 258 ] IVSd MM ?0.87 cm ? [ 0.60 - 0.90 ] ?PV Peak Varinder ?0.88 m/s ?[ 0.40 - 0.80 ] LA Dimension MM ?3.32 cm ? [ 2.70 - 3.80 ] ?TR Peak Varinder ?2.84 m/s ?[ 1.00 - 2.80 ] AoR Diam MM ?3.92 cm ? [ 2.70 - 3.70 ] ?TR Peak PG ? 32 mmHg LA Volume Index ?23 cc/m2 ?[ 16 - 34 ] ?RVSP ? 35.00 mmHg ?[ 10.00 - 36.00 ] ACS MM ? 1.96 cm ?E` ? 0.09 m/s E/E` ? 14 2D/MM ?Value ? Range ?Doppler ?Value ? Range - FINDINGS: Interpretation Site: Exam was interpreted at [facility]. Left Ventricle: Normal left ventricular systolic function. No focal wall motion abnormalities. Normal left ventricular wall thickness. Mild enlargement of left ventricle cavity. There is pseudonormal diastolic dysfunction Grade II. Ejection fraction is visually estimated at 60 %. Ejection fraction is measured at 62 %. Global Longitudinal Strain is -20 %. GLS is normal. Right Ventricle: Normal right ventricular size. Normal right ventricular systolic function. Left Atrium: There is mild enlargement of left atrium. Right Atrium: The right atrium is normal in size. Atrial Septum: Normal atrial septum. Mitral Valve: Normal appearance of the mitral valve. Moderate mitral valve regurgitation. There is no hemodynamically significant mitral stenosis by Doppler. Aortic Valve: No evidence of hemodynamically significant aortic stenosis by Doppler. Aortic cusps appear mildly sclerotic. Trileaflet aortic valve. Trace aortic valve regurgitation. Tricuspid Valve: Normal appearance of the tricuspid valve. Mild pulmonary hypertension based on right ventricular systolic pressure. Estimated peak RVSP is 35-40 mmHg. Mild tricuspid regurgitation. Pulmonic Valve: Normal appearance of the pulmonic valve. No pulmonic stenosis. Mild pulmonic regurgitation. Pericardium: Trivial pericardial effusion. Aorta: Normal aortic root. IVC: Normal size and normal respiratory collapse consistent with normal right atrial pressure (<5 mmHg). CONCLUSIONS: Normal left ventricular systolic function. No focal wall motion abnormalities. Normal left ventricular wall thickness. Mild enlargement of left ventricle cavity. There is pseudonormal diastolic dysfunction Grade II. Ejection fraction is visually estimated at 60 %. Ejection fraction is measured at 62 %. Global Longitudinal Strain is -20 %. GLS is normal. There is mild enlargement of left atrium. Moderate mitral valve regurgitation. Mild pulmonary hypertension based on right ventricular systolic pressure. Estimated peak RVSP is 35-40 mmHg. Mild tricuspid regurgitation. Mild pulmonic regurgitation. Normal sinus rhythm. Electronically Signed By: Jeane Gill MD 2023-06-30 16:00:40 IT COMPLIANCE ANALYST Procedure Note Jeane Gill MD - 06/30/2023 [facility] Cardiology [address], [address], [place] [address] P:[phone] P:[phone] Echocardiographic Report Patient Name: CHASIDY THOMAS K : 1945 Study Date: 06/30/2023 12:30:46 PM Gender: F Tech: Location: [facility] Ref Provider: JEANE GILL Height(Cm): 175 BSA: 1.81 Weight(Kg): 67.6 Heart Rate: 75 BP: 144 / 80 Quality: Good Order Provider: JEANE GILL PROCEDURES: Echocardiographic Report: Transthoracic echocardiogram with complete 2D, M-Mode, and color Dopplerexamination. With Strain Analysis. INDICATIONS: Hypertension, and Shortness of breath. Measurements: 2D/MM Value Range Doppler ValueRange EF Mod 62 AV Mean PG 3mmHg EF Teich MM 56 % [ 54 - 74 ] AV Peak Varinder 1.26m/s [ 1.00 - 1.70 ] LVIDd 2D 4.48 cm [ 3.80 - 5.20 ] AV Peak PG 6mmHg LVIDd MM 5.85 cm [ 3.80 - 5.20 ] AV VTI 29.67cm LVIDs 2D 2.87 cm [ 2.20 - 3.50 ] LVOT Peak Varinder 1.01m/s [ 0.70 - 1.10 ] LVIDs MM 4.12 cm [ 2.20 - 3.50 ] LVOT VTI 24.30cm LVPWd 2D 0.71 cm [ 0.60 - 0.90 ] MV E Peak Varinder 1.23m/s [ 0.60 - 1.30 ] LVPWd MM 0.78 cm [ 0.60 - 0.90 ] MV A Peak Varinder 1.00m/s [ 1.00 - 1.20 ] IVSd 2D 0.77 cm [ 0.60 - 0.90 ] MV Decel Time 201msec [ 104 - 258 ] IVSd MM 0.87 cm [ 0.60 - 0.90 ] PV Peak Varinder 0.88m/s [ 0.40 - 0.80 ] LA Dimension MM 3.32 cm [ 2.70 - 3.80 ] TR Peak Varinder 2.84m/s [ 1.00 - 2.80 ] AoR Diam MM 3.92 cm [ 2.70 - 3.70 ] TR Peak PG 32mmHg LA Volume Index 23 cc/m2 [ 16 - 34 ] RVSP 35.00mmHg [ 10.00 - 36.00 ] ACS MM 1.96 cm E` 0.09m/s E/E` 14 2D/MM Value Range Doppler ValueRange - FINDINGS: Interpretation Site: Exam was interpreted at [facility]. Left Ventricle: Normal left ventricular systolic function. No focal wall motionabnormalities. Normal left ventricular wall thickness. Mild enlargement of left ventriclecavity. There is pseudonormal diastolic dysfunction Grade II. Ejection fraction is visuallyestimated at 60 %. Ejection fraction is measured at 62 %. Global Longitudinal Strain is-20 %. GLS is normal. Right Ventricle: Normal right ventricular size. Normal right ventricular systolicfunction. Left Atrium: There is mild enlargement of left atrium. Right Atrium: The right atrium is normal in size. Atrial Septum: Normal atrial septum. Mitral Valve: Normal appearance of the mitral valve. Moderate mitral valveregurgitation. There is no hemodynamically significant mitral stenosis by Doppler. Aortic Valve: No evidence of hemodynamically significant aortic stenosis by Doppler.Aortic cusps appear mildly sclerotic. Trileaflet aortic valve. Trace aortic valveregurgitation. Tricuspid Valve: Normal appearance of the tricuspid valve. Mild pulmonary hypertensionbased on right ventricular systolic pressure. Estimated peak RVSP is 35-40 mmHg. Mildtricuspid regurgitation. Pulmonic Valve: Normal appearance of the pulmonic valve. No pulmonic stenosis. Mildpulmonic regurgitation. Pericardium: Trivial pericardial effusion. Aorta: Normal aortic root. IVC: Normal size and normal respiratory collapse consistent with normal rightatrial pressure (<5 mmHg). CONCLUSIONS: Normal left ventricular systolic function. No focal wall motionabnormalities. Normal left ventricular wall thickness. Mild enlargement of left ventriclecavity. There is pseudonormal diastolic dysfunction Grade II. Ejection fraction is visuallyestimated at 60 %. Ejection fraction is measured at 62 %. Global Longitudinal Strain is-20 %. GLS is normal. There is mild enlargement of left atrium. Moderate mitral valve regurgitation. Mild pulmonary hypertension based on right ventricular systolic pressure.Estimated peak RVSP is 35-40 mmHg. Mild tricuspid regurgitation. Mild pulmonic regurgitation. Normal sinus rhythm. Electronically Signed By: Jeane Gill MD 2023-06-30 16:00:40 IT COMPLIANCE ANALYST us Jeane Gill MD CV ECHO PROCEDURES Final Result documented in this encounter Visit Diagnoses Diagnosis Essential hypertension Unspecified essential hypertension SOB (shortness of breath) Shortness of breath documented in this encounter Care Teams Nurse Behavioral Health Care Relationship Specialty Start Date End Date Jason Isaacs MD PCP - General Internal Medicine 07/13/18 documented as of this encounter
--- OUTSIDE RECORDS SUMMARY | 2024-04-12 04:09 | XMS_ITS | Encounter Summary ---
Author Organization [facility] Healthcare Address [address] [place] [address] Care Team Providers Care Elementary Science Teacher Name Role Phone Jason Isaacs MD Primary Care Provider [phone] Encounter Details Date Type Department Care Team ([facility] st Contact Info) Description 02/25/2023 Telephone [facility] Medical Group Cardiology [address] [place] [address] Edilberto Oscar MD [address] [id number] Social History Tobacco Use Types Packs/Day Years Used Date Smoking Tobacco: Former Cigarettes Q uit: 07/13/1998 Smokeless Tobacco: Never Alcohol Use Standard Drinks/Week Comments Yes 2 (1 standard drink = 0.6 oz pur e alcohol) 2 beers a day Comments Unknown Sex and Gender Information Value Date Recorded Sex Assigned at Not on file 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 * Telephone Encounter - Kindra Dubois - 02/25/2023 9:42 AM CDT Ganga called from [facility] states she faxed a cardiac clearance request on 02/19. She faxed it to [phone]. Gave RN fax for her to re sent it. Contact: documented in this encounter Plan of Treatment Not on file documented as of this encounter Visit Diagnoses Not on filedocumented in this encounter Care Teams Elementary Science Teacher Relationship Specialty Start Date End Date Jason Isaacs MD PCP - General Internal Medicine 07/13/18 documented as of this encounter
--- OUTSIDE RECORDS SUMMARY | 2024-04-12 04:09 | XMS_ITS | Encounter Summary ---
Author Organization [facility] Medical [facility] Address [address] [facility] [address] [place] [id number] Care Team Providers Care Gauge Machine Operator Name Role Phone Jason Isaacs MD Primary Care Provider [phone] Reason for Referral * Cardiology (Routine) - Closed Specialty Diagnoses / Procedures Referred By Contac t Referred To Contact Diagnoses Abnormal electrocardiogram (ECG) (EKG) Fatigue, unspecified type Procedures Transthoracic Echo Complete W Doppler/CF Cathie Rizvi NP [address] [place] [id number] Phone: tel: fax: [facility] Referral ID Status Reason Start Date Expiration Date Visits Re quested Visits Authorized [id number] Closed 05/29/2020 06/28/2021 1 1 ECTOR AND MENDER Reason for Visit * Reason Comments Shortness of Breath started several week s ago and PCP recommended visit with perianesthesia nurse. Rapid Heart Rate Fatigue Encounter Details Date Type Department Care Team (Late st Contact Info) Description 05/29/2020 9:30 AM INSPECTOR AND MENDER Office Visit [facility] Medical [facility] Cardiology [address] [place] [phone] Cathie Rizvi NP [address] [place], [place] [id number] Fatigue, unspecified type (Primary Dx); PAF (paroxysmal atrial fibrillation) (CMS/HCC); Abnormal electrocardiogram (ECG) (EKG) ; Anemia, unspecified type; Chronic anticoagulation; Stage 3b chronic kidney disease Social History Tobacco Use Types Packs/Day Years Used Date Smoking Tobacco: Former Cigarettes Q uit: 07/13/1998 Smokeless Tobacco: Never Alcohol Use Standard Drinks/Week Comments Yes 2 (1 standard drink = 0.6 oz pur e alcohol) 2 beers a day Comments Unknown Sex and Gender Information Value Date Recorded Sex Assigned at Not on file Legal Sex Female 12:00 AM INSPECTOR AND MENDER Gender Identity Not on file Sexual Orientation Not on file documented as of this encounter Last Filed Vital Signs Vital Sign Reading Time Taken Comments Blood Pressure 132/68 05/29/2020 9:48 AM INSPECTOR AND MENDER Pulse 107 05/29/2020 9:48 AM INSPECTOR AND MENDER Temperature - - Respiratory Rate - - Oxygen Saturation 99% 05/29/2020 9:48 AM INSPECTOR AND MENDER Inhaled Oxygen Concentration - - Weight 65.7 kg (144 lb 12.8 oz) 021 9:48 AM INSPECTOR AND MENDER Height 175.3 cm (5' 9 ) 05/29/2020 9:48 AM INSPECTOR AND MENDER Body Mass Index 21.38 05/29/2020 9:48 AM INSPECTOR AND MENDER documented in this encounter Ordered Prescriptions Prescription Sig Dispense Quantity Refills Last Filled Start Date End Date metoprolol XL (TOPROL-XL) 25 mg extended release tabletIndications: Fatigue, unspecified type Take 0.5 tablets (12.5 mg total) by mouth daily 15 tablet 3 05/29/2020 documented in this encounter Progress Notes * Cathie Rizvi NP - 05/29/2020 9:30 AM CST Images from the original note were not included. [facility] Medical Group Cardiology [address] [place] [address] Date of Visit: 05/29/2020 Patient ID: Chasidy Thomas 1945 Chief Complaint: Chasidy Thomas is a 74 y.o. female who is an established patient of Dr. Oscar with atrial fibrillation coming the office for complaint of fatigue and palpitations. History of Present Illness: Chasidy Thomas is [...] the addition of carvedilol Office visit with DIRECTOR OF RESERVATIONS 10/10/2019: She called the office a few weeks ago with complaint of some chestheaviness and ???feeling funny. Her home blood pressure machine had given an irregular heart beat indication. Dr. Oscar advised a 7 day veneer layer and stress testing. Since the week she [...] paroxysmal nocturnal dyspnea, orthopnea, edema or palpitations. Office visit with DIRECTOR OF RESERVATIONS 05/29/2020: For the last several weeks (3 or more) she has been noticing significant fatigue. ???It is an effort to do something like take a shower.?I don't feel any pep.?? Her blood pressure was running low (systolic 80s). She saw PCP 2 weeks ago and PCP stopped carvedilol and sent her for labs.. Blood pressure improved systolic 107-126) but now she is feeling her heart beating faster, even at rest. Recent resting heart rates have recorded 89- 112. Lab results from 05/16/2020 showed H&H 9.0 and 29.0, K 4.0, BUN 30, creatinine 1.97, GFR 25. Records that I personally reviewed on the day of this visit include: (the interpretation is outlined in the HPI above) 01/12/[address] Oscar, 03/15/[address] Gao, 05/16/2020 lab results I have also reviewed: allergies, current medications, past family history, past medical history, past social history, past surgical history and problem list Review of Systems Constitution: Positive for malaise/fatigue. Negative for diaphoresis, fever, weight gain and weightloss. HENT: Negative for hearing loss. Eyes: Negative for visual disturbance. Cardiovascular: Negative for chest pain, claudication, leg swelling, orthopnea, palpitations, paroxysmal nocturnal dyspnea and syncope. Respiratory: Positive for cough and shortness of breath. Negative for hemoptysis, snoring and wheezing. Hematologic/Lymphatic: Bruises/bleeds easily. Skin: Negative for poor wound healing and rash. Musculoskeletal: Positive for joint pain (rheumatoid arth). Negative for myalgias. Gastrointestinal: Positive for heartburn. Negative for nausea and vomiting. Genitourinary: Negative for hematuria. Neurological: Negative for dizziness, headaches and light-headedness. Psychiatric/Behavioral: Negative for depression. The patient is not nervous/anxious. Vital Signs: BP 132/68 (BP Location: Right arm, Patient Position: Sitting) Pulse 107 Ht 175.3 cm (5' 9 ) Wt 65.7 kg (144 lb 12.8 oz) SpO2 99% BMI 21.38 kg/m?? Physical Exam Constitutional: She is oriented to person, place, and time. She appears well- developed and well-nourished. No distress. HENT: Head: Normocephalic and atraumatic. Nose: Nose normal. Wearing a mask Eyes: Pupils are equal, round, and reactive to light. Conjunctivae and EOM are normal. No scleral icterus. Neck: Normal range of motion. No JVD present. No tracheal deviation present. Cardiovascular: Regular rhythm and normal heart sounds. Tachycardia present. No murmur heard. Pulmonary/Chest: Effort normal and breath sounds normal. No respiratory distress. Abdominal: Soft. Bowel sounds are normal. There is no abdominal tenderness. Musculoskeletal: Normal range of motion. General: No edema. Neurological: She is alert and oriented to person, place, and time. Skin: Skin is warm and dry. Psychiatric: She has a normal mood and affect. Allergies Allergen Reactions ??? Oxycodone Dizziness, Hypotension, Nausea only and Stomach upset ??? Sulfasalazine Nausea only Current Outpatient Medications: ??? ALPRAZolam (XANAX) 0.5 mg tablet, , Disp: , Rfl: ??? ascorbic acid (ascorbic acid with trish hips) 500 mg tablet,chewable, , Disp: , Rfl: ??? atorvastatin (LIPITOR) 20 mg tablet, , Disp: , Rfl: ??? calcium citrate-vitamin D3 200 mg calcium -250 unit tablet, 1 tablet., Disp: , Rfl: ??? hydroCHLOROthiazide (HYDRODIURIL) 25 mg tablet, Take 25 mg by mouth daily, Disp: , Rfl: 2 ??? leflunomide (ARAVA) 10 mg tablet, , Disp: , Rfl: ??? losartan (COZAAR) 25 mg tablet, , Disp: , Rfl: ??? magnesium oxide (MAG-OX) 400 mg (241.3 mg elemental magnesium) tablet, Take 1 tablet by mouth 2(two) times a day, Disp: , Rfl: 99 ??? omeprazole (PriLOSEC) 40 mg capsule, Take 40 mg by mouth daily., Disp: , Rfl: ??? predniSONE (DELTASONE) 5 mg tablet, , Disp: , Rfl: ??? spironolactone (ALDACTONE) 25 mg tablet, Take 50 mg by mouth daily, Disp: , Rfl: 0 ??? Xarelto 15 mg tablet, TAKE 1 TABLET BY MOUTH EVERY DAY, Disp: 90 tablet, Rfl: 3 ??? metoprolol XL (TOPROL-XL) 25 mg extended release tablet, Take 0.5 tablets (12.5 mg total) by mouth daily, Disp: 15 tablet, Rfl: 3 No results found for: POTASSIUM, BUNSER, CREATININE, CHOL, TRIG, LDL, LDLCALC, HDL Assessment: Diagnoses and all orders for this visit: Fatigue, unspecified type (Primary) - Transthoracic Echo Complete W Doppler/CF; Future - metoprolol XL (TOPROL-XL) 25 mg extended release tablet; Take 0.5 tablets (12.5 mg total) by mouth daily PAF (paroxysmal atrial fibrillation) (CMS/HCC) Abnormal electrocardiogram (ECG) (EKG) - Transthoracic Echo Complete W Doppler/CF; Future Anemia, unspecified type Chronic anticoagulation Stage 3b chronic kidney disease Plan/Recommendations: She was taken off carvedilol 3.125 mg bid because of hypotension and hypotension resolved. However,with her history of PAF, I am concerned about her not having any beta-joselo therapy. I will put her on low-dose of Toprol-XL. I will prescribe Toprol XL 25 mg and have her take half tablet daily. To further evaluate her fatigue I will bring her back for a new echocardiogram to reassess her LV function. I am highly suspicious that her CKD is playing into her symptoms of fatigue and activity intolerance. Not sure whether her anemia is completely due to the CKD, or if there is another culprit for the anemia. She is on Xarelto, has not noticed any occult bleeding, but perhaps this should be followed up further with a GI workup? She is having labs repeated later this week, so it will be good to see if her blood counts are trending down. I also asked her to call Dr. Gao's office to follow-up on the renal ultrasound. I will follow-up with her over the phone about the results of the echo when they are available and I told her to keep the follow-up visit with Dr. Oscar next month. She agreed. Cathie Rizvi, TATYANA- Nurse Practitioner with [facility] Cardiology This note is dictated and transcribed using Visiogen Direct Software. Plasterer Spray Gun variancesmay occur. Despite proofreading, typographical errors may occur. Cosigned by Edilberto Oscar MD at 05/30/2020 9:28 AM INSPECTOR AND MENDER ECTOR AND MENDER ECTOR AND MENDER documented in this encounter Plan of Treatment Not on file documented as of this encounter Results * TRANSTHORACIC ECHO (TTE) COMPLETE W DOPPLER/CF WO CONTRAST (06/12/2020 12:52 PM INSPECTOR AND MENDER) Anatomical Region Laterality Modality Ultrasound 06/12/2020 11:5 4 AM INSPECTOR AND MENDER Narrative 06/12/2020 2:32 PM INSPECTOR AND MENDER [facility] Medical Group Cardiology [address], [place] [address] [address], [place] [address] P:[phone] P:[phone] Echocardiographic Report Patient Name: CHASIDY THOMASDomingo : 04-24-1946 Study Date: 06/12/2020 11:54:36 AM Gender: F Tech: Location: [place] Ref.Provider: MELISSA Height(Cm): 175 BSA: 1.8 Weight(Kg): 65.32 Heart Rate: 82 BP: 137/66 Quality: Good Order Provider: CATHIE RIZVI Procedures: Echocardiographic Report: Transthoracic echocardiogram with complete 2D, M-Mode, and color Doppler examination. Indications: Abnormal EKG. Measurements: 2D/M Mode ?Doppler ? Measurement ?Value ?Normal Range ? Measurement ?Value ?Normal Range ? EF Mod ? 74 ?AV Mean PG ? 4 ?mmHg ? EF MM ?72 ? [ 55 - 70 ] % ?AV Peak Varinder ?1.51 ? m/s ? LVIDd MM ? 4.53 ? [ 3.90 - 5.30 ] cm ? AV Peak PG ? 9 ?mmHg ? LVIDs MM ? 2.67 ? [ 2.30 - 3.90 ] cm ? AV VTI ? 0.31 ? cm ? LVPWd MM ? 1.07 ? [ 0.60 - 1.00 ] cm ? LVOT Peak Varinder ?1.21 ? [ 0.70 - 1.10 ] m/s ? IVSd MM ?1.07 ? [ 0.60 - 0.90 ] cm ? LVOT VTI ? 0.26 ? cm ? LA Dimension MM ?3.20 ? [ 2.70 - 3.80 ] cm ? MV E Peak Varinder ?0.91 ? [ 0.60 - 1.30 ] m/s ? AoR Diam MM ?3.20 ? [ 2.60 - 3.70 ] cm ? MV A Peak Varinder ?0.94 ? [ 0.40 - 0.80 ] m/s ? LA Volume Index ?21.00 ?[ 16.00 - 28.00 ] cc/m2 ?MV Decel Time ?250 ?[ 150 - 200 ] msec ? ACS MM ? 1.87 ? cm ? PV Peak Varinder ?0.92 ? [ 0.40 - 0.80 ] m/s ? TR Peak Varinder ?2.70 ? [ 0.40 - 0.80 ] m/s ? TR Peak PG ? 29 ? mmHg ? RVSP ? 37.00 ?mmHg ? E' ? 0.08 ? E/E' ? 12 ? Findings: Interpretation Site: Exam was interpreted at [facility]. Left Ventricle: Normal left ventricular systolic function. No focal wall motion abnormalities. Normal left ventricular size. Mild concentric left ventricular hypertrophy. Impaired diastolic relaxation Grade I. Ejection fraction is measured at 74 %. Right Ventricle: Normal right ventricular size. Normal right ventricular systolic function. Left Atrium: The left atrium is normal in size. Right Atrium: The right atrium is normal in size. Atrial Septum: Normal atrial septum. Mitral Valve: Mitral valve leaflets appear mildly thickened. Mild mitral annular calcification. Mild mitral valve regurgitation. Aortic Valve: Normal appearance of the aortic valve. No evidence of hemodynamically significant aortic stenosis by Doppler. Aortic cusps appear mildly sclerotic. Trileaflet aortic valve. No aortic regurgitation. Tricuspid Valve: Normal appearance of the tricuspid valve. Mild pulmonary hypertension based on right ventricular systolic pressure. Estimated peak RVSP is 37 mmHg. Trivial regurgitation in the tricuspid valve. Pulmonic Valve: Pulmonic valve not well visualized. Trivial regurgitation in the pulmonic valve. Pericardium: Normal pericardium with no significant pericardial effusion. Trivial pericardial effusion. Aorta: Normal aortic root. No aortic root dilation. Mild aortic root calcification. IVC: Normal size and normal respiratory collapse consistent with normal right atrial pressure (<5 mmHg). Conclusions: Normal left ventricular systolic function. No focal wall motion abnormalities. Normal left ventricular size. Mild concentric left ventricular hypertrophy. Impaired diastolic relaxation Grade I. Ejection fraction is measured at 74 %. Mitral valve leaflets appear mildly thickened. Mild mitral annular calcification. Mild mitral valve regurgitation. Normal appearance of the tricuspid valve. Mild pulmonary hypertension based on right ventricular systolic pressure. Estimated peak RVSP is 37 mmHg. Trivial regurgitation in the tricuspid valve. Normal sinus rhythm. Electronically Signed By: Shaggy Jackson MD 2020-06-12 14:32:06 INSPECTOR AND MENDER Procedure Note Maykel Jackson MD - 06/12/2020 [facility] Medical Group Cardiology [address] [facility] [address], [place] [address] [address] [facility] [address], [id number] [address] P:[phone] P:[phone] Echocardiographic Report Patient Name: CHASIDY THOMAS KPatient ID: [id number] : [id number] Date: 06/12/2020 11:54:36 AM Gender: FAccession #: [id number] Tech: GMLocation: [place] Ref.Provider: Za(Cm): 175 BSA: 1.8Weight(Kg): 65.32 Heart Rate: 82BP: 137/66 Quality: GoodOrder Provider: CATHIE RIZVI Procedures: Echocardiographic Report: Transthoracic echocardiogram with complete 2D, M-Mode, and color Dopplerexamination. Indications: Abnormal EKG. Measurements: 2D/M Mode Doppler Measurement Value Normal Range MeasurementValue Normal Range EF Mod 74 AV Mean PG 4mmHg EF MM 72 [ 55 - 70 ] % AV Peak Vel1.51 m/s LVIDd MM 4.53 [ 3.90 - 5.30 ] cm AV Peak PG 9mmHg LVIDs MM 2.67 [ 2.30 - 3.90 ] cm AV VTI0.31 cm LVPWd MM 1.07 [ 0.60 - 1.00 ] cm LVOT Peak Vel1.21 [ 0.70 - 1.10 ] m/s IVSd MM 1.07 [ 0.60 - 0.90 ] cm LVOT VTI0.26 cm LA Dimension MM 3.20 [ 2.70 - 3.80 ] cm MV E Peak Vel0.91 [ 0.60 - 1.30 ] m/s AoR Diam MM 3.20 [ 2.60 - 3.70 ] cm MV A Peak Vel0.94 [ 0.40 - 0.80 ] m/s LA Volume Index 21.00 [ 16.00 - 28.00 ] cc/m2 MV Decel Soqt643 [ 150 - 200 ] msec ACS MM 1.87 cm PV Peak Vel0.92 [ 0.40 - 0.80 ] m/s TR Peak Vel2.70 [ 0.40 - 0.80 ] m/s TR Peak PG 29mmHg RVSP37.00 mmHg E'0.08 E/E' 12 Findings: Interpretation Site: Exam was interpreted at [facility]. Left Ventricle: Normal left ventricular systolic function. No focal wall motionabnormalities. Normal left ventricular size. Mild concentric left ventricular hypertrophy.Impaired diastolic relaxation Grade I. Ejection fraction is measured at 74 %. Right Ventricle: Normal right ventricular size. Normal right ventricular systolicfunction. Left Atrium: The left atrium is normal in size. Right Atrium: The right atrium is normal in size. Atrial Septum: Normal atrial septum. Mitral Valve: Mitral valve leaflets appear mildly thickened. Mild mitral annularcalcification. Mild mitral valve regurgitation. Aortic Valve: Normal appearance of the aortic valve. No evidence of hemodynamicallysignificant aortic stenosis by Doppler. Aortic cusps appear mildly sclerotic. Trileafletaortic valve. No aortic regurgitation. Tricuspid Valve: Normal appearance of the tricuspid valve. Mild pulmonary hypertensionbased on right ventricular systolic pressure. Estimated peak RVSP is 37 mmHg. Trivialregurgitation in the tricuspid valve. Pulmonic Valve: Pulmonic valve not well visualized. Trivial regurgitation in the pulmonicvalve. Pericardium: Normal pericardium with no significant pericardial effusion. Trivialpericardial effusion. Aorta: Normal aortic root. No aortic root dilation. Mild aortic rootcalcification. IVC: Normal size and normal respiratory collapse consistent with normal rightatrial pressure (<5 mmHg). Conclusions: Normal left ventricular systolic function. No focal wall motionabnormalities. Normal left ventricular size. Mild concentric left ventricular hypertrophy.Impaired diastolic relaxation Grade I. Ejection fraction is measured at 74 %. Mitral valve leaflets appear mildly thickened. Mild mitral annularcalcification. Mild mitral valve regurgitation. Normal appearance of the tricuspid valve. Mild pulmonary hypertensionbased on right ventricular systolic pressure. Estimated peak RVSP is 37 mmHg. Trivialregurgitation in the tricuspid valve. Normal sinus rhythm. Electronically Signed By: Shaggy Jackson MD 2020-06-12 14:32:06 INSPECTOR AND MENDER Cathie Rizvi NP CV ECHO PROCEDURES Final Result documented in this encounter Visit Diagnoses Diagnosis Fatigue, unspecified type- Primary PAF (paroxysmal atrial fibrillation) (CMS/HCC) (HCC) Atrial fibrillation Abnormal electrocardiogram (ECG) (EKG) Anemia, unspecified type Chronic anticoagulation Encounter for long-term (current) use of anticoagulants Stage 3b chronic kidney disease (HCC) Abnormal electrocardiogram (ECG) (EKG) Fatigue, unspecified type documented in this encounter Discontinued Medications Medication Sig Discontinue Reason Start Date End Da te lysine 500 mg tablet 500 mg. Therapy completed potassium 99 mg tablet Take by mouth. Therapy completed 021 carvediloL (COREG) 3.125 mg tablet Take 3.125 mg by mouth 2 (two) times a day with meals Therapy completed 05/29/2020 vitamin B complex capsule Take 1 capsule by mouth daily Therapy completed 05/29/2020 documented as of this encounter Historical Medications * This list may reflect changes made after this encounter. losartan (COZAAR) 25 mg tablet Take 25 mg by mouth daily 12/09/2019 11/15/2020 added in this encounter Care Teams Gauge Machine Operator Relationship Specialty Start Date End Date Jason Isaacs MD PCP - General Internal Medicine 07/13/18 documented as of this encounter
--- OUTSIDE RECORDS SUMMARY | 2024-04-12 04:09 | XMS_ITS | Encounter Summary ---
Author Organization [facility] Medical Group Address [address] [place] [address] Care Team Providers Care Shafting Worker Name Role Phone Jason Isaacs MD Primary Care Provider [phone] Encounter Details Date Type Department Care Team (Late st Contact Info) Description 09/28/2020 Telephone [facility] Medical Group Cardiology [address] [place] [address] Edilberto Oscar MD [address] [id number] Social History Tobacco Use Types Packs/Day Years Used Date Smoking Tobacco: Former Cigarettes Q uit: 07/13/1998 Smokeless Tobacco: Never Alcohol Use Standard Drinks/Week Comments Yes 2 (1 standard drink = 0.6 oz pur e alcohol) 2 beers a day Comments Unknown Sex and Gender Information Value Date Recorded Sex Assigned at Not on file Legal Sex Female 12:00 AM AGENCY SALES DIRECTOR Gender Identity Not on file Sexual Orientation Not on file documented as of this encounter Miscellaneous Notes * Telephone Encounter - Kristina Kirkpatrick RN - 09/28/2020 12:55 PM CDT Number for call back to Dr Colvin given to [facility]. * Telephone Encounter - Yoselyn Bunch - 09/28/2020 12:[address] Colvin is requesting a call from [facility]. No details was given [phone] documented in this encounter Plan of Treatment Not on file documented as of this encounter Visit Diagnoses Not on filedocumented in this encounter Care Teams Shafting Worker Relationship Specialty Start Date End Date Jason Isaacs MD PCP - General Internal Medicine 07/13/18 documented as of this encounter
--- OUTSIDE RECORDS SUMMARY | 2024-04-12 04:09 | XMS_ITS | Encounter Summary ---
Author Organization [facility] Facility Care Team Providers Care Clerk Funeral Detail Name Role Phone Jason Isaacs MD Primary Care Provider [phone] Encounter Details Date Type Department Care Team (Latest Contact Info) Description 07/25/2019 Travel Social History Tobacco Use Types Packs/Day Years Used Date Smoking Tobacco: Former Cigarettes Q uit: 07/13/1998 Smokeless Tobacco: Never Alcohol Use Standard Drinks/Week Comments Yes 2 (1 standard drink = 0.6 oz pur e alcohol) 2 beers a day Comments Unknown Sex and Gender Information Value Date Recorded Sex Assigned at Not on file Legal Sex Female 12:00 AM MERCURY PURIFIER Gender Identity Not on file Sexual Orientation Not on file COVID-19 Exposure Response Date Recorded In the last month, have you been in contact with someone who was confirmed or suspected to have Coronavirus / COVID-19? No / Unsure 07/25/2019 10:35 AM CDT documented as of this encounter Plan of Treatment Not on file documented as of this encounter Visit Diagnoses Not on filedocumented in this encounter Care Teams Clerk Funeral Detail Relationship Specialty Start Date End Date Jason Isaacs MD PCP - General Internal Medicine 07/13/18 documented as of this encounter
--- OUTSIDE RECORDS SUMMARY | 2024-04-12 04:09 | XMS_ITS | Encounter Summary ---
Author Organization [facility] Healthcare Address [address] [place] [address] Care Team Providers Care Lime Vat Tender Name Role Phone Jason Isaacs MD Primary Care Provider Reason for Visit * Reason Comments Atrial Fibrillation Hypertension Shortness of Breath 6 mo f/u Encounter Details Date Type Department Care Team (Latest Contact Info) Description 12/31/2023 9:30 AM CDT Office Visit 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 Gender Identity Not on file Sexual Orientation Not on file documented as of this encounter Last Filed Vital Signs Vital Sign Reading Time Taken Comments Blood Pressure 110/60 12/31/2023 9:16 AM CDT Pulse 64 12/31/2023 9:16 AM CDT Temperature - - Respiratory Rate - - Oxygen Saturation 97% 12/31/2023 9:16 AM CDT Inhaled Oxygen Concentration - - Weight 65.8 kg (145 lb) 12/31/2023 9:16 AM CDT Height 175.3 cm (5' 9 ) 12/31/2023 9:16 AM CDT Body Mass Index 21.41 12/31/2023 9:16 AM CDT documented in this encounter Progress Notes * Edilberto Oscar MD - 12/31/2023 9:30 AM CDT Images from the original note were not included. [facility] DATE OF VISIT: 12/31/2023 CHIEF COMPLAINT Chief Complaint Patient presents with Atrial Fibrillation Hypertension Shortness of Breath 6 mo f/u HPI Chasidy Thomas is a 78 y.o. female with atrial fibrillation. I saw [...] the addition of carvedilol Office visit with BONE PLANT SUPERVISOR 10/10/2019: She called the office a few weeks ago with complaint of some chestheaviness and ???feeling funny. Her home blood pressure machine had given an irregular heart beat indication. Dr. Oscar advised a 7 day playground monitor and stress testing. Since the week [...] paroxysmal nocturnal dyspnea orthopnea, edema, palpitations, bleeding Follow-up note 06/24/2023: She is having some worsening shortness breath. Shortness breath occurs randomly in usually while sitting. Will last for few minutes. No chest pain, syncope, presyncope paroxysmal nocturnal dyspnea, orthopnea. Her swelling has been a little bit worse as of late also. No pal pitations Follow-up note note 12/31/2023: Shortness breath has been stable. Has a little bit of swelling in her legs at times but not particularly worse than usual. No chest pain, syncope, presyncope, paroxysmal nocturnal dyspnea, orthopnea or palpitations MEDICAL HISTORY History reviewed. Was PAF, rheumatoid arthritis, hypertension Social History Tobacco Use Smoking status: Former Smoker Types: Cigarettes Quit date: 07/13/1998 Years since quittin.0 Smokeless tobacco: Never Used Substance Use Topics Alcohol use: Yes Alcohol/week: 2.0 standard drinks Types: 2 Cans of beer per week Comment: 2 beers a day Drug use: No No family history on file. MEDICATIONS Medication List Accurate as of December 31, 2023 9:45 AM. If you have any questions, ask your nurse or doctor. CONTINUE taking these medications ALPRAZolam 0.5 mg tablet Commonly known as: XANAX ascorbic acid 500 mg tablet,chewable Commonly known as: VITAMIN C atorvastatin 20 mg tablet Commonly known as: LIPITOR calcium citrate-vitamin D3 200 mg-6.25 mcg (250 unit) tablet cholecalciferol 78864 unit capsule Commonly known as: VITAMIN D-3 ferrous sulfate 325 mg (65 mg of elemental iron) tablet flecainide 50 mg tablet Commonly known as: TAMBOCOR TAKE 1 TABLET BY MOUTH TWICE A DAY leflunomide 10 mg tablet Commonly known as: ARAVA magnesium oxide 400 mg (241.3 mg elemental magnesium) tablet Commonly known as: MAG-OX metoprolol XL 25 mg extended release tablet Commonly known as: TOPROL-XL TAKE 1 TABLET BY MOUTH TWICE A DAY montelukast 10 mg tablet Commonly known as: SINGULAIR omeprazole 40 mg capsule Commonly known as: PriLOSEC predniSONE 5 mg tablet Commonly known as: DELTASONE spironolactone 25 mg tablet Commonly known as: ALDACTONE Xarelto 15 mg tablet Generic drug: rivaroxaban TAKE 1 TABLET BY MOUTH EVERY DAY STOP taking these medications furosemide 20 mg tablet Commonly known as: LASIX Stopped by: Edilberto Oscar MD ALLERGIES Allergies Allergen Reactions Oxycodone Dizziness, Nausea [...] for environmental allergies. PHYSICAL EXAM Blood pressure 110/60, pulse 64, height 175.3 cm (5' 9 ), weight 65.8 kg (145 lb), SpO2 97%. Body mass index is 21.41 kg/m??. Physical Exam Vitals reviewed. HENT: Head: [...] EKG 02/05/2022: Normal sinus rhythm. Normal EKG EKG 06/24/2023Normal sinus rhythm, nonspecific ST abnormality. ECG Echo June 2017: EF 60-65% with mild left atrial enlargement. No significant valve problems. Myocardial Perfusion study 07/24/2017: EF 75% without infarction or ischemia. MPI 07/02/[address] changes. Global left ventricular function is normal. Left ventricular ejection fraction is 70 %. Myocardial perfusion imaging is probably normal. Recommend follow up with dictating machine mechanic. Echocardiogram 06/30/2023 Normal left ventricular systolic function. No focal [...] regurgitation. Mild pulmonic regurgitation. Normal sinus rhythm. ASSESSMENT Diagnoses and all orders for this visit: PAF (paroxysmal atrial fibrillation) (CMS/HCC) (Primary) Remains in sinus rhythm and on anticoagulation Essential hypertension At goal Rheumatoid arthritis, involving unspecified site, unspecified rheumatoid factor presence (CMS/HCC) Stable Chronic anticoagulation No bleeding problems Chronic renal insufficiency, unspecified CKD stage: Followed by Dr. Gao Encounter for monitoring flecainide therapy PLAN/RECOMMENDATIONS She is stable. She should continue her current drug regimen without change including flecainide, metoprolol and Xarelto because of atrial fibrillation. I will see her back in 6 months or sooner as clinically indicated. Edilberto Oscar MD, [facility] documented in this encounter Plan of Treatment Not on file documented as of this encounter Visit Diagnoses Diagnosis Chronic anticoagulation- Primary Encounter for long-term (current) use of anticoagulants PAF (paroxysmal atrial fibrillation) ([facility]) (HCC) Atrial fibrillation Essential hypertension Unspecified essential hypertension documented in this encounter Discontinued Medications Medication Sig Discontinue Reason Start Date End Da te furosemide (LASIX) 20 mg tabletIndications:Edema , lower extremity Take one tablet in the am for the next 14 days. Call office if your swelling hasn't resolved. Therapy completed 11/22/2020 12/31/2023 documented as of this encounter Historical Medications * This list may reflect changes made after this encounter. cholecalciferol (VITAMIN D-3) 61875 unit capsule Take 1 capsule (10,000 Units total) by mouth daily montelukast (SINGULAIR) 10 mg tablet Take 1 tablet (10 mg total) by mouth every evening 10/19/2023 added in this encounter Care Teams Lime Vat Tender Relationship Specialty Start Date End Date Jason Isaacs MD PCP - General Internal Medicine 07/13/18 documented as of this encounter
--- OUTSIDE RECORDS SUMMARY | 2024-04-12 04:09 | XMS_ITS | Encounter Summary ---
Author Organization [facility] Address [address] [place] [address] Care Team Providers Care Service Attendant Cafeteria Name Role Phone Jason Isaacs MD Primary Care Provider [phone] Encounter Details Date Type Department Care Team (Late st Contact Info) Description 10/31/2020 Telephone [facility] Cardiology [address] [place] [address] Edilberto Oscar MD [address] [id number] Social History Tobacco Use Types Packs/Day Years Used Date Smoking Tobacco: Former Cigarettes Q uit: 07/13/1998 Smokeless Tobacco: Never Alcohol Use Standard Drinks/Week Comments Yes 2 (1 standard drink = 0.6 oz pur e alcohol) 2 beers a day Comments Unknown Sex and Gender Information Value Date Recorded Sex Assigned at Not on file 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 Vitals were as follows: BP: 110/64 Left arm, sitting Pulse: 74 Oxygen:99% Pt sent to ER per THANH Acevedo and Brittani Saldaña NP Will forward EKG and note to [facility]. documented in this encounter Plan of Treatment Not on file documented as of this encounter Visit Diagnoses Not on filedocumented in this encounter Care Teams Service Attendant Cafeteria Relationship Specialty Start Date End Date Jason Isaacs MD PCP - General Internal Medicine 07/13/18 documented as of this encounter
--- OUTSIDE RECORDS SUMMARY | 2024-04-12 04:09 | XMS_ITS | Encounter Summary ---
Author Organization [facility] Address [address] [place] [address] Care Team Providers Care Executive Administrator Name Role Phone Jason Isaacs MD Primary Care Provider [phone] Encounter Details Date Type Department Care Team (Late st Contact Info) Description 11/02/2020 Orders Only [facility] Cardiology [address] [place] [address] Al Friedman MD [address] [place] [address] Social History Tobacco Use Types Packs/Day Years Used Date Smoking Tobacco: Former Cigarettes Q uit: 07/13/1998 Smokeless Tobacco: Never Alcohol Use Standard Drinks/Week Comments Yes 2 (1 standard drink = 0.6 oz pur e alcohol) 2 beers a day Comments Unknown Sex and Gender Information Value Date Recorded Sex Assigned at Not on file 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 Gender Identity Not on file Sexual Orientation Not on file documented as of this encounter Plan of Treatment Not on file documented as of this encounter Procedures Procedure Name Priority Date/Time Associated Diagnosis Comments CARDIOLOGY DOCUMENT SCAN Routine 11/02/2020 documented in this encounter Results * SCAN - CARDIOLOGY (11/02/2020) Anatomical Region Laterality Modality Other Al Friedman MD CV CARDIAC SERVICES PROCEDURES Final Result documented in this encounter Visit Diagnoses Not on filedocumented in this encounter Care Teams Executive Administrator Relationship Specialty Start Date End Date Jason Isaacs MD PCP - General Internal Medicine 07/13/18 documented as of this encounter
--- OUTSIDE RECORDS SUMMARY | 2024-04-12 04:09 | XMS_ITS | Encounter Summary ---
Author Organization [facility] Address [address] [place] [address] Care Team Providers Care Risk Engineer Name Role Phone Jason Isaacs MD Primary Care Provider [phone] Reason for Visit * Reason Comments Atrial Fibrillation Pre-op Exam Encounter Details Date Type Department Care Team ([facility] st Contact Info) Description 10/10/2019 9:00 AM CDT Office Visit [facility] Cardiology [address] [place] [address] Cathie Brody NP [address] [place] [address] PAF (paroxysmal atrial fibrillation) (CMS/HCC) (Primary Dx); PSVT (paroxysmal supraventricular tachycardia) (CMS/HCC); Abnormal resting ECG findings; Chronic anticoagulation; Preoperative cardiovascular examination Social History Tobacco Use Types Packs/Day Years Used Date Smoking Tobacco: Former Cigarettes Q uit: 07/13/1998 Smokeless Tobacco: Never Alcohol Use Standard Drinks/Week Comments Yes 2 (1 standard drink = 0.6 oz pur e alcohol) 2 beers a day Comments Unknown Sex and Gender Information Value Date Recorded Sex Assigned at Not on file 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 Gender Identity Not on file Sexual Orientation Not on file documented as of this encounter Last Filed Vital Signs Vital Sign Reading Time Taken Comments Blood Pressure 136/78 10/10/2019 8:57 AM CDT Pulse 75 10/10/2019 8:57 AM CDT Temperature - - Respiratory Rate - - Oxygen Saturation 100% 10/10/2019 8:57 AM CDT Inhaled Oxygen Concentration - - Weight 62.1 kg (137 lb) 10/10/2019 8:57 AM CDT Height 175.3 cm (5' 9 ) 10/10/2019 8:57 AM CDT Body Mass Index 20.23 10/10/2019 8:57 AM CDT documented in this encounter Progress Notes * Cathie Brody NP - 10/10/2019 9:00 AM CDT Images from the original note were not included. [facility] Cardiology [address] [place] [address] Date of Visit: 10/10/2019 Patient ID: Chasidy Thomas [id number] Chief Complaint: Chasidy Thomas is a 74 y.o. female who is an established patient Dr. Oscar with a history of atrialfibrillation coming to the office for follow-up after stress test and Holter monitor done for preoperative evaluation. History of Present Illness: Chasidy Thomas is a 74 y.o. femalewith atrial fibrillation. I saw her [...] the addition of carvedilol Office visit with PR INTERN 10/10/2019: She called the office a few weeks ago with complaint of some chestheaviness and ???feeling funny. Her home blood pressure machine had given an irregular heart beat indication. Dr. Oscar advised a 7 day quality assurance monitor body and stress testing. Since the week she called the office, she has felt better and has not had any more of the symptoms. She has a right total knee replacement scheduled for next week and has been advised to hold her Xarelto 4 days prior. She has a question about the comment on her stress test regarding ???cannot r/o IMI. Records that I personally reviewed on the day of this visit include: (the interpretation is outlined in the HPI above) 07/25/[address] Oscar, 09/20/2019 quality assurance monitor body report, 09/29/2019 stress test report and the resting ECG. I have also reviewed: allergies, current medications, past family history, past medical history, past social history, past surgical history and problem list Review of Systems Constitution: Negative for diaphoresis, fever, malaise/fatigue, weight gain and weight loss. HENT: Negative for hearing loss. Eyes: Negative for visual disturbance. Cardiovascular: Negative for chest pain, claudication, dyspnea on exertion, leg swelling, orthopnea, palpitations, paroxysmal nocturnal dyspnea and syncope. Respiratory: Negative for cough, hemoptysis, shortness of breath, snoring and wheezing. Hematologic/Lymphatic: Bruises/bleeds easily. Skin: Negative for poor wound healing and rash. Musculoskeletal: Positive for joint pain. Negative for myalgias. Gastrointestinal: Negative for heartburn, nausea and vomiting. Genitourinary: Negative for hematuria. Neurological: Negative for dizziness, headaches and light-headedness. Psychiatric/Behavioral: Negative for depression. The patient is not nervous/anxious. Vital Signs: BP 136/78 (BP Location: Left arm, Patient Position: Sitting) Pulse 75 Ht 175.3 cm (5' 9 ) Wt 62.1 kg (137 lb) SpO2 100% BMI 20.23 kg/m?? Physical Exam Constitutional: She is oriented to person, place, and time. She appears well- developed and well-nourished. No distress. HENT: Head: Normocephalic and atraumatic. Nose: Nose normal. Wearing a mask Eyes: Pupils are equal, round, and reactive to light. Conjunctivae and EOM are normal. No scleral icterus. Neck: Normal range of motion. No JVD present. No tracheal deviation present. Cardiovascular: Normal rate, regular rhythm and normal heart sounds. No murmur heard. Pulmonary/Chest: Effort normal and breath sounds normal. No respiratory distress. Abdominal: Soft. Bowel sounds are normal. There is no abdominal tenderness. Musculoskeletal: General: No edema. Right knee: She exhibits decreased range of motion. Neurological: She is alert and oriented to person, place, and time. Skin: Skin is warm and dry. Psychiatric: She has a normal mood and affect. Allergies Allergen Reactions ??? Sulfasalazine Nausea only Current Outpatient Medications: ??? ALPRAZolam (XANAX) 0.5 mg tablet, , Disp: , Rfl: ??? ascorbic acid (ascorbic acid with trish hips) 500 mg tablet,chewable, , Disp: , Rfl: ??? atorvastatin (LIPITOR) 20 mg tablet, , Disp: , Rfl: ??? calcium citrate-vitamin D3 200 mg calcium -250 unit tablet, 1 tablet., Disp: , Rfl: ??? carvediloL (COREG) 3.125 mg tablet, Take 3.125 mg by mouth 2 (two) times a day with meals, Disp: , Rfl: ??? hydroCHLOROthiazide (HYDRODIURIL) 25 mg tablet, Take 25 mg by mouth daily, Disp: , Rfl: 2 ??? leflunomide (ARAVA) 10 mg tablet, , Disp: , Rfl: ??? lysine 500 mg tablet, 500 mg., Disp: , Rfl: ??? magnesium oxide (MAG-OX) 400 mg (241.3 mg elemental magnesium) tablet, Take 1 tablet by mouth 2(two) times a day, Disp: , Rfl: 99 ??? omeprazole (PriLOSEC) 40 mg capsule, Take 40 mg by mouth daily., Disp: , Rfl: ??? potassium 99 mg tablet, Take by mouth., Disp: , Rfl: ??? predniSONE (DELTASONE) 5 mg tablet, , Disp: , Rfl: ??? rivaroxaban (XARELTO) 15 mg tablet, Take 1 tablet (15 mg total) by mouth daily, Disp: 30 tablet, Rfl: 11 ??? spironolactone (ALDACTONE) 25 mg tablet, Take 50 mg by mouth daily, Disp: , Rfl: 0 ??? vitamin B complex capsule, Take 1 capsule by mouth daily, Disp: , Rfl: No results found for: POTASSIUM, BUNSER, CREATININE, CHOL, TRIG, LDL, LDLCALC, HDL Assessment: Diagnoses and all orders for this visit: PAF (paroxysmal atrial fibrillation) (CMS/HCC) (Primary) PSVT (paroxysmal supraventricular tachycardia) (CMS/HCC) Abnormal resting ECG findings Chronic anticoagulation Preoperative cardiovascular examination Plan/Recommendations: She has a history of paroxysmal atrial fibrillation and recently wore an extended Holter monitor which did not show any AFib but showed one 8 beat run of SVT. I explained SVT to her, what common triggers can be, and the possibility of a more prolonged episode of SVT for which she could try bearing down to break this if it would occur. Because she is feeling better and the monitor was relatively unremarkable, I advised her to remain on her carvedilol without any further workup. But notify us if more prolonged palpitations begin recurring. I explained the finding of ???cannot rule out inferior MA on her ECG. Her stress test was negativefor ischemia with no fixed or reversible defects on her perfusion images with normal LVEF. Therefore I reassured her the ECG finding is not concerning. We discussed holding her Xarelto before her knee surgery. With a joint replacement and the possibility of in her axial anesthesia, I think holding for 4 days would be reasonable to ensure there is noresidual anticoagulation. However, she should resume the Xarelto as soon as possible after the surgery. Keep the previously scheduled follow-up appointment with Dr. Oscar in December. Call us sooner with questions or concerns. TATYANA Noonan- Nurse Practitioner with [facility] This note is dictated and transcribed using [employer] Software. Handle Turner variancesmay occur. Despite proofreading, typographical errors may occur. documented in this encounter Plan of Treatment Not on file documented as of this encounter Visit Diagnoses Diagnosis PAF (paroxysmal atrial fibrillation) ([facility]/HCC) ([facility])- Primary Atrial fibrillation PSVT (paroxysmal supraventricular tachycardia) ([facility]) Paroxysmal supraventricular tachycardia Abnormal resting ECG findings Chronic anticoagulation Encounter for long-term (current) use of anticoagulants Preoperative cardiovascular examination Pre-operative cardiovascular examination documented in this encounter Care Teams Risk Engineer Relationship Specialty Start Date End Date Jason Isaacs MD PCP - General Internal Medicine 07/13/18 documented as of this encounter
--- OUTSIDE RECORDS SUMMARY | 2024-04-12 04:09 | XMS_ITS | Encounter Summary ---
Author Organization [facility] Address [address] [place] [address] Care Team Providers Care Health Professor Name Role Phone Jason Isaacs MD Primary Care Provider [phone] Encounter Details Date Type Department Care Team ([facility] st Contact Info) Description 06/13/2020 Telephone [facility] Cardiology [address] [place] [address] Cathie Brody NP [address] [place] [address] Social History Tobacco Use Types Packs/Day Years Used Date Smoking Tobacco: Former Cigarettes Q uit: 07/13/1998 Smokeless Tobacco: Never Alcohol Use Standard Drinks/Week Comments Yes 2 (1 standard drink = 0.6 oz pur e alcohol) 2 beers a day Comments Unknown Sex and Gender Information Value Date Recorded Sex Assigned at Not on file Legal Sex Female 12:00 AM PR SPECIALIST Gender Identity Not on file Sexual Orientation Not on file documented as of this encounter Miscellaneous Notes * Telephone Encounter - Namrata Mane RN - 06/13/2020 9:50 AM PR SPECIALIST Left detailed message for patient on regarding results. Included date/time of next appointment and instructed to contact the office w/any questions or to review. ----- Message from Cathie Brody NP sent at 06/12/2020 2:52 PM PR SPECIALIST ----- Please call her regarding Echo result: it showed mild abnormalities but these do not explain the fatigue she is having. I'm glad PCP is sending her to a auto rental supervisor. LV systolic function (heart's ability to squeeze / strength of heart): normal LV diastolic function (heart's ability to relax / stiffness of heart muscle): mildly abnormal, thisis partly due to her history of HTN and partly due to aging. Valves: mild leakage at mitral valve, which would not cause her any symptoms Other: mild pulmonary hypertension, meaning high blood pressure in the lungs. Keep June appt with Dr. Oscar Thank you. SPECIALIST SPECIALIST documented in this encounter Plan of Treatment Not on file documented as of this encounter Visit Diagnoses Not on filedocumented in this encounter Care Teams Health Professor Relationship Specialty Start Date End Date Jason Isaacs MD PCP - General Internal Medicine 07/13/18 documented as of this encounter
--- OUTSIDE RECORDS SUMMARY | 2024-04-12 04:09 | XMS_ITS | Encounter Summary ---
Author Organization [facility] Group Address [address] [place] [address] Care Team Providers Care Wharfmaster Name Role Phone Jason Isaacs MD Primary Care Provider [phone] Encounter Details Date Type Department Care Team ([facility] st Contact Info) Description 11/22/2020 Telephone [facility] Medical [facility] Cardiology [address], [place] [address] Edilberto Oscar MD [address] [place] [address] [address] [place] [address] Social History Tobacco Use Types Packs/Day Years Used Date Smoking Tobacco: Former Cigarettes Q uit: 07/13/1998 Smokeless Tobacco: Never Alcohol Use Standard Drinks/Week Comments Yes 2 (1 standard drink = 0.6 oz pur e alcohol) 2 beers a day Comments Unknown Sex and Gender Information Value Date Recorded Sex Assigned at Not on file Legal Sex Female 12: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 Call office if your swelling hasn't resolved. 30 tablet 11/22/2020 4 documented in this encounter Miscellaneous Notes * Addendum Note - Samson Ferrer RN - 11/22/2020 5:24 PM CDTAddended by: SAMSON FERRER on: 11/22/2020 05:24 PM Modules accepted: Orders * Telephone Encounter - Samson Ferrer RN - 11/22/2020 5:23 PM CDT Called pt and reviewed message from CT. Pt verbalized understanding, rx sent to pharm. * Telephone Encounter - Cathie Brody NP - 11/22/2020 5:09 PM CDT Let us give her furosemide 20 mg daily for another 14 days. Be sure to eat a little extra potassiumrich food while taking the furosemide. Then she can resume her hydrochlorothiazide after 14 days. Call us again if the swelling has not resolved by then. Note to self, I believe spironolactone was discontinued when she was recently in the hospital. We may need to restart this in the future. * Telephone Encounter - Samson Ferrer RN - 11/22/2020 4:34 PM CDT Pt called to report that her swelling is a little better but still not gone in her legs. Pt was instructed to take up to 7 days worth of furosemide and then to call our office if her swelling remained for further instructions. Pt said if we dont get back to her tonight to call her cell in the [phone] Please advise, thank you! * Telephone Encounter - Angélica Bañuelos - 11/22/2020 3:58 PM CDT Patient was given instructions to take Lasix for the swelling in her legs, she has taken 7 pills already and there is still swelling , she wants to know if she should start back on the HCTZ. documented in this encounter Plan of Treatment Not on file documented as of this encounter Visit Diagnoses Diagnosis Edema, lower extremity documented in this encounter Discontinued Medications Medication Sig Discontinue Reason Start Date End Da te furosemide (LASIX) 20 mg tabletIndications:Edema, lower extremity Take one tablet daily every morning for up to 7 days. Call the office before taking longer than 7 days. Reorder 11/15/2020 11/22/2020 documented as of this encounter Care Teams Wharfmaster Relationship Specialty Start Date End Date Jason Isaacs MD PCP - General Internal Medicine 07/13/18 documented as of this encounter
--- OUTSIDE RECORDS SUMMARY | 2024-04-12 04:09 | XMS_ITS | Encounter Summary ---
Author Organization [facility] Healthcare Address [address] [place] [address] Care Team Providers Care Stake Driver Name Role Phone Jason Isaacs MD Primary Care Provider [phone] Reason for Referral * Diagnostic Imaging (Routine) - Closed Specialty Diagnoses / Procedures Referred By Contac t Referred To Contact Cardiology Diagnoses PAF (paroxysmal atrial fibrillation) (CMS/HCC) (HCC) SOB (shortness of breath) Procedures NM MPI SPECT (Rest and/or Stress) Multiple Studies Jeane Gill MD [address] [address] Phone: tel: fax: Referral ID Status Reason Start Date Expiration Date Visits Re quested Visits Authorized [id number] Closed 06/24/2023 07/23/2024 1 1 RPRISE PROJECT MANAGER * Cardiology (Routine) - Closed Specialty Diagnoses / Procedures [facility] To Contact Diagnoses Essential hypertension SOB (shortness of breath) Procedures Transthoracic Echo (TTE) Complete W Doppler/CF Jeane Gill MD [address] [place] [address] Phone: tel: fax: [facility] Referral ID Status Reason Start Date Expiration Date Visits Re quested Visits Authorized [id number] Closed 06/24/2023 07/23/2024 1 1 RPRISE PROJECT MANAGER Reason for Visit * Reason Comments Atrial Fibrillation Hypertension 6 mo f/u Encounter Details Date Type Department Care Team (Latest Contact Info) Description 06/24/2023 8:30 AM ENTERPRISE PROJECT MANAGER Office Visit [facility] Cardiology [address] [place] [address] Jeane Gill MD [address] [address] Chronic anticoagulation (Primary Dx); PAF (paroxysmal atrial fibrillation) (CMS/HCC) (HCC); Encounter for monitoring flecainide therapy; Essential hypertension; SOB (shortness of breath) Social [...] on file Legal Sex Female 12:00 AM ENTERPRISE PROJECT MANAGER Gender Identity Not on file Sexual Orientation Not on file documented as of this encounter Last Filed Vital Signs Vital Sign Reading Time Taken Comments Blood Pressure 136/68 06/24/2023 9:12 AM ENTERPRISE PROJECT MANAGER Pulse 72 06/24/2023 8:51 AM ENTERPRISE PROJECT MANAGER Temperature - - Respiratory Rate - - Oxygen Saturation 98% 06/24/2023 8:51 AM ENTERPRISE PROJECT MANAGER Inhaled Oxygen Concentration - - Weight 67.6 kg (149 lb) 06/24/2023 8:51 AM ENTERPRISE PROJECT MANAGER Height 175.3 cm (5' 9 ) 06/24/2023 8:51 AM ENTERPRISE PROJECT MANAGER Body Mass Index 22 06/24/2023 8:51 AM ENTERPRISE PROJECT MANAGER documented in this encounter Progress Notes * Jeane Gill MD - 06/24/2023 8:30 AM CST Images from the original note were not included. [facility] DATE OF VISIT: 06/24/2023 CHIEF COMPLAINT Chief Complaint Patient presents with Atrial Fibrillation Hypertension 6 mo f/u HPI Chasidy Thomas is a 77 y.o. female with [...] the addition of carvedilol Office visit with VISITOR SERVICES SPECIALIST 10/10/2019: She called the office a few weeks ago with complaint of some chestheaviness and ???feeling funny. Her home blood pressure machine had given an irregular heart beat indication. Dr. Gill advised a 7 day electronic device monitor and stress testing. Since the week [...] as of late also. No pal pitations MEDICAL HISTORY History reviewed. Was PAF, rheumatoid [...] history. MEDICATIONS Medication List Accurate as of June 24, 2023 9:04 AM. If you have any questions, ask your nurse or doctor. CONTINUE taking these medications ALPRAZolam 0.5 mg tablet Commonly known as: XANAX ascorbic acid 500 mg tablet,chewable Commonly known as: VITAMIN C atorvastatin 20 mg tablet Commonly known as: LIPITOR calcium citrate-vitamin D3 200 mg-6.25 mcg (250 unit) tablet ferrous sulfate 325 mg (65 mg of [...] 1 TABLET BY MOUTH TWICE A DAY omeprazole 40 mg capsule Commonly known as: [...] for environmental allergies. PHYSICAL EXAM Blood pressure 144/80, pulse 72, height 175.3 cm (5' 9 ), weight 67.6 kg (149 lb), SpO2 98%. Body mass index is 22 kg/m??. Physical Exam Vitals reviewed. HENT: Head: [...] Dr. Gao Encounter for monitoring flecainide therapy Shortness of breath New PLAN/RECOMMENDATIONS EKG today because of chronic flecainide use Lexiscan myocardial perfusion study for ischemic evaluation given her shortness of breath history 2D echocardiogram Doppler because of edema shortness of breath and PAF She is stable. She should continue her current drug regimen without change including flecainide, metoprolol and Xarelto because of atrial fibrillation. I will see her back in 6 months or sooner as clinically indicated. Jeane Gill MD, [facility] RPRISE PROJECT MANAGER documented in this encounter Miscellaneous Notes * Addendum Note - Mame Escobar MA - 06/24/2023 8:30 AM CSTAddended by: MAME ESCOBAR on: 06/24/2023 09:34 AM Modules accepted: Orders RPRISE PROJECT MANAGER documented in this encounter Plan of Treatment Not on file documented as of this encounter Procedures Procedure Name Priority Date/Time Associated Diagnosis Comments ECG 12-LEAD Routine 06/24/2023 PAF (paroxysmal atrial fibrillation) (CMS/HCC) ([facility]) Encounter for monitoring flecainide therapy Essential hypertension SOB (shortness of breath) documented in this encounter Results * NM MPI SPECT (Rest and/or Stress) Multiple Studies (07/01/2023 9:24 AM ENTERPRISE PROJECT MANAGER) Anatomical Region Laterality Modality Body N/A Nuclear Medicine 07/01/2023 8:26 AM ENTERPRISE PROJECT MANAGER Narrative 07/02/2023 9:01 AM ENTERPRISE PROJECT MANAGER [facility] Cardiology [address], [place] [address] [address], [place] [address] P:[phone] P:[phone] MPI Imaging Report Patient Name: CHASIDY THOMAS K : 1945 Study Date: 07/01/2023 8:26:21 AM Gender: F Tech: [facility] Location: [facility] Provider: JEANE GILL ?Height(Cm): 175.3 BSA: ??Weight(Kg): 67.6 BMI: 22 ?Order Provider: JEANE GILL - PHYSICIAN: Referring Physician: Dr. Isaacs. HCG Physician: Chema Gill M.D. Interpreting Physician: Shaggy Jackson M.D. Stress Supervision: Shaggy Jackson M.D. PROCEDURES: Myocardial perfusion imaging with Tc99M Sestamibi SPECT at rest and stress post regadenoson (Lexiscan) infusion. INDICATIONS: Atrial Fibrillation, Hypertension, Shortness Of Breath, Family Hx CAD, High Cholesterol, and Former Smoker. FINDINGS: Procedural Findings: One day rest/stress was used. Tc99m Sestamibi injected IV at rest was 10.4 millicuries. 33.0 millicuries of Tc99M Sestamibi injected IV during Lexiscan stress. Lexiscan 0.4mg administered IV over 10 seconds. Patient had no symptoms during stress test. Baseline heart rate was 68 BPM. Maximum Heart Rate Achieved was: 98 BPM. Baseline blood pressure was 158/80 mmHg. Post Stress Blood Pressure was 152/86 mmHg. Termination: Protocol complete. Resting ECG: Sinus rhythm. Post ECG: No diagnostic ST changes. Arrhythmia: No arrhythmias seen. Perfusion Findings: Probably normal perfusion imaging. No definite fixed or reversible defects. Technical quality of study is excellent. Prone imaging was not performed. Left ventricle cavity size at rest is normal. Left ventricle cavity size with stress is unchanged. A TID of 0.90 was automatically calculated. defect 1: Size is small. Severity is mild. Location of defect is in the basal anterior segment, basal anteroseptal segment, mid anterior segment and mid anteroseptal segment. Reversibility is not present, defect is fixed although slightly improved at stress compared to rest. Type of defect is most likely attenuation artifact. Artifact noted from breast attenuation. LV Function: Global left ventricular function is normal. Left ventricular ejection fraction is 70 %. CONCLUSIONS: No diagnostic ST changes. Global left ventricular function is normal. Left ventricular ejection fraction is 70 %. Myocardial perfusion imaging is probably normal. Recommend follow up with vulcanizing press operator. Electronically Signed By: Shaggy Jackson MD 2023-07-02 09:00:48 ENTERPRISE PROJECT MANAGER Electronically Signed By: Shagyg Jackson MD 2023-07-02 09:00:48 ENTERPRISE PROJECT MANAGER Procedure Note Maykel Jackson MD - 07/02/2023 [facility] Cardiology [address], [place] [address] [address] [place], [place] [address] P:[phone] P:[phone] MPI Imaging Report Patient Name: CHASIDY THOMAS K : 1945 Study Date: 07/01/2023 8:26:21 AM Gender: F Tech: [facility] Location: [facility] Provider: JEANE GILL Height(Cm): 175.3 BSA: Weight(Kg): 67.6 BMI: 22 Order Provider: JEANE GILL - PHYSICIAN: Referring Physician: Dr. Isaacs. HCG Physician: Chema Gill M.D.Interpreting Physician: Shaggy Jackson M.D. Stress Supervision: Shaggy Jackson M.D. PROCEDURES: Myocardial perfusion imaging with Tc99M Sestamibi SPECT at rest and stresspost regadenoson (Lexiscan) infusion. INDICATIONS: Atrial Fibrillation, Hypertension, Shortness Of Breath, Family Hx CAD,High Cholesterol, and Former Smoker. FINDINGS: Procedural Findings: One day rest/stress was used. Tc99m Sestamibi injected IV at rest was 10.4millicuries. 33.0 millicuries of Tc99M Sestamibi injected IV during Lexiscan stress.Lexiscan 0.4mg administered IV over 10 seconds. Patient had no symptoms during stresstest. Baseline heart rate was 68 BPM. Maximum Heart Rate Achieved was: 98 BPM. Baselineblood pressure was 158/80 mmHg. Post Stress Blood Pressure was 152/86 mmHg. Termination: Protocol complete. Resting ECG: Sinus rhythm. Post ECG: No diagnostic ST changes. Arrhythmia: No arrhythmias seen. Perfusion Findings: Probably normal perfusion imaging. No definite fixed or reversibledefects. Technical quality of study is excellent. Prone imaging was not performed. Leftventricle cavity size at rest is normal. Left ventricle cavity size with stress isunchanged. A TID of 0.90 was automatically calculated. defect 1: Size is small. Severity is mild. Location of defect is in the basalanterior segment, basal anteroseptal segment, mid anterior segment and mid anteroseptalsegment. Reversibility is not present, defect is fixed although slightly improvedat stress compared to rest. Type of defect is most likely attenuation artifact.Artifact noted from breast attenuation. LV Function: Global left ventricular function is normal. Left ventricular ejectionfraction is 70 %. CONCLUSIONS: No diagnostic ST changes. Global left ventricular function is normal. Left ventricular ejectionfraction is 70 %. Myocardial perfusion imaging is probably normal. Recommend follow up with vulcanizing press operator. Electronically Signed By: Shaggy Jackson MD 2023-07-02 09:00:48 ENTERPRISE PROJECT MANAGER Electronically Signed By: Shaggy Jackson MD 2023-07-02 09:00:48 ENTERPRISE PROJECT MANAGER Jeane Gill MD [facility] NM PROCEDURES Final R esult * TRANSTHORACIC ECHO (TTE) COMPLETE W DOPPLER/CF WO CONTRAST (06/30/2023 1:06 PM ENTERPRISE PROJECT MANAGER) Anatomical Region Laterality Modality Ultrasound 06/30/2023 12:3 0 PM ENTERPRISE PROJECT MANAGER Narrative 06/30/2023 4:00 PM ENTERPRISE PROJECT MANAGER [facility] Cardiology [address], [place] [address] P:[phone] P:[phone] Echocardiographic Report Patient Name: CHASIDY THOMAS K : 04-1946 Study Date: 06/30/2023 12:30:46 PM Gender: F Tech: Location: W Ref Provider: JEANE GILL ?Height(Cm): 175 BSA: [...] FINDINGS: Interpretation Site: Exam was interpreted at [facility]. Left Ventricle: Normal left ventricular systolic function. [...] Signed By: Jeane Gill MD 2023-06-30 16:00:40 ENTERPRISE PROJECT MANAGER Procedure Note Jeane Gill MD - 06/30/2023 [facility] Cardiology [address], [address], [place] [address] P:[phone] P:[phone] Echocardiographic Report Patient Name: CHASIDY THOMAS K [...] FINDINGS: Interpretation Site: Exam was interpreted at [facility]. Left Ventricle: Normal left ventricular systolic function. [...] Signed By: Jeane Gill MD 2023-06-30 16:00:40 ENTERPRISE PROJECT MANAGER Jeane Gill MD CV ECHO PROCEDURES Final Result * ECG 12 lead (06/24/2023) us Jeane Gill MD ECG ORDERABLES Final Res ult documented in this encounter Visit Diagnoses Diagnosis Chronic anticoagulation- Primary Encounter for long-term (current) use of anticoagulants PAF (paroxysmal atrial fibrillation) ([facility]) ([facility]) Atrial fibrillation Encounter for monitoring flecainide therapy Essential hypertension Unspecified essential hypertension SOB (shortness of breath) Shortness of breath Essential hypertension Unspecified essential hypertension SOB (shortness of breath) Shortness of breath PAF (paroxysmal atrial fibrillation) (CMS/HCC) (HCC) Atrial fibrillation SOB (shortness of breath) Shortness of breath documented in this encounter Care Teams Stake Driver Relationship Specialty Start Date End Date Jason Isaacs MD PCP - General Internal Medicine 07/13/18 documented as of this encounter
--- OUTSIDE RECORDS SUMMARY | 2024-04-12 04:09 | XMS_ITS | Encounter Summary ---
Author Organization [facility] Medical Group Address [address] [place] [address] Care Team Providers Care Textile Bag Sewer Name Role Phone Jason Isaacs MD Primary Care Provider [phone] Encounter Details Date Type Department Care Team (Late st Contact Info) Description 09/28/2020 Telephone [facility] Medical [facility] Cardiology [address], [place] [address] Edilberto Oscar MD [address] [place] [address] [address] [place] [address] Social History Tobacco Use Types Packs/Day Years Used Date Smoking Tobacco: Former Cigarettes Q uit: 07/13/1998 Smokeless Tobacco: Never Alcohol Use Standard Drinks/Week Comments Yes 2 (1 standard drink = 0.6 oz pur e alcohol) 2 beers a day Comments Unknown Sex and Gender Information Value Date Recorded Sex Assigned at Not on file Legal Sex Female 12: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 Bp last night was 115/103 HR 150, This morning while on the phone I hasd Patient take BP 120/97 HR 145. Patient reportsSOB at rest, left sided Chest pain, and usual fatigue. No other symptoms at this time. Denies feeling lightheaded, dizzy, or confusion. Patient stated she almost went to the ER last night r/t HR 165 and overall feeling strange. Patient has a hx of Afib with RVR June 2019 but has been in SR since. Patient has not missed a dose of Xarelto. Patient has decided to go to [facility] and have her drive her. I called [facility] and gave report to Maru LAW. Faxed last OV and any recent testing we've had in the last year. Forwarding to [facility] as an FYI * Telephone Encounter - Angélica Bañuelos - 09/28/2020 9:50 AM CDT Patient started having a fast heart rate at 150 and increased blood pressures at 115/103 she did say her home machine showed abnormal heart rate. Patient does have Afib. documented in this encounter Plan of Treatment Not on file documented as of this encounter Visit Diagnoses Not on filedocumented in this encounter Care Teams Textile Bag Sewer Relationship Specialty Start Date End Date Jason Isaacs MD PCP - General Internal Medicine 07/13/18 documented as of this encounter
--- OUTSIDE RECORDS SUMMARY | 2024-04-12 04:09 | XMS_ITS | Encounter Summary ---
Author Organization [facility] Address [address] [place] [address] Care Team Providers Care Building Service Worker Name Role Phone Jason Isaacs MD Primary Care Provider [phone] Reason for Visit * Reason Comments Follow-up 6 mo f/u Atrial Fibrillation Encounter Details Date Type Department Care Team ([facility] st Contact Info) Description 02/05/2022 9:45 AM CDT Office Visit [facility] Cardiology [address] [place] [address] Edilberto Oscar MD [facility] [place] [id number] Encounter for monitoring flecainide therapy (Primary Dx); Chronic anticoagulation; Essential hypertension; PAF (paroxysmal atrial fibrillation) (CMS/HCC) (HCC) Social History Tobacco Use Types Packs/Day Years [...] on file Legal Sex Female 12:00 AM PROFESSOR OF PRACTICE Gender Identity Not on file Sexual Orientation Not on file documented as of this encounter Last Filed Vital Signs Vital Sign Reading Time Taken Comments Blood Pressure 118/70 02/05/2022 9:31 AM CDT Pulse 71 02/05/2022 9:31 AM CDT Temperature - - Respiratory Rate - - Oxygen Saturation 98% 02/05/2022 9:31 AM CDT Inhaled Oxygen Concentration - - Weight 70.6 kg (155 lb 9.6 oz) 02/05/2022 9:31 A M CDT Height 175.3 cm (5' 9 ) 02/05/2022 9:31 AM CDT Body Mass Index 22.98 02/05/2022 9:31 AM CDT documented in this encounter Progress Notes * Edilberto Oscar MD - 02/05/2022 9:45 AM CDT Images from the original note were not included. [facility] DATE OF VISIT: 08/01/2021 CHIEF COMPLAINT Chief Complaint Patient presents with Atrial Fibrillation Hypertension 6 mo f/u HPI Chasidy Thomas is a 75 y.o. female with atrial fibrillation. I saw [...] the addition of carvedilol Office visit with TAPE EDITOR 10/10/2019: She called the office a few weeks ago with complaint of some chestheaviness and ???feeling funny. Her home blood pressure machine had given an irregular heart beat indication. Dr. Oscar advised a 7 day lay out carpenter and stress testing. Since the week she [...] orthopnea, edema or palpitations. No bleeding problems MEDICAL HISTORY History reviewed. Was PAF, rheumatoid [...] file. MEDICATIONS Medication List Accurate as of August 01, 2021 10:07 AM. If you have any questions, ask [...] 50 mg tablet Commonly known as: TAMBOCOR Take 1 tablet (50 mg total) by mouth 2 (two) times a day furosemide 20 mg tablet Commonly known as: LASIX Take one tablet in the am for the next 14 days. Call office if your swelling hasn't resolved. leflunomide 10 mg tablet Commonly known as: ARAVA magnesium oxide 400 mg (241.3 mg elemental magnesium) tablet Commonly known as: MAG-OX metoprolol XL 25 mg extended release tablet Commonly known as: TOPROL-XL Take 1 tablet (25 mg total) by mouth 2 (two) times a day omeprazole 40 mg capsule Commonly known as: PriLOSEC predniSONE 5 mg tablet Commonly known as: DELTASONE spironolactone 25 mg tablet Commonly known as: ALDACTONE Xarelto 15 mg tablet Generic drug: rivaroxaban TAKE 1 TABLET BY MOUTH EVERY DAY ALLERGIES Allergies Allergen Reactions Oxycodone Dizziness, Nausea only, Hypotension and Other (See comments) Sulfadiazine Nausea And Vomiting REVIEW OF SYSTEMS Review of Systems Constitutional: Negative for malaise/fatigue, weight gain and weight loss. HENT: [...] allergies. PHYSICAL EXAM Blood pressure 120/72, pulse 74, height 175.3 cm (5' 9 ), weight 71.2 kg (157 lb), SpO2 97 %. Body mass index is 23.18 kg/m??. Physical Exam Vitals reviewed. HENT: Head: [...] Gao Encounter for monitoring flecainide therapy PLAN/RECOMMENDATIONS EKG today because of flecainide use She is stable. She should continue her current drug regimen without change including flecainide, metoprolol and Xarelto. I will see her back in 6 months or sooner as clinically indicated. Edilberto Oscra MD, [facility] documented in this encounter Miscellaneous Notes * Addendum Note - Yue Mendoza MA - 02/05/2022 9:45 AM CDTAddended by: YUE MENDOZA on: 02/06/2022 02:57 PM Modules accepted: Orders documented in this encounter Plan of Treatment Not on file documented as of this encounter Procedures Procedure Name Priority Date/Time Associated Diagnosis Comments ECG 12-LEAD Routine 02/05/2022 PAF (paroxysmal atrial fibrillation) (CMS/HCC) (HCC) documented in this encounter Results * ECG 12 lead (02/05/2022) us Edilberto Oscar MD ECG ORDERABLES Final Res ult documented in this encounter Visit Diagnoses Diagnosis Encounter for monitoring flecainide therapy- Primary Chronic anticoagulation Encounter for long-term (current) use of anticoagulants Essential hypertension Unspecified essential hypertension PAF (paroxysmal atrial fibrillation) (CMS/HCC) (HCC) Atrial fibrillation documented in this encounter Historical Medications * This list may reflect changes made after this encounter. ciprofloxacin (CIPRO) 250 mg tablet Take 1 tablet (250 mg total) by mouth every 12 (twelve) hours 01/31/2022 12/17/2022 metroNIDAZOLE (FLAGYL) 500 mg tablet Take 1 tablet (500 mg total) by mouth 3 (three) times a day 01/31/2022 12/17/2022 added in this encounter Care Teams Building Service Worker Relationship Specialty Start Date End Date Jason Isaacs MD PCP - General Internal Medicine 07/13/18 documented as of this encounter
--- OUTSIDE RECORDS SUMMARY | 2024-04-12 04:09 | XMS_ITS | Encounter Summary ---
Author Organization [facility] Address [address] [place] [address] Care Team Providers Care Drywall Taper Helper Name Role Phone Jason Isaacs MD Primary Care Provider [phone] Reason for Visit * Reason Comments Atrial Fibrillation 6 mo f/u Encounter Details Date Type Department Care Team ([facility] st Contact Info) Description 01/24/2021 10:30 AM CDT Office Visit [facility] Cardiology [address] [facility] [place] [address] Edilberto Oscar MD [facility] [place] [id number] Chronic renal impairment, unspecified CKD stage (Primary Dx); Chronic anticoagulation; Rheumatoid arthritis, involving unspecified site, unspecified whether rheumatoid factor present (HCC); Essential hypertension; PAF (paroxysmal atrial fibrillation) (CMS/HCC) (HCC); Atrial fibrillation, unspecified type (HCC) Social History Tobacco Use Types Packs/Day Years Used Date Smoking Tobacco: Former Cigarettes Q uit: 07/13/1998 Smokeless Tobacco: Never Alcohol Use Standard Drinks/Week Comments Yes 2 (1 standard drink = 0.6 oz pur e alcohol) 2 beers a day Comments Unknown Sex and Gender Information Value Date Recorded Sex Assigned at Not on file Legal Sex Female 12:00 AM BIOMEDICAL MANAGER Gender Identity Not on file Sexual Orientation Not on file documented as of this encounter Last Filed Vital Signs Vital Sign Reading Time Taken Comments Blood Pressure 120/62 01/24/2021 10:22 AM CDT Pulse 68 01/24/2021 10:22 AM CDT Temperature - - Respiratory Rate - - Oxygen Saturation 97% 01/24/2021 10:22 AM CDT Inhaled Oxygen Concentration - - Weight 70.3 kg (155 lb) 01/24/2021 10:22 AM CDT Height 175.3 cm (5' 9 ) 01/24/2021 10:22 AM CDT Body Mass Index 22.89 01/24/2021 10:22 AM CDT documented in this encounter Ordered Prescriptions Prescription Sig Dispense Quantity Refills Last Filled Start Date End Date metoprolol XL (TOPROL-XL) 25 mg extended release tabletIndications: Atrial fibrillation, unspecified type (HCC) Take 1 tablet (25 mg total) by mouth 2 (two) times a day 180 tablet 3 01/24/2021 01/16/2022 flecainide (TAMBOCOR) 50 mg tablet Take 1 tablet (50 mg total) by mouth 2 (two) times a day 180 tablet 3 01/24/2021 11/20/2021 documented in this encounter Progress Notes * Edilberto Oscar MD - 01/24/2021 10:30 AM CDT [facility] DATE OF VISIT: 01/24/2021 CHIEF COMPLAINT Chief Complaint Patient presents with ??? Atrial Fibrillation 6 mo f/u HPI Chasidy Thomas is [...] addition of carvedilol Office visit with DIRECTOR AUTO 10/10/2019: She called the office a few weeks ago with complaint of some chestheaviness and ???feeling funny. Her home blood pressure machine had given an irregular heart beat indication. Dr. Oscar advised a 7 day it security project manager and stress testing. Since the week she [...] controlled by compression stockings to this point. MEDICAL HISTORY History reviewed. Was PAF, rheumatoid [...] Home Medications ALPRAZOLAM (XANAX) 0.5 MG TABLET Take 0.5 mg by mouth nightly ASCORBIC ACID (ASCORBIC ACID WITH RUPESH HIPS) 500 MG TABLET,CHEWABLE ATORVASTATIN (LIPITOR) 20 MG TABLET Take 20 mg by mouth daily CALCIUM CITRATE-VITAMIN D3 200 MG CALCIUM -250 UNIT TABLET 1 tablet. FERROUS SULFATE 325 MG (65 MG OF ELEMENTAL IRON) TABLET Take 65 mg of elemental iron by mouth 3 (three) times a day with meals FLECAINIDE (TAMBOCOR) 50 MG TABLET TAKE 1 TABLET BY MOUTH EVERY 12 HOURS FOR 30 DAYS FUROSEMIDE (LASIX) 20 MG TABLET Take one tablet in the am for the next 14 days. Call office if yourswelling hasn't resolved. LEFLUNOMIDE (ARAVA) 10 MG TABLET Take 10 mg by mouth daily MAGNESIUM OXIDE (MAG-OX) 400 MG (241.3 MG ELEMENTAL MAGNESIUM) TABLET Take 1 tablet by mouth 2 (two) times a day METOPROLOL XL (TOPROL-XL) 25 MG EXTENDED RELEASE TABLET Take 1 tablet (25 mg total) by mouth 2 (two) times a day OMEPRAZOLE (PRILOSEC) 40 MG CAPSULE Take 40 mg by mouth daily. PREDNISONE (DELTASONE) 5 MG TABLET 5 mg alt with 10 mg every other day SPIRONOLACTONE (ALDACTONE) 25 MG TABLET XARELTO 15 MG TABLET TAKE 1 TABLET BY MOUTH EVERY DAY ALLERGIES Allergies Allergen Reactions ??? Oxycodone Dizziness, Nausea only and Hypotension ??? Sulfadiazine Nausea And Vomiting REVIEW OF SYSTEMS Review of Systems Constitutional: Positive for malaise/fatigue. Negative for weight gain and weight loss. HENT: Negative for hearing loss. Eyes: Negative for blurred vision and visual disturbance. Cardiovascular: Negative for chest pain, claudication, dyspnea on exertion, irregular heartbeat, leg swelling, near-syncope, orthopnea, palpitations, paroxysmal nocturnal dyspnea and syncope. Respiratory: Positive for shortness of breath. Negative for cough, hemoptysis, snoring, sputum production and wheezing. Endocrine: Negative for cold intolerance, heat intolerance and polyuria. Hematologic/Lymphatic: Bruises/bleeds easily. Skin: Negative for color change and rash. Musculoskeletal: Negative for falls, joint pain, joint swelling and myalgias. Gastrointestinal: Negative for abdominal pain, heartburn, nausea and vomiting. Genitourinary: Negative for dysuria. Neurological: Negative for dizziness, focal weakness, headaches, light- headedness, numbness and weakness. Psychiatric/Behavioral: Negative for depression. The patient is not nervous/anxious. Allergic/Immunologic: Negative for environmental allergies. PHYSICAL EXAM Blood pressure 120/62, pulse 68, height 175.3 cm (5' 9 ), weight 70.3 kg (155 lb), SpO2 97 %. Body mass index is 22.89 kg/m??. Physical Exam Vitals reviewed. HENT: Head: [...] sooner as clinically indicated Edilberto Oscar MD, [facility] documented in this encounter Miscellaneous Notes * Addendum Note - Mame Escobar MA - 01/24/2021 10:30 AM CDTAddended by: MAME ESCOBAR on: 01/24/2021 11:01 AM Modules accepted: Orders documented in this encounter Plan of Treatment Not on file documented as of this encounter Visit Diagnoses Diagnosis Chronic renal impairment, unspecified CKD stage- Primary Chronic anticoagulation Encounter for long-term (current) use of anticoagulants Rheumatoid arthritis, involving unspecified site, unspecified whether rheumatoid factor present (HCC) Essential hypertension Unspecified essential hypertension PAF (paroxysmal atrial fibrillation) (CMS/HCC) (HCC) Atrial fibrillation Atrial fibrillation, unspecified type (HCC) documented in this encounter Discontinued Medications Medication Sig Discontinue Reason Start Date End Da te hydroCHLOROthiazide (HYDRODIURIL) 25 mg tabletIndications:Edema, lower extremity Take 1 tablet (25 mg total) by mouth daily Alternate therapy 11/23/2020 01/24/2021 flecainide (TAMBOCOR) 50 mg tablet TAKE 1 TABLET BY MOUTH EVERY 12 HOURS FOR 30 DAYS Reorder 11/02/2020 01/24/2021 metoprolol XL (TOPROL-XL) 25 mg extended release tabletIndications:Atrial fibrillation, unspecified type (HCC) Take 1 tablet (25 mg total) by mouth 2 (two) times a day Reorder 11/15/2020 01/24/2021 documented as of this encounter Historical Medications * This list may reflect changes made after this encounter. Medication Sig Dispense Quantity Refills Last Filled Start D ate End Date spironolactone (ALDACTONE) 25 mg tablet 01/19/2021 added in this encounter Care Teams Drywall Taper Helper Relationship Specialty Start Date End Date Jason Isaacs MD PCP - General Internal Medicine 07/13/18 documented as of this encounter
--- OUTSIDE RECORDS SUMMARY | 2024-04-12 04:09 | XMS_ITS | Encounter Summary ---
Author Organization [facility] Address [address] [place] [address] Care Team Providers Care Glass Unloading Equipment Tender Name Role Phone Jason Isaacs MD Primary Care Provider [phone] Reason for Visit * Reason Onset Date Comments Anemia and CKD follow-up 06/08/2020 Encounter Details Date Type Department Care Team ([facility] st Contact Info) Description 06/08/2020 Documentation [facility] Cardiology [address] [facility] [address] [place] [id number] Cathie Brody NP [address] [facility] [address] [place] [address] Anemia and CKD follow-up Social History Tobacco Use Types Packs/Day Years Used Date Smoking Tobacco: Former Cigarettes Q uit: 07/13/1998 Smokeless Tobacco: Never Alcohol Use Standard Drinks/Week Comments Yes 2 (1 standard drink = 0.6 oz pur e alcohol) 2 beers a day Comments Unknown Sex and Gender Information Value Date Recorded Sex Assigned at Not on file Legal Sex Female 12:00 AM ICE CREAM SCOOPER Gender Identity Not on file Sexual Orientation Not on file documented as of this encounter Progress Notes * Cathie Brody NP - 06/08/2020 3:41 PM CST PCP sent a copy of his office note from 06/06/2020. He is referring her to Hematology. He also saidhe would follow up with Dr. Gao about the abnormal renal ultrasound. CREAM SCOOPER documented in this encounter Plan of Treatment Not on file documented as of this encounter Visit Diagnoses Not on filedocumented in this encounter Care Teams Glass Unloading Equipment Tender Relationship Specialty Start Date End Date Jason Isaacs MD PCP - General Internal Medicine 07/13/18 documented as of this encounter
--- OUTSIDE RECORDS SUMMARY | 2024-04-12 04:09 | XMS_ITS | Encounter Summary ---
Author Organization [facility] Address [address] [place] [address] Care Team Providers Care Technical Support Manager Name Role Phone Jason Isaacs MD Primary Care Provider [phone] Encounter Details Date Type Department Care Team (Late st Contact Info) Description 08/01/2021 Telephone [facility] Cardiology [address] [place] [address] Edilberto Oscar MD [address] [id number] Social History Tobacco Use Types Packs/Day Years Used Date Smoking Tobacco: Former Cigarettes Q uit: 07/13/1998 Smokeless Tobacco: Never Alcohol Use Standard Drinks/Week Comments Yes 2 (1 standard drink = 0.6 oz pur e alcohol) 2 beers a day Comments Unknown Sex and Gender Information Value Date Recorded Sex Assigned at Not on file Legal Sex Female 12:00 AM INSPECTOR WATCH PARTS Gender Identity Not on file Sexual Orientation Not on file documented as of this encounter Miscellaneous Notes * Telephone Encounter - Mame Escobar MA - 08/01/2021 3:53 PM CDT Patient brought in patient assistance program form for [place]. Form completed and faxed. documented in this encounter Plan of Treatment Not on file documented as of this encounter Visit Diagnoses Not on filedocumented in this encounter Care Teams Technical Support Manager Relationship Specialty Start Date End Date Jason Isaacs MD PCP - General Internal Medicine 07/13/18 documented as of this encounter
--- OUTSIDE RECORDS SUMMARY | 2024-04-12 04:09 | XMS_ITS | Encounter Summary ---
Author Organization [facility] Address [address] [place] [address] Care Team Providers Care Electronics Computer Mechanic Name Role Phone Jason Isaacs MD Primary Care Provider [phone] Encounter Details Date Type Department Care Team (Late st Contact Info) Description 09/20/2019 Telephone [facility] Cardiology [address] [place] [address] Edilberto Oscar MD [address] [id number] Social History Tobacco Use Types Packs/Day Years Used Date Smoking Tobacco: Former Cigarettes Q uit: 07/13/1998 Smokeless Tobacco: Never Alcohol Use Standard Drinks/Week Comments Yes 2 (1 standard drink = 0.6 oz pur e alcohol) 2 beers a day Comments Unknown Sex and Gender Information Value Date Recorded Sex Assigned at Not on file Legal Sex Female 12:00 AM DENTAL INSURANCE COORDINATOR Gender Identity Not on file Sexual Orientation Not on file documented as of this encounter Miscellaneous Notes * Telephone Encounter - Mame Escobar MA - 09/20/2019 4:57 PM CDT Called patient and answered questions. * Telephone Encounter - Jacki Fields - 09/20/2019 2:40 PM CDT Chasidy has questions about the monitor that was place today. CB# [phone] documented in this encounter Plan of Treatment Not on file documented as of this encounter Visit Diagnoses Not on filedocumented in this encounter Care Teams Electronics Computer Mechanic Relationship Specialty Start Date End Date Jason Isaacs MD PCP - General Internal Medicine 07/13/18 documented as of this encounter
--- OUTSIDE RECORDS SUMMARY | 2024-04-12 04:09 | XMS_ITS | Encounter Summary ---
Author Organization [facility] Address [address] [place] [address] Care Team Providers Care Intake Worker Name Role Phone Jason Isaacs MD Primary Care Provider Reason for Visit * (Routine) - Closed Specialty Diagnoses / Procedures Referred By Contac t Referred To Contact Diagnoses PAF (paroxysmal atrial fibrillation) (CMS/HCC) (HCC) Procedures [facility] Mobile Cardiac Telemetry Event Monitor Edilberto Oscar MD [address] [place] [id number] Phone: tel: fax: [facility] Referral ID Status Reason Start Date Expiration Date Visits Re quested Visits Authorized [id number] Closed 09/15/2019 03/26/2021 1 1 Encounter Details Date Type Department Care Team (Latest Contact Info) Description 09/20/2019 1:00 PM CDT Ancillary Procedure [facility] Cardiology [address] [address] [address] [place] [address] PAF (paroxysmal atrial fibrillation) (CMS/HCC) Social History Tobacco Use Types Packs/Day Years Used Date Smoking Tobacco: Former Cigarettes Q uit: 07/13/1998 Smokeless Tobacco: Never Alcohol Use Standard Drinks/Week Comments Yes 2 (1 standard drink = 0.6 oz pur e alcohol) 2 beers a day Comments Unknown Sex and Gender Information Value Date Recorded Sex Assigned at Not on file Legal Sex Female 12:00 AM PROPULSION GENERATOR REPAIRER Gender Identity Not on file Sexual Orientation Not on file documented as of this encounter Procedure Notes * Edilberto Oscar MD - 09/26/2019 12:00 AM CDT SEVEN-DAY HELMET HAT BRIM CUTTER Indication Paroxysmal atrial fibrillation. Time Monitored 5 days 15 hours and 3 minutes. Days Monitored 7. Baseline Date 09/20/2019 through 09/26/2019. Findings Underlying normal sinus rhythm with heart rate variability between 50 and 179 beats per minute withan average heart rate of 75 beats per minute. There was one 8-beat run of paroxysmal supraventricular tachycardia at a rate of 179 beats per minute. There was also low-frequency supraventricular ectopy and low-frequency ventricular ectopy noted. There was no significant atrial fibrillation, pauses, heart block or ventricular tachycardia. Conclusion 1. Underlying normal sinus rhythm with average heart rate of 75 beats per minute. 2. One 8-beat run of nonsustained supraventricular tachycardia at a rate of 179 beats per minute. 3. No atrial fibrillation. Job ID/VF Job ID: [id number] documented in this encounter Plan of Treatment Pending Results Name Type Priority Associated Diagnoses Date /Time [facility] Mobile Cardiac Telemetry Event Monitor Cardiac Services Routine PAF (paroxysmal atrial fibrillation) (CMS/HCC) 09/20/2019 3:03 PM CDT documented as of this encounter Visit Diagnoses Diagnosis PAF (paroxysmal atrial fibrillation) (CMS/HCC) (HCC) Atrial fibrillation documented in this encounter Care Teams Intake Worker Relationship Specialty Start Date End Date Jason Isaacs MD PCP - General Internal Medicine 07/13/18 documented as of this encounter
--- OUTSIDE RECORDS SUMMARY | 2024-04-12 04:09 | XMS_ITS | Encounter Summary ---
Author Organization [facility] Address [address] [place] [address] Care Team Providers Care Can Dragger Name Role Phone Jason Isaacs MD Primary Care Provider [phone] Reason for Referral * Cardiology (Routine) - Closed Specialty Diagnoses / Procedures Referred By Contac t Referred To Contact Diagnoses PAF (paroxysmal atrial fibrillation) (CMS/HCC) (HCC) Procedures ECG 12 lead Edilebrto Oscar MD [address] [facility] [address] [place] [address] Phone: tel: fax: [facility] Referral ID Status Reason Start Date Expiration Date Visits Re quested Visits Authorized [id number] Closed 10/30/2020 11/29/2021 1 1 Encounter Details Date Type Department Care Team (Late st Contact Info) Description 10/30/2020 Telephone [facility] Cardiology [address] [address] [address] [place] [address] Edilberto Oscar MD [address] [facility] [address] [place] [address] Social History Tobacco Use Types Packs/Day Years Used Date Smoking Tobacco: Former Cigarettes Q uit: 07/13/1998 Smokeless Tobacco: Never Alcohol Use Standard Drinks/Week Comments Yes 2 (1 standard drink = 0.6 oz pur e alcohol) 2 beers a day Comments Unknown Sex and Gender Information Value Date Recorded Sex Assigned at Not on file Legal Sex Female 12:00 AM CHANNEL DEVELOPMENT DIRECTOR Gender Identity Not on file Sexual Orientation Not on file documented as of this encounter Miscellaneous Notes * Telephone Encounter - Rosenda Shahid RN - 10/30/2020 4:34 PM CDT Discussed with CK. Will have pt take extra half metoprolol if HR rapid later and BP stable. ekg tomorrow am. Pt can be seen tomorrow if needed by CK. Pt verbalized understanding. Pt aware she should go to the ER for worsening symptoms. * Telephone Encounter - Rosenda Shahid RN - 10/30/2020 4:12 PM CDT Pt calls to report that she thinks she went back in to afib last night. She flet her heart beating fast last night but did not do anything about it. This am her her HR was around 173, BP 105/83 at 8 am. 9am 114/71 145 1pm HR 92 3 pm BP 69/48, HR 93. [place] a little lightheaded. Now 118/83, HR 104, monitor still reads irregular. She is feeling a little better than before. Recently stopped her Diltiazem 120 mg daily. Pt is currently taking metoprolol 25 mg- 1/2 tablet once daily. She is asking if she should start her Dilt again. She has 8 pills left. I can have her come in for an EKG tomorrow am. ( of course ER for worsening symptoms) Please advise * Telephone Encounter - Kindra Dubois - 10/30/2020 3:56 PM CDT Pt called and stated she is in afib states she has shortness of breath, dizziness, and heart racing, no chest pains. Pt stated last night her BP was 69/48 HR 179 and this morning BP 105/83 HR 109. Please call pt to assist. Thank you. Contact: documented in this encounter Plan of Treatment Not on file documented as of this encounter Results * ECG 12 lead (10/31/2020) us Edilberto Oscar MD ECG ORDERABLES Final Res ult documented in this encounter Visit Diagnoses Diagnosis PAF (paroxysmal atrial fibrillation) (CMS/HCC) (HCC)- Primary Atrial fibrillation documented in this encounter Care Teams Can Dragger Relationship Specialty Start Date End Date Jason Isaacs MD PCP - General Internal Medicine 07/13/18 documented as of this encounter
--- OUTSIDE RECORDS SUMMARY | 2024-04-12 04:09 | XMS_ITS | Encounter Summary ---
Author Organization [facility] Address [address] [place] [address] Care Team Providers Care Supervisor Production Department Name Role Phone Jason Isaacs MD Primary Care Provider [phone] Encounter Details Date Type Department Care Team (Late st Contact Info) Description 11/12/2020 Telephone [facility] Cardiology [address] [place] [address] Edilberto Oscar MD [address] [address] Social History Tobacco Use Types Packs/Day Years Used Date Smoking Tobacco: Former Cigarettes Q uit: 07/13/1998 Smokeless Tobacco: Never Alcohol Use Standard Drinks/Week Comments Yes 2 (1 standard drink = 0.6 oz pur e alcohol) 2 beers a day Comments Unknown Sex and Gender Information Value Date Recorded Sex Assigned at Not on file Legal Sex Female 12:00 AM TITLE I PARAPROFESSIONAL Gender Identity Not on file Sexual Orientation Not on file documented as of this encounter Miscellaneous Notes * Telephone Encounter - Graciela eFrrer, RN - 11/12/2020 2:37 PM CDT Spoke with CK and she said pt diuretics were stopped d/t low BP after starting pt of flecainide. CKsaid now that she is back in NSR her BP may be better and if so we can restart her HCTZ. Called pt and her BP have been running 121/72, 110/64, 103/64, 105/64. Advised pt to restart HCTZ-told her she could take one now and resume at normal time tomorrow. Pt will keep track of her BP and bring in her readings on . Will forward to CT as FYI. * Telephone Encounter - Cathie Brody NP - 11/12/2020 2:13 PM CDT Could you ask Brittani Piper to help with this? She saw the patient in the office shortly before she went back into the hospital and probably followed her while she was in the hospital, she may be more familiar with why the medications were stopped. Thank you. * Telephone Encounter - Graciela Ferrer RN - 11/12/2020 1:41 PM CDT Called pt back. She is due to see CT in hospital f/u this 12/16. Pt was discharged from hospital on 11/02 and all of her diuretics were stopped-HCTZ and spironolactone. Pt said since then her feel and legs are swollen. She said she wakes up with them swollen and at night they are even worse. Aside from the swelling the pt is feeling fine-she has no pain or SOB. Pt knows she has an appt withCT this but she thought she would call us in the meantime. Pt does not weigh herself at home. Will forward to CT. Please advise, thank you! * Telephone Encounter - Smita Rodrigues - 11/12/2020 11:58 AM CDT Pt called states she was in the hosp recently,(hosp f/u scheduled 11/15)states for over a week now she has had edema in both legs and feet states worsens at night.please call pt to assist.Thank you Contact:[phone] documented in this encounter Plan of Treatment Not on file documented as of this encounter Visit Diagnoses Not on filedocumented in this encounter Care Teams Supervisor Production Department Relationship Specialty Start Date End Date Jason Isaacs MD PCP - General Internal Medicine 07/13/18 documented as of this encounter
--- OUTSIDE RECORDS SUMMARY | 2024-04-12 04:09 | XMS_ITS | Encounter Summary ---
Author Organization [facility] Address [address] [place] [address] Care Team Providers Care Employment Manager Name Role Phone Jason Isaacs MD Primary Care Provider [phone] Encounter Details Date Type Department Care Team (Late st Contact Info) Description 05/17/2020 Telephone [facility] Cardiology [address] [place] [address] Edilberto Oscar MD [address] [address] Social History Tobacco Use Types Packs/Day Years Used Date Smoking Tobacco: Former Cigarettes Q uit: 07/13/1998 Smokeless Tobacco: Never Alcohol Use Standard Drinks/Week Comments Yes 2 (1 standard drink = 0.6 oz pur e alcohol) 2 beers a day Comments Unknown Sex and Gender Information Value Date Recorded Sex Assigned at Not on file Legal Sex Female 12:00 AM CLERICAL AND OFFICE SUPPORT WORKERS Gender Identity Not on file Sexual Orientation Not on file documented as of this encounter Miscellaneous Notes * Telephone Encounter - Rosenda Shahid RN - 05/17/2020 3:57 PM CST Message given to [facility] ICAL AND OFFICE SUPPORT WORKERS * Telephone Encounter - Ninfa Pascal - 05/17/2020 3:[address] Gomez called to speak with to provide an update on pt. cb [phone] press # [phone] ICAL AND OFFICE SUPPORT WORKERS documented in this encounter Plan of Treatment Not on file documented as of this encounter Visit Diagnoses Not on filedocumented in this encounter Care Teams Employment Manager Relationship Specialty Start Date End Date Jason Isaacs MD PCP - General Internal Medicine 07/13/18 documented as of this encounter
--- OUTSIDE RECORDS SUMMARY | 2024-04-12 04:09 | XMS_ITS | Encounter Summary ---
Author Organization [facility] Address [address] [place] [address] Care Team Providers Care Manufacturing Shift Supervisor Name Role Phone Jason Isaacs MD Primary Care Provider [phone] Reason for Visit * Diagnostic Imaging (Routine) - Closed Specialty Diagnoses / Procedures Referred By Contac t Referred To Contact Diagnoses PAF (paroxysmal atrial fibrillation) (CMS/HCC) (HCC) Procedures NM MPI SPECT (Rest and/or Stress) Multiple Studies Edilberto Gill MD [address] [address] Phone: tel: fax: [facility] Referral ID Status Reason Start Date Expiration Date Visits Re quested Visits Authorized [id number] Closed 09/15/2019 03/26/2021 1 1 Encounter Details Date Type Department Care Team (Latest Contact Info) Description 09/29/2019 10:15 AM CDT Ancillary Procedure [facility] Cardiology 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 Gender Identity Not on file Sexual Orientation Not on file documented as of this encounter Last Filed Vital Signs Vital Sign Reading Time Taken Comments Blood Pressure - - Pulse - - Temperature 36.9 ??C (98.5 ??F) 09/29/2019 10:04 AM C DT Respiratory Rate - - Oxygen Saturation - - Inhaled Oxygen Concentration - - Weight - - Height - - Body Mass Index - - documented in this encounter Plan of Treatment Not on file documented as of this encounter Procedures Procedure Name Priority Date/Time Associated Diagnosis Comments NM MPI SPECT (REST AND/OR STRESS) MULTIPLE STUDIES Schedule Routine, Read Routine (OP Routine) 09/29/2019 11:28 AM CDT PAF (paroxysmal atrial fibrillation) ([facility]) documented in this encounter Results * NM MPI SPECT (Rest and/or Stress) Multiple Studies (09/29/2019 11:28 AM CDT) Anatomical Region Laterality Modality Body N/A Nuclear Medicine 09/29/2019 9:25 AM CDT Narrative 09/29/2019 5:34 PM CDT [facility] Cardiology [address] [facility] [address], [place] [address] [address] [facility] [address], [place] [address] P:[phone] P:[phone] MPI Imaging Report Patient Name: CHASIDY VELEZ K : 1945 Study Date: 09/29/2019 9:25:52 AM Gender: F Tech: [facility] Location: [place] Ref.Provider: EDILBERTO GILL Height(Cm): 175.3 BSA: ??Weight(Kg): 61.7 BMI: 20.08 Order Provider: EDILBERTO GILL Physician: Referring Physician: Dr. Isaacs. HCG Physician: Chema Gill M.D. Interpreting Physician: Chema Gill M.D. Stress Supervision: Chema Gill M.D. Procedures: Myocardial perfusion imaging with Tc99M Sestamibi SPECT at rest and stress post regadenoson (Lexiscan) infusion. Indications: Atrial Fibrillation, Hypertension, Pre-Op Clearance, Family Hx CAD, High Cholesterol, and Former Smoker. Findings: Procedural Findings: One day rest/stress was used. Tc99m Sestamibi injected IV at rest was 8.9 millicuries. 24.7 millicuries of Tc99M Sestamibi injected IV during Lexiscan stress. Lexiscan 0.4mg administered IV over 10 seconds. Patient had no symptoms during stress test. Baseline heart rate was 74 BPM. Maximum Heart Rate Achieved was: 109 BPM. Baseline blood pressure was 144/82 mmHg. Post Stress Blood Pressure was 148/80 mmHg. Termination: Protocol complete. Resting ECG: Normal sinus rhythm. Cannot r/o IMI - age uncertain. Post ECG: No diagnostic ST changes. Arrhythmia: Isolated PVC. Perfusion Findings: Normal perfusion imaging. No definite fixed or reversible defects. Prone imaging was not performed. Left ventricle cavity size at rest is normal. Left ventricle cavity size with stress is unchanged. A TID of 0.97 was automatically calculated. LV Function: Global left ventricular function is normal. Left ventricular ejection fraction is 64 %. Conclusions: Global left ventricular function is normal. Left ventricular ejection fraction is 64 %. Myocardial perfusion imaging is normal. Negative EKG portion of stress test. Electronically Signed By: Edilberto Gill MD 2019-09-29 17:34:23 CDT Electronically Signed By: Edilberto Gill MD 2019-09-29 17:34:23 CDT Procedure Note Edilberto Gill MD - 09/29/2019 [facility] Cardiology [address] [facility] [address], [place] [address] [address] [facility] [address], [place] [address] P:[phone] P:[phone] MPI Imaging Report Patient Name: CHASIDY VELEZ K : 1946 Study Date: 09/29/2019 9:25:52 AM Gender: F Tech: [facility] Location: [place] Ref.Provider: EDILBERTO GILL Height(Cm): 175.3 BSA: Weight(Kg): 61.7 BMI: 20.08 Order Provider: EDILBERTO GILL Physician: Referring Physician: Dr. Isaacs. HCG Physician: Chema Gill M.D. Interpreting Physician: Chema Gill M.D. Stress Supervision: Chema Gill M.D. Procedures: Myocardial perfusion imaging with Tc99M Sestamibi SPECT at rest and stresspost regadenoson (Lexiscan) infusion. Indications: Atrial Fibrillation, Hypertension, Pre-Op Clearance, Family Hx CAD, HighCholesterol, and Former Smoker. Findings: Procedural Findings: One day rest/stress was used. Tc99m Sestamibi injected IV at rest was 8.9millicuries. 24.7 millicuries of Tc99M Sestamibi injected IV during Lexiscan stress.Lexiscan 0.4mg administered IV over 10 seconds. Patient had no symptoms during stresstest. Baseline heart rate was 74 BPM. Maximum Heart Rate Achieved was: 109 BPM. Baselineblood pressure was 144/82 mmHg. Post Stress Blood Pressure was 148/80 mmHg. Termination: Protocol complete. Resting ECG: Normal sinus rhythm. Cannot r/o IMI - age uncertain. Post ECG: No diagnostic ST changes. Arrhythmia: Isolated PVC. Perfusion Findings: Normal perfusion imaging. No definite fixed or reversible defects. Proneimaging was not performed. Left ventricle cavity size at rest is normal. Left ventriclecavity size with stress is unchanged. A TID of 0.97 was automatically calculated. LV Function: Global left ventricular function is normal. Left ventricular ejectionfraction is 64 %. Conclusions: Global left ventricular function is normal. Left ventricular ejectionfraction is 64 %. Myocardial perfusion imaging is normal. Negative EKG portion of stress test. Electronically Signed By: Edilberto Gill MD 2019-09-29 17:34:23 CDT Electronically Signed By: Edilberto Gill MD 2019-09-29 17:34:23 CDT us Edilberto Gill MD IMG NM PROCEDURES Final R esult documented in this encounter Visit Diagnoses Diagnosis PAF (paroxysmal atrial fibrillation) (CMS/HCC) (HCC) Atrial fibrillation documented in this encounter Administered Medications Inactive Administered Medications - up to 3 most recent administrations Medication Order MAR Action Action Date Dose Rate Site regadenoson (LEXISCAN) 0.4 mg/5 mL injection 0.4 mg 0.4 mg, intravenous, Once, On Fernanda 09/29/19 at 1200, For 1 dose, Administer IV push over 10 seconds., Indications: Myocardial Perfusion Imaging AdjunctIndications:Myocard ial Perfusion Imaging Adjunct Given 09/29/2019 11:29 AM CDT 0.4 mg tc-99m sestamibi unit dose injection 24.7 millicurie 24.7 millicurie, intravenous, Once in imaging, radiopharmaceutical, Starting on Fernanda 09/29/19 at 1129, For 1 dose, Indications: Diagnostic RadiographyIndications:Ankita gnostic Radiography Given 09/29/2019 11:29 AM CDT 24.7 millicuries tc-99m sestamibi unit dose injection 8.9 millicurie 8.9 millicurie, intravenous, Once in imaging, radiopharmaceutical, Starting on Fernanda 09/29/19 at 1005, For 1 dose, Indications: Diagnostic RadiographyIndications:Ankita gnostic Radiography Given 09/29/2019 10:05 AM CDT 8.9 millicuries documented in this encounter Care Teams Manufacturing Shift Supervisor Relationship Specialty Start Date End Date Jason Isaacs MD PCP - General Internal Medicine 07/13/18 documented as of this encounter
--- OUTSIDE RECORDS SUMMARY | 2024-04-12 04:09 | XMS_ITS | Encounter Summary ---
Author Organization [facility] Address [address] [facility] [address] [place] [address] Care Team Providers Care Telegraph Service Rater Name Role Phone Jason Isaacs MD Primary Care Provider [phone] Reason for Visit * Cardiology (Routine) - Closed Specialty Diagnoses / Procedures Referred By Contac t Referred To Contact Diagnoses Abnormal electrocardiogram (ECG) (EKG) Fatigue, unspecified type Procedures Transthoracic Echo Complete W Doppler/CF Willie Rizvi NP [address] [facility] [address] [address] Phone: tel: fax: [facility] Referral ID Status Reason Start Date Expiration Date Visits Re quested Visits Authorized [id number] Closed 05/29/2020 06/28/2021 1 1 Encounter Details Date Type Department Care Team (Latest Contact Info) Description 06/12/2020 4:00 PM FURNITURE MOVER Ancillary Procedure [facility] Cardiology [address] [address] Abnormal electrocardiogram (ECG) (EKG) ; Fatigue, unspecified type Social History Tobacco Use Types Packs/Day Years Used Date Smoking Tobacco: Former Cigarettes Q uit: 07/13/1998 Smokeless Tobacco: Never Alcohol Use Standard Drinks/Week Comments Yes 2 (1 standard drink = 0.6 oz pur e alcohol) 2 beers a day Comments Unknown Sex and Gender Information Value Date Recorded Sex Assigned at Not on file 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 Gender Identity Not on file Sexual Orientation Not on file documented as of this encounter Last Filed Vital Signs Vital Sign Reading Time Taken Comments Blood Pressure - - Pulse - - Temperature 36.8 ??C (98.2 ??F) 06/12/2020 11:[address] Respiratory Rate - - Oxygen Saturation - - Inhaled Oxygen Concentration - - Weight - - Height - - Body Mass Index - - documented in this encounter Plan of Treatment Not on file documented as of this encounter Procedures Procedure Name Priority Date/Time Associated Diagnosis Comments TRANSTHORACIC ECHO (TTE) COMPLETE W DOPPLER/CF WO CONTRAST Routine 06/12/2020 12:52 PM FURNITURE MOVER Abnormal electrocardiogram (ECG) (EKG) Fatigue, unspecified type documented in this encounter Results * TRANSTHORACIC ECHO (TTE) COMPLETE W DOPPLER/CF WO CONTRAST (06/12/2020 12:52 PM FURNITURE MOVER) Anatomical Region Laterality Modality Ultrasound 06/12/2020 11:5 4 AM FURNITURE MOVER Narrative 06/12/2020 2:32 PM FURNITURE MOVER [facility] Cardiology [address] [facility] [address], [place] [address] [address] [facility] [address], [place] [address] P:[phone] P:[phone] Echocardiographic Report Patient Name: CHASIDY THOMAS K : 1945 Study Date: 06/12/2020 11:54:36 AM Gender: F Tech: Location: [place] Ref.Provider: MELISSA Height(Cm): 175 BSA: 1.8 Weight(Kg): 65.32 Heart Rate: 82 BP: 137/66 Quality: Good Order Provider: WILLIE RIZVI Procedures: Echocardiographic Report: Transthoracic echocardiogram with [...] Findings: Interpretation Site: Exam was interpreted at [facility]. Left Ventricle: Normal left ventricular systolic [...] Signed By: Shaggy Jackson MD 2020-06-12 14:32:06 FURNITURE MOVER Procedure Note Maykel Jackson MD - 06/12/2020 [facility] Cardiology [address] [facility] [address] [address] [address] [facility] [address], [place] [address] P:[phone] P:[phone] Echocardiographic Report Patient Name: CHASIDY THOMAS KPatient ID: [id number] : [id number] Date: 06/12/2020 11:54:36 AM Gender: FAccession #: [id number] Tech: GMLocation: [place] Ref.Provider: Za(Cm): 175 BSA: 1.8Weight(Kg): 65.32 Heart Rate: 82BP: 137/66 Quality: GoodOrder Provider: WILLIE RIZVI Procedures: Echocardiographic Report: Transthoracic echocardiogram with [...] 16.00 - 28.00 ] cc/m2 MV Decel Hfop009 [ 150 - 200 ] msec ACS MM 1.87 cm PV Peak Vel0.92 [ 0.40 - 0.80 ] m/s TR Peak Vel2.70 [ 0.40 - 0.80 ] m/s TR Peak PG 29mmHg RVSP37.00 mmHg E'0.08 E/E' 12 Findings: Interpretation Site: Exam was interpreted at [facility]. Left Ventricle: Normal left ventricular systolic [...] valve. Normal sinus rhythm. Electronically Signed By: Shgagy Jackson MD 2020-06-12 14:32:06 FURNITURE MOVER Willie Rizvi NP CV ECHO PROCEDURES Final Result documented in this encounter Visit Diagnoses Diagnosis Abnormal electrocardiogram (ECG) (EKG) Fatigue, unspecified type documented in this encounter Care Teams Telegraph Service Rater Relationship Specialty Start Date End Date Jason Isaacs MD PCP - General Internal Medicine 07/13/18 documented as of this encounter
--- OUTSIDE RECORDS SUMMARY | 2024-04-12 04:09 | XMS_ITS | Encounter Summary ---
Author Organization [facility] Address [address] [place] [address] Care Team Providers Care Product Operations Associate Name Role Phone Jason Isaacs MD Primary Care Provider [phone] Reason for Visit * Reason Comments Atrial Fibrillation Hypertension 6 mo f/u Encounter Details Date Type Department Care Team (Late st Contact Info) Description 08/01/2021 9:45 AM CDT Office Visit [facility] Cardiology [address] [place] [address] Edilberto Oscar MD [facility] [place] [id number] PAF (paroxysmal atrial fibrillation) (CMS/HCC) (HCC) (Primary Dx); Rheumatoid arthritis, involving unspecified site, unspecified whether rheumatoid factor present (HCC); Essential hypertension; Chronic anticoagulation; Chronic renal impairment, unspecified CKD stage Social [...] on file 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 Gender Identity Not on file Sexual Orientation Not on file documented as of this encounter Last Filed Vital Signs Vital Sign Reading Time Taken Comments Blood Pressure 120/72 08/01/2021 9:55 AM CDT Pulse 74 08/01/2021 9:55 AM CDT Temperature - - Respiratory Rate - - Oxygen Saturation 97% 08/01/2021 9:55 AM CDT Inhaled Oxygen Concentration - - Weight 71.2 kg (157 lb) 08/01/2021 9:55 AM CDT Height 175.3 cm (5' 9 ) 08/01/2021 9:55 AM CDT Body Mass Index 23.18 08/01/2021 9:55 AM CDT documented in this encounter Progress Notes * Edilberto Oscar MD - 08/01/2021 9:45 AM CDT Images from the original note were not included. [facility] DATE OF VISIT: 08/01/2021 CHIEF COMPLAINT Chief Complaint Patient presents with ??? Atrial Fibrillation ??? Hypertension 6 mo f/u HPI Chasidy Thomas [...] the addition of carvedilol Office visit with VAMPER 10/10/2019: She called the office a few weeks ago with complaint of some chestheaviness and ???feeling funny. Her home blood pressure machine had given an irregular heart beat indication. Dr. Oscar advised a 7 day quality assurance monitor and stress testing. Since the week [...] compression stockings to this point. Follow-up note 08/01/2021: She denies any chest pain, shortness breath, syncope, presyncope, paroxysmal nocturnal dyspnea, orthopnea, edema or palpitations. No bleeding problems MEDICAL HISTORY History reviewed. Was PAF, rheumatoid arthritis, hypertension Social History Tobacco Use ??? Smoking status: Former Smoker Types: Cigarettes Quit date: 07/13/1998 Years since quittin.0 ??? Smokeless tobacco: Never Used Substance Use [...] Allergies Allergen Reactions ??? Oxycodone Dizziness, Nausea only, Hypotension and Other (See comments) ??? Sulfadiazine Nausea And Vomiting REVIEW OF [...] 6 months or sooner as clinically indicated. She will bedue for an ECG at next visit Edilberto Oscar MD, [facility] documented in this encounter Plan of Treatment Not on file documented as of this encounter Visit Diagnoses Diagnosis PAF (paroxysmal atrial fibrillation) (CMS/HCC) (HCC)- Primary Atrial fibrillation Rheumatoid arthritis, involving unspecified site, unspecified whether rheumatoid factor present (HCC) Essential hypertension Unspecified essential hypertension Chronic anticoagulation Encounter for long-term (current) use of anticoagulants Chronic renal impairment, unspecified CKD stage documented in this encounter Care Teams Product Operations Associate Relationship Specialty Start Date End Date Jason Isaacs MD PCP - General Internal Medicine 07/13/18 documented as of this encounter
--- OUTSIDE RECORDS SUMMARY | 2024-04-12 04:09 | XMS_ITS | Encounter Summary ---
Author Organization [facility] Address [address] [place] [address] Care Team Providers Care Business Advisor Name Role Phone Jason Isaacs MD Primary Care Provider Reason for Visit * Cardiology (Routine) - Closed Specialty Diagnoses / Procedures Referred By Contac t Referred To Contact Diagnoses PAF (paroxysmal atrial fibrillation) (CMS/HCC) ([facility]) Procedures ECG 12 lead Edilberto Oscar MD [address] [address] Phone: tel: fax: [facility] Referral ID Status Reason Start Date Expiration Date Visits Re quested Visits Authorized [id number] Closed 10/30/2020 11/29/2021 1 1 Encounter Details Date Type Department Care Team (Latest Contact Info) Description 10/31/2020 10:00 AM CDT Procedure visit [facility] Cardiology [address] [address] [address] [place] [address] PAF (paroxysmal atrial fibrillation) (CMS/HCC) Social History [...] on file 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 Gender Identity Not on file Sexual Orientation Not on file documented as of this encounter Last Filed Vital Signs Vital Sign Reading Time Taken Comments Blood Pressure 110/64 10/31/2020 2:50 PM CDT Pulse 74 10/31/2020 2:50 PM CDT Temperature - - Respiratory Rate - - Oxygen Saturation 99% 10/31/2020 2:50 PM CDT Inhaled Oxygen Concentration - - Weight - - Height - - Body Mass Index - - documented in this encounter Progress Notes * Kleber Conley MA - 10/31/2020 10:00 AM CDT See telephone note documented in this encounter Plan of Treatment Not on file documented as of this encounter Procedures Procedure Name Priority Date/Time Associated Diagnosis Comments ECG 12-LEAD Routine 10/31/2020 PAF (paroxysmal atrial fibrillation) (CMS/HCC) documented in this encounter Results * ECG 12 lead (10/31/2020) us Edilberto Oscar MD ECG ORDERABLES Final Res ult documented in this encounter Visit Diagnoses Diagnosis PAF (paroxysmal atrial fibrillation) (CMS/HCC) (HCC) Atrial fibrillation documented in this encounter Care Teams Business Advisor Relationship Specialty Start Date End Date Jason Isaacs MD PCP - General Internal Medicine 07/13/18 documented as of this encounter
--- OUTSIDE RECORDS SUMMARY | 2024-04-12 04:09 | XMS_ITS | Encounter Summary ---
Author Organization [facility] Address [address] [place] [address] Care Team Providers Care Fur Dry Cleaner Hand Name Role Phone Jason Isaacs MD Primary Care Provider [phone] Reason for Visit * Reason Comments Atrial Fibrillation Fatigue Chronic Kidney Disease 6 mo f/u Encounter Details Date Type Department Care Team (Late st Contact Info) Description 07/17/2020 10:45 AM CDT Office Visit [facility] Cardiology [address] [place] [address] Edilberto Oscar MD [facility] [place] [id number] PAF (paroxysmal atrial fibrillation) ([facility]) (Primary Dx); Essential hypertension; Chronic renal impairment, unspecified CKD stage; Chronic anticoagulation; Rheumatoid arthritis, involving unspecified site, unspecified whether rheumatoid factor present ([facility]) Social History Tobacco Use Types Packs/Day Years Used Date Smoking Tobacco: Former Cigarettes Q uit: 07/13/1998 Smokeless Tobacco: Never Alcohol Use Standard Drinks/Week Comments Yes 2 (1 standard drink = 0.6 oz pur e alcohol) 2 beers a day Comments Unknown Sex and Gender Information Value Date Recorded Sex Assigned at Not on file Legal Sex Female 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 Gender Identity Not on file Sexual Orientation Not on file documented as of this encounter Last Filed Vital Signs Vital Sign Reading Time Taken Comments Blood Pressure 114/64 07/17/2020 10:44 AM CDT Pulse 78 07/17/2020 10:44 AM CDT Temperature - - Respiratory Rate - - Oxygen Saturation 97% 07/17/2020 10:44 AM CDT Inhaled Oxygen Concentration - - Weight 66.7 kg (147 lb) 07/17/2020 10:44 AM CDT Height 175.3 cm (5' 9 ) 07/17/2020 10:44 AM CDT Body Mass Index 21.71 07/17/2020 10:44 AM CDT documented in this encounter Progress Notes * Edilberto Oscar MD - 07/17/2020 10:45 AM CDT [facility] DATE OF VISIT: 07/17/2020 CHIEF COMPLAINT Chief Complaint Patient presents with ??? Atrial Fibrillation ??? Fatigue ??? Chronic Kidney Disease 6 mo f/u HPI Chasidy Thomas is a 74 y.o. [...] the addition of carvedilol Office visit with WELT STITCHER 10/10/2019: She called the office a few weeks ago with complaint of some chestheaviness and ???feeling funny. Her home blood pressure machine had given an irregular heart beat indication. Dr. Oscar advised a 7 day guide alpine and stress testing. Since the week she [...] Procrit shots. Hemoglobinhas been in the 8. MEDICAL HISTORY History reviewed. Was PAF, rheumatoid [...] 3 (three) times a day with meals HYDROCHLOROTHIAZIDE (HYDRODIURIL) 25 MG TABLET Take 25 mg by mouth daily LEFLUNOMIDE (ARAVA) 10 MG TABLET LOSARTAN (COZAAR) 25 MG TABLET MAGNESIUM OXIDE (MAG-OX) 400 MG (241.3 MG ELEMENTAL MAGNESIUM) TABLET Take 1 tablet by mouth 2 (two) times a day METOPROLOL XL (TOPROL-XL) 25 MG EXTENDED RELEASE TABLET Take 0.5 tablets (12.5 mg total) by mouth daily OMEPRAZOLE (PRILOSEC) 40 MG CAPSULE Take 40 mg by mouth daily. PREDNISONE (DELTASONE) 5 MG TABLET SPIRONOLACTONE (ALDACTONE) 25 MG TABLET Take 50 mg by mouth daily XARELTO 15 MG TABLET TAKE 1 TABLET BY MOUTH EVERY DAY ALLERGIES Allergies Allergen Reactions ??? Oxycodone Dizziness, Hypotension, Nausea only, Stomach upset and Other (See comments) ??? Sulfadiazine Nausea And Vomiting ??? Sulfasalazine Nausea only and Other (See comments) REVIEW OF SYSTEMS Review of Systems Constitution: Positive for malaise/fatigue. Negative for weight gain [...] for environmental allergies. PHYSICAL EXAM Blood pressure 114/64, pulse 78, height 175.3 cm (5' 9 ), weight 66.7 kg (147 lb), SpO2 97 %. Body mass index is 21.71 kg/m??. Physical Exam Constitutional: She is oriented to person, place, and time. She appears well-nourished. HENT: Head: Normocephalic and atraumatic. Nose: Nose normal. Eyes: Conjunctivae and EOM are normal. No scleral icterus. Cardiovascular: Normal rate, regular rhythm, normal heart sounds and intact distal pulses. Exam reveals no gallop and no friction rub. No murmur heard. Pulmonary/Chest: Effort normal and breath sounds normal. No respiratory distress. She has no wheezes. She has no rales. She exhibits no tenderness. Abdominal: Soft. Bowel sounds are normal. She exhibits no distension. There is no abdominal tenderness. Musculoskeletal: General: No edema. Normal range of motion. Cervical back: Neck supple. Neurological: She is alert and oriented to [...] sooner as clinically indicated Edilberto Oscar MD, [facility] documented in this encounter Plan of Treatment Not on file documented as of this encounter Visit Diagnoses Diagnosis PAF (paroxysmal atrial fibrillation) (CMS/HCC) (HCC)- Primary Atrial fibrillation Essential hypertension Unspecified essential hypertension Chronic renal impairment, unspecified CKD stage Chronic anticoagulation Encounter for long-term (current) use of anticoagulants Rheumatoid arthritis, involving unspecified site, unspecified whether rheumatoid factor present (HCC) documented in this encounter Historical Medications * This list may reflect changes made after this encounter. ferrous sulfate 325 mg (65 mg of elemental iron) tabletIndication s:Iron Deficiency Anemia Take 1 tablet (65 mg of elemental iron total) by mouth 3 (three) times a day with meals added in this encounter Care Teams Fur Dry Cleaner Hand Relationship Specialty Start Date End Date Jason Isaacs MD PCP - General Internal Medicine 07/13/18 documented as of this encounter
--- OUTSIDE RECORDS SUMMARY | 2024-04-12 04:09 | XMS_ITS | Encounter Summary ---
Author Organization [facility] Address [address] [place] [address] Care Team Providers Care Personal Development Educator Name Role Phone Jason Isaacs MD Primary Care Provider [phone] Encounter Details Date Type Department Care Team (Late st Contact Info) Description 10/14/2019 Telephone [facility] Cardiology [address] [place] [address] Edilberto Oscar MD [address] [id number] Social History Tobacco Use Types Packs/Day Years Used Date Smoking Tobacco: Former Cigarettes Q uit: 07/13/1998 Smokeless Tobacco: Never Alcohol Use Standard Drinks/Week Comments Yes 2 (1 standard drink = 0.6 oz pur e alcohol) 2 beers a day Comments Unknown Sex and Gender Information Value Date Recorded Sex Assigned at Not on file Legal Sex Female 12:00 AM FINISHED CLOTH 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 Oconnor. Due to spinal anesthesia and her marginal renal function, I told Dr. Oconnor I felt that a 72 hour hold was reasonable for Ms. Thomas's orthopedic surgery. * Telephone Encounter - Rosenda Shahid RN - 10/14/2019 11:55 AM CDT Situation discussed with CT. She will call Dr Oconnor to discuss conflicting hold info. * Telephone Encounter - Rosenda Shahid RN - 10/14/2019 10:42 AM CDT Message sent to [facility] via text also * Telephone Encounter - Ninfa Pascal - 10/14/2019 10:[address] Oconnor called to speak with Dr. Oscar in regards to pt care plan. He asked if Dr. Oscar can contact him between him seeing his patients. documented in this encounter Plan of Treatment Not on file documented as of this encounter Visit Diagnoses Not on filedocumented in this encounter Care Teams Personal Development Educator Relationship Specialty Start Date End Date Jason Isaacs MD PCP - General Internal Medicine 07/13/18 documented as of this encounter
--- OUTSIDE RECORDS SUMMARY | 2024-04-12 04:09 | XMS_ITS | Encounter Summary ---
Author Organization [facility] Address [address] [place] [address] Care Team Providers Care Lens Gauger Name Role Phone Jason Isaacs MD Primary Care Provider [phone] Encounter Details Date Type Department Care Team (Late st Contact Info) Description 12/14/2020 Telephone [facility] Cardiology [address] [place] [address] Edilberto Oscar MD [address] [address] Social History Tobacco Use Types Packs/Day Years Used Date Smoking Tobacco: Former Cigarettes Q uit: 07/13/1998 Smokeless Tobacco: Never Alcohol Use Standard Drinks/Week Comments Yes 2 (1 standard drink = 0.6 oz pur e alcohol) 2 beers a day Comments Unknown Sex and Gender Information Value Date Recorded Sex Assigned at Not on file Legal Sex Female 12:00 AM HIM SPECIALISTS Gender Identity Not on file Sexual Orientation Not on file documented as of this encounter Miscellaneous Notes * Telephone Encounter - Graciela Ferrer RN - 12/14/2020 11:15 AM CDT Called and spoke with pt, reviewed message from CT. Pt verbalized understanding and will look into getting some compression stockings. * Telephone Encounter - Cathie Brody NP - 12/14/2020 10:57 AM CDT Let us have her stop the furosemide and resume her spironolactone. Would she consider trying knee-high compression socks to help with the swelling? Keep checking BP 2 to 3 times a week. If systolic BP goes up to 130 or higher with the majority of the BP checks, call the office so we can restart herlosartan. Thank you. * Telephone Encounter - Graciela Ferrer RN - 12/14/2020 10:28 AM CDT Pt called to report (as we requested) that her swelling is still there but she thinks it is a little better while on the furosemide 20mg. Pt says she has no SOB or any other issues-she feels fine. She has not been weighing herself. Pt is wondering what she is to do going forward? She hasnt been taking HCTZ, spironolactone or the losartan. Will forward to CT. Please advise,thank you! MANEI-on 12/07 CK advised: She can continue the furosemide for another 7 days and call office with update next week. If her BP is not soft, her spironolactone can be resumed to help with the edema. Please discuss sodium restriction (2g/day) with her as well. Thank you. * Telephone Encounter - Kindra Dubois - 12/14/2020 9:04 AM CDT Pt called states she is taking Furosemide and is calling to report her BP readings. Also states herlegs are still swelling, but has improved. Requesting a call from nurse. 12/08 BP= 109/60 HR 72 12/09 BP= 132/73 HR 65 12/10 BP= 119/67 HR 72 12/11 BP= 122/70 HR 72 12/12 BP= 108/60 HR 68 12/13 BP= 107/61 HR 67 12/14 BP= 116/67 HR 64 Contact: documented in this encounter Plan of Treatment Not on file documented as of this encounter Visit Diagnoses Not on filedocumented in this encounter Care Teams Lens Gauger Relationship Specialty Start Date End Date Jason Isaacs MD PCP - General Internal Medicine 07/13/18 documented as of this encounter
--- OUTSIDE RECORDS SUMMARY | 2024-04-12 04:09 | XMS_ITS | Encounter Summary ---
Author Organization [facility] Address [address] [place] [address] Care Team Providers Care Turn Sewer Name Role Phone Jason Isaacs MD Primary Care Provider [phone] Reason for Visit * Reason Onset Date Comments cardiac clearance needed 10/12/2019 Encounter Details Date Type Department Care Team (Late st Contact Info) Description 10/12/2019 Telephone [facility] Cardiology [address] [place] [address] Edilberto Oscar MD [address] [id number] cardiac clearance needed Social History Tobacco Use Types Packs/Day Years Used Date Smoking Tobacco: Former Cigarettes Q uit: 07/13/1998 Smokeless Tobacco: Never Alcohol Use Standard Drinks/Week Comments Yes 2 (1 standard drink = 0.6 oz pur e alcohol) 2 beers a day Comments Unknown Sex and Gender Information Value Date Recorded Sex Assigned at Not on file Legal Sex Female 12:00 AM RN DOCUMENT IMPROVEMENT SPECIALIST Gender Identity Not on file Sexual Orientation Not on file documented as of this encounter Miscellaneous Notes * Telephone Encounter - Nita Gross RN - 10/12/2019 11:04 AM CDT Clearance received from Dr. Oscar. I faxed the clearance letter over. * Telephone Encounter - Nita Gross RN - 10/12/2019 10:30 AM CDT I called Marisol back. Patient is having a right total knee arthroplasty on 10/18/19 and her orthopedic surgeon wants cardiac clearance and would like permission to hold her Xarelto for 4 days prior to the procedure. Will forward to Dr. Oscar and Cathie Brody NP to review and comment. Return fax number is [phone]. * Telephone Encounter - Erica Slater - 10/12/2019 9:34 AM CDT Marisol janeth/ [facility] called requesting cardiac clearance pt is [facility] for surgery 10-18-2019. cb Marisol [phone] documented in this encounter Plan of Treatment Not on file documented as of this encounter Visit Diagnoses Not on filedocumented in this encounter Care Teams Turn Sewer Relationship Specialty Start Date End Date Jason Isaacs MD PCP - General Internal Medicine 07/13/18 documented as of this encounter
--- OUTSIDE RECORDS SUMMARY | 2024-04-12 04:09 | XMS_ITS | Encounter Summary ---
Author Organization [facility] Address [address] [facility] [address] [place] [address] Care Team Providers Care Pocket Stitcher Name Role Phone Jason Isaacs MD Primary Care Provider [phone] Reason for Referral * (Routine) - Closed Specialty Diagnoses / Procedures [facility] Referred To Contact Diagnoses PAF (paroxysmal atrial fibrillation) (CMS/HCC) (HCC) Procedures MCT Mobile Cardiac Telemetry Event Monitor Jeane Gill MD [address] [address] Phone: tel: fax: [facility] Referral ID Status Reason Start Date Expiration Date Visits Re quested Visits Authorized [id number] Closed 09/15/2019 03/26/2021 1 1 * Diagnostic Imaging (Routine) - Closed Specialty Diagnoses / Procedures [facility] Referred To Contact Diagnoses PAF (paroxysmal atrial fibrillation) (CMS/HCC) (HCC) Procedures NM MPI SPECT (Rest and/or Stress) Multiple Studies Jeane Gill MD [address] [place] [address] [address] Phone: tel: fax: [facility] Referral ID Status Reason Start Date Expiration Date Visits Re quested Visits Authorized [id number] Closed 09/15/2019 03/26/2021 1 1 Encounter Details Date Type Department Care Team (Late st Contact Info) Description 09/15/2019 Telephone [facility] Cardiology [address] [place] [address] Jeane Gill MD [address] [facility] [address] [place] [address] Social History Tobacco Use Types Packs/Day Years Used Date Smoking Tobacco: Former Cigarettes Q uit: 07/13/1998 Smokeless Tobacco: Never Alcohol Use Standard Drinks/Week Comments Yes 2 (1 standard drink = 0.6 oz pur e alcohol) 2 beers a day Comments Unknown Sex and Gender Information Value Date Recorded Sex Assigned at Not on file Legal Sex Female 12:00 AM VENDING MECHANIC Gender Identity Not on file Sexual Orientation Not on file documented as of this encounter Miscellaneous Notes * Telephone Encounter - Rosenda Shahid RN - 09/15/2019 5:22 PM CDT Spoke with pt. Scheduled for raman, 7 day monitor and f/u with CT. Pt verbalized understanding. * Telephone Encounter - Jeane Gill MD - 09/15/2019 4:58 PM CDT Schedule her for a Lexiscan and a 7 day dna analyst. Follow up with mandy in off to review tests before signing off on clearance. Mandy appointment should be after tests - schedule appointment with her in 3 weeks. * Telephone Encounter - Rosenda Shahid RN - 09/15/2019 10:29 AM CDT Pt is due to have knee replacement on 10/16. Last OV 07/24 (telehealth). Pt reports that since then she has had a couple of incidents of feeling funny. She took her BP bc she was not sure if her HR was going to fast or too slow and it was 126/71, 84 but HR reported as irregular . This occurred on 2 occasions. On September 09. Pt states she woke with chest heaviness, got up and sat in the chair forabout an hour when it finally resolved and she fell asleep. Denies any other symptoms, no radiatingpain, nausea, diaphoresis, etc at that time. Pt states she has had a few days with her BP reading 93/68, 96/81 and HR irregular. She states she has been feeling fine since then and has had no otheroccurences of CP. Today 135/83. hx PAF, Pt on Xarelto. Last ST 07/24/2017. Would you like to see the pt or order any other preop testing ? * Telephone Encounter - Erica Slater - 09/15/2019 9:40 AM CDT Pt has requested a return call to discuss her pending knee surgery. [phone] documented in this encounter Plan of Treatment Pending Results Name Type Priority Associated Diagnoses Date /Time [facility] Mobile Cardiac Telemetry Event Monitor Cardiac Services Routine PAF (paroxysmal atrial fibrillation) ([facility]) 09/20/2019 3:03 PM CDT Scheduled Orders Name Type Priority Associated Diagnoses Orde r Schedule [facility] Mobile Cardiac Telemetry Event Monitor Cardiac Services Routine PAF (paroxysmal atrial fibrillation) ([facility]) Expected: 09/15/2019, Expires: 09/14/2020 documented as of this encounter Results * NM MPI SPECT (Rest and/or Stress) Multiple Studies (09/29/2019 11:28 AM CDT) Anatomical Region Laterality Modality Body N/A Nuclear Medicine 09/29/2019 9:25 AM CDT Narrative 09/29/2019 5:34 PM CDT [facility] Cardiology [address], [place] [address] [address] [facility] [address], [place] [address] P:[phone] P:[phone] MPI Imaging Report Patient Name: CHASIDY THOMAS K : 1945 Study Date: 09/29/2019 9:25:52 AM Gender: F Tech: [facility] Location: [place] Ref.Provider: JEANE GILL Height(Cm): 175.3 BSA: ??Weight(Kg): 61.7 BMI: 20.08 Order Provider: JEANE GILL Physician: Referring Physician: Dr. Isaacs. HCG [...] portion of stress test. Electronically Signed By: Jeane Gill MD 2019-09-29 17:34:23 CDT Electronically Signed By: Jeane Gill MD 2019-09-29 17:34:23 CDT Procedure Note Jeane Gill MD - 09/29/2019 [facility] Cardiology [address], [place] [address] [address], [place] [address] P:[phone] P:[phone] MPI Imaging Report Patient Name: CHASIDY THOMAS K : 1945 Study Date: 09/29/2019 9:25:52 AM Gender: F Tech: [employer] [facility] Location: [place] Ref.Provider: JEANE GILL Height(Cm): 175.3 BSA: Weight(Kg): 61.7 BMI: 20.08 Order Provider: JEANE GILL Physician: Referring Physician: Dr. Isaacs. HCG [...] portion of stress test. Electronically Signed By: Jeane Gill MD 2019-09-29 17:34:23 CDT Electronically Signed By: Jeane Gill MD 2019-09-29 17:34:23 CDT us Jeane Gill MD IMG NM PROCEDURES Final R esult documented in this encounter Visit Diagnoses Diagnosis PAF (paroxysmal atrial fibrillation) (CMS/HCC) (HCC)- Primary Atrial fibrillation PAF (paroxysmal atrial fibrillation) (CMS/HCC) (HCC) Atrial fibrillation documented in this encounter Care Teams Pocket Stitcher Relationship Specialty Start Date End Date Jason Isaacs MD PCP - General Internal Medicine 07/13/18 documented as of this encounter
--- OUTSIDE RECORDS SUMMARY | 2024-04-12 04:09 | XMS_ITS | Encounter Summary ---
Author Organization [facility] Address [address] [place] [address] Care Team Providers Care Association Executive Name Role Phone Jason Isaacs MD Primary Care Provider [phone] Reason for Visit * Diagnostic Imaging (Routine) - Closed Specialty Diagnoses / Procedures Referred By Contac t Referred To Contact Cardiology Diagnoses PAF (paroxysmal atrial fibrillation) (CMS/HCC) (HCC) SOB (shortness of breath) Procedures NM MPI SPECT (Rest and/or Stress) Multiple Studies Jeane Gill MD [address] [address] Phone: tel: fax: Referral ID Status Reason Start Date Expiration Date Visits Re quested Visits Authorized [id number] Closed 06/24/2023 07/23/2024 1 1 Encounter Details Date Type Department Care Team (Latest Contact Info) Description 07/01/2023 8:15 AM CAKE WRAPPER Ancillary Procedure [facility] Cardiology [address] [place] [address] PAF (paroxysmal atrial fibrillation) (CMS/HCC) (HCC); SOB (shortness of breath) Social History Tobacco [...] on file Legal Sex Female 12:00 AM CAKE WRAPPER Gender Identity Not on file Sexual Orientation Not on file documented as of this encounter Plan of Treatment Not on file documented as of this encounter Procedures Procedure Name Priority Date/Time Associated Diagnosis Comments NM MPI SPECT (REST AND/OR STRESS) MULTIPLE STUDIES Schedule Routine, Read Routine (OP Routine) 07/01/2023 9:24 AM CAKE WRAPPER PAF (paroxysmal atrial fibrillation) (CMS/HCC) (HCC) SOB (shortness of breath) documented in this encounter Results * NM MPI SPECT (Rest and/or Stress) Multiple Studies (07/01/2023 9:24 AM CAKE WRAPPER) Anatomical Region Laterality Modality Body N/A Nuclear Medicine 07/01/2023 8:26 AM CAKE WRAPPER Narrative 07/02/2023 9:01 AM CAKE WRAPPER [facility] Cardiology [address] [facility] [address] [address] [address] [facility] [address], [place] [address] P:[phone] P:[phone] MPI Imaging Report Patient Name: CHASIDY VELEZ K : 1945 Study Date: 07/01/2023 8:26:21 AM Gender: F Tech: [facility] Location: [facility] Provider: JEANE GILL ?Height(Cm): 175.3 BSA: ??Weight(Kg): [...] is probably normal. Recommend follow up with curb hop. Electronically Signed By: Shaggy Jacksno MD 2023-07-02 09:00:48 CAKE WRAPPER Electronically Signed By: Shaggy Jackson MD 2023-07-02 09:00:48 CAKE WRAPPER Procedure Note Maykel Jackson MD - 07/02/2023 [facility] Cardiology [address] [facility] [address], [place] [address] [address] [facility] [address], [place] [address] P:[phone] P:[phone] MPI Imaging Report Patient Name: CHASIDY VELEZ K : 1945 Study Date: 07/01/2023 8:26:21 AM Gender: F Tech: [employer] [facility] Location: [facility] Provider: JEANE GILL Height(Cm): 175.3 BSA: Weight(Kg): [...] is probably normal. Recommend follow up with curb hop. Electronically Signed By: Shaggy Jackson MD 2023-07-02 09:00:48 CAKE WRAPPER Electronically Signed By: Shaggy Jackson MD 2023-07-02 09:00:48 CAKE WRAPPER Jeane Gill MD IMG NM PROCEDURES Final R esult documented in this encounter Visit Diagnoses Diagnosis PAF (paroxysmal atrial fibrillation) (CMS/HCC) (HCC) Atrial fibrillation SOB (shortness of breath) Shortness of breath documented in this encounter Administered Medications Inactive Administered Medications - up to 3 most recent administrations Medication Order MAR Action Action Date Dose Rate Site regadenoson (LEXISCAN) 0.4 mg/5 mL injection 0.4 mg 0.4 mg, intravenous, Once, On Thu07/01/23 at 1000, For 1 dose, Administer IV push over 10 seconds., Indications: Myocardial Perfusion Imaging AdjunctIndications:Myocard ial Perfusion Imaging Adjunct Given 07/01/2023 9:24 AM CAKE WRAPPER 0.4 mg tc-99m sestamibi unit dose injection 10.4 millicurie 10.4 millicurie, intravenous, Once in imaging, radiopharmaceutical, Starting on Thu07/01/23 at 0832, For 1 dose, Indications: Diagnostic RadiographyIndications:Ankita gnostic Radiography Given 07/01/2023 8:32 AM CAKE WRAPPER 10.4 millicuries tc-99m sestamibi unit dose injection 33 millicurie 33 millicurie, intravenous, Once in imaging, radiopharmaceutical, Starting on Thu07/01/23 at 0924, For 1 dose, Indications: Diagnostic RadiographyIndications:Ankita gnostic Radiography Given 07/01/2023 9:24 AM CAKE WRAPPER 33 millicuries documented in this encounter Care Teams Association Executive Relationship Specialty Start Date End Date Jason Isaacs MD PCP - General Internal Medicine 07/13/18 documented as of this encounter
--- OUTSIDE RECORDS SUMMARY | 2024-04-12 04:10 | XMS_ITS | Encounter Summary ---
Author Organization [facility] Address [address] [facility] [address] [place] [address] Care Team Providers Care Yarn Sizer Name Role Phone Jason Isaacs MD Primary Care Provider Encounter Details Date Type Department Care Team (Late st Contact Info) Description 06/16/2019 Telephone [facility] Cardiology [address] [facility] [address] [place] [address] Edilberto Oscar MD [address] [id number] Social History Tobacco Use Types Packs/Day Years Used Date Smoking Tobacco: Former Cigarettes Q uit: 07/13/1998 Smokeless Tobacco: Never Alcohol Use Standard Drinks/Week Comments Yes 2 (1 standard drink = 0.6 oz pur e alcohol) 2 beers a day Comments Unknown Sex and Gender Information Value Date Recorded Sex Assigned at Not on file Legal Sex Female 12:00 AM NETWORK CONSULTANT Gender Identity Not on file Sexual Orientation Not on file documented as of this encounter Miscellaneous Notes * Telephone Encounter - Africa Stewart RN - 06/17/2019 8:22 AM NETWORK CONSULTANT Noted ORK CONSULTANT * Telephone Encounter - Edilberto Oscar MD - 06/17/2019 8:10 AM NETWORK CONSULTANT She will likely not need any significant workup prior to a knee replacement but will discuss further at her visit on the 24 of July. ORK CONSULTANT * Telephone Encounter - Africa Stewart RN - 06/16/2019 9:49 AM NETWORK CONSULTANT Spoke with patient. She states that Dr. Oconnor will be doing her surgery. She doesn't anticipate surgery being until July. Patient has an appointment with Dr. Oscar on 07/25/19 and will discuss is further at that time. Will forward to Dr. Oscar for FYI and any possible further orders. ORK CONSULTANT * Telephone Encounter - Ninfa Pascal - 06/16/2019 9:39 AM CST Pt called to request a surgical clearance for a knee replacement. Surgery date not schedule yet. [phone] ORK CONSULTANT documented in this encounter Plan of Treatment Not on file documented as of this encounter Visit Diagnoses Not on filedocumented in this encounter Care Teams Yarn Sizer Relationship Specialty Start Date End Date Jason Isaacs MD PCP - General Internal Medicine 07/13/18 documented as of this encounter
--- OUTSIDE RECORDS SUMMARY | 2024-04-12 04:10 | XMS_ITS | Encounter Summary ---
Author Organization [facility] Address [address] [facility] [address] [place] [address] Care Team Providers Care Division Superintendent Name Role Phone Jason Isaacs MD Primary Care Provider [phone] Reason for Visit * Reason Comments Atrial Fibrillation Hypertension 6 mo f/u Encounter Details Date Type Department Care Team (Late st Contact Info) Description 07/13/2018 9:45 AM CDT Office Visit [facility] [address] [facility] [address] [place] [address] Edilberto Oscar MD [facility] [place] [id number] PAF (paroxysmal atrial fibrillation) (CMS/HCC) (Primary Dx); Rheumatoid arthritis, involving unspecified site, unspecified rheumatoid factor presence (CMS/HCC); Essential hypertension; Chronic anticoagulation; Lipid screening Social History Tobacco Use Types Packs/Day Years Used Date Smoking Tobacco: Former Cigarettes Q uit: 07/13/1998 Smokeless Tobacco: Never Alcohol Use Standard Drinks/Week Comments Yes 2 (1 standard drink = 0.6 oz pur e alcohol) 2 beers a day Comments Unknown Sex and Gender Information Value Date Recorded Sex Assigned at Not on file Legal Sex Female 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 Gender Identity Not on file Sexual Orientation Not on file documented as of this encounter Last Filed Vital Signs Vital Sign Reading Time Taken Comments Blood Pressure 146/88 07/13/2018 10:19 AM CDT Pulse 77 07/13/2018 10:19 AM CDT Temperature - - Respiratory Rate - - Oxygen Saturation 99% 07/13/2018 10:19 AM CDT Inhaled Oxygen Concentration - - Weight 61.2 kg (135 lb) 07/13/2018 10:19 AM CDT Height 175.3 cm (5' 9 ) 07/13/2018 10:19 AM CDT Body Mass Index 19.94 07/13/2018 10:19 AM CDT documented in this encounter Progress Notes * Edilberto Oscar MD - 07/13/2018 9:45 AM CDT [facility] DATE OF VISIT: 07/13/2018 CHIEF COMPLAINT Chief Complaint Patient presents with ??? Atrial Fibrillation ??? Hypertension 6 mo f/u HPI Chasidy Thomas is a 72 y.o. female with atrial fibrillation. I saw [...] her age. She returns today for follow-up. Follow-up note 07/13/2018: She returns without any complaints of chest pain, shortness breath, syncope, presyncope, paroxysmal nocturnal dyspnea, orthopnea, unusual edema or palpitations. No bleedingproblems MEDICAL HISTORY History reviewed. Was PAF, rheumatoid arthritis, hypertension Social History Tobacco Use ??? Smoking status: Former Smoker Types: Cigarettes Last attempt to quit: 07/13/1998 Years since quittin.0 ??? Smokeless tobacco: Never Used Substance Use Topics ??? Alcohol use: Yes Alcohol/week: 1.2 oz Types: 2 Cans of beer per week Comment: 2 beers a day ??? Drug use: No No family history on file. MEDICATIONS Home Medications ALPRAZOLAM (XANAX) 0.5 MG TABLET ASCORBIC ACID (ASCORBIC ACID WITH RUPESH HIPS) 500 MG TABLET,CHEWABLE ATORVASTATIN (LIPITOR) 20 MG TABLET CALCIUM CITRATE-VITAMIN D3 200 MG CALCIUM -250 UNIT TABLET 1 tablet. LACTOBAC. RHAMNOSUS GG-INULIN (CULTURELLE PROBIOTICS) 10 BILLION CELL -200 MG CAPSULE Take 1 capsule by mouth daily LEFLUNOMIDE (ARAVA) 10 MG TABLET LYSINE 500 MG TABLET 500 mg. OMEPRAZOLE (PRILOSEC) 40 MG CAPSULE Take 40 mg by mouth daily. POTASSIUM 99 MG TABLET Take by mouth. PREDNISONE (DELTASONE) 5 MG TABLET TRIAMTERENE-HYDROCHLOROTHIAZIDE (DYAZIDE) 37.5-25 MG PER CAPSULE Take 1 capsule by mouth every morning. TURMERIC ROOT EXTRACT 500 MG CAPSULE Take 1 capsule by mouth daily XARELTO 20 MG TABLET Take 1 tablet (20 mg total) by mouth daily. ALLERGIES Allergies Allergen Reactions ??? Sulfasalazine Nausea only REVIEW OF SYSTEMS Review of Systems Constitution: Negative for weight gain and weight loss. HENT: Negative for hearing loss. Eyes: Negative for blurred vision and visual disturbance. Cardiovascular: Positive for leg swelling. Negative for chest pain, claudication, dyspnea on exertion, irregular heartbeat, near-syncope, orthopnea, palpitations, paroxysmal nocturnal dyspnea and [...] for environmental allergies. PHYSICAL EXAM Blood pressure 146/88, pulse 77, height 175.3 cm (5' 9 ), weight 61.2 kg (135 lb), SpO2 99 %. Body mass index is 19.94 kg/m??. Physical Exam Constitutional: She is oriented [...] She exhibits no distension. There is no tenderness. Musculoskeletal: Normal range of motion. She exhibits no edema. Neurological: She is alert and oriented [...] for this visit: PAF (paroxysmal atrial fibrillation) ([facility]/HCC) (Primary) Remains in sinus rhythm and on anticoagulation Essential hypertension At goal Rheumatoid arthritis, involving unspecified site, unspecified rheumatoid factor presence (CMS/HCC) Stable Chronic anticoagulation No bleeding problems Chronic renal insufficiency: Creatinine 1.1 with creatinine clearance of less than 50 PLAN/RECOMMENDATIONS Basic metabolic panel to re-evaluate her creatinine clearance. Most recent kidney function does show mild renal dysfunction to the point that she should be on the 15 mg dose of Xarelto if there is noimprovement in kidney function upon recheck. At this point, No changes to her cardiac regimen at this point. I will see her back in 6 months or sooner as clinically indicated. Edilberto Oscar MD, [facility] documented in this encounter Miscellaneous Notes * Addendum Note - Mame Escobar MA - 07/13/2018 9:45 AM CDTAddended by: MAME ESCOBAR on: 07/13/2018 11:10 AM Modules accepted: Orders documented in this encounter Plan of Treatment Scheduled Orders Name Type Priority Associated Diagnoses Orde r Schedule Basic metabolic panel Lab Routine PAF (paroxysmal atrial fibrillation) ([facility]/HCC) Chronic anticoagulation 1 Occurrences starting 07/13/2018 until 07/14/2019 documented as of this encounter Procedures Procedure Name Priority Date/Time Associated Diagnosis Comments POCT LIPID PANEL Routine 07/13/2018 11:1 0 AM CDT Lipid screening documented in this encounter Results * POCT lipid panel (07/13/2018 11:10 AM CDT) Cholesterol, POC 204 mg/dL HDL, POC 97 mg/dL Triglycerides, POC 149 mg/dL LDL Cholesterol POC 77 mg/dL Chol/HDL Ratio, POC 2.1 Non-HDL Cholesterol, POC 107 mg/dL Cholesterol Total, POC 204 mg/dL Blood specimen (specimen) 07/13/2018 11:10 AM CDT Edilberto Oscar MD POINT OF CARE TEST ORDERA BLES Final Result documented in this encounter Visit Diagnoses Diagnosis PAF (paroxysmal atrial fibrillation) (CMS/HCC) (HCC)- Primary Atrial fibrillation Rheumatoid arthritis, involving unspecified site, unspecified rheumatoid factor presence Essential hypertension Unspecified essential hypertension Chronic anticoagulation Encounter for long-term (current) use of anticoagulants Lipid screening Screening for lipoid disorders documented in this encounter Historical Medications * This list may reflect changes made after this encounter. Lactobac. rhamnosus GG-inulin (CULTURELLE PROBIOTICS) 10 billion cell -200 mg capsule Take 1 capsule by mouth daily 01/18/2019 turmeric root extract 500 mg capsule Take 1 capsule by mouth daily 07/25/2019 added in this encounter Care Teams Division Superintendent Relationship Specialty Start Date End Date Jason Isaacs MD PCP - General Internal Medicine 07/13/18 documented as of this encounter
--- OUTSIDE RECORDS SUMMARY | 2024-04-12 04:10 | XMS_ITS | Encounter Summary ---
Author Organization [facility] Address [address] [facility] [address] [place] [address] Care Team Providers Care Retail Store Clerk Name Role Phone Cristobal Olivas MD Primary Care Provider [phone] Jason Isaacs MD Primary Care Provider [phone] Encounter Details Date Type Department Care Team (Late st Contact Info) Description 07/09/2018 Telephone [facility] [address] [place] [phone] Edilberto Oscar MD [address] [place] [address] Social History Tobacco Use Types Packs/Day Years Used Date Smoking Tobacco: Never Smokeless Tobacco: Never Alcohol Use Standard Drinks/Week Comments Yes 2 (1 standard drink = 0.6 oz pur e alcohol) 2 beers a day Comments Unknown Sex and Gender Information Value Date Recorded Sex Assigned at Not on file Legal Sex Female 12: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 Pt has appt to see Dr Oscar next week, so pharmacy will tell pt to hold off filling the Rx until then. * Telephone Encounter - Yoselyn Bunch - 07/09/2018 10:52 AM CDT [facility] called to inform MAF pt PCP started her on Diltiazem, [facility] says theres a drug interaction with Xarelto, [facility] wants a call back to discuss. cb [phone] documented in this encounter Plan of Treatment Not on file documented as of this encounter Visit Diagnoses Not on filedocumented in this encounter Care Teams Retail Store Clerk Relationship Specialty Start Date End Date Cristobal Olivas MD [address] [place] [address] PCP - General Surgery 09/04/17 07/12/18 Jason Isaacs MD [address] [place] [address] PCP - General Internal Medicine 07/13/18 documented as of this encounter
--- OUTSIDE RECORDS SUMMARY | 2024-04-12 04:10 | XMS_ITS | Encounter Summary ---
Author Organization [facility] Address [address] [place] [address] Care Team Providers Care Medical Advisor Name Role Phone Cristobal Olivas MD Primary Care Provider [phone] Reason for Visit * Reason Comments New Patient HFU on PAF, HTN Encounter Details Date Type Department Care Team (Latest Contact Info) Description 09/04/2017 9:45 AM CDT Office Visit [facility] [address] [place] [address] Edilberto Oscar MD [facility] [place] [id number] PAF (paroxysmal atrial fibrillation) (CMS/HCC) (Primary Dx); Essential hypertension; Rheumatoid arthritis, involving unspecified site, unspecified rheumatoid factor presence (CMS/HCC); Chronic anticoagulation Social History Tobacco Use Types Packs/Day Years Used Date Smoking Tobacco: Never Smokeless Tobacco: Never Alcohol Use Standard Drinks/Week Comments Yes 2 (1 standard drink = 0.6 oz pur e alcohol) 2 beers a day Comments Unknown Sex and Gender Information Value Date Recorded Sex Assigned at Not on file Legal Sex Female 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 Gender Identity Not on file Sexual Orientation Not on file documented as of this encounter Last Filed Vital Signs Vital Sign Reading Time Taken Comments Blood Pressure 136/80 09/04/2017 9:41 AM CDT Pulse 78 09/04/2017 9:41 AM CDT Temperature - - Respiratory Rate - - Oxygen Saturation 95% 09/04/2017 9:41 AM CDT Inhaled Oxygen Concentration - - Weight 64.9 kg (143 lb) 09/04/2017 9:41 AM CDT Height 175.3 cm (5' 9 ) 09/04/2017 9:41 AM CDT Body Mass Index 21.12 09/04/2017 9:41 AM CDT documented in this encounter Progress Notes * Edilberto Oscar MD - 09/04/2017 9:45 AM CDT [facility] DATE OF VISIT: 09/04/2017 CHIEF COMPLAINT Chief Complaint Patient presents with ??? New Patient HFU on PAF, HTN HPI Chasidy Thomas is a 72 y.o. [...] her age. She returns today for follow-up. She returns without any complaints of chest pain, shortness breath, syncope, presyncope, paroxysmalnocturnal dyspnea, orthopnea, edema or palpitations. No bleeding problems MEDICAL HISTORY History reviewed. Was PAF, rheumatoid arthritis, hypertension Social History Substance Use Topics ??? Smoking status: Never Smoker ??? Smokeless tobacco: Never Used ??? Alcohol use 1.2 oz/week 2 Cans of beer per week Comment: 2 beers a day History reviewed. No pertinent family history. MEDICATIONS Home Medications ALPRAZOLAM (XANAX) 0.5 MG TABLET ASCORBIC ACID (ASCORBIC ACID WITH RUPESH HIPS) 500 MG TABLET,CHEWABLE ATORVASTATIN (LIPITOR) 20 MG TABLET CALCIUM CITRATE-VITAMIN D3 200 MG CALCIUM -250 UNIT TABLET 1 tablet. LEFLUNOMIDE (ARAVA) 10 MG TABLET LYSINE 500 MG TABLET 500 mg. OMEPRAZOLE (PRILOSEC) 40 MG CAPSULE Take 40 mg by mouth daily. POTASSIUM 99 MG TABLET Take by mouth. PREDNISONE (DELTASONE) 5 MG TABLET TRIAMTERENE-HYDROCHLOROTHIAZIDE (DYAZIDE) 37.5-25 MG PER CAPSULE Take 1 capsule by mouth every morning. XARELTO 20 MG TABLET ALLERGIES No Known Allergies REVIEW OF SYSTEMS Review of Systems Constitution: Negative for weakness, weight gain and weight loss. HENT: Negative [...] cold intolerance, heat intolerance and polyuria. Hematologic/Lymphatic: Does not bruise/bleed easily. Skin: Negative for color change and rash. Musculoskeletal: Negative for falls, joint pain, joint swelling and myalgias. Gastrointestinal: Negative for abdominal pain, heartburn, nausea and vomiting. Genitourinary: Negative for dysuria. Neurological: Negative for dizziness, focal weakness, headaches, light- headedness and numbness. Psychiatric/Behavioral: Negative for depression. The patient is not nervous/anxious. Allergic/Immunologic: Negative for environmental allergies. PHYSICAL EXAM Blood pressure 136/80, pulse 78, height 175.3 cm (5' 9 ), weight 64.9 kg (143 lb), SpO2 95 %. Body mass index is 21.12 kg/m??. Physical Exam Constitutional: She is oriented [...] unspecified site, unspecified rheumatoid factor presence (CMS/HCC) Chronic anticoagulation No bleeding problems PLAN/RECOMMENDATIONS No changes to her cardiac regimen at this point. I will see her back in 3 months or sooner as clinically indicated. Edilberto Oscar MD, [facility] documented in this encounter Miscellaneous Notes * Addendum Note - Genesis Curiel MA - 09/04/2017 9:45 AM CDTAddended by: GENESIS CURIEL on: 09/04/2017 01:31 PM Modules accepted: Orders documented in this encounter Plan of Treatment Not on file documented as of this encounter Procedures Procedure Name Priority Date/Time Associated Diagnosis Comments POCT LIPID PANEL Routine 09/04/2017 1:30 PM CDT PAF (paroxysmal atrial fibrillation) (CMS/HCC) documented in this encounter Results * POCT lipid panel (09/04/2017 1:30 PM CDT) Cholesterol, POC 191 mg/dL HDL, POC 92 mg/dL Triglycerides, POC 117 mg/dL LDL Cholesterol POC 75 mg/dL Chol/HDL Ratio, POC 2.1 Non-HDL Cholesterol, POC 99 mg/dL Cholesterol Total, POC 191 mg/dL Blood specimen (specimen) 09/04/2017 1:30 PM CDT us Edilberto Oscar MD POINT OF CARE TEST ORDERA BLES Final Result documented in this encounter Visit Diagnoses Diagnosis PAF (paroxysmal atrial fibrillation) (CMS/HCC) (HCC)- Primary Atrial fibrillation Essential hypertension Unspecified essential hypertension Rheumatoid arthritis, involving unspecified site, unspecified rheumatoid factor presence Chronic anticoagulation Encounter for long-term (current) use of anticoagulants documented in this encounter Historical Medications * This list may reflect changes made after this encounter. calcium citrate-vitamin D3 200 mg calcium -250 unit tablet 1 tablet ascorbic acid (VITAMIN C) 500 mg tablet,chewable omeprazole (PriLOSEC) 40 mg capsule Take 1 capsule (40 mg total) by mouth daily leflunomide (ARAVA) 10 mg tabletIndications :Rheumatoid Arthritis Take 1 tablet (10 mg total) by mouth daily 08/17/2017 predniSONE (DELTASONE) 5 mg tablet 5 mg alt with 10 mg every other day 07/02/2017 atorvastatin (LIPITOR) 20 mg tablet Take 1 tablet (20 mg total) by mouth daily 08/25/2017 ALPRAZolam (XANAX) 0.5 mg tablet Take 1 tablet (0.5 mg total) by mouth nightly 08/17/2017 potassium 99 mg tablet Take by mouth. 05/29/2020 lysine 500 mg tablet 500 mg. 05/29/2020 triamterene-hydro CHLOROthiazide (DYAZIDE) 37.5-25 mg per capsule Take 1 capsule by mouth every morning. 01/18/2019 XARELTO 20 mg tablet 08/14/2017 12/10/2017 added in this encounter Care Teams Medical Advisor Relationship Specialty Start Date End Date Cristobal Olivas MD [address] [place] [address] PCP - General Surgery 09/04/17 07/12/18 documented as of this encounter
--- OUTSIDE RECORDS SUMMARY | 2024-04-12 04:10 | XMS_ITS | Encounter Summary ---
Author Organization [facility] Address [address] [place] [address] Care Team Providers Care Assistant Accounting Manager Name Role Phone Jason Isaacs MD Primary Care Provider [phone] Encounter Details Date Type Department Care Team (Late st Contact Info) Description 11/09/2018 Telephone [facility] [address] [address] [address] [place] [address] Edilberto Oscar MD [address] [address] Social History Tobacco Use Types Packs/Day Years Used Date Smoking Tobacco: Former Cigarettes Q uit: 07/13/1998 Smokeless Tobacco: Never Alcohol Use Standard Drinks/Week Comments Yes 2 (1 standard drink = 0.6 oz pur e alcohol) 2 beers a day Comments Unknown Sex and Gender Information Value Date Recorded Sex Assigned at Not on file Legal Sex Female 12:00 AM 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 Edwards's office. * Telephone Encounter - Africa Stewart RN - 11/09/2018 11:38 AM CDT Will review with Dr. Oscar. * Telephone Encounter - Yane Gautam - 11/09/2018 9:40 AM CDT Pt is scheduled for a D/C and a hysteroscopy 12/[address] Montanez. Pt was told to contact [facility] regarding cardiac clearance and blood thinner hold. cb [phone] documented in this encounter Plan of Treatment Not on file documented as of this encounter Visit Diagnoses Not on filedocumented in this encounter Care Teams Assistant Accounting Manager Relationship Specialty Start Date End Date Jason Isaacs MD PCP - General Internal Medicine 07/13/18 documented as of this encounter
--- OUTSIDE RECORDS SUMMARY | 2024-04-12 04:10 | XMS_ITS | Encounter Summary ---
Author Organization [facility] Address [address] [place] [address] Care Team Providers Care Investment Officer Name Role Phone Jason Isaacs MD Primary Care Provider [phone] Encounter Details Date Type Department Care Team (Late st Contact Info) Description 04/07/2019 Telephone [facility] [address] [place] [address] Edilberto Oscar MD [address] [id number] Social History Tobacco Use Types Packs/Day Years Used Date Smoking Tobacco: Former Cigarettes Q uit: 07/13/1998 Smokeless Tobacco: Never Alcohol Use Standard Drinks/Week Comments Yes 2 (1 standard drink = 0.6 oz pur e alcohol) 2 beers a day Comments Unknown Sex and Gender Information Value Date Recorded Sex Assigned at Not on file 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 Y WHEEL MOLDER * Telephone Encounter - Ninfa Pascal - 04/07/2019 1:42 PM CST Pt called to request samples of the xarelto 15 mg tabs. cb [phone] Y WHEEL MOLDER documented in this encounter Plan of Treatment Not on file documented as of this encounter Visit Diagnoses Not on filedocumented in this encounter Care Teams Investment Officer Relationship Specialty Start Date End Date Jason Isaacs MD PCP - General Internal Medicine 07/13/18 documented as of this encounter
--- OUTSIDE RECORDS SUMMARY | 2024-04-12 04:10 | XMS_ITS | Encounter Summary ---
Author Organization [facility] Address [address] [place] [address] Care Team Providers Care Instructor Bridge Name Role Phone No, Physician Primary Care Provider [phone] Reason for Visit * (Routine) - Closed Specialty Diagnoses / Procedures Referred By Contac t Referred To Contact Diagnoses PAF (paroxysmal atrial fibrillation) (CMS/HCC) (HCC) Procedures NM MPI SPECT (Rest and/or Stress) Multiple Studies Jeane Gill MD Phone: tel: fax: Referral ID Status Reason Start Date Expiration Date Visits Re quested Visits Authorized [id number] Closed 07/07/2017 01/03/2018 1 1 Encounter Details Date Type Department Care Team (Latest Contact Info) Description 07/24/2017 10:15 AM CDT Ancillary Procedure 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 Gender Identity Not on file Sexual Orientation Not on file documented as of this encounter Plan of Treatment Not on file documented as of this encounter Procedures Procedure Name Priority Date/Time Associated Diagnosis Comments NM MPI SPECT (REST AND/OR STRESS) MULTIPLE STUDIES Schedule Routine, Read Routine (OP Routine) 07/24/2017 10:57 AM CDT PAF (paroxysmal atrial fibrillation) (CMS/HCC) documented in this encounter Results * NM MPI SPECT (Rest and/or Stress) Multiple Studies (07/24/2017 10:57 AM CDT) Anatomical Region Laterality Modality Body N/A Nuclear Medicine 07/24/2017 9:48 AM CDT Narrative 07/24/2017 4:17 PM CDT [facility] [address] [address], [place] [address] [address] [facility] [address], [place] [address] P:[phone] P:[phone] MPI Imaging Report Patient Name: CHASIDY VELEZ K : 1945 Study Date: 07/24/2017 9:48:21 AM Gender: F Tech: Graciela Baires [facility] Location: [facility] Ref.Physician: JEANE GILL Height(Cm): 175.2 BSA: Weight(Kg): 71.8 BMI: 23.39Order Physician: JEANE GILL Physician: Referring Physician: Dr. Olivas. HCG Physician: Chema Gill M.D. Interpreting Physician: Chema Gill M.D. Stress Supervision: Chema Gill M.D. Procedures: Exercise SPECT Report: Myocardial perfusion imaging with Tc99m Sestamibi SPECT at rest and stress post exercise using the Carlos Manuel protocol. Indications: Paroxysmal Atrial Fibrillation, Dizziness, Hypertension, Family Hx CAD, High Cholesterol, Smoker, and Palpitations. Findings: Procedure: One day rest/stress protocol was used. Tc99m Sestamibi injected IV at rest was 10.8 millicuries. 33.0 millicuries of Tc99m Sestamibi injected IV at peak stress. Patient had no symptoms during stress test. Baseline heart rate was 85 BPM. Peak heart rate was 149 BPM. Max projected heart rate was 148. Percent predicted max heart rate achieved was 101 %. Exercise Time 3:00 min. Baseline blood pressure was 160/80 mmHg. Peak blood pressure 200/90 mmHg. Termination: Fatigue. Dyspnea. Exercise Tolerance: Poor for patient's age. Resting ECG: Normal sinus rhythm. Post ECG: No diagnostic ST changes. Arrhythmia: one PVC. Perfusion Findings: Normal perfusion imaging. No definite fixed or reversible defects. Technical quality of study is excellent. Prone imaging was not performed. Left ventricle cavity size at rest is normal. Left ventricle cavity size with stress is unchanged. A TID of 0.69 was automatically calculated. LV Function: Global left ventricular function is normal. Left Ventricular Ejection Fraction is 75 %. Conclusions: Negative myocardial perfusion imaging without infarct or ischemia. Global left ventricular function is normal. Left Ventricular Ejection Fraction is 75 %. Negative EKG portion of stress test. Hypertensive BP response to exercise and poor exercise capacity for age. Electronically Signed By: Jeane Gill MD 2017-07-24 16:17:27 CDT Electronically Signed By: Jeane Gill MD 2017-07-24 16:17:28 CDT CC: CC: Procedure Note Jeane Gill MD - 07/24/2017 [facility] [address], [place] [address] [address] [facility] [address] [facility] [address] [address] P:[phone] P:[phone] MPI Imaging Report Patient Name: CHASIDY VELEZ KPatient ID: [id number] : [id number] Date: 07/24/2017 9:48:21 AM Gender: FAccession #: [id number] Tech: Graciela Baires [facility] Ref.Physician: JEANE GILLHeight(Cm): 175.2 BSA: Weight(Kg): 71.8 BMI: 23.39Order Physician: JEANE GILL Physician: Referring Physician: Dr. Olivas. HCG Physician: Chema Gill M.D. Interpreting Physician: Chema Gill M.D. Stress Supervision: Chema Gill M.D. Procedures: Exercise SPECT Report: Myocardial perfusion imaging with Tc99m Sestamibi SPECT at rest and stresspost exercise using the Carlos Manuel protocol. Indications: Paroxysmal Atrial Fibrillation, Dizziness, Hypertension, Family Hx CAD,High Cholesterol, Smoker, and Palpitations. Findings: Procedure: One day rest/stress protocol was used. Tc99m Sestamibi injected IV at restwas 10.8 millicuries. 33.0 millicuries of Tc99m Sestamibi injected IV at peakstress. Patient had no symptoms during stress test. Baseline heart rate was 85 BPM. Peak heartrate was 149 BPM. Max projected heart rate was 148. Percent predicted max heart rateachieved was 101 %. Exercise Time 3:00 min. Baseline blood pressure was 160/80 mmHg. Peakblood pressure 200/90 mmHg. Termination: Fatigue. Dyspnea. Exercise Tolerance: Poor for patient's age. Resting ECG: Normal sinus rhythm. Post ECG: No diagnostic ST changes. Arrhythmia: one PVC. Perfusion Findings: Normal perfusion imaging. No definite fixed or reversible defects.Technical quality of study is excellent. Prone imaging was not performed. Left ventricle cavitysize at rest is normal. Left ventricle cavity size with stress is unchanged. A TID of0.69 was automatically calculated. LV Function: Global left ventricular function is normal. Left Ventricular EjectionFraction is 75 %. Conclusions: Negative myocardial perfusion imaging without infarct or ischemia. Global left ventricular function is normal. Left Ventricular EjectionFraction is 75 %. Negative EKG portion of stress test. Hypertensive BP response to exercise and poor exercise capacity for age. Electronically Signed By: Jeane Gill MD 2017-07-24 16:17:27 CDT Electronically Signed By: Jeane Gill MD 2017-07-24 16:17:28 CDT CC: CC: Jeane Gill MD IMG NM PROCEDURES Final R esult documented in this encounter Visit Diagnoses Diagnosis PAF (paroxysmal atrial fibrillation) (CMS/HCC) (HCC) Atrial fibrillation documented in this encounter Administered Medications Inactive Administered Medications - up to 3 most recent administrations Medication Order MAR Action Action Date Dose Rate Site tc-99m sestamibi unit dose injection 10.8 millicurie 10.8 millicurie, intravenous, Once in imaging, radiopharmaceutical, Starting on Thu07/24/17 at 0949, For 1 dose, Indications: Diagnostic RadiographyIndications:Ankita gnostic Radiography Given 07/24/2017 9:49 AM CDT 10.8 millicuries tc-99m sestamibi unit dose injection 33 millicurie 33 millicurie, intravenous, Once in imaging, radiopharmaceutical, Starting on Thu07/24/17 at 1057, For 1 dose, Indications: Diagnostic RadiographyIndications:Ankita gnostic Radiography Given 07/24/2017 10:57 AM CDT 33 millicuries documented in this encounter Care Teams Instructor Bridge Relationship Specialty Start Date End Date No, Physician PCP - General 07/07/17 09/03/17 documented as of this encounter
--- OUTSIDE RECORDS SUMMARY | 2024-04-12 04:10 | XMS_ITS | Encounter Summary ---
Author Organization [facility] Address [address] [place] [address] Care Team Providers Care Aircraft Hydraulic Equipment Mechanic Name Role Phone No, Physician Primary Care Provider Encounter Details Date Type Department Care Team ([facility] st Contact Info) Description 07/17/2017 Orders Only [facility] Cardiology [address] [place] [address] Provider, Aarti, [address] [place], [place] [id number] Social History Tobacco Use Types Packs/Day Years Used Date Smoking Tobacco: Never Assessed Comments Unknown Sex and Gender Information Value Date Recorded Sex Assigned at Not on file 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 Gender Identity Not on file Sexual Orientation Not on file documented as of this encounter Plan of Treatment Not on file documented as of this encounter Procedures Procedure Name Priority Date/Time Associated Diagnosis Comments TRANSTHORACIC ECHO (TTE) COM PLETE W DOPPLER/CF Routine 07/07/2017 documented in this encounter Results * Transthoracic Echo Complete W Doppler/CF (07/07/2017) Anatomical Region Laterality Modality Ultrasound us Historical Provider MD MOSHER ECHO PROCEDURES Final Result documented in this encounter Visit Diagnoses Not on filedocumented in this encounter Care Teams Aircraft Hydraulic Equipment Mechanic Relationship Specialty Start Date End Date No, Physician PCP - General 07/07/17 09/03/17 documented as of this encounter
--- OUTSIDE RECORDS SUMMARY | 2024-04-12 04:10 | XMS_ITS | Encounter Summary ---
Author Organization [facility] Address [address] [place] [address] Care Team Providers Care Major League Baseball Umpire Name Role Phone Jason Isaacs MD Primary Care Provider [phone] Reason for Visit * Reason Comments Atrial Fibrillation Hypertension 6 mo f/u Encounter Details Date Type Department Care Team (Latest Contact Info) Description 01/18/2019 10:30 AM CDT Office Visit [facility] [address] [facility] [address] [place] [address] Edilberto Oscar MD [facility] [place] [id number] Rheumatoid arthritis, involving unspecified site, unspecified rheumatoid factor presence (CMS/HCC) (Primary Dx); PAF (paroxysmal atrial fibrillation) (CMS/HCC); Essential hypertension; Chronic anticoagulation Social History Tobacco Use Types Packs/Day Years Used Date Smoking Tobacco: Former Cigarettes Q uit: 07/13/1998 Smokeless Tobacco: Never Alcohol Use Standard Drinks/Week Comments Yes 2 (1 standard drink = 0.6 oz pur e alcohol) 2 beers a day Comments Unknown Sex and Gender Information Value Date Recorded Sex Assigned at Not on file 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 Gender Identity Not on file Sexual Orientation Not on file documented as of this encounter Last Filed Vital Signs Vital Sign Reading Time Taken Comments Blood Pressure 164/80 01/18/2019 10:27 AM CDT Pulse 76 01/18/2019 10:27 AM CDT Temperature - - Respiratory Rate - - Oxygen Saturation 100% 01/18/2019 10:27 AM CDT Inhaled Oxygen Concentration - - Weight 59 kg (130 lb) 01/18/2019 10:27 AM CDT Height 175.3 cm (5' 9 ) 01/18/2019 10:27 AM CDT Body Mass Index 19.2 01/18/2019 10:27 AM CDT documented in this encounter Ordered Prescriptions Prescription Sig Dispense Quantity Refills Last Filled Start Date End Date rivaroxaban (XARELTO) 15 mg tablet Take 1 tablet (15 mg total) by mouth daily 30 tablet 11 01/18/2019 03/25/2020 documented in this encounter Progress Notes * Edilberto Oscar MD - 01/18/2019 10:30 AM CDT [facility] DATE OF VISIT: 01/18/2019 CHIEF COMPLAINT Chief Complaint Patient presents with ??? Atrial Fibrillation ??? Hypertension 6 mo f/u HPI Chasidy Thomas is a 73 y.o. female with atrial fibrillation. I saw [...] She returns today for follow-up. Follow-up note 01/14/2019: She returns without any complaints of chest pain, shortness breath, syncope, presyncope, paroxysmal nocturnal dyspnea, orthopnea, unusual edema or palpitations. No bleeding problems MEDICAL HISTORY History reviewed. Was PAF, rheumatoid arthritis, hypertension Social History Tobacco Use ??? Smoking status: Former Smoker Types: Cigarettes Last attempt to quit: 07/13/1998 Years since quittin.5 ??? Smokeless tobacco: [...] MG CALCIUM -250 UNIT TABLET 1 tablet. HYDROCHLOROTHIAZIDE (HYDRODIURIL) 25 MG TABLET Take 25 [...] TABLET Take 50 mg by mouth daily TURMERIC ROOT EXTRACT 500 MG CAPSULE Take [...] for falls, joint swelling and myalgias. Gastrointestinal: Negative for abdominal pain, heartburn, nausea and vomiting. Genitourinary: Negative for dysuria. Neurological: Negative for dizziness, focal weakness, headaches, light- headedness, numbness and weakness. Psychiatric/Behavioral: Negative for depression. The patient is not nervous/anxious. Allergic/Immunologic: Negative for environmental allergies. PHYSICAL EXAM Blood pressure 164/80, pulse 76, height 175.3 cm (5' 9 ), weight 59 kg (130 lb), SpO2 100 %. Body mass index is 19.2 kg/m??. Physical Exam Constitutional: She is oriented [...] creatinine clearance of less than 50 PLAN/RECOMMENDATIONS She is stable. I recommend that she check her blood pressure home. Call if consistently over 140 systolic. Otherwise she should continue her current drug regimen without change I will see her back in6 months or sooner as clinically indicated Edilberto Oscar MD, [facility] documented in this encounter Miscellaneous Notes * Addendum Note - Mame Escobar MA - 01/18/2019 10:30 AM CDTAddended by: MAME ESCOBAR on: 01/18/2019 10:56 AM Modules accepted: Orders documented in this encounter Plan of Treatment Not on file documented as of this encounter Visit Diagnoses Diagnosis Rheumatoid arthritis, involving unspecified site, unspecified rheumatoid factor presence- Primary PAF (paroxysmal atrial fibrillation) (CMS/HCC) (HCC) Atrial fibrillation Essential hypertension Unspecified essential hypertension Chronic anticoagulation Encounter for long-term (current) use of anticoagulants documented in this encounter Discontinued Medications Medication Sig Discontinue Reason Start Date End Da te triamterene-hydroCHLOROt hiazide (DYAZIDE) 37.5-25 mg per capsule Take 1 capsule by mouth every morning. Alternate therapy 01/18/2019 Lactobac. rhamnosus GG-inulin (CULTURELLE PROBIOTICS) 10 billion cell -200 mg capsule Take 1 capsule by mouth daily Therapy completed 01/18/2019 rivaroxaban (XARELTO) 15 mg tablet Take 1 tablet (15 mg total) by mouth daily Reorder 09/21/2018 01/18/2019 documented as of this encounter Historical Medications * This list may reflect changes made after this encounter. magnesium oxide (MAG-OX) 400 mg (241.3 mg elemental magnesium) tablet Take 1 tablet (400 mg total) by mouth 2 (two) times a day 99 12/29/2018 spironolactone (ALDACTONE) 25 mg tablet Take 25 mg by mouth daily 0 12/10/2018 11/15/2020 hydroCHLOROthiazi de (HYDRODIURIL) 25 mg tablet Take 25 mg by mouth daily 2 10/26/2018 11/15/2020 added in this encounter Care Teams Major League Baseball Umpire Relationship Specialty Start Date End Date Jason Isaacs MD PCP - General Internal Medicine 07/13/18 documented as of this encounter
--- OUTSIDE RECORDS SUMMARY | 2024-04-12 04:10 | XMS_ITS | Encounter Summary ---
Author Organization [facility] Medical Group Address [address] [place] [address] Care Team Providers Care Product Development Ecologist Name Role Phone Cristobal Olivas MD Primary Care Provider [phone] Encounter Details Date Type Department Care Team (Late st Contact Info) Description 10/16/2017 Telephone [facility] [address] [facility] [address], [place] [address] Edilberto Oscar MD [address] [place] [address] [address] [place], [place] [id number] Social History Tobacco Use Types Packs/Day Years Used Date Smoking Tobacco: Never Smokeless Tobacco: Never Alcohol Use Standard Drinks/Week Comments Yes 2 (1 standard drink = 0.6 oz pur e alcohol) 2 beers a day Comments Unknown Sex and Gender Information Value Date Recorded Sex Assigned at Not on file Legal 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 She was agreeable, thought she should mention the swelling. Patient said edema is minor, she feels fine, no SOB, no other complaints. Pt said her eye surgeon told her that she could continue Xarelto for cataract surgery, but pt was unsure. told her that anticoagulation is not routinely held for cataract surgery so she will continue the med perioperatively. * Telephone Encounter - Yoselyn Castellon - 10/16/2017 8:45 AM CDT Pt called because she's having swelling in her legs and feet towards the end of the day, pt will like a call back # [phone]. Pt is also needing a letter faxed over to Dr. Dwayne Arrieta stating that its ok for her to hold off on her Xarelto for one day, pt suppose to have cataract surgery on November 05. fax # [phone], Phone number [phone]. documented in this encounter Plan of Treatment Not on file documented as of this encounter Visit Diagnoses Not on filedocumented in this encounter Care Teams Product Development Ecologist Relationship Specialty Start Date End Date Cristobal Olivas MD [address] [place] [address] PCP - General Surgery 09/04/17 07/12/18 documented as of this encounter
--- OUTSIDE RECORDS SUMMARY | 2024-04-12 04:10 | XMS_ITS | Encounter Summary ---
Author Organization [facility] Medical [facility] Address [address] [facility] [address] [place] [id number] Care Team Providers Care Pressurizer Name Role Phone Cristobal Olivas MD Primary Care Provider [phone] Reason for Visit * Reason Comments Follow-up No problem Encounter Details Date Type Department Care Team ([facility] Contact Info) Description 01/12/2018 11:30 AM CDT Office Visit [facility] [address] [facility] [address] [facility] [[email or web address] [address] [place] [address] Cathie Brody NP [address] [facility] [address] [place] [address] PAF (paroxysmal atrial fibrillation) (CMS/HCC) (Primary Dx); Essential hypertension; Chronic anticoagulation Social History Tobacco Use Types Packs/Day Years Used Date Smoking Tobacco: Never Smokeless Tobacco: Never Tobacco Cessation:Counseling Given: Yes Alcohol Use Standard Drinks/Week Comments Yes 2 (1 standard drink = 0.6 oz pur e alcohol) 2 beers a day Comments Unknown Sex and Gender Information Value Date Recorded Sex Assigned at Not on file Legal 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 Female 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 Gender Identity Not on file Sexual Orientation Not on file documented as of this encounter Last Filed Vital Signs Vital Sign Reading Time Taken Comments Blood Pressure 144/78 01/12/2018 12:13 PM CDT Pulse 69 01/12/2018 12:13 PM CDT Temperature - - Respiratory Rate - - Oxygen Saturation 95% 01/12/2018 12:13 PM CDT Inhaled Oxygen Concentration - - Weight 61.7 kg (136 lb) 01/12/2018 12:13 PM CDT Height 175.3 cm (5' 9 ) 01/12/2018 12:13 PM CDT Body Mass Index 20.08 01/12/2018 12:13 PM CDT documented in this encounter Progress Notes * Cathie Brody NP - 01/12/2018 11:30 AM CDT [facility] Date of Visit: 01/12/2018 Patient ID: Chasidy Thomas 1945 Chief Complaint: Chasidy Thomas is a 72 y.o. female who is a fairly newly established patient of Dr. Oscar here for 3 month follow-up for atrial fibrillation. History of Present Illness: Chasidy Thomas is a 72 y.o. female [...] her age. She returns today for follow-up. Hospital follow-up visit 09/04/2017: She returns without any complaints of chest pain, shortness breath, syncope, presyncope, paroxysmal nocturnal dyspnea, orthopnea, edema or palpitations. No bleeding problems 3-month follow-up visit 01/12/2018 with FLUOROSCOPE OPERATOR: She has no complaints or concerns today. She has no recurrence of racing heartbeats like she experienced when she was first diagnosed with AFib with RVR. She has been compliant with Xarelto. She has does notice she bruises easily and bleeds if she scratches herself on her hands and/or forearms but otherwise denies any signs or symptoms of internal bleeding. Records that I personally reviewed on the day of this visit include: (the interpretation is outlined in the chief complaint above) 09/04/[address] Oscar I have also reviewed: allergies, current medications, past family history, past medical history, past social history, past surgical history and problem list Review of Systems Constitution: Positive for weight loss. Negative for diaphoresis, fever, malaise/fatigue and weightgain. HENT: Negative for hearing loss. Eyes: Negative for visual disturbance. Cardiovascular: Positive for leg swelling. Negative for chest pain, claudication, dyspnea on exertion, orthopnea, palpitations, paroxysmal nocturnal dyspnea and syncope. Respiratory: Negative for cough, hemoptysis, shortness of breath, snoring and wheezing. Hematologic/Lymphatic: Bruises/bleeds easily. Skin: Negative for poor wound healing and rash. No easy bruising. No bleeding problems. Musculoskeletal: Positive for joint pain. Negative for myalgias. Joint pain secondary to RA; right knee pain with walking. Gastrointestinal: Positive for heartburn. Negative for nausea and vomiting. No reflux Genitourinary: Negative for hematuria. Neurological: Negative for dizziness, headaches and light-headedness. Psychiatric/Behavioral: Negative for depression. The patient is not nervous/anxious. Vital Signs: BP 144/78 (BP Location: Right arm, Patient Position: Sitting) Pulse 69 Ht 175.3 cm (5' 9 ) Wt61.7 kg (136 lb) SpO2 95% BMI 20.08 kg/m?? Physical Exam Constitutional: She is oriented to person, place, and time. She appears well- developed and well-nourished. No distress. Pleasant woman. HENT: Head: Normocephalic and atraumatic. Nose: Nose normal. Mouth/Throat: Mucous membranes are normal. Eyes: Pupils are equal, round, and reactive to light. Conjunctivae and EOM are normal. No scleral icterus. Neck: Normal range of motion. No JVD present. No tracheal deviation present. Cardiovascular: Normal rate, regular rhythm and normal heart sounds. No murmur heard. Pulmonary/Chest: Effort normal and breath sounds normal. No respiratory distress. Abdominal: Soft. Bowel sounds are normal. There is no tenderness. Musculoskeletal: Normal range of motion. She exhibits no edema. Neurological: She is alert and oriented to person, place, and time. Skin: Skin is warm and dry. Ecchymosis noted. Bilateral hands and forearms Psychiatric: She has a normal mood and affect. Allergies Allergen Reactions ??? Sulfasalazine Nausea only Current Outpatient Prescriptions: ??? ALPRAZolam (XANAX) 0.5 mg tablet, , Disp: , Rfl: ??? ascorbic acid (ascorbic acid with trish hips) 500 mg tablet,chewable, , Disp: , Rfl: ??? atorvastatin (LIPITOR) 20 mg tablet, , Disp: , Rfl: ??? calcium citrate-vitamin D3 200 mg calcium -250 unit tablet, 1 tablet., Disp: , Rfl: ??? leflunomide (ARAVA) 10 mg tablet, , Disp: , Rfl: ??? lysine 500 mg tablet, 500 mg., Disp: , Rfl: ??? omeprazole (PriLOSEC) 40 mg capsule, Take 40 mg by mouth daily., Disp: , Rfl: ??? potassium 99 mg tablet, Take by mouth., Disp: , Rfl: ??? predniSONE (DELTASONE) 5 mg tablet, , Disp: , Rfl: ??? triamterene-hydroCHLOROthiazide (DYAZIDE) 37.5-25 mg per capsule, Take 1 capsule by mouth everymorning., Disp: , Rfl: ??? XARELTO 20 mg tablet, Take 1 tablet (20 mg total) by mouth daily., Disp: 30 tablet, Rfl: 5 Assessment: Diagnoses and all orders for this visit: PAF (paroxysmal atrial fibrillation) (CMS/HCC) (Primary) Essential hypertension Chronic anticoagulation Plan/Recommendations: Patient was diagnosed with paroxysmal atrial fibrillation earlier this year but has had no known recurrence since hospital discharge. She is not requiring any rate controlling medication. She is tolerating anticoagulation with Xarelto. Blood pressure reading in the office today is fair. This is managed by her PCP. Counseling performed at this visit included bleeding risks associated with systemic oral anticoagulation and when to seek emergency care. Return to the office to see Dr. Oscar in 6 months. Call us sooner with questions or concerns. TATYANA Noonan- Nurse Practitioner with [facility] This note is dictated and transcribed using [employer] Fluency Direct Software. Gravel Machine Operator variancesmay occur. Despite proofreading, typographical errors may occur. documented in this encounter Plan of Treatment Not on file documented as of this encounter Visit Diagnoses Diagnosis PAF (paroxysmal atrial fibrillation) (CMS/HCC) (HCC)- Primary Atrial fibrillation Essential hypertension Unspecified essential hypertension Chronic anticoagulation Encounter for long-term (current) use of anticoagulants documented in this encounter Care Teams Pressurizer Relationship Specialty Start Date End Date Cristobal Olivas MD [address] [place] [address] PCP - General Surgery 09/04/17 3 documented as of this encounter
--- OUTSIDE RECORDS SUMMARY | 2024-04-12 04:10 | XMS_ITS | Encounter Summary ---
Author Organization [facility] Address [address] [place] [address] Care Team Providers Care Suture Gauger Name Role Phone No, Physician Primary Care Provider [phone] Encounter Details Date Type Department Care Team ([facility] st Contact Info) Description 07/27/2017 Telephone [facility] [address] [facility] [address] [id number] Edilberto Oscar MD [address] [place] [address] [address] [place] [address] Social History Tobacco Use Types Packs/Day Years Used Date Smoking Tobacco: Never Assessed Comments Unknown Sex and Gender Information Value Date Recorded Sex Assigned at Not on file Legal 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 documented in this encounter Plan of Treatment Not on file documented as of this encounter Visit Diagnoses Not on filedocumented in this encounter Care Teams Suture Gauger Relationship Specialty Start Date End Date No, Physician PCP - General 07/07/17 09/03/17 documented as of this encounter
--- OUTSIDE RECORDS SUMMARY | 2024-04-12 04:10 | XMS_ITS | Encounter Summary ---
Author Organization [facility] Care Team Providers Care Ship Carpenter Name Role Phone Jason Isaacs MD Primary Care Provider [phone] Encounter Details Date Type Department Care Team (Latest Contact Info) Description 01/18/2019 Travel Social History Tobacco Use Types Packs/Day Years Used Date Smoking Tobacco: Former Cigarettes Q uit: 07/13/1998 Smokeless Tobacco: Never Alcohol Use Standard Drinks/Week Comments Yes 2 (1 standard drink = 0.6 oz pur e alcohol) 2 beers a day Comments Unknown Sex and Gender Information Value Date Recorded Sex Assigned at Not on file 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
--- OUTSIDE RECORDS SUMMARY | 2024-04-12 04:10 | XMS_ITS | Encounter Summary ---
Author Organization [facility] Address [address] [facility] [address] [place] [address] Care Team Providers Care Field Operations Farm Manager Name Role Phone Jason Isaacs MD Primary Care Provider [phone] Encounter Details Date Type Department Care Team (Late st Contact Info) Description 07/19/2018 Telephone [facility] [address] [facility] [address] [place] [address] Edilberto Oscar MD [address] [address] Social History Tobacco Use Types Packs/Day Years Used Date Smoking Tobacco: Former Cigarettes Q uit: 07/13/1998 Smokeless Tobacco: Never Alcohol Use Standard Drinks/Week Comments Yes 2 (1 standard drink = 0.6 oz pur e alcohol) 2 beers a day Comments Unknown Sex and Gender Information Value Date Recorded Sex Assigned at Not on file Legal Sex Female 12:00 AM 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 Gender Identity Not on file Sexual Orientation Not on file documented as of this encounter Miscellaneous Notes * Telephone Encounter - Genesis Hilario MA - 07/26/2018 9:51 AM CDT Spoke with pt, she voiced understanding that her samples are ready for her at the javascript front end developer * Telephone Encounter - Yoselyn Bunch - 07/26/2018 9:02 AM CDT Pt called requesting to pharmacy picking tech samples of Xarelto 15 mg today around 10-11 am, pt cb [phone] * Telephone Encounter - Nati Quiroz RN - 07/20/2018 10:20 AM CDT Called pt , she said Dr Oscar told her to call us about samples of Xarelto 15 mg, told her I will leave some samples at the javascript front end developer, she will pharmacy picking tech in a week or so. * Telephone Encounter - Yane Gautam - 07/20/2018 9:15 AM CDT Pt returned call. cb [phone] * Telephone Encounter - Nati Quiroz RN - 07/19/2018 4:[address] Oscar, Her creatinine clearance is less than 50 and therefore her Xarelto dose should be reduced from 20 mg daily down to 15 mg p.o. Daily. Spoke with spouse, he will have pt call tomorrow, She just got 90 day rx for Xarelto 20 mg. Will speak with pt tomorrow to inform her of the dose reduction. documented in this encounter Plan of Treatment Not on file documented as of this encounter Visit Diagnoses Not on filedocumented in this encounter Care Teams Field Operations Farm Manager Relationship Specialty Start Date End Date Jason Isaacs MD PCP - General Internal Medicine 07/13/18 documented as of this encounter
--- OUTSIDE RECORDS SUMMARY | 2024-04-12 04:10 | XMS_ITS | Encounter Summary ---
Author Organization [facility] Healthcare Address [address] [place] [address] Care Team Providers Care Special Collections Librarian Name Role Phone Unavailable Primary Care Provider Unavailabl e Encounter Details Date Type Department Care Team (Late st Contact Info) Description 06/13/2009 8:37 AM SAW TAILER - 06/13/2009 3:30 PM SAW TAILER Hospital Encounter [facility] Jasmina Sorenson Other nonspecific abnormal cardiovascular system function study; Other chest pain; Essential hypertension; Personal history of tobacco use, presenting hazards to health; Esophageal reflux; Pure hypercholesterolemia; Rheumatoid arthritis (HCC) Social History Tobacco Use Types Packs/Day Years Used Date Smoking Tobacco: Never Assessed Comments Unknown Sex and Gender Information Value Date Recorded Sex Assigned at Not on file Legal Sex Female 12:00 AM SAW TAILER Gender Identity Not on file Sexual Orientation Not on file documented as of this encounter Plan of Treatment Not on file documented as of this encounter Visit Diagnoses Diagnosis Other nonspecific abnormal cardiovascular system function study Other chest pain Essential hypertension Unspecified essential hypertension Personal history of tobacco use, presenting hazards to health Esophageal reflux Pure hypercholesterolemia Rheumatoid arthritis (HCC) documented in this encounter
--- OUTSIDE RECORDS SUMMARY | 2024-04-12 04:10 | XMS_ITS | Encounter Summary ---
Author Organization [facility] Address [address] [place] [address] Care Team Providers Care Solar Installer Pv Name Role Phone Cristobal Olivas MD Primary Care Provider [phone] Encounter Details Date Type Department Care Team (Late st Contact Info) Description 10/29/2017 Telephone [facility] Cardiology [address] [facility] [address] [place] [address] Edilberto Oscar MD [address] [address] Social History Tobacco Use Types Packs/Day Years Used Date Smoking Tobacco: Never Smokeless Tobacco: Never Alcohol Use Standard Drinks/Week Comments Yes 2 (1 standard drink = 0.6 oz pur e alcohol) 2 beers a day Comments Unknown Sex and Gender Information Value Date Recorded Sex Assigned at Not on file Legal Sex Female 12:00 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 Love's office with [facility] recommendations for holding Xarelto. * Telephone Encounter - Edilberto Oscar MD - 10/30/2017 8:07 AM CDT Four days is excessive. 24 hr is adequate to hold. If that is not okay with Dr. Love, patient can hold for 2 days. There is no need to hold for 4 days whatsoever * Telephone Encounter - Sowmya Reinoso RN - 10/29/2017 2:06 PM CDT Will forward to [facility] for review and recommedations * Telephone Encounter - Yane Gautam - 10/29/2017 2:00 PM CDT Tete from Dr. Love's office called to see if pt can stop her Xarelto 4 days before her colonoscopy 11/10/17 documented in this encounter Plan of Treatment Not on file documented as of this encounter Visit Diagnoses Not on filedocumented in this encounter Care Teams Solar Installer Pv Relationship Specialty Start Date End Date Cristobal Olivas MD [address] [id number] PCP - General Surgery 09/04/17 07/12/18 documented as of this encounter
--- OUTSIDE RECORDS SUMMARY | 2024-04-12 04:10 | XMS_ITS | Encounter Summary ---
Author Organization [facility] Address [address] [place] [address] Care Team Providers Care Steel Welder Name Role Phone Jason Isaacs MD Primary Care Provider [phone] Reason for Visit * Reason Comments Atrial Fibrillation 6 mo f/u Encounter Details Date Type Department Care Team (Latest Contact Info) Description 07/25/2019 10:00 AM CDT Telemedicine [facility] Cardiology [address] [facility] [address] [place] [phone] Edilberto Oscar MD [address] [id number] Chronic anticoagulation (Primary Dx); Rheumatoid arthritis, involving unspecified site, unspecified rheumatoid factor presence (CMS/HCC); Essential hypertension; PAF (paroxysmal atrial fibrillation) (CMS/HCC) Social History [...] on file Legal Sex Female 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 Gender Identity Not on file Sexual Orientation Not on file documented as of this encounter Last Filed Vital Signs Vital Sign Reading Time Taken Comments Blood Pressure 138/82 07/25/2019 10:03 AM CDT Pulse 81 07/25/2019 10:03 AM CDT Temperature - - Respiratory Rate - - Oxygen Saturation - - Inhaled Oxygen Concentration - - Weight 61.7 kg (136 lb) 07/25/2019 10:03 AM CDT Height 175.3 cm (5' 9 ) 07/25/2019 10:03 AM CDT Body Mass Index 20.08 07/25/2019 10:03 AM CDT documented in this encounter Progress Notes * Edilberto Oscar MD - 07/25/2019 10:00 AM CDT [facility] DATE OF VISIT: 07/25/2019 CHIEF COMPLAINT No chief complaint on file. HPI Chasidy Thomas is a 73 y.o. [...] better controlled with the addition of carvedilol MEDICAL HISTORY History reviewed. Was PAF, rheumatoid [...] only REVIEW OF SYSTEMS Review of Systems Cardiovascular: Negative for chest pain, dyspnea on exertion, leg swelling, near-syncope, palpitations, paroxysmal nocturnal dyspnea and syncope. PHYSICAL EXAM Blood pressure 138/82, pulse 81, weight 61.7 kg (136 lb). Body mass index is 20.08 kg/m??. Physical Exam Psychiatric: She has a normal mood and [...] anticoagulation No bleeding problems Chronic renal insufficiency: creatinine clearance of less than 50 PLAN/RECOMMENDATIONS She is stable. I recommend that she check her blood pressure home. Otherwise she should continue her current drug regimen without change I will see her back in 6 months or sooner as clinically indicated Edilberto Oscar MD, [facility] This was a telemedicine visit with Chasidy Thomas which took place via Telephone. During the visit, I was located in my office at [facility] and the patient was located in her home. The session started at 10:01 a.m. and ended at 10:07 a.m.. The patient has been informed that the visit may not be secure and acknowledged the information. I have explained the option of participating in a telephone or video visit during the - public health emergency to the patient. After being given an opportunity to ask questions about and discuss this type of visit, the patient verbally consented to proceeding with the telephone / video visit. The patient understands that this service replaces an office visit and they may be billed and/or responsible for any applicable copayments. documented in this encounter Plan of Treatment Not on file documented as of this encounter Visit Diagnoses Diagnosis Chronic anticoagulation- Primary Encounter for long-term (current) use of anticoagulants Rheumatoid arthritis, involving unspecified site, unspecified rheumatoid factor presence Essential hypertension Unspecified essential hypertension PAF (paroxysmal atrial fibrillation) (CMS/HCC) (HCC) Atrial fibrillation documented in this encounter Discontinued Medications Medication Sig Discontinue Reason Start Date End Da te turmeric root extract 500 mg capsule Take 1 capsule by mouth daily Therapy completed 07/25/2019 documented as of this encounter Historical Medications * This list may reflect changes made after this encounter. vitamin B complex capsule Take 1 capsule by mouth daily 05/29/2020 carvediloL (COREG) 3.125 mg tablet Take 3.125 mg by mouth 2 (two) times a day with meals 05/29/2020 added in this encounter Care Teams Steel Welder Relationship Specialty Start Date End Date Jason Isaacs MD PCP - General Internal Medicine 07/13/18 documented as of this encounter
--- OUTSIDE RECORDS SUMMARY | 2024-04-12 04:10 | XMS_ITS | Encounter Summary ---
Author Organization [facility] Address [address] [place] [address] Care Team Providers Care Material Loader Name Role Phone No, Physician Primary Care Provider [phone] Encounter Details Date Type Department Care Team ([facility] st Contact Info) Description 07/08/2017 Telephone [facility] [address] [address] Johana Huff RMA Social History Tobacco Use Types Packs/Day Years Used Date Smoking Tobacco: Never Assessed Comments Unknown Sex and Gender Information Value Date Recorded Sex Assigned at Not on file Legal Sex Female 12:00 AM STOCK CHASER Gender Identity Not on file Sexual Orientation Not on file documented as of this encounter Miscellaneous Notes * Telephone Encounter - Johana Huff MA - 07/10/2017 9:36 AM CDT The pt was calling to r/s her appt documented in this encounter Plan of Treatment Not on file documented as of this encounter Visit Diagnoses Not on filedocumented in this encounter Care Teams Material Loader Relationship Specialty Start Date End Date No, Physician PCP - General 07/07/17 09/03/17 documented as of this encounter
--- OUTSIDE RECORDS SUMMARY | 2024-04-12 04:10 | XMS_ITS | Encounter Summary ---
Author Organization [facility] Care Team Providers Care Poured Pipe Maker Name Role Phone Jason Isaacs MD Primary Care Provider [phone] Encounter Details Date Type Department Care Team (Latest Contact Info) Description 07/13/2018 Travel Social History Tobacco Use Types Packs/Day Years Used Date Smoking Tobacco: Former Cigarettes Q uit: 07/13/1998 Smokeless Tobacco: Never Alcohol Use Standard Drinks/Week Comments Yes 2 (1 standard drink = 0.6 oz pur e alcohol) 2 beers a day Comments Unknown Sex and Gender Information Value Date Recorded Sex Assigned at Not on file Legal Sex Female 12:00 AM TRAIN 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
--- OUTSIDE RECORDS SUMMARY | 2024-04-12 04:13 | XMS_ITS | Encounter Summary ---
Author Organization [facility] Address [address] [place] [address] Phone Care Team Providers Care Manager Resort Name Role Phone Jason Isaacs MD Primary Care Provider [phone] Encounter Details Date Type Department Care Team (Late st Contact Info) Description 03/15/2020 9:15 AM LAP WINDER Office Visit [facility] Nephrology and Hypertension [address] [place] [address], [address] [place], [place] [id number] Odin Gao MD [address] [facility], [address] [place] [address] Essential hypertension (Primary Dx); Chronic kidney disease, stage 3b; Vitamin D deficiency, not otherwise specified Social History Tobacco Use Types Packs/Day Years Used Date Smoking Tobacco: Former Smokeless Tobacco: Never Alcohol Use Standard Drinks/Week Comments Yes 2 (1 standard drink = 0.6 oz pur e alcohol) Sex and Gender Information Value Date Recorded Sex Assigned at Not on file Gender Identity Not on file Sexual Orientation Not on file documented as of this encounter Last Filed Vital Signs Vital Sign Reading Time Taken Comments Blood Pressure 138/70 03/15/2020 9:37 AM LAP WINDER Pulse 84 03/15/2020 9:37 AM LAP WINDER Temperature 36.7 ??C (98.1 ??F) 03/15/2020 9:37 AM CS T Respiratory Rate - - Oxygen Saturation - - Inhaled Oxygen Concentration - - Weight 65.3 kg (144 lb) 03/15/2020 9:37 AM LAP WINDER Height 162.6 cm (5' 4 ) 03/15/2020 9:37 AM LAP WINDER Body Mass Index 24.72 03/15/2020 9:37 AM LAP WINDER documented in this encounter Progress Notes * Odin Gao MD - 03/15/2020 9:15 AM CST Chasidy Thomas is a pleasant 74 y.o.female. Chasidy is a very pleasant lady who comes in for an elevated creatinine. She had her knee replacement and it went well. Back on the leflunomide due to arthralgias The patient has a history of chronic kidney disease with a baseline creatinine between 1.4 and 1.6. The patient has hypertension. She has had this for about 10 years. It is always been well controlled. She???s never had a stroke or a heart attack. The patient has diabetes. She doesn't check her sugars at home The patient has atrial fibrillation. This is been going on for two years. She is treated with xarelto for this. On the day of the election she felt funny and took her bp and it was 110 but HR was 150. She talked with Dr Shital aiken. He will call Dr Oscar about this The patient has rheumatoid arthritis. This is been going on for about 20 years. It has been well controlled. Past history: hypertension, atrial fibrillation, rheumatoid arthritis, chronic kidney disease. Allergies Allergen Reactions ??? Sulfasalazine Nausea Only Social History Tobacco Use ??? Smoking status: Former Smoker ??? Smokeless tobacco: Never Used Substance Use Topics ??? Alcohol use: Yes Alcohol/week: 2.0 standard drinks Types: 2 Cans of beer per week ??? Drug use: Not on file ROS Constitutional: Negative except as above Skin: Negative except as above Pulmonary: Negative except as above Urologic: Negative except as above BP 138/70 Pulse 84 Temp 98.1 ??F (36.7 ??C) Ht 5' 4 (1.626 m) Wt 144 lb (65.3 kg) BMI 24.72 kg/m?? BSA 1.72 m?? WDWN female in NAD Skin No rash Head NCAT Neck No nodes, No TMG Lungs Clear Cor RRR no rub or gallop Abd BS+ nontender and soft. Ext No edema, Psyche normal not depressed or anxious Recent Labs: 10/06/2019 Cr 1.6 10/15/2019 Cr 1.24 11/01/2019 Cr 1.6 12/07/2019 Cr 1.6, gfr 31, K 4.7, UA neg, Upro low ESR 23, FLASH neg, C' nl S+UIfx neg, K/L normal 03/08/2020 Cr 1.67, gfr 31, vit d 27,, Hb 11.2, Upro low Imaging: Renal ultrasound Wasn't done Impression: Chasidy has an elevated creatinine. 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 Control Cholesterol Check PTH/Vit D check next visit Low protein diet Avoid NSAIDs Stay well hydrated It sounds like she had afib around the election? She will call Dr Oscar about this. She is on xarelto Plan Same meds Same diet Watch the salt Get an ultrasound RTC 3 months Assessment/Plan Diagnoses and all orders for this visit: Essential hypertension Chronic kidney disease, stage 3b Vitamin D deficiency, not otherwise specified [facility] documented in this encounter Plan of Treatment Not on file documented as of this encounter Visit Diagnoses Diagnosis Essential hypertension- Primary Chronic kidney disease, stage 3b Vitamin D deficiency, not otherwise specified documented in this encounter Care Teams Manager Resort Relationship Specialty Start Date End Date Jason Isaacs MD [address] [place] [address] PCP - General Internal Medicine 10/10/19 documented as of this encounter
--- OUTSIDE RECORDS SUMMARY | 2024-04-12 04:13 | XMS_ITS | Clinical Summary ---
Author Organization [facility] Address [address] [place] [address] Phone Care Team Providers Care Foot Gatherer Name Role Phone Jason Isaacs MD Primary Care Provider [phone] Allergies Active Allergy Reactions Criticality Noted Date Comments Oxycodone Dizziness,Nausea And Vomiting,nausea,Other (see comments) High 10/18/2019 Other reaction(s): Hypotension, Hypotension, Other (See Comments), Stomach upset Other reaction(s): Nausea only Sulfasalazine Nausea Only Low 01/12/2018 Medications Medication Sig Dispensed Refills Start Date End Date Status ALPRAZolam (XANAX) 0.5 MG tablet Take 0.5 mg by mouth every night 10/05/2019 Active atorvastatin (LIPITOR) 20 MG tablet Take 20 mg by mouth 1 (one) time each day 08/23/2019 Active Calcium Citrate-Vitamin D (Calcium Citrate+D3 Petites) 200-250 MG-UNIT tablet 1 tablet Active magnesium oxide (MAG-OX) 400 MG tablet Take 1 tablet by mouth 2 (two) times a day 08/09/2019 Active omeprazole (PriLOSEC) [address] capsule 10/07/2019 Active predniSONE (DELTASONE) 5 MG tablet ALTERNATE DAILY BETWEEN TAKING 1 TABLET EVERY MORNING AND 2 TABLETS EVERY MORNING 09/30/2019 Active XARELTO 15 MG tablet Take 15 mg by mouth 1 (one) time each day 08/10/2019 Active leflunomide (ARAVA) 10 MG tablet Take 10 mg by mouth 1 (one) time each day 02/26/2020 Active ascorbic acid (VITAMIN C) 500 MG tablet Active ferrous sulfate 325 (65 Fe) MG EC tablet Take by mouth A ctive metoprolol succinate XL (TOPROL-XL) 25 MG 24 hr tablet Take 12.5 mg by mouth 1 (one) time each day 08/09/2020 Active flecainide (TAMBOCOR) 50 MG tablet 01/24/2021 Active spironolactone (ALDACTONE) 25 MG tablet Take 1 tablet (25 mg total) by mouth 1 (one) time each day 90 tablet 3 02/11/2022 Active Active Problems Problem Noted Date Diagnosed Date Anemia of chronic renal failure 06/25/2020 Vitamin D deficiency 03/15/2020 Stage 3b chronic kidney disease 10/12/2019 Essential hypertension 09/04/2017 Long-term current use of anticoagulant 8 Paroxysmal atrial fibrillation 09/04/2017 Rheumatoid arthritis 09/04/2017 Immunizations Name Administration Dates Next Due Influenza TIV (IM) 02/18/2022,02/18/2021, 020 Pneumococcal Conjugate 12/26/2017 Social History Tobacco Use Types Packs/Day Years [...] Sign Reading Time Taken Comments Blood Pressure 122/60 04/02/2022 10:22 AM HEALTHCARE ECONOMICS CONSULTANT Pulse 72 04/02/2022 10:22 AM HEALTHCARE ECONOMICS CONSULTANT Temperature 35.3 ??C (95.5 ??F) 04/02/2022 10:[address] Respiratory Rate - - Oxygen Saturation - - Inhaled Oxygen Concentration - - Weight 66.2 kg (146 lb) 04/02/2022 10:22 AM HEALTHCARE ECONOMICS CONSULTANT Height 162.6 cm (5' 4 ) 04/02/2022 10:22 AM HEALTHCARE ECONOMICS CONSULTANT Body Mass Index 25.06 04/02/2022 10:22 AM HEALTHCARE ECONOMICS CONSULTANT Plan of Treatment Health Maintenance Due Date Last Done Comments Pneumococcal PPSV23/PCV13 65 + Years / High and Highest Risk (1 of 4 - PCV) 1951 Influenza Vaccine (#1) 2023 2, 02/18/2021, 02/09/2020 Care Teams Foot Gatherer Relationship Specialty Start Date End Date Jason Isaacs MD [address] [place] [address] PCP - General Internal Medicine 10/10/19
--- OUTSIDE RECORDS SUMMARY | 2024-04-12 04:13 | XMS_ITS | Encounter Summary ---
Author Organization [facility] Address [address] [place] [address] Phone Care Team Providers Care Foil Operator Name Role Phone Jason Isaacs MD Primary Care Provider [phone] Encounter Details Date Type Department Care Team (Late st Contact Info) Description 10/14/[address] [facility] Nephrology and Hypertension [address] [facility], [address] [place] [address] Odin Gao MD [address] [facility], [address] [place] [address] Social History Tobacco Use Types Packs/Day Years [...] encounter Miscellaneous Notes * Telephone Encounter - Graham Jacques MA - 10/15/2021 9:08 AM CDT Spoke to Chasidy and she understood that you said that you are ok that she doesn't take an refill her losartan. * Telephone Encounter - Odin Gao MD - 10/14/2021 3:13 PM CDT Please let her know: Okay. We will leave it off. thanks * Telephone Encounter - Karime Talbot - 10/14/2021 1:28 PM CDT You filled a losartan prescription at the patient's last visit. The patient does not want to fill it because the last time she took it her BP dropped too low. Recent BP readings have been 119/70, 121/70, 113/66. Please advise. documented in this encounter Plan of Treatment Not on file documented as of this encounter Visit Diagnoses Not on filedocumented in this encounter Care Teams Foil Operator Relationship Specialty Start Date End Date Jason Isaacs MD [address] [place] [address] PCP - General Internal Medicine 10/10/19 documented as of this encounter
--- OUTSIDE RECORDS SUMMARY | 2024-04-12 04:13 | XMS_ITS | Encounter Summary ---
Author Organization [facility] Address [address] [place] [address] Phone Care Team Providers Care Instrument Specialist Name Role Phone Jason Isaacs MD Primary Care Provider [phone] Encounter Details Date Type Department Care Team (Late st Contact Info) Description 12/15/2019 9:45 AM CDT Office Visit [facility] Nephrology and Hypertension [address] [place] [address], [address] [place] [address] Odin Gao MD [address] [facility], [address] [place] [address] Essential hypertension (Primary Dx); Nonspecific abnormal results of function study of kidney Social History Tobacco Use Types Packs/Day Years [...] Sign Reading Time Taken Comments Blood Pressure 134/70 12/15/2019 9:58 AM CDT Pulse 84 12/15/2019 9:58 AM CDT Temperature 37 ??C (98.6 ??F) 12/15/2019 9:58 AM CDT Respiratory Rate - - Oxygen Saturation - - Inhaled Oxygen Concentration - - Weight 62.1 kg (137 lb) 12/15/2019 9:58 AM CDT Height 162.6 cm (5' 4 ) 12/15/2019 9:58 AM CDT Body Mass Index 23.52 12/15/2019 9:58 AM CDT documented in this encounter Progress Notes * Odin Gao MD - 12/15/2019 9:45 AM CDT Chasidy Thomas is a pleasant 74 y.o.female. Chasidy is a very pleasant lady who comes in for an elevated creatinine. She had her knee replacement and it went well. Back on usual meds except no hctz and no leflunomide She stopped the latter for the sg and joints have been okay since then. The patient has a history of chronic kidney disease with a baseline creatinine between 1.4 and 1.6. The patient has hypertension. She has had this for about 10 years. It is always been well controlled. She???s never had a stroke or a heart attack. The patient has diabetes. This has been scratch that the patient does not have diabetes. The patient has atrial fibrillation. This is been going on for two years. She is treated with xarelto for this. The patient has rheumatoid arthritis. This is [...] above Urologic: Negative except as above BP 134/70 Pulse 84 Temp 98.6 ??F (37 ??C) Ht 5' 4 (1.626 m) Wt 137 lb (62.1 kg) BMI 23.52 kg/m?? BSA 1.67 m?? WDWN female in NAD Skin No rash Head NCAT Neck No nodes, No TMG Lungs Clear to Auscultation Cor RRR no rub or gallop Abd BS+ nontender and soft. Ext No edema, Psyche normal not depressed or anxious Recent Labs: 10/06/2019 Cr 1.6 10/15/2019 Cr 1.24 11/01/2019 Cr 1.6 12/07/2019 Cr 1.6, gfr 31, K 4.7, UA neg, Upro low ESR 23, FLASH neg, C' nl S+UIfx neg, K/L normal Imaging: Impression: Chasidy has an elevated creatinine. 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 Restart hctz and cut spirono to one a day Control Cholesterol Check PTH/Vit D check next visit Low protein diet Avoid NSAIDs Stay well hydrated Plan Cut spirono to one a day Restart hctz Watch the salt RTC 3 months Assessment/Plan Diagnoses and all orders for this visit: Essential hypertension Nonspecific abnormal results of function study of kidney documented in this encounter Plan of Treatment Not on file documented as of this encounter Visit Diagnoses Diagnosis Essential hypertension- Primary Nonspecific abnormal results of function study of kidney documented in this encounter Care Teams Instrument Specialist Relationship Specialty Start Date End Date Jason Isaacs MD [address] [place] [phone] PCP - General Internal Medicine 10/10/19 documented as of this encounter
--- OUTSIDE RECORDS SUMMARY | 2024-04-12 04:13 | XMS_ITS | Encounter Summary ---
Author Organization [facility] Address [address] [place] [address] Phone Care Team Providers Care Ranch Helper Name Role Phone Jason Isaacs MD Primary Care Provider [phone] Encounter Details Date Type Department Care Team (Late st Contact Info) Description 02/11/2022 Refill [facility] Nephrology and Hypertension [address] [facility], [address] [facility] [place] [address] Odin Gao MD [address] [facility], [address] [place] [address] Social History Tobacco Use Types Packs/Day Years [...] on filedocumented in this encounter Care Teams Ranch Helper Relationship Specialty Start Date End Date Jason Isaacs MD [address] [place] [address] PCP - General Internal Medicine 10/10/19 documented as of this encounter
--- OUTSIDE RECORDS SUMMARY | 2024-04-12 04:13 | XMS_ITS | Encounter Summary ---
Author Organization [facility] Address [address] [place] [address] Phone Care Team Providers Care Fabrication Technician Name Role Phone Jason Isaacs MD Primary Care Provider [phone] Reason for Visit * Reason Comments Med Refill Encounter Details Date Type Department Care Team (Late st Contact Info) Description 01/09/2022 Refill [facility] Nephrology and Hypertension [address] [facility], [address] [place] [address] Odin Gao MD [address] [facility], [address] [facility] [place] [address] Social History Tobacco Use Types Packs/Day Years [...] on filedocumented in this encounter Care Teams Fabrication Technician Relationship Specialty Start Date End Date Jason Isaacs MD [address] [place] [address] PCP - General Internal Medicine 10/10/19 documented as of this encounter
--- OUTSIDE RECORDS SUMMARY | 2024-04-12 04:13 | XMS_ITS | Encounter Summary ---
Author Organization [facility] Address [address] [place] [address] Phone Care Team Providers Care Reading Aide Name Role Phone Jason Isaacs MD Primary Care Provider [phone] Encounter Details Date Type Department Care Team (Late st Contact Info) Description 04/05/2020 Telephone [facility] Nephrology and Hypertension [address] [facility], [address] [facility] [place] [address] Odin Gao MD [address] [facility], [address] [place] [address] Social History Tobacco Use Types Packs/Day Years [...] encounter Miscellaneous Notes * Telephone Encounter - Odin Gao MD - 04/05/2020 5:31 PM CST U/s shows inc echogenicity hypoechoic region near left renal pelvis. See documented in this encounter Plan of Treatment Not on file documented as of this encounter Visit Diagnoses Not on filedocumented in this encounter Care Teams Reading Aide Relationship Specialty Start Date End Date Jason Isaacs MD [address] [place] [id number] PCP - General Internal Medicine 10/10/19 documented as of this encounter
--- OUTSIDE RECORDS SUMMARY | 2024-04-12 04:13 | XMS_ITS | Encounter Summary ---
Author Organization [facility] Address [address] [place] [address] Phone Care Team Providers Care Muffle Worker Name Role Phone Jason Isaacs MD Primary Care Provider [phone] Encounter Details Date Type Department Care Team (Late st Contact Info) Description 10/12/2019 Telephone [facility] Nephrology and Hypertension [address] [facility], [address] [facility] [place] [address] Odin Gao MD [address] [facility], [address] [place] [address] Social History Tobacco Use Types Packs/Day Years [...] Telephone Encounter - Odin Gao MD - 10/13/2019 5:17 PM CDT I talked with Dr Oconnor. I will fax a note. I talked with patient. Okay for surgery. please get lab done before our next visit. * Telephone Encounter - Odin Gao MD - 10/13/2019 5:16 PM CDT 1. Phone number is [phone], please correct. 2. Please put generic slip on my chair for her for further eval. * Telephone Encounter - Odin Gao MD - 10/13/2019 5:07 PM CDT Labs: Cr 1.4, gfr 37, Na 133, Ca 10.4, PTH 103.6, Vit d 51.1, Hb 13.6. This is her baseline. Will notify Dr Oconnor that it is okay for surgery. * Telephone Encounter - Angélica Gao MA - 10/13/2019 2:06 PM CDT Pt called re: lab results from yesterday. Please call * Telephone Encounter - Odin Gao MD - 10/12/2019 11:56 AM CDT Please ask dr Isaacs to send last 3 sets of labs over going back about a year documented in this encounter Plan of Treatment Not on file documented as of this encounter Visit Diagnoses Not on filedocumented in this encounter Care Teams Muffle Worker Relationship Specialty Start Date End Date Jason Isaacs MD [address] [place] [address] PCP - General Internal Medicine 10/10/19 documented as of this encounter
--- OUTSIDE RECORDS SUMMARY | 2024-04-12 04:13 | XMS_ITS | Encounter Summary ---
Author Organization [facility] Address [address] [place] [address] Phone Care Team Providers Care Commissions Coordinator Name Role Phone Jason Isaacs MD Primary Care Provider [phone] Encounter Details Date Type Department Care Team (Late st Contact Info) Description 10/02/2021 9:45 AM CDT Office Visit [facility] Nephrology and Hypertension [address] [place] [address], [address] [place] [address] Odin Gao MD [address] [facility], [address] [place] [address] Essential hypertension (Primary Dx); Vitamin D deficiency, not otherwise specified; Stage 3b chronic kidney disease ([facility]) Social History Tobacco Use Types Packs/Day Years [...] Sign Reading Time Taken Comments Blood Pressure 142/90 10/02/2021 9:33 AM CDT Pulse 72 10/02/2021 9:33 AM CDT Temperature 36.9 ??C (98.4 ??F) 10/02/2021 9:33 AM CD T Respiratory Rate - - Oxygen Saturation - - Inhaled Oxygen Concentration - - Weight 71.2 kg (157 lb) 10/02/2021 9:33 AM CDT Height 162.6 cm (5' 4 ) 10/02/2021 9:33 AM CDT Body Mass Index 26.95 10/02/2021 9:33 AM CDT documented in this encounter Progress Notes * Odin Gao MD - 10/02/2021 9:45 AM CDT Chasidy Thomas is a pleasant 76 y.o.female. Here with . Chasidy is a very pleasant lady who comes in for an elevated creatinine. No problems urinating. On low protein diet Leflunomide working for the joints. The patient has a history of chronic kidney disease with a baseline creatinine between 1.4 and 1.6. The patient has hypertension. BP has been okay. She checks it at home from time to time and gets 130/70 or so She developed anemia and Dr Hernandez is following. Hb has been good. The patient does not have diabetes. The patient has atrial fibrillation. This is been going on for two years. She is treated with xarelto for this. She saw Dr Gregg who did cystoscopy and said all was good The patient has rheumatoid arthritis. This is been going on for about 20 years. It has been well controlled. Past history: hypertension, atrial fibrillation, rheumatoid arthritis, chronic kidney disease. Allergies Allergen Reactions ??? Oxycodone Dizziness, Nausea And Vomiting, nausea and Other (see comments) Other reaction(s): Hypotension, Hypotension, Other (See Comments), Stomach upset Other reaction(s): Nausea only ??? Sulfasalazine Nausea Only Social History Tobacco Use ??? Smoking status: Former Smoker ??? Smokeless tobacco: Never Used Substance Use Topics ??? Alcohol use: Yes Alcohol/week: 2.0 standard drinks Types: 2 Cans of beer per week ROS Constitutional: Negative except as above Skin: Negative except as above Pulmonary: Negative except as above Urologic: Negative except as above BP 142/90 Pulse 72 Temp 98.4 ??F (36.9 ??C) Ht 5' 4 (1.626 m) Wt 157 lb (71.2 kg) BMI 26.95 kg/m?? BSA 1.79 m?? WDWN female in NAD Skin No rash Head NCAT Neck No nodes, No TMG Lungs Clear Cor RRR no rub or gallop Abd BS+ nontender and soft. Ext No edema or cyanosis Psyche normal not depressed or anxious Recent Labs: 10/06/2019 Cr 1.6 10/15/2019 Cr 1.24 11/01/2019 Cr 1.6 12/07/2019 Cr 1.6, gfr 31, K 4.7, UA neg, Upro low ESR 23, FLASH neg, C' nl S+UIfx neg, K/L normal 03/08/2020 Cr 1.67, gfr 31, vit d 27,, Hb 11.2, Upro low 08/27/20 Cr 1.55, gfr 33, co2 28, Hb 12.9, Upro 180 03/19/21 Cr 1.67, gfr 31, Co2 30, PTH 164 09/19/21 Cr 1.61, gfr 31, CO2 28, PTH 157, Vit d 32, MANOHAR 100 Imagin04/03/20 Renal ultrasound inc echogenicity, and abnormality in left renal pelvis. Impression: Chasidy has an elevated creatinine. 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 She will restart the losartan. Control Cholesterol Per PCP Check PTH is high. Vit d okay.will avoid dairy; Low protein diet Avoid NSAIDs Stay well hydrated Long discussion. Afib. Per Dr Oscar. On xarelto. Plan Losartan 25mg per day Same diet RTC 6 months Assessment/Plan Diagnoses and all orders for this visit: Essential hypertension Vitamin D deficiency, not otherwise specified Stage 3b chronic kidney disease ([facility]) documented in this encounter Plan of Treatment Not on file documented as of this encounter Visit Diagnoses Diagnosis Essential hypertension- Primary Vitamin D deficiency, not otherwise specified Stage 3b chronic kidney disease (CMS-HCC) documented in this encounter Care Teams Commissions Coordinator Relationship Specialty Start Date End Date Jason Isaacs MD [address] [place] [address] PCP - General Internal Medicine 10/10/19 documented as of this encounter
--- OUTSIDE RECORDS SUMMARY | 2024-04-12 04:13 | XMS_ITS | Encounter Summary ---
Author Organization [facility] Address [address] [place] [address] Phone Care Team Providers Care Middleware Developer Name Role Phone Jason Isaacs MD Primary Care Provider [phone] Encounter Details Date Type Department Care Team (Late st Contact Info) Description 10/12/2019 11:30 AM CDT Office Visit [facility] Nephrology and Hypertension [address] [place] [address], [address] [place] [address] Odin Gao MD [address] [facility], [address] [place] [address] Essential hypertension (Primary Dx); Nonspecific abnormal results [...] Sign Reading Time Taken Comments Blood Pressure 124/70 10/12/2019 12:00 PM CDT Pulse 84 10/12/2019 12:00 PM CDT Temperature 35.9 ??C (96.6 ??F) 10/12/2019 12:00 PM C DT Respiratory Rate - - Oxygen Saturation - - Inhaled Oxygen Concentration - - Weight 61.2 kg (135 lb) 10/12/2019 12:00 PM CDT Height 162.6 cm (5' 4 ) 10/12/2019 12:00 PM CDT Body Mass Index 23.17 10/12/2019 12:00 PM CDT documented in this encounter Progress Notes * Odin Gao MD - 10/12/2019 11:30 AM CDT Chasidy Thomas is a pleasant 74 y.o.female. Chasidy is a very pleasant lady who comes in for an elevated creatinine. The patient has a history of chronic kidney disease with a baseline creatinine between 1.4 and 1.6.She has never seen a radio division officer. She has had problems with her right knee and so she went to see Dr. Oconnor who told her that she needed a knee replacement. This was scheduled for this coming Thursday. She had her preoperative labs done and this showed that her creatinine had risen from 1.4 to 1.6. Because of this she was sent for kidney evaluation. The patient has not had any nonsteroidal anti-inflammatory agents. At the time of the visit the patient was feeling fine. There was no nausea, vomiting, diarrhea, fevers, chills, or other flu like illnesses. The patient has had no bloody urine, foamy urine, kidney stones, painful urination, or bladder infections. The patient is not taking any new medications or new over the counter meds. The patient has hypertension. She has had this for about 10 years. It is always been well controlled. She???s never had a stroke or a heart attack. The patient has diabetes. This has been scratch that the patient does not have diabetes. The patient has atrial fibrillation. This is been going on for two years. She is treated with anticoagulation for this. The patient has rheumatoid arthritis. [...] file ROS Constitutional: Negative except as above Neuro: Negative except as above ENT: Negative except as above Endocrine: Negative except as above Psychiatric: Negative except as above Pulmonary: Negative except as above Cardiac: Negative except as above Abdomen: Negative except as above Urologic: Negative except as above Skin: Negative except as above Rheumatologic: Negative except as above BP 124/70 Pulse 84 Temp 96.6 ??F (35.9 ??C) Ht 5' 4 (1.626 m) Wt 135 lb (61.2 kg) BMI 23.17 kg/m?? BSA 1.66 m?? WDWN female in NAD Skin No rash Head NCAT Mouth Normal Lips, Gums, and Teeth Neck No nodes, No TMG Back No CVAT Lungs Clear to Auscultation and Percussion Cor: RRR no rub or gallop Abd BS+ nontender and soft. No HSM no masses no bruits Ext No edema, cyanosis, or clubbing. Swollen right knee Pulses normal radial and dorsalis pedis Psyche normal not depressed or anxious Neuro A+Ox3 Motor 5/5 all groups Cr Ns 2-12 intact Cb normal CAITLIN Recent Labs: Imaging: Impression: Chasidy has an elevated creatinine. The last Few sets of bloodwork show that her creatinine has range from 1.4 to 1.6. Her most recent creatinine is 1.6. Her current level is probably within her usual baseline. It is possible that she might be a little bit on the dry side because it is so hot outside. I would like to repeat the bloodwork to see where her creatinine is now. I will also get urine for electrolytes and eosinophils as well as a urinalysis. If the creatinine is stable then I think we could probably go ahead with surgery. She would have to come in down the line for full evaluation of her chronic kidney disease. I told her to avoid large amounts of protein in her diet. She does this by taste. She will stay well hydrated. She will continue her current medications. She will come back in a month or two for further evaluation and management. Assessment/Plan Diagnoses and all orders for this visit: Essential hypertension Nonspecific abnormal results of function study of kidney documented in this encounter Plan of Treatment Not on file documented as of this encounter Visit Diagnoses Diagnosis Essential hypertension- Primary Nonspecific abnormal results of function study of kidney documented in this encounter Care Teams Middleware Developer Relationship Specialty Start Date End Date Jason Isaacs MD [address] [place] [address] PCP - General Internal Medicine 10/10/19 documented as of this encounter
--- OUTSIDE RECORDS SUMMARY | 2024-04-12 04:13 | XMS_ITS | Encounter Summary ---
Author Organization [facility] Address [address] [place] [address] Phone Care Team Providers Care Delivery Merchandiser Name Role Phone Jason Isaacs MD Primary Care Provider [phone] Encounter Details Date Type Department Care Team (Late st Contact Info) Description 10/16/2020 Telephone [facility] Nephrology and Hypertension [address] [facility], [address] [place] [address] Odin Gao MD [address] [facility], [address] [place] [address] Social History Tobacco Use Types Packs/Day Years [...] Telephone Encounter - Graham Jacques MA - 11/27/2020 3:37 PM CDT RESULTS IN CHART UNDER MEDIA * Telephone Encounter - Odin Gao MD - 10/16/2020 10:07 AM CDT Ask pt to get a renal panel to check her potassium. Shell need a slip for leelee documented in this encounter Plan of Treatment Not on file documented as of this encounter Visit Diagnoses Not on filedocumented in this encounter Care Teams Delivery Merchandiser Relationship Specialty Start Date End Date Jason Isaacs MD [address] [place] [address] PCP - General Internal Medicine 10/10/19 documented as of this encounter
--- OUTSIDE RECORDS SUMMARY | 2024-04-12 04:13 | XMS_ITS | Encounter Summary ---
Author Organization [facility] Address [address] [place] [address] Phone Care Team Providers Care Telegraphic Service Dispatcher Name Role Phone Jason Isaacs MD Primary Care Provider Encounter Details Date Type Department Care Team (Late st Contact Info) Description 09/12/2020 9:15 AM CDT Office Visit [facility] Nephrology and Hypertension [address] [place] [address], [address] [place] [address] Odin Gao MD [address] [facility], [address] [place] [address] Essential hypertension (Primary Dx); Vitamin D deficiency, not otherwise specified; Stage 3b chronic kidney disease ([facility]) Social History Tobacco Use Types Packs/Day [...] Sign Reading Time Taken Comments Blood Pressure 112/70 09/12/2020 9:18 AM CDT Pulse 72 09/12/2020 9:18 AM CDT Temperature 35.8 ??C (96.4 ??F) 09/12/2020 9:18 AM CD T Respiratory Rate - - Oxygen Saturation - - Inhaled Oxygen Concentration - - Weight 67.6 kg (149 lb) 09/12/2020 9:18 AM CDT Height 162.6 cm (5' 4 ) 09/12/2020 9:18 AM CDT Body Mass Index 25.58 09/12/2020 9:18 AM CDT documented in this encounter Progress Notes * Odin Gao MD - 09/12/2020 9:15 AM CDT Chasidy Thomas is a pleasant 75 y.o.female. Chasidy is a very pleasant lady who comes in for an elevated creatinine. Back on the leflunomide due to arthralgias The patient has a history of chronic kidney disease with a baseline creatinine between 1.4 and 1.6. The patient has hypertension. BP has been okay She developed anemia and saw Dr Hernandez and is getting procrit. She responded then held. The patient has diabetes. She doesn't check [...] above Urologic: Negative except as above BP 112/70 Pulse 72 Temp 96.4 ??F (35.8 ??C) Ht 5' 4 (1.626 m) Wt 149 lb (67.6 kg) BMI 25.58 kg/m?? BSA 1.75 m?? WDWN female in NAD Skin No rash Head NCAT Neck No nodes, No TMG Lungs Clear bilaterally Cor RRR no rub or gallop Abd [...] 33, co2 28, Hb 12.9, Upro 180 Imagin04/03/20 Renal ultrasound inc echogenicity, and abnormality in left renal pelvis. Impression: Chasidy has an elevated creatinine. 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 Control Cholesterol Per PCP Check PTH/Vit D check next visit Low protein diet Avoid NSAIDs Stay well hydrated It sounds like she had afib around the election? She will call Dr Oscar about this. She is on xarelto Plan Same meds Same diet Watch the salt RTC 3 months Assessment/Plan Diagnoses and all orders for this visit: Essential hypertension Vitamin D deficiency, not otherwise specified Stage 3b chronic kidney disease (CMS-HCC) documented in this encounter Plan of Treatment Not on file documented as of this encounter Visit Diagnoses Diagnosis Essential hypertension- Primary Vitamin D deficiency, not otherwise specified Stage 3b chronic kidney disease (CMS-HCC) documented in this encounter Care Teams Telegraphic Service Dispatcher Relationship Specialty Start Date End Date Jason Isaacs MD [address] [place] [address] PCP - General Internal Medicine 10/10/19 documented as of this encounter
--- OUTSIDE RECORDS SUMMARY | 2024-04-12 04:13 | XMS_ITS | Encounter Summary ---
Author Organization [facility] Address [address] [place] [address] Phone Care Team Providers Care Carbon Lamp Cleaner Name Role Phone Jason Isaacs MD Primary Care Provider [phone] Encounter Details Date Type Department Care Team (Late st Contact Info) Description 03/16/2020 Telephone [facility] Nephrology and Hypertension [address] [facility], [address] [facility] [place] [address] Odin Gao MD [address] [facility], [address] [place] [address] Social History Tobacco Use Types Packs/Day Years [...] encounter Miscellaneous Notes * Telephone Encounter - Faiza Granados - 03/30/2020 9:35 AM CST Lab slip on HEP's chair to be signed * Telephone Encounter - Odin Gao MD - 03/29/2020 11:08 PM CST Discussed with patient. We reviewed: Take losartan again (PCP stopped in last month), keep bp good,drink fluids, no NSAIDs, low protein diet. Get rfp in 2 weeks. Please send slip to pt for rfp. Dx n18.9 * Telephone Encounter - Faiza Roberta - 03/16/2020 11:49 AM CST Spoke w/ pt, wondering if there is anything she can do to raise her GFR. Please advise documented in this encounter Plan of Treatment Not on file documented as of this encounter Visit Diagnoses Not on filedocumented in this encounter Care Teams Carbon Lamp Cleaner Relationship Specialty Start Date End Date Jason Isaacs MD [address] [place] [address] PCP - General Internal Medicine 10/10/19 documented as of this encounter
--- OUTSIDE RECORDS SUMMARY | 2024-04-12 04:13 | XMS_ITS | Encounter Summary ---
Author Organization [facility] Address [address] [place] [address] Phone Care Team Providers Care Family Member Caretaker Name Role Phone Jason Isaacs MD Primary Care Provider [phone] Encounter Details Date Type Department Care Team (Late st Contact Info) Description 09/12/2020 Telephone [facility] Nephrology and Hypertension [address] [facility], [address] [place] [address] Odin Gao MD [address] [facility], [address] [place] [address] Social History Tobacco Use Types Packs/Day Years [...] Telephone Encounter - Odin Gao MD - 09/17/2020 10:19 AM CDT I talked with office again on Thursday afternoon. The mass is actually part of the renal pelvis.Ureteroscope shows all is okay. * Telephone Encounter - Odin Gao MD - 09/13/2020 3:33 PM CDT I talked w Dr Gregg' office. Cysto was okay. Ureteroscopy also okay recently. They will talk with Dr Parres and see if more evaluation needs to be done for the mass. * Telephone Encounter - Odin Gao MD - 09/12/2020 9:22 AM CDT Call parres to get info on evaluation documented in this encounter Plan of Treatment Not on file documented as of this encounter Visit Diagnoses Not on filedocumented in this encounter Care Teams Family Member Caretaker Relationship Specialty Start Date End Date Jason Isaacs MD [address] [place] [address] PCP - General Internal Medicine 10/10/19 documented as of this encounter
--- OUTSIDE RECORDS SUMMARY | 2024-04-12 04:13 | XMS_ITS | Encounter Summary ---
Author Organization [facility] Address [address] [place] [address] Phone Care Team Providers Care Cooker Soda Name Role Phone Jason Isaacs MD Primary Care Provider Encounter Details Date Type Department Care Team (Late st Contact Info) Description 03/25/2021 9:45 AM CHIEF COMMUNICATIONS OFFICER Office Visit [facility] Nephrology and Hypertension [address] [place] [address], [address] [place] [address] Odin Gao MD [address] [facility], [address] [place] [address] Essential hypertension (Primary Dx); Vitamin D deficiency, not otherwise specified; Stage 3b chronic kidney disease (CMS-HCC); Anemia of chronic renal failure Social History Tobacco Use Types Packs/Day Years [...] Sign Reading Time Taken Comments Blood Pressure 124/72 03/25/2021 9:32 AM CHIEF COMMUNICATIONS OFFICER Pulse 60 03/25/2021 9:32 AM CHIEF COMMUNICATIONS OFFICER Temperature 36.4 ??C (97.5 ??F) 03/25/2021 9:32 AM CS T Respiratory Rate - - Oxygen Saturation - - Inhaled Oxygen Concentration - - Weight 71.2 kg (157 lb) 03/25/2021 9:32 AM CHIEF COMMUNICATIONS OFFICER Height 162.6 cm (5' 4 ) 03/25/2021 9:32 AM CHIEF COMMUNICATIONS OFFICER Body Mass Index 26.95 03/25/2021 9:32 AM CHIEF COMMUNICATIONS OFFICER documented in this encounter Progress Notes * Odin Gao MD - 03/25/2021 9:45 AM CST Chasidy Thomas is a pleasant 75 y.o.female. Chasidy is a very pleasant lady who comes in for an elevated creatinine. Urinating fine On low protein diet Back on the leflunomide due to arthralgias The patient has a history of chronic kidney disease with a baseline creatinine between 1.4 and 1.6. The patient has hypertension. BP has been okay She developed anemia and Dr Hernandez is following. Hb has been good. The patient has diabetes. She doesn't check [...] above Urologic: Negative except as above BP 124/72 Pulse 60 Temp 97.5 ??F (36.4 ??C) Ht 5' 4 (1.626 m) Wt 157 lb (71.2 kg) BMI 26.95 kg/m?? BSA 1.79 m?? WDWN female in NAD Skin No rash Head NCAT Neck No nodes, No TMG Lungs Clear to ausc Cor RRR no rub or gallop Abd [...] 1.67, gfr 31, Co2 30, PTH 164 Imagin04/03/20 Renal ultrasound inc echogenicity, and abnormality in left renal pelvis. Impression: Chasidy has an elevated creatinine. 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 Control Cholesterol Per PCP Check PTH is high. She is on vit d. Will recheck vit d level next visit Low protein diet Avoid NSAIDs Stay well hydrated It sounds like she had afib around the election? She will call Dr Oscar about this. She is on xarelto Plan Same meds Same diet Check vit d next visit RTC 6 months Assessment/Plan Diagnoses and all orders for this visit: Essential hypertension Vitamin D deficiency, not otherwise specified Stage 3b chronic kidney disease ([facility]) Anemia of chronic renal failure [facility] documented in this encounter Plan of Treatment Not on file documented as of this encounter Visit Diagnoses Diagnosis Essential hypertension- Primary Vitamin D deficiency, not otherwise specified Stage 3b chronic kidney disease (CMS-HCC) Anemia of chronic renal failure documented in this encounter Care Teams Cooker Soda Relationship Specialty Start Date End Date Jason Isaacs MD [address] [place] [address] PCP - General Internal Medicine 10/10/19 documented as of this encounter
--- OUTSIDE RECORDS SUMMARY | 2024-04-12 04:13 | XMS_ITS | Encounter Summary ---
Author Organization [facility] Address [address] [place] [address] Phone Care Team Providers Care Prehemmer Name Role Phone Jason Isaacs MD Primary Care Provider [phone] Encounter Details Date Type Department Care Team (Late st Contact Info) Description 11/07/2020 Telephone [facility] Nephrology and Hypertension [address] [facility], [address] [place] [address] Angélica Gao RN Social History Tobacco Use Types Packs/Day Years [...] encounter Miscellaneous Notes * Telephone Encounter - Angélica Gao MA - 11/07/2020 9:26 AM CDT Spoke to pt re: getting labs done to check K+. Pt to go today to [place]. Lab req faxed documented in this encounter Plan of Treatment Not on file documented as of this encounter Visit Diagnoses Not on filedocumented in this encounter Care Teams Prehemmer Relationship Specialty Start Date End Date Jason Isaacs MD [address] [place] [address] PCP - General Internal Medicine 10/10/19 documented as of this encounter
--- OUTSIDE RECORDS SUMMARY | 2024-04-12 04:13 | XMS_ITS | Encounter Summary ---
Author Organization [facility] Address [address] [place] [address] Phone Care Team Providers Care Home Housekeeper Name Role Phone Jason Isaacs MD Primary Care Provider [phone] Encounter Details Date Type Department Care Team (Late st Contact Info) Description 08/30/2020 Telephone [facility] Nephrology and Hypertension [address] [facility], [address] [place] [address] Giovanna Gao MA Social History Tobacco Use Types Packs/Day Years [...] encounter Miscellaneous Notes * Telephone Encounter - Giovanna Gao MA - 08/30/2020 2:55 PM CDT Pt asks for 30 day refil of losartan 25 mg to pharm listed in chart. documented in this encounter Plan of Treatment Not on file documented as of this encounter Visit Diagnoses Not on filedocumented in this encounter Care Teams Home Housekeeper Relationship Specialty Start Date End Date Jason Isaacs MD [address] [place] [address] PCP - General Internal Medicine 10/10/19 documented as of this encounter
--- OUTSIDE RECORDS SUMMARY | 2024-04-12 04:13 | XMS_ITS | Encounter Summary ---
Author Organization [facility] Address [address] [place] [address] Phone Care Team Providers Care Manager Business Systems Name Role Phone Jason Isaacs MD Primary Care Provider [phone] Encounter Details Date Type Department Care Team (Late st Contact Info) Description 04/02/2022 10:15 AM DICTAPHONE TYPIST Office Visit [facility] Nephrology and Hypertension [address] [place] [address], [address] [place] [address] Odin Gao MD [address] [facility], [address] [place] [address] Essential hypertension (Primary Dx); Vitamin D deficiency, [...] Comments Blood Pressure 122/60 04/02/2022 10:22 AM DICTAPHONE TYPIST Pulse 72 04/02/2022 10:22 AM DICTAPHONE TYPIST Temperature 35.3 ??C (95.5 ??F) 04/02/2022 10:[address] Respiratory Rate - - Oxygen Saturation - - Inhaled Oxygen Concentration - - Weight 66.2 kg (146 lb) 04/02/2022 10:22 AM DICTAPHONE TYPIST Height 162.6 cm (5' 4 ) 04/02/2022 10:22 AM DICTAPHONE TYPIST Body Mass Index 25.06 04/02/2022 10:22 AM DICTAPHONE TYPIST documented in this encounter Progress Notes * Odin Gao MD - 04/02/2022 10:15 AM CST Chasidy Thomas is a pleasant 76 y.o.female. Here with . Chasidy is a very pleasant lady who comes in for an elevated creatinine. No problems urinating. On low protein diet She went to ER for abd pain. Diverticulitis. atbs For 14 days. Then got cdiff. Received flagyl but didn't help so got dificid and it is working really well. Leflunomide working for the joints. The patient has a history of chronic kidney disease with a baseline creatinine between 1.4 and 1.6. The patient has hypertension. BP has been fine. She checks it at home occasionaly. She developed anemia and Dr Hernandez is [...] History Tobacco Use ??? Smoking status: Former ??? Smokeless tobacco: Never Substance Use Topics ??? Alcohol use: Yes Alcohol/week: 2.0 standard drinks Types: 2 Cans of beer per week ROS Constitutional: Negative except as above Skin: Negative except as above Pulmonary: Negative except as above Urologic: Negative except as above BP 122/60 Pulse 72 Temp 95.5 ??F (35.3 ??C) Ht 5' 4 (1.626 m) Wt 146 lb (66.2 kg) BMI 25.06 kg/m?? BSA 1.73 m?? WDWN female in NAD Skin No [...] PTH 157, Vit d 32, MANOHAR 100 03/19/22 Cr 1.51, gfr 33, PTH 191, Upro 140, Hb 12.9 Imagin04/03/20 Renal ultrasound inc echogenicity, and abnormality in left renal pelvis. Impression: Chasidy has an elevated creatinine. 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 She will restart the losartan. Control Cholesterol Per PCP Check PTH is high. On vit d. Avoid dairy. Take calcium with food. Repeat next vis.t She mentions that she has osteoporosis. She should get this txd. She received reclast a couple of years ago. She should n't take this with her ckd. Consider fosamax or prolia. Low protein diet Avoid NSAIDs Stay well hydrated Long discussion. Afib. Per Dr Oscar. On xarelto. Plan Same meds Avoid dairy. Otherwise, Same diet RTC 6 months Assessment/Plan Diagnoses and all orders for this visit: Essential hypertension Vitamin D deficiency, not otherwise specified Stage 3b chronic kidney disease ([facility]-H[facility]) Anemia of chronic renal failure [facility] documented in this encounter Plan of Treatment Not on file documented as of this encounter Visit Diagnoses Diagnosis Essential hypertension- Primary Vitamin D deficiency, not otherwise specified Stage 3b chronic kidney disease (CMS-HCC) Anemia of chronic renal failure documented in this encounter Care Teams Manager Business Systems Relationship Specialty Start Date End Date Jason Isaacs MD [address] [place] [address] PCP - General Internal Medicine 10/10/19 documented as of this encounter
== END 2024-04-08 15:59 | disposition home or self-care (01) ==
PROVIDERS: PCP Internal Medicine; Visit Provider Nurse Practitioner Family
DX: M76.60 Achilles tendinitis, unspecified leg (principal); M79.89 Other specified soft tissue disorders
CPT/HCPCS: 36415; 80053; 84550; 85027; 85652; 86140; 93971

== ENCOUNTER 2024-04-11 09:42 | Outpatient (CLI) | payer MEDICARE, SELFPAY ==
[2024-04-11 09:57] LABS: Hematocrit 36.8 % (35.0-42.0); Hemoglobin 11.6 g/dL (11.7-13.8); Mean Corpuscular HGB Conc 31.5 g/dL (32-36); Mean Corpuscular Hemoglobin 31.4 pg (27.0-31.0); Mean Corpuscular Volume 99.5 fL (78.0-102.0); Mean Platelet Volume 10.7 fl (9.2-11.8); Platelet Count Result 235 K/mm3 (150-420); Red Cell Distribution Width 13.6 % (11.6-14.4); White Blood Count 10.8 K/mm3 (4.8-10.8)
[2024-04-11 09:59] LABS: Add Urine Microscopic? YES; Appearance Urine Clear (Clear); Bilirubin Urine Negative (Negative); Blood Urine Negative (Negative); Color Urine Yellow (Yellow); Glucose Urine UA Negative (Negative); Ketones Urine Negative (Negative); Leukocyte Esterase Ur Trace (Negative); Nitrate Urine Negative (Negative); Protein Urine Trace (Negative); Specific Grav Ur 1.015 (1.010-1.020); Urobilinogen Urine 0.2 mg/dL (0.2-1.0)
[2024-04-11 10:08] LABS: Bacteria Urine Trace /hpf; RBC Urine None seen /hpf (0-2); Squamous Epithelial Cell Urine Few /hpf (Few); WBC Urine 0-3 /hpf (0-3)
[2024-04-11 10:17] LABS: Band Neutrophils Percent 0 % (0-6); Eosinophils Percent Manual 1 % (1-6); Lymphocytes Absolute Manual 0.64 K/mm3 (1.1-4.5); Lymphocytes Percent Manual 6 % (18-44); Metamyelocytes Percent 1 %; Monocytes Absolute Manual 1.29 K/mm3 (0.1-0.90); Monocytes Percent Manual 12 % (3-9); Myelocytes Percent 2 %; Neutrophils Absolute Manual 8.42 K/mm3 (1.7-7.2); Neutrophils Percent Manual 78 % (46-73); Platelet Estimate Adequate (Adequate); Total Cells Counted 100
[2024-04-11 10:51] LABS: Alanine Aminotransferase 97 U/L (14-59); Albumin Level 3.4 g/dL (3.4-5.0); Alkaline Phosphatase 218 U/L (46-116); Anion Gap 10 mmol/L (4-12); Aspartate Amino Transferase 63 U/L (15-37); Bilirubin,Total 0.5 mg/dL (0.00-1.00); Blood Urea Nitrogen 27 mg/dL (7-18); Calcium 9.2 mg/dL (8.5-10.1); Carbon Dioxide 28 mmol/L (21-32); Chloride 105 mmol/L (98-108); Estimated Glomerular Filt Rate 33; Glucose 71 mg/dL (70-99); Osmolality Calculated 299 mOsm/kg (285-295); Sodium 143 mmol/L (136-145); Total Protein 6.4 g/dL (6.4-8.2)
--- OUTSIDE RECORDS SUMMARY | 2024-04-18 10:44 | XMS_ITS | Encounter Summary ---
Author Organization [facility] Address [address] [place] [address] Phone Care Team Providers Care Jv Baseball Coach Name Role Phone Jason Isaacs MD Primary Care Provider [phone] Reason for Visit * Reason Comments Med Refill Encounter Details Date Type Department Care Team (Late st Contact Info) Description 01/09/2022 Refill [facility] Nephrology and Hypertension [address] [facility], [address] [place] [address] Odin Gao MD [address] [facility], [address] [facility] [place] [address] Social History Tobacco Use Types Packs/Day Years [...] on filedocumented in this encounter Care Teams Jv Baseball Coach Relationship Specialty Start Date End Date Jason Isaacs MD [address] [place] [address] PCP - General Internal Medicine 10/10/19 documented as of this encounter
--- OUTSIDE RECORDS SUMMARY | 2024-04-18 10:44 | XMS_ITS | Encounter Summary ---
Author Organization [facility] Address [address] [place] [address] Phone Care Team Providers Care Vice President Of Brand Management Name Role Phone Jason Isaacs MD Primary Care Provider [phone] Encounter Details Date Type Department Care Team (Late st Contact Info) Description 03/25/2021 9:45 AM BATTERY TESTER Office Visit [facility] Nephrology and Hypertension [address] [place] [address], [address] [place] [address] Odin Gao MD [address] [facility], [address] [place] [address] Essential hypertension (Primary Dx); Vitamin D deficiency, [...] Comments Blood Pressure 124/72 03/25/2021 9:32 AM BATTERY TESTER Pulse 60 03/25/2021 9:32 AM BATTERY TESTER Temperature 36.4 ??C (97.5 ??F) 03/25/2021 9:32 AM CS T Respiratory Rate - - Oxygen Saturation - - Inhaled Oxygen Concentration - - Weight 71.2 kg (157 lb) 03/25/2021 9:32 AM BATTERY TESTER Height 162.6 cm (5' 4 ) 03/25/2021 9:32 AM BATTERY TESTER Body Mass Index 26.95 03/25/2021 9:32 AM BATTERY TESTER documented in this encounter Progress Notes * [...] otherwise specified Stage 3b chronic kidney disease ([facility]-HCC) Anemia of chronic renal failure [facility] documented in this encounter Plan of Treatment Not on file documented as of this encounter Visit Diagnoses Diagnosis Essential hypertension- Primary Vitamin D deficiency, not otherwise specified Stage 3b chronic kidney disease (CMS-HCC) Anemia of chronic renal failure documented in this encounter Care Teams Vice President Of Brand Management Relationship Specialty Start Date End Date Jason Isaacs MD [address] [place] [address] PCP - General Internal Medicine 10/10/19 documented as of this encounter
--- OUTSIDE RECORDS SUMMARY | 2024-04-18 10:44 | XMS_ITS | Encounter Summary ---
Author Organization [facility] Address [address] [place] [address] Phone Care Team Providers Care Audiology Doctor Name Role Phone Jason Isaacs MD Primary Care Provider [phone] Encounter Details Date Type Department Care Team (Late st Contact Info) Description 02/11/2022 Refill [facility] Nephrology and Hypertension [address] [facility], [address] [facility] [facility] [place] [address] Odin Gao MD [address] [facility], [address] [place] [address] Social History Tobacco Use Types Packs/Day Years [...] on filedocumented in this encounter Care Teams Audiology Doctor Relationship Specialty Start Date End Date Jason Isaacs MD [address] [place] [address] PCP - General Internal Medicine 10/10/19 documented as of this encounter
--- OUTSIDE RECORDS SUMMARY | 2024-04-18 10:44 | XMS_ITS | Encounter Summary ---
Author Organization [facility] Address [address] [place] [address] Phone Care Team Providers Care Racker Octave Board Name Role Phone Jason Isaacs MD Primary Care Provider [phone] Encounter Details Date Type Department Care Team (Late st Contact Info) Description 04/02/2022 10:15 AM BULLDOZER PRESS OPERATOR Office Visit [facility] Nephrology and Hypertension [address] [place] [address], [address] [place] [address] Odin Gao MD [address] [facility], [address] [place] [address] Essential hypertension (Primary Dx); Vitamin D deficiency, [...] Comments Blood Pressure 122/60 04/02/2022 10:22 AM BULLDOZER PRESS OPERATOR Pulse 72 04/02/2022 10:22 AM BULLDOZER PRESS OPERATOR Temperature 35.3 ??C (95.5 ??F) 04/02/2022 10:[address] Respiratory Rate - - Oxygen Saturation - - Inhaled Oxygen Concentration - - Weight 66.2 kg (146 lb) 04/02/2022 10:22 AM BULLDOZER PRESS OPERATOR Height 162.6 cm (5' 4 ) 04/02/2022 10:22 AM BULLDOZER PRESS OPERATOR Body Mass Index 25.06 04/02/2022 10:22 AM BULLDOZER PRESS OPERATOR documented in this encounter Progress Notes * [...] otherwise specified Stage 3b chronic kidney disease ([facility]-HCC) Anemia of chronic renal failure [facility] documented in this encounter Plan of Treatment Not on file documented as of this encounter Visit Diagnoses Diagnosis Essential hypertension- Primary Vitamin D deficiency, not otherwise specified Stage 3b chronic kidney disease (CMS-HCC) Anemia of chronic renal failure documented in this encounter Care Teams Racker Octave Board Relationship Specialty Start Date End Date Jason Isaacs MD [address] [place] [address] PCP - General Internal Medicine 10/10/19 documented as of this encounter
--- OUTSIDE RECORDS SUMMARY | 2024-04-18 10:44 | XMS_ITS | Encounter Summary ---
Author Organization [facility] Address [address] [place] [address] Phone Care Team Providers Care Gameplay Programmer Name Role Phone Jason Isaacs MD Primary Care Provider [phone] Encounter Details Date Type Department Care Team (Late st Contact Info) Description 10/14/2021 Telephone [facility] Nephrology and Hypertension [address] [facility], [address] [place] [address] Odin Gao MD [address] [facility], [address] [place] [address] Social History Tobacco Use Types Packs/Day Years [...] on filedocumented in this encounter Care Teams Gameplay Programmer Relationship Specialty Start Date End Date Jason Isaacs MD [address] [place] [address] PCP - General Internal Medicine 10/10/19 documented as of this encounter
--- OUTSIDE RECORDS SUMMARY | 2024-04-18 10:44 | XMS_ITS | Clinical Summary ---
Author Organization [facility] Address [address] [place] [address] Phone Care Team Providers Care Boot Trimmer Name Role Phone Jason Isaacs MD Primary Care Provider [phone] Allergies Active Allergy Reactions Criticality Noted Date [...] Comments Blood Pressure 122/60 04/02/2022 10:22 AM DRY CAN TENDER Pulse 72 04/02/2022 10:22 AM DRY CAN TENDER Temperature 35.3 ??C (95.5 ??F) 04/02/2022 10:[address] Respiratory Rate - - Oxygen Saturation - - Inhaled Oxygen Concentration - - Weight 66.2 kg (146 lb) 04/02/2022 10:22 AM DRY CAN TENDER Height 162.6 cm (5' 4 ) 04/02/2022 10:22 AM DRY CAN TENDER Body Mass Index 25.06 04/02/2022 10:22 AM DRY CAN TENDER Plan of Treatment Health Maintenance Due Date Last Done Comments Pneumococcal PPSV23/PCV13 65 + Years / High and Highest Risk (1 of 4 - PCV) 1951 Influenza Vaccine (#1) 2023 2, 02/18/2021, 02/09/2020 Care Teams Boot Trimmer Relationship Specialty Start Date End Date Jason Isaacs MD [address] [place] [address] PCP - General Internal Medicine 10/10/19
--- OUTSIDE RECORDS SUMMARY | 2024-04-18 10:44 | XMS_ITS | Encounter Summary ---
Author Organization [facility] Address [address] [place] [address] Phone Care Team Providers Care Health Information Provider Name Role Phone Jason Isaacs MD Primary Care Provider [phone] Encounter Details Date Type Department Care Team (Late st Contact Info) Description 10/02/2021 9:45 AM CDT Office Visit [facility] Nephrology and Hypertension [address] [place] [address], [address] [place] [address] Odin Gao MD [address] [facility], [address] [place] [address] Essential hypertension (Primary Dx); Vitamin D deficiency, not otherwise specified; Stage 3b chronic kidney disease ([facility]-HCC) Social History Tobacco Use Types Packs/Day [...] otherwise specified Stage 3b chronic kidney disease ([facility]) documented in this encounter Plan of Treatment Not on file documented as of this encounter Visit Diagnoses Diagnosis Essential hypertension- Primary Vitamin D deficiency, not otherwise specified Stage 3b chronic kidney disease (CMS-HCC) documented in this encounter Care Teams Health Information Provider Relationship Specialty Start Date End Date Jason Isaacs MD [address] [place] [address] PCP - General Internal Medicine 10/10/19 documented as of this encounter
--- OUTSIDE RECORDS SUMMARY | 2024-04-18 10:45 | XMS_ITS | Encounter Summary ---
Author Organization [facility] Address [address] [place] [address] Phone Care Team Providers Care Food Order Delivery Runner Name Role Phone Jason Isaacs MD Primary Care Provider [phone] Encounter Details Date Type Department Care Team (Late st Contact Info) Description 10/16/2020 Telephone [facility] Nephrology and Hypertension [address] [facility], [address] [place] [address] Odin Gao MD [address] [facility], [address] [place] [address] Social History Tobacco Use Types Packs/Day Years [...] CHART UNDER MEDIA * Telephone Encounter - dOin Gao MD - 10/16/2020 10:07 AM CDT Ask pt to get a renal panel to check her potassium. Shell need a slip for leelee documented in this encounter Plan of Treatment Not on file documented as of this encounter Visit Diagnoses Not on filedocumented in this encounter Care Teams Food Order Delivery Runner Relationship Specialty Start Date End Date Jason Isaacs MD [address] [place] [address] PCP - General Internal Medicine 10/10/19 documented as of this encounter
--- OUTSIDE RECORDS SUMMARY | 2024-04-18 10:45 | XMS_ITS | Encounter Summary ---
Author Organization [facility] Address [address] [place] [address] Phone Care Team Providers Care Metallurgy Teacher Name Role Phone Jason Isaacs MD Primary Care Provider [phone] Encounter Details Date Type Department Care Team (Late st Contact Info) Description 11/07/2020 Telephone [facility] Nephrology and Hypertension [address] [facility], [address] [place] [address] Angélica Gao RN Social History Tobacco Use [...] check K+. Pt to go today to [place]. Lab req faxed documented in this encounter Plan of Treatment Not on file documented as of this encounter Visit Diagnoses Not on filedocumented in this encounter Care Teams Metallurgy Teacher Relationship Specialty Start Date End Date Jason Isaacs MD [address] [place] [address] PCP - General Internal Medicine 10/10/19 documented as of this encounter
--- OUTSIDE RECORDS SUMMARY | 2024-04-18 10:47 | XMS_ITS | Encounter Summary ---
Author Organization [facility] Address [address] [place] [address] Phone Care Team Providers Care Morphology Teacher Name Role Phone Jason Isaacs MD Primary Care Provider [phone] Encounter Details Date Type Department Care Team (Late st Contact Info) Description 08/30/2020 Telephone [facility] Nephrology and Hypertension [address] [facility], [address] [place] [address] Giovanna Gao MA Social History Tobacco Use [...] on filedocumented in this encounter Care Teams Morphology Teacher Relationship Specialty Start Date End Date Jason Isaacs MD [address] [place] [address] PCP - General Internal Medicine 10/10/19 documented as of this encounter
--- OUTSIDE RECORDS SUMMARY | 2024-04-18 10:47 | XMS_ITS | Encounter Summary ---
Author Organization [facility] Address [address] [place] [address] Phone Care Team Providers Care Squeak Rattle And Leak Repairer Name Role Phone Jason Isaacs MD Primary Care Provider [phone] Encounter Details Date Type Department Care Team (Late st Contact Info) Description 09/12/2020 9:15 AM CDT Office Visit [facility] Nephrology and Hypertension [address] [place] [address], [address] [place] [address] Odin Gao MD [address] [facility], [address] [place] [address] Essential hypertension (Primary Dx); Vitamin D deficiency, not otherwise specified; Stage 3b chronic kidney disease ([facility]-H[facility]) Social History Tobacco Use Types Packs/Day Years [...] (CMS-HCC) documented in this encounter Care Teams Squeak Rattle And Leak Repairer Relationship Specialty Start Date End Date Jason Isaacs MD [address] [place] [address] PCP - General Internal Medicine 10/10/19 documented as of this encounter
--- OUTSIDE RECORDS SUMMARY | 2024-04-18 10:49 | XMS_ITS | Encounter Summary ---
Author Organization [facility] Address [address] [place] [address] Phone Care Team Providers Care Electrical Engineering Director Name Role Phone Jason Isaacs MD Primary Care Provider [phone] Encounter Details Date Type Department Care Team (Late st Contact Info) Description 03/16/2020 Telephone [facility] Nephrology and Hypertension [address] [facility], [address] [facility] [place] [address] Odin Gao MD [address] [facility], [address] [place] [address] Social History Tobacco Use Types Packs/Day Years [...] on filedocumented in this encounter Care Teams Electrical Engineering Director Relationship Specialty Start Date End Date Jason Isaacs MD [address] [place] [address] PCP - General Internal Medicine 10/10/19 documented as of this encounter
--- OUTSIDE RECORDS SUMMARY | 2024-04-18 10:49 | XMS_ITS | Encounter Summary ---
Author Organization [facility] Address [address] [place] [address] Phone Care Team Providers Care Parts Finisher Name Role Phone Jason Isaacs MD Primary Care Provider [phone] Encounter Details Date Type Department Care Team (Late st Contact Info) Description 03/15/2020 9:15 AM HOME COORDINATOR Office Visit [facility] Nephrology and Hypertension [address] [place] [address], [address] [place], [place] [id number] Odin Gao MD [address] [facility], [address] [place] [address] Essential hypertension (Primary Dx); Chronic kidney disease, [...] Comments Blood Pressure 138/70 03/15/2020 9:37 AM HOME COORDINATOR Pulse 84 03/15/2020 9:37 AM HOME COORDINATOR Temperature 36.7 ??C (98.1 ??F) 03/15/2020 9:37 AM CS T Respiratory Rate - - Oxygen Saturation - - Inhaled Oxygen Concentration - - Weight 65.3 kg (144 lb) 03/15/2020 9:37 AM HOME COORDINATOR Height 162.6 cm (5' 4 ) 03/15/2020 9:37 AM HOME COORDINATOR Body Mass Index 24.72 03/15/2020 9:37 AM HOME COORDINATOR documented in this encounter Progress Notes * [...] 3b Vitamin D deficiency, not otherwise specified [facility] documented in this encounter Plan of Treatment Not on file documented as of this encounter Visit Diagnoses Diagnosis Essential hypertension- Primary Chronic kidney disease, stage 3b Vitamin D deficiency, not otherwise specified documented in this encounter Care Teams Parts Finisher Relationship Specialty Start Date End Date Jason Isaacs MD [address] [place] [address] PCP - General Internal Medicine 10/10/19 documented as of this encounter
--- OUTSIDE RECORDS SUMMARY | 2024-04-18 10:50 | XMS_ITS | Encounter Summary ---
Author Organization [facility] Address [address] [place] [address] Phone Care Team Providers Care Economics Teacher Name Role Phone Jason Isaacs MD Primary Care Provider [phone] Encounter Details Date Type Department Care Team (Late st Contact Info) Description 12/15/2019 9:45 AM CDT Office Visit [facility] Nephrology and Hypertension [address] [place] [address], [address] [place] [address] Odin Gao MD [address] [facility], [address] [place] [address] Essential hypertension (Primary Dx); Nonspecific abnormal results [...] kidney documented in this encounter Care Teams Economics Teacher Relationship Specialty Start Date End Date Jason Isaacs MD [address] [place] [id number] PCP - General Internal Medicine 10/10/19 documented as of this encounter
--- OUTSIDE RECORDS SUMMARY | 2024-04-18 10:50 | XMS_ITS | Encounter Summary ---
Author Organization [facility] Address [address] [place] [address] Phone Care Team Providers Care Rod Mill Operator Name Role Phone Jason Isaacs MD Primary Care Provider [phone] Encounter Details Date Type Department Care Team (Late st Contact Info) Description 10/12/2019 Telephone [facility] Nephrology and Hypertension [address] [place] [address] [facility] [place] [address] Odin Gao MD [address] [facility], [address] [place] [address] Social History Tobacco Use Types Packs/Day Years [...] 5:16 PM CDT 1. Phone number is [phone], please correct. 2. Please put generic slip [...] on filedocumented in this encounter Care Teams Rod Mill Operator Relationship Specialty Start Date End Date Jason Isaacs MD [address] [place] [address] PCP - General Internal Medicine 10/10/19 documented as of this encounter
--- OUTSIDE RECORDS SUMMARY | 2024-04-18 10:51 | XMS_ITS | Encounter Summary ---
Author Organization [facility] Address [address] [place] [address] Phone Care Team Providers Care Martial Arts Instructor Name Role Phone Jason Isaacs MD Primary Care Provider [phone] Encounter Details Date Type Department Care Team (Late st Contact Info) Description 10/12/2019 11:30 AM CDT Office Visit [facility] Nephrology and Hypertension [address] [place] [address], [address] [place] [address] Odin Gao MD [address] [facility], [address] [place] [address] Essential hypertension (Primary Dx); Nonspecific abnormal results [...] 1.4 and 1.6.She has never seen a type copy examiner. She has had problems with her right [...] kidney documented in this encounter Care Teams Martial Arts Instructor Relationship Specialty Start Date End Date Jason Isaacs MD [address] [place] [address] PCP - General Internal Medicine 10/10/19 documented as of this encounter
--- OUTSIDE RECORDS SUMMARY | 2024-04-18 10:58 | XMS_ITS | Referral Summary ---
Author Organization [facility] [address] Address [address] [place] [address] Care Team Providers Care Lab Instructor Name Role Phone Jason Isaacs MD Primary Care Provider [phone] Allergies Active Allergy Reactions Criticality Noted Date [...] every evening 4 Active cholecalciferol (VITAMIN D-3) 43337 unit capsule Take 1 capsule (10,000 Units [...] on file Legal Sex Female 12:00 AM STEAM CLEANER Gender Identity Not on file Sexual Orientation [...] of Treatment Not on file Insurance MEDICARE [facility] MEDICARE [facility] Care Teams Lab Instructor Relationship Specialty Start Date End Date Jason Isaacs MD PCP - General Internal Medicine 07/13/18
--- OUTSIDE RECORDS SUMMARY | 2024-04-18 10:58 | XMS_ITS | Encounter Summary ---
Author Organization [facility] Address [address] [place] [address] Care Team Providers Care Roofer Gypsum Name Role Phone Jason Isaacs MD Primary Care Provider [phone] Reason for Visit * Reason Comments Atrial Fibrillation Hypertension Shortness of Breath 6 mo f/u Encounter Details Date Type Department Care Team (Latest Contact Info) Description 12/31/2023 9:30 AM CDT Office Visit [facility] Cardiology [address] [place] [address] Edilberto Oscar MD [facility] [address] Chronic anticoagulation (Primary Dx); PAF [...] on file Legal Sex Female 12:00 AM SILK SOAKER Gender Identity Not on file Sexual Orientation [...] the addition of carvedilol Office visit with WASH HOUSE WORKER 10/10/2019: She called the office a few weeks ago with complaint of some chestheaviness and ???feeling funny. Her home blood pressure machine had given an irregular heart beat indication. Dr. Oscar advised a 7 day monitoring analyst and stress testing. Since the week [...] 200 mg-6.25 mcg (250 unit) tablet cholecalciferol 93459 unit capsule Commonly known as: VITAMIN D-3 [...] is probably normal. Recommend follow up with environmental health nurse. Echocardiogram 06/30/2023 Normal left ventricular systolic function. [...] sooner as clinically indicated. Edilberto Oscar MD, [facility] documented in this encounter Plan of Treatment Not on file documented as of this encounter Visit Diagnoses Diagnosis Chronic anticoagulation- Primary Encounter for long-term (current) use of anticoagulants PAF (paroxysmal atrial fibrillation) ([facility]) (HCC) Atrial fibrillation Essential hypertension Unspecified essential [...] made after this encounter. cholecalciferol (VITAMIN D-3) 23810 unit capsule Take 1 capsule (10,000 Units total) by mouth daily montelukast (SINGULAIR) 10 mg tablet Take 1 tablet (10 mg total) by mouth every evening 10/19/2023 added in this encounter Care Teams Roofer Gypsum Relationship Specialty Start Date End Date Jason Isaacs MD PCP - General Internal Medicine 07/13/18 documented as of this encounter
--- OUTSIDE RECORDS SUMMARY | 2024-04-18 10:58 | XMS_ITS | Clinical Summary ---
Author Organization [facility] [address] Address [address] [place] [address] Care Team Providers Care Marketing Communication Manager Name Role Phone Jason Isaacs MD Primary Care Provider [phone] Allergies Active Allergy Reactions Criticality Noted Date [...] every evening 4 Active cholecalciferol (VITAMIN D-3) 35484 unit capsule Take 1 capsule (10,000 Units [...] on file Legal Sex Female 12:00 AM INFANT CHILDCARE PROVIDER Gender Identity Not on file Sexual Orientation [...] 02/18/2021, 02/09/2020, Additional history exists Insurance MEDICARE [facility] MEDICARE [facility] Care Teams Marketing Communication Manager Relationship Specialty Start Date End Date Jason Isaacs MD PCP - General Internal Medicine 07/13/18
--- OUTSIDE RECORDS SUMMARY | 2024-04-18 10:59 | XMS_ITS | Encounter Summary ---
Author Organization [facility] Address [address] [facility] [address] [place] [address] Care Team Providers Care Airway Controller Name Role Phone Jason Isaacs MD Primary Care Provider [phone] Encounter Details Date Type Department Care Team (Late st Contact Info) Description 10/31/2020 Telephone [facility] Cardiology [address] [place] [address] Edilberto Oscar MD [address] [id number] Social History Tobacco Use Types Packs/Day Years Used Date Smoking Tobacco: Former Cigarettes Q uit: 07/13/1998 Smokeless Tobacco: Never Alcohol Use Standard Drinks/Week Comments Yes 2 (1 standard drink = 0.6 oz pur e alcohol) 2 beers a day Comments Unknown Sex and Gender Information Value Date Recorded Sex Assigned at Not on file Legal Sex Female 12:00 AM QUALITY CONTROL INSPECTOR HEADING Gender Identity Not on file Sexual Orientation Not on file documented as of this encounter Miscellaneous Notes * Telephone Encounter - Kleber Conlye MA - 10/31/2020 2:51 PM CDT Pt came in for an EKG. Vitals were as follows: BP: 110/64 Left arm, sitting Pulse: 74 Oxygen:99% Pt sent to ER per THANH Acevedo and Brittani Saldaña NP Will forward EKG and note to [facility]. documented in this encounter Plan of Treatment Not on file documented as of this encounter Visit Diagnoses Not on filedocumented in this encounter Care Teams Airway Controller Relationship Specialty Start Date End Date Jason Isaacs MD PCP - General Internal Medicine 07/13/18 documented as of this encounter
--- OUTSIDE RECORDS SUMMARY | 2024-04-18 10:59 | XMS_ITS | Encounter Summary ---
Author Organization [facility] Address [address] [facility] [address] [place] [address] Care Team Providers Care Commodity Lead Name Role Phone Jason Isaacs MD Primary Care Provider [phone] Encounter Details Date Type Department Care Team ([facility] st Contact Info) Description 06/13/2020 Telephone [facility] Cardiology [address] [facility] [address] [place] [address] Cathie Brody NP [address] [place] [address] Social History Tobacco Use Types Packs/Day Years Used Date Smoking Tobacco: Former Cigarettes Q uit: 07/13/1998 Smokeless Tobacco: Never Alcohol Use Standard Drinks/Week Comments Yes 2 (1 standard drink = 0.6 oz pur e alcohol) 2 beers a day Comments Unknown Sex and Gender Information Value Date Recorded Sex Assigned at Not on file Legal Sex Female 12:00 AM OUTSIDE MACHINIST HELPER Gender Identity Not on file Sexual Orientation Not on file documented as of this encounter Miscellaneous Notes * Telephone Encounter - Namrata Mane RN - 06/13/2020 9:50 AM OUTSIDE MACHINIST HELPER Left detailed message for patient on regarding results. Included date/time of next appointment and instructed to contact the office w/any questions or to review. ----- Message from Cathie Brody NP sent at 06/12/2020 2:52 PM OUTSIDE MACHINIST HELPER ----- Please call her regarding Echo result: it showed mild abnormalities but these do not explain the fatigue she is having. I'm glad PCP is sending her to a editor magazine. LV systolic function (heart's ability to squeeze [...] June appt with Dr. Oscar Thank you. IDE MACHINIST HELPER IDE MACHINIST HELPER documented in this encounter Plan of Treatment Not on file documented as of this encounter Visit Diagnoses Not on filedocumented in this encounter Care Teams Commodity Lead Relationship Specialty Start Date End Date Jason Isaacs MD PCP - General Internal Medicine 07/13/18 documented as of this encounter
--- OUTSIDE RECORDS SUMMARY | 2024-04-18 10:59 | XMS_ITS | Encounter Summary ---
Author Organization [facility] Address [address] [facility] [address] [place] [address] Care Team Providers Care Cnc Set Up Operator Name Role Phone Jason Isaacs MD Primary Care Provider [phone] Reason for Visit * Reason Comments Hospital Follow Up ED f/u Encounter Details Date Type Department Care Team (Latest Contact Info) Description 10/19/2020 1:00 PM CDT Office Visit [facility] Cardiology [address] [place] [address] Brittani Saldaña NP [address] [place] [address] PAF (paroxysmal atrial fibrillation) (CMS/HCC) [...] on file Legal Sex Female 12:00 AM 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 female who comes to the office for a hospital follow up for Afib with RVR History of Present Illness: Chasidy Thomas is a 74 y.o. female with atrial fibrillation. She was admitted to [facility] in June of [address] [...] addition of carvedilol ?? Office visit with ENGINE DISPATCHER 10/10/2019: She called the office a few weeks ago with complaint of some chestheaviness and ???feeling funny. Her home blood pressure machine had given an irregular heart beat indication. Dr. Oscar advised a 7 day radiation monitor and stress testing. Since the week [...] visit. On 09/28/2020 she was admitted to [facility] beds at [facility]. She presented there with palpitations, chest [...] clinically indicated. Brittani JOE- Nurse Practitioner with [facility] Cardiology This note is dictated and transcribed using [employer] Direct Software. Sand Mill Operator variancesmay occur. Despite proofreading, typographical errors [...] 11/15/2020 added in this encounter Care Teams Cnc Set Up Operator Relationship Specialty Start Date End Date Jason Isaacs MD PCP - General Internal Medicine 07/13/18 documented as of this encounter
--- OUTSIDE RECORDS SUMMARY | 2024-04-18 10:59 | XMS_ITS | Encounter Summary ---
Author Organization [facility] Address [address] [facility] [address] [place] [address] Care Team Providers Care Barrel Burner Name Role Phone Jason Isaacs MD Primary Care Provider [phone] Reason for Visit * Reason Comments Atrial Fibrillation Fatigue Chronic Kidney Disease 6 mo f/u Encounter Details Date Type Department Care Team (Late st Contact Info) Description 07/17/2020 10:45 AM CDT Office Visit [facility] Cardiology [address] [facility] [address] [place] [address] Edilberto Oscar MD [facility] [place] [id number] PAF (paroxysmal atrial fibrillation) ([facility]) (Primary Dx); Essential hypertension; Chronic renal impairment, unspecified CKD stage; Chronic anticoagulation; Rheumatoid arthritis, involving unspecified site, unspecified whether rheumatoid factor present ([facility]) Social History Tobacco Use Types Packs/Day Years Used Date Smoking Tobacco: Former Cigarettes Q uit: 07/13/1998 Smokeless Tobacco: Never Alcohol Use Standard Drinks/Week Comments Yes 2 (1 standard drink = 0.6 oz pur e alcohol) 2 beers a day Comments Unknown Sex and Gender Information Value Date Recorded Sex Assigned at Not on file Legal Sex Female 12:00 AM SURVEILLANCE INSPECTOR Gender Identity Not on file Sexual [...] the addition of carvedilol Office visit with PATTERN STORAGE CLERK 10/10/2019: She called the office a few [...] sooner as clinically indicated Edilberto Oscar MD, [facility] documented in this encounter Plan of [...] meals added in this encounter Care Teams Barrel Burner Relationship Specialty Start Date End Date Jason Isaacs MD PCP - General Internal Medicine 07/13/18 documented as of this encounter
--- OUTSIDE RECORDS SUMMARY | 2024-04-18 10:59 | XMS_ITS | Encounter Summary ---
Author Organization [facility] Address [address] [facility] [address] [place] [address] Care Team Providers Care Audio Visual Specialist Name Role Phone Jason Isaacs MD Primary Care Provider Reason for Referral * Cardiology (Routine) - Closed Specialty Diagnoses / Procedures Referred By Contac t Referred To Contact Diagnoses PAF (paroxysmal atrial fibrillation) (CMS/HCC) (HCC) Procedures ECG 12 lead Edilberto Oscar MD [address] [facility] [address] [place] [address] Phone: tel: fax: [facility] Referral ID Status Reason Start Date Expiration Date Visits Re quested Visits Authorized [id number] Closed 10/30/2020 11/29/2021 1 1 Encounter Details Date Type Department Care Team (Late st Contact Info) Description 10/30/2020 Telephone [facility] Cardiology [address] [place] [address] [address] [place] [address] Edilberto Oscar MD [address] [facility] [address] [place] [address] Social History Tobacco Use Types Packs/Day Years Used Date Smoking Tobacco: Former Cigarettes Q uit: 07/13/1998 Smokeless Tobacco: Never Alcohol Use Standard Drinks/Week Comments Yes 2 (1 standard drink = 0.6 oz pur e alcohol) 2 beers a day Comments Unknown Sex and Gender Information Value Date Recorded Sex Assigned at Not on file Legal Sex Female 12:00 AM GUEST RELATIONS ASSOCIATE Gender Identity Not on file Sexual Orientation [...] 92 3 pm BP 69/48, HR 93. [place] a little lightheaded. Now 118/83, HR 104, [...] fibrillation documented in this encounter Care Teams Audio Visual Specialist Relationship Specialty Start Date End Date Jason Isaacs MD PCP - General Internal Medicine 07/13/18 documented as of this encounter
--- OUTSIDE RECORDS SUMMARY | 2024-04-18 10:59 | XMS_ITS | Encounter Summary ---
Author Organization [facility] Address [address] [place] [address] Care Team Providers Care Geriatric Social Work Professor Name Role Phone Jason Isaacs MD Primary Care Provider [phone] Encounter Details Date Type Department Care Team ([facility] st Contact Info) Description 11/22/2020 Telephone [facility] Cardiology [address] [place] [address] [address] Edilberto Oscar MD [address] [place] [address] [address] [place] [address] Social History Tobacco Use Types Packs/Day Years Used Date Smoking Tobacco: Former Cigarettes Q uit: 07/13/1998 Smokeless Tobacco: Never Alcohol Use Standard Drinks/Week Comments Yes 2 (1 standard drink = 0.6 oz pur e alcohol) 2 beers a day Comments Unknown Sex and Gender Information Value Date Recorded Sex Assigned at Not on file Legal Sex Female 12:00 AM RED HAT LINUX ENGINEER Gender Identity Not on file Sexual Orientation [...] tonight to call her cell in the [phone] Please advise, thank [...] documented as of this encounter Care Teams Geriatric Social Work Professor Relationship Specialty Start Date End Date Jason Isaacs MD PCP - General Internal Medicine 07/13/18 documented as of this encounter
--- OUTSIDE RECORDS SUMMARY | 2024-04-18 10:59 | XMS_ITS | Encounter Summary ---
Author Organization [facility] Healthcare Address [address] [place] [address] Care Team Providers Care Cash Application Representative Name Role Phone Jason Isaacs MD Primary Care Provider [phone] Reason for Visit * Diagnostic Imaging (Routine) - Closed Specialty Diagnoses / Procedures Referred By Contac t Referred To Contact Cardiology Diagnoses PAF (paroxysmal atrial fibrillation) (CMS/HCC) (HCC) SOB (shortness of breath) Procedures NM MPI SPECT (Rest and/or Stress) Multiple Studies Jeane Gill MD [address] [address] Phone: tel: fax: Referral ID Status Reason Start Date Expiration Date Visits Re quested Visits Authorized [id number] Closed 06/24/2023 07/23/2024 1 1 Encounter Details Date Type Department Care Team (Latest Contact Info) Description 07/01/2023 8:15 AM JAVA WEB ARCHITECT Ancillary Procedure [facility] Cardiology [address] [place] [address] PAF (paroxysmal atrial fibrillation) (CMS/HCC) (HCC); SOB [...] file Legal Sex Female 12:00 AM JAVA WEB ARCHITECT Gender Identity Not on file Sexual Orientation Not on file documented as of this encounter Plan of Treatment Not on file documented as of this encounter Procedures Procedure Name Priority Date/Time Associated Diagnosis Comments NM MPI SPECT (REST AND/OR STRESS) MULTIPLE STUDIES Schedule Routine, Read Routine (OP Routine) 07/01/2023 9:24 AM JAVA WEB ARCHITECT PAF (paroxysmal atrial fibrillation) (CMS/HCC) (HCC) SOB (shortness of breath) documented in this encounter Results * NM MPI SPECT (Rest and/or Stress) Multiple Studies (07/01/2023 9:24 AM JAVA WEB ARCHITECT) Anatomical Region Laterality Modality Body N/A Nuclear Medicine 07/01/2023 8:26 AM JAVA WEB ARCHITECT Narrative 07/02/2023 9:01 AM JAVA WEB ARCHITECT [facility] Cardiology [address] [facility] [address] [address] [address] [facility] [address] [address] P:[phone] P:[phone] MPI Imaging Report Patient Name: CHASIDY VELEZ K : 1945 Study Date: 07/01/2023 8:26:21 AM Gender: F Tech: [facility] Location: [facility] [place] Provider: JEANE GILL ?Height(Cm): 175.3 BSA: ??Weight(Kg): [...] is probably normal. Recommend follow up with photographs curator. Electronically Signed By: Shaggy [place] MD 2023-07-02 09:00:48 JAVA WEB ARCHITECT Electronically Signed By: Shaggy [place] MD 2023-07-02 09:00:48 JAVA WEB ARCHITECT Procedure Note Maykel [place] MD - 07/02/2023 [facility] Cardiology [address] [facility] [address], [place] [address] [address] [facility] [id number], [place] [address] P:[phone] P:[phone] MPI Imaging Report Patient Name: CHASIDY VELEZ K : 1945 Study Date: 07/01/2023 8:26:21 AM Gender: F Tech: [facility] Location: [facility] [place] Provider: JEANE GILL Height(Cm): 175.3 BSA: Weight(Kg): [...] is probably normal. Recommend follow up with photographs curator. Electronically Signed By: Shaggy [place] MD 2023-07-02 09:00:48 JAVA WEB ARCHITECT Electronically Signed By: Shaggy [place] MD 2023-07-02 09:00:48 JAVA WEB ARCHITECT Jeane Gill MD IMG NM PROCEDURES Final [...] Perfusion Imaging Adjunct Given 07/01/2023 9:24 AM JAVA WEB ARCHITECT 0.4 mg tc-99m sestamibi unit dose injection 10.4 millicurie 10.4 millicurie, intravenous, Once in imaging, radiopharmaceutical, Starting on Thu07/01/23 at 0832, For 1 dose, Indications: Diagnostic RadiographyIndications:Ankita gnostic Radiography Given 07/01/2023 8:32 AM JAVA WEB ARCHITECT 10.4 millicuries tc-99m sestamibi unit dose injection 33 millicurie 33 millicurie, intravenous, Once in imaging, radiopharmaceutical, Starting on Thu07/01/23 at 0924, For 1 dose, Indications: Diagnostic RadiographyIndications:Ankita gnostic Radiography Given 07/01/2023 9:24 AM JAVA WEB ARCHITECT 33 millicuries documented in this encounter Care Teams Cash Application Representative Relationship Specialty Start Date End Date Jason Isaacs MD PCP - General Internal Medicine 07/13/18 documented as of this encounter
--- OUTSIDE RECORDS SUMMARY | 2024-04-18 10:59 | XMS_ITS | Encounter Summary ---
Author Organization [facility] Healthcare Address [address] [place] [address] Care Team Providers Care Forming Machine Tender Name Role Phone Jason Isaacs MD Primary Care Provider [phone] Encounter Details Date Type Department Care Team ([facility] st Contact Info) Description 02/25/2023 Telephone [facility] Medical [facility] Cardiology [address] [place] [address] Edilberto Oscar MD [address] [id number] Social History Tobacco Use Types Packs/Day Years Used Date Smoking Tobacco: Former Cigarettes Q uit: 07/13/1998 Smokeless Tobacco: Never Alcohol Use Standard Drinks/Week Comments Yes 2 (1 standard drink = 0.6 oz pur e alcohol) 2 beers a day Comments Unknown Sex and Gender Information Value Date Recorded Sex Assigned at Not on file Legal Sex Female 12:00 AM VICE PRESIDENT OF RECRUITING Gender Identity Not on file Sexual Orientation Not on file documented as of this encounter Miscellaneous Notes * Telephone Encounter - Africa Hanks RN - 02/25/2023 10:50 AM CDT Cardiac clearance received. * Telephone Encounter - Kindra Dubois - 02/25/2023 9:42 AM CDT Ganga called from [facility] states she faxed a cardiac clearance request on 02/19. She faxed it to [phone]. Gave RN fax for her to re sent it. Contact: documented in this encounter Plan of Treatment Not on file documented as of this encounter Visit Diagnoses Not on filedocumented in this encounter Care Teams Forming Machine Tender Relationship Specialty Start Date End Date Jason Isaacs MD PCP - General Internal Medicine 07/13/18 documented as of this encounter
--- OUTSIDE RECORDS SUMMARY | 2024-04-18 10:59 | XMS_ITS | Encounter Summary ---
Author Organization [facility] Address [address] [facility] [address] [place] [address] Care Team Providers Care Wireless Manager Name Role Phone Jason Isaacs MD Primary Care Provider [phone] Encounter Details Date Type Department Care Team (Late st Contact Info) Description 11/02/2020 Orders Only [facility] Cardiology [address] [place] [address] Al Friedman MD [address] [place] [address] Social History Tobacco Use Types Packs/Day Years Used Date Smoking Tobacco: Former Cigarettes Q uit: 07/13/1998 Smokeless Tobacco: Never Alcohol Use Standard Drinks/Week Comments Yes 2 (1 standard drink = 0.6 oz pur e alcohol) 2 beers a day Comments Unknown Sex and Gender Information Value Date Recorded Sex Assigned at Not on file Legal Sex Female 12:00 AM LINDERMAN OPERATOR Gender Identity Not on file Sexual [...] on filedocumented in this encounter Care Teams Wireless Manager Relationship Specialty Start Date End Date Jason Isaacs MD PCP - General Internal Medicine 07/13/18 documented as of this encounter
--- OUTSIDE RECORDS SUMMARY | 2024-04-18 10:59 | XMS_ITS | Encounter Summary ---
Author Organization [facility] Address [address] [facility] [address] [place] [address] Care Team Providers Care Chain Hooker Name Role Phone Jason Isaacs MD Primary Care Provider Encounter Details Date Type Department Care Team (Late st Contact Info) Description 12/14/2020 Telephone [facility] Cardiology [address] [place] [address] Edilberto Oscar MD [address] [address] Social History Tobacco Use Types Packs/Day Years Used Date Smoking Tobacco: Former Cigarettes Q uit: 07/13/1998 Smokeless Tobacco: Never Alcohol Use Standard Drinks/Week Comments Yes 2 (1 standard drink = 0.6 oz pur e alcohol) 2 beers a day Comments Unknown Sex and Gender Information Value Date Recorded Sex Assigned at Not on file Legal Sex Female 12:00 AM TOLL LINE INSPECTOR Gender Identity Not on file Sexual [...] on filedocumented in this encounter Care Teams Chain Hooker Relationship Specialty Start Date End Date Jason Isaacs MD PCP - General Internal Medicine 07/13/18 documented as of this encounter
--- OUTSIDE RECORDS SUMMARY | 2024-04-18 10:59 | XMS_ITS | Encounter Summary ---
Author Organization [facility] Address [address] [facility] [address] [place] [address] Care Team Providers Care Digital Project Manager Name Role Phone Jason Isaacs MD Primary Care Provider [phone] Reason for Visit * Reason Comments Atrial Fibrillation Hypertension 6 mo f/u Encounter Details Date Type Department Care Team (Late st Contact Info) Description 08/01/2021 9:45 AM CDT Office Visit [facility] Cardiology [address] [place] [address] Edilberto Oscar MD [facility] [place] [id number] PAF (paroxysmal atrial fibrillation) (CMS/HCC) (HCC) (Primary [...] file Legal Sex Female 12:00 AM INSPECTOR MACHINE CUT GLASS Gender Identity Not on file Sexual Orientation [...] the addition of carvedilol Office visit with GEAR REPAIRER 10/10/2019: She called the office a few weeks ago with complaint of some chestheaviness and ???feeling funny. Her home blood pressure machine had given an irregular heart beat indication. Dr. Oscar advised a 7 day monitoring coordinator and stress testing. Since the week she [...] ECG at next visit Edilberto Oscar MD, [facility] documented in this encounter Plan of [...] stage documented in this encounter Care Teams Digital Project Manager Relationship Specialty Start Date End Date Jason Isaacs MD PCP - General Internal Medicine 07/13/18 documented as of this encounter
--- OUTSIDE RECORDS SUMMARY | 2024-04-18 10:59 | XMS_ITS | Encounter Summary ---
Author Organization [facility] Medical [facility] Address [address] [facility] [address] [place] [address] Care Team Providers Care Python Developer Name Role Phone Jason Isaacs MD Primary Care Provider [phone] Encounter Details Date Type Department Care Team (Late st Contact Info) Description 08/01/2021 Telephone [facility] Cardiology [address] [place] [address] Edilberto Oscar MD [address] [id number] Social History Tobacco Use Types Packs/Day Years Used Date Smoking Tobacco: Former Cigarettes Q uit: 07/13/1998 Smokeless Tobacco: Never Alcohol Use Standard Drinks/Week Comments Yes 2 (1 standard drink = 0.6 oz pur e alcohol) 2 beers a day Comments Unknown Sex and Gender Information Value Date Recorded Sex Assigned at Not on file Legal Sex Female 12:00 AM BOX BLANK MACHINE FEEDER Gender Identity Not on file Sexual Orientation [...] on filedocumented in this encounter Care Teams Python Developer Relationship Specialty Start Date End Date Jason Isaacs MD PCP - General Internal Medicine 07/13/18 documented as of this encounter
--- OUTSIDE RECORDS SUMMARY | 2024-04-18 10:59 | XMS_ITS | Encounter Summary ---
Author Organization [facility] Address [address] [facility] [address] [place] [address] Care Team Providers Care Mechanical Research Engineer Name Role Phone Jason Isaacs MD Primary Care Provider [phone] Reason for Visit * Reason Comments Atrial Fibrillation 6 mo f/u Encounter Details Date Type Department Care Team ([facility] st Contact Info) Description 01/24/2021 10:30 AM CDT Office Visit [facility] Cardiology [address] [facility] [address] [place] [address] Edilberto Oscar MD [facility] [place] [phone] Chronic renal impairment, unspecified CKD stage (Primary [...] on file Legal Sex Female 12:00 AM BROOCH AND BRACELET MAKER Gender Identity Not on file Sexual [...] the addition of carvedilol Office visit with OVERAGE SHORTAGE AND DAMAGE CLERK 10/10/2019: She called the office a few weeks ago with complaint of some chestheaviness and ???feeling funny. Her home blood pressure machine had given an irregular heart beat indication. Dr. Oscar advised a 7 day party planner and stress testing. Since the week she [...] sooner as clinically indicated Edilberto Oscar MD, [facility] documented in this encounter Miscellaneous Notes * [...] 01/19/2021 added in this encounter Care Teams Mechanical Research Engineer Relationship Specialty Start Date End Date Jason Isaacs MD PCP - General Internal Medicine 07/13/18 documented as of this encounter
--- OUTSIDE RECORDS SUMMARY | 2024-04-18 10:59 | XMS_ITS | Encounter Summary ---
Author Organization [facility] Address [address] [facility] [address] [place] [address] Care Team Providers Care Workers Compensation Specialist Name Role Phone Jason Isaacs MD Primary Care Provider [phone] Encounter Details Date Type Department Care Team (Late st Contact Info) Description 09/28/2020 Telephone [facility] Cardiology [address] [place] [address] Edilberto Oscar MD [address] [phone] Social History Tobacco Use Types Packs/Day Years Used Date Smoking Tobacco: Former Cigarettes Q uit: 07/13/1998 Smokeless Tobacco: Never Alcohol Use Standard Drinks/Week Comments Yes 2 (1 standard drink = 0.6 oz pur e alcohol) 2 beers a day Comments Unknown Sex and Gender Information Value Date Recorded Sex Assigned at Not on file Legal Sex Female 12:00 AM BOOK REPAIRER Gender Identity Not on file Sexual Orientation Not on file documented as of this encounter Miscellaneous Notes * Telephone Encounter - Kristina Kirkpatrick RN - 09/28/2020 12:55 PM CDT Number for call back to Dr Covlin given to [facility]. * Telephone Encounter - Yoselyn Bunch - 09/28/2020 12:[address] Colvin is requesting a call from [facility]. No details was given [phone] documented in this encounter Plan of Treatment Not on file documented as of this encounter Visit Diagnoses Not on filedocumented in this encounter Care Teams Workers Compensation Specialist Relationship Specialty Start Date End Date Jason Isaacs MD PCP - General Internal Medicine 07/13/18 documented as of this encounter
--- OUTSIDE RECORDS SUMMARY | 2024-04-18 10:59 | XMS_ITS | Encounter Summary ---
Author Organization [facility] Address [address] [facility] [address] [place] [address] Care Team Providers Care Navy Fighter Pilot Name Role Phone Jason Isaacs MD Primary Care Provider [phone] Reason for Visit * Cardiology (Routine) - Closed Specialty Diagnoses / Procedures Referred By Contac t Referred To Contact Diagnoses PAF (paroxysmal atrial fibrillation) (CMS/HCC) ([facility]) Procedures ECG 12 lead Edilberto Oscar MD [address] [address] Phone: tel: fax: [facility] Referral ID Status Reason Start Date Expiration Date Visits Re quested Visits Authorized [id number] Closed 10/30/2020 11/29/2021 1 1 Encounter Details Date Type Department Care Team (Latest Contact Info) Description 10/31/2020 10:00 AM CDT Procedure visit [facility] Cardiology [address] [address] [address] [place] [address] PAF (paroxysmal atrial fibrillation) (CMS/HCC) Social History [...] on file Legal Sex Female 12:00 AM ENGINE ROOM OPERATOR Gender Identity Not on file [...] fibrillation documented in this encounter Care Teams Navy Fighter Pilot Relationship Specialty Start Date End Date Jason Isaacs MD PCP - General Internal Medicine 07/13/18 documented as of this encounter
--- OUTSIDE RECORDS SUMMARY | 2024-04-18 10:59 | XMS_ITS | Encounter Summary ---
Author Organization [facility] Address [address] [place] [address] Care Team Providers Care Typecasting Machine Operator Name Role Phone Jason Isaacs MD Primary Care Provider [phone] Reason for Visit * Reason Comments Follow-up 6 mo f/u Atrial Fibrillation Encounter Details Date Type Department Care Team ([facility] st Contact Info) Description 02/05/2022 9:45 AM CDT Office Visit [facility] Cardiology [address] [facility] [address] [place] [address] Edilberto Oscar MD [facility] [place] [phone] Encounter for monitoring flecainide therapy (Primary Dx); [...] on file Legal Sex Female 12:00 AM DISBURSING OFFICER Gender Identity Not on file Sexual Orientation [...] the addition of carvedilol Office visit with ROUTE JUMPER 10/10/2019: She called the office a few weeks ago with complaint of some chestheaviness and ???feeling funny. Her home blood pressure machine had given an irregular heart beat indication. Dr. Oscar advised a 7 day compensation and benefits analyst and stress testing. Since the week [...] sooner as clinically indicated. Edilberto Oscar MD, [facility] documented in this encounter Miscellaneous Notes [...] 12/17/2022 added in this encounter Care Teams Typecasting Machine Operator Relationship Specialty Start Date End Date Jason Isaacs MD PCP - General Internal Medicine 07/13/18 documented as of this encounter
--- OUTSIDE RECORDS SUMMARY | 2024-04-18 10:59 | XMS_ITS | Encounter Summary ---
Author Organization [facility] Group Address [address] [place] [address] Care Team Providers Care Tumbler Machine Operator Name Role Phone Jason Isaacs MD Primary Care Provider [phone] Encounter Details Date Type Department Care Team (Late st Contact Info) Description 12/06/2020 Telephone [facility] Cardiology [address] [place] [address] Edilberto Oscar MD [address] [phone] Social History Tobacco Use Types Packs/Day Years Used Date Smoking Tobacco: Former Cigarettes Q uit: 07/13/1998 Smokeless Tobacco: Never Alcohol Use Standard Drinks/Week Comments Yes 2 (1 standard drink = 0.6 oz pur e alcohol) 2 beers a day Comments Unknown Sex and Gender Information Value Date Recorded Sex Assigned at Not on file Legal Sex Female 12:00 AM OFFICE INSPECTOR Gender Identity Not on file Sexual [...] t he med until 12/08.please advise.Thank you Contact:[phone] documented in this encounter Plan of Treatment Not on file documented as of this encounter Visit Diagnoses Not on filedocumented in this encounter Care Teams Tumbler Machine Operator Relationship Specialty Start Date End Date Jason Isaacs MD PCP - General Internal Medicine 07/13/18 documented as of this encounter
--- OUTSIDE RECORDS SUMMARY | 2024-04-18 10:59 | XMS_ITS | Encounter Summary ---
Author Organization [facility] Address [address] [place] [address] Care Team Providers Care Drophammer Operator Name Role Phone Jason Isaacs MD Primary Care Provider [phone] Reason for Visit * Reason Comments Hospital Follow Up Atrial Fibrillation Encounter Details Date Type Department Care Team ([facility] Contact Info) Description 11/15/2020 9:30 AM CDT Office Visit [facility] Cardiology [address] [place] [address] Cathie Brody NP [address] [facility] [address] [place] [address] Atrial fibrillation, unspecified type (HCC); [...] on file Legal Sex Female 12:00 AM SYSTEMS LIBRARIAN Gender Identity Not on file Sexual Orientation [...] from the original note were not included. [facility] Cardiology [address] [place] [address] Date of Visit: 11/15/2020 Patient ID: Chasidy [...] indication. Dr. Oscar advised a 7 day clinical research monitor and stress testing. Since the week [...] visit. On 09/28/2020 she was admitted to [facility]. She presented there with palpitations, chest [...] TATYANA Noonan- Nurse Practition[place] [facility] [place] This note is dictated and transcribed using [employer] Software. Wildlife Biologist variancesmay occur. Despite proofreading, typographical errors may [...] 01/24/2021 added in this encounter Care Teams Drophammer Operator Relationship Specialty Start Date End Date Jason Isaacs MD PCP - General Internal Medicine 07/13/18 documented as of this encounter
--- OUTSIDE RECORDS SUMMARY | 2024-04-18 10:59 | XMS_ITS | Encounter Summary ---
Author Organization [facility] Address [address] [place] [address] Care Team Providers Care Ice Cream Machine Operator Name Role Phone Jason Isaacs MD Primary Care Provider [phone] Reason for Referral * Diagnostic Imaging (Routine) - Closed Specialty Diagnoses / Procedures Referred By Contac t Referred To Contact Cardiology Diagnoses PAF (paroxysmal atrial fibrillation) (CMS/HCC) (HCC) SOB (shortness of breath) Procedures NM MPI SPECT (Rest and/or Stress) Multiple Studies Jeane Gill MD [address] [address] Phone: tel: fax: Referral ID Status Reason Start Date Expiration Date Visits Re quested Visits Authorized [id number] Closed 06/24/2023 07/23/2024 1 1 HER OPERATOR * Cardiology (Routine) - Closed Specialty Diagnoses / Procedures [facility] Referred To Contact Diagnoses Essential hypertension SOB (shortness of breath) Procedures Transthoracic Echo (TTE) Complete W Doppler/CF Jeane Gill MD [address] [place] [address] Phone: tel: fax: [facility] Referral ID Status Reason Start Date Expiration Date Visits Re quested Visits Authorized [id number] Closed 06/24/2023 07/23/2024 1 1 HER OPERATOR Reason for Visit * Reason Comments Atrial Fibrillation Hypertension 6 mo f/u Encounter Details Date Type Department Care Team (Latest Contact Info) Description 06/24/2023 8:30 AM SLASHER OPERATOR Office Visit [facility] Cardiology [address] [place] [address] Jeane Gill MD [address] [address] Chronic anticoagulation (Primary Dx); PAF [...] on file Legal Sex Female 12:00 AM SLASHER OPERATOR Gender Identity Not on file Sexual Orientation Not on file documented as of this encounter Last Filed Vital Signs Vital Sign Reading Time Taken Comments Blood Pressure 136/68 06/24/2023 9:12 AM SLASHER OPERATOR Pulse 72 06/24/2023 8:51 AM SLASHER OPERATOR Temperature - - Respiratory Rate - - Oxygen Saturation 98% 06/24/2023 8:51 AM SLASHER OPERATOR Inhaled Oxygen Concentration - - Weight 67.6 kg (149 lb) 06/24/2023 8:51 AM SLASHER OPERATOR Height 175.3 cm (5' 9 ) 06/24/2023 8:51 AM SLASHER OPERATOR Body Mass Index 22 06/24/2023 8:51 AM SLASHER OPERATOR documented in this encounter Progress Notes [...] the addition of carvedilol Office visit with CONTRACT CONSULTANT 10/10/2019: She called the office a few weeks ago with complaint of some chestheaviness and ???feeling funny. Her home blood pressure machine had given an irregular heart beat indication. Dr. Gill advised a 7 day clinical research monitor [...] sooner as clinically indicated. Jeane Gill MD, [facility] HER OPERATOR documented in this encounter Miscellaneous Notes * Addendum Note - Mame Escobar MA - 06/24/2023 8:30 AM CSTAddended by: MAME ESCOBAR on: 06/24/2023 09:34 AM Modules accepted: Orders HER OPERATOR documented in this encounter Plan of Treatment Not on file documented as of this encounter Procedures Procedure Name Priority Date/Time Associated Diagnosis Comments ECG 12-LEAD Routine 06/24/2023 PAF (paroxysmal atrial fibrillation) (CMS/HCC) ([facility]) Encounter for monitoring flecainide therapy Essential hypertension SOB (shortness of breath) documented in this encounter Results * NM MPI SPECT (Rest and/or Stress) Multiple Studies (07/01/2023 9:24 AM SLASHER OPERATOR) Anatomical Region Laterality Modality Body N/A Nuclear Medicine 07/01/2023 8:26 AM SLASHER OPERATOR Narrative 07/02/2023 9:01 AM SLASHER OPERATOR [facility] Cardiology [address], [place] [address] [address], [place] [address] P:[phone] P:[phone] MPI Imaging Report Patient Name: CHASIDY THOMAS K : 1945 Study Date: 07/01/2023 8:26:21 AM Gender: F Tech: [facility] Location: [facility] Provider: JEANE GILL ?Height(Cm): 175.3 BSA: [...] is probably normal. Recommend follow up with front office java developer. Electronically Signed By: Shaggy Jackson MD 2023-07-02 09:00:48 SLASHER OPERATOR Electronically Signed By: Shaggy Jackson MD 2023-07-02 09:00:48 SLASHER OPERATOR Procedure Note Maykel Jackson MD - 07/02/2023 [facility] Cardiology [address] [facility] [address] [address] [address], [place], [place] [address] P:[phone] P:[phone] MPI Imaging Report Patient Name: CHASIDY THOMAS K : 1945 Study Date: 07/01/2023 8:26:21 AM Gender: F Tech: [facility] Location: [facility] Provider: JEANE GILL Height(Cm): 175.3 BSA: [...] is probably normal. Recommend follow up with front office java developer. Electronically Signed By: Shaggy Jackson MD 2023-07-02 09:00:48 SLASHER OPERATOR Electronically Signed By: Shaggy Jackson MD 2023-07-02 09:00:48 SLASHER OPERATOR Jeane Gill MD [facility] NM PROCEDURES Final R esult * TRANSTHORACIC ECHO (TTE) COMPLETE W DOPPLER/CF WO CONTRAST (06/30/2023 1:06 PM SLASHER OPERATOR) Anatomical Region Laterality Modality Ultrasound 06/30/2023 12:3 0 PM SLASHER OPERATOR Narrative 06/30/2023 4:00 PM SLASHER OPERATOR [facility] Cardiology [address] , [address], [place] [address] P:[phone] P:[phone] Echocardiographic Report Patient Name: CHASIDY THOMAS K [...] FINDINGS: Interpretation Site: Exam was interpreted at [facility]. Left Ventricle: Normal left ventricular systolic [...] regurgitation. Normal sinus rhythm. Electronically Signed By: eJane Gill MD 2023-06-30 16:00:40 SLASHER OPERATOR Procedure Note Jeane Gill MD - 06/30/2023 [facility] Cardiology [address], [address], [place] [address] P:[phone] P:[phone] Echocardiographic Report Patient Name: CHASIDY THOMAS K [...] FINDINGS: Interpretation Site: Exam was interpreted at [facility]. Left Ventricle: Normal left ventricular systolic [...] Signed By: Jeane Gill MD 2023-06-30 16:00:40 SLASHER OPERATOR Jeane Gill MD CV ECHO PROCEDURES Final Result * ECG 12 lead (06/24/2023) us Jeane Gill MD ECG ORDERABLES Final Res ult documented in this encounter Visit Diagnoses Diagnosis Chronic anticoagulation- Primary Encounter for long-term (current) use of anticoagulants PAF (paroxysmal atrial fibrillation) ([facility]) ([facility]) Atrial fibrillation Encounter for monitoring flecainide therapy Essential hypertension Unspecified essential hypertension SOB (shortness of breath) Shortness of breath Essential hypertension Unspecified essential hypertension SOB (shortness of breath) Shortness of breath PAF (paroxysmal atrial fibrillation) (CMS/HCC) (HCC) Atrial fibrillation SOB (shortness of breath) Shortness of breath documented in this encounter Care Teams Ice Cream Machine Operator Relationship Specialty Start Date End Date Jason Isaacs MD PCP - General Internal Medicine 07/13/18 documented as of this encounter
--- OUTSIDE RECORDS SUMMARY | 2024-04-18 10:59 | XMS_ITS | Encounter Summary ---
Author Organization [facility] Address [address] [place] [address] Care Team Providers Care Associate Professor Of Automation Name Role Phone Jason Isaacs MD Primary Care Provider [phone] Encounter Details Date Type Department Care Team (Late st Contact Info) Description 09/28/2020 Telephone [facility] Medical [facility] Cardiology [address] [facility] [address], [place] [address] Edilberto Oscar MD [address] [place] [address] [address] [place] [address] Social History Tobacco Use Types Packs/Day Years Used Date Smoking Tobacco: Former Cigarettes Q uit: 07/13/1998 Smokeless Tobacco: Never Alcohol Use Standard Drinks/Week Comments Yes 2 (1 standard drink = 0.6 oz pur e alcohol) 2 beers a day Comments Unknown Sex and Gender Information Value Date Recorded Sex Assigned at Not on file Legal Sex Female 12:00 AM PAINTING INSTRUCTOR Gender Identity Not on file Sexual Orientation [...] Patient has decided to go to [facility] and have her drive her. I called [facility] and gave report to Maru LAW. Faxed last OV and any recent testing we've had in the last year. Forwarding to [facility] as an FYI * Telephone Encounter - [...] on filedocumented in this encounter Care Teams Associate Professor Of Automation Relationship Specialty Start Date End Date Jason Isaacs MD PCP - General Internal Medicine 07/13/18 documented as of this encounter
--- OUTSIDE RECORDS SUMMARY | 2024-04-18 10:59 | XMS_ITS | Encounter Summary ---
Author Organization [facility] Address [address] [place] [address] Care Team Providers Care Cash Management Clerk Name Role Phone Jason Isaacs MD Primary Care Provider [phone] Reason for Visit * Reason Comments Follow-up 6 month follow up. Encounter Details Date Type Department Care Team (Latest Contact Info) Description 12/17/2022 8:30 AM CDT Office Visit [facility] Cardiology [address] [facility] [address] [facility] [address] [place] [address] Edilber[address] [facility] [place] [id number] Chronic anticoagulation (Primary Dx); PAF (paroxysmal atrial [...] on file Legal Sex Female 12:00 AM GUM MACHINE OPERATOR Gender Identity Not on file [...] the addition of carvedilol Office visit with INTEGRITY MANAGER 10/10/2019: She called the office a few weeks ago with complaint of some chestheaviness and ???feeling funny. Her home blood pressure machine had given an irregular heart beat indication. Dr. Oscar advised a 7 day chopper operator and stress testing. Since the week she [...] sooner as clinically indicated. Edilberto Oscar MD, [facility] documented in this encounter Plan of [...] documented as of this encounter Care Teams Cash Management Clerk Relationship Specialty Start Date End Date Jason Isaacs MD PCP - General Internal Medicine 07/13/18 documented as of this encounter
--- OUTSIDE RECORDS SUMMARY | 2024-04-18 10:59 | XMS_ITS | Encounter Summary ---
Author Organization [facility] Address [address] [place] [address] Care Team Providers Care Cork Sorter Name Role Phone Jason Isaacs MD Primary Care Provider [phone] Reason for Visit * Cardiology (Routine) - Closed Specialty Diagnoses / Procedures Referred By Contac t Referred To Contact Diagnoses Essential hypertension SOB (shortness of breath) Procedures Transthoracic Echo (TTE) Complete W Doppler/CF Jeane Gill MD [address] [address] Phone: tel: fax: [facility] Referral ID Status Reason Start Date Expiration Date Visits Re quested Visits Authorized [id number] Closed 06/24/2023 07/23/2024 1 1 Encounter Details Date Type Department Care Team (Latest Contact Info) Description 06/30/2023 12:30 PM NETWORKING SPECIALIST Ancillary Procedure [facility] Cardiology at [address] [place] [address] Essential hypertension; SOB (shortness of breath) Social [...] on file Legal Sex Female 12:00 AM NETWORKING SPECIALIST Gender Identity Not on file Sexual Orientation Not on file documented as of this encounter Plan of Treatment Not on file documented as of this encounter Procedures Procedure Name Priority Date/Time Associated Diagnosis Comments TRANSTHORACIC ECHO (TTE) COMPLETE W DOPPLER/CF WO CONTRAST Routine 06/30/2023 1:06 PM NETWORKING SPECIALIST Essential hypertension SOB (shortness of breath) documented in this encounter Results * TRANSTHORACIC ECHO (TTE) COMPLETE W DOPPLER/CF WO CONTRAST (06/30/2023 1:06 PM NETWORKING SPECIALIST) Anatomical Region Laterality Modality Ultrasound 06/30/2023 12:3 0 PM NETWORKING SPECIALIST Narrative 06/30/2023 4:00 PM NETWORKING SPECIALIST [facility] Cardiology [address], [address], [place] [address] P:[phone] P:[phone] Echocardiographic Report Patient Name: CHASIDY THOMAS K [...] FINDINGS: Interpretation Site: Exam was interpreted at [facility]. Left Ventricle: Normal left ventricular systolic [...] Signed By: Jeane Gill MD 2023-06-30 16:00:40 NETWORKING SPECIALIST Procedure Note Jeane Gill MD - 06/30/2023 [facility] Cardiology [address], [address], [place] [address] P:[phone] P:[phone] Echocardiographic Report Patient Name: CHASIDY THOMAS K [...] FINDINGS: Interpretation Site: Exam was interpreted at [facility]. Left Ventricle: Normal left ventricular systolic [...] Signed By: Jeane Gill MD 2023-06-30 16:00:40 NETWORKING SPECIALIST us Jeane Gill MD CV ECHO PROCEDURES Final Result documented in this encounter Visit Diagnoses Diagnosis Essential hypertension Unspecified essential hypertension SOB (shortness of breath) Shortness of breath documented in this encounter Care Teams Cork Sorter Relationship Specialty Start Date End Date Jason Isaacs MD PCP - General Internal Medicine 07/13/18 documented as of this encounter
--- OUTSIDE RECORDS SUMMARY | 2024-04-18 10:59 | XMS_ITS | Encounter Summary ---
Author Organization [facility] Address [address] [place] [address] Care Team Providers Care Knife Operator Name Role Phone Jason Isaacs MD Primary Care Provider [phone] Encounter Details Date Type Department Care Team (Late st Contact Info) Description 11/12/[address] [facility] Cardiology [address] [place] [address] Edilberto Oscar MD [address] [address] Social History Tobacco Use Types Packs/Day Years Used Date Smoking Tobacco: Former Cigarettes Q uit: 07/13/1998 Smokeless Tobacco: Never Alcohol Use Standard Drinks/Week Comments Yes 2 (1 standard drink = 0.6 oz pur e alcohol) 2 beers a day Comments Unknown Sex and Gender Information Value Date Recorded Sex Assigned at Not on file Legal Sex Female 12:00 AM GROUP BILLING COORDINATOR Gender Identity Not on file Sexual Orientation Not on file documented as of this encounter Miscellaneous Notes * Telephone Encounter - Graciela Ferrer, RN - 11/12/2020 2:37 PM CDT Spoke [...] at night.please call pt to assist.Thank you Contact:[phone] documented in this encounter Plan of Treatment Not on file documented as of this encounter Visit Diagnoses Not on filedocumented in this encounter Care Teams Knife Operator Relationship Specialty Start Date End Date Jason Isaacs MD PCP - General Internal Medicine 07/13/18 documented as of this encounter
--- OUTSIDE RECORDS SUMMARY | 2024-04-18 11:00 | XMS_ITS | Encounter Summary ---
Author Organization [facility] Address [address] [place] [address] Care Team Providers Care Youth Counselor Name Role Phone Jason Isaacs MD Primary Care Provider Reason for Visit * Reason Comments Follow-up 6mo PAF Hypertension Encounter Details Date Type Department Care Team (Latest Contact Info) Description 01/12/2020 10:15 AM CDT Office Visit [facility] Cardiology [address] [place] [address] Edilberto Oscar MD [facility] [place] [id number] Chronic anticoagulation (Primary Dx); Rheumatoid arthritis, involving [...] on file Legal Sex Female 12:00 AM BRAZING FURNACE OPERATOR Gender Identity Not on file Sexual [...] the addition of carvedilol Office visit with WORKFORCE MANAGEMENT CONSULTANT 10/10/2019: She called the office a few weeks ago with complaint of some chestheaviness and ???feeling funny. Her home blood pressure machine had given an irregular heart beat indication. Dr. Oscar advised a 7 day awake overnight monitor and stress testing. Since the week [...] sooner as clinically indicated Edilberto Oscar MD, [facility] documented in this encounter Miscellaneous Notes [...] stage documented in this encounter Care Teams Youth Counselor Relationship Specialty Start Date End Date Jason Isaacs MD PCP - General Internal Medicine 07/13/18 documented as of this encounter
--- OUTSIDE RECORDS SUMMARY | 2024-04-18 11:00 | XMS_ITS | Encounter Summary ---
Author Organization [facility] Address [address] [place] [address] Care Team Providers Care Powder Guard Name Role Phone Cristobal Olivas MD Primary Care Provider [phone] Reason for Visit * Reason Comments New Patient HFU on PAF, HTN Encounter Details Date Type Department Care Team (Latest Contact Info) Description 09/04/2017 9:45 AM CDT Office Visit [facility] [address] [place] [address] Edilberto Oscar MD [facility] [place] [phone] PAF (paroxysmal atrial fibrillation) (CMS/HCC) (Primary Dx); [...] on file Legal Sex Female 12:00 AM GOAT FARMER Gender Identity Not on file Sexual Orientation [...] sooner as clinically indicated. Edilberto Oscar MD, [facility] documented in this encounter Miscellaneous Notes [...] 12/10/2017 added in this encounter Care Teams Powder Guard Relationship Specialty Start Date End Date Cristobal Olivas MD [address] [place] [address] PCP - General Surgery 09/04/17 07/12/18 documented as of this encounter
--- OUTSIDE RECORDS SUMMARY | 2024-04-18 11:00 | XMS_ITS | Encounter Summary ---
Author Organization [facility] Address [address] [place] [address] Care Team Providers Care Technical Customer Support Specialist Name Role Phone Jason Isaacs MD Primary Care Provider [phone] Reason for Visit * Cardiology (Routine) - Closed Specialty Diagnoses / Procedures Referred By Contac t Referred To Contact Diagnoses Abnormal electrocardiogram (ECG) (EKG) Fatigue, unspecified type Procedures Transthoracic Echo Complete W Doppler/CF Willie Rizvi NP [address] [facility] [address] [address] Phone: tel: fax: [facility] Referral ID Status Reason Start Date Expiration Date Visits Re quested Visits Authorized [id number] Closed 05/29/2020 06/28/2021 1 1 Encounter Details Date Type Department Care Team (Latest Contact Info) Description 06/12/2020 4:00 PM SETTER UP Ancillary Procedure [facility] Medical [facility] Cardiology [address] [address] Abnormal electrocardiogram (ECG) (EKG) ; Fatigue, unspecified [...] on file Legal Sex Female 12:00 AM SETTER UP Gender Identity Not on file Sexual Orientation [...] DOPPLER/CF WO CONTRAST Routine 06/12/2020 12:52 PM SETTER UP Abnormal electrocardiogram (ECG) (EKG) Fatigue, unspecified type documented in this encounter Results * TRANSTHORACIC ECHO (TTE) COMPLETE W DOPPLER/CF WO CONTRAST (06/12/2020 12:52 PM SETTER UP) Anatomical Region Laterality Modality Ultrasound 06/12/2020 11:5 4 AM SETTER UP Narrative 06/12/2020 2:32 PM SETTER UP [facility] Cardiology [address] [facility] [address], [place] [address] [address] [facility] [address] [facility] [address], [place] [address] P:[phone] P:[phone] Echocardiographic Report Patient Name: CHASIDY THOMAS K : 1945 Study Date: 06/12/2020 11:54:36 AM Gender: F Tech: Location: [place] Ref.Provider: MELISSA Height(Cm): 175 BSA: 1.8 Weight(Kg): [...] Findings: Interpretation Site: Exam was interpreted at [facility]. Left Ventricle: Normal left ventricular systolic function. [...] Signed By: Shaggy Jackson MD 2020-06-12 14:32:06 SETTER UP Procedure Note Maykel Jackson MD - 06/12/2020 [facility] Cardiology [address] [facility] [address] [address] [address] [facility] [address], [place] [address] P:[phone] P:[phone] Echocardiographic Report Patient Name: CHASIDY THOMAS KPatient ID: [id number] : [id number] Date: 06/12/2020 11:54:36 AM Gender: FAccession #: [id number] Tech: GMLocation: [place] Ref.Provider: Za(Cm): 175 BSA: 1.8Weight(Kg): 65.32 Heart [...] 16.00 - 28.00 ] cc/m2 MV Decel Qmeh548 [ 150 - 200 ] msec ACS MM 1.87 cm PV Peak Vel0.92 [ 0.40 - 0.80 ] m/s TR Peak Vel2.70 [ 0.40 - 0.80 ] m/s TR Peak PG 29mmHg RVSP37.00 mmHg E'0.08 E/E' 12 Findings: Interpretation Site: Exam was interpreted at [facility]. Left Ventricle: Normal left ventricular systolic function. [...] Signed By: Shaggy Jackson MD 2020-06-12 14:32:06 SETTER UP Willie Rizvi NP CV ECHO PROCEDURES Final Result documented in this encounter Visit Diagnoses Diagnosis Abnormal electrocardiogram (ECG) (EKG) Fatigue, unspecified type documented in this encounter Care Teams Technical Customer Support Specialist Relationship Specialty Start Date End Date Jason Isaacs MD PCP - General Internal Medicine 07/13/18 documented as of this encounter
--- OUTSIDE RECORDS SUMMARY | 2024-04-18 11:00 | XMS_ITS | Encounter Summary ---
Author Organization [facility] Address [address] [place] [address] Care Team Providers Care Dental Hygiene Instructor Name Role Phone Jason Isaacs MD Primary Care Provider [phone] Reason for Visit * Diagnostic Imaging (Routine) - Closed Specialty Diagnoses / Procedures Referred By Contac t Referred To Contact Diagnoses PAF (paroxysmal atrial fibrillation) (CMS/HCC) (HCC) Procedures NM MPI SPECT (Rest and/or Stress) Multiple Studies Edilberto Gill MD [address] [address] Phone: tel: fax: [facility] Referral ID Status Reason Start Date Expiration Date Visits Re quested Visits Authorized [id number] Closed 09/15/2019 03/26/2021 1 1 Encounter Details Date Type Department Care Team (Latest Contact Info) Description 09/29/2019 10:15 AM CDT Ancillary Procedure [facility] Cardiology [address] [facility] [address] [place] [address] PAF (paroxysmal atrial fibrillation) (CMS/HCC) Social History [...] file Legal Sex Female 12:00 AM STOCK ASSOCIATE Gender Identity Not on file Sexual [...] 11:28 AM CDT PAF (paroxysmal atrial fibrillation) ([facility]) documented in this encounter Results * NM MPI SPECT (Rest and/or Stress) Multiple Studies (09/29/2019 11:28 AM CDT) Anatomical Region Laterality Modality Body N/A Nuclear Medicine 09/29/2019 9:25 AM CDT Narrative 09/29/2019 5:34 PM CDT [facility] Cardiology [address] [facility] [address], [place] [address] [address] [facility] [address], [place] [address] P:[phone] P:[phone] MPI Imaging Report Patient Name: CHASIDY VELEZ K : 1945 Study Date: 09/29/2019 9:25:52 AM Gender: F Tech: [facility] Location: [place] Ref.Provider: EDILBERTO GILL Height(Cm): 175.3 BSA: ??Weight(Kg): [...] Procedure Note Edilberto Gill MD - 09/29/2019 [facility] Cardiology [address] [facility] [address], [place] [address] [address] [facility] [address], [place] [address] P:[phone] P:[phone] MPI Imaging Report Patient Name: CHASIDY VELEZ K : 1946 Study Date: 09/29/2019 9:25:52 AM Gender: F Tech: [facility] Location: [place] Ref.Provider: EDILBERTO GILL Height(Cm): 175.3 BSA: Weight(Kg): [...] millicuries documented in this encounter Care Teams Dental Hygiene Instructor Relationship Specialty Start Date End Date Jason Isaacs MD PCP - General Internal Medicine 07/13/18 documented as of this encounter
--- OUTSIDE RECORDS SUMMARY | 2024-04-18 11:00 | XMS_ITS | Encounter Summary ---
Author Organization [facility] Address [address] [place] [address] Care Team Providers Care Aquatic Biologist Name Role Phone Jason Isaacs MD Primary Care Provider [phone] Reason for Visit * Reason Onset Date Comments cardiac clearance needed 10/12/2019 Encounter Details Date Type Department Care Team (Late st Contact Info) Description 10/12/2019 Telephone [facility] Cardiology [address] [facility] [address] [place] [address] Edilberto Oscar MD [address] [place] [id number] cardiac clearance needed Social History Tobacco Use Types Packs/Day Years Used Date Smoking Tobacco: Former Cigarettes Q uit: 07/13/1998 Smokeless Tobacco: Never Alcohol Use Standard Drinks/Week Comments Yes 2 (1 standard drink = 0.6 oz pur e alcohol) 2 beers a day Comments Unknown Sex and Gender Information Value Date Recorded Sex Assigned at Not on file Legal Sex Female 12:00 AM ENGRAVER Gender Identity Not on file Sexual Orientation [...] review and comment. Return fax number is [phone]. * Telephone Encounter - Erica Slater - 10/12/2019 9:34 AM CDT Marisol janeth/ [facility] called requesting cardiac clearance pt is pending sale to [facility] for surgery 10-18-2019. cb Marisol [phone] documented in this encounter Plan of Treatment Not on file documented as of this encounter Visit Diagnoses Not on filedocumented in this encounter Care Teams Aquatic Biologist Relationship Specialty Start Date End Date Jason Isaacs MD PCP - General Internal Medicine 07/13/18 documented as of this encounter
--- OUTSIDE RECORDS SUMMARY | 2024-04-18 11:00 | XMS_ITS | Encounter Summary ---
Author Organization [facility] Address [address] [place] [address] Care Team Providers Care Label Pinker Name Role Phone Jason Isaacs MD Primary Care Provider [phone] Encounter Details Date Type Department Care Team (Late st Contact Info) Description 04/07/2019 Telephone [facility] [address] [facility] [address] [place] [address] Edilberto Oscar MD [address] [id number] Social History Tobacco Use Types Packs/Day Years Used Date Smoking Tobacco: Former Cigarettes Q uit: 07/13/1998 Smokeless Tobacco: Never Alcohol Use Standard Drinks/Week Comments Yes 2 (1 standard drink = 0.6 oz pur e alcohol) 2 beers a day Comments Unknown Sex and Gender Information Value Date Recorded Sex Assigned at Not on file Legal Sex Female 12:00 AM BROKER AGRICULTURAL PRODUCE Gender Identity Not on file Sexual Orientation Not on file documented as of this encounter Miscellaneous Notes * Telephone Encounter - Yuni Duran MA - 04/07/2019 2:25 PM CST Samples up front, patient aware. ER AGRICULTURAL PRODUCE * Telephone Encounter - Ninfa Pascal - 04/07/2019 1:42 PM CST Pt called to request samples of the xarelto 15 mg tabs. cb [phone] ER AGRICULTURAL PRODUCE documented in this encounter Plan of Treatment Not on file documented as of this encounter Visit Diagnoses Not on filedocumented in this encounter Care Teams Label Pinker Relationship Specialty Start Date End Date Jason Isaacs MD PCP - General Internal Medicine 07/13/18 documented as of this encounter
--- OUTSIDE RECORDS SUMMARY | 2024-04-18 11:00 | XMS_ITS | Encounter Summary ---
Author Organization [facility] Address [address] [place] [address] Care Team Providers Care Investor Relations Coordinator Name Role Phone Cristobal Olivas MD Primary Care Provider [phone] Jason Isaacs MD Primary Care Provider [phone] Encounter Details Date Type Department Care Team (Late st Contact Info) Description 07/09/2018 Telephone [facility] [address] [place] [phone] Edilberto Oscar MD [address] [place] [address] Social History Tobacco Use Types Packs/Day Years Used Date Smoking Tobacco: Never Smokeless Tobacco: Never Alcohol Use Standard Drinks/Week Comments Yes 2 (1 standard drink = 0.6 oz pur e alcohol) 2 beers a day Comments Unknown Sex and Gender Information Value Date Recorded Sex Assigned at Not on file Legal Sex Female 12:00 AM ELECTRONIC SPECIALIST Gender Identity Not on file Sexual [...] wants a call back to discuss. cb [phone] documented in this encounter Plan of Treatment Not on file documented as of this encounter Visit Diagnoses Not on filedocumented in this encounter Care Teams Investor Relations Coordinator Relationship Specialty Start Date End Date Cristobal Olivas MD [address] [place] [address] PCP - General Surgery 09/04/17 07/12/18 Jason Isaacs MD [address] [place] [address] PCP - General Internal Medicine 07/13/18 documented as of this encounter
--- OUTSIDE RECORDS SUMMARY | 2024-04-18 11:00 | XMS_ITS | Encounter Summary ---
Author Organization [facility] Address [address] [facility] [address] [place] [address] Care Team Providers Care Yard Jacker Name Role Phone Cristobal Olivas MD Primary Care Provider [phone] Reason for Visit * Reason Comments Follow-up No problem Encounter Details Date Type Department Care Team ([facility] Contact Info) Description 01/12/2018 11:30 AM CDT Office Visit [facility] [address] [facility] [address] [place] [address] Cathie Brody NP [address] [facility] [address] [place] [address] PAF (paroxysmal atrial fibrillation) (CMS/HCC) [...] on file Legal Sex Female 12:00 AM GENERAL COUNSELOR Gender Identity Not on file Sexual Orientation [...] bleeding problems 3-month follow-up visit 01/12/2018 with NUCLEAR OPERATOR: She has no complaints or concerns [...] This note is dictated and transcribed using [employer] Fluency Direct Software. Video Game Programmer variancesmay occur. Despite proofreading, typographical errors may occur. documented in this encounter Plan of Treatment Not on file documented as of this encounter Visit Diagnoses Diagnosis PAF (paroxysmal atrial fibrillation) (CMS/HCC) (HCC)- Primary Atrial fibrillation Essential hypertension Unspecified essential hypertension Chronic anticoagulation Encounter for long-term (current) use of anticoagulants documented in this encounter Care Teams Yard Jacker Relationship Specialty Start Date End Date Cristobal Olivas MD [address] [place] [address] PCP - General Surgery 09/04/17 3 documented as of this encounter
--- OUTSIDE RECORDS SUMMARY | 2024-04-18 11:00 | XMS_ITS | Encounter Summary ---
Author Organization [facility] Facility Care Team Providers Care Technical Sales Advisor Name Role Phone Jason Isaacs MD Primary Care Provider [phone] Encounter Details Date Type Department Care Team [...] on file Legal Sex Female 12:00 AM BALLET SOLOIST Gender Identity Not on file Sexual Orientation Not on file documented as of this encounter Plan of Treatment Not on file documented as of this encounter Visit Diagnoses Not on filedocumented in this encounter Care Teams Technical Sales Advisor Relationship Specialty Start Date End Date Jason Isaacs MD PCP - General Internal Medicine 07/13/18 documented as of this encounter
--- OUTSIDE RECORDS SUMMARY | 2024-04-18 11:00 | XMS_ITS | Encounter Summary ---
Author Organization [facility] Address [address] [facility] [address] [place] [address] Care Team Providers Care Choir Singer Name Role Phone No, Physician Primary Care Provider [phone] Encounter Details Date Type Department Care Team ([facility] st Contact Info) Description 07/08/2017 Telephone [facility] [address] [address] Johana Huff RMA Social History Tobacco Use Types Packs/Day Years Used Date Smoking Tobacco: Never Assessed Comments Unknown Sex and Gender Information Value Date Recorded Sex Assigned at Not on file Legal Sex Female 12:00 AM MANAGER PATIENT Gender Identity Not on file Sexual Orientation Not on file documented as of this encounter Miscellaneous Notes * Telephone Encounter - Johana Huff MA - 07/10/2017 9:36 AM CDT The pt was calling to r/s her appt documented in this encounter Plan of Treatment Not on file documented as of this encounter Visit Diagnoses Not on filedocumented in this encounter Care Teams Choir Singer Relationship Specialty Start Date End Date No, Physician PCP - General 07/07/17 09/03/17 documented as of this encounter
--- OUTSIDE RECORDS SUMMARY | 2024-04-18 11:00 | XMS_ITS | Encounter Summary ---
Author Organization [facility] Address [address] [address] [place] [address] Care Team Providers Care Utility Worker Forge Name Role Phone Cristobal Olivas MD Primary Care Provider [phone] Encounter Details Date Type Department Care Team (Late st Contact Info) Description 10/16/2017 Telephone [facility] [address] [facility] [address], [place] [address] Edilberto Oscar MD [address] [place] [address] [address] [place], [place] [phone] Social History Tobacco Use Types Packs/Day Years Used Date Smoking Tobacco: Never Smokeless Tobacco: Never Alcohol Use Standard Drinks/Week Comments Yes 2 (1 standard drink = 0.6 oz pur e alcohol) 2 beers a day Comments Unknown Sex and Gender Information Value Date Recorded Sex Assigned at Not on file Legal Sex Female 12:00 AM HOSPICE VOLUNTEER COORDINATOR Gender Identity Not on file Sexual [...] pt will like a call back # [phone]. Pt is also needing a letter faxed over to Dr. Dwayne Arrieta stating that its ok for her to hold off on her Xarelto for one day, pt suppose to have cataract surgery on November 05. fax # [phone], Phone number [phone]. documented in this encounter Plan of Treatment Not on file documented as of this encounter Visit Diagnoses Not on filedocumented in this encounter Care Teams Utility Worker Forge Relationship Specialty Start Date End Date Cristobal Olivas MD [address] [place] [address] PCP - General Surgery 09/04/17 07/12/18 documented as of this encounter
--- OUTSIDE RECORDS SUMMARY | 2024-04-18 11:00 | XMS_ITS | Encounter Summary ---
Author Organization [facility] Address [address] [facility] [address] [place] [address] Care Team Providers Care Forensic Psychologist Name Role Phone Jason Isaacs MD Primary Care Provider [phone] Encounter Details Date Type Department Care Team (Late st Contact Info) Description 05/17/2020 Telephone [facility] Cardiology [address] [place] [address] Edilberto Oscar MD [address] [address] Social History Tobacco Use Types Packs/Day Years Used Date Smoking Tobacco: Former Cigarettes Q uit: 07/13/1998 Smokeless Tobacco: Never Alcohol Use Standard Drinks/Week Comments Yes 2 (1 standard drink = 0.6 oz pur e alcohol) 2 beers a day Comments Unknown Sex and Gender Information Value Date Recorded Sex Assigned at Not on file Legal Sex Female 12:00 AM MASTIC SPRAYER Gender Identity Not on file Sexual Orientation Not on file documented as of this encounter Miscellaneous Notes * Telephone Encounter - Rosenda Shahid RN - 05/17/2020 3:57 PM CST Message given to [facility] IC SPRAYER * Telephone Encounter - Ninfa Pascal - 05/17/2020 3:[address] Gomez called to speak with to provide an update on pt. cb [phone] press # [phone] IC SPRAYER documented in this encounter Plan of Treatment Not on file documented as of this encounter Visit Diagnoses Not on filedocumented in this encounter Care Teams Forensic Psychologist Relationship Specialty Start Date End Date Jason Isaacs MD PCP - General Internal Medicine 07/13/18 documented as of this encounter
--- OUTSIDE RECORDS SUMMARY | 2024-04-18 11:00 | XMS_ITS | Encounter Summary ---
Author Organization [facility] Address [address] [facility] [address] [place] [address] Care Team Providers Care Auto Wrecker Name Role Phone No, Physician Primary Care Provider [phone] Encounter Details Date Type Department Care Team ([facility] st Contact Info) Description 07/27/2017 Telephone [facility] [address] [facility] [address] [phone] Edilberto Oscar MD [address] [place] [address] [address] [place] [address] Social History Tobacco Use Types Packs/Day Years Used Date Smoking Tobacco: Never Assessed Comments Unknown Sex and Gender Information Value Date Recorded Sex Assigned at Not on file Legal Sex Female 12:00 AM LIBRARY TECHNOLOGY INSTRUCTOR Gender Identity Not on file Sexual [...] on filedocumented in this encounter Care Teams Auto Wrecker Relationship Specialty Start Date End Date No, Physician PCP - General 07/07/17 09/03/17 documented as of this encounter
--- OUTSIDE RECORDS SUMMARY | 2024-04-18 11:00 | XMS_ITS | Encounter Summary ---
Author Organization [facility] Address [address] [facility] [address] [place] [address] Care Team Providers Care Email Campaign Manager Name Role Phone Jason Isaacs MD Primary Care Provider [phone] Reason for Visit * Reason Comments Atrial Fibrillation Hypertension 6 mo f/u Encounter Details Date Type Department Care Team (Late st Contact Info) Description 07/13/2018 9:45 AM CDT Office Visit [facility] [address] [facility] [address] [place] [address] Edilberto Oscar MD [facility] [place] [id number] PAF (paroxysmal atrial fibrillation) (CMS/HCC) (Primary Dx); [...] on file Legal Sex Female 12:00 AM BOBBIN WASHER Gender Identity Not on file Sexual Orientation [...] for this visit: PAF (paroxysmal atrial fibrillation) ([facility]/HCC) (Primary) Remains in sinus rhythm and [...] sooner as clinically indicated. Edilberto Oscar MD, [facility] documented in this encounter Miscellaneous Notes * Addendum Note - Mame Escobar MA - 07/13/2018 9:45 AM CDTAddended by: MAME ESCOBAR on: 07/13/2018 11:10 AM Modules accepted: Orders documented in this encounter Plan of Treatment Scheduled Orders Name Type Priority Associated Diagnoses Orde r Schedule Basic metabolic panel Lab Routine PAF (paroxysmal atrial fibrillation) ([facility]/HCC) Chronic anticoagulation 1 Occurrences starting 07/13/2018 [...] 07/25/2019 added in this encounter Care Teams Email Campaign Manager Relationship Specialty Start Date End Date Jason Isaacs MD PCP - General Internal Medicine 07/13/18 documented as of this encounter
--- OUTSIDE RECORDS SUMMARY | 2024-04-18 11:00 | XMS_ITS | Encounter Summary ---
Author Organization [facility] Facility Care Team Providers Care Respiratory Services Manager Name Role Phone Jason Isaacs MD Primary Care Provider [phone] Encounter Details Date Type Department Care Team [...] on file Legal Sex Female 12:00 AM SEAT SCOOPER MACHINE Gender Identity Not on file Sexual Orientation Not on file documented as of this encounter Plan of Treatment Not on file documented as of this encounter Visit Diagnoses Not on filedocumented in this encounter Care Teams Respiratory Services Manager Relationship Specialty Start Date End Date Jason Isaacs MD PCP - General Internal Medicine 07/13/18 documented as of this encounter
--- OUTSIDE RECORDS SUMMARY | 2024-04-18 11:00 | XMS_ITS | Encounter Summary ---
Author Organization [facility] Address [address] [facility] [address] [place] [address] Care Team Providers Care Senior Analyst Market Intelligence Name Role Phone No, Physician Primary Care Provider [phone] Encounter Details Date Type Department Care Team ([facility] st Contact Info) Description 07/17/2017 Orders Only [facility] Cardiology [address] [place] [address] Provider, Aarti, [address] [place], [place] [id number] Social History Tobacco Use Types Packs/Day Years Used Date Smoking Tobacco: Never Assessed Comments Unknown Sex and Gender Information Value Date Recorded Sex Assigned at Not on file Legal Sex Female 12:00 AM SUPERVISOR MOLDING Gender Identity Not on file Sexual Orientation [...] on filedocumented in this encounter Care Teams Senior Analyst Market Intelligence Relationship Specialty Start Date End Date No, Physician PCP - General 07/07/17 09/03/17 documented as of this encounter
--- OUTSIDE RECORDS SUMMARY | 2024-04-18 11:00 | XMS_ITS | Encounter Summary ---
Author Organization [facility] Address [address] [facility] [address] [place] [address] Care Team Providers Care Hide Paster Name Role Phone Jason Isaacs MD Primary Care Provider [phone] Encounter Details Date Type Department Care Team (Late st Contact Info) Description 07/19/2018 Telephone [facility] [address] [facility] [address] [place] [address] Edilberto Oscar MD [address] [address] Social History Tobacco Use Types Packs/Day Years Used Date Smoking Tobacco: Former Cigarettes Q uit: 07/13/1998 Smokeless Tobacco: Never Alcohol Use Standard Drinks/Week Comments Yes 2 (1 standard drink = 0.6 oz pur e alcohol) 2 beers a day Comments Unknown Sex and Gender Information Value Date Recorded Sex Assigned at Not on file Legal Sex Female 12:00 AM BAND SPLICER Gender Identity Not on file Sexual Orientation Not on file documented as of this encounter Miscellaneous Notes * Telephone Encounter - Genesis Hilario MA - 07/26/2018 9:51 AM CDT Spoke with pt, she voiced understanding that her samples are ready for her at the it help desk manager * Telephone Encounter - Yoselyn Bunch - 07/26/2018 9:02 AM CDT Pt called requesting to sheepskin pickler samples of Xarelto 15 mg today around 10-11 am, pt cb [phone] * Telephone Encounter - Nati Quiroz RN - 07/20/2018 10:20 AM CDT Called pt , she said Dr Oscar told her to call us about samples of Xarelto 15 mg, told her I will leave some samples at the it help desk manager, she will sheepskin pickler in a week or so. * Telephone Encounter - Yane Gautam - 07/20/2018 9:15 AM CDT Pt returned call. cb [phone] * Telephone Encounter - Nati Quiroz RN - 07/19/2018 4:[address] Ocsar, Her creatinine clearance is less than 50 [...] on filedocumented in this encounter Care Teams Hide Paster Relationship Specialty Start Date End Date Jason Isaacs MD PCP - General Internal Medicine 07/13/18 documented as of this encounter
--- OUTSIDE RECORDS SUMMARY | 2024-04-18 11:00 | XMS_ITS | Encounter Summary ---
Author Organization [facility] Address [address] [facility] [address] [place] [address] Care Team Providers Care Environmental Issues Instructor Name Role Phone Jason Isaacs MD Primary Care Provider [phone] Reason for Referral * (Routine) - Closed Specialty Diagnoses / Procedures [facility] Referred To Contact Diagnoses PAF (paroxysmal atrial fibrillation) (CMS/HCC) (HCC) Procedures [facility] Mobile Cardiac Telemetry Event Monitor Jeane Gill MD [address] [address] Phone: tel: fax: [facility] Referral ID Status Reason Start Date Expiration Date Visits Re quested Visits Authorized [id number] Closed 09/15/2019 03/26/2021 1 1 * Diagnostic Imaging (Routine) - Closed Specialty Diagnoses / Procedures [facility] Referred To Contact Diagnoses PAF (paroxysmal atrial fibrillation) (CMS/HCC) (HCC) Procedures NM MPI SPECT (Rest and/or Stress) Multiple Studies Jeane Gill MD [address] [facility] [address] Phone: tel: fax: [facility] [employer] Referral ID Status Reason Start Date Expiration Date Visits Re quested Visits Authorized [id number] Closed 09/15/2019 03/26/2021 1 1 Encounter Details Date Type Department Care Team (Late st Contact Info) Description 09/15/2019 Telephone [facility] Cardiology [address] [place] [address] Jeane Gill MD [address] [facility] [address] [place] [address] Social History Tobacco Use Types Packs/Day Years Used Date Smoking Tobacco: Former Cigarettes Q uit: 07/13/1998 Smokeless Tobacco: Never Alcohol Use Standard Drinks/Week Comments Yes 2 (1 standard drink = 0.6 oz pur e alcohol) 2 beers a day Comments Unknown Sex and Gender Information Value Date Recorded Sex Assigned at Not on file Legal Sex Female 12:00 AM MEDART OPERATOR Gender Identity Not on file Sexual [...] for a Lexiscan and a 7 day environmental monitoring technician. Follow up with mandy in off to [...] call to discuss her pending knee surgery. [phone] documented in this encounter Plan of Treatment Pending Results Name Type Priority Associated Diagnoses Date /Time [facility] Mobile Cardiac Telemetry Event Monitor Cardiac Services Routine PAF (paroxysmal atrial fibrillation) ([facility]) 09/20/2019 3:03 PM CDT Scheduled Orders Name Type Priority Associated Diagnoses Orde r Schedule [facility] Mobile Cardiac Telemetry Event Monitor Cardiac Services Routine PAF (paroxysmal atrial fibrillation) ([facility]) Expected: 09/15/2019, Expires: 09/14/2020 documented as of this encounter Results * NM MPI SPECT (Rest and/or Stress) Multiple Studies (09/29/2019 11:28 AM CDT) Anatomical Region Laterality Modality Body N/A Nuclear Medicine 09/29/2019 9:25 AM CDT Narrative 09/29/2019 5:34 PM CDT [facility] Cardiology [address], [place] [address] [address] [facility] [address], [place] [address] P:[phone] P:[phone] MPI Imaging Report Patient Name: CHASIDY THOMAS K : 1945 Study Date: 09/29/2019 9:25:52 AM Gender: F Tech: [facility] Location: [place] Ref.Provider: JEANE GILL Height(Cm): 175.3 BSA: ??Weight(Kg): [...] Procedure Note Jeane Gill MD - 09/29/2019 [facility] Cardiology [address], [place] [address] [address], [place] [address] P:[phone] P:[phone] MPI Imaging Report Patient Name: CHASIDY THOMAS K : 1945 Study Date: 09/29/2019 9:25:52 AM Gender: F Tech: [facility] Location: [place] Ref.Provider: JEANE GILL Height(Cm): 175.3 BSA: Weight(Kg): [...] fibrillation documented in this encounter Care Teams Environmental Issues Instructor Relationship Specialty Start Date End Date Jason Isaacs MD PCP - General Internal Medicine 07/13/18 documented as of this encounter
--- OUTSIDE RECORDS SUMMARY | 2024-04-18 11:00 | XMS_ITS | Encounter Summary ---
Author Organization [facility] Medical [facility] Address [address] [place] [address] Care Team Providers Care Banquet Waiter/Waitress Name Role Phone Jason Isaacs MD Primary Care Provider Reason for Visit * (Routine) - Closed Specialty Diagnoses / Procedures Referred By Contac t Referred To Contact Diagnoses PAF (paroxysmal atrial fibrillation) (CMS/HCC) (HCC) Procedures MCT Mobile Cardiac Telemetry Event Monitor Edilberto Oscar MD [address] [id number] Phone: tel: fax: [facility] Referral ID Status Reason Start Date Expiration Date Visits Re quested Visits Authorized [id number] Closed 09/15/2019 03/26/2021 1 1 Encounter Details Date Type Department Care Team (Latest Contact Info) Description 09/20/2019 1:00 PM CDT Ancillary Procedure [facility] Medical [facility] Cardiology [address] [address] [address] [place] [address] PAF (paroxysmal atrial fibrillation) (CMS/HCC) Social History [...] on file Legal Sex Female 12:00 AM PURCHASE ORDER CHECKER Gender Identity Not on file Sexual Orientation Not on file documented as of this encounter Procedure Notes * Edilberto Oscar MD - 09/26/2019 12:00 AM CDT SEVEN-DAY FIELD ACCOUNT DIRECTOR Indication Paroxysmal atrial fibrillation. Time Monitored 5 [...] No atrial fibrillation. Job ID/VF Job ID: [id number] documented in this encounter Plan of Treatment Pending Results Name Type Priority Associated Diagnoses Date /Time MCT Mobile Cardiac Telemetry Event Monitor Cardiac Services Routine PAF (paroxysmal atrial fibrillation) (CMS/HCC) 09/20/2019 3:03 PM CDT documented as of this encounter Visit Diagnoses Diagnosis PAF (paroxysmal atrial fibrillation) (CMS/HCC) (HCC) Atrial fibrillation documented in this encounter Care Teams Banquet Waiter/Waitress Relationship Specialty Start Date End Date Jason Isaacs MD PCP - General Internal Medicine 07/13/18 documented as of this encounter
--- OUTSIDE RECORDS SUMMARY | 2024-04-18 11:00 | XMS_ITS | Encounter Summary ---
Author Organization [facility] Medical [facility] Address [address] [place] [address] Care Team Providers Care Wire Insulator Name Role Phone Jason Isaacs MD Primary Care Provider [phone] Reason for Referral * Cardiology (Routine) - Closed Specialty Diagnoses / Procedures Referred By Contac t Referred To Contact Diagnoses Abnormal electrocardiogram (ECG) (EKG) Fatigue, unspecified type Procedures Transthoracic Echo Complete W Doppler/CF Cathie Rizvi NP [address] [place] [address] Phone: tel: fax: [facility] Referral ID Status Reason Start Date Expiration Date Visits Re quested Visits Authorized [id number] Closed 05/29/2020 06/28/2021 1 1 N RESOURCES ANALYST Reason for Visit * Reason Comments Shortness of Breath started several week s ago and PCP recommended visit with sales and service associate. Rapid Heart Rate Fatigue Encounter Details Date Type Department Care Team (Late st Contact Info) Description 05/29/2020 9:30 AM HUMAN RESOURCES ANALYST Office Visit [facility] Medical [facility] Cardiology [address] [place] [phone] Cathie Rizvi NP [address] [place], [place] [phone] Fatigue, unspecified type (Primary Dx); PAF (paroxysmal [...] on file Legal Sex Female 12:00 AM HUMAN RESOURCES ANALYST Gender Identity Not on file Sexual Orientation Not on file documented as of this encounter Last Filed Vital Signs Vital Sign Reading Time Taken Comments Blood Pressure 132/68 05/29/2020 9:48 AM HUMAN RESOURCES ANALYST Pulse 107 05/29/2020 9:48 AM HUMAN RESOURCES ANALYST Temperature - - Respiratory Rate - - Oxygen Saturation 99% 05/29/2020 9:48 AM HUMAN RESOURCES ANALYST Inhaled Oxygen Concentration - - Weight 65.7 kg (144 lb 12.8 oz) 021 9:48 AM HUMAN RESOURCES ANALYST Height 175.3 cm (5' 9 ) 05/29/2020 9:48 AM HUMAN RESOURCES ANALYST Body Mass Index 21.38 05/29/2020 9:48 AM HUMAN RESOURCES ANALYST documented in this encounter Ordered Prescriptions Prescription [...] from the original note were not included. [facility] Medical Group Cardiology [address] [place] [address] Date of Visit: 05/29/2020 Patient ID: Chasidy [...] the addition of carvedilol Office visit with ORACLE MANAGER 10/10/2019: She called the office a few weeks ago with complaint of some chestheaviness and ???feeling funny. Her home blood pressure machine had given an irregular heart beat indication. Dr. Oscar advised a 7 day retail advisor and stress testing. Since the week she [...] orthopnea, edema or palpitations. Office visit with ORACLE MANAGER 05/29/2020: For the last several weeks (3 [...] agreed. Cathie Rizvi, TATYANA- Nurse Practitioner with [facility] Cardiology This note is dictated and transcribed using [employer] Direct Software. Welder Experimental variancesmay occur. Despite proofreading, typographical errors may occur. Cosigned by Edilberto Oscar MD at 05/30/2020 9:28 AM HUMAN RESOURCES ANALYST N RESOURCES ANALYST N RESOURCES ANALYST documented in this encounter Plan of Treatment Not on file documented as of this encounter Results * TRANSTHORACIC ECHO (TTE) COMPLETE W DOPPLER/CF WO CONTRAST (06/12/2020 12:52 PM HUMAN RESOURCES ANALYST) Anatomical Region Laterality Modality Ultrasound 06/12/2020 11:5 4 AM HUMAN RESOURCES ANALYST Narrative 06/12/2020 2:32 PM HUMAN RESOURCES ANALYST [facility] Medical Group Cardiology [address], [place] [address] [address], [place] [address] P:[phone] P:[phone] Echocardiographic Report Patient Name: CHASIDY THOMASDomingo : 04-24-1946 Study Date: 06/12/2020 11:54:36 AM Gender: F Tech: Location: [place] Ref.Provider: MELISSA Height(Cm): 175 BSA: 1.8 Weight(Kg): [...] Findings: Interpretation Site: Exam was interpreted at [facility]. Left Ventricle: Normal left ventricular systolic [...] Signed By: Shaggy Jackson MD 2020-06-12 14:32:06 HUMAN RESOURCES ANALYST Procedure Note Maykel Jackson MD - 06/12/2020 [facility] Medical [facility] Cardiology [address], [place] [address] [address] [facility] [address], [place], [place] [address] P:[phone] P:[phone] Echocardiographic Report Patient Name: CHASIDY THOMAS KPatient ID: [id number] : [id number] Date: 06/12/2020 11:54:36 AM Gender: FAccession #: [id number] Tech: GMLocation: [place] Ref.Provider: Za(Cm): 175 BSA: 1.8Weight(Kg): 65.32 Heart [...] 16.00 - 28.00 ] cc/m2 MV Decel Qkjy845 [ 150 - 200 ] msec ACS MM 1.87 cm PV Peak Vel0.92 [ 0.40 - 0.80 ] m/s TR Peak Vel2.70 [ 0.40 - 0.80 ] m/s TR Peak PG 29mmHg RVSP37.00 mmHg E'0.08 E/E' 12 Findings: Interpretation Site: Exam was interpreted at [facility]. Left Ventricle: Normal left ventricular systolic [...] Signed By: Shaggy Jackson MD 2020-06-12 14:32:06 HUMAN RESOURCES ANALYST Cathie Rizvi NP CV ECHO PROCEDURES Final [...] 11/15/2020 added in this encounter Care Teams Wire Insulator Relationship Specialty Start Date End Date Jason Isaacs MD PCP - General Internal Medicine 07/13/18 documented as of this encounter
--- OUTSIDE RECORDS SUMMARY | 2024-04-18 11:00 | XMS_ITS | Encounter Summary ---
Author Organization [facility] Medical [facility] Address [address] [place] [address] Care Team Providers Care Die Maker Apprentice Name Role Phone Jason Isaacs MD Primary Care Provider [phone] Reason for Visit * Reason Comments Atrial Fibrillation Pre-op Exam Encounter Details Date Type Department Care Team ([facility] st Contact Info) Description 10/10/2019 9:00 AM CDT Office Visit [facility] Cardiology [address] [place] [address] Cathie Brody NP [address] [place] [address] PAF (paroxysmal atrial fibrillation) (CMS/HCC) [...] on file Legal Sex Female 12:00 AM MACHINE FEED OPERATOR Gender Identity Not on file Sexual [...] from the original note were not included. [facility] Cardiology [address] [place] [address] Date of Visit: 10/10/2019 Patient ID: Chasidy [...] the addition of carvedilol Office visit with HYDRO EXCAVATION OPERATOR 10/10/2019: She called the office a few weeks ago with complaint of some chestheaviness and ???feeling funny. Her home blood pressure machine had given an irregular heart beat indication. Dr. Oscar advised a 7 day cafeteria monitor and stress testing. Since the week [...] 07/25/[address] Oscar, 09/20/2019 cafeteria monitor report, 09/29/2019 stress test report and the [...] the finding of ???cannot rule out inferior UT on her ECG. Her stress test was [...] or concerns. TATYANA Noonan- Nurse Practitioner with [facility] Cardiology This note is dictated and transcribed using [employer] Direct Software. Energy Sales Broker variancesmay occur. Despite proofreading, typographical errors may occur. documented in this encounter Plan of Treatment Not on file documented as of this encounter Visit Diagnoses Diagnosis PAF (paroxysmal atrial fibrillation) ([facility]/HCC) ([facility])- Primary Atrial fibrillation PSVT (paroxysmal supraventricular tachycardia) ([facility]) Paroxysmal supraventricular tachycardia Abnormal resting ECG findings Chronic anticoagulation Encounter for long-term (current) use of anticoagulants Preoperative cardiovascular examination Pre-operative cardiovascular examination documented in this encounter Care Teams Die Maker Apprentice Relationship Specialty Start Date End Date Jason Isaacs MD PCP - General Internal Medicine 07/13/18 documented as of this encounter
--- OUTSIDE RECORDS SUMMARY | 2024-04-18 11:00 | XMS_ITS | Encounter Summary ---
Author Organization [facility] Medical Group Address [address] [place] [address] Care Team Providers Care Animal Shelter Clerk Name Role Phone Jason Isaacs MD Primary Care Provider Encounter Details Date Type Department Care Team (Late st Contact Info) Description 06/16/2019 Telephone [facility] Medical [facility] Cardiology [address] [place] [address] Edilberto Oscar MD [address] [id number] Social History Tobacco Use Types Packs/Day Years Used Date Smoking Tobacco: Former Cigarettes Q uit: 07/13/1998 Smokeless Tobacco: Never Alcohol Use Standard Drinks/Week Comments Yes 2 (1 standard drink = 0.6 oz pur e alcohol) 2 beers a day Comments Unknown Sex and Gender Information Value Date Recorded Sex Assigned at Not on file Legal Sex Female 12:00 AM CONTROL SPECIALIST Gender Identity Not on file Sexual Orientation Not on file documented as of this encounter Miscellaneous Notes * Telephone Encounter - Africa Stewart RN - 06/17/2019 8:22 AM CONTROL SPECIALIST Noted ROL SPECIALIST * Telephone Encounter - Edilberto Oscar MD - 06/17/2019 8:10 AM CONTROL SPECIALIST She will likely not need any significant workup prior to a knee replacement but will discuss further at her visit on the 24 of July. ROL SPECIALIST * Telephone Encounter - Africa Stewart RN - 06/16/2019 9:49 AM CONTROL SPECIALIST Spoke with patient. She states that Dr. Oconnor will be doing her surgery. She doesn't anticipate surgery being until July. Patient has an appointment with Dr. Oscar on 07/25/19 and will discuss is further at that time. Will forward to Dr. Oscar for FYI and any possible further orders. ROL SPECIALIST * Telephone Encounter - Ninfa Pascal - 06/16/2019 9:39 AM CST Pt called to request a surgical clearance for a knee replacement. Surgery date not schedule yet. [phone] ROL SPECIALIST documented in this encounter Plan of Treatment Not on file documented as of this encounter Visit Diagnoses Not on filedocumented in this encounter Care Teams Animal Shelter Clerk Relationship Specialty Start Date End Date Jason Isaacs MD PCP - General Internal Medicine 07/13/18 documented as of this encounter
--- OUTSIDE RECORDS SUMMARY | 2024-04-18 11:00 | XMS_ITS | Encounter Summary ---
Author Organization [facility] Medical Group Address [address] [place] [address] Care Team Providers Care Chain Saw Mechanic Name Role Phone No, Physician Primary Care Provider [phone] Reason for Visit * (Routine) - Closed Specialty Diagnoses / Procedures Referred By Contac t Referred To Contact Diagnoses PAF (paroxysmal atrial fibrillation) (CMS/HCC) (HCC) Procedures [facility] MPI SPECT (Rest and/or Stress) Multiple Studies Jeane Gill MD Phone: tel: fax: Referral ID Status Reason Start Date Expiration Date Visits Re quested Visits Authorized [id number] Closed 07/07/2017 01/03/2018 1 1 Encounter Details Date Type Department Care Team (Latest Contact Info) Description 07/24/2017 10:15 AM CDT Ancillary Procedure [facility] Medical [facility] Cardiology [address] [place] [address] PAF (paroxysmal atrial fibrillation) (CMS/HCC) Social History Tobacco Use Types Packs/Day Years Used Date Smoking Tobacco: Never Assessed Comments Unknown Sex and Gender Information Value Date Recorded Sex Assigned at Not on file Legal Sex Female 12:00 AM HEATING EQUIPMENT INSTALLER Gender Identity Not on file Sexual Orientation [...] PM CDT [facility] [address] [address] [address], [place] [address] P:[phone] P:[phone] MPI Imaging Report Patient Name: CHASIDY VELEZ K : 1945 Study Date: 07/24/2017 9:48:21 AM Gender: F Tech: Graciela Baires [facility] Location: [facility] Ref.Physician: JEANE GILL Height(Cm): 175.2 BSA: Weight(Kg): [...] - 07/24/2017 [facility] [address] [facility] [address] [address] [address] P:[phone] P:[phone] MPI Imaging Report Patient Name: CHASIDY VELEZ KPatient ID: [id number] : [id number] Date: 07/24/2017 9:48:21 AM Gender: FAccession #: [id number] Tech: Graciela Baires [facility] Ref.Physician: JEANE GILLHeight(Cm): 175.2 BSA: Weight(Kg): 71.8 [...] millicuries documented in this encounter Care Teams Chain Saw Mechanic Relationship Specialty Start Date End Date No, Physician PCP - General 07/07/17 09/03/17 documented as of this encounter
--- OUTSIDE RECORDS SUMMARY | 2024-04-18 11:00 | XMS_ITS | Encounter Summary ---
Author Organization [facility] Care Team Providers Care Gripper Installer Name Role Phone Jason Isaacs MD Primary Care Provider [phone] Encounter Details Date Type Department Care Team [...] on file Legal Sex Female 12:00 AM CUSTOMER SERVICE ADVOCATE Gender Identity Not on file Sexual Orientation [...] on filedocumented in this encounter Care Teams Gripper Installer Relationship Specialty Start Date End Date Jason Isaacs MD PCP - General Internal Medicine 07/13/18 documented as of this encounter
--- OUTSIDE RECORDS SUMMARY | 2024-04-18 11:00 | XMS_ITS | Encounter Summary ---
Author Organization [facility] Medical [facility] Address [address] [place] [address] Care Team Providers Care Pathology Secretary Name Role Phone Jason Isaacs MD Primary Care Provider [phone] Encounter Details Date Type Department Care Team (Late st Contact Info) Description 11/09/2018 Telephone [facility] [address] [address] [address] [place] [address] Edilberto Oscar MD [address] [address] Social History Tobacco Use Types Packs/Day Years Used Date Smoking Tobacco: Former Cigarettes Q uit: 07/13/1998 Smokeless Tobacco: Never Alcohol Use Standard Drinks/Week Comments Yes 2 (1 standard drink = 0.6 oz pur e alcohol) 2 beers a day Comments Unknown Sex and Gender Information Value Date Recorded Sex Assigned at Not on file Legal Sex Female 12:00 AM GUEST SERVICES AMBASSADOR Gender Identity Not on file Sexual Orientation [...] Dr. Montanez. Pt was told to contact [facility] regarding cardiac clearance and blood thinner hold. cb [phone] documented in this encounter Plan of Treatment Not on file documented as of this encounter Visit Diagnoses Not on filedocumented in this encounter Care Teams Pathology Secretary Relationship Specialty Start Date End Date Jason Isaacs MD PCP - General Internal Medicine 07/13/18 documented as of this encounter
--- OUTSIDE RECORDS SUMMARY | 2024-04-18 11:00 | XMS_ITS | Encounter Summary ---
Author Organization [facility] Medical Group Address [address] [place] [address] Care Team Providers Care Stadium Manager Name Role Phone Cristobal Olivas MD Primary Care Provider [phone] Encounter Details Date Type Department Care Team (Late st Contact Info) Description 10/29/2017 Telephone [facility] Cardiology [address] [facility] [place] [address] Edilberto Oscar MD [address] [address] Social History Tobacco Use Types Packs/Day Years Used Date Smoking Tobacco: Never Smokeless Tobacco: Never Alcohol Use Standard Drinks/Week Comments Yes 2 (1 standard drink = 0.6 oz pur e alcohol) 2 beers a day Comments Unknown Sex and Gender Information Value Date Recorded Sex Assigned at Not on file Legal Sex Female 12:00 AM RN L AND D Gender Identity Not on file Sexual Orientation Not on file documented as of this encounter Miscellaneous Notes * Telephone Encounter - Sowmya Reinoso RN - 10/30/2017 8:29 AM CDT Fax sent to Dr. Love's office with [facility] recommendations for holding Xarelto. * Telephone [...] 10/29/2017 2:06 PM CDT Will forward to [facility] for review and recommedations * Telephone Encounter - Yane Gautam - 10/29/2017 2:00 PM CDT Tete from Dr. Love's office called to see if pt can stop her Xarelto 4 days before her colonoscopy 11/10/17 documented in this encounter Plan of Treatment Not on file documented as of this encounter Visit Diagnoses Not on filedocumented in this encounter Care Teams Stadium Manager Relationship Specialty Start Date End Date Cristobal Olivas MD [address] [id number] PCP - General Surgery 09/04/17 07/12/18 documented as of this encounter
--- OUTSIDE RECORDS SUMMARY | 2024-04-18 11:00 | XMS_ITS | Encounter Summary ---
Author Organization [facility] Medical Group Address [address] [place] [address] Care Team Providers Care Lead Generation Representative Name Role Phone Jason Isaacs MD Primary Care Provider [phone] Reason for Visit * Reason Onset Date Comments Anemia and CKD follow-up 06/08/2020 Encounter Details Date Type Department Care Team ([facility] st Contact Info) Description 06/08/2020 Documentation [facility] Cardiology [address] [facility] [address] [place] [id number] Cathie Brody NP [address] [facility] [address] [place] [address] Anemia and CKD follow-up Social [...] on file Legal Sex Female 12:00 AM OCCUPATIONAL WORK EXPERIENCE TEACHER Gender Identity Not on file Sexual Orientation Not on file documented as of this encounter Progress Notes * Cathie Brody NP - 06/08/2020 3:41 PM CST PCP sent a copy of his office note from 06/06/2020. He is referring her to Hematology. He also saidhe would follow up with Dr. Gao about the abnormal renal ultrasound. PATIONAL WORK EXPERIENCE TEACHER documented in this encounter Plan of Treatment Not on file documented as of this encounter Visit Diagnoses Not on filedocumented in this encounter Care Teams Lead Generation Representative Relationship Specialty Start Date End Date Jason Isaacs MD PCP - General Internal Medicine 07/13/18 documented as of this encounter
--- OUTSIDE RECORDS SUMMARY | 2024-04-18 11:00 | XMS_ITS | Encounter Summary ---
Author Organization [facility] Medical Group Address [address] [facility] [address] [place] [address] Care Team Providers Care Substation Operator Helper Generation Name Role Phone Jason Isaacs MD Primary Care Provider [phone] Encounter Details Date Type Department Care Team (Late st Contact Info) Description 10/14/[address] [facility] Medical Group Cardiology [address] [facility] [address] [place] [address] Edilberto Oscar MD [address] [id number] Social History Tobacco Use Types Packs/Day Years Used Date Smoking Tobacco: Former Cigarettes Q uit: 07/13/1998 Smokeless Tobacco: Never Alcohol Use Standard Drinks/Week Comments Yes 2 (1 standard drink = 0.6 oz pur e alcohol) 2 beers a day Comments Unknown Sex and Gender Information Value Date Recorded Sex Assigned at Not on file Legal Sex Female 12:00 AM MOBILE EQUIPMENT SERVICER Gender Identity Not on file Sexual Orientation [...] 10/14/2019 10:42 AM CDT Message sent to [facility] via text also * Telephone Encounter [...] on filedocumented in this encounter Care Teams Substation Operator Helper Generation Relationship Specialty Start Date End Date Jason Isaacs MD PCP - General Internal Medicine 07/13/18 documented as of this encounter
--- OUTSIDE RECORDS SUMMARY | 2024-04-18 11:00 | XMS_ITS | Encounter Summary ---
Author Organization [facility] Healthcare Address [address] [place] [address] Care Team Providers Care Test Case Developer Name Role Phone Unavailable Primary Care Provider Unavailabl e Encounter Details Date Type Department Care Team (Late st Contact Info) Description 06/13/2009 8:37 AM FLAG DECORATOR - 06/13/2009 3:30 PM FLAG DECORATOR Hospital Encounter [facility] Jasmina Sorenson Other [...] on file Legal Sex Female 12:00 AM FLAG DECORATOR Gender Identity Not on file Sexual Orientation [...]
--- OUTSIDE RECORDS SUMMARY | 2024-04-18 11:00 | XMS_ITS | Encounter Summary ---
Author Organization [facility] Medical Group Address [address] [facility] [address] [place] [address] Care Team Providers Care Lace And Textiles Restorer Name Role Phone Jason Isaacs MD Primary Care Provider [phone] Reason for Visit * Reason Comments Atrial Fibrillation 6 mo f/u Encounter Details Date Type Department Care Team (Latest Contact Info) Description 07/25/2019 10:00 AM CDT Telemedicine [facility] Medical Group Cardiology [address] [facility] [address] [place] [address] Edilberto Oscar MD [address] [phone] Chronic anticoagulation (Primary Dx); Rheumatoid arthritis, involving [...] on file Legal Sex Female 12:00 AM DIGITAL PHOTOGRAPHER Gender Identity Not on file Sexual Orientation [...] sooner as clinically indicated Edilberto Oscar MD, [facility] This was a telemedicine visit with Chasidy Thomas which took place via Telephone. During the visit, I was located in my office at [facility] and the patient was located in her [...] 05/29/2020 added in this encounter Care Teams Lace And Textiles Restorer Relationship Specialty Start Date End Date Jason Isaacs MD PCP - General Internal Medicine 07/13/18 documented as of this encounter
--- OUTSIDE RECORDS SUMMARY | 2024-04-18 11:00 | XMS_ITS | Encounter Summary ---
Author Organization [facility] Address [address] [place] [address] Care Team Providers Care Heating Equipment Repairer Name Role Phone Jason Isaacs MD Primary Care Provider [phone] Encounter Details Date Type Department Care Team (Late st Contact Info) Description 09/20/2019 Telephone [facility] Cardiology [address] [place] [address] Edilberto Oscar MD [address] [id number] Social History Tobacco Use Types Packs/Day Years Used Date Smoking Tobacco: Former Cigarettes Q uit: 07/13/1998 Smokeless Tobacco: Never Alcohol Use Standard Drinks/Week Comments Yes 2 (1 standard drink = 0.6 oz pur e alcohol) 2 beers a day Comments Unknown Sex and Gender Information Value Date Recorded Sex Assigned at Not on file Legal Sex Female 12:00 AM WOOD ROUTER HAND Gender Identity Not on file Sexual Orientation Not on file documented as of this encounter Miscellaneous Notes * Telephone Encounter - Mame Escobar MA - 09/20/2019 4:57 PM CDT Called patient and answered questions. * Telephone Encounter - Jacki Fields - 09/20/2019 2:40 PM CDT Chasidy has questions about the monitor that was place today. CB# [phone] documented in this encounter Plan of Treatment Not on file documented as of this encounter Visit Diagnoses Not on filedocumented in this encounter Care Teams Heating Equipment Repairer Relationship Specialty Start Date End Date Jason Isaacs MD PCP - General Internal Medicine 07/13/18 documented as of this encounter
--- OUTSIDE RECORDS SUMMARY | 2024-04-18 11:00 | XMS_ITS | Encounter Summary ---
Author Organization [facility] Address [address] [place] [address] Care Team Providers Care Flat Lock Operator Name Role Phone Jason Isaacs MD Primary Care Provider [phone] Reason for Visit * Reason Comments Atrial Fibrillation Hypertension 6 mo f/u Encounter Details Date Type Department Care Team (Latest Contact Info) Description 01/18/2019 10:30 AM CDT Office Visit [facility] [address] [place] [address] Edilberto Oscar MD [facility] [place] [id number] Rheumatoid arthritis, involving unspecified site, unspecified rheumatoid [...] on file Legal Sex Female 12:00 AM FORESTRY TREE PRUNER Gender Identity Not on file Sexual Orientation [...] sooner as clinically indicated Edilberto Oscar MD, [facility] documented in this encounter Miscellaneous Notes [...] 11/15/2020 added in this encounter Care Teams Flat Lock Operator Relationship Specialty Start Date End Date Jason Isaacs MD PCP - General Internal Medicine 07/13/18 documented as of this encounter
--- OUTSIDE RECORDS SUMMARY | 2024-04-18 11:03 | XMS_ITS | Encounter Summary ---
Author Organization [facility] Address [address] [place] [address] Care Team Providers Care Consolidation Accountant Name Role Phone Jason Isaacs MD Primary Care Provider [phone] Encounter Details Date Type Department Care Team (Late st Contact Info) Description 05/20/2023 External Device Data [facility] ABSTRACTION Provider, Abstract NO ADDRESS ON FILE Social History Tobacco Use Types Packs/Day Years Used Date Smoking Tobacco: Former Smokeless Tobacco: Never Comments:quit over 25 yrs ag o Alcohol Use Standard Drinks/Week Comments Yes 0 (1 standard drink = 0.6 oz pur e alcohol) occasional Sex and Gender Information Value Date Recorded Sex Assigned at Not on file Gender Identity Not on file Sexual Orientation Not on file documented as of this encounter Plan of Treatment Not on file documented as of this encounter Visit Diagnoses Not on filedocumented in this encounter Care Teams Consolidation Accountant Relationship Specialty Start Date End Date Jason Isaacs MD [address] [place] [address] PCP - General Internal Medicine 06/25/20 documented as of this encounter
--- OUTSIDE RECORDS SUMMARY | 2024-04-18 11:03 | XMS_ITS | Encounter Summary ---
Author Organization [facility] Address [address] [place] [address] Care Team Providers Care Medical Intern Name Role Phone Jason Isaacs MD Primary Care Provider [phone] Encounter Details Date Type Department Care Team (Late st Contact Info) Description 10/20/2023 External Device Data STL ABSTRACTION Provider, Abstract [...] on filedocumented in this encounter Care Teams Medical Intern Relationship Specialty Start Date End Date Jason Isaacs MD [address] [place] [address] PCP - General Internal Medicine 06/25/20 documented as of this encounter
--- OUTSIDE RECORDS SUMMARY | 2024-04-18 11:03 | XMS_ITS | Encounter Summary ---
Author Organization [facility] Address [address] [place] [address] Care Team Providers Care Title Clerk Automobile Name Role Phone Jason Isaacs MD Primary Care Provider [phone] Encounter Details Date Type Department Care Team (Late st Contact Info) Description 07/10/2023 External Device Data STL ABSTRACTION Provider, Abstract [...] on filedocumented in this encounter Care Teams Title Clerk Automobile Relationship Specialty Start Date End Date Jason Isaacs MD [address] [place] [address] PCP - General Internal Medicine 06/25/20 documented as of this encounter
--- OUTSIDE RECORDS SUMMARY | 2024-04-18 11:03 | XMS_ITS | Clinical Summary ---
Author Organization [facility] [place] [facility] Lizzeth Yuan Address [address] [place] [address] Care Team Providers Care Service Engineer Name Role Phone Jason Isaacs MD Primary Care Provider [phone] Allergies Active Allergy Reactions Criticality Noted Date Comments Oxycodone Dizziness,Hypotensio n,Ot her (See Comments),Nausea and Vomiting High 10/18/2019 Other reaction(s): Nausea only Sulfadiazine Nausea and Vomiting High 06/25/2020 Sulfasalazine Other (See Comments),Nausea and Vomiting Low 01/12/2018 Medications Medication Sig Dispensed Refills Start Date End Date Status calcium crb,cit/D3/min34/g debbi (CITRACAL PLUS BONE DENSITY ORAL) Citracal Plus Bone Density once a day Active ALPRAZolam (XANAX) 0.5 mg tablet alprazolam 0.5 mg tablet TAKE 1 TABLET BY MOUTH EVERY DAY AT BEDTIME 08/17/2017 Active atorvastatin (LIPITOR) 20 mg tablet atorvastatin 20 mg tablet 08/25/2017 Active leflunomide (ARAVA) 10 mg tablet leflunomide 10 mg tablet 08/17/2017 Active magnesium oxide (MAG-OX) 400 mg (241.3 mg magnesium) tablet magnesium oxide 400 mg (241.3 mg magnesium) tablet TAKE 1 TABLET BY MOUTH TWICE A DAY 12/29/2018 Active metoprolol succinate (TOPROL XL) 25 mg Extended Release 24 hour tablet Take 12.5 mg by mouth. 05/29/2020 Ac tive omeprazole (PriLOSEC) 40 mg Capsule, Delayed Release(E.C.) omeprazole 40 mg capsule,delayed release 10/07/2019 Active predniSONE (DELTASONE) 5 mg tablet prednisone 5 mg tablet 09/30/2019 Ac tive rivaroxaban (Xarelto) 15 mg Tablet Xarelto 15 mg tablet 08/10/2019 Acti ve ferrous sulfate 325 mg (65 mg iron) Tablet, Delayed Release (E.C.) Take by mouth. Active ascorbic acid, vitamin C, (VITAMIN C) 500 mg tablet Active flecainide (TAMBOCOR) 50 mg Tablet TAKE 1 TABLET BY MOUTH EVERY 12 HOURS FOR 30 DAYS 11/02/2020 Active spironolactone (ALDACTONE) 25 mg tablet spironolactone 25 mg tablet TAKE 2 TABLETS BY MOUTH EVERY DAY Active Calcium Cmb 2-D3-Min [id number] (Citracal Plus Bone Density) 300-200-13.5 mg-unit-mg Tablet Citracal Plus Bone Density once a day 06/08/2019 Active polycarbophil calcium (FIBERCON) 625 mg tablet Take 625 mg by mouth daily. Active Active Problems Problem Noted Date Diagnosed Date Anemia of chronic renal failure, stage 3 (modera te) 06/25/2020 Family History Medical History Relation Name Comments Cancer Father Heart Disease Mother Kidney Cancer Sister 2 Relation Name Status Comments Daughter Alive Father Mother Sister 1 Alive Sister 2 Alive Son 1 Alive Son 2 Alive Social History Tobacco Use Types Packs/Day Years Used Date Smoking Tobacco: Former Smokeless Tobacco: Never Tobacco Cessation:Counseling Given: Not Answered Comments:quit over 25 yrs ago Alcohol Use Standard Drinks/Week Comments Yes 0 (1 standard drink = 0.6 oz pur e alcohol) occasional Sex and Gender Information Value Date Recorded Sex Assigned at Not on file Gender Identity Not on file Sexual Orientation Not on file Last Filed Vital Signs Vital Sign Reading Time Taken Comments Blood Pressure 169/79 05/13/2023 9:11 AM PINSETTER MECHANIC HELPER Pulse 79 05/13/2023 9:08 AM PINSETTER MECHANIC HELPER Temperature 36 ??C (96.8 ??F) 05/13/2023 9:08 AM PINSETTER MECHANIC HELPER Respiratory Rate 10 05/13/2023 9:08 AM PINSETTER MECHANIC HELPER Oxygen Saturation 96% 05/13/2023 9:08 AM PINSETTER MECHANIC HELPER Inhaled Oxygen Concentration - - Weight 68.5 kg (151 lb) 05/13/2023 9:08 AM PINSETTER MECHANIC HELPER Height 170.2 cm (5' 7 ) 12/31/2021 10:16 AM CDT Body Mass Index 23.65 12/31/2021 10:16 AM CDT Plan of Treatment Health Maintenance Due Date Last Done Comments DTAP/TDAP/TD VACCINES (1 - Tdap) 08/19/1963 ZOSTER VACCINE (1 of 2) 1994 PNEUMOCOCCAL VACCINE 65+ YEA RS (1 of 1 - PCV) 2009 12/26/2017 RSV VACCINE (60+ or ) (1 - 1-dose 75+ series) 08/19/2019 INFLUENZA VACCINE (#1) 2023 2, 02/18/2021, 02/09/2020 OSTEOPOROSIS SCREENING Completed 10/15/2018 COLORECTAL SCREENING Discontinued 04/25/2022, 11/11/19 18 Colorectal Cancer Screening Discontinued FIT-DNA Q 3 years Discontinued FIT/FOBT Q 1 year Discontinued Flex Sig/CT Colonography Q 5 years Discontinued Care Teams Service Engineer Relationship Specialty Start Date End Date Jason Isaacs MD [address] [place] [address] PCP - General Internal Medicine 06/25/20
--- OUTSIDE RECORDS SUMMARY | 2024-04-18 11:03 | XMS_ITS | Encounter Summary ---
Author Organization [facility] Address [address] [place] [address] Care Team Providers Care Meat Team Member Name Role Phone Jason Isaacs MD Primary Care Provider [phone] Encounter Details Date Type Department Care Team (Late st Contact Info) Description 05/22/2023 External Device Data STL ABSTRACTION Provider, Abstract [...] on filedocumented in this encounter Care Teams Meat Team Member Relationship Specialty Start Date End Date Jason Isaacs MD [address] [place] [address] PCP - General Internal Medicine 06/25/20 documented as of this encounter
--- OUTSIDE RECORDS SUMMARY | 2024-04-18 11:03 | XMS_ITS | Encounter Summary ---
Author Organization [facility] Address [address] [place] [address] Care Team Providers Care Stock Selector Name Role Phone Jason Isaacs MD Primary Care Provider [phone] Encounter Details Date Type Department Care Team (Late st Contact Info) Description 05/23/2023 External Device Data STL ABSTRACTION Provider, Abstract [...] on filedocumented in this encounter Care Teams Stock Selector Relationship Specialty Start Date End Date Jason Isaacs MD [address] [place] [address] PCP - General Internal Medicine 06/25/20 documented as of this encounter
--- OUTSIDE RECORDS SUMMARY | 2024-04-18 11:03 | XMS_ITS | Encounter Summary ---
Author Organization [facility] Address [address] [place] [address] Care Team Providers Care Vehicle Controls Engineer Name Role Phone Jason Isaacs MD Primary Care Provider [phone] Encounter Details Date Type Department Care Team (Late st Contact Info) Description 05/21/2023 External Device Data STL ABSTRACTION Provider, Abstract [...] on filedocumented in this encounter Care Teams Vehicle Controls Engineer Relationship Specialty Start Date End Date Jason Isaacs MD [address] [place] [address] PCP - General Internal Medicine 06/25/20 documented as of this encounter
--- OUTSIDE RECORDS SUMMARY | 2024-04-18 11:04 | XMS_ITS | Encounter Summary ---
Author Organization [facility] Address [address] [place] [address] Care Team Providers Care Paper Mill Supervisor Name Role Phone Jason Isaacs MD Primary Care Provider [phone] Encounter Details Date Type Department Care Team (Late st Contact Info) Description 01/15/2023 External Device Data STL ABSTRACTION Provider, Abstract [...] on filedocumented in this encounter Care Teams Paper Mill Supervisor Relationship Specialty Start Date End Date Jason Isaacs MD [address] [place] [address] PCP - General Internal Medicine 06/25/20 documented as of this encounter
--- OUTSIDE RECORDS SUMMARY | 2024-04-18 11:04 | XMS_ITS | Encounter Summary ---
Author Organization [facility] SAUNDRA Munoz [facility] Address [address] [place] [address] Care Team Providers Care Application Penetration Tester Name Role Phone Jason Isaacs MD Primary Care Provider [phone] Reason for Visit * Reason Comments Follow Up 3 month f/u with lab s Encounter Details Date Type Department Care Team (Late st Contact Info) Description 02/26/2021 10:00 AM CDT Office Visit [facility] Oncology and Hematology - Leonardo [address] [facility] [address] [place] [address] Rodolfo Hernandez MD [address] [place] [address] Chronic anemia (Primary Dx) Social History Tobacco Use Types Packs/Day Years [...] have Coronavirus / COVID-19? No / Unsure 02/26/2021 9:46 AM CDT documented as of this encounter Last Filed Vital Signs Vital Sign Reading Time Taken Comments Blood Pressure 128/72 02/26/2021 9:52 AM CDT Pulse 67 02/26/2021 9:52 AM CDT Temperature 36.4 ??C (97.5 ??F) 02/26/2021 9:52 AM CD T Respiratory Rate - - Oxygen Saturation 96% 02/26/2021 9:52 AM CDT Inhaled Oxygen Concentration - - Weight 69.3 kg (152 lb 12.8 oz) 02/26/2021 9:52 AM CDT Height 172.7 cm (5' 8 ) 02/26/2021 9:52 AM CDT Body Mass Index 23.23 02/26/2021 9:52 AM CDT documented in this encounter Progress Notes * Rodolfo Hernandez MD - 02/26/2021 11:20 AM CDT HEMATOLOGY / ONCOLOGY PROGRESS NOTE Patient Identification: Name: Chasidy Thomas Age: 75 y.o. Sex: female : 1945 DIAGNOSIS Multifactorial anemia. CURRENT TREATMENT TREATMENT HISTORY Procrit 20,000 units started biweekly on July 04, 2020. SUBJECTIVE Patient came into the office for follow-up visit. She is feeling more stronger and energetic. No bleeding and bruising. Weight and appetite stable. No other new complaint. Review of system Constitutional: denies fevers, sweats, denies any excessive tiredness and fatigue HEENT: denies sinus congestion, hearing or vision problems Respiratory: denies cough, dyspnea, wheeze Cardiovascular: denies chest pain, exertional chest pressure/discomfort, nausea, syncope, shortnessof breath GI: denies constipation, diarrhea, dsyphagia, reflux symptoms, vomiting, melena : denies dysuria, frequency, incontinence, urgency Integumentary system: no lymphadenopathy, sweats, flushing Musculoskeletal: denies: myalgia, arthralgia Neurological: denies blurry or disturbed vision, numbness/weakness, dizziness Skin: No lumps, bumps or rashes. 12 point review system was reviewed and as above Objective: Vital signs in last 24 hours: As per nursing note Exam: General appearance: alert, cooperative, no distress, appears stated age Head: normocephalic, without obvious abnormality, atraumatic Eyes: conjunctivae/corneas clear, EOM's intact Ears: normal external ear canals AU Nose: Nares normal. Septum midline. Mucosa normal. No drainage or sinus tenderness Throat: Lips, mucosa, and tongue normal. Teeth and gums normal Neck: supple, symmetrical, trachea midline. Lungs: clear to auscultation bilaterally Heart: regular rate and rhythm, S1, S2 normal, no murmur, click, rub or gallop Abdomen: soft, non-tender. Bowel sounds normal. No masses, No organomegaly Extremities: extremities normal, atraumatic, no cyanosis or edema Skin: Skin color, texture, turgor normal. No rashes or lesions Lymph nodes: No lymphadenopathy Neuro: No obvious focal deficit Examination as above PATH LABS Labs from July 04 showed hemoglobin 8.7. Labs from June 25 showed creatinine 1.87 iron 30 saturation 7% ferritin 28 B12 762 LDH 181 serum protein electrophoresis showed no monoclonal spike. Labs from August 27 showed creatinine 1.5 iron 131 iron saturation 38% ferritin 98 WBC 11.1 hemoglobin 12.9 platelets 211,000 Labs from November 21 showed hemoglobin 11.8 MCV 102 WBC 10.8 platelet 208,000 creatinine 1.46 Labs from February 26 showed hemoglobin 13 WBC 9.2 platelet 190,000 creatinine 1.6 Assessment: Plan: Patient Active Problem List Diagnosis Date Noted ??? Anemia of chronic renal failure, stage 3 (moderate) 06/25/2020 Multifactorial anemia. This is secondary to anemia of chronic kidney stage III disease as well as iron deficiency. Patient started Retacrit 20,000 units on July 04, 2020. Labs noted. Hemoglobin has further improved. No need for Procrit. Continue oral iron but reduce dose to twice a day along with vitamin C daily. Follow-up in 4 months. Chronic kidney stage III disease. Patient will continue to follow with Dr. Gao. Atrial fibrillation. Continue Xarelto. TOBACCO COUNSELING She is not a tobacco user. 02/26/2021 Rodolfo Hernandez MD documented in this encounter Plan of Treatment Scheduled Orders Name Type Priority Associated Diagnoses Orde r Schedule CBC WITH DIFFERENTIAL Lab Stat Chronic anemia Expected: 06/18/2021, Expires: 02/26/2022 BASIC METABOLIC PANEL Lab Stat Chronic anemia Expected: 06/18/2021, Expires: 02/26/2022 documented as of this encounter Visit Diagnoses Diagnosis Chronic anemia- Primary Anemia, unspecified documented in this encounter Care Teams Application Penetration Tester Relationship Specialty Start Date End Date Jason Isaacs MD [address] [place] [address] PCP - General Internal Medicine 06/25/20 documented as of this encounter
--- OUTSIDE RECORDS SUMMARY | 2024-04-18 11:04 | XMS_ITS | Encounter Summary ---
Author Organization [facility]DR[facility] Munoz [facility] Address [address] [place] [address] Care Team Providers Care Identification And Records Commander Name Role Phone Jason Isaacs MD Primary Care Provider [phone] Encounter Details Date Type Department Care Team (Late st Contact Info) Description 06/26/2020 Orders Only [facility] Oncology and Hematology - Leonardo [address] [facility] [address] [place] [address] Rodolfo Hernandez MD [address] [facility] [address] [place] [address] Chronic anemia Social History Tobacco Use Types Packs/Day Years [...] have Coronavirus / COVID-19? No / Unsure 06/25/2020 12:30 PM FURNACE UTILITY OPERATOR documented as of this encounter Plan of Treatment Not on file documented as of this encounter Visit Diagnoses Diagnosis Chronic anemia Anemia, unspecified documented in this encounter Care Teams Identification And Records Commander Relationship Specialty Start Date End Date Jason Isaacs MD [address] [place] [address] PCP - General Internal Medicine 06/25/20 documented as of this encounter
--- OUTSIDE RECORDS SUMMARY | 2024-04-18 11:04 | XMS_ITS | Encounter Summary ---
Author Organization [facility] Munoz [facility] Address [address] [place] [address] Care Team Providers Care Grape Grower Name Role Phone Jason Isaacs MD Primary Care Provider [phone] Reason for Visit * Reason Onset Date Comments Needs Orders Written 07/03/2020 Encounter Details Date Type Department Care Team ([facility] st Contact Info) Description 07/03/2020 Telephone [facility] Oncology and Hematology - Leonardo [address] [facility] [address] [place] [address] Rodolfo Hernandez MD [address] [facility] [address] [place] [address] Needs Orders Written Social History Tobacco Use Types Packs/Day Years [...] COVID-19? No / Unsure 06/25/2020 12:30 PM FISCAL ACCOUNTANT documented as of this encounter Plan of Treatment Not on file documented as of this encounter Visit Diagnoses Diagnosis Anemia of chronic renal failure, stage 3a- Primary documented in this encounter Care Teams Grape Grower Relationship Specialty Start Date End Date Jason Isaacs MD [address] [place] [address] PCP - General Internal Medicine 06/25/20 documented as of this encounter
--- OUTSIDE RECORDS SUMMARY | 2024-04-18 11:04 | XMS_ITS | Encounter Summary ---
Author Organization [facility] SAUNDRA Munoz [facility] Address [address] [place] [address] Care Team Providers Care Flexographic Press Operator Name Role Phone Jason Isaacs MD Primary Care Provider [phone] Encounter Details Date Type Department Care Team (Late st Contact Info) Description 05/06/2023 Orders Only [facility] Oncology and Hematology - Leonardo [address] [facility] [address] [place] [address] Rodolfo Hernandez MD [address] [facility] [address] [place] [address] Social History Tobacco Use Types Packs/Day Years [...] Procedure Name Priority Date/Time Associated Diagnosis Comments COMPREHENSIVE METABOLIC PANEL Routine 05/06/2023 2:37 PM MULTIFOCAL BUTTON GRINDER COMPREHENSIVE METABOLIC PANEL Routine 05/06/2023 1:52 PM MULTIFOCAL BUTTON GRINDER documented in this encounter Results * COMPREHENSIVE METABOLIC PANEL (05/06/2023 2:37 PM MULTIFOCAL BUTTON GRINDER) Blood Rodolfo Hernandez MD CHEMISTRY ORDERABLES * COMPREHENSIVE METABOLIC PANEL (05/06/2023 1:52 PM MULTIFOCAL BUTTON GRINDER) Blood Rodolfo Hernandez MD CHEMISTRY ORDERABLES documented in this encounter Visit Diagnoses Not on filedocumented in this encounter Care Teams Flexographic Press Operator Relationship Specialty Start Date End Date Jason Isaacs MD [address] [place] [address] PCP - General Internal Medicine 06/25/20 documented as of this encounter
--- OUTSIDE RECORDS SUMMARY | 2024-04-18 11:04 | XMS_ITS | Encounter Summary ---
Author Organization [facility] Address [address] Rojasn: Epic Prelude ADT [place] [address] Care Team Providers Care Survey Analyst Name Role Phone Jason Isaacs MD Primary Care Provider [phone] Encounter Details Date Type Department Care Team (Latest Contact Info) Description 02/26/2021 Travel Social History Tobacco Use Types Packs/Day [...] on filedocumented in this encounter Care Teams Survey Analyst Relationship Specialty Start Date End Date Jason Isaacs MD [address] [place] [address] PCP - General Internal Medicine 06/25/20 documented as of this encounter
--- OUTSIDE RECORDS SUMMARY | 2024-04-18 11:04 | XMS_ITS | Encounter Summary ---
Author Organization [facility] ([facility])[3] SAUNDRA Munoz [facility] Address [address] [place] [address] Care Team Providers Care Mechanic And Welder Name Role Phone Jason Isaacs MD Primary Care Provider [phone] Encounter Details Date Type Department Care Team (Late st Contact Info) Description 09/30/2022 Orders Only [facility] Oncology and Hematology - Leonardo [address] [facility] [address] [place] [address] Rodolfo Hernandez MD [address] [facility] [address] [place] [address] Social History Tobacco Use Types [...] Procedure Name Priority Date/Time Associated Diagnosis Comments VITAMIN D 25 HYDROXY Routine 09/23/2022 9:41 AM CDT CANCER ANTIGEN 19-9 Routine 09/23/2022 9:29 AM CDT documented in this encounter Results * VITAMIN D 25 HYDROXY (09/23/2022 9:41 AM CDT) Blood Rodolfo Hernandez MD CHEMISTRY ORDERABLES * CANCER ANTIGEN 19-9 (09/23/2022 9:29 AM CDT) Blood Rodolfo Hernandez MD CHEMISTRY ORDERABLES documented in this encounter Visit Diagnoses Not on filedocumented in this encounter Care Teams Mechanic And Welder Relationship Specialty Start Date End Date Jason Isaacs MD [address] [place] [address] PCP - General Internal Medicine 06/25/20 documented as of this encounter
--- OUTSIDE RECORDS SUMMARY | 2024-04-18 11:04 | XMS_ITS | Encounter Summary ---
Author Organization [facility] Address [address] Rojasn: Epic Prelude ADT [place] [address] Care Team Providers Care Records Associate Name Role Phone Jason Isaacs MD Primary Care Provider [phone] Encounter Details Date Type Department Care Team (Latest Contact Info) Description 12/31/2021 Travel Social History Tobacco Use Types Packs/Day [...] Exposure Response Date Recorded In the last 10 days, have yo u been in contact with someone who was confirmed or suspected to have Coronavirus/COVID-19? No / Unsure 12/31/2021 9:42 AM CDT documented as of this encounter Plan of Treatment Not on file documented as of this encounter Visit Diagnoses Not on filedocumented in this encounter Care Teams Records Associate Relationship Specialty Start Date End Date Jason Isaacs MD [address] [place] [address] PCP - General Internal Medicine 06/25/20 documented as of this encounter
--- OUTSIDE RECORDS SUMMARY | 2024-04-18 11:04 | XMS_ITS | Encounter Summary ---
Author Organization [facility] SAUNDRA Munoz [facility] Address [address] [place] [address] Care Team Providers Care Full Stack Net Developer Name Role Phone Jason Isaacs MD Primary Care Provider [phone] Encounter Details Date Type Department Care Team ([facility] st Contact Info) Description 02/26/2021 Orders Only [facility] Oncology and Hematology - Leonardo [address] Kwabena Saunders [address] [place] [address] Tierra Hardwick Chronic anemia Social History Tobacco Use Types [...] unspecified documented in this encounter Care Teams Full Stack Net Developer Relationship Specialty Start Date End Date Jason Isaacs MD [address] [place] [address] PCP - General Internal Medicine 06/25/20 documented as of this encounter
--- OUTSIDE RECORDS SUMMARY | 2024-04-18 11:04 | XMS_ITS | Encounter Summary ---
Author Organization [facility] Address [address] [place] [address] Care Team Providers Care Public Relations Intern Name Role Phone Jason Isaacs MD Primary Care Provider [phone] Encounter Details Date Type Department Care Team (Late st Contact Info) Description 02/17/2023 External Device Data STL ABSTRACTION Provider, Abstract [...] on filedocumented in this encounter Care Teams Public Relations Intern Relationship Specialty Start Date End Date Jason Isaacs MD [address] [place] [address] PCP - General Internal Medicine 06/25/20 documented as of this encounter
--- OUTSIDE RECORDS SUMMARY | 2024-04-18 11:04 | XMS_ITS | Encounter Summary ---
Author Organization [facility] Address [address] [place] [address] Care Team Providers Care Rattan Worker Name Role Phone Jason Isaacs MD Primary Care Provider [phone] Encounter Details Date Type Department Care Team (Late st Contact Info) Description 04/21/2023 External Device Data STL ABSTRACTION Provider, Abstract [...] on filedocumented in this encounter Care Teams Rattan Worker Relationship Specialty Start Date End Date Jason Isaacs MD [address] [place] [address] PCP - General Internal Medicine 06/25/20 documented as of this encounter
--- OUTSIDE RECORDS SUMMARY | 2024-04-18 11:04 | XMS_ITS | Encounter Summary ---
Author Organization [facility] Address [address] Rojasn: Epic Prelude ADT [place] [address] Care Team Providers Care Maintenance Mechanic Name Role Phone Jason Isaacs MD Primary Care Provider [phone] Encounter Details Date Type Department Care Team (Latest Contact Info) Description 11/28/2020 Travel Social History Tobacco Use Types Packs/Day [...] have Coronavirus / COVID-19? No / Unsure 11/28/2020 9:43 AM CDT documented as of this encounter Plan of Treatment Not on file documented as of this encounter Visit Diagnoses Not on filedocumented in this encounter Care Teams Maintenance Mechanic Relationship Specialty Start Date End Date Jason Isaacs MD [address] [place] [address] PCP - General Internal Medicine 06/25/20 documented as of this encounter
--- OUTSIDE RECORDS SUMMARY | 2024-04-18 11:04 | XMS_ITS | Encounter Summary ---
Author Organization [facility] Address [address] Rojasn: Epic Prelude ADT [place] [address] Care Team Providers Care Occup Ther Name Role Phone Jason Isaacs MD Primary Care Provider [phone] Encounter Details Date Type Department Care Team (Latest Contact Info) Description 02/27/2022 Travel Social History Tobacco Use Types Packs/Day [...] suspected to have Coronavirus/COVID-19? No / Unsure 02/27/2022 1:45 PM CDT documented as of this encounter Plan of Treatment Not on file documented as of this encounter Visit Diagnoses Not on filedocumented in this encounter Care Teams Occup Ther Relationship Specialty Start Date End Date Jason Isaacs MD [address] [place] [address] PCP - General Internal Medicine 06/25/20 documented as of this encounter
--- OUTSIDE RECORDS SUMMARY | 2024-04-18 11:04 | XMS_ITS | Encounter Summary ---
Author Organization [facility] SAUNDRA Munoz [facility] Address [address] [place] [address] Care Team Providers Care Campground Attendant Name Role Phone Jason Isaacs MD Primary Care Provider [phone] Reason for Visit * Reason Comments Follow Up Encounter Details Date Type Department Care Team (Late st Contact Info) Description 10/14/2022 11:45 AM CDT Office Visit [facility] Oncology and Hematology - Leonardo [address] [facility] [address] [place] [address] Rodolfo Hernandez MD [address] [facility] [address] [place] [address] Liver lesion (Primary Dx) Social History Tobacco Use Types [...] Sign Reading Time Taken Comments Blood Pressure 152/75 10/14/2022 11:26 AM CDT Pulse 68 10/14/2022 11:24 AM CDT Temperature 36 ??C (96.8 ??F) 10/14/2022 11:24 AM CDT Respiratory Rate 10 10/14/2022 11:24 AM CDT Oxygen Saturation 98% 10/14/2022 11:24 AM CDT Inhaled Oxygen Concentration - - Weight 67.1 kg (148 lb) 10/14/2022 11:24 AM CDT Height - - Body Mass Index 23.18 12/31/2021 10:16 AM CDT documented in this encounter Progress Notes * Rodolfo Hernandez MD - 10/14/2022 11:53 AM CDT HEMATOLOGY / ONCOLOGY PROGRESS NOTE Patient Identification: Name: Chasidy Thomas Age: 77 y.o. Sex: female : 1945 DIAGNOSIS Liver lesion Multifactorial anemia. CURRENT TREATMENT Surveillance TREATMENT HISTORY Procrit 20,000 units started biweekly on July 04, 2020. SUBJECTIVE Patient came to the office for follow-up visit after the CT scan was performed. She denies any abdominal pain nausea vomiting and diarrhea. She has gained 3 pound weight. No other new complaint. Review of system Constitutional: denies fevers, sweats, denies any excessive tiredness and fatigue, 3 pound weight gain HEENT: denies sinus congestion, hearing or vision problems Respiratory: denies cough, dyspnea, wheeze Cardiovascular: denies chest pain, exertional chest pressure/discomfort, nausea, syncope, shortnessof breath GI: denies constipation, diarrhea, dsyphagia, reflux symptoms, vomiting, melena, denies any abdominal pain : denies dysuria, frequency, incontinence, urgency Integumentary system: no lymphadenopathy, sweats, flushing Musculoskeletal: denies: myalgia, arthralgia Neurological: denies blurry or disturbed vision, numbness/weakness, dizziness Skin: No lumps, bumps or rashes. 12 point review system was reviewed Objective: Vital signs in last 24 hours: [...] No lymphadenopathy Neuro: No obvious focal deficit Exam as above PATH LABS Labs from July [...] 13 WBC 9.2 platelet 190,000 creatinine 1.6 Labs from June 18 showed creatinine 1.56 hemoglobin 13.3 Labs from December 23 showed creatinine 1.59 WBC 9.6 hemoglobin 13.5 platelet 178,000 Labs from February 20 showed hemoglobin 13.1 WBC 8.2 platelet 185,000 CA 19-9 108 alpha-fetoprotein 10.3 CEA 1.0 Labs from June 02 showed creatinine 1.45 total bilirubin 0.5 AST 23 ALT 30 WBC 9.2 hemoglobin 13.5 platelet 164,000 CA 19-9 110 Labs from September 23 showed CA 19-909 vitamin D 30 PTH 49 creatinine 1.3 hemoglobin 12.7 Assessment: Plan: Patient Active Problem List Diagnosis Date Noted Anemia of chronic renal failure, stage 3 (moderate) 06/25/[address] Hepatic lesions. Patient had CT abdomen pelvis done on January 21 that showed sigmoid diverticulitis with 1 to 1.5 cm hepatic lesions. Abdominal MRI done on February 15 showed focal steatosis in theliver. I have discussed this report with Dr. Key in radiology. He does not believe that there is any cancer in the liver or in pancreas. CT scan done on September 29 showed no liver lesions. Clinically she is asymptomatic. Tumor marker remains elevated. We will repeat labs again in in 6 months. She continues to drink on a daily basis. Anemia of chronic kidney disease. Hemoglobin is stable. No need for Procrit injection. A-fib. Continue Xarelto. CKD stage III. She will continue to follow-up with Dr. Gao. 10/14/2022 Rodolfo Hernandez MD documented in this encounter Plan of Treatment Not on file documented as of this encounter Visit Diagnoses Diagnosis Liver lesion- Primary Other specified disorders of liver documented in this encounter Care Teams Campground Attendant Relationship Specialty Start Date End Date Jason Isaacs MD [address] [place] [address] PCP - General Internal Medicine 06/25/20 documented as of this encounter
--- OUTSIDE RECORDS SUMMARY | 2024-04-18 11:04 | XMS_ITS | Encounter Summary ---
Author Organization [facility] SAUNDRA Munoz [facility] Address [address] [place] [address] Care Team Providers Care Repair Mechanic Name Role Phone Jason Isaacs MD Primary Care Provider Encounter Details Date Type Department Care Team (Late st Contact Info) Description 01/01/2022 Orders Only [facility] Oncology and Hematology - Leonardo [address] [facility] [address] [place] [address] Rodolfo Hernandez MD [address] [facility] [address] [place] [address] Social History Tobacco Use Types [...] Procedure Name Priority Date/Time Associated Diagnosis Comments FLASH WITH TITER Routine 12/23/2021 documented in this encounter Results * FLASH WITH TITER (12/23/2021) Blood Rodolfo Hernandez MD CHEMISTRY ORDERABLES documented in this encounter Visit Diagnoses Not on filedocumented in this encounter Care Teams Repair Mechanic Relationship Specialty Start Date End Date Jason Isaacs MD [address] [place] [address] PCP - General Internal Medicine 06/25/20 documented as of this encounter
--- OUTSIDE RECORDS SUMMARY | 2024-04-18 11:04 | XMS_ITS | Encounter Summary ---
Author Organization [facility] SAUNDRA Munoz [facility] Address [address] [place] [address] Care Team Providers Care Syruper Name Role Phone Jason Isaacs MD Primary Care Provider [phone] Reason for Visit * Reason Comments Follow Up 3 month f/u with lab s Encounter Details Date Type Department Care Team (Late st Contact Info) Description 11/28/2020 10:00 AM CDT Office Visit [facility] Oncology and Hematology - Leonardo [address] [facility] [address] [place] [address] Rodolfo Hernandez MD [address] [facility] [address] [place] [address] Chronic anemia (Primary Dx) Social [...] Sign Reading Time Taken Comments Blood Pressure 108/64 11/28/2020 10:01 AM CDT Pulse 68 11/28/2020 10:01 AM CDT Temperature 36.5 ??C (97.7 ??F) 11/28/2020 1 0:01 AM CDT Respiratory Rate - - Oxygen Saturation 97% 11/28/2020 10: 01 AM CDT Inhaled Oxygen Concentration - - Weight 70.2 kg (154 lb 12.8 oz) 021 10:01 AM CDT Height 172.7 cm (5' 8 ) 11/28/2020 10:0 1 AM CDT Body Mass Index 23.54 11/28/2020 10:01 AM CDT documented in this encounter Progress Notes * Rodolfo Hernandez MD - 11/28/2020 12:56 PM CDT HEMATOLOGY / ONCOLOGY PROGRESS NOTE Patient Identification: Name: Chasidy Thomas Age: 75 y.o. Sex: female : 1945 DIAGNOSIS Multifactorial anemia. CURRENT TREATMENT Procrit 20,000 units started biweekly on July 04, 2020. TREATMENT HISTORY SUBJECTIVE Patient came into the office for follow-up visit and Procrit injection. She denies any tiredness and fatigue. No bleeding bruising. Weight and appetite stable. No other new complaints. Review of system Constitutional: denies fevers, sweats, [...] 102 WBC 10.8 platelet 208,000 creatinine 1.46 @IMAGEIMP@ Assessment: Plan: Patient Active Problem List Diagnosis Date Noted ??? Anemia of chronic renal failure, stage 3 (moderate) 06/25/2020 Multifactorial anemia. This is secondary to anemia of chronic kidney stage III disease as well as iron deficiency. Patient started Retacrit 20,000 units on July 04, 2020. Labs noted. Hemoglobin has declined but is still more than 10. We will continue to hold Bess andalee see her back in 3 months. She will continue oral iron 3 times a day with vitamin C daily. Chronic kidney stage III disease. Patient will continue follow-up with Dr. Gao. History of left renal pelvis mass. Cystoscopy done in June 2020 showed no evidence of malignancy. A. fib. Patient is on Xarelto. TOBACCO COUNSELING She is not a tobacco user. 11/28/2020 Rodolfo Hernandez MD documented in this encounter Plan of Treatment Scheduled Orders Name Type Priority Associated Diagnoses Orde r Schedule CBC WITH DIFFERENTIAL Lab Stat Chronic anemia Expected: 02/20/2021, Expires: 11/28/2021 BASIC METABOLIC PANEL Lab Stat Chronic anemia Expected: 02/20/2021, Expires: 11/28/2021 documented as of this encounter Visit Diagnoses Diagnosis Chronic anemia- Primary Anemia, unspecified documented in this encounter Care Teams Syruper Relationship Specialty Start Date End Date Jason Isaacs MD [address] [place] [address] PCP - General Internal Medicine 06/25/20 documented as of this encounter
--- OUTSIDE RECORDS SUMMARY | 2024-04-18 11:04 | XMS_ITS | Encounter Summary ---
Author Organization [facility] Address [address] [place] [address] Care Team Providers Care Music Writer Name Role Phone Jason Isaacs MD Primary Care Provider [phone] Encounter Details Date Type Department Care Team (Late st Contact Info) Description 03/12/2023 External Device Data STL ABSTRACTION Provider, Abstract [...] on filedocumented in this encounter Care Teams Music Writer Relationship Specialty Start Date End Date Jason Isaacs MD [address] [place] [address] PCP - General Internal Medicine 06/25/20 documented as of this encounter
--- OUTSIDE RECORDS SUMMARY | 2024-04-18 11:04 | XMS_ITS | Encounter Summary ---
Author Organization [facility] SAUNDRA Munoz [facility] Address [address] [place] [address] Care Team Providers Care Stamping Machine Operator Name Role Phone Jason Isaacs MD Primary Care Provider [phone] Encounter Details Date Type Department Care Team (Late st Contact Info) Description 12/25/2021 Orders Only [facility] Oncology and Hematology - Leonardo [address] [place] [address] Tierra Hardwick Chronic anemia Social History Tobacco [...] unspecified documented in this encounter Care Teams Stamping Machine Operator Relationship Specialty Start Date End Date Jason Isaacs MD [address] [place] [address] PCP - General Internal Medicine 06/25/20 documented as of this encounter
--- OUTSIDE RECORDS SUMMARY | 2024-04-18 11:04 | XMS_ITS | Encounter Summary ---
Author Organization [facility] SAUNDRA Munoz [facility] Address [address] [place] [address] Care Team Providers Care Brim Raiser Name Role Phone Jason Isaacs MD Primary Care Provider [phone] Reason for Visit * Reason Comments Follow Up 2 month f/u with lab s and inj Encounter Details Date Type Department Care Team (Late st Contact Info) Description 08/29/2020 10:30 AM CDT Office Visit [facility] [place] [facility] Oncology and Hematology - Leonardo [address] [facility] [address] [place] [address] Rodolfo Hernandez MD [address] [facility] [address] [place] [address] Chronic anemia (Primary Dx) Social [...] have Coronavirus / COVID-19? No / Unsure 08/29/2020 10:08 AM CDT documented as of this encounter Last Filed Vital Signs Vital Sign Reading Time Taken Comments Blood Pressure 125/77 08/29/2020 10:23 AM CDT Pulse 78 08/29/2020 10:23 AM CDT Temperature 36.3 ??C (97.4 ??F) 08/29/2020 10:23 AM C DT Respiratory Rate - - Oxygen Saturation 96% 08/29/2020 10:23 AM CDT Inhaled Oxygen Concentration - - Weight 68.2 kg (150 lb 6.4 oz) 08/29/2020 10:23 AM CDT Height 172.7 cm (5' 8 ) 08/29/2020 10:23 AM CDT Body Mass Index 22.87 08/29/2020 10:23 AM CDT documented in this encounter Progress Notes * Rodolfo Hernandez MD - 08/29/2020 11:10 AM CDT HEMATOLOGY / ONCOLOGY PROGRESS NOTE Patient Identification: Name: Chasidy Thomas Age: 75 y.o. Sex: female : 1945 DIAGNOSIS Multifactorial anemia. CURRENT TREATMENT Procrit 20,000 units started biweekly on July 04, 2020. TREATMENT HISTORY SUBJECTIVE Patient came into the office for follow-up visit. She is feeling much better and stronger. No bleeding and bruising. Weight and appetite stable. No other new complaint. Review of system Constitutional: denies fevers, sweats, improvement in tiredness and fatigue HEENT: denies sinus congestion, [...] 98 WBC 11.1 hemoglobin 12.9 platelets 211,000 @IMAGEIMP@ Assessment: Plan: Patient Active Problem List Diagnosis Date Noted ??? Anemia of chronic renal failure, stage 3 (moderate) 06/25/2020 Multifactorial anemia. This is secondary to anemia of chronic kidney stage III disease as well as iron deficiency. Patient is started Retacrit 20,000 units on July 04, 2020. She had very good response to the Retacrit treatment with significant improvement in hemoglobin. I will hold any further Procrit treatment and will see her back in 3 months. She will continue oral iron 3 times a day with vitamin C 500 mg daily. Chronic kidney stage III disease. This has been followed by Dr. Gao. History of left renal pelvis mass. Patient had cystoscopy done on July 05, [address] Anderson Kingsley and showed no evidence of neoplasm. Atrial fibrillation. Patient is on Xarelto. TOBACCO COUNSELING She is not a tobacco user. 08/29/2020 Rodolfo Hernandez MD documented in this encounter Plan of Treatment Scheduled Orders Name Type Priority Associated Diagnoses Orde r Schedule CBC WITH DIFFERENTIAL Lab Routine Chronic anemia Expected: 11/21/2020, Expires: 08/29/2021 BASIC METABOLIC PANEL Lab Routine Chronic anemia Expected: 11/21/2020, Expires: 08/29/2021 documented as of this encounter Visit Diagnoses Diagnosis Chronic anemia- Primary Anemia, unspecified documented in this encounter Care Teams Brim Raiser Relationship Specialty Start Date End Date Jason Isaacs MD [address] [place] [address] PCP - General Internal Medicine 06/25/20 documented as of this encounter
--- OUTSIDE RECORDS SUMMARY | 2024-04-18 11:04 | XMS_ITS | Encounter Summary ---
Author Organization [facility] SAUNDRA Munoz [facility] Address [address] [place] [address] Care Team Providers Care Vocational Training Director Name Role Phone Jason Isaacs MD Primary Care Provider [phone] Encounter Details Date Type Department Care Team (Late st Contact Info) Description 10/07/2022 Orders Only [facility] Oncology and Hematology - Leonardo [address] [facility] [address] [place] [address] Rodolfo Hernandez MD [address] [facility] [address] [place] [address] Social History Tobacco Use Types [...] Procedure Name Priority Date/Time Associated Diagnosis Comments CT ABDOMEN PELVIS WO CONTRAST Routine 09/29/2022 11:27 AM CDT documented in this encounter Results * CT ABDOMEN PELVIS WO CONTRAST (09/29/2022 11:27 AM CDT) Anatomical Region Laterality Modality Abdomen Other Rodolfo Hernandez MD CT ORDERABLES documented in this encounter Visit Diagnoses Not on filedocumented in this encounter Care Teams Vocational Training Director Relationship Specialty Start Date End Date Jason Isaacs MD [address] [place] [address] PCP - General Internal Medicine 06/25/20 documented as of this encounter
--- OUTSIDE RECORDS SUMMARY | 2024-04-18 11:04 | XMS_ITS | Encounter Summary ---
Author Organization [facility] SAUNDRA Munoz [facility] Address [address] [place] [address] Care Team Providers Care House Mover Supervisor Name Role Phone Jason Isaacs MD Primary Care Provider [phone] Encounter Details Date Type Department Care Team (Late st Contact Info) Description 08/28/2020 Orders Only [facility] Oncology and Hematology - Leonardo [address] [place] [address] Provider, Abstract NO ADDRESS ON FILE Social [...] Procedure Name Priority Date/Time Associated Diagnosis Comments MISCELLANEOUS LAB TEST Routine 08/27/2020 documented in this encounter Results * MISCELLANEOUS LAB TEST (08/27/2020) Abstract Provider CHEMISTRY ORDERABLES documented in this encounter Visit Diagnoses Not on filedocumented in this encounter Care Teams House Mover Supervisor Relationship Specialty Start Date End Date Jason Isaacs MD [address] [place] [address] (work) PCP - General Internal Medicine 06/25/20 documented as of this encounter
--- OUTSIDE RECORDS SUMMARY | 2024-04-18 11:04 | XMS_ITS | Encounter Summary ---
Author Organization [facility] Address [address] [place] [address] Care Team Providers Care Maintenance Inspector Name Role Phone Jason Isaacs MD Primary Care Provider [phone] Encounter Details Date Type Department Care Team [...] filedocumented in this encounter Care Teams Maintenance Inspector Relationship Specialty Start Date End Date Jason Isaacs MD [address] [place] [address] PCP - General Internal Medicine 06/25/20 documented as of this encounter
--- OUTSIDE RECORDS SUMMARY | 2024-04-18 11:04 | XMS_ITS | Encounter Summary ---
Author Organization [facility] SAUNDRA Munoz [facility] Address [address] [place] [address] Care Team Providers Care Greeting Card Writer Name Role Phone Jason Isaacs MD Primary Care Provider [phone] Reason for Visit * Reason Comments Follow Up Encounter Details Date Type Department Care Team (Late st Contact Info) Description 12/31/2021 10:15 AM CDT Office Visit [facility] Oncology and Hematology - Leonardo [address] [facility] [address] [place] [address] Rodolfo Hernandez MD [address] [facility] [address] [place] [address] Chronic anemia (Primary Dx) Social [...] Sign Reading Time Taken Comments Blood Pressure 145/84 12/31/2021 10:16 AM CDT Pulse 68 12/31/2021 10:16 AM CDT Temperature 36.3 ??C (97.3 ??F) 12/31/2021 10:16 AM C DT Respiratory Rate - - Oxygen Saturation 96% 12/31/2021 10:16 AM CDT Inhaled Oxygen Concentration - - Weight 70.3 kg (155 lb) 12/31/2021 10:16 AM CDT Height 170.2 cm (5' 7 ) 12/31/2021 10:16 AM CDT Body Mass Index 24.28 12/31/2021 10:16 AM CDT documented in this encounter Progress Notes * Rodolfo Hernandez MD - 12/31/2021 10:50 AM CDT HEMATOLOGY / ONCOLOGY PROGRESS NOTE Patient Identification: Name: Chasidy Thomas Age: 76 y.o. Sex: female : 1945 DIAGNOSIS Multifactorial anemia. CURRENT TREATMENT Surveillance TREATMENT HISTORY Procrit 20,000 units started biweekly on July 04, 2020. SUBJECTIVE Patient came into the office for follow-up visit. She denies any excessive tiredness and fatigue. Weight and appetite stable. No other new [...] 1.59 WBC 9.6 hemoglobin 13.5 platelet 178,000 Assessment: Plan: Patient Active Problem List Diagnosis Date Noted Anemia of chronic renal failure, stage 3 (moderate) 06/25/2020 Multifactorial anemia. This is secondary to anemia of chronic kidney stage III disease as well as iron deficiency. Patient started Retacrit 20,000 units on July 04, 2020. Labs noted. Hemoglobin remained stable at 13.5. No need for Procrit injection. She will continue oral iron once a day with vitamin C. Follow-up with sd in 8 months. Chronic kidney stage III disease. Stable. She will continue follow-up with Dr. Gao. Liliana Gonzalez on Xarelto. TOBACCO COUNSELING She is not a tobacco user. 12/31/2021 Rodolfo Hernandez MD documented in this encounter Plan of Treatment Not on file documented as of this encounter Visit Diagnoses Diagnosis Chronic anemia- Primary Anemia, unspecified documented in this encounter Care Teams Greeting Card Writer Relationship Specialty Start Date End Date Jason Isaacs MD [address] [place] [id number] PCP - General Internal Medicine 06/25/20 documented as of this encounter
--- OUTSIDE RECORDS SUMMARY | 2024-04-18 11:04 | XMS_ITS | Encounter Summary ---
Author Organization [facility] SAUNDRA Munoz [facility] Address [address] [place] [address] Care Team Providers Care Apprenticeship Training Representative Name Role Phone Jason Isaacs MD Primary Care Provider [phone] Encounter Details Date Type Department Care Team (Late st Contact Info) Description 12/25/2021 Orders Only [facility] Oncology and Hematology - Leonardo [address] [address] Provider, Abstract NO ADDRESS ON FILE [...] Associated Diagnosis Comments COMPREHENSIVE METABOLIC PANEL Routine 12/23/2021 documented in this encounter Results * COMPREHENSIVE METABOLIC PANEL (12/23/2021) Blood Abstract Provider CHEMISTRY ORDERABLES documented in this encounter Visit Diagnoses Not on filedocumented in this encounter Care Teams Apprenticeship Training Representative Relationship Specialty Start Date End Date Jason Isaacs MD [address] [place] [address] PCP - General Internal Medicine 06/25/20 documented as of this encounter
--- OUTSIDE RECORDS SUMMARY | 2024-04-18 11:04 | XMS_ITS | Encounter Summary ---
Author Organization [facility] SAUNDRA Munoz [facility] Address [address] [place] [address] Care Team Providers Care Operations Research Group Manager Name Role Phone Jason Isaacs MD Primary Care Provider [phone] Reason for Visit * Reason Comments Follow Up Encounter Details Date Type Department Care Team (Late st Contact Info) Description 06/09/2022 2:30 PM RN CLINICAL RESOURCE Office Visit [facility] Oncology and Hematology - Leonardo [address] [facility] [address] [place] [address] Rodolfo Hernandez MD [address] [facility] [address] [place] [address] Liver lesion (Primary Dx) Social [...] suspected to have Coronavirus/COVID-19? No / Unsure 06/09/2022 2:15 PM RN CLINICAL RESOURCE documented as of this encounter Last Filed Vital Signs Vital Sign Reading Time Taken Comments Blood Pressure 135/89 06/09/2022 2:25 PM RN CLINICAL RESOURCE Pulse 80 06/09/2022 2:25 PM RN CLINICAL RESOURCE Temperature 36.3 ??C (97.3 ??F) 06/09/2022 2:25 PM CS T Respiratory Rate 14 06/09/2022 2:25 PM RN CLINICAL RESOURCE Oxygen Saturation 95% 06/09/2022 2:25 PM RN CLINICAL RESOURCE Inhaled Oxygen Concentration - - Weight 66 kg (145 lb 9.6 oz) 06/09/2022 2:25 PM RN CLINICAL RESOURCE Height - - Body Mass Index 22.8 12/31/2021 10:16 AM CDT documented in this encounter Progress Notes * Rodolfo Hernandez MD - 06/09/2022 6:18 PM CST HEMATOLOGY / ONCOLOGY PROGRESS NOTE Patient Identification: Name: Chasidy Thomas Age: 76 y.o. Sex: female : 1945 DIAGNOSIS Liver lesion Multifactorial anemia. CURRENT TREATMENT Surveillance TREATMENT HISTORY Procrit 20,000 units started biweekly on July 04, 2020. SUBJECTIVE Patient came into the office for follow-up visit after the CAT scan. She denies any weight loss. Denies any abdominal pain. No nausea vomiting. No other new complaints. Review of system Constitutional: denies fevers, sweats, weight and appetite stable. Denies any excessive tiredness and fatigue HEENT: denies sinus congestion, hearing or vision problems Respiratory: denies cough, dyspnea, wheeze Cardiovascular: denies chest pain, exertional chest pressure/discomfort, nausea, syncope, shortnessof breath GI: denies constipation, diarrhea, dsyphagia, reflux symptoms, vomiting, melena, occasional lower abdominal pain : denies dysuria, frequency, incontinence, [...] hemoglobin 13.5 platelet 164,000 CA 19-9 110 Assessment: Plan: Patient Active Problem List Diagnosis [...] cancer in the liver or in pancreas. Repeat CT abdomen and pelvis on June 02 showed a stable focal hypodense area in the left hepaticlobe previously was shown as focal steatosis on the MRI. No significant change. Clinically she remains asymptomatic. I plan to see her back in [address] scan and the labs including tumor marker. Multifactorial anemia. Stable. A-fib. Continue Xarelto. CKD stage III. She will follow with Dr. Gao for elevated PTH level as well. TOBACCO COUNSELING She is not a tobacco user. 06/09/2022 Rodolfo Hernandez MD CLINICAL RESOURCE documented in this encounter Plan of Treatment Not on file documented as of this encounter Visit Diagnoses Diagnosis Liver lesion- Primary Other specified disorders of liver documented in this encounter Care Teams Operations Research Group Manager Relationship Specialty Start Date End Date Jason Isaacs MD [address] [place] [address] PCP - General Internal Medicine 06/25/20 documented as of this encounter
--- OUTSIDE RECORDS SUMMARY | 2024-04-18 11:04 | XMS_ITS | Encounter Summary ---
Author Organization [facility] Address [address] [place] [address] Care Team Providers Care Residential Fee Appraiser Name Role Phone Jason Isaacs MD Primary Care Provider [phone] Encounter Details Date Type Department Care Team [...] on filedocumented in this encounter Care Teams Residential Fee Appraiser Relationship Specialty Start Date End Date Jason Isaacs MD [address] [place] [address] PCP - General Internal Medicine 06/25/20 documented as of this encounter
--- OUTSIDE RECORDS SUMMARY | 2024-04-18 11:04 | XMS_ITS | Encounter Summary ---
Author Organization [facility] SAUNDRA Munoz [facility] Address [address] [place] [address] Care Team Providers Care Carbon Cleaner Name Role Phone Jason Isaacs MD Primary Care Provider [phone] Encounter Details Date Type Department Care Team ([facility] st Contact Info) Description 06/06/2022 Orders Only [facility] Oncology and Hematology - Leonardo [address] [address] Chantell Morales Liver lesion Social History Tobacco Use Types Packs/Day Years [...] Coronavirus/COVID-19? No / Unsure 06/09/2022 2:15 PM MAGENTO WEB DEVELOPER documented as of this encounter Plan of Treatment Not on file documented as of this encounter Procedures Procedure Name Priority Date/Time Associated Diagnosis Comments CHG CA 19 9 Routine 06/02/2022 documented in this encounter Results * CHG CA 19 9 (06/02/2022) Rodolfo Hernandez MD CHG - LABORATORY documented in this encounter Visit Diagnoses Diagnosis Liver lesion Other specified disorders of liver documented in this encounter Care Teams Carbon Cleaner Relationship Specialty Start Date End Date Jason Isaacs MD [address] [place] [address] PCP - General Internal Medicine 06/25/20 documented as of this encounter
--- OUTSIDE RECORDS SUMMARY | 2024-04-18 11:04 | XMS_ITS | Encounter Summary ---
Author Organization [facility] Address [address] Rojasn: Epic Prelude ADT [place] [address] Care Team Providers Care Crm Functional Analyst Name Role Phone Jason Isaacs MD Primary Care Provider [phone] Encounter Details Date Type Department Care Team (Latest Contact Info) Description 08/29/2020 Travel Social History Tobacco Use Types Packs/Day [...] on filedocumented in this encounter Care Teams Crm Functional Analyst Relationship Specialty Start Date End Date Jason Isaacs MD [address] [place] [address] PCP - General Internal Medicine 06/25/20 documented as of this encounter
--- OUTSIDE RECORDS SUMMARY | 2024-04-18 11:04 | XMS_ITS | Encounter Summary ---
Author Organization [facility] SAUNDRA Munoz [facility] Address [address] [place] [address] Care Team Providers Care Case Hardener Name Role Phone Jason Isaacs MD Primary Care Provider [phone] Reason for Visit * Reason Comments Establish Care New Pt for Chronic A nemia Encounter Details Date Type Department Care Team (Late st Contact Info) Description 06/25/2020 1:00 PM DIE STORAGE WORKER Office Visit [facility] Oncology and Hematology - Leonardo [address] [facility] [address] [place] [address] Rodolfo Hernandez MD [address] [facility] [address] [place] [address] Chronic anemia (Primary Dx); Anemia of chronic renal failure, stage 3a Social History Tobacco Use Types Packs/Day Years [...] COVID-19? No / Unsure 06/25/2020 12:30 PM DIE STORAGE WORKER documented as of this encounter Last Filed Vital Signs Vital Sign Reading Time Taken Comments Blood Pressure 111/66 06/25/2020 1:14 PM DIE STORAGE WORKER Pulse 78 06/25/2020 1:14 PM DIE STORAGE WORKER Temperature 36.8 ??C (98.2 ??F) 06/25/2020 1:14 PM CS T Respiratory Rate - - Oxygen Saturation 96% 06/25/2020 1:14 PM DIE STORAGE WORKER Inhaled Oxygen Concentration - - Weight 66.6 kg (146 lb 12.8 oz) 06/25/2020 1:14 PM DIE STORAGE WORKER Height 172.7 cm (5' 8 ) 06/25/2020 1:14 PM DIE STORAGE WORKER Body Mass Index 22.32 06/25/2020 1:14 PM DIE STORAGE WORKER documented in this encounter Progress Notes * Rodolfo Hernandez MD - 06/25/2020 4:32 PM CST Hematology-oncology consult Note Requesting Physician Jason Isaacs MD Primary Care Physician Jason Isaacs MD Problem list There is no problem list on file for this patient. Previous TREATMENT ? Measurable Disease ? Reason for Visit Chasidy Thomas is a 74 y.o. female who was referred for consultation for anemia. History of present illness This is a pleasant 74-year-old female with history of hypertension rheumatoid arthritis and atrial fibrillation found to have anemia about 2 months ago. She denies any bleeding and bruising. She had colonoscopy done 2 years ago and came back unremarkable except diverticulosis. Her weight and appetite stable. She does have some shortness of breath along with tiredness and fatigue. Deniesany new lumps bumps or lymphadenopathy. Denies any diarrhea. She never received blood transfusion. She is not taking any iron replacement. Labs from May 31, 2020 showed hemoglobin 8.8 with MCV of88.1 normal platelet and WBC count. Erythropoietin level was 17.4. Patient also has a history of chronic kidney stage IIIa disease and renal ultrasound was performed. Renal ultrasound from April 03, 2020 showed bilateral increased renal cortical echogenicity consistent with medical renal disease along with hypoechoic region in the left renal pelvis could represent solid mass. Patient has been referred to the urologist. Past Medical History Past Medical History: Diagnosis Date ??? HTN (hypertension) ??? Nutritional anemia, unspecified ??? Rheumatoid arthritis, adult Surgical History Past Surgical History: Procedure Laterality Date ??? HX APPENDECTOMY ??? HX COLONOSCOPY ??? HX KNEE REPLACEMENT, TOTAL Right ??? HX TONSILLECTOMY ??? HX TUBAL LIGATION Medications Current Outpatient Medications Medication Sig Dispense Refill ??? ALPRAZolam (XANAX) 0.5 mg tablet alprazolam 0.5 mg tablet TAKE 1 TABLET BY MOUTH EVERY DAY AT BEDTIME ??? atorvastatin (LIPITOR) 20 mg tablet atorvastatin 20 mg tablet ??? hydroCHLOROthiazide 25 mg tablet hydrochlorothiazide 25 mg tablet ??? leflunomide (ARAVA) 10 mg tablet leflunomide 10 mg tablet ??? losartan (COZAAR) 25 mg tablet losartan 25 mg tablet ??? magnesium oxide (MAG-OX) 400 mg (241.3 mg magnesium) tablet magnesium oxide 400 mg (241.3 mg magnesium) tablet TAKE 1 TABLET BY MOUTH TWICE A DAY ??? metoprolol succinate (TOPROL XL) 25 mg Extended Release 24 hour tablet Take 12.5 mg by mouth. ??? omeprazole (PriLOSEC) 40 mg Capsule, Delayed Release(E.C.) omeprazole 40 mg capsule,delayed release ??? predniSONE (DELTASONE) 5 mg tablet prednisone 5 mg tablet ??? rivaroxaban (Xarelto) 15 mg Tablet Xarelto 15 mg tablet ??? spironolactone (ALDACTONE) 25 mg tablet spironolactone 25 mg tablet ??? calcium crb,cit/D3/min34/tameka (CITRACAL PLUS BONE DENSITY ORAL) Citracal Plus Bone Density once a day No current facility-administered medications for this visit. Allergies Allergies Allergen Reactions ??? Oxycodone Dizziness, Hypotension and Other (See Comments) ??? Sulfadiazine Nausea and Vomiting ??? Sulfasalazine Other (See Comments) Immunizations: There is no immunization history on file for this patient. Family History Family History Problem Relation Name Age of Onset ??? Cancer Father ??? Heart Disease Mother ??? Kidney Cancer Sister Social History Social History Tobacco Use ??? Smoking status: Former Smoker ??? Smokeless tobacco: Never Used ??? Tobacco comment: quit over 25 yrs ago Substance Use Topics ??? Alcohol use: Yes Comment: occasional Review of Systems Constitutional: No fever; no night sweats; no anorexia; no weight loss; complain of tiredness and fatigue NEENT: No headache; no change in vision; no change in hearing; no sore throat; no dysphagia Respiratory: Complain of shortness of breath; no pleuritic chest pain; no cough; no hemoptysis Cardiac: No cardiac-like chest pain; no palpitations; no orthopnea; no PND; complain of TORRE Breasts: No tenderness; no masses GI: No abdominal pain; no nausea; no vomiting; no diarrhea; no hematochezia; no melena : No dysuria; no frequency; no hesitancy; no hematuria EVALUATION ADVISOR: Musculosketetal: no bone pain; no arthralgia; no joint swelling; no myalgia; Skin: no pruritis; no rash; no petechiae; no ecchymoses Endocrine: no polydipsia; no polyuria; no unusual weight gain Neuro: No headache; no change in vision; no sensory changes; no muscle weakness; no confusion; no seizures Psych: no anxiety; no depression; Physical Exam Vitals: As per nursing note Constitutional: Well developed, well nourished, no acute distress, non-toxic appearance Teeth and gum. No signs of infection or swelling. Eyes: PERRL, conjunctiva normal HEENT: Atraumatic, external ears normal, nose normal, oropharynx moist, no pharyngeal exudates. no sinus tenderness Neck- normal range of motion, no tenderness, supple Respiratory: No respiratory distress, normal breath sounds, no rales, no wheezing Cardiovascular: Normal rate, normal rhythm, no murmurs, no gallops, no rubs GI: Soft, nondistended, normal bowel sounds, nontender, no splenomegaly, no hepatomegaly, no mass, no rebound, no guarding : No costovertebral angle tenderness Musculoskeletal: No edema, no tenderness, no deformities. Back- no tenderness Integument: Well hydrated, no rash, Digits and nails inspection normal Lymphatic: No lymphadenopathy noted Neurologic: Alert & oriented x 3, CN 2-12 normal, normal motor function, normal sensory function, no focal deficits noted Psychiatric: Speech and behavior appropriate ? labs No results found for this or any previous visit (from the past 24 hour(s)). Labs from May 31, 2020 showed hemoglobin 8.8 MCV 88.1 platelet 2 86,000 neutrophils 57% creatinine 2.11 iron 26 iron saturation 7% Pathology ? Imaging & Other Studies Performance Status? Assessment / Plan: ? Normocytic anemia. Patient is a pleasant 74-year-old female with recent diagnosis of chronic kidney stage IIIa disease. Patient also has a history of atrial fibrillation hypertension and rheumatoid arthritis. She is on Xarelto. She denies any bleeding including melena hematochezia. She is complaining of shortness of breath and tiredness and fatigue. She had colonoscopy done 2 years ago and only showed diverticulosis. Renal ultrasound finding reviewed with the patient. I have discussedthe differential diagnosis of normocytic anemia with the patient this is likely secondary to anemiaof chronic kidney disease along with possibility of iron deficiency of unclear etiology. I will check Hemoccult stool testing. She may need to have a colonoscopy again based on the findings. I will check iron panel vitamin B12 level reticulocyte count LDH with repeat CBC. I will start her on Procrit injection 20,000 units on a biweekly basis. Based on the iron profile we would recommend oral ironversus IV iron infusion. I have answered all the questions to patient satisfaction. Possibility of left renal pelvis mass. Patient is going to see Dr. Anderson Kingsley. Chronic kidney stage III disease. She is going to follow-up with Dr. Gao. Atrial fibrillation. Patient is on Xarelto. Thank you very much for allowing me to participate in Chasidy Thomas's evaluation and management. Please feel free to contact if I can be of any further assistance in your patient???s care requiring hematology or oncology evaluation. Sincerely, ? ? Rodolfo Hernandez M.D. cell TOBACCO COUNSELING She is not a tobacco user. Rodolfo Hernandez MD ,06/25/2020 4:32 PM ? Total time spent 80 minutes, two third of the total time spent counseling patient [id number]. CC:?Jason Isaacs MD STORAGE WORKER documented in this encounter Plan of Treatment Scheduled Orders Name Type Priority Associated Diagnoses Orde r Schedule CBC WITH DIFFERENTIAL Lab Routine Chronic anemia Expected: 06/25/2020, Expires: 06/25/2021 COMPREHENSIVE METABOLIC PANEL Lab Routine Chronic anemia Expected: 06/25/2020, Expires: 06/25/2021 FERRITIN Lab Routine Chronic anemia Expected: 06/25/2020, Expires: 06/25/2021 IRON, TIBC, AND PERCENT SATURATION Lab Routine Chronic anemia Expected: 06/25/2020, Expires: 06/25/2021 LACTATE DEHYDROGENASE Lab Routine Chronic anemia Expected: 06/25/2020, Expires: 06/25/2021 VITAMIN B12 AND FOLATE Lab Routine Chronic anemia Expected: 06/25/2020, Expires: 06/25/2021 METHYLMALONIC ACID Lab Routine Chronic anemia Expected: 06/25/2020, Expires: 06/25/2021 RETICULOCYTES Lab Routine Chronic anemia Expected: 06/25/2020, Expires: 06/25/2021 PROTEIN ELECTROPHORESIS W/REFLEX,SERUM Lab Routine Chronic anemia Expected: 06/25/2020, Expires: 06/25/2021 documented as of this encounter Visit Diagnoses Diagnosis Chronic anemia- Primary Anemia, unspecified Anemia of chronic renal failure, stage 3a documented in this encounter Care Teams Case Hardener Relationship Specialty Start Date End Date Jason Isaacs MD [address] [place] [address] PCP - General Internal Medicine 06/25/20 documented as of this encounter
--- OUTSIDE RECORDS SUMMARY | 2024-04-18 11:04 | XMS_ITS | Encounter Summary ---
Author Organization [facility] SAUNDRA Munoz [facility] Address [address] [place] [address] Care Team Providers Care Film Archivist Name Role Phone Jason Isaacs MD Primary Care Provider [phone] Reason for Referral * CT Scan (Routine) - Closed Specialty Diagnoses / Procedures Referred By Contac t Referred To Contact Diagnoses Liver lesion Procedures CT ABDOMEN PELVIS W CONTRAST Rodolfo Hernandez MD [address] [employer] [address] [place] [address] [address] Referral ID Status Reason Start Date Expiration Date V isits Requested Visits Authorized [id number] Closed STL CTS 05/13/2023 06/12/2024 1 1 TECHNICIAN Reason for Visit * Reason Comments Follow Up Encounter Details Date Type Department Care Team (Late st Contact Info) Description 05/13/2023 9:30 AM DATA TECHNICIAN Office Visit [facility] Oncology and Hematology - Leonardo [address] [facility] [address] [place] [address] Rodolfo Hernandez MD [address] [email or web address] [facility] [address] [place] [address] Liver lesion (Primary Dx) Social [...] Comments Blood Pressure 169/79 05/13/2023 9:11 AM DATA TECHNICIAN Pulse 79 05/13/2023 9:08 AM DATA TECHNICIAN Temperature 36 ??C (96.8 ??F) 05/13/2023 9:08 AM DATA TECHNICIAN Respiratory Rate 10 05/13/2023 9:08 AM DATA TECHNICIAN Oxygen Saturation 96% 05/13/2023 9:08 AM DATA TECHNICIAN Inhaled Oxygen Concentration - - Weight 68.5 kg (151 lb) 05/13/2023 9:08 AM DATA TECHNICIAN Height - - Body Mass Index 23.65 12/31/2021 10:16 AM CDT documented in this encounter Progress Notes * Rodolfo Hernandez MD - 05/13/2023 9:50 AM CST HEMATOLOGY / ONCOLOGY PROGRESS NOTE Patient Identification: Name: Chasidy Thomas Age: 77 y.o. Sex: female : 1945 DIAGNOSIS Liver lesion Multifactorial anemia. CURRENT TREATMENT Surveillance TREATMENT HISTORY Procrit 20,000 units started biweekly on July 04, 2020. SUBJECTIVE Patient came to the office for follow-up visit. She denies any abdominal pain. Denies any nausea vomiting. She does have some diarrhea and takes Imodium. Weight and appetite stable. No other new complaints. Review of system Constitutional: denies fevers, sweats, denies any excessive tiredness and fatigue, weight and appetite stable HEENT: denies sinus congestion, hearing or vision problems Respiratory: denies cough, dyspnea, wheeze Cardiovascular: denies chest pain, exertional chest pressure/discomfort, nausea, syncope, shortnessof breath GI: denies constipation, dsyphagia, reflux symptoms, vomiting, melena, complain of intermittent diarrhea without any abdominal pain : denies dysuria, frequency, incontinence, urgency Integumentary system: no lymphadenopathy, sweats, flushing Musculoskeletal: denies: myalgia, arthralgia Neurological: denies blurry or disturbed vision, numbness/weakness, dizziness Skin: No lumps, bumps or rashes. 12 point review of system was reviewed Objective: Vital signs in [...] 30 PTH 49 creatinine 1.3 hemoglobin 12.7 Labs from May 06 showed creatinine 1.6 WBC 9.6 hemoglobin 12.7 platelet 197,000 total bilirubin0.5 CEA 19-9 137 Assessment: Plan: Patient Active Problem List Diagnosis [...] cancer in the liver or in pancreas. Labs noted. CA 19-9 has gone further higher. Clinically she is asymptomatic other than diarrhea. Wewill order CT scan of abdomen pelvis now and discussed the results with her in 2 weeks due to elevated tumor markers. Anemia of chronic kidney disease. Hemoglobin is stable. No need for Procrit. A-fib. Continue Xarelto. Chronic kidney stage III disease. Stable and follow-up with Dr. Gao. TOBACCO COUNSELING She is not a tobacco/nicotine user. 05/13/2023 Rodolfo Hernandez MD TECHNICIAN documented in this encounter Plan of Treatment Scheduled Orders Name Type Priority Associated Diagnoses Orde r Schedule CT ABDOMEN PELVIS W CONTRAST Imaging Routine Liver lesion Expected: 05/20/2023, Expires: 05/13/2024 documented as of this encounter Visit Diagnoses Diagnosis Liver lesion- Primary Other specified disorders of liver documented in this encounter Care Teams Film Archivist Relationship Specialty Start Date End Date Jason Isaacs MD [address] [place] [address] PCP - General Internal Medicine 06/25/20 documented as of this encounter
--- OUTSIDE RECORDS SUMMARY | 2024-04-18 11:04 | XMS_ITS | Encounter Summary ---
Author Organization [facility] Address [address] Rojasn: Epic Prelude ADT [place] [address] Care Team Providers Care Gambling Floor Supervisor Name Role Phone Jason Isaacs MD Primary Care Provider [phone] Encounter Details Date Type Department Care Team (Latest Contact Info) Description 06/09/2022 Travel Social History Tobacco Use Types Packs/Day [...] Coronavirus/COVID-19? No / Unsure 06/09/2022 2:15 PM SALES TECHNICIAN documented as of this encounter Plan of Treatment Not on file documented as of this encounter Visit Diagnoses Not on filedocumented in this encounter Care Teams Gambling Floor Supervisor Relationship Specialty Start Date End Date Jason Isaacs MD [address] [place] [address] PCP - General Internal Medicine 06/25/20 documented as of this encounter
--- OUTSIDE RECORDS SUMMARY | 2024-04-18 11:04 | XMS_ITS | Encounter Summary ---
Author Organization [facility] SAUNDRA Munoz [facility] Address [address] [place] [address] Care Team Providers Care Concrete Mixer Name Role Phone Jason Isaacs MD Primary Care Provider [phone] Encounter Details Date Type Department Care Team (Late st Contact Info) Description 07/03/[address] [facility] Oncology and Hematology - Leonardo [address] [facility] [address] [place] [address] Rodolfo Hernandez MD [address] [facility] [address] [place] [address] Chronic anemia Social History Tobacco [...] have Coronavirus / COVID-19? No / Unsure 07/04/2020 8:27 AM FINANCIAL AUDITOR documented as of this encounter Plan of Treatment Not on file documented as of this encounter Visit Diagnoses Diagnosis Chronic anemia Anemia, unspecified documented in this encounter Care Teams Concrete Mixer Relationship Specialty Start Date End Date Jason Isaacs MD [address] [place] [address] PCP - General Internal Medicine 06/25/20 documented as of this encounter
--- OUTSIDE RECORDS SUMMARY | 2024-04-18 11:04 | XMS_ITS | Encounter Summary ---
Author Organization [facility] Address [address] [place] [address] Care Team Providers Care It Support Engineer Name Role Phone Jason Isaacs MD Primary Care Provider [phone] Encounter Details Date Type Department Care Team (Late st Contact Info) Description 03/31/2023 External Device Data STL ABSTRACTION Provider, Abstract [...] on filedocumented in this encounter Care Teams It Support Engineer Relationship Specialty Start Date End Date Jason Isaacs MD [address] [place] [address] PCP - General Internal Medicine 06/25/20 documented as of this encounter
--- OUTSIDE RECORDS SUMMARY | 2024-04-18 11:04 | XMS_ITS | Encounter Summary ---
Author Organization [facility] Address [address] [place] [address] Care Team Providers Care Talent Acquisition Program Manager Name Role Phone Jason Isaacs MD Primary Care Provider [phone] Encounter Details Date Type Department Care Team (Late st Contact Info) Description 04/08/2023 External Device Data STL ABSTRACTION Provider, Abstract [...] on filedocumented in this encounter Care Teams Talent Acquisition Program Manager Relationship Specialty Start Date End Date Jason Isaacs MD [address] [place] [address] PCP - General Internal Medicine 06/25/20 documented as of this encounter
--- OUTSIDE RECORDS SUMMARY | 2024-04-18 11:04 | XMS_ITS | Encounter Summary ---
Author Organization [facility] SAUNDRA Munoz [facility] Address [address] [place] [address] Care Team Providers Care Incident Handler Name Role Phone Jason Isaacs MD Primary Care Provider [phone] Encounter Details Date Type Department Care Team (Late st Contact Info) Description 05/15/2023 Orders Only [facility] Oncology and Hematology - Leonardo [address] [facility] [address] [place] [address] Rodolfo Hernandez MD [address] [facility] [address] [place] [address] Social History Tobacco Use Types [...] Date/Time Associated Diagnosis Comments CT ABDOMEN PELVIS W CONTRAST Routine 05/15/2023 2:11 PM INTEGRATED MARKETING MANAGER documented in this encounter Results * CT ABDOMEN PELVIS W CONTRAST (05/15/2023 2:11 PM INTEGRATED MARKETING MANAGER) Anatomical Region Laterality Modality Abdomen Other Rodolfo Hernandez MD CT ORDERABLES documented in this encounter Visit Diagnoses Not on filedocumented in this encounter Care Teams Incident Handler Relationship Specialty Start Date End Date Jason Isaacs MD [address] [place] [address] PCP - General Internal Medicine 06/25/20 documented as of this encounter
--- OUTSIDE RECORDS SUMMARY | 2024-04-18 11:04 | XMS_ITS | Encounter Summary ---
Author Organization [facility] SAUNDRA Munoz [facility] Address [address] [place] [address] Care Team Providers Care Devulcanizer Operator Name Role Phone Jason Isaacs MD Primary Care Provider [phone] Encounter Details Date Type Department Care Team ([facility] st Contact Info) Description 03/05/2022 Orders Only [facility] Oncology and Hematology - Leonardo [address] [facility] [address] [place] [address] Rodolfo Hernandez MD [address] [facility] [address] [place] [address] Social History Tobacco Use Types [...] Procedure Name Priority Date/Time Associated Diagnosis Comments MRI ABDOMEN W WO CONTRAST Routine 02/17/2022 documented in this encounter Results * MRI ABDOMEN W WO CONTRAST (02/17/2022) Anatomical Region Laterality Modality Abdomen Other Rodolfo Hernandez MD MR ORDERABLES documented in this encounter Visit Diagnoses Not on filedocumented in this encounter Care Teams Devulcanizer Operator Relationship Specialty Start Date End Date Jason Isaacs MD [address] [place] [phone] PCP - General Internal Medicine 06/25/20 documented as of this encounter
--- OUTSIDE RECORDS SUMMARY | 2024-04-18 11:04 | XMS_ITS | Encounter Summary ---
Author Organization [facility] SAUNDRA Munoz [facility] Address [address] [place] [address] Care Team Providers Care Timing Machine Operator Name Role Phone Jason Isaacs MD Primary Care Provider [phone] Encounter Details Date Type Department Care Team ([facility] st Contact Info) Description 05/11/2023 Orders Only [facility] Oncology and Hematology - Leonardo [address] [facility] [address] [place] [address] Rodolfo Hernandez MD [address] [facility] [address] [place] [address] Social History Tobacco Use Types [...] Procedure Name Priority Date/Time Associated Diagnosis Comments CANCER ANTIGEN 19-9 Routine 05/06/2023 8:55 AM TIMBER TRIMMER documented in this encounter Results * CANCER ANTIGEN 19-9 (05/06/2023 8:55 AM TIMBER TRIMMER) Blood Rodolfo Hernandez MD CHEMISTRY ORDERABLES documented in this encounter Visit Diagnoses Not on filedocumented in this encounter Care Teams Timing Machine Operator Relationship Specialty Start Date End Date Jason Isaacs MD [address] [place] [address] PCP - General Internal Medicine 06/25/20 documented as of this encounter
--- OUTSIDE RECORDS SUMMARY | 2024-04-18 11:04 | XMS_ITS | Encounter Summary ---
Author Organization [facility] SAUNDRA Munoz [facility] Address [address] [place] [address] Care Team Providers Care Special Education Teachers Name Role Phone Jason Isaacs MD Primary Care Provider [phone] Reason for Visit * Reason Comments Follow Up F/U with Inj Encounter Details Date Type Department Care Team (Late st Contact Info) Description 07/04/2020 8:45 AM LAW FIRM ADMINISTRATOR Office Visit [facility] Oncology and Hematology - Leonardo [address] [facility] [address] [place] [address] Rodolfo Hernandez MD [address] [facility] [address] [place] [address] Chronic anemia (Primary Dx) Social [...] COVID-19? No / Unsure 07/04/2020 8:27 AM LAW FIRM ADMINISTRATOR documented as of this encounter Last Filed Vital Signs Vital Sign Reading Time Taken Comments Blood Pressure 138/74 07/04/2020 8:47 AM LAW FIRM ADMINISTRATOR Pulse 75 07/04/2020 8:47 AM LAW FIRM ADMINISTRATOR Temperature 36.5 ??C (97.7 ??F) 07/04/2020 8:47 AM CS T Respiratory Rate - - Oxygen Saturation 95% 07/04/2020 8:47 AM LAW FIRM ADMINISTRATOR Inhaled Oxygen Concentration - - Weight 66.8 kg (147 lb 3.2 oz) 07/04/2020 8:47 A M LAW FIRM ADMINISTRATOR Height 172.7 cm (5' 8 ) 07/04/2020 8:47 AM LAW FIRM ADMINISTRATOR Body Mass Index 22.38 07/04/2020 8:47 AM LAW FIRM ADMINISTRATOR documented in this encounter Progress Notes * Rodolfo Hernandez MD - 07/04/2020 2:51 PM CST HEMATOLOGY / ONCOLOGY PROGRESS NOTE Patient Identification: Name: Chasidy Thomas Age: 74 y.o. Sex: female : 1945 DIAGNOSIS Multifactorial anemia. CURRENT TREATMENT Procrit 20,000 units started biweekly on July 04, 2020. TREATMENT HISTORY SUBJECTIVE Patient came into the office for follow-up visit. She complain of tiredness and fatigue. Denies anymelena hematochezia. Denies any bleeding and bruising. Weight and appetite stable. No other new complaints. Review of system Constitutional: denies fevers, sweats, complain of tiredness and fatigue HEENT: denies sinus congestion, [...] dizziness Skin: No lumps, bumps or rashes. Objective: Vital signs in last 24 hours: [...] No lymphadenopathy Neuro: No obvious focal deficit PATH LABS Labs from July 04 showed hemoglobin 8.7. Labs from June 25 showed creatinine 1.87 iron 30 saturation 7% ferritin 28 B12 762 LDH 181 serum protein electrophoresis showed no monoclonal spike. @IMAGEIMP@ Assessment: Plan: Patient Active Problem List Diagnosis Date Noted ??? Anemia of chronic renal failure, stage 3 (moderate) 06/25/2020 Multifactorial anemia. This is secondary to anemia of chronic kidney stage III disease as well as iron deficiency. I will start her on Retacrit 20,000 units on a biweekly basis. I have also instructed her to take oral iron with ferrous sulfate 325 mg 3 times a day with vitamin C 500 mg daily. I will repeat labs again in 2 months. Chronic kidney stage III disease. Patient will continue to follow-up with Dr. Gao. Left renal pelvis mass. She is going to have cystoscopy by Dr. Anderson Kingsley. Atrial fibrillation. Patient is on Xarelto. ? TOBACCO COUNSELING She is not a tobacco user. 07/04/2020 Rodolfo Hernandez MD FIRM ADMINISTRATOR documented in this encounter Plan of Treatment Not on file documented as of this encounter Visit Diagnoses Diagnosis Chronic anemia- Primary Anemia, unspecified documented in this encounter Care Teams Special Education Teachers Relationship Specialty Start Date End Date Jason Isaacs MD [address] [place] [address] PCP - General Internal Medicine 06/25/20 documented as of this encounter
--- OUTSIDE RECORDS SUMMARY | 2024-04-18 11:04 | XMS_ITS | Encounter Summary ---
Author Organization [facility] SAUNDRA Munoz [facility] Address [address] [place] [address] Care Team Providers Care Environmental Inspector Name Role Phone Jason Isaacs MD Primary Care Provider [phone] Encounter Details Date Type Department Care Team (Late st Contact Info) Description 11/21/2020 Orders Only [facility] Oncology and Hematology - Leonardo [address] [facility] [address] [place] [address] Rodolfo Hernandez MD [address] [facility] [address] [place] [address] Chronic anemia Social History Tobacco [...] unspecified documented in this encounter Care Teams Environmental Inspector Relationship Specialty Start Date End Date Jason Isaacs MD [address] [place] [address] PCP - General Internal Medicine 06/25/20 documented as of this encounter
--- OUTSIDE RECORDS SUMMARY | 2024-04-18 11:04 | XMS_ITS | Encounter Summary ---
Author Organization [facility] SAUNDRA Munoz [facility] Address [address] [place] [address] Care Team Providers Care Coil Binder Name Role Phone Jason Isaacs MD Primary Care Provider [phone] Encounter Details Date Type Department Care Team (Late st Contact Info) Description 06/02/2022 Orders Only [facility] Oncology and Hematology - Leonardo [address] [address] Chantell Morales Liver lesion Social [...] of this encounter Visit Diagnoses Diagnosis Liver lesion Other specified disorders of liver documented in this encounter Care Teams Coil Binder Relationship Specialty Start Date End Date Jason Isaacs MD [address] [place] [address] PCP - General Internal Medicine 06/25/20 documented as of this encounter
--- OUTSIDE RECORDS SUMMARY | 2024-04-18 11:04 | XMS_ITS | Encounter Summary ---
Author Organization [facility] Address [address] Rojasn: Epic Prelude ADT [place] [address] Care Team Providers Care Renal Nurse Name Role Phone Jason Isaacs MD Primary Care Provider [phone] Encounter Details Date Type Department Care Team (Latest Contact Info) Description 06/25/2020 Travel Social History Tobacco Use Types Packs/Day [...] COVID-19? No / Unsure 06/25/2020 12:30 PM COACH documented as of this encounter Plan of Treatment Not on file documented as of this encounter Visit Diagnoses Not on filedocumented in this encounter Care Teams Renal Nurse Relationship Specialty Start Date End Date Jason Isaacs MD [address] [place] [address] PCP - General Internal Medicine 06/25/20 documented as of this encounter
--- OUTSIDE RECORDS SUMMARY | 2024-04-18 11:04 | XMS_ITS | Encounter Summary ---
Author Organization [facility] SAUNDRA Munoz [facility] Address [address] [place] [address] Care Team Providers Care Shop Foreman Name Role Phone Jason Isaacs MD Primary Care Provider [phone] Reason for Referral * CT Scan (Routine) - Closed Specialty Diagnoses / Procedures Referred By Contac t Referred To Contact Diagnoses Liver lesion Procedures CT ABDOMEN PELVIS WO CONTRAST Rodolfo Hernandez MD [address] [place] [address] [address] Referral ID Status Reason Start Date Expiration Date V isits Requested Visits Authorized [id number] Closed STL CTS 02/27/2022 03/30/2023 1 1 Reason for Visit * Reason Comments Follow Up Encounter Details Date Type Department Care Team (Late st Contact Info) Description 02/27/2022 2:00 PM CDT Office Visit [facility] Oncology and Hematology - Leonardo [address] [facility] [address] [place] [address] Rodolfo Hernandez MD [address] [place] [address] Liver lesion (Primary Dx) Social [...] PM CDT documented as of this encounter Last Filed Vital Signs Vital Sign Reading Time Taken Comments Blood Pressure 143/82 02/27/2022 1:59 PM CDT Pulse 90 02/27/2022 1:59 PM CDT Temperature 37.3 ??C (99.1 ??F) 02/27/2022 1:59 PM CD T Respiratory Rate 18 02/27/2022 1:59 PM CDT Oxygen Saturation 98% 02/27/2022 1:59 PM CDT Inhaled Oxygen Concentration - - Weight 66.1 kg (145 lb 12.8 oz) 02/27/2022 1:59 PM CDT Height - - Body Mass Index 22.84 12/31/2021 10:16 AM CDT documented in this encounter Progress Notes * Rodolfo Hernandez MD - 02/27/2022 6:55 PM CDT HEMATOLOGY / ONCOLOGY PROGRESS NOTE Patient Identification: Name: Chasidy Thomas Age: 76 y.o. Sex: female : 1945 DIAGNOSIS Liver lesion Multifactorial anemia. CURRENT TREATMENT Surveillance TREATMENT HISTORY Procrit 20,000 units started biweekly on July 04, 2020. SUBJECTIVE Patient came into the office for follow-up visit. She has intermittent abdominal discomfort. Deniesany nausea vomiting. She has lost 10 pound weight. No other new complaint. Review of system Constitutional: denies fevers, sweats, and pound weight loss with mild tiredness and fatigue HEENT: denies sinus congestion, [...] No lumps, bumps or rashes. 12 point view system was reviewed and as above Objective: [...] hemoglobin 13.1 WBC 8.2 platelet 185,000 CA 19-908 alpha-fetoprotein 10.3 CEA 1.0 Assessment: Plan: Patient Active Problem List Diagnosis Date Noted Anemia of chronic renal failure, stage 3 (moderate) 06/25/[address] Hep[address] lesions. Patient had CT abdomen pelvis done on January 21 that showed sigmoid diverticulitis with 1 to 1.5 cm hepatic lesions. Abdominal MRI done on February 15 showed focal steatosis in theliver. I have discussed this report with Dr. Galeana in radiology. He does not believe that there is any cancer in the liver or in pancreas. He recommended that we should repeat another CT chest without contrast in 3 months. I will order that. I have discussed this with patient and the daughter in detail. Multifactorial anemia. This is secondary to anemia of chronic kidney stage III disease as well as iron deficiency. Hemoglobin is stable. A. fib. Patient is on Xarelto. CKD stage III. She will continue to follow with Dr. Gao. TOBACCO COUNSELING She is not a tobacco user. 02/27/2022 Rodolfo Hernandez MD documented in this encounter Plan of Treatment Scheduled Orders Name Type Priority Associated Diagnoses Orde r Schedule CT ABDOMEN PELVIS WO CONTRAST Imaging Routine Liver lesion Expected: 05/30/2022, Expires: 02/27/2023 CBC WITH DIFFERENTIAL Lab Stat Liver lesion Expected: 05/22/2022, Expires: 02/27/2023 COMPREHENSIVE METABOLIC PANEL Lab Stat Liver lesion Expected: 05/22/2022, Expires: 02/27/2023 CANCER ANTIGEN 19-9 Lab Routine Liver lesion Expected: 05/22/2022, Expires: 02/27/2023 documented as of this encounter Visit Diagnoses Diagnosis Liver lesion- Primary Other specified disorders of liver documented in this encounter Care Teams Shop Foreman Relationship Specialty Start Date End Date Jason Isaacs MD [address] [place] [address] PCP - General Internal Medicine 06/25/20 documented as of this encounter
--- OUTSIDE RECORDS SUMMARY | 2024-04-18 11:04 | XMS_ITS | Encounter Summary ---
Author Organization [facility] SAUNDRA Munoz [facility] Address [address] [place] [address] Care Team Providers Care Stock Selector Name Role Phone Jason Isaacs MD Primary Care Provider [phone] Encounter Details Date Type Department Care Team (Late st Contact Info) Description 06/19/2021 Orders Only [facility] Oncology and Hematology - Leonardo [address] [address] Daysi Rodriguez Chronic anemia Social History Tobacco Use Types [...] unspecified documented in this encounter Care Teams Stock Selector Relationship Specialty Start Date End Date Jason Isaacs MD [address] [place] [address] PCP - General Internal Medicine 06/25/20 documented as of this encounter
--- OUTSIDE RECORDS SUMMARY | 2024-04-18 11:04 | XMS_ITS | Encounter Summary ---
Author Organization [facility] SAUNDRA Munoz [facility] Address [address] [place] [address] Care Team Providers Care Filter Helper Name Role Phone Jason Isaacs MD Primary Care Provider [phone] Reason for Visit * Reason Comments Follow Up 4 month f/u with lab s Encounter Details Date Type Department Care Team (Late st Contact Info) Description 06/26/2021 10:00 AM SOFTWARE APPLICATIONS ENGINEER Office Visit [facility] Oncology and Hematology - Leonardo [address] [facility] [address] [place] [address] Rodolfo Hernandez MD [address] [facility] [address] [place] [address] Chronic anemia (Primary Dx) Social [...] have Coronavirus / COVID-19? No / Unsure 06/26/2021 9:42 AM SOFTWARE APPLICATIONS ENGINEER documented as of this encounter Last Filed Vital Signs Vital Sign Reading Time Taken Comments Blood Pressure 156/81 06/26/2021 10:02 AM SOFTWARE APPLICATIONS ENGINEER 142/81 first bp Pulse 65 06/26/2021 10:02 AM SOFTWARE APPLICATIONS ENGINEER Temperature 36.6 ??C (97.8 ??F) 06/26/2021 1 0:02 AM SOFTWARE APPLICATIONS ENGINEER Respiratory Rate - - Oxygen Saturation 97% 06/26/2021 10: 02 AM SOFTWARE APPLICATIONS ENGINEER Inhaled Oxygen Concentration - - Weight 71.4 kg (157 lb 6.4 oz) 06/26/2021 10:02 AM SOFTWARE APPLICATIONS ENGINEER Height 172.7 cm (5' 8 ) 06/26/2021 10:0 2 AM SOFTWARE APPLICATIONS ENGINEER Body Mass Index 23.93 06/26/2021 10:02 AM SOFTWARE APPLICATIONS ENGINEER documented in this encounter Progress Notes * Rodolfo Hernandez MD - 06/26/2021 10:47 AM CST HEMATOLOGY / ONCOLOGY PROGRESS NOTE Patient Identification: Name: Chasidy Thomas Age: 75 y.o. Sex: female : 1945 DIAGNOSIS Multifactorial anemia. CURRENT TREATMENT TREATMENT HISTORY Procrit 20,000 units started biweekly on July 04, 2020. SUBJECTIVE Patient came into the office for follow-up visit. She is feeling much better and more stronger. Denies any bleeding and bruising. Weight and [...] lumps, bumps or rashes. 12 point view systems reviewed and as above Objective: Vital signs [...] June 18 showed creatinine 1.56 hemoglobin 13.3 Assessment: Plan: Patient Active Problem List Diagnosis Date Noted ??? Anemia of chronic renal failure, stage 3 (moderate) 06/25/2020 Multifactorial anemia. This is secondary to anemia of chronic kidney stage III disease as well as iron deficiency. Patient started Retacrit 20,000 units on July 04, 2020. Labs noted that showed normal hemoglobin of 13.3. She is feeling much better. She will continue iron but reduce the dose to once a day along with vitamin C daily. No need for Procrit. I will see her back in 6 months. Chronic kidney stage III disease. She will continue to follow with Dr. Gao. Liliana Gonzalez on Xarelto. TOBACCO COUNSELING She is not a tobacco user. 06/26/2021 Rodolfo Hernandez MD WARE APPLICATIONS ENGINEER documented in this encounter Plan of Treatment Scheduled Orders Name Type Priority Associated Diagnoses Orde r Schedule CBC WITH DIFFERENTIAL Lab Stat Chronic anemia Expected: 12/27/2021, Expires: 06/26/2022 documented as of this encounter Visit Diagnoses Diagnosis Chronic anemia- Primary Anemia, unspecified documented in this encounter Care Teams Filter Helper Relationship Specialty Start Date End Date Jason Isaacs MD [address] [place] [address] PCP - General Internal Medicine 06/25/20 documented as of this encounter
--- OUTSIDE RECORDS SUMMARY | 2024-04-18 11:04 | XMS_ITS | Encounter Summary ---
Author Organization [facility] SAUNDRA Munoz [facility] Address [address] [place] [address] Care Team Providers Care Movie Operator Name Role Phone Jason Isaacs MD Primary Care Provider [phone] Encounter Details Date Type Department Care Team (Late st Contact Info) Description 07/02/2020 Orders Only [facility] Oncology and Hematology - Leonardo [address] [facility] [address] [place] [address] Rodolfo Hernandez MD [address] [facility] [address] [place] [address] Chronic anemia Social History Tobacco [...] COVID-19? No / Unsure 07/04/2020 8:27 AM EXTRUSION DIE COORDINATOR documented as of this encounter Plan of Treatment Not on file documented as of this encounter Visit Diagnoses Diagnosis Chronic anemia Anemia, unspecified documented in this encounter Care Teams Movie Operator Relationship Specialty Start Date End Date Jason Isaacs MD [address] [place] [address] PCP - General Internal Medicine 06/25/20 documented as of this encounter
--- OUTSIDE RECORDS SUMMARY | 2024-04-18 11:04 | XMS_ITS | Encounter Summary ---
Author Organization [facility] Address [address] [place] [address] Care Team Providers Care Rn Bsn Name Role Phone Jason Isaacs MD Primary Care Provider [phone] Encounter Details Date Type Department Care Team [...] on filedocumented in this encounter Care Teams Rn Bsn Relationship Specialty Start Date End Date Jason Isaacs MD [address] [place] [address] PCP - General Internal Medicine 06/25/20 documented as of this encounter
--- OUTSIDE RECORDS SUMMARY | 2024-04-18 11:04 | XMS_ITS | Encounter Summary ---
Author Organization [facility] Address [address] Rojasn: Epic Prelude ADT [place] [address] Care Team Providers Care Silk Folder Name Role Phone Jason Isaacs MD Primary Care Provider [phone] Encounter Details Date Type Department Care Team (Latest Contact Info) Description 06/26/2021 Travel Social History Tobacco Use Types Packs/Day [...] COVID-19? No / Unsure 06/26/2021 9:42 AM WEAVING INSTRUCTOR documented as of this encounter Plan of Treatment Not on file documented as of this encounter Visit Diagnoses Not on filedocumented in this encounter Care Teams Silk Folder Relationship Specialty Start Date End Date Jason Isaacs MD [address] [place] [address] PCP - General Internal Medicine 06/25/20 documented as of this encounter
== END 2024-04-11 09:43 | disposition home or self-care (01) ==
PROVIDERS: PCP Internal Medicine; Visit Provider Nurse Practitioner Family
DX: M79.89 Other specified soft tissue disorders (principal); D72.829 Elevated white blood cell count, unspecified; R94.4 Abnormal results of kidney function studies
CPT/HCPCS: 36415; 80053; 81001; 85025

== ENCOUNTER 2024-04-18 12:41 | Outpatient (CLI) | payer MEDICARE, SELFPAY ==
[2024-04-18 12:54] LABS: Hematocrit 37.1 % (35.0-42.0); Mean Corpuscular HGB Conc 32.3 g/dL (32-36); Mean Corpuscular Hemoglobin 31.8 pg (27.0-31.0); Mean Corpuscular Volume 98.4 fL (78.0-102.0); Platelet Count Result 251 K/mm3 (150-420); Red Blood Count 3.77 M/mm3 (4.20-5.40); White Blood Count 15.8 K/mm3 (4.8-10.8)
[2024-04-18 13:50] LABS: Alanine Aminotransferase 34 U/L (14-59); Albumin Level 3.3 g/dL (3.4-5.0); Alkaline Phosphatase 110 U/L (46-116); Anion Gap 12 mmol/L (4-12); Aspartate Amino Transferase 23 U/L (15-37); Bilirubin Direct 0.2 mg/dL (0-0.2); Bilirubin,Total 0.6 mg/dL (0.00-1.00); Blood Urea Nitrogen 25 mg/dL (7-18); Calcium 9.9 mg/dL (8.5-10.1); Carbon Dioxide 25 mmol/L (21-32); Chloride 105 mmol/L (98-108); Estimated Glomerular Filt Rate 30; Glucose 86 mg/dL (70-99); Osmolality Calculated 297 mOsm/kg (285-295); Potassium 3.8 mmol/L (3.5-5.1); Sodium 142 mmol/L (136-145); Total Protein 5.9 g/dL (6.4-8.2)
== END 2024-04-18 12:42 | disposition home or self-care (01) ==
LOC: CHSLAB 12:43
PROVIDERS: PCP Internal Medicine; Visit Provider Nurse Practitioner Family
DX: M79.89 Other specified soft tissue disorders (principal); D72.829 Elevated white blood cell count, unspecified; R74.8 Abnormal levels of other serum enzymes
CPT/HCPCS: 36415; 80053; 82248; 85027

== ENCOUNTER 2024-05-05 08:50 | Outpatient (CLI) | payer MEDICARE, SELFPAY ==
[2024-05-05 09:34] LABS: Hemoglobin 11.4 g/dL (11.7-13.8); Mean Corpuscular HGB Conc 30.8 g/dL (32-36); Mean Corpuscular Hemoglobin 31.1 pg (27.0-31.0); Mean Corpuscular Volume 100.8 fL (78.0-102.0); Mean Platelet Volume 10.8 fl (9.2-11.8); Platelet Count Result 199 K/mm3 (150-420); Red Blood Count 3.67 M/mm3 (4.20-5.40); Red Cell Distribution Width 14.3 % (11.6-14.4); White Blood Count 9.8 K/mm3 (4.8-10.8)
[2024-05-05 10:17] LABS: Alanine Aminotransferase 34 U/L (14-59); Albumin Level 3.5 g/dL (3.4-5.0); Alkaline Phosphatase 88 U/L (46-116); Anion Gap 11 mmol/L (4-12); Aspartate Amino Transferase 24 U/L (15-37); Bilirubin,Total 0.6 mg/dL (0.00-1.00); Blood Urea Nitrogen 20 mg/dL (7-18); Calcium 9.4 mg/dL (8.5-10.1); Carbon Dioxide 26 mmol/L (21-32); Chloride 106 mmol/L (98-108); Estimated Glomerular Filt Rate 32; Glucose 81 mg/dL (70-99); Osmolality Calculated 297 mOsm/kg (285-295); Potassium 3.4 mmol/L (3.5-5.1); Sodium 143 mmol/L (136-145)
[2024-05-05 10:23] LABS: Band Neutrophils Percent 0 % (0-6); Basophils Absolute Manual 0.09 K/mm3 (0-0.1); Basophils Percent Manual 1 % (0-1); Eosinophils Absolute Manual 0.39 K/mm3 (0.02-0.50); Eosinophils Percent Manual 4 % (1-6); Lymphocytes Absolute Manual 2.35 K/mm3 (1.1-4.5); Lymphocytes Percent Manual 24 % (18-44); Monocytes Absolute Manual 0.68 K/mm3 (0.1-0.90); Monocytes Percent Manual 7 % (3-9); Myelocytes Percent 3 %; Neutrophils Absolute Manual 5.97 K/mm3 (1.7-7.2); Neutrophils Percent Manual 61 % (46-73); Platelet Estimate Adequate (Adequate); Total Cells Counted 100
[2024-05-05 15:05] LABS: Ferritin 405 ng/mL (8-252); Folic Acid 11.1 ng/mL (8.6->20); Iron 115 ug/dL (50-170); Percent Iron Saturation 39 % (12-57); Vitamin B12 602 pg/mL (193-986)
== END 2024-05-05 08:51 | disposition home or self-care (01) ==
LOC: CHSLAB 08:52
PROVIDERS: PCP Internal Medicine; Visit Provider Nurse Practitioner Family
DX: E87.6 Hypokalemia (principal); I10 Essential (primary) hypertension; R74.01 Elevation of levels of liver transaminase levels
CPT/HCPCS: 36415; 80053; 82607; 82728; 82746; 83540; 83550; 85025

== ENCOUNTER 2024-06-22 08:02 | Outpatient (CLI) | payer MEDICARE, SELFPAY ==
--- OUTSIDE RECORDS SUMMARY | 2024-06-22 08:11 | XMS_ITS | Clinical Summary ---
Author Organization [facility] [address] Address [address] [place] [address] Care Team Providers Care Label Press Operator Name Role Phone Jason Isaacs MD Primary Care Provider [phone] Allergies Active Allergy Reactions Criticality Noted Date [...] every evening 4 Active cholecalciferol (VITAMIN D-3) 82415 unit capsule Take 1 capsule (10,000 Units [...] on file Legal Sex Female 12:00 AM CALL CENTER REPRESENTATIVE Gender Identity Not on file Sexual Orientation Not on file Obstetrics History Last Filed Vital Signs Vital Sign Reading Time Taken Comments Blood Pressure 110/60 12/31/2023 9:16 AM CDT Pulse 64 12/31/2023 9:16 AM CDT Temperature 36.8 C (98.2 F) 06/12/2020 11:58 AM CALL CENTER REPRESENTATIVE Respiratory Rate - - Oxygen Saturation 97% [...] Pneumococcal vaccine 65+ (2 of 2 - PPSV23) 12/26/2018 12/26/2017 Influenza Vaccine (#1) 2023 2, 02/18/2021, 02/09/2020, Additional history exists Insurance MEDICARE [facility] MEDICARE [facility] Care Teams Label Press Operator Relationship Specialty Start Date End Date Jason Isaacs MD PCP - General Internal Medicine 07/13/18
--- OUTSIDE RECORDS SUMMARY | 2024-06-22 08:11 | XMS_ITS | Clinical Summary ---
Author Organization [facility] Address [address] [place] [address] Phone Care Team Providers Care Bakery Team Member Name Role Phone Jason Isaacs MD Primary Care Provider [phone] Allergies Active Allergy Reactions Criticality Noted Date [...] Comments Blood Pressure 122/60 04/02/2022 10:22 AM IT CONSULTING MANAGER Pulse 72 04/02/2022 10:22 AM IT CONSULTING MANAGER Temperature 35.3 C (95.5 F) 04/02/2022 10:22 AM IT CONSULTING MANAGER Respiratory Rate - - Oxygen Saturation - - Inhaled Oxygen Concentration - - Weight 66.2 kg (146 lb) 04/02/2022 10:22 AM IT CONSULTING MANAGER Height 162.6 cm (5' 4 ) 04/02/2022 10:22 AM IT CONSULTING MANAGER Body Mass Index 25.06 04/02/2022 10:22 AM IT CONSULTING MANAGER Plan of Treatment Health Maintenance Due Date Last Done Comments Pneumococcal PPSV23/PCV13 65 + Years / High and Highest Risk (1 of 4 - PCV) 1951 Influenza Vaccine (#1) 2023 2, 02/18/2021, 02/09/2020 Care Teams Bakery Team Member Relationship Specialty Start Date End Date Jason Isaacs MD [address] [place] [address] PCP - General Internal Medicine 10/10/19
--- OUTSIDE RECORDS SUMMARY | 2024-06-22 08:11 | XMS_ITS | Referral Summary ---
Author Organization [facility] [address] Address [address] [place] [address] Care Team Providers Care Historic Clothing And Costume Maker Name Role Phone Jason Isaacs MD Primary Care Provider [phone] Allergies Active Allergy Reactions Criticality Noted Date [...] every evening 4 Active cholecalciferol (VITAMIN D-3) 39361 unit capsule Take 1 capsule (10,000 Units [...] on file Legal Sex Female 12:00 AM PET SUPPLIES SALESPERSON Gender Identity Not on file Sexual Orientation Not on file Last Filed Vital Signs Vital Sign Reading Time Taken Comments Blood Pressure 110/60 12/31/2023 9:16 AM CDT Pulse 64 12/31/2023 9:16 AM CDT Temperature 36.8 C (98.2 F) 06/12/2020 11:58 AM PET SUPPLIES SALESPERSON Respiratory Rate - - Oxygen Saturation 97% 12/31/2023 9:16 AM CDT Inhaled Oxygen Concentration - - Weight 65.8 kg (145 lb) 12/31/2023 9:16 AM CDT Height 175.3 cm (5' 9 ) 12/31/2023 9:16 AM CDT Body Mass Index 21.41 12/31/2023 9:16 AM CDT Plan of Treatment Not on file Insurance MEDICARE [employer] [facility] MEDICARE [facility] Care Teams Historic Clothing And Costume Maker Relationship Specialty Start Date End Date Jason Isaacs MD PCP - General Internal Medicine 07/13/18
--- OUTSIDE RECORDS SUMMARY | 2024-06-22 08:11 | XMS_ITS | Clinical Summary ---
Author Organization [facility] Lizzeth Yuan Address [address] [place] [address] Care Team Providers Care Desk Maker Name Role Phone Jason Isaacs MD Primary Care Provider [phone] Allergies Active Allergy Reactions Criticality Noted Date Comments Oxycodone Dizziness,Hypotensio n,Ot her (See Comments),Nausea and Vomiting High 10/18/2019 Other reaction(s): Nausea only Sulfadiazine Nausea and Vomiting High 06/25/2020 Sulfasalazine Other (See Comments),Nausea and Vomiting Low 01/12/2018 Medications calcium crb,cit/D3/min 34/tameka (CITRACAL PLUS BONE DENSITY ORAL) Citracal Plus Bone Density once a day Active ALPRAZolam (XANAX) 0.5 mg tablet alprazolam 0.5 mg tablet TAKE 1 TABLET BY MOUTH EVERY DAY AT BEDTIME 8 Active atorvastatin (LIPITOR) 20 mg tablet atorvastatin 20 mg tablet 8 Active leflunomide (ARAVA) 10 mg tablet leflunomide 10 mg tablet 8 Active magnesium oxide (MAG-OX) 400 mg (241.3 mg magnesium) tablet magnesium oxide 400 mg (241.3 mg magnesium) tablet TAKE 1 TABLET BY MOUTH TWICE A DAY 9 Active metoprolol succinate (TOPROL XL) 25 mg Extended Release 24 hour tablet Take 12.5 mg by mouth. 1 Active omeprazole (PriLOSEC) 40 mg Capsule, Delayed Release(E.C.) omeprazole 40 mg capsule,delayed release 0 Active predniSONE (DELTASONE) 5 mg tablet prednisone 5 mg tablet 0 Active rivaroxaban (Xarelto) 15 mg Tablet Xarelto 15 mg tablet 0 Active ferrous sulfate 325 mg (65 mg iron) Tablet, Delayed Release (E.C.) Take by mouth. Active ascorbic acid, vitamin C, (VITAMIN C) 500 mg tablet Active flecainide (TAMBOCOR) 50 mg Tablet TAKE 1 TABLET BY MOUTH EVERY 12 HOURS FOR 30 DAYS 1 Active spironolactone (ALDACTONE) 25 mg tablet spironolactone 25 mg tablet TAKE 2 TABLETS BY MOUTH EVERY DAY Active Calcium Cmb 2-D3-Min Ald56-Cjq (Citracal Plus Bone Density) 300-200-13.5 mg-unit-mg Tablet Citracal Plus Bone Density once a day 0 Active polycarbophil calcium (FIBERCON) 625 mg tablet [...] = 0.6 oz pur e alcohol) occasional Comments No Sex and Gender Information Value Date Recorded Sex Assigned at Not on file Legal Sex Female 1:47 PM LIQUID YEAST SUPERVISOR Gender Identity Not on file Sexual Orientation Not on file Last Filed Vital Signs Vital Sign Reading Time Taken Comments Blood Pressure 169/79 05/13/2023 9:11 AM LIQUID YEAST SUPERVISOR Pulse 79 05/13/2023 9:08 AM LIQUID YEAST SUPERVISOR Temperature 36 C (96.8 F) 05/13/2023 9:08 AM LIQUID YEAST SUPERVISOR Respiratory Rate 10 05/13/2023 9:08 AM LIQUID YEAST SUPERVISOR Oxygen Saturation 96% 05/13/2023 9:08 AM LIQUID YEAST SUPERVISOR Inhaled Oxygen Concentration - - Weight 68.5 kg (151 lb) 05/13/2023 9:08 AM LIQUID YEAST SUPERVISOR Height 170.2 cm (5' 7 ) 12/31/2021 10:16 AM CDT Body Mass Index 23.65 12/31/2021 10:16 AM CDT Plan of Treatment Health Maintenance Due Date Last Done Comments DTAP/TDAP/TD VACCINES (1 - Tdap) 08[birth year]19/1964 PNEUMOCOCCAL VACCINE 65+ YEA RS (1 of 1 - PCV) 1994 12/26/2017 ZOSTER VACCINE (1 of 2) 1994 RSV VACCINE (60+ or ) (1 - 1-dose 75+ series) 08/19/2019 INFLUENZA VACCINE (#1) 2023 2, 02/18/2021, 02/09/2020 OSTEOPOROSIS SCREENING Completed 10/15/2018 COLORECTAL SCREENING Discontinued 04/25/2022, 11/11/19 18 Colorectal Cancer Screening Discontinued FIT-DNA Q 3 years Discontinued FIT/FOBT Q 1 year Discontinued Flex Sig/CT Colonography Q 5 years Discontinued [facility] Care Teams Desk Maker Relationship Specialty Start Date End Date Jason Isaacs MD [address] [place] [address] PCP - General Internal Medicine 06/25/20
[2024-06-22 08:37] LABS: Hematocrit 35.6 % (35.0-42.0); Mean Corpuscular HGB Conc 30.9 g/dL (32-36); Mean Corpuscular Hemoglobin 31.4 pg (27.0-31.0); Mean Corpuscular Volume 101.7 fL (78.0-102.0); Mean Platelet Volume 11.2 fl (9.2-11.8); Platelet Count Result 180 K/mm3 (150-420); Red Cell Distribution Width 13.8 % (11.6-14.4); White Blood Count 8.7 K/mm3 (4.8-10.8)
[2024-06-22 09:35] LABS: Alanine Aminotransferase 23 U/L (14-59); Albumin Level 3.5 g/dL (3.4-5.0); Alkaline Phosphatase 74 U/L (46-116); Anion Gap 10 mmol/L (4-12); Aspartate Amino Transferase 18 U/L (15-37); Bilirubin,Total 0.5 mg/dL (0.00-1.00); Blood Urea Nitrogen 24 mg/dL (7-18); Calcium 9.6 mg/dL (8.5-10.1); Carbon Dioxide 29 mmol/L (21-32); Chloride 106 mmol/L (98-108); Cholesterol 177 mg/dL (0-200); Estimated Glomerular Filt Rate 32; Glucose 78 mg/dL (70-99); HDL Direct 82 mg/dL (40-60); LDL Cholesterol Calculated 77 mg/dL (<130); Osmolality Calculated 303 mOsm/kg (285-295); Phosphorus 3.1 mg/dL (2.6-4.7); Potassium 3.8 mmol/L (3.5-5.1); Sodium 145 mmol/L (136-145); Thyroid Stimulating Hormone 2.75 uIU/mL (0.36-3.74); Triglycerides 92 mg/dL (0-150)
[2024-06-22 12:08] LABS: Creatinine Urine 51.53 mg/dL (40-278); Total Protein Urine Random < 7.0 mg/dL (0.0-11.9); Ur Ttl Prot Creatinine Ratio 0.14 mg/mg (0-0.20)
[2024-06-23 14:25] LABS: Add Urine Microscopic? YES; Appearance Urine Clear (Clear); Bilirubin Urine Negative (Negative); Blood Urine Negative (Negative); Color Urine Light Yellow (Yellow); Glucose Urine UA Negative (Negative); Ketones Urine Negative (Negative); Leukocyte Esterase Ur Trace (Negative); Nitrate Urine Negative (Negative); Protein Urine Negative (Negative); Specific Grav Ur <= 1.005 (1.010-1.020); Urobilinogen Urine 0.2 mg/dL (0.2-1.0); pH Urine 5.5 (5.0-8.0)
[2024-06-23 14:31] LABS: RBC Urine None seen /hpf (0-2); Squamous Epithelial Cell Urine Rare /hpf (Few); WBC Urine None seen /hpf (0-3)
[2024-06-23 14:32] LABS: Bacteria Urine Trace /hpf
[2024-06-24 14:08] LABS: Parathyroid Intact 53 pg/mL (16-77)
== END 2024-06-22 08:03 | disposition home or self-care (01) ==
PROVIDERS: PCP Internal Medicine; Visit Provider Internal Medicine Nephrology
DX: N18.32 Chronic kidney disease, stage 3b (principal); N18.31 Chronic kidney disease, stage 3a; D63.1 Anemia in chronic kidney disease; I12.9 Hypertensive chronic kidney disease with stage 1 through stage 4 chronic kidney disease, or unspecified chronic kidney disease
CPT/HCPCS: 36415; 80053; 80061; 81001; 82570; 83970; 84100; 84156; 84439; 84443; 85027

== ENCOUNTER 2024-07-07 14:23 | Outpatient (CLI) | payer MEDICARE, SELFPAY ==
--- OUTSIDE RECORDS SUMMARY | 2024-07-07 16:16 | XMS_ITS | Clinical Summary ---
Author Organization [facility] [address] Address [address] [place] [address] Care Team Providers Care Manager Hotel Name Role Phone Jason Isaacs MD Primary Care Provider [phone] Allergies Active Allergy Reactions Criticality Noted Date [...] every evening 4 Active cholecalciferol (VITAMIN D-3) 43644 unit capsule Take 1 capsule (10,000 Units [...] renal impairment 01/12/2020 PAF (paroxysmal atrial fibrillation) 09/04/2017 Essential hypertension 09/04/2017 Rheumatoid arthritis 09/04/2017 [...] on file Legal Sex Female 12:00 AM TESTING AND REGULATING CHIEF Gender Identity Not on file Sexual Orientation Not on file Obstetrics History Last Filed Vital Signs Vital Sign Reading Time Taken Comments Blood Pressure 110/60 12/31/2023 9:16 AM CDT Pulse 64 12/31/2023 9:16 AM CDT Temperature 36.8 C (98.2 F) 06/12/2020 11:58 AM TESTING AND REGULATING CHIEF Respiratory Rate - - Oxygen Saturation 97% [...] 02/09/2020, Additional history exists Insurance [facility]ARE [facility]ICARE [facility] Care Teams Manager Hotel Relationship Specialty Start Date End Date Jason Isaacs MD PCP - General Internal Medicine 07/13/18
--- OUTSIDE RECORDS SUMMARY | 2024-07-07 16:16 | XMS_ITS | Referral Summary ---
Author Organization [facility] [address] Address [address] [place] [address] Care Team Providers Care Rn Supplemental Name Role Phone Jason Isaacs MD Primary Care Provider [phone] Allergies Active Allergy Reactions Criticality Noted Date [...] every evening 4 Active cholecalciferol (VITAMIN D-3) 00262 unit capsule Take 1 capsule (10,000 Units [...] on file Legal Sex Female 12:00 AM FORMING OPERATOR Gender Identity Not on file Sexual Orientation Not on file Last Filed Vital Signs Vital Sign Reading Time Taken Comments Blood Pressure 110/60 12/31/2023 9:16 AM CDT Pulse 64 12/31/2023 9:16 AM CDT Temperature 36.8 C (98.2 F) 06/12/2020 11:58 AM FORMING OPERATOR Respiratory Rate - - Oxygen Saturation 97% 12/31/2023 9:16 AM CDT Inhaled Oxygen Concentration - - Weight 65.8 kg (145 lb) 12/31/2023 9:16 AM CDT Height 175.3 cm (5' 9 ) 12/31/2023 9:16 AM CDT Body Mass Index 21.41 12/31/2023 9:16 AM CDT Plan of Treatment Not on file Insurance MEDICARE [employer] [facility] MEDICARE [facility] Care Teams Rn Supplemental Relationship Specialty Start Date End Date Jason Isaacs MD PCP - General Internal Medicine 07/13/18
--- OUTSIDE RECORDS SUMMARY | 2024-07-07 16:17 | XMS_ITS | Clinical Summary ---
Author Organization [facility] Lizzeth Yuan Address [address] [place] [address] Care Team Providers Care Mannequin Maker Name Role Phone Jason Isaacs MD Primary Care Provider [phone] Allergies Active Allergy Reactions Criticality Noted Date [...] MOUTH EVERY DAY Active Calcium Cmb 2-D3-Min Gps70-Ixb (Citracal Plus Bone Density) 300-200-13.5 mg-unit-mg Tablet [...] on file Legal Sex Female 1:47 PM MEDICAL PLANNER Gender Identity Not on file Sexual Orientation Not on file Last Filed Vital Signs Vital Sign Reading Time Taken Comments Blood Pressure 169/79 05/13/2023 9:11 AM MEDICAL PLANNER Pulse 79 05/13/2023 9:08 AM MEDICAL PLANNER Temperature 36 C (96.8 F) 05/13/2023 9:08 AM MEDICAL PLANNER Respiratory Rate 10 05/13/2023 9:08 AM MEDICAL PLANNER Oxygen Saturation 96% 05/13/2023 9:08 AM MEDICAL PLANNER Inhaled Oxygen Concentration - - Weight 68.5 kg (151 lb) 05/13/2023 9:08 AM MEDICAL PLANNER Height 170.2 cm (5' 7 ) 12/31/2021 10:16 AM CDT Body Mass Index 23.65 12/31/2021 10:16 AM CDT Plan of Treatment Health Maintenance Due Date Last Done Comments DTAP/TDAP/TD VACCINES (1 - Tdap) 08/19/1963 PNEUMOCOCCAL VACCINE 50+ YEA RS (1 of 1 - PCV) [...] Discontinued [facility] Care Teams Mannequin Maker Relationship Specialty Start Date End Date Jason Isaacs MD [address] [place] [address] PCP - General Internal Medicine 06/25/20
--- OUTSIDE RECORDS SUMMARY | 2024-07-07 16:17 | XMS_ITS | Clinical Summary ---
Author Organization [facility] Address [address] [place] [address] Phone Care Team Providers Care Clothing Pattern Preparer Name Role Phone Jason Isaacs MD Primary [...] Comments Blood Pressure 122/60 04/02/2022 10:22 AM FOLDER OPERATOR Pulse 72 04/02/2022 10:22 AM FOLDER OPERATOR Temperature 35.3 C (95.5 F) 04/02/2022 10:22 AM FOLDER OPERATOR Respiratory Rate - - Oxygen Saturation - - Inhaled Oxygen Concentration - - Weight 66.2 kg (146 lb) 04/02/2022 10:22 AM FOLDER OPERATOR Height 162.6 cm (5' 4 ) 04/02/2022 10:22 AM FOLDER OPERATOR Body Mass Index 25.06 04/02/2022 10:22 AM FOLDER OPERATOR Plan of Treatment Health Maintenance Due Date Last Done Comments Pneumococcal PPSV23/PCV13 65 + Years / High and Highest Risk (1 of 4 - PCV) 1951 Influenza Vaccine (#1) 2023 2, 02/18/2021, 02/09/2020 Care Teams Clothing Pattern Preparer Relationship Specialty Start Date End Date Jason Isaacs MD [address] [place] [address] PCP - General Internal Medicine 10/10/19
== END 2024-07-07 14:24 | disposition home or self-care (01) ==
LOC: CHSLAB 14:26
PROVIDERS: PCP Internal Medicine; Visit Provider Specialist
DX: C44.42 Squamous cell carcinoma of skin of scalp and neck (principal)
CPT/HCPCS: 88305

== ENCOUNTER 2024-07-18 09:28 | Outpatient (CLI) | payer MEDICARE, SELFPAY ==
[2024-07-18 10:27] LABS: Anion Gap 11 mmol/L (4-12); Blood Urea Nitrogen 34 mg/dL (7-18); Calcium 9.9 mg/dL (8.5-10.1); Carbon Dioxide 29 mmol/L (21-32); Chloride 103 mmol/L (98-108); Estimated Glomerular Filt Rate 26; Glucose 85 mg/dL (70-99); Osmolality Calculated 302 mOsm/kg (285-295); Potassium 3.4 mmol/L (3.5-5.1); Sodium 143 mmol/L (136-145)
--- OUTSIDE RECORDS SUMMARY | 2024-07-18 10:31 | XMS_ITS | Clinical Summary ---
Author Organization [facility] Address [address] [place] [address] Phone Care Team Providers Care Auto Body Service Mechanic Name Role Phone Jason Isaacs MD Primary Care Provider [phone] Allergies Active Allergy Reactions Criticality Noted Date [...] Comments Blood Pressure 122/60 04/02/2022 10:22 AM SQUIRREL MAN Pulse 72 04/02/2022 10:22 AM SQUIRREL MAN Temperature 35.3 C (95.5 F) 04/02/2022 10:22 AM SQUIRREL MAN Respiratory Rate - - Oxygen Saturation - - Inhaled Oxygen Concentration - - Weight 66.2 kg (146 lb) 04/02/2022 10:22 AM SQUIRREL MAN Height 162.6 cm (5' 4 ) 04/02/2022 10:22 AM SQUIRREL MAN Body Mass Index 25.06 04/02/2022 10:22 AM SQUIRREL MAN Plan of Treatment Health Maintenance Due Date Last Done Comments Pneumococcal PPSV23/PCV13 65 + Years / High and Highest Risk (1 of 4 - PCV) 1951 Influenza Vaccine (#1) 2023 2, 02/18/2021, 02/09/2020 Care Teams Auto Body Service Mechanic Relationship Specialty Start Date End Date Jason Isaacs MD [address] [place] [address] PCP - General Internal Medicine 10/10/19
--- OUTSIDE RECORDS SUMMARY | 2024-07-18 10:31 | XMS_ITS | Clinical Summary ---
Author Organization [facility] [address] Address [address] [place] [address] Care Team Providers Care Salon/Spa Manager Name Role Phone Jason Isaacs MD Primary Care Provider [phone] Allergies Active Allergy Reactions Criticality Noted Date [...] every evening 4 Active cholecalciferol (VITAMIN D-3) 38080 unit capsule Take 1 capsule (10,000 Units [...] Legal Sex Female 12:00 AM DIRECTOR OF MARKETING OPERATIONS Gender Identity Not on file Sexual Orientation Not on file Obstetrics History Last Filed Vital Signs Vital Sign Reading Time Taken Comments Blood Pressure 110/60 12/31/2023 9:16 AM CDT Pulse 64 12/31/2023 9:16 AM CDT Temperature 36.8 C (98.2 F) 06/12/2020 11:58 AM DIRECTOR OF MARKETING OPERATIONS Respiratory Rate - - Oxygen Saturation 97% [...] [facility] Care Teams Salon/Spa Manager Relationship Specialty Start Date End Date Jason Isaacs MD PCP - General Internal Medicine 07/13/18
--- OUTSIDE RECORDS SUMMARY | 2024-07-18 10:31 | XMS_ITS | Clinical Summary ---
Author Organization [facility] Lizzeth [facility] Address [address] [place] [address] Care Team Providers Care Coil Winder Hand Name Role Phone Jason Isaacs MD Primary Care Provider [phone] Allergies Active Allergy Reactions Criticality Noted Date [...] MOUTH EVERY DAY Active Calcium Cmb 2-D3-Min Cxh42-Rze (Citracal Plus Bone Density) 300-200-13.5 mg-unit-mg Tablet [...] on file Legal Sex Female 1:47 PM BINITROTOLUENE OPERATOR Gender Identity Not on file Sexual Orientation Not on file Last Filed Vital Signs Vital Sign Reading Time Taken Comments Blood Pressure 169/79 05/13/2023 9:11 AM BINITROTOLUENE OPERATOR Pulse 79 05/13/2023 9:08 AM BINITROTOLUENE OPERATOR Temperature 36 C (96.8 F) 05/13/2023 9:08 AM BINITROTOLUENE OPERATOR Respiratory Rate 10 05/13/2023 9:08 AM BINITROTOLUENE OPERATOR Oxygen Saturation 96% 05/13/2023 9:08 AM BINITROTOLUENE OPERATOR Inhaled Oxygen Concentration - - Weight 68.5 kg (151 lb) 05/13/2023 9:08 AM BINITROTOLUENE OPERATOR Height 170.2 cm (5' 7 ) 12/31/2021 [...] Discontinued [facility] Care Teams Coil Winder Hand Relationship Specialty Start Date End Date Jason Isaacs MD [address] [place] [address] PCP - General Internal Medicine 06/25/20
--- OUTSIDE RECORDS SUMMARY | 2024-07-18 10:31 | XMS_ITS | Referral Summary ---
Author Organization [facility] [place] [place] [address] Address [address] [place] [address] Care Team Providers Care Pure Pak Machine Operator Name Role Phone Jason Isaacs MD Primary Care Provider [phone] Allergies Active Allergy Reactions Criticality Noted Date [...] every evening 4 Active cholecalciferol (VITAMIN D-3) 25418 unit capsule Take 1 capsule (10,000 Units [...] on file Legal Sex Female 12:00 AM TYPING SECRETARY Gender Identity Not on file Sexual Orientation Not on file Last Filed Vital Signs Vital Sign Reading Time Taken Comments Blood Pressure 110/60 12/31/2023 9:16 AM CDT Pulse 64 12/31/2023 9:16 AM CDT Temperature 36.8 C (98.2 F) 06/12/2020 11:58 AM TYPING SECRETARY Respiratory Rate - - Oxygen Saturation 97% 12/31/2023 9:16 AM CDT Inhaled Oxygen Concentration - - Weight 65.8 kg (145 lb) 12/31/2023 9:16 AM CDT Height 175.3 cm (5' 9 ) 12/31/2023 9:16 AM CDT Body Mass Index 21.41 12/31/2023 9:16 AM CDT Plan of Treatment Not on file Insurance MEDICARE [employer] [facility] Care Teams Pure Pak Machine Operator Relationship Specialty Start Date End Date Jason Isaacs MD PCP - General Internal Medicine 07/13/18
== END 2024-07-18 09:29 | disposition home or self-care (01) ==
LOC: CHSLAB 09:30
PROVIDERS: PCP Internal Medicine; Visit Provider Internal Medicine Nephrology
DX: N18.32 Chronic kidney disease, stage 3b (principal)
CPT/HCPCS: 36415; 80048

== ENCOUNTER 2024-07-30 09:25 | Outpatient (CLI) | payer MEDICARE, SELFPAY ==
--- OUTSIDE RECORDS SUMMARY | 2024-07-30 09:30 | XMS_ITS | Clinical Summary ---
Author Organization [facility] Lizzeth Yuan Address [address] [place] [address] Care Team Providers Care Payroll Auditor Name Role Phone Jason Isaacs MD Primary Care Provider [phone] Allergies Active Allergy Reactions Criticality Noted Date [...] MOUTH EVERY DAY Active Calcium Cmb 2-D3-Min [id number] (Citracal Plus Bone Density) 300-200-13.5 mg-unit-mg Tablet [...] on file Legal Sex Female 1:47 PM MANAGER NURSING Gender Identity Not on file Sexual Orientation Not on file Last Filed Vital Signs Vital Sign Reading Time Taken Comments Blood Pressure 169/79 05/13/2023 9:11 AM MANAGER NURSING Pulse 79 05/13/2023 9:08 AM MANAGER NURSING Temperature 36 C (96.8 F) 05/13/2023 9:08 AM MANAGER NURSING Respiratory Rate 10 05/13/2023 9:08 AM MANAGER NURSING Oxygen Saturation 96% 05/13/2023 9:08 AM MANAGER NURSING Inhaled Oxygen Concentration - - Weight 68.5 kg (151 lb) 05/13/2023 9:08 AM MANAGER NURSING Height 170.2 cm (5' 7 ) 12/31/2021 [...] Discontinued Insurance [facility] Care Teams Payroll Auditor Relationship Specialty Start Date End Date Jason Isaacs MD [address] [place] [address] PCP - General Internal Medicine 06/25/20
--- OUTSIDE RECORDS SUMMARY | 2024-07-30 09:30 | XMS_ITS | Encounter Summary ---
Author Organization [facility] Address [address] [place] [address] Care Team Providers Care Stud Setter Name Role Phone Jason Isaacs MD Primary Care Provider [phone] Reason for Referral * Cardiology (Routine) - Authorized Specialty Diagnoses / Procedures Referred By Contac t Referred To Contact Diagnoses PAF (paroxysmal atrial fibrillation) (HCC) Nonrheumatic mitral valve regurgitation Procedures Transthoracic Echo (TTE) Complete W Doppler/CF Edilberto Oscar MD [address] [place] [address] Phone: tel: fax: [facility] Cardiology [address] [place] [address] Phone: tel: fax: Referral ID Status Reason Start Date Expiration Date V isits Requested Visits Authorized [id number] Authorized 07/29/2024 08/28/2025 1 1 Reason for Visit * Reason Comments Follow-up 6 mo f/u Atrial Fibrillation Encounter Details Date Type Department Care Team (Latest Contact Info) Description 07/29/2024 11:15 AM CDT Office Visit [facility] Cardiology [address] [place] [phone] Edilberto Oscar MD [address] [place] [address] Encounter for monitoring flecainide therapy (Primary Dx); Essential hypertension; Chronic anticoagulation; Rheumatoid arthritis, involving unspecified site, unspecified whether rheumatoid factor present (HCC); PAF (paroxysmal atrial fibrillation) (HCC); Nonrheumatic mitral valve regurgitation Social History Tobacco Use Types Packs/Day Years Used Date Smoking Tobacco: Former Cigarettes Q uit: 07/13/1998 Smokeless Tobacco: Never Alcohol Use Standard Drinks/Week Comments Yes 2 (1 standard drink = 0.6 oz pur e alcohol) 2 beers a day Comments Unknown Sex and Gender Information Value Date Recorded Sex Assigned at Not on file Legal Sex Female 12:00 AM GEOTHERMAL PLANT MANAGER Gender Identity Not on file Sexual Orientation Not on file documented as of this encounter Last Filed Vital Signs Vital Sign Reading Time Taken Comments Blood Pressure 110/62 07/29/2024 11:07 AM CDT Pulse 72 07/29/2024 11:07 AM CDT Temperature - - Respiratory Rate - - Oxygen Saturation 99% 07/29/2024 11: 07 AM CDT Inhaled Oxygen Concentration - - Weight 65.7 kg (144 lb 12.8 oz) 025 11:07 AM CDT Height 175.3 cm (5' 9 ) 07/29/2024 11:0 7 AM CDT Body Mass Index 21.38 07/29/2024 11:07 AM CDT documented in this encounter Progress Notes * Edilberto Oscar MD - 07/29/2024 11:15 AM CDT Images from the original note were not included. [facility] DATE OF VISIT: 07/29/2024 CHIEF COMPLAINT Chief Complaint Patient presents with Follow-up 6 mo f/u Atrial Fibrillation HPI Chasidy Thomas is a 78 y.o. [...] the addition of carvedilol Office visit with WINDOWS SECURITY ANALYST 10/10/2019: She called the office a few weeks ago with complaint of some chestheaviness and ???feeling funny. Her home blood pressure machine had given an irregular heart beat indication. Dr. Oscar advised a 7 day inclusion specialist and stress testing. Since the week she [...] also. No pal pitations Follow-up note note 07/29/2024 she thinks that her shortness breath maybe a little worse. She had some worsening swelling which is now better with the addition of furosemide through Dr. Gao's office. No chest pain, syncope, presyncope, paroxysmal nocturnal [...] file. MEDICATIONS Medication List Accurate as of July 29, 2024 11:25 AM. If you have any questions, ask your nurse or doctor. CONTINUE taking these medications ALPRAZolam 0.5 mg tablet Commonly known as: XANAX ascorbic acid 500 mg tablet,chewable Commonly known as: VITAMIN C atorvastatin 20 mg tablet Commonly known as: LIPITOR calcium citrate-vitamin D3 200 mg-6.25 mcg (250 unit) tablet cholecalciferol 78674 unit capsule Commonly known as: VITAMIN D-3 ferrous sulfate 325 mg (65 mg of elemental iron) tablet flecainide 50 mg tablet Commonly known as: TAMBOCOR TAKE 1 TABLET BY MOUTH TWICE A DAY furosemide 20 mg tablet Commonly known as: LASIX leflunomide 10 mg tablet Commonly known as: [...] for environmental allergies. PHYSICAL EXAM Blood pressure 110/62, pulse 72, height 175.3 cm (5' 9 ), weight 65.7 kg (144 lb 12.8 oz), SpO2 99%. Body mass index is 21.38 kg/m??. Physical Exam Vitals reviewed. HENT: Head: [...] 06/24/2023Normal sinus rhythm, nonspecific ST abnormality. ECG EKG 07/29/2024: Normal sinus rhythm, nonspecific ST abnormality. Abnormal ECG Echo June 2017: EF 60-65% with mild left atrial enlargement. No significant valve problems. Myocardial Perfusion study 07/24/2017: EF 75% without infarction or ischemia. MPI 07/02/[address] changes. Global left ventricular function is normal. Left ventricular ejection fraction is 70 %. Myocardial perfusion imaging is probably normal. Recommend follow up with funeral prearrangement counselor. Echocardiogram 06/30/2023 Normal left ventricular systolic function. [...] Dr. Gao Encounter for monitoring flecainide therapy Periodic EKG is needed Nonrheumatic mitral regurgitation Moderate PLAN/RECOMMENDATIONS EKG today because of flecainide due Repeat 2D echocardiogram Doppler because of her mitral regurgitation worsening shortness breath. She is otherwise stable. Continue her furosemide for her edema. Continue metoprolol and flecainide because of her atrial fibrillation and low-dose Xarelto also because atrial fibrillation. Blood pressure is well-controlled with a combination of spironolactone, metoprolol in the should be continued also. Follow-up in 6 months or sooner as clinically indicated Edilberto Oscar MD, FACC documented in this encounter Plan of Treatment Scheduled Orders Name Type Priority Associated Diagnoses Orde r Schedule Transthoracic Echo (TTE) Complete W Doppler/CF Echocardiography Routine PAF (paroxysmal atrial fibrillation) (HCC) Nonrheumatic mitral valve regurgitation Expected: 07/29/2024, Expires: 07/29/2025 documented as of this encounter Visit Diagnoses Diagnosis Encounter for monitoring flecainide therapy- Primary Essential hypertension Unspecified essential hypertension Chronic anticoagulation Encounter for long-term (current) use of anticoagulants Rheumatoid arthritis, involving unspecified site, unspecified whether rheumatoid factor present (HCC) PAF (paroxysmal atrial fibrillation) (HCC) Atrial fibrillation Nonrheumatic mitral valve regurgitation documented in this encounter Historical Medications * This list may reflect changes made after this encounter. furosemide (LASIX) 20 mg tablet Take 1 tablet (20 mg total) by mouth every morning 07/05/2024 added in this encounter Care Teams Stud Setter Relationship Specialty Start Date End Date Jason Isaacs MD PCP - General Internal Medicine 07/13/18 documented as of this encounter
--- OUTSIDE RECORDS SUMMARY | 2024-07-30 09:30 | XMS_ITS | Referral Summary ---
Author Organization [facility] [address] [facility] [address] Address [address] [place] [address] Care Team Providers Care Tire Fabric Impregnating Range Tender Name Role Phone Jason Isaacs MD Primary Care Provider [phone] Encounters Date Type Department Care Team Description 07/29/2024 11:15 AM CDT Office Visit [facility] Cardiology [address] [facility] [address] [place] [address] Edilberto Oscar MD Encounter for monitoring flecainide therapy (Primary Dx); Essential hypertension; Chronic anticoagulation; Rheumatoid arthritis, involving unspecified site, unspecified whether rheumatoid factor present (HCC); PAF (paroxysmal atrial fibrillation) (HCC); Nonrheumatic mitral valve regurgitation from Last 3 Months Allergies Active Allergy Reactions Criticality Noted Date [...] every evening 4 Active cholecalciferol (VITAMIN D-3) 46573 unit capsule Take 1 capsule (10,000 Units total) by mouth daily Active metoprolol XL (TOPROL-XL) 25 mg extended release tabletIndication s:Atrial fibrillation, unspecified type (HCC) TAKE 1 TABLET BY MOUTH TWICE A DAY 180 tablet 3 4 Active furosemide (LASIX) 20 mg tablet Take 1 tablet (20 mg total) by mouth every morning 5 Active Active Problems Problem Noted Date Diagnosed Date Nonrheumatic mitral valve regurgitation 07/30/19 25 SOB (shortness of breath) 06/24/2023 Encounter for [...] on file Legal Sex Female 12:00 AM ELECTRICAL AND ELECTRONIC ASSEMBLER Gender Identity Not on file Sexual Orientation Not on file Last Filed Vital Signs Vital Sign Reading Time Taken Comments Blood Pressure 110/62 07/29/2024 11:07 AM CDT Pulse 72 07/29/2024 11:07 AM CDT Temperature 36.8 C (98.2 F) 06/12/2020 11:58 AM ELECTRICAL AND ELECTRONIC ASSEMBLER Respiratory Rate - - Oxygen Saturation 99% 07/29/2024 11: 07 AM CDT Inhaled Oxygen Concentration - - Weight 65.7 kg (144 lb 12.8 oz) 025 11:07 AM CDT Height 175.3 cm (5' 9 ) 07/29/2024 11:0 7 AM CDT Body Mass Index 21.38 07/29/2024 11:07 AM CDT Plan of Treatment Not on file Insurance MEDICARE [facility] MEDICARE SUPPLEMENT Care Teams Tire Fabric Impregnating Range Tender Relationship Specialty Start Date End Date Jason Isaacs MD PCP - General Internal Medicine 07/13/18
--- OUTSIDE RECORDS SUMMARY | 2024-07-30 09:30 | XMS_ITS | Clinical Summary ---
Author Organization [facility] Address [address] [place] [address] Phone Care Team Providers Care Chopper Gun Operator Name Role Phone Jason Isaacs MD Primary Care Provider [phone] Allergies Active Allergy Reactions Criticality Noted Date [...] Comments Blood Pressure 122/60 04/02/2022 10:22 AM NEWS CAMERAMAN Pulse 72 04/02/2022 10:22 AM NEWS CAMERAMAN Temperature 35.3 C (95.5 F) 04/02/2022 10:22 AM NEWS CAMERAMAN Respiratory Rate - - Oxygen Saturation - - Inhaled Oxygen Concentration - - Weight 66.2 kg (146 lb) 04/02/2022 10:22 AM NEWS CAMERAMAN Height 162.6 cm (5' 4 ) 04/02/2022 10:22 AM NEWS CAMERAMAN Body Mass Index 25.06 04/02/2022 10:22 AM NEWS CAMERAMAN Plan of Treatment Health Maintenance Due Date Last Done Comments Pneumococcal PPSV23/PCV13 65 + Years / High and Highest Risk (1 of 4 - PCV) 1951 Influenza Vaccine (Season Ended) 2024 02/18/2022, 02/18/2021, 02/09/2020 Care Teams Chopper Gun Operator Relationship Specialty Start Date End Date Jason Isaacs MD [address] [place] [address] PCP - General Internal Medicine 10/10/19
--- OUTSIDE RECORDS SUMMARY | 2024-07-30 09:30 | XMS_ITS | Clinical Summary ---
Author Organization [facility] [address] Address [address] [place] [address] Care Team Providers Care Customs Brokerage Manager Name Role Phone Jason Isaacs MD Primary Care Provider [phone] Allergies Active Allergy Reactions Criticality Noted Date [...] every evening 4 Active cholecalciferol (VITAMIN D-3) 79981 unit capsule Take 1 capsule (10,000 Units [...] 09/04/2017 Rheumatoid arthritis 09/04/2017 Chronic anticoagulation 09/04/2017 Encounters Date Type Department Care Team Description 07/29/2024 11:15 AM CDT Office Visit [facility] Cardiology [address] [place] [phone] Edilberto Oscar MD Encounter for monitoring flecainide therapy (Primary Dx); Essential hypertension; Chronic anticoagulation; Rheumatoid arthritis, involving unspecified site, unspecified whether rheumatoid factor present (HCC); PAF (paroxysmal atrial fibrillation) (HCC); Nonrheumatic mitral valve regurgitation from Last 3 Months Social History Tobacco Use Types Packs/Day Years [...] on file Legal Sex Female 12:00 AM VOLUNTEER RECRUITMENT COORDINATOR Gender Identity Not on file Sexual Orientation Not on file Obstetrics History Last Filed Vital Signs Vital Sign Reading Time Taken Comments Blood Pressure 110/62 07/29/2024 11:07 AM CDT Pulse 72 07/29/2024 11:07 AM CDT Temperature 36.8 C (98.2 F) 06/12/2020 11:58 AM VOLUNTEER RECRUITMENT COORDINATOR Respiratory Rate - - Oxygen Saturation 99% 07/29/2024 11: 07 AM CDT Inhaled Oxygen Concentration - - Weight 65.7 kg (144 lb 12.8 oz) 025 11:07 AM CDT Height 175.3 cm (5' 9 ) 07/29/2024 11:0 7 AM CDT Body Mass Index 21.38 07/29/2024 11:07 AM CDT Plan of Treatment Health Maintenance Due Date Last Done Comments Depression Screening 1944 Fall Risk Assessment 1945 Hepatitis C Screening 1945 Osteoporosis Screening-Bone Density Scan 1944 DTaP/Tdap/Td Vaccine (1 - Tdap) 08/19/1955 Hepatitis B Screening 1962 Zoster Vaccine (1 of 2) 1994 Well Visit 65+ 2009 Pneumococcal vaccine 65+ (2 of 2 - PPSV23) 12/26/2018 12/26/2017 Influenza Vaccine (Season Ended) 2024 02/18/2022, 02/18/2021, 02/09/2020, Additional history exists Insurance MEDICARE MEDICARE [facility] MEDICARE SUPPLEMENT Care Teams Customs Brokerage Manager Relationship Specialty Start Date End Date Jason Isaacs MD PCP - General Internal Medicine 07/13/18
[2024-07-30 10:31] LABS: Anion Gap 7 mmol/L (4-12); Blood Urea Nitrogen 33 mg/dL (7-18); Calcium 9.4 mg/dL (8.5-10.1); Carbon Dioxide 30 mmol/L (21-32); Chloride 107 mmol/L (98-108); Estimated Glomerular Filt Rate 27; Glucose 84 mg/dL (70-99); Osmolality Calculated 304 mOsm/kg (285-295); Potassium 3.5 mmol/L (3.5-5.1); Sodium 144 mmol/L (136-145)
== END 2024-07-30 09:26 | disposition home or self-care (01) ==
PROVIDERS: PCP Internal Medicine; Visit Provider Internal Medicine Nephrology
DX: N18.32 Chronic kidney disease, stage 3b (principal)
CPT/HCPCS: 36415; 80048

== ENCOUNTER 2024-10-01 08:20 | Outpatient (CLI) | payer MEDICARE, SELFPAY ==
--- NOTE | ~2024-10-01 | MR_ITS ---
MRI of the lumbar spine Clinical History: Back pain Technique: Axial T2-weighted images, and sagittal T1-weighted, T2-weighted, and T2 fat-sat images wer e acquired. Findings: No fracture identified. There is 4 mm retrolisthesis of L2 over L3. There is levoscoliosis of lumbar spine. No suspicious bone marrow signal reality seen. At L1-L2, there is minimal disc bulge. No spinal canal stenosis. Probable moderate right neural basil inal narrowing. Left neural foramen probably preserved. At L2-L3, there is severe degenerative disc narrowing. There is disc bulge with large disc extrusion extending inferiorly in the right paracentral region. There is mild thecal sac compression at this le ruslan. There is moderate to severe right neural foraminal narrowing. Left neural foramen preserved. Lar ge disc extrusion probably impinges the descending/exiting right L3-L4 level nerve root. At L3-L4, there is mild disc bulge and moderate facet arthropathy. There is mild central canal stenos is. Neural foramina are preserved at this level. At L4-L5, there is disc bulge with central disc extrusion and moderate facet arthropathy. There is se kenia spinal canal stenosis/thecal sac compression. There is moderate to advanced bilateral neural for aminal narrowing. At L5-S1, there is severe degenerative disc narrowing. There is diffuse disc bulge with mild to moder ate facet arthropathy. There is minimal central canal stenosis. There is severe left neural foraminal contrast. There is moderate right neural foraminal contrast. Paravertebral soft tissues are unremarkable. Impression: Large right paracentral disc extrusion at L2-L3 extending inferiorly, and impinging the descending ri ght L3-L4 level nerve root. Additional moderate degenerative spondylitic changes at L2-L3, as detailed above. Severe degenerative spondylitic changes at L4-L5 and L5-S1, as detailed above. Reviewed, dictated and finalized at location M. Impression: Large right paracentral disc extrusion at L2-L3 extending inferiorly, and impin ging the descending right L3-L4 level nerve root. Additional moderate degenerative spondylitic changes at L2-L3, as detailed abov e. Severe degenerative spondylitic changes at L4-L5 and L5-S1, as detailed above.
--- OUTSIDE RECORDS SUMMARY | 2024-10-01 08:23 | XMS_ITS | Referral Summary ---
Author Organization [place] [address] Address [address] [facility] [address] [place] [address] Care Team Providers Care Accountant Property Name Role Phone Jason Isaacs MD Primary Care Provider [phone] Encounters Date Type Department Care Team Description 09/09/2024 Results Follow-Up [facility] Medical [facility] Cardiology [address] [place] [address] [address] [place] [address] Jeane Gill MD Transthoracic Echo (TTE) Complete W Doppler/CF 09/02/2024 10:15 AM CDT Ancillary Procedure [facility] Medical Group Cardiology at [address] [place] [address] PAF (paroxysmal atrial fibrillation) (HCC); Nonrheumatic mitral valve regurgitation 07/29/2024 11:15 AM CDT Office Visit [facility] Cardiology [address] [place] [address] [address] [place] [address] Jeane Gill MD Encounter for monitoring flecainide therapy (Primary [...] every evening 4 Active cholecalciferol (VITAMIN D-3) 68392 unit capsule Take 1 capsule (10,000 Units [...] on file Legal Sex Female 12:00 AM MATERIALS COORDINATOR Gender Identity Not on file Sexual Orientation Not on file Last Filed Vital Signs Vital Sign Reading Time Taken Comments Blood Pressure 110/62 07/29/2024 11:07 AM CDT Pulse 72 07/29/2024 11:07 AM CDT Temperature 36.8 C (98.2 F) 06/12/2020 11:58 AM MATERIALS COORDINATOR Respiratory Rate - - Oxygen Saturation 99% 07/29/2024 11: 07 AM CDT Inhaled Oxygen Concentration - - Weight 65.7 kg (144 lb 12.8 oz) 025 11:07 AM CDT Height 175.3 cm (5' 9) 07/29/2024 11:0 7 AM CDT Body Mass Index 21.38 07/29/2024 11:07 AM CDT Plan of Treatment Not on file Procedures Procedure Name Priority Date/Time Associated Diagnosis Comments TRANSTHORACIC ECHO (TTE) COMPLETE W DOPPLER/CF WO CONTRAST Routine 09/02/2024 10:26 AM CDT PAF (paroxysmal atrial fibrillation) (HCC) Nonrheumatic mitral valve regurgitation ECG 12-LEAD Routine 07/29/2024 9:42 AM CDT Encounter for monitoring flecainide therapy from Last 3 Months Results * TRANSTHORACIC ECHO (TTE) COMPLETE W DOPPLER/CF WO CONTRAST (09/02/2024 10:26 AM CDT) Estimated EF 65 % CONS SCIMAGE EF Mod BP 60 % CONS SCIMAGE Anatomical Region Laterality Modality Ultrasound 09/02/2024 10:0 5 AM CDT Narrative 09/02/2024 1:10 PM CDT [facility] Medical [facility] Cardiology [address], [address], [place] [address] P:[phone] P:[phone] Echocardiographic Report Patient Name: CHASIDY VELEZ K : 1945 Study Date: 09/02/2024 10:05:40 AM Gender: F Tech: Location: [facility] Ref Provider: JEANE GILL Height(Cm): 175 BSA: 1.78 Weight(Kg): 65.3 Heart Rate: 70 BP: 110 / 62 Quality: Good Order Provider: JEANE GILL PROCEDURES: Echocardiographic Report: Transthoracic echocardiogram with complete 2D, M-Mode, and color Doppler examination. With Strain Analysis. INDICATIONS: I48.0 Paroxysmal atrial fibrillation and I34.0 Nonrheumatic mitral (valve) insufficiency. MEASUREMENTS: 2D/MM Value Range Doppler Value Range EF Mod BP 60 % [ 54 - 74 ] AV Mean PG 3 mmHg EF Teich MM 50 % [ 54 - 74 ] AV Peak Varinder 1.19 m/s [ 1.00 - 1.70 ] Estimated EF 65 % AV Peak PG 6 mmHg LVIDd 2D 5.69 cm [ 3.80 - 5.20 ] AV VTI 25.53 cm LVIDd MM 6.14 cm [ 3.80 - 5.20 ] LVOT Peak Varinder 0.96 m/s [ 0.70 - 1.10 ] LVIDs 2D 4.43 cm [ 2.20 - 3.50 ] LVOT VTI 22.07 cm LVIDs MM 4.56 cm [ 2.20 - 3.50 ] MV E Peak Varinder 0.94 m/s [ 0.60 - 1.30 ] LVPWd 2D 0.99 cm [ 0.60 - 0.90 ] MV A Peak Varinder 1.00 m/s [ 1.00 - 1.20 ] LVPWd MM 0.95 cm [ 0.60 - 0.90 ] MV Decel Time 182 msec [ 104 - 258 ] IVSd 2D 0.86 cm [ 0.60 - 0.90 ] PV Peak Varinder 0.82 m/s [ 0.40 - 0.80 ] IVSd MM 1.10 cm [ 0.60 - 0.90 ] TR Peak Varinder 2.43 m/s [ 1.00 - 2.80 ] LA Dimension MM 3.40 cm [ 2.70 - 3.80 ] TR Peak PG 24 mmHg AoR Diam MM 3.40 cm [ 2.70 - 3.70 ] RVSP 32.00 mmHg [ 10.00 - 36.00 ] LA Volume Index 26 cc/m2 [ 16 - 34 ] Lateral E` 0.07 m/s [ 0.10 - 0.15 ] ACS MM 1.44 cm E/E` 13 2D/MM Value Range Doppler Value Range - FINDINGS: Interpretation Site: Exam was interpreted at [facility]. Left Ventricle: Normal left ventricular size. Normal global left ventricular systolic function. Impaired diastolic relaxation Grade I. Ejection fraction is measured at 60 %. Ejection Fraction is visually estimated to be 65 %. Global Longitudinal Strain is -22 %. Right Ventricle: Normal right ventricular size. Left Atrium: There is mild enlargement of left atrium. Right Atrium: The right atrium is normal in size. Atrial Septum: Normal atrial septum. Mitral Valve: Normal appearance of the mitral valve. Mild to moderate mitral valve regurgitation. Aortic Valve: Normal appearance of the aortic valve. Tricuspid Valve: Normal appearance of the tricuspid valve. Estimated peak RVSP is 32 mmHg. Mild tricuspid regurgitation. Pulmonic Valve: Normal appearance of the pulmonic valve. Mild pulmonic regurgitation. Pericardium: Normal pericardium with no significant pericardial effusion. Aorta: Normal aortic root. IVC: Normal size and normal respiratory collapse consistent with normal right atrial pressure (<5 mmHg). Pulmonary Artery: Normal pulmonary artery size. CONCLUSIONS: Normal left ventricular size. Normal global left ventricular systolic function. Impaired diastolic relaxation Grade I. Ejection fraction is measured at 60 %. Ejection Fraction is visually estimated to be 65 %. Global Longitudinal Strain is -22 %. There is mild enlargement of left atrium. Normal appearance of the mitral valve. Mild to moderate mitral valve regurgitation. Normal appearance of the tricuspid valve. Estimated peak RVSP is 32 mmHg. Mild tricuspid regurgitation. Compared with 2023 estimated PA pressure is lower. No other difference. Electronically Signed By: Ron Chaudhry MD, [facility] 09/02/2024 1:09:54 PM CDT Procedure Note Ron Chaudhry MD - 09/02/2024 [facility] Cardiology [address], [address], [place] [address] P:[phone] P:[phone] Echocardiographic Report Patient Name: CHASIDY VELEZ K : 1945 Study Date: 09/02/2024 10:05:40 AM Gender: F Tech: Location: [facility] Ref Provider: JEANE GILL Height(Cm): 175 BSA: 1.78 Weight(Kg): 65.3 Heart Rate: 70 BP: 110 / 62 Quality: Good Order Provider: JEANE GILL PROCEDURES: Echocardiographic Report: Transthoracic echocardiogram with complete 2D, M-Mode, and color Dopplerexamination. With Strain Analysis. INDICATIONS: I48.0 Paroxysmal atrial fibrillation and I34.0 Nonrheumatic mitral (valve)insufficiency. MEASUREMENTS: 2D/MM Value Range Doppler ValueRange EF Mod BP 60 % [ 54 - 74 ] AV Mean PG 3mmHg EF Teich MM 50 % [ 54 - 74 ] AV Peak Varinder 1.19m/s [ 1.00 - 1.70 ] Estimated EF 65 % AV Peak PG 6mmHg LVIDd 2D 5.69 cm [ 3.80 - 5.20 ] AV VTI 25.53cm LVIDd MM 6.14 cm [ 3.80 - 5.20 ] LVOT Peak Varinder 0.96m/s [ 0.70 - 1.10 ] LVIDs 2D 4.43 cm [ 2.20 - 3.50 ] LVOT VTI 22.07cm LVIDs MM 4.56 cm [ 2.20 - 3.50 ] MV E Peak Varinder 0.94m/s [ 0.60 - 1.30 ] LVPWd 2D 0.99 cm [ 0.60 - 0.90 ] MV A Peak Varinder 1.00m/s [ 1.00 - 1.20 ] LVPWd MM 0.95 cm [ 0.60 - 0.90 ] MV Decel Time 182msec [ 104 - 258 ] IVSd 2D 0.86 cm [ 0.60 - 0.90 ] PV Peak Varinder 0.82m/s [ 0.40 - 0.80 ] IVSd MM 1.10 cm [ 0.60 - 0.90 ] TR Peak Varinder 2.43m/s [ 1.00 - 2.80 ] LA Dimension MM 3.40 cm [ 2.70 - 3.80 ] TR Peak PG 24mmHg AoR Diam MM 3.40 cm [ 2.70 - 3.70 ] RVSP 32.00mmHg [ 10.00 - 36.00 ] LA Volume Index 26 cc/m2 [ 16 - 34 ] Lateral E` 0.07m/s [ 0.10 - 0.15 ] ACS MM 1.44 cm E/E` 13 2D/MM Value Range Doppler ValueRange - FINDINGS: Interpretation Site: Exam was interpreted at [facility]. Left Ventricle: Normal left ventricular size. Normal global left ventricular systolicfunction. Impaired diastolic relaxation Grade I. Ejection fraction is measured at 60 %.Ejection Fraction is visually estimated to be 65 %. Global Longitudinal Strain is -22 %. Right Ventricle: Normal right ventricular size. Left Atrium: There is mild enlargement of left atrium. Right Atrium: The right atrium is normal in size. Atrial Septum: Normal atrial septum. Mitral Valve: Normal appearance of the mitral valve. Mild to moderate mitral valveregurgitation. Aortic Valve: Normal appearance of the aortic valve. Tricuspid Valve: Normal appearance of the tricuspid valve. Estimated peak RVSP is 32 mmHg.Mild tricuspid regurgitation. Pulmonic Valve: Normal appearance of the pulmonic valve. Mild pulmonic regurgitation. Pericardium: Normal pericardium with no significant pericardial effusion. Aorta: Normal aortic root. IVC: Normal size and normal respiratory collapse consistent with normal rightatrial pressure (<5 mmHg). Pulmonary Artery: Normal pulmonary artery size. CONCLUSIONS: Normal left ventricular size. Normal global left ventricular systolicfunction. Impaired diastolic relaxation Grade I. Ejection fraction is measured at 60 %.Ejection Fraction is visually estimated to be 65 %. Global Longitudinal Strain is -22 %. There is mild enlargement of left atrium. Normal appearance of the mitral valve. Mild to moderate mitral valveregurgitation. Normal appearance of the tricuspid valve. Estimated peak RVSP is 32 mmHg.Mild tricuspid regurgitation. Compared with 2023 estimated PA pressure is lower. No other difference. Electronically Signed By: Ron Chaudhry MD, [facility] 09/02/2024 1:09:54 PM CDT Jeane Gill MD CV ECHO PROCEDURES Final Result * ECG 12 lead (07/29/2024 9:42 AM CDT) Jeane Gill MD ECG ORDERABLES Final Res ult from Last 3 Months Insurance MEDICARE [facility] Address: [id number] [place] [address] MEDICARE [facility] MEDICARE SUPPLEMENT Member Subscriber Plan / Payer (Ef fective 2022-Present) Name:Hermelinda Vele[address] Relation to Subscriber:Self Name:Chasidy Velez Domingo Payer ID:[id number] Group ID:[id number] Type:COMMERCIAL Address: [address] [place] [id number] Care Teams Accountant Property Relationship Specialty Start Date End Date Jason Isaacs MD PCP - General Internal Medicine 07/13/18
--- OUTSIDE RECORDS SUMMARY | 2024-10-01 08:23 | XMS_ITS | Clinical Summary ---
Author Organization [facility] Lizzeth Yuan Address [address] [place] [address] Care Team Providers Care Energy Sales Consultant Name Role Phone Jason Isaacs MD Primary Care Provider [phone] Allergies Active Allergy Reactions Criticality Noted Date [...] MOUTH EVERY DAY Active Calcium Cmb 2-D3-Min [id number] (Citracal Plus Bone Density) 300-200-13.5 mg-unit-mg Tablet [...] on file Legal Sex Female 1:47 PM WINDOW INSTALLER Gender Identity Not on file Sexual Orientation Not on file Last Filed Vital Signs Vital Sign Reading Time Taken Comments Blood Pressure 169/79 05/13/2023 9:11 AM WINDOW INSTALLER Pulse 79 05/13/2023 9:08 AM WINDOW INSTALLER Temperature 36 C (96.8 F) 05/13/2023 9:08 AM WINDOW INSTALLER Respiratory Rate 10 05/13/2023 9:08 AM WINDOW INSTALLER Oxygen Saturation 96% 05/13/2023 9:08 AM WINDOW INSTALLER Inhaled Oxygen Concentration - - Weight 68.5 kg (151 lb) 05/13/2023 9:08 AM WINDOW INSTALLER Height 170.2 cm (5' 7) 12/31/2021 10:16 AM CDT Body Mass Index 23.65 12/31/2021 10:16 AM CDT Plan of Treatment Health Maintenance Due Date Last Done Comments DTAP/TDAP/TD VACCINES (1 - Tdap) 08/19/1963 PNEUMOCOCCAL VACCINE 50+ YEA RS (1 of 1 - PCV) 1994 12/26/2017 ZOSTER VACCINE (1 of 2) 1994 RSV VACCINE (60+ or ) (1 - 1-dose 75+ series) 08/19/2019 OSTEOPOROSIS SCREENING 10/16/2023 10/15/2018 INFLUENZA VACCINE (#1) 2023 2, 02/18/2021, 02/09/2020 COLORECTAL SCREENING Discontinued 04/25/2022, 11/11/19 18 Colorectal Cancer Screening Discontinued FIT-DNA Q 3 years Discontinued FIT/FOBT Q 1 year Discontinued Flex Sig/CT Colonography Q 5 years Discontinued Insurance MEDICARE PART A AND B BCBS SUPP Care Teams Energy Sales Consultant Relationship Specialty Start Date End Date Jason Isaacs MD [address] [place] [address] PCP - General Internal Medicine 06/25/20
--- OUTSIDE RECORDS SUMMARY | 2024-10-01 08:23 | XMS_ITS | Clinical Summary ---
Author Organization [facility] [address] Address [address] [place] [address] Care Team Providers Care Plastic Parts Designer Name Role Phone Jason Isaacs MD Primary [...] every evening 4 Active cholecalciferol (VITAMIN D-3) 34949 unit capsule Take 1 capsule (10,000 Units [...] Department Care Team Description 09/09/2024 Results Follow-Up [facility] Group Cardiology [address] [facility] [address] [place] [address] Jeane Gill MD Transthoracic Echo (TTE) Complete W Doppler/CF 09/02/2024 10:15 AM CDT Ancillary Procedure [facility] Group Cardiology at [address] [place] [address] PAF (paroxysmal atrial fibrillation) (HCC); Nonrheumatic mitral valve regurgitation 07/29/2024 11:15 AM CDT Office Visit [facility] Cardiology [address] [place] [address] [address] [place] [address] Jeane Gill MD Encounter for monitoring flecainide [...] on file Legal Sex Female 12:00 AM AIRCRAFT STEEL FABRICATOR Gender Identity Not on file Sexual Orientation Not on file Obstetrics History Last Filed Vital Signs Vital Sign Reading Time Taken Comments Blood Pressure 110/62 07/29/2024 11:07 AM CDT Pulse 72 07/29/2024 11:07 AM CDT Temperature 36.8 C (98.2 F) 06/12/2020 11:58 AM AIRCRAFT STEEL FABRICATOR Respiratory Rate - - Oxygen Saturation 99% 07/29/2024 11: 07 AM CDT Inhaled Oxygen Concentration - - Weight 65.7 kg (144 lb 12.8 oz) 025 11:07 AM CDT Height 175.3 cm (5' 9) 07/29/2024 11:0 7 AM CDT Body Mass Index 21.38 07/29/2024 11:07 AM CDT Plan of Treatment Health Maintenance Due Date Last Done Comments Depression Screening 1945 Fall Risk Assessment 1945 Osteoporosis Screening-Bone Density Scan 1945 DTaP/Tdap/Td Vaccine (1 - Tdap) 08/19/1955 Hepatitis B Screening 1962 Zoster Vaccine (1 of 2) 1994 Well Visit 65+ 2009 Pneumococcal vaccine 65+ (2 of 2 - PPSV23) 12/26/2018 12/26/2017 Influenza Vaccine (Season Ended) 2024 02/18/2022, 02/18/2021, 02/09/2020, Additional history exists Procedures Procedure Name Priority Date/Time Associated Diagnosis [...] AM CDT Narrative 09/02/2024 1:10 PM CDT [facility] Group Cardiology [address] [facility], [address], [place] [address] P:[phone] P:[phone] Echocardiographic Report Patient Name: CHASIDY VELEZ K [...] FINDINGS: Interpretation Site: Exam was interpreted at [facility]. Left Ventricle: Normal left ventricular size. Normal [...] Procedure Note Ron Chaudhry MD - 09/02/2024 [facility] Group Cardiology [address], [address], [place] [address] P:[phone] P:[phone] Echocardiographic Report Patient Name: CHASIDY VELEZ K : 1945 Study Date: 09/02/2024 10:05:40 AM Gender: F Tech: Location: [facility] Ref Provider: JEANE GILL Height(Cm): 175 BSA: [...] FINDINGS: Interpretation Site: Exam was interpreted at [facility]. Left Ventricle: Normal left ventricular size. Normal [...] ult from Last 3 Months Insurance MEDICARE MEDICARE [facility] MEDICARE SUPPLEMENT Care Teams Plastic Parts Designer Relationship Specialty Start Date End Date Jason Isaacs MD PCP - General Internal Medicine 07/13/18
--- OUTSIDE RECORDS SUMMARY | 2024-10-01 08:23 | XMS_ITS | Encounter Summary ---
Author Organization [facility] Address [address] [place] [address] Care Team Providers Care Section Beamer Name Role Phone Jason Isaacs MD Primary Care Provider [phone] Encounter Details Date Type Department Care Team (Latest Contact Info) Description 09/09/2024 Results Follow-Up [facility] Medical Group Cardiology [address] [place] [address] [place] [address] [place] [address] [address] [place] [address] Transthoracic Echo (TTE) Complete W Doppler/CF Social History Tobacco Use Types Packs/Day Years Used Date Smoking Tobacco: Former Cigarettes Q uit: 07/13/1998 Smokeless Tobacco: Never Alcohol Use Standard Drinks/Week Comments Yes 2 (1 standard drink = 0.6 oz pur e alcohol) 2 beers a day Comments Unknown Sex and Gender Information Value Date Recorded Sex Assigned at Not on file Legal Sex Female 12:00 AM PRE CERTIFICATION SPECIALIST Gender Identity Not on file Sexual Orientation Not on file documented as of this encounter Plan of Treatment Not on file documented as of this encounter Visit Diagnoses Not on filedocumented in this encounter Care Teams Section Beamer Relationship Specialty Start Date End Date Jason Isaacs MD PCP - General Internal Medicine 07/13/18 documented as of this encounter
--- OUTSIDE RECORDS SUMMARY | 2024-10-01 08:23 | XMS_ITS | Clinical Summary ---
Author Organization [facility] Address [address] [place] [address] Phone Care Team Providers Care Product Management Analyst Name Role Phone Jason Isaacs MD Primary Care Provider [phone] Allergies Active Allergy Reactions Criticality Noted Date Comments Oxycodone Dizziness,Nausea And Vomiting,nausea,Other (see comments) High 10/18/2019 Other reaction(s): Hypotension, Hypotension, Other (See Comments), Stomach upset Other reaction(s): Nausea only Sulfasalazine Nausea Only Low 01/12/2018 Medications ALPRAZolam (XANAX) 0.5 MG tablet Take 0.5 mg by mouth every night 0 Active atorvastatin (LIPITOR) 20 MG tablet Take 20 mg by mouth 1 (one) time each day 0 Active Calcium Citrate-Vitamin D (Calcium Citrate+D3 Petites) 200-250 MG-UNIT tablet 1 tablet Active magnesium oxide (MAG-OX) 400 MG tablet Take 1 tablet by mouth 2 (two) times a day 0 Active omeprazole (PriLOSEC) [address] capsule 0 Active predniSONE (DELTASONE) 5 MG tablet ALTERNATE DAILY BETWEEN TAKING 1 TABLET EVERY MORNING AND 2 TABLETS EVERY MORNING 0 Active XARELTO 15 MG tablet Take 15 mg by mouth 1 (one) time each day 0 Active leflunomide (ARAVA) 10 MG tablet Take 10 mg by mouth 1 (one) time each day 0 Active ascorbic acid (VITAMIN C) 500 MG tablet Active ferrous sulfate 325 (65 Fe) MG EC tablet Take by mouth Active metoprolol succinate XL (TOPROL-XL) 25 MG 24 hr tablet Take 12.5 mg by mouth 1 (one) time each day 1 Active flecainide (TAMBOCOR) 50 MG tablet 1 Active spironolactone (ALDACTONE) 25 MG tablet Take 1 tablet (25 mg total) by mouth 1 (one) time each day 90 tablet 3 2 Active Active Problems Problem Noted Date Diagnosed Date Anemia of chronic renal failure 06/25/2020 Vitamin D deficiency 03/15/2020 Stage 3b chronic kidney disease 10/12/2019 Essential hypertension 09/04/2017 Long-term current use of anticoagulant 8 Paroxysmal atrial fibrillation 09/04/2017 Rheumatoid arthritis 09/04/2017 Immunizations Immunization Administration Dates Next Due Influenza TIV (IM) 02/18/2022,02/18/2021, 020 Pneumococcal Conjugate 12/26/2017 Social History Tobacco Use Types Packs/Day Years Used Date Smoking Tobacco: Former Smokeless Tobacco: Never Alcohol Use Standard Drinks/Week Comments Yes 2 (1 standard drink = 0.6 oz pur e alcohol) Comments Unknown Sex and Gender Information Value Date Recorded Sex Assigned at Not on file Legal Sex Female 12:30 PM MDT Gender Identity Not on file Sexual Orientation Not on file Last Filed Vital Signs Vital Sign Reading Time Taken Comments Blood Pressure 122/60 04/02/2022 10:22 AM TERRITORY OUTSIDE SALES MANAGER Pulse 72 04/02/2022 10:22 AM TERRITORY OUTSIDE SALES MANAGER Temperature 35.3 C (95.5 F) 04/02/2022 10:22 AM TERRITORY OUTSIDE SALES MANAGER Respiratory Rate - - Oxygen Saturation - - Inhaled Oxygen Concentration - - Weight 66.2 kg (146 lb) 04/02/2022 10:22 AM TERRITORY OUTSIDE SALES MANAGER Height 162.6 cm (5' 4) 04/02/2022 10:22 AM TERRITORY OUTSIDE SALES MANAGER Body Mass Index 25.06 04/02/2022 10:22 AM TERRITORY OUTSIDE SALES MANAGER Plan of Treatment Health Maintenance Due Date Last Done Comments Pneumococcal PPSV23/PCV13 65 + Years / High and Highest Risk (1 of 5 - PCV) 08/19/1963 Influenza Vaccine (Season Ended) 2024 02/18/2022, 02/18/2021, 02/09/2020 Insurance MEDICARE [facility] Care Teams Product Management Analyst Relationship Specialty Start Date End Date Jason Isaacs MD [address] [place] [address] PCP - General Internal Medicine 10/10/19
== END 2024-10-01 08:21 | disposition home or self-care (01) ==
LOC: CHSIMG 08:21
PROVIDERS: PCP Internal Medicine
DX: M05.79 Rheumatoid arthritis with rheumatoid factor of multiple sites without organ or systems involvement (principal); M06.4 Inflammatory polyarthropathy; I48.91 Unspecified atrial fibrillation; M79.10 Myalgia, unspecified site; M54.16 Radiculopathy, lumbar region; M43.06 Spondylolysis, lumbar region
CPT/HCPCS: 72148

== ENCOUNTER 2024-11-02 07:53 | Outpatient (CLI) | payer MEDICARE, SELFPAY ==
--- OUTSIDE RECORDS SUMMARY | 2024-11-02 07:57 | XMS_ITS | Patient Health Record ---
Author Organization [facility] Address [address] [place], [place] [address] Care Team Providers Care Family Centered Specialist Name Role Phone GISELLE Degroot Unavailable [phone] Jason Isaacs Unavailable Unavailable Reason For Referral No Information Medications Medication SIG (Take, Route, Frequency, Duration) Notes Start Date End Date Status Ascorbic Acid 500 MG Oral Tablet ORAL ascorbic acid 500 MG Oral TabletOriginal Medicationascorbic acid 500 MG Oral Tablet *Reorder from Outbrain for eRx and Interaction Alerts* 04/18/2019 Active Magnesium Oxide 400 MG Oral Tablet magnesium oxide 400 MG Oral TabletOriginal Medicationmagnesium oxide 400 MG Oral Tablet *Reorder from Outbrain for eRx and Interaction Alerts* 05/13/2021 6 Active Lysine 500 MG Oral Tablet ORAL lysine 500 MG Oral TabletOriginal Medicationlysine 500 MG Oral Tablet *Reorder from Outbrain for eRx and Interaction Alerts* 04/18/2019 Active calcium citrate 950 MG / cholecalciferol 250 UNT Oral Tablet ORAL calcium citrate 950 MG / cholecalciferol 250 UNT Oral TabletOriginal Medicationcalcium citrate 950 MG / cholecalciferol 250 UNT Oral Tablet *Reorder from Outbrain for eRx and Interaction Alerts* 04/18/2019 Active magnesium oxide 400 MG Oral Capsule ORAL magnesium oxide 400 MG Oral CapsuleOriginal Medicationmagnesium oxide 400 MG Oral Capsule *Reorder from Outbrain for eRx and Interaction Alerts* 04/18/2019 Active potassium chloride 20 MEQ Powder for Oral Solution ORAL potassium chloride 20 MEQ Powder for Oral SolutionOriginal Medicationpotassium chloride 20 MEQ Powder for Oral Solution *Reorder from Outbrain for eRx and Interaction Alerts* 04/18/2019 Active Plan Of Treatment No Information Insurance Providers Payer Name Payer Address Payer Phone Subscriber Number Group Number Insured Name Patient Relationship to Insured Coverage Start Date Coverage End Date Medicare Part B [place] [address] [place] [phone] [id number] MELI VELEZ Self - patient is the insured [employer] [address] [place] [address] [phone] [id number] MELI VELEZ Self - patient is the insured
--- OUTSIDE RECORDS SUMMARY | 2024-11-02 07:57 | XMS_ITS | Clinical Summary ---
Author Organization [facility] Lizzeth Yuan Address [address] [place] [address] Care Team Providers Care Spray Drier Operator Name Role Phone Jason Isaacs MD Primary Care Provider [phone] Allergies Active Allergy Reactions Criticality Noted Date [...] MOUTH EVERY DAY Active Calcium Cmb 2-D3-Min [id number] (Citracal Plus Bone Density) 300-200-13.5 mg-unit-mg Tablet [...] on file Legal Sex Female 1:47 PM TRAVEL RN OR Gender Identity Not on file Sexual Orientation Not on file Last Filed Vital Signs Vital Sign Reading Time Taken Comments Blood Pressure 169/79 05/13/2023 9:11 AM TRAVEL RN OR Pulse 79 05/13/2023 9:08 AM TRAVEL RN OR Temperature 36 C (96.8 F) 05/13/2023 9:08 AM TRAVEL RN OR Respiratory Rate 10 05/13/2023 9:08 AM TRAVEL RN OR Oxygen Saturation 96% 05/13/2023 9:08 AM TRAVEL RN OR Inhaled Oxygen Concentration - - Weight 68.5 kg (151 lb) 05/13/2023 9:08 AM TRAVEL RN OR Height 170.2 cm (5' 7) 12/31/2021 10:16 [...] OSTEOPOROSIS SCREENING 10/16/2023 10/15/2018 INFLUENZA VACCINE (#1) 2024 2, 02/18/2021, 02/09/2020 COLORECTAL SCREENING Discontinued 04/25/2022, 11/11/19 18 Colorectal Cancer Screening Discontinued FIT-DNA Q 3 years Discontinued FIT/FOBT Q 1 year Discontinued Flex Sig/CT Colonography Q 5 years Discontinued Insurance MEDICARE PART A AND B BCBS SUPP Care Teams Spray Drier Operator Relationship Specialty Start Date End Date Jason Isaacs MD [address] [place] [address] PCP - General Internal Medicine 06/25/20
--- OUTSIDE RECORDS SUMMARY | 2024-11-02 07:57 | XMS_ITS | Clinical Summary ---
Author Organization [facility] Address [address] [place] [address] Phone Care Team Providers Care Canal Driver Name Role Phone Jason Isaacs MD Primary Care Provider [phone] Allergies Active Allergy Reactions Criticality Noted Date [...] Comments Blood Pressure 122/60 04/02/2022 10:22 AM FLIGHT CONTROL SPECIALIST Pulse 72 04/02/2022 10:22 AM FLIGHT CONTROL SPECIALIST Temperature 35.3 C (95.5 F) 04/02/2022 10:22 AM FLIGHT CONTROL SPECIALIST Respiratory Rate - - Oxygen Saturation - - Inhaled Oxygen Concentration - - Weight 66.2 kg (146 lb) 04/02/2022 10:22 AM FLIGHT CONTROL SPECIALIST Height 162.6 cm (5' 4) 04/02/2022 10:22 AM FLIGHT CONTROL SPECIALIST Body Mass Index 25.06 04/02/2022 10:22 AM FLIGHT CONTROL SPECIALIST Plan of Treatment Health Maintenance Due Date Last Done Comments Pneumococcal PPSV23/PCV13 65 + Years / Low and Medium Risk (1 of 2 - PCV) 1994 Influenza Vaccine (#1) 2024 2, 02/18/2021, 02/09/2020 Insurance MEDICARE [facility] [[email or web address]] Care Teams Canal Driver Relationship Specialty Start Date End Date Jason Isaacs MD [address] [place] [address] PCP - General Internal Medicine 10/10/19
--- OUTSIDE RECORDS SUMMARY | 2024-11-02 07:57 | XMS_ITS | Referral Summary ---
Author Organization [facility] [address] [place] [address] [address] Address [address] [facility] [address] [place] [address] Care Team Providers Care Gizzard Skin Remover Name Role Phone Jason Isaacs MD Primary Care Provider [phone] Encounters Date Type Department Care Team Description 09/09/2024 Results Follow-Up [facility] Cardiology [address] [place] [address] [address] [place] [address] Jeane Gill MD Transthoracic Echo (TTE) Complete W Doppler/CF 09/02/2024 10:15 AM CDT Ancillary Procedure [facility] Medical Group Cardiology at [address] [place] [address] PAF (paroxysmal atrial fibrillation) (HCC); Nonrheumatic mitral valve regurgitation from Last 3 Months Allergies Active Allergy Reactions Criticality Noted Date Comments Oxycodone Dizziness,Nausea only,Hypotension,Other (See comments) High 10/18/2019 Sulfadiazine Nausea And Vomiting High 06/25/2020 Medications ALPRAZolam (XANAX) 0.5 mg tablet Take 1 tablet (0.5 mg total) by mouth nightly 08/18/19 18 Active atorvastatin (LIPITOR) 20 mg tablet Take 1 tablet (20 mg total) by mouth daily 08/26/19 18 Active predniSONE (DELTASONE) 5 mg tablet 5 mg alt with 10 mg every other day 07/03/19 18 Active leflunomide (ARAVA) 10 mg tabletIndicatio ns:Rheumatoid Arthritis Take 1 tablet (10 mg total) by mouth daily 08/18/19 18 Active omeprazole (PriLOSEC) 40 mg capsule Take 1 capsule (40 mg total) by mouth daily Active ascorbic acid (VITAMIN C) 500 mg tablet,chewable Acti ve calcium citrate-vitamin D3 200 mg calcium -250 unit tablet 1 tablet Active magnesium oxide (MAG-OX) 400 mg (241.3 mg elemental magnesium) tablet Take 1 tablet (400 mg total) by mouth 2 (two) times a day 99 12/30/19 19 Active ferrous sulfate 325 mg (65 mg of elemental iron) tabletIndicatio ns:Iron Deficiency Anemia Take 1 tablet (65 mg of elemental iron total) by mouth 3 (three) times a day with meals Active spironolactone (ALDACTONE) 25 mg tablet 01/20/20 21 Active Xarelto 15 mg tablet TAKE 1 TABLET BY MOUTH EVERY DAY 90 tablet 3 11/23/19 24 Active montelukast (SINGULAIR) 10 mg tablet Take 1 tablet (10 mg total) by mouth every evening 10/19/19 24 Active cholecalciferol (VITAMIN D-3) 14723 unit capsule Take 1 capsule (10,000 Units total) by mouth daily Active metoprolol XL (TOPROL-XL) 25 mg extended release tabletIndicatio ns:Atrial fibrillation, unspecified type (HCC) TAKE 1 TABLET BY MOUTH TWICE A DAY 180 tablet 3 01/13/20 24 Active furosemide (LASIX) 20 mg tablet Take 1 tablet (20 mg total) by mouth every morning 07/06/19 25 Active flecainide (TAMBOCOR) 50 mg tablet TAKE 1 TABLET BY MOUTH TWICE A DAY 180 tablet 3 11/01/19 25 Active flecainide (TAMBOCOR) 50 mg tablet TAKE 1 TABLET BY MOUTH TWICE A DAY 180 tablet 3 11/06/19 24 025 Discontinued Active Problems Problem Noted Date Diagnosed Date [...] on file Legal Sex Female 12:00 AM TESTER SEMICONDUCTOR PACKAGES Gender Identity Not on file Sexual Orientation Not on file Last Filed Vital Signs Vital Sign Reading Time Taken Comments Blood Pressure 110/62 07/29/2024 11:07 AM CDT Pulse 72 07/29/2024 11:07 AM CDT Temperature 36.8 C (98.2 F) 06/12/2020 11:58 AM TESTER SEMICONDUCTOR PACKAGES Respiratory Rate - - Oxygen Saturation 99% [...] atrial fibrillation) (HCC) Nonrheumatic mitral valve regurgitation from Last 3 Months Results * TRANSTHORACIC ECHO (TTE) COMPLETE W DOPPLER/CF WO CONTRAST (09/02/2024 10:26 AM CDT) Estimated EF 65 % CONS SCIMAGE EF Mod BP 60 % CONS SCIMAGE Anatomical Region Laterality Modality Ultrasound 09/02/2024 10:0 5 AM CDT Narrative 09/02/2024 1:10 PM CDT [facility] Medical Group Cardiology [address], [address], [place] [address] P:[phone] P:[phone] Echocardiographic Report Patient Name: CHASIDY VELEZ K [...] FINDINGS: Interpretation Site: Exam was interpreted at [facility]. Left Ventricle: Normal left ventricular size. [...] difference. Electronically Signed By: Ron Chaudhry MD, [facility] 09/02/2024 1:09:54 PM CDT Procedure Note Ron Chaudhry MD - 09/02/2024 [facility] Group Cardiology [address], [address], [place] [address] P:[phone] P:[phone] Echocardiographic Report Patient Name: CHASIDY VELEZ K [...] FINDINGS: Interpretation Site: Exam was interpreted at [facility]. Left Ventricle: Normal left ventricular size. [...] difference. Electronically Signed By: Ron Chaudhry MD, [facility] 09/02/2024 1:09:54 PM CDT Jeane Gill MD CV ECHO PROCEDURES Final Result from Last 3 Months Insurance MEDICARE MEDICARE [facility] MEDICARE SUPPLEMENT Care Teams Gizzard Skin Remover Relationship Specialty Start Date End Date Jason Isaacs MD PCP - General Internal Medicine 07/13/18
--- OUTSIDE RECORDS SUMMARY | 2024-11-02 07:57 | XMS_ITS | Clinical Summary ---
Author Organization [facility] [address] Address [address] [place] [address] Care Team Providers Care Brewer Helper Name Role Phone Jason Isaacs MD Primary Care Provider [phone] Allergies Active Allergy Reactions Criticality Noted Date [...] evening 10/19/19 24 Active cholecalciferol (VITAMIN D-3) 03249 unit capsule Take 1 capsule (10,000 Units [...] Department Care Team Description 09/09/2024 Results Follow-Up [facility] Medical Group Cardiology [address] [address] [address] [place] [address] Jeane Gill MD Transthoracic Echo (TTE) Complete W Doppler/CF 09/02/2024 10:15 AM CDT Ancillary Procedure [facility] Medical Group Cardiology at [address] [place] [address] PAF (paroxysmal atrial fibrillation) (HCC); [...] on file Legal Sex Female 12:00 AM MEDICAL SCIENTIFIC LIAISON Gender Identity Not on file Sexual Orientation Not on file Obstetrics History Last Filed Vital Signs Vital Sign Reading Time Taken Comments Blood Pressure 110/62 07/29/2024 11:07 AM CDT Pulse 72 07/29/2024 11:07 AM CDT Temperature 36.8 C (98.2 F) 06/12/2020 11:58 AM MEDICAL SCIENTIFIC LIAISON Respiratory Rate - - Oxygen Saturation 99% [...] - PPSV23) 12/26/2018 12/26/2017 Influenza Vaccine (#1) 2024 2, 02/18/2021, 02/09/2020, Additional history exists Procedures Procedure [...] AM CDT Narrative 09/02/2024 1:10 PM CDT [facility] Medical Group Cardiology [address] , [address], [place] [address] P:[phone] P:[phone] Echocardiographic Report Patient Name: CHASIDY VELEZ K [...] FINDINGS: Interpretation Site: Exam was interpreted at [facility]. Left Ventricle: Normal left ventricular size. Normal [...] difference. Electronically Signed By: Ron Chaudhry MD, [facility] 09/02/2024 1:09:54 PM CDT Procedure Note Ron Chaudhry MD - 09/02/2024 [facility] Medical Group Cardiology [address] [facility], [address], [place] [address] P:[phone] P:[phone] Echocardiographic Report Patient Name: CHASIDY VELEZ K [...] FINDINGS: Interpretation Site: Exam was interpreted at [facility]. Left Ventricle: Normal left ventricular size. Normal [...] difference. Electronically Signed By: Ron Chaudhry MD, [facility] 09/02/2024 1:09:54 PM CDT Jeane Gill MD CV ECHO PROCEDURES Final Result from Last 3 Months Insurance MEDICARE MEDICARE [facility] MEDICARE SUPPLEMENT Member Subscriber Plan / Payer (Ef fective 2022-Present) Name:Martha Chasidy K Relation to Subscriber:Self Name:Hermelinda Velezra Lane Payer ID:[id number] Group ID:[id number] Type:COMMERCIAL Address: [facility] [id number] [id number] Care Teams Brewer Helper Relationship Specialty Start Date End Date Jason Isaacs MD PCP - General Internal Medicine 07/13/18
--- OUTSIDE RECORDS SUMMARY | 2024-11-02 07:57 | XMS_ITS | Encounter Summary ---
Author Organization [facility] Address [address] [place] [address] Care Team Providers Care Windows Architect Name Role Phone Jason Isaacs MD Primary Care Provider [phone] Encounter Details Date Type Department Care Team (Latest Contact Info) Description 09/09/2024 Results Follow-Up [facility] Medical Group Cardiology [address] [place] [address] Edilberto Oscar MD [address] [facility] [address] [place] [address] Transthoracic Echo (TTE) Complete W Doppler/CF Social [...] on file Legal Sex Female 12:00 AM TRUST EVALUATION SUPERVISOR Gender Identity Not on file Sexual Orientation Not on file documented as of this encounter Plan of Treatment Not on file documented as of this encounter Visit Diagnoses Not on filedocumented in this encounter Care Teams Windows Architect Relationship Specialty Start Date End Date Jason Isaacs MD PCP - General Internal Medicine 07/13/18 documented as of this encounter
[2024-11-02 08:09] LABS: Hematocrit 39.3 % (35.0-42.0); Hemoglobin 12.2 g/dL (11.7-13.8); Mean Corpuscular HGB Conc 31.0 g/dL (32-36); Mean Corpuscular Hemoglobin 31.6 pg (27.0-31.0); Mean Corpuscular Volume 101.8 fL (78.0-102.0); Platelet Count Result 218 K/mm3 (150-420); Red Blood Count 3.86 M/mm3 (4.20-5.40); White Blood Count 9.7 K/mm3 (4.8-10.8)
[2024-11-02 08:39] LABS: Total Protein Urine Random 10 mg/dL; Ur Ttl Prot Creatinine Ratio 0.11 mg/mg (0-0.20)
[2024-11-02 09:04] LABS: Albumin Level 3.8 g/dL (3.5-5.1); Anion Gap 4 mmol/L (4-12); Blood Urea Nitrogen 27 mg/dL (7-17); Calcium 9.6 mg/dL (8.4-10.2); Carbon Dioxide 27 mmol/L (22-30); Chloride 106 mmol/L (98-107); Estimated Glomerular Filt Rate 33; Glucose 79 mg/dL (65-110); Osmolality Calculated 288 mOsm/kg (285-295); Potassium 3.1 mmol/L (3.4-5.0); Sodium 137 mmol/L (137-145)
== END 2024-11-02 07:54 | disposition home or self-care (01) ==
LOC: CHSLAB 07:54
PROVIDERS: PCP Internal Medicine; Visit Provider Internal Medicine Nephrology
DX: I12.9 Hypertensive chronic kidney disease with stage 1 through stage 4 chronic kidney disease, or unspecified chronic kidney disease (principal); N18.32 Chronic kidney disease, stage 3b
CPT/HCPCS: 36415; 80069; 82570; 83970; 84156; 85027

== ENCOUNTER 2024-12-02 09:04 | Outpatient (CLI) | payer MEDICARE, SELFPAY ==
--- OUTSIDE RECORDS SUMMARY | 2024-12-02 09:10 | XMS_ITS | Clinical Summary ---
Author Organization [facility] Lizzeth Yuan Address [address] [place] [address] Care Team Providers Care Angle Dozer Operator Name Role Phone Jason Isaacs MD Primary Care Provider [phone] Allergies Active Allergy Reactions Criticality Noted Date [...] MOUTH EVERY DAY Active Calcium Cmb 2-D3-Min [id number] (Citracal Plus Bone Density) 300-200-13.5 mg-unit-mg Tablet [...] on file Legal Sex Female 1:47 PM ELECTRICIAN RECTIFIER MAINTENANCE Gender Identity Not on file Sexual Orientation Not on file Last Filed Vital Signs Vital Sign Reading Time Taken Comments Blood Pressure 169/79 05/13/2023 9:11 AM ELECTRICIAN RECTIFIER MAINTENANCE Pulse 79 05/13/2023 9:08 AM ELECTRICIAN RECTIFIER MAINTENANCE Temperature 36 C (96.8 F) 05/13/2023 9:08 AM ELECTRICIAN RECTIFIER MAINTENANCE Respiratory Rate 10 05/13/2023 9:08 AM ELECTRICIAN RECTIFIER MAINTENANCE Oxygen Saturation 96% 05/13/2023 9:08 AM ELECTRICIAN RECTIFIER MAINTENANCE Inhaled Oxygen Concentration - - Weight 68.5 kg (151 lb) 05/13/2023 9:08 AM ELECTRICIAN RECTIFIER MAINTENANCE Height 170.2 cm (5' 7) 12/31/2021 10:16 [...] A AND B BCBS SUPP Care Teams Angle Dozer Operator Relationship Specialty Start Date End Date Jason Isaacs MD [address] [place] [address] PCP - General Internal Medicine 06/25/20
--- OUTSIDE RECORDS SUMMARY | 2024-12-02 09:10 | XMS_ITS | Clinical Summary ---
Author Organization [facility] Address [address] [place] [address] Phone Care Team Providers Care Switch Foreman Name Role Phone Jason Isaacs MD Primary Care Provider [phone] Allergies Active Allergy Reactions Criticality Noted Date [...] Comments Blood Pressure 122/60 04/02/2022 10:22 AM BOWLING ALLEY OPERATOR Pulse 72 04/02/2022 10:22 AM BOWLING ALLEY OPERATOR Temperature 35.3 C (95.5 F) 04/02/2022 10:22 AM BOWLING ALLEY OPERATOR Respiratory Rate - - Oxygen Saturation - - Inhaled Oxygen Concentration - - Weight 66.2 kg (146 lb) 04/02/2022 10:22 AM BOWLING ALLEY OPERATOR Height 162.6 cm (5' 4) 04/02/2022 10:22 AM BOWLING ALLEY OPERATOR Body Mass Index 25.06 04/02/2022 10:22 AM BOWLING ALLEY OPERATOR Plan of Treatment Health Maintenance Due Date Last Done Comments Pneumococcal PPSV23/PCV13 65 + Years / Low and Medium Risk (1 of 2 - PCV) 1994 Influenza Vaccine (#1) 2024 2, 02/18/2021, 02/09/2020 Insurance MEDICARE [facility] Care Teams Switch Foreman Relationship Specialty Start Date End Date Jason Isaacs MD [address] [place] [address] PCP - General Internal Medicine 10/10/19
--- OUTSIDE RECORDS SUMMARY | 2024-12-02 09:10 | XMS_ITS | Clinical Summary ---
Author Organization [facility] [address] Address [address] [place] [address] Care Team Providers Care Asphalt Tamper Name Role Phone Jason sIaacs MD Primary Care Provider [phone] Allergies Active Allergy Reactions Criticality Noted Date [...] spironolactone (ALDACTONE) 25 mg tablet 1 Active Xarelto 15 mg tablet TAKE 1 TABLET BY MOUTH EVERY DAY 90 tablet 3 4 Active montelukast (SINGULAIR) 10 mg tablet Take 1 tablet (10 mg total) by mouth every evening 4 Active cholecalciferol (VITAMIN D-3) 70638 unit capsule Take 1 capsule (10,000 Units total) by mouth daily Active metoprolol XL (TOPROL-XL) 25 mg extended release tabletIndication s:Atrial fibrillation, unspecified type (HCC) TAKE 1 TABLET BY MOUTH TWICE A DAY 180 tablet 3 4 Active furosemide (LASIX) 20 mg tablet Take 1 tablet (20 mg total) by mouth every morning 5 Active flecainide (TAMBOCOR) 50 mg tablet TAKE 1 TABLET BY MOUTH TWICE A DAY 180 tablet 3 5 Active Active Problems Problem Noted Date Diagnosed Date Nonrheumatic mitral valve regurgitation 07/30/19 25 SOB (shortness of breath) 06/24/2023 Encounter for monitoring flecainide therapy 01/25 Chronic renal impairment 01/12/2020 PAF (paroxysmal atrial fibrillation) 09/04/2017 Essential hypertension 09/04/2017 Rheumatoid arthritis 09/04/2017 Chronic anticoagulation 09/04/2017 Encounters Date Type Department Care Team Description 09/09/2024 Results Follow-Up [facility] Cardiology [address] [address] [address] [place] [address] Jeane Gill MD Transthoracic Echo (TTE) Complete W Doppler/CF 09/02/2024 10:15 AM CDT Ancillary Procedure [facility] Group Cardiology at [address] [place] [address] PAF (paroxysmal atrial fibrillation) (HCC); [...] on file Legal Sex Female 12:00 AM STEEL RULE DIE MAKER APPRENTICE Gender Identity Not on file Sexual Orientation Not on file Obstetrics History Last Filed Vital Signs Vital Sign Reading Time Taken Comments Blood Pressure 110/62 07/29/2024 11:07 AM CDT Pulse 72 07/29/2024 11:07 AM CDT Temperature 36.8 C (98.2 F) 06/12/2020 11:58 AM STEEL RULE DIE MAKER APPRENTICE Respiratory Rate - - Oxygen Saturation 99% [...] AM CDT Narrative 09/02/2024 1:10 PM CDT [facility] Cardiology [address], [address], [place] [address] P:[phone] P:[phone] Echocardiographic Report Patient Name: CHASIDY THOMAS K : 1945 Study Date: 09/02/2024 10:05:40 [...] FINDINGS: Interpretation Site: Exam was interpreted at [facility]. Left Ventricle: Normal left ventricular size. Normal [...] difference. Electronically Signed By: Ron Chaudhry MD, [facility] 09/02/2024 1:09:54 PM CDT Procedure Note Ron Chaudhry MD - 09/02/2024 [facility] Cardiology [address], [place] [address] P:[phone] P:[phone] Echocardiographic Report Patient Name: CHASIDY THOMAS K : 1945 Study Date: 09/02/2024 10:05:40 [...] FINDINGS: Interpretation Site: Exam was interpreted at [facility]. Left Ventricle: Normal left ventricular size. Normal [...] difference. Electronically Signed By: Ron Chaudhry MD, [facility] 09/02/2024 1:09:54 PM CDT Jeane Gill MD CV ECHO PROCEDURES Final Result from Last 3 Months [place] [address] MEDICARE [facility] MEDICARE SUPPLEMENT Care Teams Asphalt Tamper Relationship Specialty Start Date End Date Jason Isaacs MD PCP - General Internal Medicine 07/13/18
--- OUTSIDE RECORDS SUMMARY | 2024-12-02 09:10 | XMS_ITS | Patient Health Record ---
Author Organization [facility] Address [address] [place], [place] [address] Care Team Providers Care Scalder Name Role Phone GISELLE Degroot Unavailable [phone] Jason Isaacs Unavailable Unavailable Reason For Referral No Information Medications Medication SIG (Take, Route, Frequency, Duration) Notes Start Date End Date Status Ascorbic Acid 500 MG Oral Tablet ORAL ascorbic acid 500 MG Oral TabletOriginal Medicationascorbic acid 500 MG Oral Tablet *Reorder from Double Fusion for eRx and Interaction Alerts* 04/18/2019 Active Magnesium Oxide 400 MG Oral Tablet magnesium oxide 400 MG Oral TabletOriginal Medicationmagnesium oxide 400 MG Oral Tablet *Reorder from Double Fusion for eRx and Interaction Alerts* 05/13/2021 6 Active Lysine 500 MG Oral Tablet ORAL lysine 500 MG Oral TabletOriginal Medicationlysine 500 MG Oral Tablet *Reorder from Double Fusion for eRx and Interaction Alerts* 04/18/2019 Active calcium citrate 950 MG / cholecalciferol 250 UNT Oral Tablet ORAL calcium citrate 950 MG / cholecalciferol 250 UNT Oral TabletOriginal Medicationcalcium citrate 950 MG / cholecalciferol 250 UNT Oral Tablet *Reorder from Double Fusion for eRx and Interaction Alerts* 04/18/2019 Active magnesium oxide 400 MG Oral Capsule ORAL magnesium oxide 400 MG Oral CapsuleOriginal Medicationmagnesium oxide 400 MG Oral Capsule *Reorder from Double Fusion for eRx and Interaction Alerts* 04/18/2019 Active potassium chloride 20 MEQ Powder for Oral Solution ORAL potassium chloride 20 MEQ Powder for Oral SolutionOriginal Medicationpotassium chloride 20 MEQ Powder for Oral Solution *Reorder from Double Fusion for eRx and Interaction Alerts* 04/18/2019 Active Plan Of Treatment No Information Insurance Providers Payer Name Payer Address Payer Phone Subscriber Number Group Number Insured Name Patient Relationship to Insured Coverage Start Date Coverage End Date Medicare Part B [place] [address] [place] [phone] [id number] MELI VELEZ Self - patient is the insured [employer] [address] [place] [id number] MELI VELEZ Self - patient is the insured
--- OUTSIDE RECORDS SUMMARY | 2024-12-02 09:10 | XMS_ITS | Encounter Summary ---
Author Organization [facility] Healthcare Address [address] [place] [address] Care Team Providers Care Labor Conciliator Name Role Phone No, Physician Primary Care Provider [phone] Cristobal Olivas MD Primary Care Provider [phone] Jason Isaacs MD Primary Care Provider [phone] Encounter Details Date Type Department Care Team (Late st Contact Info) Description 07/07/2017 Orders Only [facility] Health Information Management [address] [place] [id number] Scanning, Provider Social History Tobacco Use Types Packs/Day Years Used Date Smoking Tobacco: Never Assessed Comments Unknown Sex and Gender Information Value Date Recorded Sex Assigned at Not on file Legal Sex Female 12:00 AM STOP ATTACHER Gender Identity Not on file Sexual Orientation Not on file documented as of this encounter Plan of Treatment Not on file documented as of this encounter Procedures Procedure Name Priority Date/Time Associated Diagnosis Comments CARDIOLOGY DOCUMENT SCAN 07/07/2017 documented in this encounter Results * Cardiology Document Scan (07/07/2017) Anatomical Region Laterality Modality Other us Provider Scanning CV CARDIAC SERVICES PROCEDURES Edited Result - Final documented in this encounter Visit Diagnoses Not on filedocumented in this encounter Care Teams Labor Conciliator Relationship Specialty Start Date End Date No, Physician PCP - General 07/07/17 09/03/17 Cristobal Olivas MD [address] [place] [address] PCP - General Surgery 09/04/17 07/12/18 Jason Isaacs MD [address] [place] [address] PCP - General Internal Medicine 07/13/18 documented as of this encounter
[2024-12-02 09:40] LABS: Anion Gap 6 mmol/L (4-12); Blood Urea Nitrogen 49 mg/dL (7-17); Calcium 10.7 mg/dL (8.4-10.2); Carbon Dioxide 28 mmol/L (22-30); Chloride 104 mmol/L (98-107); Estimated Glomerular Filt Rate 23; Glucose 84 mg/dL (65-110); Osmolality Calculated 298 mOsm/kg (285-295); Potassium 3.2 mmol/L (3.4-5.0); Sodium 138 mmol/L (137-145)
== END 2024-12-02 09:05 | disposition home or self-care (01) ==
LOC: CHSLAB 09:05
PROVIDERS: PCP Internal Medicine; Visit Provider Internal Medicine Nephrology
DX: N18.32 Chronic kidney disease, stage 3b (principal)
CPT/HCPCS: 36415; 80048

== ENCOUNTER 2024-12-19 10:58 | Outpatient (CLI) | payer MEDICARE, SELFPAY ==
--- OUTSIDE RECORDS SUMMARY | 2024-12-19 11:45 | XMS_ITS | Patient Health Record ---
Author Organization [facility] Address [address] [place], [place] [id number] Care Team Providers Care Drone Operator Name Role Phone GISELLE Degroot Unavailable [phone] Jason Isaacs Unavailable Unavailable Reason For Referral No Information Medications Medication SIG (Take, Route, Frequency, Duration) Notes Start Date End Date Status Ascorbic Acid 500 MG Oral Tablet ORAL ascorbic acid 500 MG Oral TabletOriginal Medicationascorbic acid 500 MG Oral Tablet *Reorder from [employer] for eRx and Interaction Alerts* 04/18/2019 Active Magnesium Oxide 400 MG Oral Tablet magnesium oxide 400 MG Oral TabletOriginal Medicationmagnesium oxide 400 MG Oral Tablet *Reorder from [employer] for eRx and Interaction Alerts* 05/13/2021 6 Active Lysine 500 MG Oral Tablet ORAL lysine 500 MG Oral TabletOriginal Medicationlysine 500 MG Oral Tablet *Reorder from [employer] for eRx and Interaction Alerts* 04/18/2019 Active calcium citrate 950 MG / cholecalciferol 250 UNT Oral Tablet ORAL calcium citrate 950 MG / cholecalciferol 250 UNT Oral TabletOriginal Medicationcalcium citrate 950 MG / cholecalciferol 250 UNT Oral Tablet *Reorder from [employer] for eRx and Interaction Alerts* 04/18/2019 Active magnesium oxide 400 MG Oral Capsule ORAL magnesium oxide 400 MG Oral CapsuleOriginal Medicationmagnesium oxide 400 MG Oral Capsule *Reorder from [employer] for eRx and Interaction Alerts* 04/18/2019 Active potassium chloride 20 MEQ Powder for Oral Solution ORAL potassium chloride 20 MEQ Powder for Oral SolutionOriginal Medicationpotassium chloride 20 MEQ Powder for Oral Solution *Reorder from [employer] for eRx and Interaction Alerts* 04/18/2019 Active Plan Of Treatment No Information Insurance Providers Payer Name Payer Address Payer Phone Subscriber Number Group Number Insured Name Patient Relationship to Insured Coverage Start Date Coverage End Date Medicare Part B [place] [address] [place] [id number] MELI VELEZ Self - patient is the insured [employer] [address] [place] [id number] MELI VELEZ Self - patient is the insured
--- OUTSIDE RECORDS SUMMARY | 2024-12-19 11:45 | XMS_ITS | Clinical Summary ---
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 Gender Identity Not on file Sexual Orientation Not on file Last Filed Vital Signs Vital Sign Reading Time Taken Comments Blood Pressure 169/79 05/13/2023 9:11 AM MEN'S LOCKER ROOM ATTENDANT Pulse 79 05/13/2023 9:08 AM MEN'S LOCKER ROOM ATTENDANT Temperature 36 C (96.8 F) 05/13/2023 9:08 AM MEN'S LOCKER ROOM ATTENDANT Respiratory Rate 10 05/13/2023 9:08 AM MEN'S LOCKER ROOM ATTENDANT Oxygen Saturation 96% 05/13/2023 9:08 AM MEN'S LOCKER ROOM ATTENDANT Inhaled Oxygen Concentration - - Weight 68.5 kg (151 lb) 05/13/2023 9:08 AM MEN'S LOCKER ROOM ATTENDANT Height 170.2 cm (5' 7) 12/31/2021 10:16 [...] A AND B BCBS SUPP Care Teams Internal Recruiter Relationship Specialty Start Date End Date Jason Isaacs MD [address] [place] [address] PCP - General Internal Medicine 06/25/20
--- OUTSIDE RECORDS SUMMARY | 2024-12-19 11:45 | XMS_ITS | Clinical Summary ---
Author Organization [facility] Address [address] [place] [address] Phone Care Team Providers Care Riveter Name Role Phone Jason Isaacs MD Primary Care Provider [phone] Allergies Active Allergy Reactions Criticality Noted Date [...] Comments Blood Pressure 122/60 04/02/2022 10:22 AM CLINICAL RESEARCH ASSISTANT Pulse 72 04/02/2022 10:22 AM CLINICAL RESEARCH ASSISTANT Temperature 35.3 C (95.5 F) 04/02/2022 10:22 AM CLINICAL RESEARCH ASSISTANT Respiratory Rate - - Oxygen Saturation - - Inhaled Oxygen Concentration - - Weight 66.2 kg (146 lb) 04/02/2022 10:22 AM CLINICAL RESEARCH ASSISTANT Height 162.6 cm (5' 4) 04/02/2022 10:22 AM CLINICAL RESEARCH ASSISTANT Body Mass Index 25.06 04/02/2022 10:22 AM CLINICAL RESEARCH ASSISTANT Plan of Treatment Health Maintenance Due Date Last Done Comments Pneumococcal PPSV23/PCV13 65 + Years / Low and Medium Risk (1 of 2 - PCV) 1994 Influenza Vaccine (#1) 2024 2, 02/18/2021, 02/09/2020 Insurance MEDICARE [facility] Care Teams Riveter Relationship Specialty Start Date End Date Jason Isaacs MD [address] [place] [address] PCP - General Internal Medicine 10/10/19
--- OUTSIDE RECORDS SUMMARY | 2024-12-19 11:45 | XMS_ITS | Encounter Summary ---
Author Organization [facility] Healthcare Address [address] [place] [address] Care Team Providers Care Microfiche Camera Operator Name Role Phone No, Physician Primary Care Provider [phone] Cristobal Olivas MD Primary Care Provider [phone] Jason Isaacs MD Primary Care Provider [phone] Encounter Details Date Type Department Care Team (Late st Contact Info) Description 07/07/2017 Orders Only [facility] Health Information Management [address] [place] [address] Scanning, Provider Social History Tobacco Use Types Packs/Day Years Used Date Smoking Tobacco: Never Assessed Comments Unknown Sex and Gender Information Value Date Recorded Sex Assigned at Not on file 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
--- OUTSIDE RECORDS SUMMARY | 2024-12-19 11:45 | XMS_ITS | Clinical Summary ---
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 Gender Identity Not on file Sexual Orientation Not on file Obstetrics History Last Filed Vital Signs Vital Sign Reading Time Taken Comments Blood Pressure 110/62 07/29/2024 11:07 AM CDT Pulse 72 07/29/2024 11:07 AM CDT Temperature 36.8 C (98.2 F) 06/12/2020 11:58 AM CHUCKING LATHE OPERATOR Respiratory Rate - - Oxygen Saturation 99% [...] Pneumococcal vaccine 65+ (2 of 2 - PCV20 or PCV21) 12/26/2018 12/26/2017 Influenza Vaccine (#1) 2024 2, 02/18/2021, 02/09/2020, Additional history exists Insurance MEDICARE MEDICARE [facility] MEDICARE SUPPLEMENT Care Teams Dishroom Attendant Relationship Specialty Start Date End Date Jason Isaacs MD PCP - General Internal Medicine 07/13/18
[2024-12-19 11:55] LABS: Anion Gap 8 mmol/L (4-12); Blood Urea Nitrogen 37 mg/dL (7-17); Calcium 10.6 mg/dL (8.4-10.2); Carbon Dioxide 28 mmol/L (22-30); Chloride 102 mmol/L (98-107); Estimated Glomerular Filt Rate 27; Glucose 97 mg/dL (65-110); Osmolality Calculated 294 mOsm/kg (285-295); Potassium 3.8 mmol/L (3.4-5.0); Sodium 138 mmol/L (137-145)
== END 2024-12-19 10:59 | disposition home or self-care (01) ==
LOC: CHSLAB 11:00
PROVIDERS: PCP Internal Medicine; Visit Provider Internal Medicine Nephrology
DX: N18.32 Chronic kidney disease, stage 3b (principal)
CPT/HCPCS: 36415; 80048

== ENCOUNTER 2025-01-25 10:00 | Outpatient (RCR) | payer MEDICARE, SELFPAY ==
--- NOTE | 2024-12-13 15:24 | OPREHPOC ---
Outpatient Therapy Plan of Care This is a Multidisciplinary Plan of Care that may contain components documented by all disciplines (PT, OT, and ST.) PT Problem 1 PT Problem #1 Knowledge Deficit PT Goal 1 Goal / Goal Update The patient will be independent in a home exercise program. Target Visit 2 PT Problem 2 PT Problem #2 Pain PT Goal 1 Goal / Goal Update The patient will report no greater than 3/10 right lower back and leg pain with walking. Target Visit 10 PT Problem 3 PT Problem #3 Impaired Functional Mobility PT Goal 1 Goal / Goal Update The patient will demonstrate 25% or less self perceived disability per the Back Index questionnaire. The patient will ambulate 1,000 feet during the 6 MWT with minimal low back pain to improve community ambulation. PT Problem 4 PT Problem #4 Impaired Strength PT Goal 1 Goal / Goal Update The patient will demonstrate 4/5 upper and lower abdominal strength. Target Visit 10
--- NOTE | 2024-12-13 15:24 | PTOPEVAL1 ---
Assessment and note entered by Ekta Cervantes, PT Evaluation Information Assessment Status Evaluation ICD-10 Condition Codes (PT) Radiculopathy, lumbar region M54.16 Other ICD-10 Condition Codes ( M54.59 PT) Onset 11/29/24 Subjective Information Chasidy Thomas reports she started having pain in her right hip along the front of the thigh and to her knee. She started having pain about 6-8 months ago for unknown reasons. She has constant right lower back pain. Her pain is worse in the am and she has to use a walker to get out of bed and for approximately 1-2 hours after waking. She also notes pain is worse with standing more than 10 minutes and walking. She is still able to stand to cook and clean. She saw a pain management doctor and has a MRI that showed several bulging discs and narrowing. She was referred to PT. She is scheduled to have an injection on 01/04/25. Reported Pain Level Pain Score 7,10: Self Report Assessment PT Clinical Summary Chasidy Thomas presents with right lower back pain with radiculopathy to the right anterior thigh. MRI has shown bulging discs and spinal narrowing at L2-3, L3-4, and L4-5. She has difficulty with walking espcially in the am, standing longer than 10 minutes, and lifting heavy items. She objectively demonstrates poor posture, left lateral shift in standing, decreased and painful lumbar AROM, decreased core strength, and decreased functional abilities. She will benefit from skilled PT to address these limitations. Plan of Care Interventions Electrical Stimulation,Hot Pack/Cold Pack,Manual Therapy,Mechanical Traction,Neuro Re-education, Patient/Caregiver Education,Therapeutic Activities ,Therapeutic Exercise PT Services Indicated Yes Treatment Frequency and 3 times a week for 10 visits Duration These treatments will address the objective and functional deficits as defined above. The patient will be advanced safely and appropriately in order for the patient to progress towards his/her prior level of function. Additional exercises will be introduced and as well as a comprehensive home exercise program upon discharge, if needed, ?to ensure carryover of functional gains achieved in the clinic. This treatment plan has been reviewed and agreement upon by the patient.
--- NOTE | 2025-01-03 11:33 | OPREHPOC ---
Outpatient Therapy Plan of Care This is a Multidisciplinary Plan of Care that may contain components documented by all disciplines (PT, OT, and ST.) PT Problem 1 PT Problem #1 Knowledge Deficit PT Goal 1 Goal / Goal Update The patient will be independent in a home exercise program. Target Visit 2 Progress Met PT Goal 2 Goal / Goal Update continue to progress Target Visit 16 PT Problem 2 PT Problem #2 Pain PT Goal 1 Goal / Goal Update The patient will report no greater than 3/10 right lower back and leg pain with walking. -not met Target Visit 10 PT Goal 2 Goal / Goal Update continue Target Visit 16 PT Problem 3 PT Problem #3 Impaired Functional Mobility PT Goal 1 Goal / Goal Update The patient will demonstrate 25% or less self perceived disability per the Back Index questionnaire. -met The patient will ambulate 1,000 feet during the 6 MWT with minimal low back pain to improve community ambulation. -not met Progress Partially Met PT Goal 2 Goal / Goal Update continue second goal Target Visit 16 PT Problem 4 PT Problem #4 Impaired Strength PT Goal 1 Goal / Goal Update The patient will demonstrate 4/5 upper and lower abdominal strength. -not met Target Visit 10 PT Goal 2 Goal / Goal Update continue Target Visit 16
--- NOTE | 2025-01-03 11:33 | PTOPPROG ---
Assessment and note entered by Ekta Cervantes, PT Evaluation Information Assessment Status Discharge ICD-10 Condition Codes (PT) Radiculopathy, lumbar region M54.16 Other ICD-10 Condition Codes ( M54.59 PT) Onset 11/29/24 Subjective Information Chasidy Thomas reports she is doing better overall since starting PT. She is still using a walker first thing in the morning due to pain in her right hip along the front of the thigh and to her knee. She notes she can stand and walk now for 20- 30 minutes. She is scheduled to have an injection with pain management on 01/04/25. She does have limitations with how often she can clean her floors. Assessment PT Clinical Summary Chasidy Thomas has completed 10 skilled PT visits for right lower back pain with radiculopathy to the right anterior thigh. She is reporting less pain overall and improved tolerance to standing and walking however, she is still using a walker first thing in the am due to right leg pain and fear of falling. She continues to report pain as high as 9/10 in her right leg. She is scheduled to have an injection on 01/04/25. She demonstrates improving strength in her core and hips. She continues to have weakness, decreased walking and standing tolerance, and moderate to high pain levels. 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 Plan of Care Interventions Electrical Stimulation,Hot Pack/Cold Pack,Manual Therapy,Mechanical Traction,Neuro Re-education, Patient/Caregiver Education,Therapeutic Activities ,Therapeutic Exercise PT Services Indicated Yes Treatment Frequency and 2 times a week for 6 visits Duration These treatments will address the objective and functional deficits as defined above. The patient will be advanced safely and appropriately in order for the patient to progress towards his/her prior level of function. Additional exercises will be introduced and as well as a comprehensive home exercise program upon discharge, if needed, ?to ensure carryover of functional gains achieved in the clinic. This treatment plan has been reviewed and agreement upon by the patient.
--- NOTE | 2025-01-25 10:57 | OPREHPOC ---
Outpatient Therapy Plan of Care This is a Multidisciplinary Plan of Care that may contain components documented by all disciplines (PT, OT, and ST.) PT Problem 1 PT Problem #1 Knowledge Deficit PT Goal 1 Goal / Goal Update The patient will be independent in a home exercise program. Target Visit 2 Progress Met PT Goal 2 Goal / Goal Update continue to progress Target Visit 16 Progress Met PT Problem 2 PT Problem #2 Pain PT Goal 1 Goal / Goal Update The patient will report no greater than 3/10 right lower back and leg pain with walking. -not met Target Visit 10 PT Goal 2 Goal / Goal Update met for back, not met for right LE Target Visit 16 Progress Partially Met PT Problem 3 PT Problem #3 Impaired Functional Mobility PT Goal 1 Goal / Goal Update The patient will demonstrate 25% or less self perceived disability per the Back Index questionnaire. -met The patient will ambulate 1,000 feet during the 6 MWT with minimal low back pain to improve community ambulation. -met Progress Partially Met PT Goal 2 Goal / Goal Update continue second goal Target Visit 16 Progress Met PT Problem 4 PT Problem #4 Impaired Strength PT Goal 1 Goal / Goal Update The patient will demonstrate 4/5 upper and lower abdominal strength. -not met Target Visit 10 PT Goal 2 Goal / Goal Update met for upper abdominals, not met for lower abdominals Target Visit 16 Progress Partially Met
--- NOTE | 2025-01-25 10:58 | PTOPDC ---
Assessment and note entered by Ekta Cervantes, PT Evaluation Information Assessment Status Discharge ICD-10 Condition Codes (PT) Radiculopathy, lumbar region M54.16 Other ICD-10 Condition Codes ( M54.59 PT) Onset 11/29/24 Subjective Information Chasidy Thomas reports she is doing better overall since starting PT. She is still using a walker first thing in the morning due to pain in her right hip along the front of the thigh and to her knee but her pain subsides within an hour and she is able to perform all daily activities without limitations and does not use the walker all day. She has been experiencing less pain overall and feels she can continue home exercises independently now. Reported Pain Level Pain Score 0,3: Self Report Assessment PT Clinical Summary Chasidy Thomas has completed 16 skilled PT visits for right lower back pain with radiculopathy to the right anterior thigh. She is reporting less pain overall and improved tolerance to standing and walking however, she is still using a walker first thing in the am due to right leg pain and fear of falling. She continues to report pain as high as 7/10 in her right leg but it dissipates to 0/10 within an hour of waking. She demonstrates improved lumbar AROM, improved LE flexibility, and improved core and hip strength. She continues to demonstrate weakness in the lower abdominals primarily however, she is independent in home exercises to continue core strengthening and lumbar/LE flexibility. She will be discharged to her home exercise program. Plan of Care PT Services Indicated No
== END 2025-01-25 13:23 | disposition home or self-care (01) ==
LOC: CHSPT 10:00
PROVIDERS: Visit Provider Nurse Practitioner Family
DX: M54.16 Radiculopathy, lumbar region (principal); M54.59 Other low back pain
CPT/HCPCS: 36415; 80048; 97014; 97110; 97112; 97140; 97161; 97530; 97750; G0283

== ENCOUNTER 2025-03-01 14:05 | Outpatient (CLI) | payer MEDICARE, SELFPAY ==
--- NOTE | ~2025-03-01 | DEXA_ITS ---
? Bone Density Report? Name:? ying mazariegos Patient ID:? [id number] Age:?79 Sex:? Female Ethnicity:? White Date of : 1945 Indication: postmenopausal; screening for osteoporosis; parental hip fracture; height loss; rheumatoid arthritis; Referring Provider: Jason Isaacs Study: Bone densitometry was performed. Exam Date: March 01, 2025 Accession number: [id number] Bone Density: Region? BMD? ??T-score? Z-score?? Classification AP Spine(L1-L4)? 0.925?? -1.1?1.6? Osteopenia Femoral Neck (Left)? 0.617?? -2.1? 0.2? Osteopenia Total Hip (Left)? 0.723?? -1.8? 0.3? Osteopenia Femoral Neck (Right)? 0.596?? -2.3? 0.0? Osteopenia Total Hip (Right)? 0.716?? -1.9? 0.2? Osteopenia Femoral Neck Mean? 0.607?? -2.2? 0.1? Osteopenia Total Hip Mean? 0.719?? -1.8? 0.3? Osteopenia World Health Organization criteria for BMD impression classify patients as: Normal (T-score at or above -1.0), Osteopenia (T-score between -1.0 and -2.5), or Osteoporosis (T-score at or below -2.5). 10-year Fracture Risk: FRAX not reported because: ? Treated for osteoporosis Clinical Information Provided by Patient: Parent has had a hip fracture Has rheumatoid arthritis Is being treated for osteoporosis Has used the following medications: Reclast (i.e. zoledronate), Vitamin D Patient maximum height was 69 Menopause Age: 54 No regular weight bearing exercise Drinks caffeinated beverages Onset of menses at age 15 Number of children 3 Impression: The patient has low bone mass, based on the Right Femoral Neck T- score. The patient has risk factors, including: parental hip fracture. Discussion: It is important to ask patients whether they are taking their medications and to encourage continued and appropriate compliance with their osteoporosis therapies to reduce fracture risk. It is also important to review their risk factors and encourage appropriate calcium and vitamin D intakes, exercise, fall prevention and other lifestyle measures. Follow-Up: Consider a repeat BMD and Vertebral Fracture Assessment (VFA) exam in 2 years or sooner if medically necessary, to reassess this patient's status. Reported by: MARIELLE on :01:00 PM.
[2025-03-01 14:11] LABS: Hematocrit 38.9 % (35.0-42.0); Hemoglobin 12.0 g/dL (11.7-13.8); Mean Corpuscular HGB Conc 30.8 g/dL (32-36); Mean Corpuscular Hemoglobin 31.9 pg (27.0-31.0); Mean Corpuscular Volume 103.5 fL (78.0-102.0); Platelet Count Result 208 K/mm3 (150-420); Red Blood Count 3.76 M/mm3 (4.20-5.40); White Blood Count 9.4 K/mm3 (4.8-10.8)
[2025-03-01 14:21] LABS: Albumin Level 4.0 g/dL (3.5-5.1); Anion Gap 5 mmol/L (4-12); Blood Urea Nitrogen 36 mg/dL (7-17); Calcium 9.0 mg/dL (8.4-10.2); Carbon Dioxide 27 mmol/L (22-30); Chloride 109 mmol/L (98-107); Estimated Glomerular Filt Rate 26; Glucose 103 mg/dL (65-110); Osmolality Calculated 300 mOsm/kg (285-295); Potassium 4.0 mmol/L (3.4-5.0); Sodium 141 mmol/L (137-145)
[2025-03-01 14:22] LABS: Total Protein Urine Random 8 mg/dL; Ur Ttl Prot Creatinine Ratio 0.23 mg/mg (0-0.20)
[2025-03-02 07:49] LABS: Parathyroid Intact 207.1 (7.5-53.5)
--- OUTSIDE RECORDS SUMMARY | 2025-03-02 13:41 | XMS_ITS | Patient Health Record ---
Author Organization [facility] Address [address] [place], [place] [address] Care Team Providers Care Agricultural Equipment Salesperson Name Role Phone GISELLE Degroot Unavailable [phone] Jason Isaacs Unavailable Unavailable Reason For Referral No Information Medications Medication SIG (Take, Route, Frequency, Duration) Notes Start Date End Date Status Ascorbic Acid 500 MG Oral Tablet ORAL ascorbic acid 500 MG Oral TabletOriginal Medicationascorbic acid 500 MG Oral Tablet *Reorder from [employer] for eRx and Interaction Alerts* 04/18/2019 Active Magnesium Oxide 400 MG Oral Tablet magnesium oxide 400 MG Oral TabletOriginal Medicationmagnesium oxide 400 MG Oral Tablet *Reorder from [employer] for eRx and Interaction Alerts* 05/13/2021 6 Active Lysine 500 MG Oral Tablet ORAL lysine 500 MG Oral TabletOriginal Medicationlysine 500 MG Oral Tablet *Reorder from [employer] for eRx and Interaction Alerts* 04/18/2019 Active calcium citrate 950 MG / cholecalciferol 250 UNT Oral Tablet ORAL calcium citrate 950 MG / cholecalciferol 250 UNT Oral TabletOriginal Medicationcalcium citrate 950 MG / cholecalciferol 250 UNT Oral Tablet *Reorder from [employer] for eRx and Interaction Alerts* 04/18/2019 Active magnesium oxide 400 MG Oral Capsule ORAL magnesium oxide 400 MG Oral CapsuleOriginal Medicationmagnesium oxide 400 MG Oral Capsule *Reorder from [employer] for eRx and Interaction Alerts* 04/18/2019 Active potassium chloride 20 MEQ Powder for Oral Solution ORAL potassium chloride 20 MEQ Powder for Oral SolutionOriginal Medicationpotassium chloride 20 MEQ Powder for Oral Solution *Reorder from [employer] for eRx and Interaction Alerts* 04/18/2019 Active Social History Social History Additional Details Category Social Info Options Details Migrated Social History Migrated Social History Alcohol intake : , Smoking Status : Former smoker , History of tobacco use : Plan Of Treatment No Information Insurance Providers Payer Name Payer Address Payer Phone Subscriber Number Group Number Insured Name Patient Relationship to Insured Coverage Start Date Coverage End Date Medicare Part B [place] [address] [place] [phone] [id number] MELI VELEZ Self - patient is the insured [employer] [address] [place] [id number] MELI VELEZ Self - patient is the insured
--- OUTSIDE RECORDS SUMMARY | 2025-03-02 13:41 | XMS_ITS | Clinical Summary ---
Author Organization [facility] [address] Address [address] [place] [address] Care Team Providers Care Photovoltaic Panel Installer Name Role Phone Jason Isaacs MD Primary Care Provider [phone] Allergies Active Allergy Reactions Criticality Noted Date [...] day 8 Active leflunomide (ARAVA) 10 mg tabletIndicatio ns:Rheumatoid [...] spironolactone (ALDACTONE) 25 mg tablet 1 Active cholecalciferol (VITAMIN D-3) 79493 unit capsule Take 1 capsule (10,000 Units total) by mouth daily Active furosemide (LASIX) 20 mg tablet Take 1 tablet (20 mg total) by mouth every morning 5 Active flecainide (TAMBOCOR) 50 mg tablet TAKE 1 TABLET BY MOUTH TWICE A DAY 180 tablet 3 5 Active Xarelto 15 mg tablet TAKE 1 TABLET BY MOUTH EVERY DAY 90 tablet 3 5 Active metoprolol XL (TOPROL-XL) 25 mg extended release tabletIndicatio ns:Atrial fibrillation, unspecified type (HCC) TAKE 1 TABLET BY MOUTH TWICE A DAY 180 tablet 3 5 Active montelukast (SINGULAIR) 10 mg tablet Take 1 tablet (10 mg total) by mouth every evening 4 02/04/20 25 Discontinu ed(No longer taking - Do not display on AVS) Active Problems Problem Noted Date Diagnosed Date Nonrheumatic mitral valve regurgitation 07/30/19 25 SOB (shortness of breath) 06/24/2023 Encounter for monitoring flecainide therapy 01/25 Chronic renal impairment 01/12/2020 PAF (paroxysmal atrial fibrillation) 09/04/2017 Essential hypertension 09/04/2017 Rheumatoid arthritis 09/04/2017 Chronic anticoagulation 09/04/2017 Encounters Date Type Department Care Team Description 02/03/2025 11:30 AM CDT Office Visit [facility] Cardiology [address] [place] [address] Edilberto Oscar MD PAF (paroxysmal atrial fibrillation) (Primary Dx); Encounter for monitoring flecainide therapy; Essential hypertension; Nonrheumatic mitral valve regurgitation; Chronic anticoagulation; Hyperlipidemia LDL goal <100 from Last 3 Months Surgical History Surgery Date Site/Laterality Comments APPENDECTOMY during ligation age 39 TUBAL LIGATION Age 39 JOINT REPLACEMENT Knee October 17, 2019 CATARACT EXTRACTION 2 yrs ago Medical History Medical History Date Comments GERD (gastroesophageal reflux disease) 10 yrs ag o ? Cataract Removed 2 yrs ago ? Osteoporosis 1 yr ago Hypertension ??? GI (gastrointestinal bleed) Bleeding ulcer remot e past Arthritis 20 yrs ago ? Autoimmune disease Rheumatoid arthritis ? 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 Gender Identity Not on file Sexual Orientation Not on file Last Filed Vital Signs Vital Sign Reading Time Taken Comments Blood Pressure 132/60 02/03/2025 11:10 AM CDT Pulse 71 02/03/2025 11:10 AM CDT Temperature 36.8 C (98.2 F) 06/12/2020 11:58 AM NATURAL RESOURCES FACULTY MEMBER Respiratory Rate - - Oxygen Saturation 94% 02/03/2025 11:10 AM CDT Inhaled Oxygen Concentration - - Weight 60.3 kg (133 lb) 02/03/2025 11:10 AM CDT Height 175.3 cm (5' 9) 02/03/2025 11:10 AM CDT Body Mass Index 19.64 02/03/2025 11:10 AM CDT Plan of Treatment Health Maintenance [...] 02/09/2020, Additional history exists Insurance MEDICARE MEDICARE [facility] MEDICARE SUPPLEMENT Care Teams Photovoltaic Panel Installer Relationship Specialty Start Date End Date Jason Isaacs MD PCP - General Internal Medicine 07/13/18
--- OUTSIDE RECORDS SUMMARY | 2025-03-02 13:41 | XMS_ITS | Encounter Summary ---
Author Organization [facility] Healthcare Address [address] [place] [address] Care Team Providers Care Holter Scanning Technician Name Role Phone No, Physician Primary Care Provider Cristobal Olivas MD Primary Care Provider [phone] Jason Isaacs MD Primary Care Provider [phone] Encounter Details Date Type Department Care Team (Late st Contact Info) Description 07/07/2017 Orders Only [facility] Health Information Management [address] [place] [address] Scanning, Provider Social History Tobacco Use Types Packs/Day Years Used Date Smoking Tobacco: Never Assessed Comments Unknown Sex and Gender Information Value Date Recorded Sex Assigned at Not on file 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
--- OUTSIDE RECORDS SUMMARY | 2025-03-02 13:42 | XMS_ITS | Clinical Summary ---
Author Organization [facility] Address [address] [place] [address] Phone Care Team Providers Care Training Coordinator Name Role Phone Jason Isaacs MD Primary Care Provider [phone] Allergies Active Allergy Reactions Criticality Noted Date [...] Comments Blood Pressure 122/60 04/02/2022 10:22 AM MANAGER CUSTOMS Pulse 72 04/02/2022 10:22 AM MANAGER CUSTOMS Temperature 35.3 C (95.5 F) 04/02/2022 10:22 AM MANAGER CUSTOMS Respiratory Rate - - Oxygen Saturation - - Inhaled Oxygen Concentration - - Weight 66.2 kg (146 lb) 04/02/2022 10:22 AM MANAGER CUSTOMS Height 162.6 cm (5' 4) 04/02/2022 10:22 AM MANAGER CUSTOMS Body Mass Index 25.06 04/02/2022 10:22 AM MANAGER CUSTOMS Plan of Treatment Health Maintenance Due Date Last Done Comments Pneumococcal PPSV23/PCV13 65 + Years / Low and Medium Risk (1 of 2 - PCV) 1994 Influenza Vaccine (#1) 2024 2, 02/18/2021, 02/09/2020 Insurance MEDICARE [facility] Care Teams Training Coordinator Relationship Specialty Start Date End Date Jason Isaacs MD [address] [place] [address] PCP - General Internal Medicine 10/10/19
--- OUTSIDE RECORDS SUMMARY | 2025-03-02 13:42 | XMS_ITS | Clinical Summary ---
Author Organization [facility] Lizzeth Yuan Address [address] [place] [address] Care Team Providers Care Clothing Patternmaker Name Role Phone Jason Isaacs MD Primary Care Provider [phone] Allergies Active Allergy Reactions Criticality Noted Date [...] MOUTH EVERY DAY Active Calcium Cmb 2-D3-Min [id number] (Citracal Plus Bone Density) 300-200-13.5 mg-unit-mg Tablet [...] on file Legal Sex Female 1:47 PM VICE PRESIDENT OF HUMAN RESOURCES Gender Identity Not on file Sexual Orientation Not on file Last Filed Vital Signs Vital Sign Reading Time Taken Comments Blood Pressure 169/79 05/13/2023 9:11 AM VICE PRESIDENT OF HUMAN RESOURCES Pulse 79 05/13/2023 9:08 AM VICE PRESIDENT OF HUMAN RESOURCES Temperature 36 C (96.8 F) 05/13/2023 9:08 AM VICE PRESIDENT OF HUMAN RESOURCES Respiratory Rate 10 05/13/2023 9:08 AM VICE PRESIDENT OF HUMAN RESOURCES Oxygen Saturation 96% 05/13/2023 9:08 AM VICE PRESIDENT OF HUMAN RESOURCES Inhaled Oxygen Concentration - - Weight 68.5 kg (151 lb) 05/13/2023 9:08 AM VICE PRESIDENT OF HUMAN RESOURCES Height 170.2 cm (5' 7) 12/31/2021 10:16 [...] A AND B BCBS SUPP Care Teams Clothing Patternmaker Relationship Specialty Start Date End Date Jason Isaacs MD [address] [place] [address] PCP - General Internal Medicine 06/25/20
== END 2025-03-01 14:06 | disposition home or self-care (01) ==
LOC: CHSIMG 14:07
PROVIDERS: PCP Internal Medicine; Visit Provider Internal Medicine Nephrology
DX: N18.9 Chronic kidney disease, unspecified (principal); N18.32 Chronic kidney disease, stage 3b; M81.0 Age-related osteoporosis without current pathological fracture; M85.89 Other specified disorders of bone density and structure, multiple sites
CPT/HCPCS: 36415; 77080; 80069; 82570; 83970; 84156; 85027

== ENCOUNTER 2025-03-03 08:58 | Outpatient (CLI) | payer MEDICARE, SELFPAY ==
[2025-03-03 09:07] VITALS: BMI 23.8
[2025-03-03] MEDS: ZOLEDRONIC ACID 5 MG/100 ML 100 ML 400 MG IVPB (09:15)
[2025-03-03 09:18] VITALS: BP 125/70; PULSE 68; RESP 14; TEMP 36.6; O2SAT 98
--- OUTSIDE RECORDS SUMMARY | 2025-03-03 09:37 | XMS_ITS | Clinical Summary ---
Author Organization [facility] Lizzeth Yuan Address [address] [place] [address] Care Team Providers Care Demonstrator Sales Name Role Phone Jason Isaacs MD Primary Care Provider [phone] Allergies Active Allergy Reactions Criticality Noted Date [...] MOUTH EVERY DAY Active Calcium Cmb 2-D3-Min [id number] (Citracal Plus Bone Density) 300-200-13.5 mg-unit-mg Tablet [...] on file Legal Sex Female 1:47 PM WOOD BOATBUILDER Gender Identity Not on file Sexual Orientation Not on file Last Filed Vital Signs Vital Sign Reading Time Taken Comments Blood Pressure 169/79 05/13/2023 9:11 AM WOOD BOATBUILDER Pulse 79 05/13/2023 9:08 AM WOOD BOATBUILDER Temperature 36 C (96.8 F) 05/13/2023 9:08 AM WOOD BOATBUILDER Respiratory Rate 10 05/13/2023 9:08 AM WOOD BOATBUILDER Oxygen Saturation 96% 05/13/2023 9:08 AM WOOD BOATBUILDER Inhaled Oxygen Concentration - - Weight 68.5 kg (151 lb) 05/13/2023 9:08 AM WOOD BOATBUILDER Height 170.2 cm (5' 7) 12/31/2021 10:16 [...] A AND B BCBS SUPP Care Teams Demonstrator Sales Relationship Specialty Start Date End Date Jason Isaacs MD [address] [place] [address] PCP - General Internal Medicine 06/25/20
--- OUTSIDE RECORDS SUMMARY | 2025-03-03 09:37 | XMS_ITS | Clinical Summary ---
Author Organization [facility] Address [address] [place] [address] Phone Care Team Providers Care Animal Rides Manager Name Role Phone Jason Isaacs MD Primary Care Provider [phone] Allergies Active Allergy Reactions Criticality Noted Date [...] Comments Blood Pressure 122/60 04/02/2022 10:22 AM AUTOMOBILE UPHOLSTERER APPRENTICE Pulse 72 04/02/2022 10:22 AM AUTOMOBILE UPHOLSTERER APPRENTICE Temperature 35.3 C (95.5 F) 04/02/2022 10:22 AM AUTOMOBILE UPHOLSTERER APPRENTICE Respiratory Rate - - Oxygen Saturation - - Inhaled Oxygen Concentration - - Weight 66.2 kg (146 lb) 04/02/2022 10:22 AM AUTOMOBILE UPHOLSTERER APPRENTICE Height 162.6 cm (5' 4) 04/02/2022 10:22 AM AUTOMOBILE UPHOLSTERER APPRENTICE Body Mass Index 25.06 04/02/2022 10:22 AM AUTOMOBILE UPHOLSTERER APPRENTICE Plan of Treatment Health Maintenance Due Date Last Done Comments Pneumococcal PPSV23/PCV13 65 + Years / Low and Medium Risk (1 of 2 - PCV) 1994 Influenza Vaccine (#1) 2024 2, 02/18/2021, 02/09/2020 Insurance * Guarantor: Chasidy Thomas Account Type Relation to Patient Date of Phone Billing Address Personal/Family Self [address] [place] [id number] MEDICARE [facility] Care Teams Animal Rides Manager Relationship Specialty Start Date End Date Jason Isaacs MD [address] [place] [address] PCP - General Internal Medicine 10/10/19
--- OUTSIDE RECORDS SUMMARY | 2025-03-03 09:37 | XMS_ITS | Clinical Summary ---
Author Organization [facility] [address] Address [address] [place] [address] Care Team Providers Care Regional Liaison Name Role Phone Jason Isaacs MD Primary Care Provider [phone] Allergies Active Allergy Reactions Criticality Noted Date [...] mg tablet 1 Active cholecalciferol (VITAMIN D-3) 88642 unit capsule Take 1 capsule (10,000 Units [...] Description 02/03/2025 11:30 AM CDT Office Visit [facility] Cardiology [address] [place] [address] Edilberto Oscar MD PAF (paroxysmal atrial [...] on file Legal Sex Female 12:00 AM ELECTROLYTIC ETCHER Gender Identity Not on file Sexual Orientation Not on file Last Filed Vital Signs Vital Sign Reading Time Taken Comments Blood Pressure 132/60 02/03/2025 11:10 AM CDT Pulse 71 02/03/2025 11:10 AM CDT Temperature 36.8 C (98.2 F) 06/12/2020 11:58 AM ELECTROLYTIC ETCHER Respiratory Rate - - Oxygen Saturation 94% [...] 02/09/2020, Additional history exists Insurance MEDICARE MEDICARE [facility] MEDICARE SUPPLEMENT Care Teams Regional Liaison Relationship Specialty Start Date End Date Jason Isaacs MD PCP - General Internal Medicine 07/13/18
--- OUTSIDE RECORDS SUMMARY | 2025-03-03 09:37 | XMS_ITS | Encounter Summary ---
Author Organization [facility] Healthcare Address [address] [place] [address] Care Team Providers Care Touch Up Painter Hand Name Role Phone No, Physician Primary Care Provider [phone] Cristobal Olivas MD Primary Care Provider [phone] Jason Isaacs MD Primary Care Provider [phone] Encounter Details Date Type Department Care Team (Late st Contact Info) Description 07/07/2017 Orders Only [facility] Health Information Management [address] [place] [address] Scanning, Provider Social History Tobacco Use Types Packs/Day Years Used Date Smoking Tobacco: Never Assessed Comments Unknown Sex and Gender Information Value Date Recorded Sex Assigned at Not on file Legal Sex Female 12:00 AM JET HANDLER Gender Identity Not on file Sexual Orientation [...] on filedocumented in this encounter Care Teams Touch Up Painter Hand Relationship Specialty Start Date End Date No, Physician PCP - General 07/07/17 09/03/17 Cristobal Olivas MD [address] [place] [address] PCP - General Surgery 09/04/17 07/12/18 Jason Isaacs MD [address] [place] [address] PCP - General Internal Medicine 07/13/18 documented as of this encounter
--- OUTSIDE RECORDS SUMMARY | 2025-03-03 09:37 | XMS_ITS | Patient Health Record ---
Author Organization [facility] Address [address] [place], [place] [address] Care Team Providers Care Eyewear Consultant Name Role Phone GISELLE Degroot Unavailable [phone] Jason Isaacs Unavailable Unavailable Reason For Referral No Information Medications Medication SIG (Take, Route, Frequency, Duration) Notes Start Date End Date Status Ascorbic Acid 500 MG Oral Tablet ORAL ascorbic acid 500 MG Oral TabletOriginal Medicationascorbic acid 500 MG Oral Tablet *Reorder from ZEFR for eRx and Interaction Alerts* 04/18/2019 Active Magnesium Oxide 400 MG Oral Tablet magnesium oxide 400 MG Oral TabletOriginal Medicationmagnesium oxide 400 MG Oral Tablet *Reorder from ZEFR for eRx and Interaction Alerts* 05/13/2021 6 Active Lysine 500 MG Oral Tablet ORAL lysine 500 MG Oral TabletOriginal Medicationlysine 500 MG Oral Tablet *Reorder from ZEFR for eRx and Interaction Alerts* 04/18/2019 Active calcium citrate 950 MG / cholecalciferol 250 UNT Oral Tablet ORAL calcium citrate 950 MG / cholecalciferol 250 UNT Oral TabletOriginal Medicationcalcium citrate 950 MG / cholecalciferol 250 UNT Oral Tablet *Reorder from ZEFR for eRx and Interaction Alerts* 04/18/2019 Active magnesium oxide 400 MG Oral Capsule ORAL magnesium oxide 400 MG Oral CapsuleOriginal Medicationmagnesium oxide 400 MG Oral Capsule *Reorder from ZEFR for eRx and Interaction Alerts* 04/18/2019 Active potassium chloride 20 MEQ Powder for Oral Solution ORAL potassium chloride 20 MEQ Powder for Oral SolutionOriginal Medicationpotassium chloride 20 MEQ Powder for Oral Solution *Reorder from ZEFR for eRx and Interaction Alerts* 04/18/2019 Active [...] Date Coverage End Date Medicare Part B [place] [address] [place] [address] [id number] MELI VELEZ Self - patient is the insured [employer] [address] [place] [id number] MELI VELEZ Self - patient is the insured
[2025-03-03 09:55] VITALS: BP 102/58; PULSE 68; RESP 14
--- NOTE | 2025-03-03 10:00 | PC.NURSE ---
Tolerated yearly Reclast infusion well. SEE MAR/patient care notes.
== END 2025-03-03 08:59 | disposition home or self-care (01) ==
PROVIDERS: PCP Internal Medicine; Visit Provider Internal Medicine
DX: M81.0 Age-related osteoporosis without current pathological fracture (principal)
CPT/HCPCS: 96374; J3489

== ENCOUNTER 2025-04-10 16:35 | Outpatient (CLI) | payer MEDICARE, SELFPAY ==
--- NOTE | ~2025-04-10 | XR_ITS ---
EXAMINATION: XR ribs LT 2V w CXR 2V, 04/10/2025 16:45 INSPECTOR ELECTROMECHANICAL HISTORY: CHEST WALL PAIN COMPARISON: No comparisons available. Findings: No acute fracture or malalignment. No significant degenerative changes. Soft tissues unremarkable. Impression: No acute fracture or malalignment. Reviewed, dictated and finalized at location [facility] ELECTROMECHANICAL Impression: No acute fracture or malalignment.
--- OUTSIDE RECORDS SUMMARY | 2025-04-10 18:18 | XMS_ITS | Encounter Summary ---
Author Organization [facility] Healthcare Address [address] [place] [address] Care Team Providers Care Dope Maintenance Worker Name Role Phone No, Physician Primary Care Provider [phone] Cristobal Olivas MD Primary Care Provider [phone] Jason Isaacs MD Primary Care Provider [phone] Encounter Details Date Type Department Care Team (Late st Contact Info) Description 07/07/2017 Orders Only [facility] Health Information Management [address] [place] [address] Scanning, Provider Social History Tobacco Use Types Packs/Day Years Used Date Smoking Tobacco: Never Assessed Comments Unknown Sex and Gender Information Value Date Recorded Sex Assigned at Not on file Legal Sex Female 12: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
--- OUTSIDE RECORDS SUMMARY | 2025-04-10 18:18 | XMS_ITS | Patient Health Record ---
Author Organization [facility] Address [address] [place], [place] [address] Care Team Providers Care Sanitation Worker Cleaning Machinery Name Role Phone GISELLE Degroot Unavailable [phone] Jason Isaacs Unavailable Unavailable Reason For Referral No Information Medications Medication SIG (Take, Route, Frequency, Duration) Notes Start Date End Date Status Ascorbic Acid 500 MG Oral Tablet ORAL ascorbic acid 500 MG Oral TabletOriginal Medicationascorbic acid 500 MG Oral Tablet *Reorder from [employer] for eRx and Interaction Alerts* 04/18/2019 Active Magnesium Oxide 400 MG Oral Tablet magnesium oxide 400 MG Oral TabletOriginal Medicationmagnesium oxide 400 MG Oral Tablet *Reorder from [employer] for eRx and Interaction Alerts* 05/13/2021 6 Active Lysine 500 MG Oral Tablet ORAL lysine 500 MG Oral TabletOriginal Medicationlysine 500 MG Oral Tablet *Reorder from [employer] for eRx and Interaction Alerts* 04/18/2019 Active calcium citrate 950 MG / cholecalciferol 250 UNT Oral Tablet ORAL calcium citrate 950 MG / cholecalciferol 250 UNT Oral TabletOriginal Medicationcalcium citrate 950 MG / cholecalciferol 250 UNT Oral Tablet *Reorder from [employer] for eRx and Interaction Alerts* 04/18/2019 Active magnesium oxide 400 MG Oral Capsule ORAL magnesium oxide 400 MG Oral CapsuleOriginal Medicationmagnesium oxide 400 MG Oral Capsule *Reorder from [employer] for eRx and Interaction Alerts* 04/18/2019 Active potassium chloride 20 MEQ Powder for Oral Solution ORAL potassium chloride 20 MEQ Powder for Oral SolutionOriginal Medicationpotassium chloride 20 MEQ Powder for Oral Solution *Reorder from [employer] for eRx and Interaction Alerts* 04/18/2019 Active [...] Date Coverage End Date Medicare Part B [place] [address] [place] [address] [id number] MELI VELEZ Self - patient is the insured [employer] [address] [place] [id number] MELI VELEZ Self - patient is the insured
--- OUTSIDE RECORDS SUMMARY | 2025-04-10 18:18 | XMS_ITS | Clinical Summary ---
Author Organization [facility] [address] Address [address] [place] [address] Care Team Providers Care Software Project Engineer Name Role Phone Jason Isaacs MD Primary Care Provider [phone] Allergies Active Allergy Reactions Criticality Noted Date [...] mg tablet 1 Active cholecalciferol (VITAMIN D-3) 52603 unit capsule Take 1 capsule (10,000 Units [...] Description 02/03/2025 11:30 AM CDT Office Visit [facility] Cardiology [address] [facility] [address] [place] [address] Edilberto Oscar MD PAF (paroxysmal atrial fibrillation) [...] on file Legal Sex Female 12:00 AM DELIVERY TECH Gender Identity Not on file Sexual Orientation Not on file Last Filed Vital Signs Vital Sign Reading Time Taken Comments Blood Pressure 132/60 02/03/2025 11:10 AM CDT Pulse 71 02/03/2025 11:10 AM CDT Temperature 36.8 C (98.2 F) 06/12/2020 11:58 AM DELIVERY TECH Respiratory Rate - - Oxygen Saturation 94% [...] 02/09/2020, Additional history exists Insurance MEDICARE MEDICARE [facility] MEDICARE SUPPLEMENT Care Teams Software Project Engineer Relationship Specialty Start Date End Date Jason Isaacs MD PCP - General Internal Medicine 07/13/18
--- OUTSIDE RECORDS SUMMARY | 2025-04-10 18:19 | XMS_ITS | Clinical Summary ---
Author Organization [facility] Address [address] [place] [address] Phone Care Team Providers Care Sausage Cooker Name Role Phone Jason Isaacs MD Primary Care Provider [phone] Allergies Active Allergy Reactions Criticality Noted Date [...] Comments Blood Pressure 122/60 04/02/2022 10:22 AM STEEL BOX TOE INSERTER Pulse 72 04/02/2022 10:22 AM STEEL BOX TOE INSERTER Temperature 35.3 C (95.5 F) 04/02/2022 10:22 AM STEEL BOX TOE INSERTER Respiratory Rate - - Oxygen Saturation - - Inhaled Oxygen Concentration - - Weight 66.2 kg (146 lb) 04/02/2022 10:22 AM STEEL BOX TOE INSERTER Height 162.6 cm (5' 4) 04/02/2022 10:22 AM STEEL BOX TOE INSERTER Body Mass Index 25.06 04/02/2022 10:22 AM STEEL BOX TOE INSERTER Plan of Treatment Health Maintenance Due Date Last Done Comments Pneumococcal PPSV23/PCV13 65 + Years / Low and Medium Risk (1 of 2 - PCV) 1994 Influenza Vaccine (#1) 2024 2, 02/18/2021, 02/09/2020 Insurance MEDICARE [facility] Care Teams Sausage Cooker Relationship Specialty Start Date End Date Jason Isaacs MD [address] [place] [address] PCP - General Internal Medicine 10/10/19
--- OUTSIDE RECORDS SUMMARY | 2025-04-10 18:19 | XMS_ITS | Clinical Summary ---
Author Organization [facility] Lizzeth Yuan Address [address] [place] [address] Care Team Providers Care Chainer Name Role Phone Jason Isaacs MD Primary Care Provider [phone] Allergies Active Allergy Reactions Criticality Noted Date [...] MOUTH EVERY DAY Active Calcium Cmb 2-D3-Min [id number] (Citracal Plus Bone Density) 300-200-13.5 mg-unit-mg Tablet [...] on file Legal Sex Female 1:47 PM PAPER BALING MACHINE OPERATOR Gender Identity Not on file Sexual Orientation Not on file Last Filed Vital Signs Vital Sign Reading Time Taken Comments Blood Pressure 169/79 05/13/2023 9:11 AM PAPER BALING MACHINE OPERATOR Pulse 79 05/13/2023 9:08 AM PAPER BALING MACHINE OPERATOR Temperature 36 C (96.8 F) 05/13/2023 9:08 AM PAPER BALING MACHINE OPERATOR Respiratory Rate 10 05/13/2023 9:08 AM PAPER BALING MACHINE OPERATOR Oxygen Saturation 96% 05/13/2023 9:08 AM PAPER BALING MACHINE OPERATOR Inhaled Oxygen Concentration - - Weight 68.5 kg (151 lb) 05/13/2023 9:08 AM PAPER BALING MACHINE OPERATOR Height 170.2 cm (5' 7) 12/31/2021 10:16 [...] Discontinued Insurance MEDICARE PART A AND B [facility] SUPP Care Teams Chainer Relationship Specialty Start Date End Date Jason Isaacs MD [address] [place] [address] PCP - General Internal Medicine 06/25/20
== END 2025-04-10 16:36 | disposition home or self-care (01) ==
PROVIDERS: PCP Internal Medicine; Visit Provider Internal Medicine
DX: R07.89 Other chest pain (principal); M81.0 Age-related osteoporosis without current pathological fracture
CPT/HCPCS: 71046; 71100